=== PATIENT | female | born 1935 | race Caucasian/White ===

== ENCOUNTER → 2017-06-02 10:38 | Outpatient (CLI) | payer MEDICARE, SELFPAY ==
[2017-06-02 12:15] LABS: AST(SGOT) 19 U/L (15-37); Alanine Aminotransfer ALT/SGPT 20 U/L (13-56); Anion Gap 8 (5-15); BUN 25 mg/dL (7-18); BUN/Creat Ratio 33.7 RATIO (10-20); Calcium,Total 9.4 mg/dL (8.5-10.1); Chloride 105 mmol/L (98-107); Cholesterol 135 mg/dL (200); Creatinine, Serum 0.74 mg/dL (0.55-1.02); EST Glomerular Filtration Rate 80 mL/min (>60); Est Glom Filt Rate - Afr Amer 97 mL/min (>60); Glucose 98 mg/dL (74-106); High Density Lipoprotein 57 mg/dL; Potassium 3.7 mmol/L (3.5-5.1); Sodium Level 139 mmol/L (136-145); Triglycerides 127 mg/dL; Very Low Density Lipoprotein 25 mg/dL (5-40)
== END ==
PROVIDERS: Family Provider Family Medicine; PCP Family Medicine; Visit Provider Family Medicine
DX: I10 Essential (primary) hypertension (principal); E78.5 Hyperlipidemia, unspecified
CPT/HCPCS: 36415; 80048; 80061; 84450; 84460

== ENCOUNTER → 2017-09-22 12:43 | Outpatient (CLI) | payer MEDICARE, SELFPAY ==
--- NOTE | 2017-09-22 12:52 | RAD_ITS ---
STUDY: X-RAY - PELVIS AND RIGHT HIP REASON FOR EXAM: Right hip pain. TECHNIQUE: Radiological exam, hip, unilateral, with pelvis when performed; 2 or 3 views. COMPARISON: Radiographs 07/16/2016 and 01/29/2015. FINDINGS: There is a soft tissue calcification overlying the medial right femoral head neck junction unchanged since the prior study. There are small calcifications adjacent to the ischial tuberosities bilaterally unchanged since the prior study. There is evidence of vertebroplasty at the L3 level. Normal bilateral iliac wings, sacroiliac joints and visualized sacrum. Normal bilateral superior and inferior pubic rami. Normal pubic symphysis. Normal bilateral ischial tuberosities. Normal visualized femoral head. Normal acetabulum. Normal hip joint. RAD/Hip 2-3 Views with Pelvis IMPRESSION: Soft tissue calcifications without interval change. Otherwise, unremarkable x-ray examination of the right hip. Electronically Signed: Gregg Jama MD at 9:57 EDT Tel , Service support ,
== END ==
PROVIDERS: Family Provider Family Medicine; PCP Family Medicine; Visit Provider Family Medicine
DX: M25.551 Pain in right hip (principal)
CPT/HCPCS: 73502

== ENCOUNTER → 2017-11-30 11:39 | Outpatient (CLI) | payer MEDICARE, SELFPAY ==
[2017-11-30 14:14] LABS: Absolute Neutrophil Count 4.5 X10^3/uL (2.0-7.7); Basophil# 0.04 X10^3/uL; Basophil% 0.5 % (0-1); Eosinophil# 0.11 X10^3/uL; Eosinophils% 1.5 % (0-5); Hematocrit 38.9 % (37-47); Hemoglobin 13.5 g/dl (12.0-15.0); Lymphocyte % 24.4 % (19-41); Mean Corp Hgb Conc 34.7 g/gl (32-36); Mean Corpuscular Hgb 31.4 pg (27.0-32.0); Mean Corpuscular Volume 90.5 fL (81-99); Mean Platelet Vol. 9.9 fl (6.2-12.0); Monocyte# 0.95 X10^3/uL; Monocyte% 12.9 % (0-10); Neutrophil # 4.46 X10^3/uL (2.7-7.7); Neutrophil % 60.6 % (47-70); Platelet Count 208 K/mm3 (150-450); RBC Distribution Width CV 13.2 % (11.6-14.6); RBC Distribution Width SD 43.4 fl (35.1-43.9); White Blood Count 7.4 K/mm3 (4.4-11.0)
[2017-11-30 14:17] LABS: POSITIVE COUNT NO; POSITIVE DIFFERENTIAL NO; POSITIVE MORPHOLOGY NO
[2017-11-30 14:25] LABS: ALB/GLOB Ratio 0.8 RATIO (0.9-2.4); AST(SGOT) 15 U/L (15-37); Alanine Aminotransfer ALT/SGPT 18 U/L (13-56); Albumin, Serum 3.2 g/dL (3.2-5.0); Alkaline Phosphatase 64 U/L (45-117); Anion Gap 7 (5-15); BUN 20 mg/dL (7-18); BUN/Creat Ratio 28.2 RATIO (10-20); Calcium,Total 9.2 mg/dL (8.5-10.1); Chloride 101 mmol/L (98-107); Creatinine, Serum 0.71 mg/dL (0.55-1.02); EST Glomerular Filtration Rate 84 mL/min (>60); Est Glom Filt Rate - Afr Amer 102 mL/min (>60); Globulin 3.9 g/dL (2.2-4.2); Glucose 84 mg/dL (74-106); Potassium 3.5 mmol/L (3.5-5.1); Protein, Total 7.1 g/dL (6.4-8.2); Sodium Level 136 mmol/L (136-145); Thyroid Stim Hormone (TSH) 0.88 uIU/mL (0.358-3.74)
== END ==
PROVIDERS: Family Provider Family Medicine; PCP Family Medicine; Visit Provider Family Medicine
DX: R06.09 Other forms of dyspnea (principal)
CPT/HCPCS: 36415; 80053; 84443; 85025

== ENCOUNTER 2017-12-07 10:00 | Outpatient (RCR) | payer MEDICARE, SELFPAY ==
--- NOTE | 2017-10-09 08:10 | HP.PTEVAL_ITS ---
Patient's Visit Information BA GUADARRAMA is a 82 year old F referred to Physical Therapy by Olga Hurst MD with a diagnosis of Right hip and back pain. Date of Evaluation: 10/09/17 Physical Therapist: Rani Mares - Visit Plan Frequency: 2x /Week Duration: 4 Weeks Plan: Focus on LE and core s/s - Subjective Subjective: Patient reports that her right hip was really bothering her and she went to see the MD who thinks the pain is coming from her back. Thursday she had an injection in her right hip. The injection has helped. She always hurts in the AM. Worst: 02/03 Agg: early in the AM, weather. Eases: Tylenol, pain manamgement, ice/heat and moving. Best: 06/06 Normally zach shooting pains that go to the ankle. N/T comes and goes- no difficulty with the left side. She has been walking a mile a day at [employer] and outside when its nice. Sleep: occasionally wakes her up but she sleeps better when tylenol before bed. X-ray was taken a few weeks ago. PMhx: HTN Meds: hydrocholosel, lysterel, baby asprin, statin.She lives with her sister in law who does all the driving. She lives in a 1 story home with 2 stairs to get into the back door. - Objective Posture: Static sitting with slouched posture and increase posterior pelvic tilt ; Static standing; maintains upright posture but does weight shift to the left. HR/TR: able with UE A-reports pulling in the right LE. SLS: WS but unable to SLS and reports pain in the right hip. Sit to Stand: able with good technique with 2 UE A. ROM: Lumbar: flexion decreased by 50%, extn to neutral, SB and Rot: decreased by 50% bilateral. Hip/Knee/Ankle: WFL- reports discomfort with right hip ROM. Gait: antalgic- uses rollerator but is moving better than discharge from PT in February. She has a good teri with decreased stance on the Right LE. Balance: Static and dynamic sitting: good, Static Standing: fair. Dynamic Standing: fair minus. Strength: Core: poor, Right Hip: 4-/5 throughout Knee: 4/5, Ankle: 4/5, Left:Hip: 4/5, Knee: 4+/5, Ankle: 4+/5. Flex: HS: severe, Gastroc: mod. Special Test: slump: positive - Goals Goal 1:: Patient will be I with HEP and progression Goal Time Frame: 4-6 Weeks Goal 2:: Patient will ambulate >300 feet with LRD and normalized gait pattern Goal Time Frame: 4-6 Weeks Goal 3:: Patient will maintain proper posture t/o tx session to demo increased core s/s Goal Time Frame: 4-6 Weeks Goal 4:: Patient will report 5/10 pain for 1 week at its worst Goal Time Frame: 4-6 Weeks - Rehabilitation Potential Physical Therapy Diagnosis: Patient presents with hypomobility- she has decreased core s/s leading to poor posture and increased pain Rehabilitation Potential: Fair - Anticipated Interventions Patient/Client Instruction: Educate patient on: Benefits of Fitness Program For the Purpose of:: To improve ability to perform ADL's Therapeutic Exercise to Include: Strength training, Balance training, Body mechanics, Postural training, Flexibilty training, Gait and locomotor training, Dynamic Lumbar Stabilization For the Purpose of:: To improve muscle performance and motor function TENS: Yes Cryotherapy (ice pack, ice massage): Yes Thermo therapy (hot pack): Yes Ultrasound (thermal/non thermal): Yes For the Purpose of:: To decrease pain Thank you for the opportunity to evaluate your patient. For Medicare and Medicare HMO plans, please review the plan of care and approve it. It will need to be FAXED BACK to us at [phone] for Medicare purposes. Please let me know if there are questions or concerns regarding this plan of care. Physician Signature: Date:
--- NOTE | 2017-11-23 10:59 | HP.PTREVAL_ITS ---
Olga Hurst MD, It has been my pleasure to treat BA COTTONHIFLOYD over the last 10 visits for Right hip and back pain. Please see the progress note below for an update on the physical therapy plan of care! Subjective: Patient reports that she is doing great- she is 80% better. she feels she is getting stronger just isn't quite there yet- would like to do an additional 2 weeks. She has a little more pain today secondary to being on her feet all weekend. Objective/Function: Posture: Static sitting with slouched posture and increase posterior pelvic tilt; Static standing; maintains upright posture with equal weight shifting. HR/TR: able with UE A support. SLS: WS but unable to SLS and reports pain in the right hip. Sit to Stand: able with good technique with 2 UE A. ROM: Lumbar: flexion decreased by 50%, extn to neutral, SB and Rot: decreased by 50% bilateral. Hip/Knee/Ankle: WFL Gait: antalgic- uses rollerator but is moving better than initial evaluation. She has a good teri with decreased stance on the Right LE. Balance: Static and dynamic sitting: good, Static Standing: fair. Dynamic Standing: fair minus. Strength: Core: fair , Right Hip: 4/5 throughout Knee: 4+/5, Ankle: 4+/5, Left:Hip: 4/5, Knee: 4+/5, Ankle: 4+/5. Flex: HS: severe, Gastroc: mod. Special Test: slump: positive Plan Plan: Continue 2x a week for 2 weeks Goals Goal 1:: Patient will be I with HEP and progression Goal Time Frame: 4-6 Weeks Goal 2:: Patient will ambulate >300 feet with LRD and normalized gait pattern Goal Time Frame: 4-6 Weeks Goal 3:: Patient will maintain proper posture t/o tx session to demo increased core s/s Goal Time Frame: 4-6 Weeks Goal 4:: Patient will report 5/10 pain for 1 week at its worst Goal Time Frame: 4-6 Weeks Anticipated Interventions Patient/Client Instruction: Educate patient on: Benefits of Fitness Program For the Purpose of:: To improve ability to perform ADL's Therapeutic Exercise to Include: Strength training, Balance training, Body mechanics, Postural training, Flexibilty training, Gait and locomotor training, Dynamic Lumbar Stabilization For the Purpose of:: To improve muscle performance and motor function TENS: Yes Cryotherapy (ice pack, ice massage): Yes Thermo therapy (hot pack): Yes Ultrasound (thermal/non thermal): Yes For the Purpose of:: To decrease pain Please do not hesitate to contact me at [phone] by phone or Fax: if you have questions or concerns regarding this new plan of care! Sincerely, Rani Mares
--- NOTE | 2017-12-07 13:29 | HP.PTDCSUM ---
HP - PT D/C Summary It has been my pleasure to treat BA COTTONHIFLOYD under orders from Olga Hurst MD, for the diagnosis of Right hip and back pain for a total of 14 visit(s). Discharge Date: Please see the following information for a summary of their discharge status. - Subjective Subjective: Patient reports that she feels this round of therapy was really helpful. She is back to 75% of where she wants to be. No pain per say just achy. - Pain LOW BACK Pain Intensity (Out of 10): 0 RIGHT HIP Pain Intensity (Out of 10): 0 - Overall Improvement % Improvement: 80 - Objective Objective/Function: Posture: Static sitting with slouched posture and increase posterior pelvic tilt; Static standing; maintains upright posture with equal weight shifting. HR/TR: able with UE A support. SLS: WS- and will pick the opposite foot up off the floor with UE A. Sit to Stand: able with good technique with 2 UE A. ROM: Lumbar: flexion decreased by 50%, extn to neutral, SB and Rot: decreased by 50% bilateral. Hip/Knee/Ankle: WFL Gait: antalgic- uses rollerator but is moving better than initial evaluation. She has a good teri with decreased stance on the Right LE. Balance: Static and dynamic sitting: good, Static Standing: fair. Dynamic Standing: fair minus. Strength: Core: fair, Right Hip: 4/5 throughout Knee: 4+/5, Ankle: 4+/5, Left:Hip: 4/5, Knee: 4+/5, Ankle: 4+/5. Flex: HS: severe, Gastroc: mod. Special Test: slump: positive - Goals Goal 1:: Patient will be I with HEP and progression Goal Progress: Goal Met Goal 2:: Patient will ambulate >300 feet with LRD and normalized gait pattern Goal Progress: Progressing Goal 3:: Patient will maintain proper posture t/o tx session to demo increased core s/s Goal Progress: Progressing Goal 4:: Patient will report 5/10 pain for 1 week at its worst Goal Progress: Goal Met - Plan Plan: Discharge to I HEP - D/C Information If there are questions or concerns regarding this patient's physical therapy, please feel free to call me at [phone]. Thank you for the referral of this patient. Sincerely, Rani Mares
== END 2017-12-07 19:00 | disposition home or self-care (01) ==
LOC: PT 10:00
PROVIDERS: Family Provider Family Medicine; PCP Family Medicine; Visit Provider Family Medicine
DX: M25.551 Pain in right hip (principal)
CPT/HCPCS: 97110; 97162; 97164

== ENCOUNTER → 2018-01-13 08:43 | Outpatient (CLI) | payer MEDICARE, SELFPAY ==
[2018-01-13 08:49] LABS: Mucous, Urine 0 SEEN /hpf (<or=2+)
--- NOTE | 2018-01-13 09:03 | RAD_ITS ---
STUDY: X-RAY - THORACIC SPINE REASON FOR EXAM: Female, 82 years old. Back pain. TECHNIQUE: AP and lateral view(s) of the thoracic spine were obtained. COMPARISON: None. FINDINGS: There is an increase in the normal thoracic kyphosis. There is no substantial scoliosis. There is demineralization of the thoracic spine with endplate spondylosis. There is multilevel disc space narrowing of the thoracic spine. Atherosclerotic calcification of the aortic arch. RAD/Thoracic Spine 2 Views IMPRESSION: Multilevel spondylosis and degenerative changes. Electronically Signed: Israel Denton MD at 9:52 EDT Tel [phone], Service support ,
--- NOTE | 2018-01-13 09:03 | RAD_ITS ---
STUDY: X-RAY - PELVIS AND RIGHT HIP REASON FOR EXAM: Right hip pain. TECHNIQUE: Radiological exam, hip, unilateral, with pelvis when performed; 2 or 3 views. COMPARISON: Radiographs 09/22/2017. FINDINGS: There is a soft tissue calcification overlying the medial right femoral head/neck junction unchanged since prior study. There are small calcifications adjacent to the ischial tuberosities bilaterally unchanged since the prior study. There is evidence of vertebroplasty at L3. Normal bilateral iliac wings, sacroiliac joints and visualized sacrum. Normal bilateral superior and inferior pubic rami. Normal pubic symphysis. Normal bilateral ischial tuberosities. Normal visualized femoral head. Normal acetabulum. Normal hip joint. RAD/HIP, UNI W/ Pelvis 2-3 Views IMPRESSION: Soft tissue calcifications without interval change. Otherwise, unremarkable x-ray examination of the right hip. Electronically Signed: Gregg Jama MD at 10:44 EDT Tel , Service support ,
--- NOTE | 2018-01-13 09:03 | RAD_ITS ---
STUDY: X-RAY - LUMBAR SPINE REASON FOR EXAM: Female, 82 years old. Back pain TECHNIQUE: 5 view(s) of the lumbar spine were obtained. COMPARISON: 01/30/2017 FINDINGS: Normal lumbar lordosis. There is no substantial scoliosis. There is a normal alignment of the vertebrae. There is multilevel endplate spondylosis of the lumbar vertebrae. There is multi-level degenerative disc disease with multi-level disc space narrowing. There appears to be kyphoplasty cement noted at the L3 level with retained needle components in the posterior aspect. Stable from prior exam There is atherosclerotic calcification of the abdominal aorta without a demonstrated aneurysm. RAD/L/S Spine Min 4 Views IMPRESSION: As above Electronically Signed: Fahad Chavez DO at 8:33 EDT Tel , Service support ,
[2018-01-13 10:40] LABS: Color, Urine Yellow (Yellow); Glucose, Dipstick Normal (Normal); Ketone-Dipstick Negative (Negative); Leukocyte Esterase-Dipstick 500 /ul (Negative); Nitrite-Dipstick Negative (Negative); Occult Blood-Urine 250 /ul (Negative); Protein-Dipstick 30 mg/dl (Negative); Urine Bilirubin Dipstick Negative (Negative); Urine Clarity Sl. Cloudy (Clear); Urine Urobilinogen Normal (Normal)
[2018-01-13 10:47] LABS: Red Blood Cells-Urine 25-50 SEEN /hpf (0-5); Squamous Epithelial Cells - UA 0-5 SEEN /hpf (5-10); White Blood Cells 25-50 SEEN /hpf (0-5)
[2018-01-13 10:48] LABS: Bacteria 1+ /hpf (None Seen)
== END ==
PROVIDERS: Family Provider Family Medicine; PCP Family Medicine; Visit Provider Family Medicine
DX: R35.0 Frequency of micturition (principal); M25.551 Pain in right hip; M54.5 Low back pain; M54.6 Pain in thoracic spine
CPT/HCPCS: 72070; 72110; 73502; 81001; 87077; 87086; 87088

== ENCOUNTER → 2018-03-26 06:16 | Outpatient (CLI) | payer MEDICARE, SELFPAY ==
[2018-03-15 10:10] VITALS: BMI 34.0
[2018-03-15 11:52] VITALS: BMI 34.0
--- NOTE | 2018-03-26 14:30 | STRESSREP ---
Stress Test Report Date: 03/26/2018 Procedure: Pharmacologic stress nuclear imaging study Indications: Chest pain Consent: Per the patient Procedure: The patient underwent pharmacologic (Regadenoson) evaluation with a peak heart rate of 90 beats per minute (64 predicted maximal heart rate) and a peak blood pressure of 130/62 mmHg. The baseline ECG demonstrated normal sinus rhythm. The peak pharmacologic ECG demonstrated no obvious G changes. There were no cardiac dysrhythmias pretest, during pharmacologic infusion, or recovery. There was no complaint of chest discomfort during pharmacologic infusion or recovery. The examination was discontinued secondary to completion of protocol. Impression: 1. Pharmacologic (Regadenoson) evaluation 2. Peak pharmacologic ECG with no obvious ECG changes. 3. There were no cardiac dysrhythmias pretest, during pharmacologic infusion, or recovery. 4. Nuclear images pending Myocardial perfusion imaging study: Technique: The patient was injected with 11.4 millicuries of technetium 99m Cardiolite and subsequently rest SPECT Cardiolite nuclear imaging was obtained in the horizontal long, vertical long, and short axis views. The patient underwent pharmacologic (Regadenoson) evaluation with a peak heart rate of 90 beats per minute (64 % percent predicted maximal heart rate) and a peak blood pressure of 130/62 mmHg. The patient was injected with 34.1 millicuries of technetium 99m Cardiolite and subsequently stress SPECT Cardiolite nuclear imaging was obtained in the horizontal long, vertical long, and short axis views. A gated Cardiolite study at peak stress was obtained. Interpretation: Rest and stress SPECT Cardiolite nuclear imaging status post realignment, normalization, and attenuation correction demonstrate relative uniform tracer uptake and myocardial perfusion appearing within normal limits. There is end systolic thickening and brightening. The gated Cardiolite study demonstrates myocardial thickening and inward wall motion. The reported LVEF is 91 %. Impression: 1. Rest and stress SPECT Cardiolite nuclear imaging demonstrate relative uniform tracer uptake and myocardial perfusion appearing within normal limits. 2. The gated Cardiolite study reports an LVEF of 91 %. This note was generated with [employer] software. It may contain incorrect words, spelling, and punctuation that were not noted in checking the note before signing.
--- NOTE | 2018-03-26 16:36 | RAD_ITS ---
HISTORY: CHRONIC PAIN, NKI COMPARISON: 01/13/2018 FINDINGS: XR Hip Unilateral with Pelvis when performed; 3 Views: With comparison to previous, no significant change. No fracture or acute disease. The right and left femoral acetabular joint spaces are preserved. No bony erosions. Stable soft tissue calcifications at the hamstring origins bordering the ischial tuberosities, more so on the left. Vaginal pessary device, unchanged. Previous L3 kyphoplasty. The SI joints appear preserved. RAD/HIP, UNI W/ Pelvis 2-3 Views IMPRESSION: 1. No acute disease or significant change. 2. No significant arthritis of the right hip. 3. 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 at [id number] Reported and signed by: Remy Goodson MD Electronically Signed: Remy Goodson, at 4:30 EST Tel , Service support ,
--- OUTSIDE RECORDS SUMMARY | 2018-05-21 00:58 | XMS RPT_ITS ---
:1935 Author Organization OHIP Support Name Relationship Address Phone MARILYN CHEW Unavailable [address] + [place] [address] R Unavailable Unavailable Unavailable VARNS, HELENA Unavailable [address] + [place] [address] MARILYN CHEW Unavailable [address] + [place] [address] R Unavailable Unavailable Unavailable VARNS, HELENA Unavailable [address] + [place] [address] MARILYN CHWE Unavailable [address] + [place] [address] R Unavailable Unavailable Unavailable VARNS, HELENA Unavailable [address] + [place] [address] MARILYN CHEW Unavailable [address] + [place] [address] R Unavailable Unavailable Unavailable VARNS, HELENA Unavailable [address] + [place] [address] MARILYN CHEW Unavailable [address] + [place] [address] R Unavailable Unavailable Unavailable VARNS, HELENA Unavailable [address] + [place] [address] MARILYN CHEW Unavailable [address] + [place] [address] R Unavailable Unavailable Unavailable VARNS, HELENA Unavailable [address] + [place] [address] MARILYN CHEW Unavailable [address] + [place] [address] R Unavailable Unavailable Unavailable VARNS, HELENA Unavailable [address] + [place] [address] MARILYN CHEW Unavailable [address] + [place] [address] R Unavailable Unavailable Unavailable VARNS, HELENA Unavailable [address] + [place] [address] ANNEMARIE CEHWE Unavailable [address] + [place] [address] R Unavailable Unavailable Unavailable VARNS, HELENA Unavailable [address] + [place] [address] ANNEMARIE CHEWE Unavailable [address] + [place] [address] R Unavailable Unavailable Unavailable VARNS, HELENA Unavailable [address] + [place] [address] JEEVAN MARILYN Unavailable [address] + [place] [address] R Unavailable Unavailable Unavailable VARNS, HELENA Unavailable [address] + [place] [address] ANNEMARIE CHEWE Unavailable [address] + [place] [address] R Unavailable Unavailable Unavailable VARNS, HELENA Unavailable [address] + [place] [address] Care Team Providers Name Role Phone NEYFRANKOT WILLAMS, ZULEMA Referring Unavailable NEYHART WILLAMS, ZULEMA Attending Unavailable NEYHART WILLAMS, ZULEMA Referring Unavailable NEYHART WILLAMS, ZULEMA Referring Unavailable NEYHART WILLAMS, ZULEMA Attending Unavailable NEYHART WILLAMS, ZULEMA Referring Unavailable NEYHART WILLAMS, ZULEMA Attending Unavailable NEYHART WILLAMS, ZULEMA Attending Unavailable NEYHART WILLAMS, ZULEMA Referring Unavailable NEYHART WILLAMS, ZULEMA Attending Unavailable NEYHART WILLAMS, ZULEMA Attending Unavailable NEYHART WILLAMS, ZULEMA Referring Unavailable Jolliff, Olga Attending Unavailable Jolliff, Olga S Referring Unavailable Jolliff, Olga Primary Care Unavailable Jolliff, Olga Attending Unavailable Jolliff, Olga Primary Care Unavailable Rubin Arriaga Attending Unavailable Jolliff, Olga Referring Unavailable Jolliff, Olga Attending Unavailable Jolliff, Olga Referring Unavailable Jolliff, Olga Primary Care Unavailable Jolliff, Olga Attending Unavailable Basali, Ayman Referring Unavailable Jolliff, Olga Primary Care Unavailable Jolliff, Olga Attending Unavailable Jolliff, Olga Primary Care Unavailable Giacomo Dyer Attending Unavailable Jolliff, Olga Primary Care Unavailable Kline Daphnie Attending Unavailable Jolliff, Olga Referring Unavailable Sal Judd Attending Unavailable Jolliff, Olga Referring Unavailable Kline, Daphnie Attending Unavailable Kline, Daphnie Referring Unavailable Jolliff, Olga Primary Care Unavailable Jolliff, Olga Consulting Unavailable Jolliff, Olga Attending Unavailable Jolliff, Olga Referring Unavailable Jolliff, Olga Primary Care Unavailable Jolliff, Olga Attending Unavailable Jolliff, Olga Referring Unavailable Jolliff, Olga Primary Care Unavailable PROBLEMS PROBLEMS DATE TYPE CONDITION / CODE ATTENDING STATUS SOURCE Unknown E78.5 - Hyperlipidemia, [place]line, Active [place] 8 unspecified / [facility] E78.5(ICD-10) Hospital Repository Unknown I10 - Essential (primary) Kline, Active [place] hypertension / [facility] I10(ICD-10) Hospital Repository Unknown R07.89 - Other chest pain [place], Active [place] / R07.89(ICD-10) [facility] Hospital Repository Unknown E78.00 - Pure [place], Active [place] 8 hypercholesterolemia, [facility] unspecified / Hospital E78.00(ICD-10) Repository Unknown E78.0 - Pure [place], Active [place] 8 hypercholesterolemia / [facility] E78.0(ICD-10) Hospital Repository Unknown R55 - Syncope and [place]line, Active [place] 8 collapse / R55(ICD-10) [facility] Hospital Repository Unknown M25.551 - Pain in right [place], Active [place] 8 hip / M25.551(ICD-10) [facility] Hospital Repository Unknown R35.0 - Frequency of [place], Active [place] 8 micturition / [facility] R35.0(ICD-10) Hospital Repository Unknown M54.9 - Dorsalgia, [place], Active [place] unspecified / [facility] M54.9(ICD-10) Hospital Repository Active Unknown / UNK(Unknown) NEYHART Active [place] [facility] WILLAMS, Clinic Main ZULEMA [place] Repository Active Encounter for screening NA Active [place] 8 for malignant neoplasm of Clinic Main colon / Z12.11(ICD-10) [place] Repository Active Encounter for screening NA Active [place] 8 mammogram for malignant Clinic Main neoplasm of breast / [place] Z12.31(ICD-10) Repository Unknown 272.4 - Other and Olga Hurst Active [place] 8 unspecified [facility] hyper[facility] / Hospital 272.4(ICD-9) Repository Unknown 401.9 - Unspecified Olga Hurst Active [place] 8 essential hypertension / [facility] 401.9(ICD-9) Hospital Repository PROCEDURES PROCEDURES No Procedure Records FoundRESULTS RESULTS VENOUS DUPLEX LOWER Observed: 04/13/2018 Status: F Source: [place] EXTREMITY 7:24 PM [facility] REPOSITORY [facility] Cardiovascular Services [address] [place] [id number] Venous Duplex US, Unilateral 04/13/18 1523 MR#: [id number] Acct: [id number] Name: BA SENIOR Rep #: [id number] : 1935 83 From: Wolf Severino MD Attending Dr: Olga Hurst MD Status: REG CLI Ordering Dr: Olga Hurst MD Date: 04/13/18 Location: CVS Sex: F C Admitted: Reason For Study: swelling RIGHT LEFT GSV is normal. CFV is compressible, spontaneous, phasic, CFV is compressible, spontaneous, phasic, competent, and demonstrates normal competent and demonstrates normal augmentation. augmentation. FV is compressible, spontaneous, phasic, competent and demonstrates normal augmentation. POP V is compressible, spontaneous, phasic, competent and demonstrates normal augmentation. T/P Trunk is compressible. PTV is compressible. RT PerV is compressible. Procedure Exam performed in department. The exam was diagnostic. A preliminary report was called and/or faxed to Dr. Hurst. Interpretation Summary Deep veins of the right lower extremity are patent and compressible segmentally. There is no evidence of right lower extremity deep vein thrombosis. Valvular competence appears intact within the proximal deep venous system on the right . The right greater saphenous vein appears patent and compressible segmentally. Ordering Physician: Olga Hurst Performed By: Missael Oakley, RVT 04/13/181923 Date Wolf Severino MD CC: Olga Hurst MD; Olga Hurst MD Date Dictated: 04/13/18 1523 Date Transcribed: 04/13/181923 Manager Therapy: Signed INITAL EVALUATION (1) Observed: 04/08/2018 Status: F Source: [place] - PT 5:27 PM [facility] REPOSITORY [facility] Physical Therapy [address] [place] [address] Fax REHABILITATION SERVICES INITIAL EVALUATION MR#: [id number] Acct: [id number] Name: BA SENIOR Rep #: [id number] : 1935 83 From: Jeevan Culver PT, Cert. MDT, OCS Referring Dr.: Olga Hurst MD Status: REG R Insurance: [facility] SELF PAY INSURANCE Patient's Visit Information BA SENIOR is a 83 year old F referred to Physical Therapy by Olga Hurst MD with a diagnosis of RIGHT HIP PAIN. Date of Evaluation: 04/07/18 Physical Therapist: Jeevan Culver PT, - Visit Plan Frequency: 2x /Week Duration: 6WEEKS Plan: [facility] for POSTURAL EX'S GRADED DLS,ROM HIP KNEE - Subjective Findings: This 83 y/o female presents to physical therapy with right hip pain. Patient has had hip and knee pain for over a year. Patient had h/o kyphoplasty in September 2016. Patient also has had prior PT for back and hip with [facility]. Patient has used rollator many about one year for for balance. Patient pain located in right gluteus region and right knee. Patient symptoms walking and standing 2 mins,unable to lift . Patient has difficulty with steps.Symptoms better with rest and sitting. Symptoms affects ADL'S and function/QOL. BOWEL/BLADDER -. Denies pararhesia/tingling. Pateinmt has difficulty walking in community. When patient seen DR x-rays done. Patient symptoms affect sleeping. Patient plans to seen pain management DR Jones. SOCAIL: ,sister in law lives with patient. VOCATION: - Pain Right Buttocks Pain Intensity (Out of 10): 10 Pain Intensity Range: 10 Right Knee Pain Intensity (Out of 10): 10 Pain Intensity Range: 10 - Objective POSTURE: mild thoracic kyphosis ,hips knees flexed foward,foward posture. PALPATION: right knee tender grossly ,right gluteus. NEURO: denies parathesia/tingling,reflexes L3-4,L4-5,L5-S1 1/3. GAIT: mild foward posture reciprocal pattern slow cadnce decrease stance time right leg. AROM: hip 100 degrees,abd 40 degrees ,knee 120 degrees supine flexion. MMT: quads/hams 3+/5 right ,left 4-/5,hip flexion 3+/5 bilateral ankle 4/5. LUMBAR ROM: flexion mod pain ,severe extesnion pain right buttuck,right side glides mod pain to right glut. BALANCE: fair+ with rollator - Special Tests L/S Slump test left side: Negative L/S Slump test right side: Negative L/S Left Straight Leg Raise: Negative L/S Right Straight Leg Raise: Negative R Hip Scour: Negative R Hip Trendelenberg - Glut Medius: Negative R Hip Adriana - IT Band: Negative - Goals Goal 1:: Independant with [facility] program Goal Time Frame: 4-6 Weeks Goal 2:: Patient right hip posterior gluteus and knee pain by 40-% to improve gait Goal Time Frame: 4-6 Weeks Goal 3:: Patient to improve gait with rollator with community distances with less pain Goal Time Frame: 4-6 Weeks Goal 4:: Patient increase strength of BLE by 1/2 grade to improve function with gait . Goal Time Frame: 4-6 Weeks Goal 5:: Patient to improve LFES score by 10 points or greater to improve gait. Goal Time Frame: 4-6 Weeks - Rehabilitation Potential Physical Therapy Diagnosis: Patient was refeered to PT for right hip but pain located right gluteus with pain with lumbar ROM,eakness right leg ,scouring test - for hip ,symptoms worse with walking and standing thus needs rollator thus benifit from skilled PT with [facility] Rehabilitation Potential: Good - Anticipated Interventions Patient/Client Instruction: Educate patient on: Condition, Plan of Care For the Purpose of:: To decrease pain, To increase ROM, To improve muscle performance and motor function, To improve ability to perform ADL's, To increase tolerance to activity/condition/position, To improve ability of physical actions for home/community/work/leisure, To improve gait and locomotor functions, To improve health of tissue, To decrease soft tissue restriction, To increase flexibility/ROM, To assume or resume ADL's, To reduce risk of recurrence, To improve ability to perform tasks related to life management Therapeutic Exercise to Include: Strength training, Postural training, Flexibilty training, In an aquatic setting, Active ROM, Dynamic Lumbar Stabilization For the Purpose of:: To decrease pain, To increase ROM, To improve ability to perform ADL's, To increase tolerance to activity/condition/position, To improve ability of physical actions for home/community/work/leisure, To improve gait and locomotor functions, To improve health of tissue, To decrease soft tissue restriction, To improve safety with gait, To improve ability to perform tasks related to life management Thank you for the opportunity to evaluate your patient. For Medicare and Medicare HMO plans, please review the plan of care and approve it. It will need to be FAXED BACK to us at [phone] for Medicare purposes. For Medicare only, by signing this I certify the plan of care. Please let me know if there are questions or concerns regarding this plan of care. Physician Signature: Date: <Electronically signed by Jeevan Culver PT, Cert. MDT, OCS> 04/08/18 6217 CC: Olga Hurst MD LIZ Signed CNOV Observed: 04/07/2018 Status: COMPLETED Source: [place] 11:20 AM [facility] REPOSITORY Office Visit (WOOB) NATEBA BARRIENTOS ([id number]) 1935 F Date Time Provider Department 04/07/18 11:20 AM ZULEMA DUEÑAS During your visit today, we recorded the following information about you: Blood pressure 114/70 Zulema Lemus MD 04/07/2018 11:56 AM Signed Ba Puente Parrish is a 83 year old female who presents for pessary maintenance. Pt Reports over weekend noticed bloody discharge and foul odor. Pt denies pain, dysuria or fever. Pt reports improvement in UTIs after using Vaginal estrogen. Pt reports has never had bleeding before and is concerned- reports bleeding is heavier then spotting. 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 - Unspecified urinary incontinence Incontinence, stress/CYSTOCELE, RECTOCELE - Urge incontinence mild PAST SURGICAL HISTORY Procedure Laterality Date - APPENDECTOMY - BACK SURGERY HX 09/2016 - BX OF BREAST; INCISIONAL 2003 Bx of breast, incisional - KNEE SCOPE,DIAGNOSTIC 01-12-04 Arthroscopy, knee - LIGATE FALLOPIAN TUBE Tubal ligation - PAST SURGICAL HISTORY OF 03-03-2011 left-sided frontal craniotomy for excision of meningioma - TOTAL KNEE 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-19-04 Knee replacement, total left FAMILY HISTORY Problem Relation Age of Onset - Hypertension Mother - Heart Mother - Cancer Mother lung - Cancer Father LUNG - Heart Father - Heart Brother STROKE - Heart Sister - Diabetes Sister - Diabetes Paternal Aunt - Cancer Sister CERVIX Social History Marital status: Spouse name: Ajit [place] Years of education: Number of children: 3 Occupational History Occupation Employer Comment [employer] Ret[employer] Social History Main Topics Smoking status: Never Smoker Smokeless tobacco: Never Used Alcohol use: No Drug use: No Sexual activity: Not Currently Partners with: Male Current Outpatient Prescriptions: Aspirin 81 mg Tab Take 81 mg by mouth. atorvastatin (LIPITOR) 40 mg tablet Take 1 tablet by mouth daily at bedtime. For cholesterol. Calcium Citrate-Vitamin D3 (CITRACAL + D) 315-250 mg-unit Tab Take as directed estradiol (ESTRACE) 0.01 % (0.1 mg/gram) vaginal cream Apply fingertip amount nightly x 4 weeks then use 2-3 times per week hydrochlorothiazide (HYDRODIURIL, ESIDRIX) 25 mg tablet Take 1 tablet by mouth once daily. lisinopril (ZESTRIL, PRINIVIL) 10 mg tablet Take 1 tablet by mouth once daily. mag hydrox/aluminum hyd/simeth (MAGLOX ORAL) Take by mouth. nystatin (NYSTOP) powder Apply 1 application to affected area four times daily. oxyCODONE IR (ROXICODONE) 5 mg immediate release tablet phenazopyridine (PYRIDIUM, GERIDIUM) 200 mg tablet tiZANidine (ZANAFLEX) 4 mg tablet Take 1 tablet by mouth every 8 hours as needed (muscle spasms). (Patient not taking: Reported on 08/26/2017 ) No current facility-administered medications for this visit. Allergies As of Date: 04/07/2018 Allergen Noted Reaction AMOXICILLIN 04/16/2005 Swelling ATARAX [HYDROXYZINE HCL] 04/16/2005 Swelling CEPHALEXIN 07/15/2012 Rash CODEINE 06/25/2007 GI Upset DICICLOMINE [OTHER] 04/16/2005 Swelling FLEXERIL [CYCLOBENZAPRINE HCL] 04/16/2005 Swelling ORUVAIL [KETOPROFEN] 04/16/2005 Swelling PREDNISONE 09/11/2014 Rash SUDAFED [PSEUDOEPHEDRINE] 08/24/2009 Intolerance SULFABENZAMIDE 04/16/2005 Anaphylaxis TRAMADOL 12/31/2014 Intolerance VOLTAREN [DICLOFENAC] 04/16/2005 Swelling Fully Assessed 01/13/2018 REVIEW OF SYSTEMS Abdomen: No abdominal pain Bladder: no dysuria .. Expanded ROS: GENERAL: Negative for fever Allergies and current medication updated:Yes EXAM: BP 114/70 GENERAL: pleasant, female in no apparent distress HEENT: Normocephalic and atraumatic NECK: full range of motion DERMATOLOGY: Normal, without lesions, non-icteric and non-hirsute PELVIC: pessary removed - external genitalia normal, normal Bartholin's glands, urethra, [place]'s glands, no vulvar lesions, no cervical lesions, normal appearing perineal body and perianal region, Moderate amt of yellow discharge with odor- c/w BV- Some blood noted in vault and at OS. No ulcerations noted. BIMANUAL: uterus normal size, shape and consistency, no adnexal masses and non-tender NEURO: alert and oriented x3,exam grossly non-focal ASSESSMENT AND PLAN: Encounter Diagnosis ICD-10-CM 1. PMB (postmenopausal bleeding) N95.0 PELVIC US WHI ENDOMETRIAL BIOPSY 2. Other female genital prolapse N81.89 3. Pessary maintenance Z46.89 4. Bacterial vaginitis N76.0 metroNIDAZOLE (FLAGYL) 500 mg tablet B96.89 5. RTO one week- will consider EMB depending on ultrasound results and replace pessary. Zulema Lemus MD Referring Provider: SELF [200] Allergies As of Date: 04/07/2018 Noted Allergy Reaction AMOXICILLIN 04/16/2005 7 - Swelling ATARAX (HYDROXYZINE HCL) 04/16/2005 7 - Swelling CEPHALEXIN 07/15/2012 2 - Rash CODEINE 06/25/2007 8 - GI Upset Comments: nausea DICICLOMINE [Other] 04/16/2005 7 - Swelling FLEXERIL (CYCLOBENZAPRINE HCL) 04/16/2005 7 - Swelling ORUVAIL (KETOPROFEN) 04/16/2005 7 - Swelling PREDNISONE 09/11/2014 2 - Rash Comments: rash SUDAFED (PSEUDOEPHEDRINE) 08/24/2009 5 - Intolerance Comments: Palpitations, heart racing SULFABENZAMIDE 04/16/2005 10 - Anaphylaxis TRAMADOL 12/31/2014 5 - Intolerance 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 VOLTAREN (DICLOFENAC) 04/16/2005 7 - Swelling Date Reviewed: 04/07/2018 Reviewed by: Kendy Dozier Ma - Fully Assessed Reason for Visit: Pessary [[id number]] Primary Visit Diagnosis:PMB (postmenopausal bleeding) [N95.0] Other Visit Diagnoses:Other female genital prolapse [N81.89] Pessary maintenance [Z46.89] Bacterial vaginitis [N76.0, B96.89] Order(s):PELVIC US WHI [[id number]] Order #: [id number]: 1 metroNIDAZOLE (FLAGYL) 500 mg tabletTake 1 tablet by mouth twice daily for 7 days.Disp: 14 tabletRfl: 0 ENDOMETRIAL BIOPSY [[id number]] Order #: [id number] Prescriptions as of 04/07/2018 Sig: ASPIRIN 81 MG TABLET Take 81 mg by mouth. ATORVASTATIN 40 MG TABLET Take 1 tablet by mouth daily * CALCIUM CITRATE-VITAMIN D3 31* Take as directed ESTRADIOL 0.01% (0.1 MG/GRAM)* Apply fingertip amount nightl* HYDROCHLOROTHIAZIDE 25 MG TAB* Take 1 tablet by mouth once d* LISINOPRIL 10 MG TABLET Take 1 tablet by mouth once d* MAGLOX ORAL Take by mouth. METRONIDAZOLE 500 MG TABLET Take 1 tablet by mouth twice * NYSTATIN 100,000 UNIT/GRAM TO* Apply 1 application to affect* OXYCODONE 5 MG TABLET PHENAZOPYRIDINE 200 MG TABLET TIZANIDINE 4 MG TABLET Take 1 tablet by mouth every * Patient not taking: Reported on 08/26/2017 Problem List As Of Date 04/07/2018 Noted Resolved PAIN IN JOINT, LOWER LEG [M25.569] INVALID FOR*11/19/2007 Other and Unspecified Hyperlipidemia [E78.5] INVALID FOR* Essential Hypertension, Benign [I10] INVALID FOR* More... OSTEOPENIA [M89.9, M94.9] INVALID FOR* More... Lumbago [M54.5] INVALID FOR* Osteoarth NOS-L/Leg [M17.10] INVALID FOR* Routine general medical examination at a health*INVALID FOR*09/23/2011 Class: Chronic More... Routine gynecological examination [Z01.419] INVALID FOR*09/23/2011 Class: Chronic More... Symptomatic menopausal or female climacteric st*INVALID FOR*09/23/2011 Female Stress Incontinence [N39.3] INVALID FOR* Urgency of urination [R39.15] INVALID FOR*09/23/2011 Nocturia [R35.1] INVALID FOR*09/23/2011 Postmenopausal Atrophic Vaginitis [N95.2] INVALID FOR* Screening for malignant neoplasm of the cervix *INVALID FOR*09/23/2011 Breast screening, unspecified [Z12.31] INVALID FOR*09/23/2011 Cystocele, Midline [N81.11] INVALID FOR* Solitary cyst of breast [N60.09] INVALID FOR*09/23/2011 Impaired fasting glucose [R73.01] INVALID FOR* Hypertension [I10] 09/23/2011 Benign meningioma [D32.9] Preop exam for internal medicine [Z01.818] 09/23/2011 Seizures [R56.9] Uterovaginal prolapse, incomplete [N81.2] INVALID FOR* Dysuria [R30.0] INVALID FOR* Recurrent UTI [N39.0] INVALID FOR* Frequency of urination [R35.0] INVALID FOR* Left flank pain [R10.9] INVALID FOR* Degenerative disc disease [WRB9125] INVALID FOR* Cervical strain [S16.1XXA] INVALID FOR* Prescriptions ordered this encounter Disp Refills Start End METRONIDAZOLE 500 MG TABLET 14 t* 0 04/07/2018 04/14/2018 Route: ORAL Sig: Take 1 tablet by mouth twice daily for 7 days. Disposition: Return in about 9 days (around 04/16/2018). Follow-up and Disposition History Recorded Encounter Status:Closed by ZULEMA WILLAMS MD on 04/07/18 PROGRESS Observed: 04/07/2018 Status: COMPLETED Source: [place] 11:17 AM [facility] [place] REPOSITORY HNO ID: [id number] Author: Zulema Willams Service: (none) Author Type: Physician Type: Progress Notes Filed: 04/07/2018 11:56 AM Note Text: Ba Senior is a 83 year old female who presents for pessary maintenance. Pt Reports over weekend noticed bloody discharge and foul odor. Pt denies pain, dysuria or fever. Pt reports improvement in UTIs after using Vaginal estrogen. Pt reports has never had bleeding before and is concerned- reports bleeding is heavier then spotting. 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 - Unspecified urinary incontinence Incontinence, stress/CYSTOCELE, RECTOCELE - Urge incontinence mild PAST SURGICAL HISTORY Procedure Laterality Date - APPENDECTOMY - BACK SURGERY HX 09/2016 - BX OF BREAST; INCISIONAL 2003 Bx of breast, incisional - KNEE SCOPE,DIAGNOSTIC 01-12-04 Arthroscopy, knee - LIGATE FALLOPIAN TUBE Tubal ligation - PAST SURGICAL HISTORY OF 03-03-2011 left-sided frontal craniotomy for excision of meningioma - TOTAL KNEE 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-19-04 Knee replacement, total left FAMILY HISTORY Problem Relation Age of Onset - Hypertension Mother - Heart Mother - Cancer Mother lung - Cancer Father LUNG - Heart Father - Heart Brother STROKE - Heart Sister - Diabetes Sister - Diabetes Paternal Aunt - Cancer Sister CERVIX Social History Marital status: Spouse name: Ajit Henley Years of education: Number of children: 3 Occupational History Occupation Employer Comment [employer] Ret[employer] Social History Main Topics Smoking status: Never Smoker Smokeless tobacco: Never Used Alcohol use: No Drug use: No Sexual activity: Not Currently Partners with: Male Current Outpatient Prescriptions: Aspirin 81 mg Tab Take 81 mg by mouth. atorvastatin (LIPITOR) 40 mg tablet Take 1 tablet by mouth daily at bedtime. For cholesterol. Calcium Citrate-Vitamin D3 (CITRACAL + D) 315-250 mg-unit Tab Take as directed estradiol (ESTRACE) 0.01 % (0.1 mg/gram) vaginal cream Apply fingertip amount nightly x 4 weeks then use 2-3 times per week hydrochlorothiazide (HYDRODIURIL, ESIDRIX) 25 mg tablet Take 1 tablet by mouth once daily. lisinopril (ZESTRIL, PRINIVIL) 10 mg tablet Take 1 tablet by mouth once daily. mag hydrox/aluminum hyd/simeth (MAGLOX ORAL) Take by mouth. nystatin (NYSTOP) powder Apply 1 application to affected area four times daily. oxyCODONE IR (ROXICODONE) 5 mg immediate release tablet phenazopyridine (PYRIDIUM, GERIDIUM) 200 mg tablet tiZANidine (ZANAFLEX) 4 mg tablet Take 1 tablet by mouth every 8 hours as needed (muscle spasms). (Patient not taking: Reported on 08/26/2017 ) No current facility-administered medications for this visit. Allergies As of Date: 04/07/2018 Allergen Noted Reaction AMOXICILLIN 04/16/2005 Swelling ATARAX [HYDROXYZINE HCL] 04/16/2005 Swelling CEPHALEXIN 07/15/2012 Rash CODEINE 06/25/2007 GI Upset DICICLOMINE [OTHER] 04/16/2005 Swelling FLEXERIL [CYCLOBENZAPRINE HCL] 04/16/2005 Swelling ORUVAIL [KETOPROFEN] 04/16/2005 Swelling PREDNISONE 09/11/2014 Rash SUDAFED [PSEUDOEPHEDRINE] 08/24/2009 Intolerance SULFABENZAMIDE 04/16/2005 Anaphylaxis TRAMADOL 12/31/2014 Intolerance VOLTAREN [DICLOFENAC] 04/16/2005 Swelling Fully Assessed 01/13/2018 REVIEW OF SYSTEMS Abdomen: No abdominal pain Bladder: no dysuria .. Expanded ROS: GENERAL: Negative for fever Allergies and current medication updated:Yes EXAM: BP 114/70 GENERAL: pleasant, female in no apparent distress HEENT: Normocephalic and atraumatic NECK: full range of motion DERMATOLOGY: Normal, without lesions, non-icteric and non-hirsute PELVIC: pessary removed - external genitalia normal, normal Bartholin's glands, urethra, Clear [place]'s glands, no vulvar lesions, no cervical lesions, normal appearing perineal body and perianal region, Moderate amt of yellow discharge with odor- c/w BV- Some blood noted in vault and at OS. No ulcerations noted. BIMANUAL: uterus normal size, shape and consistency, no adnexal masses and non-tender NEURO: alert and oriented x3,exam grossly non-focal ASSESSMENT AND PLAN: Encounter Diagnosis ICD-10-CM 1. PMB (postmenopausal bleeding) N95.0 PELVIC US WHI ENDOMETRIAL BIOPSY 2. Other female genital prolapse N81.89 3. Pessary maintenance Z46.89 4. Bacterial vaginitis N76.0 metroNIDAZOLE (FLAGYL) 500 mg tablet B96.89 5. RTO one week- will consider EMB depending on ultrasound results and replace pessary. Zulema Lemus MD KNEE 3 VIEWS Observed: 03/30/2018 Status: F Source: [place] 12:05 PM [facility] REPOSITORY [facility] Imaging Services [address] [place] [address] Knee 3 Views MR#: [id number] Acct: [id number] Name: BA SENIOR Martir Rep #: [id number] : 1935 F 83 From: Israel Denton MD PCP: Olga Hurst MD Status: REG CLI Study: Knee 3 Views Date of Exam: 03/30/18 Exam# [id number] Ordering Dr: Olga Hurst MD STUDY: X-RAY - RIGHT KNEE REASON FOR EXAM: Female, 83 years old. Right knee pain. TECHNIQUE: 3 view(s) of the knee. COMPARISON: None. FINDINGS: Normal visualized distal femur. Normal visualized proximal tibia and fibula. Normal proximal tibiofibular articulation. There is mild degenerative arthrosis of the medial femorotibial compartment. Normal lateral femorotibial compartment. Normal patellofemoral articulation. The soft tissue structures are unremarkable. RAD/Knee 3 Views IMPRESSION: Degenerative arthrosis. Electronically Signed: Israel Denton MD at 10:22 EST Tel [phone], Service support , CC: Olga Hurst MD Manager Therapy: Signed HIP, UNI W/ PELVIS Observed: 03/26/2018 Status: F Source: [place] 2-3 VIEWS 4:37 PM [facility] REPOSITORY [facility] Imaging Services [address] [place] [address] HIP, UNI W/ Pelvis 2-3 Views MR#: [id number] Acct: [id number] Name: BA SENIOR Rep #: [id number] : 1935 F 83 From: Remy Goodson MD PCP: Olga Hurst MD Status: REG CLI Study: HIP, UNI W/ Pelvis 2-3 Views Date of Exam: 03/26/18 Exam# [id number] Ordering Dr: Olga Hurst MD HISTORY: CHRONIC PAIN, NKI COMPARISON: 01/13/2018 FINDINGS: XR Hip Unilateral with Pelvis when performed; 3 Views: With comparison to previous, no significant change. No fracture or acute disease. The right and left femoral acetabular joint spaces are preserved. No bony erosions. Stable soft tissue calcifications at the hamstring origins bordering the ischial tuberosities, more so on the left. Vaginal pessary device, unchanged. Previous L3 kyphoplasty. The SI joints appear preserved. RAD/HIP, UNI W/ Pelvis 2-3 Views IMPRESSION: 1. No acute disease or significant change. 2. No significant arthritis of the right hip. 3. 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 at 0433 Reported and signed by: Remy Goodson MD Electronically Signed: Remy Goodson, at 4:30 EST Tel , Service support , CC: Olga Hurst MD Manager Therapy: Signed STRESS REPORT Observed: 03/26/2018 Status: F Source: [place] 2:33 PM [facility] REPOSITORY [facility] Cardiovascular Services [address] [place] [address] MR#: [id number] Acct: [id number] Name: BA SENIOR Rep #: [id number] : 1935 83 From: Rubin Arriaga MD Primary Care: Olga Hurst MD Status: REG CLI Ordering Dr: Sex: F C Stress Test Report Date: 03/26/2018 Procedure: Pharmacologic stress nuclear imaging study Indications: Chest pain Consent: Per the patient Procedure: The patient underwent pharmacologic (Regadenoson) evaluation with a peak heart rate of 90 beats per minute (64 predicted maximal heart rate) and a peak blood pressure of 130/62 mmHg. The baseline ECG demonstrated normal sinus rhythm. The peak pharmacologic ECG demonstrated no obvious G changes. There were no cardiac dysrhythmias pretest, during pharmacologic infusion, or recovery. There was no complaint of chest discomfort during pharmacologic infusion or recovery. The examination was discontinued secondary to completion of protocol. Impression: 1. Pharmacologic (Regadenoson) evaluation 2. Peak pharmacologic ECG with no obvious ECG changes. 3. There were no cardiac dysrhythmias pretest, during pharmacologic infusion, or recovery. 4. Nuclear images pending Myocardial perfusion imaging study: Technique: The patient was injected with 11.4 millicuries of technetium 99m Cardiolite and subsequently rest SPECT Cardiolite nuclear imaging was obtained in the horizontal long, vertical long, and short axis views. The patient underwent pharmacologic (Regadenoson) evaluation with a peak heart rate of 90 beats per minute (64 % percent predicted maximal heart rate) and a peak blood pressure of 130/62 mmHg. The patient was injected with 34.1 millicuries of technetium 99m Cardiolite and subsequently stress SPECT Cardiolite nuclear imaging was obtained in the horizontal long, vertical long, and short axis views. A gated Cardiolite study at peak stress was obtained. Interpretation: Rest and stress SPECT Cardiolite nuclear imaging status post realignment, normalization, and attenuation correction demonstrate relative uniform tracer uptake and myocardial perfusion appearing within normal limits. There is end systolic thickening and brightening. The gated Cardiolite study demonstrates myocardial thickening and inward wall motion. The reported LVEF is 91 %. Impression: 1. Rest and stress SPECT Cardiolite nuclear imaging demonstrate relative uniform tracer uptake and myocardial perfusion appearing within normal limits. 2. The gated Cardiolite study reports an LVEF of 91 %. This note was generated with Revivioation software. It may contain incorrect words, spelling, and punctuation that were not noted in checking the note before signing. 03/26/18 3053 <Electronically signed by Rubin Arriaga MD> Date Rubin Arriaga MD CC: Olga Hurst MD; Daphnie Kline Date Dictated: 11/30/18 1430 Date Transcribed: 03/26/181429 Manager Therapy: PM Signed URGENT CARE VISIT Observed: 03/15/2018 Status: F Source: [place] REPORT 11:52 AM [facility] REPOSITORY [facility] [address] [place] [address] OFFICE VISIT Date of Service: 03/15/18 MR#: [id number] Acct: [id number] Name: BA SENIOR Rep #: [id number] : 1935 Provider: Sal SOTELO Age/Sex: 83/F [place] [facility] Status: Signed Intake Vital Signs03/15/18 Height 5 ft 1 in Intake Visit Reasons: LEFT BIG TOE/ INGROWN Chief Complaint: LGT erythema, tender Allergies amoxicillin [Amoxicillin] Allergy (Verified 03/15/18 11:40) Swelling cephalexin Allergy (Verified 03/15/18 11:40) Rash clindamycin Allergy (Verified 03/15/18 11:40) Hives codeine Allergy (Verified 03/15/18 11:40) Upset Stomach cyclobenzaprine HCl [From Flexeril] Allergy (Verified 03/15/18 11:40) Swelling diclofenac sodium [From Voltaren] Allergy (Verified 03/15/18 11:40) Swelling dicyclomine Allergy (Verified 03/15/18 11:40) Swelling hydroxyzine HCl [From Atarax] Allergy (Verified 03/15/18 11:40) Swelling ketoprofen [From Oruvail] Allergy (Verified 03/15/18 11:40) Swelling prednisone Allergy (Verified 03/15/18 11:40) Hives pseudoephedrine HCl [From Sudafed] Allergy (Verified 03/15/18 11:40) Other sulfabenzamide Allergy (Verified 03/15/18 11:40) Anaphylaxis tramadol Allergy (Verified 03/15/18 11:40) Unknown Medications Aspirin [Aspirin, Baby] 81 mg PO DAILY@0800 11/10/13 [History Confirmed 03/15/18] Calcium Citrate/Vitamin D3 [Calcium Citrate-Vit D3 Caplet] 1 ea PO PRN PRN 11/10/13 [History Confirmed 03/15/18] Hydrochlorothiazide 25 mg PO DAILY 11/10/13 [History Confirmed 03/15/18] Lisinopril [Zestril] 10 mg PO DAILY 11/10/13 [History Confirmed 03/15/18] atorvastatin 20 mg tablet PO 30 Days #30 tab 03/15/18 [History Confirmed 03/15/18] doxycycline monohydrate 100 mg capsule 100 mg PO BID #20 cap 03/15/18 [Rx Confirmed 03/15/18] estradiol 0.01% (0.1 mg/gram) vaginal cream VAGINAL 30 Days #42 g 03/15/18 [History Confirmed 03/15/18] polyethylene glycol 3350 17 gram/dose oral powder PO g 03/15/18 [History Confirmed 03/15/18] PFSH Medical History Arthritis (Acute) Back pain (Acute) Diarrhea (Acute) Fatigue (Acute) Hemorrhoids (Acute) Incontinence (Acute) Limb weakness (Acute) SOB (shortness of breath) (Acute) Severe headache (Acute) Shoulder pain (Acute) HTN (hypertension) (Chronic) Surgical History History of brain surgery (Acute) Family History Other Cancer Heart disease Social History Smoking Status: Never smoker alcohol intake: never HPI HPI Chief Complaint: LGT erythema, tender Details: BA SENIOR, is a 83 F who presents to the office today for initial evaluation approximately 1 week history of progressively worsening medial left great toe erythema, swelling, tender. Patient notes unsure what caused the symptoms to begin, though she has stated she has been applying Neosporin ointment along the medial nail plate paronychial border and performing Epson salt soaks daily to the same. She has no complaints of fever, chills, sweats. She notes no loss of sensation strength or function to the site. He notes no other associated items no other alleviating or aggravating factors. ROS Const Constitutional: No other (ROS negative x10 other than as noted above) Exam Const General: cooperative, healthy appearing, no acute distress, comfortable Nutritional Appearance: average body habitus Orientation: alert, awake, oriented x3 HENMT Head: normal to inspection Ears: hearing grossly normal bilaterally, external ears normal Nose: external nose normal Eyes General: appearance normal, both eyes and all related structures Neck Neck: normal visual inspection, full ROM, no lymphadenopathy, no meningeal signs, supple Neck mass: No Thyroid: thyroid normal Lymphatic: no lymphadenopathy noted Chest Chest palpation AND inspection: normal inspection of the chest Resp Effort AND Inspection: normal respiratory effort, able to speak in complete sentences, symmetric chest movement, no cough Auscultation: Bilateral: Clear to Auscultation Cardio Palpation: normal PMI Rate: regular rate Rhythm: regular rhythm Heart Sounds: S1 normal, S2 normal, no gallops, no murmurs, no rubs Pulses: radial pulses present GI Inspection: normal to inspection Skin General: no rashes or lesions noted, erythema (LGT medial paronychial border with trace swelling) Neuro General: alert, awake, oriented x3, gait normal Cognition: normal cognition Speech: speech normal Gait: normal gait Motor: muscle tone normal throughout Sensory Exam: no sensory deficits noted Extrem General: normal to inspection Psych Appearance: grossly normal Mental Status: mental status grossly normal Mood: congruent mood Affect: normal affect Speech and Movement: speech and movement normal Attitude: cooperative Thought Process: normal Thought Content: normal Judgment: judgment good Assessment AND Plan Problems 1. Cellulitis of great toe, left L03.032 Plan Doxycycline as prescribed today. Continue Epsom salt soaks and Neosporin ointment applications as previously. Clear fluids, rest, Tylenol as needed for symptomatic relief. Follow-up with PCP in 3-5 days if symptoms not improved, sooner should symptoms worsen or any other concerns develop. Patient states acknowledging understanding all the above. This note was generated with deCarta dictation software. It may contain incorrect words, spelling, and punctuation that were not noted in checking the note before signing. Medications New: Coding Level of Care Code Off vis,est,level 3 Diagnoses Cellulitis of great toe, left L03.032 03/15/18 1152 <Electronically signed by Sal SOTELO> Date Sal SOTELO Cosigner Signature: Date (if applicable) CC: CARDIOLOGY VISIT Observed: 03/15/2018 Status: F Source: [place] REPORT 10:43 AM [facility] REPOSITORY [facility] [address] [place] [address] OFFICE VISIT Date of Service: 03/15/18 MR#: [id number] Acct: [id number] Name: BA SENIOR Rep #: [id number] : 1935 Provider: Daphnie Kline Age/Sex: 83/F [place] [facility] Status: Signed HPI HPI Details: BA SENIOR, is a 83 F who presents to the office today for a cardiovascular follow-up. She has a history of hypertension, hyperlipidemia and syncope. Pt sts that over the last few months she has noted chest pain, left sided, it does not last long. It is not brought on by anything in particular. It does radiate down her left arm. It is usually sharp and last 3-4 minutes. It is a few times a week. She does feel that sometimes she is SOB with exertion. She does feel that this is worse than previous. She does not have any palpitations. She does occasionally have positional dizziness. She does not have any near syncope/syncope. She does not have any edema. She does ambulate with a wheeled walker. Intake Vital Signs03/15/18 Height 5 ft 1 in 03/15/18 Weight: 180 lb 03/15/18 Body Mass Index (BMI) 34.0 03/15/18 Blood Pressure 118/74 03/15/18 Blood Pressure Location Lt brachial Intake Visit Reasons: 1 Y FU Manager Valuation Required: No Accompanied by: none Is patient in pain?: Yes (occasional chest pain) Allergies amoxicillin [Amoxicillin] Allergy (Verified 03/15/18 10:12) Swelling cephalexin Allergy (Verified 03/15/18 10:12) Rash codeine Allergy (Verified 03/15/18 10:12) Upset Stomach cyclobenzaprine HCl [From Flexeril] Allergy (Verified 03/15/18 10:12) Swelling diclofenac sodium [From Voltaren] Allergy (Verified 03/15/18 10:12) Swelling dicyclomine Allergy (Verified 03/15/18 10:12) Swelling hydroxyzine HCl [From Atarax] Allergy (Verified 03/15/18 10:12) Swelling ketoprofen [From Oruvail] Allergy (Verified 03/15/18 10:12) Swelling pseudoephedrine HCl [From Sudafed] Allergy (Verified 03/15/18 10:12) Other sulfabenzamide Allergy (Verified 03/15/18 10:12) Anaphylaxis Medications Aspirin [Aspirin, Baby] 81 mg PO DAILY@0800 11/10/13 [History Confirmed 03/15/18] Calcium Citrate/Vitamin D3 [Calcium Citrate-Vit D3 Caplet] 1 ea PO PRN PRN 11/10/13 [History Confirmed 03/15/18] Hydrochlorothiazide 25 mg PO DAILY 11/10/13 [History Confirmed 03/15/18] Lisinopril [Zestril] 10 mg PO DAILY 11/10/13 [History Confirmed 03/15/18] Docusate Sodium [Colace] 100 mg PO DAILY #20 cap 09/23/16 [Rx Confirmed 03/15/18] atorvastatin 20 mg tablet PO 30 Days #30 tab 03/15/18 [History Confirmed 03/15/18] estradiol 0.01% (0.1 mg/gram) vaginal cream VAGINAL 30 Days #42 g 03/15/18 [History Confirmed 03/15/18] PFSH Social History Smoking Status: Never smoker ROS Const Const: Negative for weakness, fatigue, fever(s) or headache(s) Eyes Eyes: Negative for blind spots, loss of peripheral vision or transient loss of vision ENT ENT: Positive for dizziness and balance problems; negative for headache(s), tinnitus or Nosebleed/epistaxis Cardio Palpitations: No Edema: None Muscle aches with walking: None Resp Respiratory: Positive for SOB with activity; negative for SOB at rest, SOB orthopnea\SOB lying down or Cough GI GI: Negative nausea, vomiting, heartburn or vomiting blood/hematemesis : Negative for hematuria Musc Musc: Positive for muscle aches/ myalgia, muscle weakness and balance problems Neuro Neuro: Positive for dizziness; negative for weakness, headache(s), near syncope, syncope, lightheadedness or orthostatic symptoms [place] Hematologic/Lymphatic: Negative for easy bleeding Endo Endo: Negative for fatigue Supplemental Info Stress test in 2016 was negative for ischemia. Echocardiogram in 2017 demonstrated an ejection fraction of 65%. Left atrium mildly enlarged, mild tricuspid insufficiency, mild pulmonic insufficiency, RVSP 26 mmHg. Holter monitor in 2017 demonstrated sinus rhythm with rare PACs, longest pause being 2.8 seconds. Patient was sleeping at that time. 30-day event monitor demonstrated sinus rhythm with no ectopy/dysrhythmia or symptoms noted. Carotid ultrasound in 2017 demonstrated mild stenosis bilaterally. Assessment AND Plan 1. Chest pressure R07.89 Plan Patient does have some atypical chest discomfort. Will obtain a pharmacologic nuclear stress test to further evaluate. If this is negative feel that it is likely related to musculoskeletal issues. Advised that she discuss this with her primary care doctor. Orders Orders: 2. Essential hypertension I10 Plan Adequately controlled on current medications. Will not make any adjustments. Orders Orders: 3. Pure hypercholesterolemia E78.00; E78.0 Plan These have been managed by her primary care doctor. She will continue with her current low-dose statin. Recent lipid profile demonstrates total cholesterol of 135, HDL 57, LDL 53. 4. Syncope, unspecified syncope type R55 Plan Patient has not had any further recurrence. We will continue to monitor. Plan Detail Other Orders Orders: Additional Comments Thank you for allowing us to participate in patient's plan of care, if you have any questions please do not hesitate to call. This note was generated using a voice recognition system and there may be incorrect words, spelling or punctuation errors that were not noted when reviewing the office note prior to saving. Coding Level of Care Code Off vis,est,level 4 Diagnoses Chest pressure R07.89 Essential hypertension I10 Hypertension type: essential hypertension Pure hypercholesterolemia E78.00; E78.0 Hyperlipidemia type: pure hypercholesterolemia Syncope, unspecified syncope type R55 Syncope type: unspecified Coding Level of Care Code Off vis,est,level 4 Diagnoses Chest pressure R07.89 Essential hypertension I10 Hypertension type: essential hypertension Pure hypercholesterolemia E78.00; E78.0 Hyperlipidemia type: pure hypercholesterolemia Syncope, unspecified syncope type R55 Syncope type: unspecified 03/15/18 1043 <Electronically signed by Daphnie SOTELO> Date Daphnie SOTELO Cosigner Signature: Date (if applicable) CC: Olga Hurst MD PROGRESS Observed: 01/13/2018 Status: COMPLETED Source: [place] 11:08 AM [facility] [place] REPOSITORY HNO ID: [id number] Author: Zulema Willams Service: (none) Author Type: Physician Type: Progress Notes Filed: 01/13/2018 11:33 AM Note Text: Ba Senior is a 82 year old female who presents for pessary maintenance. Pt reports this is the third UTI this month for her treated by PCP. Pt reports no problems emptying bladder pt denies vaginal discharge, bleeding, odor. 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 - Unspecified urinary incontinence Incontinence, stress/CYSTOCELE, RECTOCELE - Urge incontinence mild PAST SURGICAL HISTORY Procedure Laterality Date - APPENDECTOMY - BACK SURGERY HX 09/2016 - BX OF BREAST; INCISIONAL 2003 Bx of breast, incisional - KNEE SCOPE,DIAGNOSTIC 01-12-04 Arthroscopy, knee - LIGATE FALLOPIAN TUBE Tubal ligation - PAST SURGICAL HISTORY OF 03-03-2011 left-sided frontal craniotomy for excision of meningioma - TOTAL KNEE 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-19-04 Knee replacement, total left FAMILY HISTORY Problem Relation Age of Onset - Hypertension Mother - Heart Mother - Cancer Mother lung - Cancer Father LUNG - Heart Father - Heart Brother STROKE - Heart Sister - Diabetes Sister - Diabetes Paternal Aunt - Cancer Sister CERVIX Social History Marital status: Spouse name: Ajit Pulliamn Years of education: Number of children: 3 Occupational History Occupation Employer [employer] Retired Social History Main Topics Smoking status: Never Smoker Smokeless tobacco: Never Used Alcohol use: No Drug use: No Sexual activity: Not Currently Partners with: Male Current Outpatient Prescriptions: phenazopyridine (PYRIDIUM, GERIDIUM) 200 mg tablet mag hydrox/aluminum hyd/simeth (MAGLOX ORAL) Take by mouth. atorvastatin (LIPITOR) 40 mg tablet Take 1 tablet by mouth daily at bedtime. For cholesterol. hydrochlorothiazide (HYDRODIURIL, ESIDRIX) 25 mg tablet Take 1 tablet by mouth once daily. lisinopril (ZESTRIL, PRINIVIL) 10 mg tablet Take 1 tablet by mouth once daily. Aspirin 81 mg Tab Take 81 mg by mouth. nystatin (NYSTOP) powder Apply 1 application to affected area four times daily. oxyCODONE IR (ROXICODONE) 5 mg immediate release tablet tiZANidine (ZANAFLEX) 4 mg tablet Take 1 tablet by mouth every 8 hours as needed (muscle spasms). (Patient not taking: Reported on 08/26/2017 ) Calcium Citrate-Vitamin D3 (CITRACAL + D) 315-250 mg-unit Tab Take as directed No current facility-administered medications for this visit. Allergies As of Date: 01/13/2018 Allergen Noted Reaction AMOXICILLIN 04/16/2005 Swelling ATARAX [HYDROXYZINE HCL] 04/16/2005 Swelling CEPHALEXIN 07/15/2012 Rash CODEINE 06/25/2007 GI Upset DICICLOMINE [OTHER] 04/16/2005 Swelling FLEXERIL [CYCLOBENZAPRINE HCL] 04/16/2005 Swelling ORUVAIL [KETOPROFEN] 04/16/2005 Swelling PREDNISONE 09/11/2014 Rash SUDAFED [PSEUDOEPHEDRINE] 08/24/2009 Intolerance SULFABENZAMIDE 04/16/2005 Anaphylaxis TRAMADOL 12/31/2014 Intolerance VOLTAREN [DICLOFENAC] 04/16/2005 Swelling Fully Assessed 01/13/2018 REVIEW OF SYSTEMS Abdomen: no pain Bladder: + frequency and dysuria .. Expanded ROS: GENERAL: Negative for fever Allergies and current medication updated:Yes EXAM: BP 116/58 Wt 174 lb (78.9kg) GENERAL: pleasant, female in no apparent distress HEENT: Normocephalic, atraumatic and no lesions NECK: full range of motion DERMATOLOGY: Normal, without lesions, non-icteric and non-hirsute PELVIC: external genitalia normal, normal Bartholin's glands, urethra, Clear [place]'s glands, no vulvar lesions, no cervical lesions, physiologic discharge present, normal appearing perineal body and perianal region, atrophic changes - ring with support PESSARY removed without difficulty, cleaned and replaced - pt tolerated well NEURO: alert and oriented x3,exam grossly non-focal EXTREMITIES: normal ASSESSMENT AND PLAN: Encounter Diagnosis ICD-10-CM 1. Pessary maintenance Z46.89 2. Female genital prolapse, unspecified type N81.9 3. Recurrent UTI N39.0 4. Vag E cream for urethra use- may decrease UTIs- proper application reviewed 5. RTO 3 mo Zulema Lemus MD CNOV Observed: 01/13/2018 Status: COMPLETED Source: [place] 11:00 AM [facility] REPOSITORY Office Visit (WOOB) NATEBA BARRIENTOS ([id number]) 1935 F Date Time Provider Department 01/13/18 11:00 AM [facility] During your visit today, we recorded the following information about you: Blood pressure Weight 116/58 78.9 kg Zulema Lemus MD 01/13/2018 11:33 AM Signed Kendellmartir Senior is a 82 year old female who presents for pessary maintenance. Pt reports this is the third UTI this month for her treated by PCP. Pt reports no problems emptying bladder pt denies vaginal discharge, bleeding, odor. 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 - Unspecified urinary incontinence Incontinence, stress/CYSTOCELE, RECTOCELE - Urge incontinence mild PAST SURGICAL HISTORY Procedure Laterality Date - APPENDECTOMY - BACK SURGERY HX 09/2016 - BX OF BREAST; INCISIONAL 2003 Bx of breast, incisional - KNEE SCOPE,DIAGNOSTIC 01-12-04 Arthroscopy, knee - LIGATE FALLOPIAN TUBE Tubal ligation - PAST SURGICAL HISTORY OF 03-03-2011 left-sided frontal craniotomy for excision of meningioma - TOTAL KNEE 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-19-04 Knee replacement, total left FAMILY HISTORY Problem Relation Age of Onset - Hypertension Mother - Heart Mother - Cancer Mother lung - Cancer Father LUNG - Heart Father - Heart Brother STROKE - Heart Sister - Diabetes Sister - Diabetes Paternal Aunt - Cancer Sister CERVIX Social History Marital status: Spouse name: Ajit Henley Years of education: Number of children: 3 Occupational History Occupation Employer Comment [employer] Retired Social History Main Topics Smoking status: Never Smoker Smokeless tobacco: Never Used Alcohol use: No Drug use: No Sexual activity: Not Currently Partners with: Male Current Outpatient Prescriptions: phenazopyridine (PYRIDIUM, GERIDIUM) 200 mg tablet mag hydrox/aluminum hyd/simeth (MAGLOX ORAL) Take by mouth. atorvastatin (LIPITOR) 40 mg tablet Take 1 tablet by mouth daily at bedtime. For cholesterol. hydrochlorothiazide (HYDRODIURIL, ESIDRIX) 25 mg tablet Take 1 tablet by mouth once daily. lisinopril (ZESTRIL, PRINIVIL) 10 mg tablet Take 1 tablet by mouth once daily. Aspirin 81 mg Tab Take 81 mg by mouth. nystatin (NYSTOP) powder Apply 1 application to affected area four times daily. oxyCODONE IR (ROXICODONE) 5 mg immediate release tablet tiZANidine (ZANAFLEX) 4 mg tablet Take 1 tablet by mouth every 8 hours as needed (muscle spasms). (Patient not taking: Reported on 08/26/2017 ) Calcium Citrate-Vitamin D3 (CITRACAL + D) 315-250 mg-unit Tab Take as directed No current facility-administered medications for this visit. Allergies As of Date: 01/13/2018 Allergen Noted Reaction AMOXICILLIN 04/16/2005 Swelling ATARAX [HYDROXYZINE HCL] 04/16/2005 Swelling CEPHALEXIN 07/15/2012 Rash CODEINE 06/25/2007 GI Upset DICICLOMINE [OTHER] 04/16/2005 Swelling FLEXERIL [CYCLOBENZAPRINE HCL] 04/16/2005 Swelling ORUVAIL [KETOPROFEN] 04/16/2005 Swelling PREDNISONE 09/11/2014 Rash SUDAFED [PSEUDOEPHEDRINE] 08/24/2009 Intolerance SULFABENZAMIDE 04/16/2005 Anaphylaxis TRAMADOL 12/31/2014 Intolerance VOLTAREN [DICLOFENAC] 04/16/2005 Swelling Fully Assessed 01/13/2018 REVIEW OF SYSTEMS Abdomen: no pain Bladder: + frequency and dysuria .. Expanded ROS: GENERAL: Negative for fever Allergies and current medication updated:Yes EXAM: BP 116/58 Wt 174 lb (78.9kg) GENERAL: pleasant, female in no apparent distress HEENT: Normocephalic, atraumatic and no lesions NECK: full range of motion DERMATOLOGY: Normal, without lesions, non-icteric and non-hirsute PELVIC: external genitalia normal, normal Bartholin's glands, urethra, [place]'s glands, no vulvar lesions, no cervical lesions, physiologic discharge present, normal appearing perineal body and perianal region, atrophic changes - ring with support PESSARY removed without difficulty, cleaned and replaced - pt tolerated well NEURO: alert and oriented x3,exam grossly non-focal EXTREMITIES: normal ASSESSMENT AND PLAN: Encounter Diagnosis ICD-10-CM 1. Pessary maintenance Z46.89 2. Female genital prolapse, unspecified type N81.9 3. Recurrent UTI N39.0 4. Vag E cream for urethra use- may decrease UTIs- proper application reviewed 5. RTO 3 mo Zulema Lemus MD Referring Provider: ZULEMA DUEÑAS [[id number]] Allergies As of Date: 01/13/2018 Noted Allergy Reaction AMOXICILLIN 04/16/2005 7 - Swelling ATARAX (HYDROXYZINE HCL) 04/16/2005 7 - Swelling CEPHALEXIN 07/15/2012 2 - Rash CODEINE 06/25/2007 8 - GI Upset Comments: nausea DICICLOMINE [Other] 04/16/2005 7 - Swelling FLEXERIL (CYCLOBENZAPRINE HCL) 04/16/2005 7 - Swelling ORUVAIL (KETOPROFEN) 04/16/2005 7 - Swelling PREDNISONE 09/11/2014 2 - Rash Comments: rash SUDAFED (PSEUDOEPHEDRINE) 08/24/2009 5 - Intolerance Comments: Palpitations, heart racing SULFABENZAMIDE 04/16/2005 10 - Anaphylaxis TRAMADOL 12/31/2014 5 - Intolerance 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 VOLTAREN (DICLOFENAC) 04/16/2005 7 - Swelling Date Reviewed: 01/13/2018 Reviewed by: Kendy Dozier Ma - Fully Assessed Reason for Visit: Pessary [[id number]] Primary Visit Diagnosis:Pessary maintenance [Z46.89] Other Visit Diagnoses:Female genital prolapse, unspecified type [N81.9] Recurrent UTI [N39.0] Order(s):estradiol (ESTRACE) 0.01 % (0.1 mg/gram) vaginal creamApply fingertip amount nightly x 4 weeks then use 2-3 times per weekDisp: 1 TubeRfl: 0 Prescriptions as of 01/13/2018 Sig: PHENAZOPYRIDINE 200 MG TABLET MAGLOX ORAL Take by mouth. ATORVASTATIN 40 MG TABLET Take 1 tablet by mouth daily * HYDROCHLOROTHIAZIDE 25 MG TAB* Take 1 tablet by mouth once d* LISINOPRIL 10 MG TABLET Take 1 tablet by mouth once d* ASPIRIN 81 MG TABLET Take 81 mg by mouth. ESTRADIOL 0.01% (0.1 MG/GRAM)* Apply fingertip amount nightl* NYSTATIN 100,000 UNIT/GRAM TO* Apply 1 application to affect* OXYCODONE 5 MG TABLET TIZANIDINE 4 MG TABLET Take 1 tablet by mouth every * Patient not taking: Reported on 08/26/2017 CALCIUM CITRATE-VITAMIN D3 31* Take as directed Problem List As Of Date 01/13/2018 Noted Resolved PAIN IN JOINT, LOWER LEG [M25.569] INVALID FOR*11/19/2007 Other and Unspecified Hyperlipidemia [E78.5] INVALID FOR* Priority: A Essential Hypertension, Benign [I10] INVALID FOR* Priority: A More... OSTEOPENIA [M89.9, M94.9] INVALID FOR* Priority: B More... 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 Routine gynecological examination [Z01.419] INVALID FOR*09/23/2011 Class: Chronic More... Symptomatic menopausal or female climacteric st*INVALID FOR*09/23/2011 Female Stress Incontinence [N39.3] INVALID FOR* Urgency of urination [R39.15] INVALID FOR*09/23/2011 Nocturia [R35.1] INVALID FOR*09/23/2011 Postmenopausal Atrophic Vaginitis [N95.2] INVALID FOR* Screening for malignant neoplasm of the cervix *INVALID FOR*09/23/2011 Breast screening, unspecified [Z12.31] INVALID FOR*09/23/2011 Cystocele, Midline [N81.11] INVALID FOR* Solitary cyst of breast [N60.09] INVALID FOR*09/23/2011 Impaired fasting glucose [R73.01] INVALID FOR* Priority: A Hypertension [I10] 09/23/2011 Benign meningioma [D32.9] Preop exam for internal medicine [Z01.818] 09/23/2011 Seizures [R56.9] Uterovaginal prolapse, incomplete [N81.2] INVALID FOR* Dysuria [R30.0] INVALID FOR* Recurrent UTI [N39.0] INVALID FOR* Frequency of urination [R35.0] INVALID FOR* Left flank pain [R10.9] INVALID FOR* Degenerative disc disease [VDA3514] INVALID FOR* Cervical strain [S16.1XXA] INVALID FOR* Prescriptions ordered this encounter Disp Refills Start End ESTRADIOL 0.01% (0.1 MG/GRAM) VAGINA* 1 Tu* 0 01/13/2018 Sig: Apply fingertip amount nightly x 4 weeks then use 2- 3 times per week Encounter Status:Closed by ZULEMA WILLAMS MD on 01/13/18 L/S SPINE MIN 4 Observed: 01/13/2018 Status: F Source: [place] VIEWS 9:04 AM [facility] REPOSITORY [facility] Imaging Services [address] [place] [address] L/S Spine Min 4 Views MR#: [id number] Acct: [id number] Name: BA SENIOR Rep #: [id number] : 1935 F 82 From: Fahad Chavez DO PCP: Olga Hurst MD Status: REG CLI Study: L/S Spine Min 4 Views Date of Exam: 01/13/18 Exam# [id number] Ordering Dr: Ron Dyer MD STUDY: X-RAY - LUMBAR SPINE REASON FOR EXAM: Female, 82 years old. Back pain TECHNIQUE: 5 view(s) of the lumbar spine were obtained. COMPARISON: 01/30/2017 FINDINGS: Normal lumbar lordosis. There is no substantial scoliosis. There is a normal alignment of the vertebrae. There is multilevel endplate spondylosis of the lumbar vertebrae. There is multi-level degenerative disc disease with multi-level disc space narrowing. There appears to be kyphoplasty cement noted at the L3 level with retained needle components in the posterior aspect. Stable from prior exam There is atherosclerotic calcification of the abdominal aorta without a demonstrated aneurysm. RAD/L/S Spine Min 4 Views IMPRESSION: As above Electronically Signed: Fahad Chavez DO at 8:33 EDT Tel , Service support , CC: Olga Hurst MD; Giacomo Dyer MD Manager Therapy: Signed THORACIC SPINE 2 Observed: 01/13/2018 Status: F Source: [place] VIEWS 9:04 AM [facility] REPOSITORY [facility] Imaging Services [address] [place] [address] Thoracic Spine 2 Views MR#: [id number] Acct: [id number] Name: BA SENIOR Rep #: [id number] : 1935 F 82 From: Israel Denton MD PCP: Olga Hurst MD Status: REG CLI Study: Thoracic Spine 2 Views Date of Exam: 01/13/18 Exam# [id number] Ordering Dr: Ron Dyer MD STUDY: X-RAY - THORACIC SPINE REASON FOR EXAM: Female, 82 years old. Back pain. TECHNIQUE: AP and lateral view(s) of the thoracic spine were obtained. COMPARISON: None. FINDINGS: There is an increase in the normal thoracic kyphosis. There is no substantial scoliosis. There is demineralization of the thoracic spine with endplate spondylosis. There is multilevel disc space narrowing of the thoracic spine. Atherosclerotic calcification of the aortic arch. RAD/Thoracic Spine 2 Views IMPRESSION: Multilevel spondylosis and degenerative changes. Electronically Signed: Israel Denton MD at 9:52 EDT Tel [phone], Service support , CC: Olga Hurst MD; Giacomo Dyer MD Manager Therapy: Signed HIP, UNI W/ PELVIS Observed: 01/13/2018 Status: F Source: [place] 2-3 VIEWS 9:04 AM [facility] REPOSITORY [facility] Imaging Services [address] [place] [address] HIP, UNI W/ Pelvis 2-3 Views MR#: [id number] Acct: [id number] Name: BA SENIOR Rep #: [id number] : 1935 F 82 From: Gregg Jama MD PCP: Natali DONAHUE,Olga Status: REG CLI Study: HIP, UNI W/ Pelvis 2-3 Views Date of Exam: 01/13/18 Exam# [id number] Ordering Dr: Ron Dyer MD STUDY: X-RAY - PELVIS AND RIGHT HIP REASON FOR EXAM: Right hip pain. TECHNIQUE: Radiological exam, hip, unilateral, with pelvis when performed; 2 or 3 views. COMPARISON: Radiographs 09/22/2017. FINDINGS: There is a soft tissue calcification overlying the medial right femoral head/neck junction unchanged since prior study. There are small calcifications adjacent to the ischial tuberosities bilaterally unchanged since the prior study. There is evidence of vertebroplasty at L3. Normal bilateral iliac wings, sacroiliac joints and visualized sacrum. Normal bilateral superior and inferior pubic rami. Normal pubic symphysis. Normal bilateral ischial tuberosities. Normal visualized femoral head. Normal acetabulum. Normal hip joint. RAD/HIP, UNI W/ Pelvis 2-3 Views IMPRESSION: Soft tissue calcifications without interval change. Otherwise, unremarkable x-ray examination of the right hip. Electronically Signed: Gregg Jama MD at 10:44 EDT Tel , Service support , CC: Olga Hurst MD; Giacomo Dyer MD Manager Therapy: Signed URINALYSIS, COMPLETE Collected: 01/13/2018 Status: F Source: [place] 12:00 AM [facility] REPOSITORY Order Comment: How was Urine Obtained? CLEAN CATCH TYPE CODE TESTS RESULT OUT OF RANGE REFERENCE UNITS LAB L400.3000 Yellow COLOR Normal Yellow LAB L400.3050 Clear Normal CLARITY Sl. Cloudy LAB L400.3200 Normal mg/dl Normal GLUCOSE, UR Normal LAB L400.3300 Negative mg/dL Normal BILIRUBIN URINE Negative LAB L400.3400 Negative mg/dl Normal KETONE UR Negative LAB L400.3465 1.002-1.030 Normal SP.GR. DIPSTX 1.010 LAB L400.3550 5.0 - 8.0 pH UR Normal 8.0 LAB L400.3600 Negative mg/dl High PROT 30 DIPSTX LAB L400.3700 Normal mg/dl Normal UROBILI Normal LAB L400.3750 Negative Normal NITRITE UR Negative LAB L400.3780 Negative /ul High OCCULT BLOOD-UR 250 LAB L400.3800 Negative /ul High LEUK ESTERASE 500 LAB L400.4050 0-5 /hpf WBC Normal 25-50 SEEN LAB L400.4100 0-5 /hpf Normal RBC-UA 25-50 SEEN LAB L400.4150 5-10 /hpf SQUAM Normal EPI 0-5 SEEN LAB L400.4300 None Seen /hpf 1+ Normal BACTERIA LAB L400.4350 <or=2+ /hpf 0 Normal MUCUS, URINE SEEN Performed By: #### L400.0001 #### [facility] [address] [place], [place], [id number] Observed: 01/13/2018 Status: F Source: [place] CULTURE, URINE 12:00 AM [facility] REPOSITORY Urine Culture There are no CLSI standards for interpretation of this Drug/Organism combination. ORGANISM 1: Corynebacterium striatum Aurora Count 80,000-100,000 Performed By: #### M100.0650 #### [facility] [address] [place], [address] PT D/C SUMMARY (1) Observed: 12/07/2017 Status: F Source: [place] 1:30 PM [facility] REPOSITORY [facility] [address] [place] [address] Fax [facility] DISCHARGE SUMMARY MR#: [id number] Acct: [id number] Name: BA SENIOR Rep #: [id number] : 1935 82 From: Rani STANFORDT Referring Dr.: Olga Hurst MD Status: REG RCR Insurance: [employer] [facility] SELF PAY INSURANCE HP - PT D/C Summary It has been my pleasure to treat BA SENIOR under orders from Olga Hurst MD, for the diagnosis of Right hip and back pain for a total of 14 visit(s). Discharge Date: Please see the following information for a summary of their discharge status. - Subjective Subjective: Patient reports that she feels this round of therapy was really helpful. She is back to 75% of where she wants to be. No pain per say just achy. - Pain LOW BACK Pain Intensity (Out of 10): 0 RIGHT HIP Pain Intensity (Out of 10): 0 - Overall Improvement % Improvement: 80 - Objective Objective/Function: Posture: Static sitting with slouched posture and increase posterior pelvic tilt; Static standing; maintains upright posture with equal weight shifting. HR/TR: able with UE A support. SLS: WS- and will pick the opposite foot up off the floor with UE A. Sit to Stand: able with good technique with 2 UE A. ROM: Lumbar: flexion decreased by 50%, extn to neutral, SB and Rot: decreased by 50% bilateral. Hip/Knee/Ankle: WFL Gait: antalgic- uses rollerator but is moving better than initial evaluation. She has a good teri with decreased stance on the Right LE. Balance: Static and dynamic sitting: good, Static Standing: fair. Dynamic Standing: fair minus. Strength: Core: fair, Right Hip: 4/5 throughout Knee: 4+/5, Ankle: 4+/5, Left:Hip: 4/5, Knee: 4+/5, Ankle: 4+/5. Flex: HS: severe, Gastroc: mod. Special Test: slump: positive - Goals Goal 1:: Patient will be I with HEP and progression Goal Progress: Goal Met Goal 2:: Patient will ambulate >300 feet with LRD and normalized gait pattern Goal Progress: Progressing Goal 3:: Patient will maintain proper posture t/o tx session to demo increased core s/s Goal Progress: Progressing Goal 4:: Patient will report 5/10 pain for 1 week at its worst Goal Progress: Goal Met - Plan Plan: Discharge to I HEP - D/C Information If there are questions or concerns regarding this patient's physical therapy, please feel free to call me at [phone]. Thank you for the referral of this patient. Sincerely, Rani Mares <Electronically signed by Rani Mares DPT> 12/07/17 1330 CC: Olga Hurst MD; Leonid Jones MD ELR Signed CBC W/DIFF, AUTOMATED Collected: 11/30/2017 Status: F Source: [place] 11:40 AM [facility] REPOSITORY TYPE CODE TESTS RESULT OUT OF RANGE REFERENCE UNITS LAB L100.1000 4.4-11.0 K/mm3 Normal WBC 7.4 LAB L100.1200 4.2-5.4 M/mm3 Normal RBC 4.30 LAB L100.1300 12.0-15.0 g/dl Normal HGB 13.5 LAB L100.1400 37-47 % Normal HCT 38.9 LAB L100.1500 81-99 fL Normal MCV 90.5 LAB L100.1600 27.0-32.0 pg Normal MCH 31.4 LAB L100.1700 32-36 g/gl Normal MCHC 34.7 LAB L100.1810 11.6-14.6 % Normal RDW CV 13.2 LAB L100.1820 35.1-43.9 fl Normal RDW SD 43.4 LAB L100.1900 150-450 K/mm3 Normal PLT 208 LAB L100.2000 6.2-12.0 fl Normal MPV 9.9 LAB L100.2100 47-70 % Normal NEUT% 60.6 LAB L100.2200 19-41 % Normal LY% 24.4 LAB L100.2300 0-10 % High MONO% 12.9 LAB L100.2400 0-5 % Normal EO% 1.5 LAB L100.2500 0-1 % Normal BASO% 0.5 LAB L100.2550 0.0-0.9 % Normal IM GRAN % 0.100 Result Comment: IG% - Immature Granulocytes (promyelocytes, myelocytes and metamyelocytes) > 1% indicates that a LEFT SHIFT is Present. LAB L100.2620 2.0-7.7 X10 3/uL Normal Absolute Neut 4.5 LAB L100.2720 0.83-4.51 X10 3/ul Normal Absolute Lymph 1.80 Performed By: #### L100.0100 #### [facility] [address] [place], [address] COMPREHENSIVE METABOLIC Collected: 11/30/2017 Status: F Source: [place] 11:40 AM [facility] REPOSITORY TYPE CODE TESTS RESULT OUT OF RANGE REFERENCE UNITS LAB L501.0100 74-106 mg/dL Normal GLU 84 Result Comment: Please note revised GLUCOSE reference range effective 2017. LAB L501.1000 7-18 mg/dL High BUN 20 LAB L501.1100 0.55-1.02 mg/dL Normal CREAT,SERUM 0.71 Result Comment: The validity of the calculated GFR AND GFRAA in patients over 70 years has not been determined. Clinical correlation is essential. LAB L501.1110 >60 mL/min Normal EST GFR 84 Result Comment: Non- GFR Calc LAB L501.1115 >60 mL/min Normal EST GFR - AA 102 Result Comment: GFR Calc LAB L501.1300 10-20 RATIO High BUN/CRE 28.2 LAB L501.1500 6.4-8.2 g/dL T Normal PROT 7.1 LAB L501.1800 3.2-5.0 g/dL Normal ALB 3.2 LAB L501.1950 2.2-4.2 g/dL Normal GLOB 3.9 LAB L501.2000 0.9-2.4 RATIO Low A/G 0.8 LAB L501.2200 8.5-10.1 mg/dL CA Normal 9.2 LAB L501.4100 15-37 U/L Normal AST 15 LAB L501.4305 45-117 U/L Normal ALK P 64 LAB L501.4405 13-56 U/L Normal ALT 18 LAB L501.4600 0.20-1.00 mg/dL T Normal BILI 0.60 LAB L501.5300 136-145 mmol/L NA Normal 136 LAB L501.5600 3.5-5.1 mmol/L K Normal 3.5 LAB L501.5900 98-107 mmol/L CL Normal 101 LAB L501.6100 21.0-32.0 mmol/L Normal CO2 28.0 LAB L501.6200 5-15 Normal GAP 7 Performed By: #### L500.4050, L501.9520 #### [facility] [address] [place], [address] THYROID STIM HORMONE Collected: 11/30/2017 Status: F Source: [place] (TSH) 11:40 AM [facility] REPOSITORY TYPE CODE TESTS RESULT OUT OF RANGE REFERENCE UNITS LAB 01.9520 0.358-3.74 uIU/mL Normal TSH 0.88 Performed By: #### L500.4050, L501.9520 #### [facility] [address] [place], [address] RE-EVALUATION - PT (1) Observed: 11/23/2017 Status: F Source: [place] 10:59 AM [facility] REPOSITORY [facility] [address] [place] [address]. [address] [place] [address] Fax REEVALUATION / MEDICARE RECERTIFICATION PHYSICAL THERAPY MR#: [id number] Acct: [id number] Name: BA SENIOR Rep #: [id number] : 1935 82 From: Rani Mares DPT Referring Dr.: Olga Hurst MD Status: REG RCR Insurance: [facility] SELF PAY INSURANCE Olga Hurst MD, It has been my pleasure to treat BA SENIOR over the last 10 visits for Right hip and back pain. Please see the progress note below for an update on the physical therapy plan of care! Subjective: Patient reports that she is doing great- she is 80% better. she feels she is getting stronger just isn't quite there yet- would like to do an additional 2 weeks. She has a little more pain today secondary to being on her feet all weekend. Objective/Function: Posture: Static sitting with slouched posture and increase posterior pelvic tilt; Static standing; maintains upright posture with equal weight shifting. HR/TR: able with UE A support. SLS: WS but unable to SLS and reports pain in the right hip. Sit to Stand: able with good technique with 2 UE A. ROM: Lumbar: flexion decreased by 50%, extn to neutral, SB and Rot: decreased by 50% bilateral. Hip/Knee/Ankle: WFL Gait: antalgic- uses rollerator but is moving better than initial evaluation. She has a good teri with decreased stance on the Right LE. Balance: Static and dynamic sitting: good, Static Standing: fair. Dynamic Standing: fair minus. Strength: Core: fair, Right Hip: 4/5 throughout Knee: 4+/5, Ankle: 4+/5, Left:Hip: 4/5, Knee: 4+/5, Ankle: 4+/5. Flex: HS: severe, Gastroc: mod. Special Test: slump: positive Plan Plan: Continue 2x a week for 2 weeks Goals Goal 1:: Patient will be I with HEP and progression Goal Time Frame: 4-6 Weeks Goal 2:: Patient will ambulate >300 feet with LRD and normalized gait pattern Goal Time Frame: 4-6 Weeks Goal 3:: Patient will maintain proper posture t/o tx session to demo increased core s/s Goal Time Frame: 4-6 Weeks Goal 4:: Patient will report 5/10 pain for 1 week at its worst Goal Time Frame: 4-6 Weeks Anticipated Interventions Patient/Client Instruction: Educate patient on: Benefits of Fitness Program For the Purpose of:: To improve ability to perform ADL's Therapeutic Exercise to Include: Strength training, Balance training, Body mechanics, Postural training, Flexibilty training, Gait and locomotor training, Dynamic Lumbar Stabilization For the Purpose of:: To improve muscle performance and motor function TENS: Yes Cryotherapy (ice pack, ice massage): Yes Thermo therapy (hot pack): Yes Ultrasound (thermal/non thermal): Yes For the Purpose of:: To decrease pain Please do not hesitate to contact me at [phone] by phone or if you have questions or concerns regarding this new plan of care! Sincerely, Rani Mares <Electronically signed by Rani Mares DPT> 11/23/17 1059 CC: Olga Hurst MD; Leonid Jones MD ELR Signed For Medicare only, by signing this I certify the plan of care. Physicians Signature Date PROGRESS Observed: 10/14/2017 Status: COMPLETED Source: [place] 1:59 PM [facility] REPOSITORY HNO ID: [id number] Author: Zulema Willams Service: (none) Author Type: Physician Type: Progress Notes Filed: 10/14/2017 3:09 PM Note Text: Ba Senior is a 82 year old who presents today for pessary insertion/cleaning. She wears a size 4 ring with support pessary. She returns today with no complaints. She has not had problems with the pessary. She has not had vaginal discharge and bleeding. . EXAM: pleasant, well developed, well nourished, in no apparent distress Pelvic: Bartholin's, urethra and Clear [place]'s glands were normal. The ring with support pessary was removed. Vaginal exam indicated no erythema, no ulcerations and vaginal discharge- large amt foul discharge . The pessary was cleaned a size 4 ring with support was inserted. The pessary was inserted, patient tolerated the procedure well and the device is comfortable. FLAGYL GIVEN FOR Vaginal discharge Diflucan for groin yeast NYSTOP powder for use under breasts/folds etc. RTO 3 mo for pessary check Zulema Lemus MD CNOV Observed: 10/14/2017 Status: COMPLETED Source: [place] 1:30 PM [facility] REPOSITORY Office Visit (WOOB) BA SENIOR ([id number]) 1935 F Date Time Provider Department 10/14/17 1:30 PM ZULEMA DUEÑAS During your visit today, we recorded the following information about you: Blood pressure Weight 108/54 78.5 kg Zulema Lemus MD 10/14/2017 3:09 PM Signed Ba Senior is a 82 year old who presents today for pessary insertion/cleaning. She wears a size 4 ring with support pessary. She returns today with no complaints. She has not had problems with the pessary. She has not had vaginal discharge and bleeding. . EXAM: pleasant, well developed, well nourished, in no apparent distress Pelvic: Bartholin's, urethra and Clear [place]'s glands were normal. The ring with support pessary was removed. Vaginal exam indicated no erythema, no ulcerations and vaginal discharge- large amt foul discharge . The pessary was cleaned a size 4 ring with support was inserted. The pessary was inserted, patient tolerated the procedure well and the device is comfortable. FLAGYL GIVEN FOR Vaginal discharge Diflucan for groin yeast NYSTOP powder for use under breasts/folds etc. RTO 3 mo for pessary check Zulema Lemus MD Referring Provider: SELF [[id number]] Allergies As of Date: 10/14/2017 Noted Allergy Reaction AMOXICILLIN 04/16/2005 7 - Swelling ATARAX (HYDROXYZINE HCL) 04/16/2005 7 - Swelling CEPHALEXIN 07/15/2012 2 - Rash CODEINE 06/25/2007 8 - GI Upset Comments: nausea DICICLOMINE [Other] 04/16/2005 7 - Swelling FLEXERIL (CYCLOBENZAPRINE HCL) 04/16/2005 7 - Swelling ORUVAIL (KETOPROFEN) 04/16/2005 7 - Swelling PREDNISONE 09/11/2014 2 - Rash Comments: rash SUDAFED (PSEUDOEPHEDRINE) 08/24/2009 5 - Intolerance Comments: Palpitations, heart racing SULFABENZAMIDE 04/16/2005 10 - Anaphylaxis TRAMADOL 12/31/2014 5 - Intolerance 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 VOLTAREN (DICLOFENAC) 04/16/2005 7 - Swelling Date Reviewed: 10/14/2017 Reviewed by: Maira Ellis Ma - Fully Assessed Reason for Visit: Pessary [345] Primary Visit Diagnosis:Pessary maintenance [Z46.89] Order(s):metroNIDAZOLE (FLAGYL) 500 mg tabletTake 1 tablet by mouth twice daily for 7 days.Disp: 14 tabletRfl: 0 fluconazole (DIFLUCAN) 150 mg tabletTake 1 tablet by mouth one time only for 1 dose.Disp: 1 tabletRfl: 0 nystatin (NYSTOP) powderApply 1 application to affected area four times daily.Disp: 1 BottleRfl: 2 Prescriptions as of 10/14/2017 Sig: MAGLOX ORAL Take by mouth. ATORVASTATIN 40 MG TABLET Take 1 tablet by mouth daily * HYDROCHLOROTHIAZIDE 25 MG TAB* Take 1 tablet by mouth once d* LISINOPRIL 10 MG TABLET Take 1 tablet by mouth once d* ASPIRIN 81 MG TABLET Take 81 mg by mouth. CALCIUM CITRATE-VITAMIN D3 31* Take as directed METRONIDAZOLE 500 MG TABLET Take 1 tablet by mouth twice * FLUCONAZOLE 150 MG TABLET Take 1 tablet by mouth one ti* NYSTATIN 100,000 UNIT/GRAM TO* Apply 1 application to affect* OXYCODONE 5 MG TABLET TIZANIDINE 4 MG TABLET Take 1 tablet by mouth every * Patient not taking: Reported on 08/26/2017 Problem List As Of Date 10/14/2017 Noted Resolved PAIN IN JOINT, LOWER LEG [M25.569] INVALID FOR*11/19/2007 Other and Unspecified Hyperlipidemia [E78.5] INVALID FOR* Priority: A Essential Hypertension, Benign [I10] INVALID FOR* Priority: A More... OSTEOPENIA [M89.9, M94.9] INVALID FOR* Priority: B More... 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 Routine gynecological examination [Z01.419] INVALID FOR*09/23/2011 Class: Chronic More... Symptomatic menopausal or female climacteric st*INVALID FOR*09/23/2011 Female Stress Incontinence [N39.3] INVALID FOR* Urgency of urination [R39.15] INVALID FOR*09/23/2011 Nocturia [R35.1] INVALID FOR*09/23/2011 Postmenopausal Atrophic Vaginitis [N95.2] INVALID FOR* Screening for malignant neoplasm of the cervix *INVALID FOR*09/23/2011 Breast screening, unspecified [Z12.31] INVALID FOR*09/23/2011 Cystocele, Midline [N81.11] INVALID FOR* Solitary cyst of breast [N60.09] INVALID FOR*09/23/2011 Impaired fasting glucose [R73.01] INVALID FOR* Priority: A Hypertension [I10] 09/23/2011 Benign meningioma [D32.0] Preop exam for internal medicine [Z01.818] 09/23/2011 Seizures [R56.9] Uterovaginal prolapse, incomplete [N81.2] INVALID FOR* Dysuria [R30.0] INVALID FOR* Recurrent UTI [N39.0] INVALID FOR* Frequency of urination [R35.0] INVALID FOR* Left flank pain [R10.9] INVALID FOR* Degenerative disc disease [JBO4456] INVALID FOR* Cervical strain [S16.1XXA] INVALID FOR* Prescriptions ordered this encounter Disp Refills Start End METRONIDAZOLE 500 MG TABLET 14 t* 0 10/14/2017 10/21/2017 Route: ORAL Sig: Take 1 tablet by mouth twice daily for 7 days. FLUCONAZOLE 150 MG TABLET 1 ta* 0 10/14/2017 10/14/2017 Route: ORAL Sig: Take 1 tablet by mouth one time only for 1 dose. NYSTATIN 100,000 UNIT/GRAM TOPICAL P* 1 Ehsan* 2 10/14/2017 Route: TOPICAL Sig: Apply 1 application to affected area four times daily. Disposition: Return in about 3 months (around 01/14/2018) for pessary check . Follow-up and Disposition History Recorded Encounter Status:Closed by ZULEMA WILLAMS MD on 10/14/17 INITAL EVALUATION (1) Observed: 10/09/2017 Status: F Source: [facility] - PT 8:10 AM [facility] REPOSITORY [facility] [address] [place], [place] [address] Fax REHABILITATION SERVICES INITIAL EVALUATION MR#: [id number] Acct: [id number] Name: BA SENIOR Rep #: [id number] : 1935 82 From: Rani Mares DPT Referring Dr.: Olga Hurst MD Status: REG RCR [facility] Patient's Visit Information BA SENIOR is a 82 year old F referred to Physical Therapy by Olga Hurst MD with a diagnosis of Right hip and back pain. Date of Evaluation: 10/09/17 Physical Therapist: Rani Mares - Visit Plan Frequency: 2x /Week Duration: 4 Weeks Plan: Focus on LE and core s/s - Subjective Subjective: Patient reports that her right hip was really bothering her and she went to see the MD who thinks the pain is coming from her back. Thursday she had an injection in her right hip. The injection has helped. She always hurts in the AM. Worst: 10/10 Agg: early in the AM, weather. Eases: Tylenol, pain manamgement, ice/heat and moving. Best: 2/10 Normally zach shooting pains that go to the ankle. N/T comes and goes- no difficulty with the left side. She has been walking a mile a day at [employer] and outside when its nice. Sleep: occasionally wakes her up but she sleeps better when tylenol before bed. X-ray was taken a few weeks ago. PMhx: HTN Meds: hydrocholosel, lysterel, baby asprin, statin.She lives with her sister in law who does all the driving. She lives in a 1 story home with 2 stairs to get into the back door. - Objective Posture: Static sitting with slouched posture and increase posterior pelvic tilt; Static standing; maintains upright posture but does weight shift to the left. HR/TR: able with UE A-reports pulling in the right LE. SLS: WS but unable to SLS and reports pain in the right hip. Sit to Stand: able with good technique with 2 UE A. ROM: Lumbar: flexion decreased by 50%, extn to neutral, SB and Rot: decreased by 50% bilateral. Hip/Knee/Ankle: WFL- reports discomfort with right hip ROM. Gait: antalgic- uses rollerator but is moving better than discharge from PT in February. She has a good teri with decreased stance on the Right LE. Balance: Static and dynamic sitting: good, Static Standing: fair. Dynamic Standing: fair minus. Strength: Core: poor, Right Hip: 4-/5 throughout Knee: 4/5, Ankle: 4/5, Left:Hip: 4/5, Knee: 4+/5, Ankle: 4+/5. Flex: HS: severe, Gastroc: mod. Special Test: slump: positive - Goals Goal 1:: Patient will be I with HEP and progression Goal Time Frame: 4-6 Weeks Goal 2:: Patient will ambulate >300 feet with LRD and normalized gait pattern Goal Time Frame: 4-6 Weeks Goal 3:: Patient will maintain proper posture t/o tx session to demo increased core s/s Goal Time Frame: 4-6 Weeks Goal 4:: Patient will report 5/10 pain for 1 week at its worst Goal Time Frame: 4-6 Weeks - Rehabilitation Potential Physical Therapy Diagnosis: Patient presents with hypomobility- she has decreased core s/s leading to poor posture and increased pain Rehabilitation Potential: Fair - Anticipated Interventions Patient/Client Instruction: Educate patient on: Benefits of Fitness Program For the Purpose of:: To improve ability to perform ADL's Therapeutic Exercise to Include: Strength training, Balance training, Body mechanics, Postural training, Flexibilty training, Gait and locomotor training, Dynamic Lumbar Stabilization For the Purpose of:: To improve muscle performance and motor function TENS: Yes Cryotherapy (ice pack, ice massage): Yes Thermo therapy (hot pack): Yes Ultrasound (thermal/non thermal): Yes For the Purpose of:: To decrease pain Thank you for the opportunity to evaluate your patient. For Medicare and Medicare HMO plans, please review the plan of care and approve it. It will need to be FAXED BACK to us at [phone] for Medicare purposes. Please let me know if there are questions or concerns regarding this plan of care. Physician Signature: Date: <Electronically signed by Rani Mares DPT> 10/09/17 0810 CC: Olga Hurst MD; Leonid Jones MD ELR Signed For Medicare only, by signing this I certify the plan of care. Physicians Signature Date HIP 2-3 VIEWS WITH Observed: 09/22/2017 Status: F Source: [place] 12:52 PM [facility] REPOSITORY [facility] Imaging Services [address] [place] [address] Hip 2-3 Views with Pelvis MR#: [id number] Acct: [id number] Name: BA SENIOR Rep #: [id number] : 1935 F 82 From: Gregg Jama MD PCP: Olga Hurst MD Status: REG CLI Study: Hip 2-3 Views with Pelvis Date of Exam: 09/22/17 Exam# [id number] Ordering Dr: Olga Hurst MD STUDY: X-RAY - PELVIS AND RIGHT HIP REASON FOR EXAM: Right hip pain. TECHNIQUE: Radiological exam, hip, unilateral, with pelvis when performed; 2 or 3 views. COMPARISON: Radiographs 07/16/2016 and 01/29/2015. FINDINGS: There is a soft tissue calcification overlying the medial right femoral head neck junction unchanged since the prior study. There are small calcifications adjacent to the ischial tuberosities bilaterally unchanged since the prior study. There is evidence of vertebroplasty at the L3 level. Normal bilateral iliac wings, sacroiliac joints and visualized sacrum. Normal bilateral superior and inferior pubic rami. Normal pubic symphysis. Normal bilateral ischial tuberosities. Normal visualized femoral head. Normal acetabulum. Normal hip joint. RAD/Hip 2-3 Views with Pelvis IMPRESSION: Soft tissue calcifications without interval change. Otherwise, unremarkable x-ray examination of the right hip. Electronically Signed: Gregg Jama MD at 9:57 EDT Tel , Service support , CC: Olga Hurst MD Manager Therapy: Signed CNOV Observed: 09/14/2017 Status: COMPLETED Source: [place] 1:50 PM [facility] REPOSITORY Office Visit (WOOB) PARRISHBA ([id number]) 1935 F Date Time Provider Department 09/14/17 1:50 PM ZULEMA DUEÑAS During your visit today, we recorded the following information about you: Blood pressure Weight 104/62 78.9 kg Zulema Lemus MD 09/14/2017 2:09 PM Signed Block Handler offered: Patient declines. Ba Senior is an 82 year old female who presents for pessary fitting for uterovaginal prolapse- pt reports some pressure but has more urinary incontinence issues as well. Pt would like trial of pessary. Pt offers no other concerns today. 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 - Unspecified urinary incontinence Incontinence, stress/CYSTOCELE, RECTOCELE - Urge incontinence mild PAST SURGICAL HISTORY Procedure Laterality Date - APPENDECTOMY - BACK SURGERY HX 09/2016 - BX OF BREAST; INCISIONAL 2003 Bx of breast, incisional - KNEE SCOPE,DIAGNOSTIC 01-12-04 Arthroscopy, knee - LIGATE FALLOPIAN TUBE Tubal ligation - PAST SURGICAL HISTORY OF 03-03-2011 left-sided frontal craniotomy for excision of meningioma - TOTAL KNEE 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-19-04 Knee replacement, total left FAMILY HISTORY Problem Relation Age of Onset - Hypertension Mother - Heart Mother - Cancer Mother lung - Cancer Father LUNG - Heart Father - Heart Brother STROKE - Heart Sister - Hypertension Sister - Diabetes Paternal Aunt - Cancer Sister CERVIX - Diabetes Sister - Cancer Sister Social History Marital status: Spouse name: jAit Henley Years of education: Number of children: 3 Occupational History Occupation Employer Comment [employer] Retired Social History Main Topics Smoking status: Never Smoker Smokeless tobacco: Never Used Alcohol use: No Drug use: No Sexual activity: Not Currently Partners with: Male Current Outpatient Prescriptions: oxyCODONE IR (ROXICODONE) 5 mg immediate release tablet atorvastatin (LIPITOR) 40 mg tablet Take 1 tablet by mouth daily at bedtime. For cholesterol. tiZANidine (ZANAFLEX) 4 mg tablet Take 1 tablet by mouth every 8 hours as needed (muscle spasms). (Patient not taking: Reported on 08/26/2017 ) hydrochlorothiazide (HYDRODIURIL, ESIDRIX) 25 mg tablet Take 1 tablet by mouth once daily. lisinopril (ZESTRIL, PRINIVIL) 10 mg tablet Take 1 tablet by mouth once daily. Aspirin 81 mg Tab Take 81 mg by mouth. Calcium Citrate-Vitamin D3 (CITRACAL + D) 315-250 mg-unit Tab Take as directed No current facility-administered medications for this visit. Allergies As of Date: 09/14/2017 Allergen Noted Reaction AMOXICILLIN 04/16/2005 Swelling ATARAX [HYDROXYZINE HCL] 04/16/2005 Swelling CEPHALEXIN 07/15/2012 Rash CODEINE 06/25/2007 GI Upset DICICLOMINE [OTHER] 04/16/2005 Swelling FLEXERIL [CYCLOBENZAPRINE HCL] 04/16/2005 Swelling ORUVAIL [KETOPROFEN] 04/16/2005 Swelling PREDNISONE 09/11/2014 Rash SUDAFED [PSEUDOEPHEDRINE] 08/24/2009 Intolerance SULFABENZAMIDE 04/16/2005 Anaphylaxis TRAMADOL 12/31/2014 Intolerance VOLTAREN [DICLOFENAC] 04/16/2005 Swelling Fully Assessed 09/14/2017 REVIEW OF SYSTEMS Abdomen: No abdominal pain, nausea, vomiting, diarrhea, or constipation. Bladder: mixed incontinence .. Expanded ROS: GENERAL: No weight loss, malaise or fevers Allergies and current medication updated:Yes EXAM: There were no vitals taken for this visit. GENERAL: pleasant, female in no apparent distress HEENT: Normocephalic and atraumatic NECK: full range of motion DERMATOLOGY: Normal, without lesions, non-icteric and non-hirsute PELVIC: external genitalia normal, normal Bartholin's glands, urethra, [place]'s glands, no vulvar lesions, normal appearing perineal body and perianal region BIMANUAL: uterus normal size, shape and consistency, no adnexal masses and non-tender NEURO: alert and oriented x3,exam grossly non-focal EXTREMITIES: normal PESSARY RING WITH SUPPORT #4 placed without difficulty and patient tolerated well. Pt was able to squat, sit and stand without difficulty. Voiding trial prior to dc today. Pt will follow up in 4 wks to ensure comfort and no complications. ASSESSMENT AND PLAN: 82yo with uterovaginal prolapse- here for pessary fitting 1) ring with support #4 placed without difficulty 2) RTO 4 wks or PRN 3) complication of pessary reviewed- including ulcerations, pain, bladder/bowel complications. Zulema Lemus MD Referring Provider: ZULEMA DUEÑAS [[id number]] Allergies As of Date: 09/14/2017 Noted Allergy Reaction AMOXICILLIN 04/16/2005 7 - Swelling ATARAX (HYDROXYZINE HCL) 04/16/2005 7 - Swelling CEPHALEXIN 07/15/2012 2 - Rash CODEINE 06/25/2007 8 - GI Upset Comments: nausea DICICLOMINE [Other] 04/16/2005 7 - Swelling FLEXERIL (CYCLOBENZAPRINE HCL) 04/16/2005 7 - Swelling ORUVAIL (KETOPROFEN) 04/16/2005 7 - Swelling PREDNISONE 09/11/2014 2 - Rash Comments: rash SUDAFED (PSEUDOEPHEDRINE) 08/24/2009 5 - Intolerance Comments: Palpitations, heart racing SULFABENZAMIDE 04/16/2005 10 - Anaphylaxis TRAMADOL 12/31/2014 5 - Intolerance 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 VOLTAREN (DICLOFENAC) 04/16/2005 7 - Swelling Date Reviewed: 09/14/2017 Reviewed by: Kendy Dozier Ma - Fully Assessed Reason for Visit: Pessary [345] Primary Visit Diagnosis:Female genital prolapse, unspecified type [N81.9] Other Visit Diagnosis:Encounter for fitting and adjustment of pessary [Z46.89] Prescriptions as of 09/14/2017 Sig: MAGLOX ORAL Take by mouth. OXYCODONE 5 MG TABLET ATORVASTATIN 40 MG TABLET Take 1 tablet by mouth daily * TIZANIDINE 4 MG TABLET Take 1 tablet by mouth every * Patient not taking: Reported on 08/26/2017 HYDROCHLOROTHIAZIDE 25 MG TAB* Take 1 tablet by mouth once d* LISINOPRIL 10 MG TABLET Take 1 tablet by mouth once d* ASPIRIN 81 MG TABLET Take 81 mg by mouth. CALCIUM CITRATE-VITAMIN D3 31* Take as directed Problem List As Of Date 09/14/2017 Noted Resolved PAIN IN JOINT, LOWER LEG [M25.569] INVALID FOR*11/19/2007 Other and Unspecified Hyperlipidemia [E78.5] INVALID FOR* Priority: A Essential Hypertension, Benign [I10] INVALID FOR* Priority: A More... OSTEOPENIA [M89.9, M94.9] INVALID FOR* Priority: B More... 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 Routine gynecological examination [Z01.419] INVALID FOR*09/23/2011 Class: Chronic More... Symptomatic menopausal or female climacteric st*INVALID FOR*09/23/2011 Female Stress Incontinence [N39.3] INVALID FOR* Urgency of urination [R39.15] INVALID FOR*09/23/2011 Nocturia [R35.1] INVALID FOR*09/23/2011 Postmenopausal Atrophic Vaginitis [N95.2] INVALID FOR* Screening for malignant neoplasm of the cervix *INVALID FOR*09/23/2011 Breast screening, unspecified [Z12.31] INVALID FOR*09/23/2011 Cystocele, Midline [N81.11] INVALID FOR* Solitary cyst of breast [N60.09] INVALID FOR*09/23/2011 Impaired fasting glucose [R73.01] INVALID FOR* Priority: A Hypertension [I10] 09/23/2011 Benign meningioma [D32.0] Preop exam for internal medicine [Z01.818] 09/23/2011 Seizures [R56.9] Uterovaginal prolapse, incomplete [N81.2] INVALID FOR* Dysuria [R30.0] INVALID FOR* Recurrent UTI [N39.0] INVALID FOR* Frequency of urination [R35.0] INVALID FOR* Left flank pain [R10.9] INVALID FOR* Degenerative disc disease [VVA2933] INVALID FOR* Cervical strain [S16.1XXA] INVALID FOR* Disposition: Return in about 4 weeks (around 10/12/2017) for pessary check . Follow-up and Disposition History Recorded Encounter Status:Closed by ZULEMA WILLAMS MD on 09/14/17 PROGRESS Observed: 09/14/2017 Status: COMPLETED Source: [facility] 1:44 PM [facility] [place] REPOSITORY HNO ID: [id number] Author: Zulema Willams Service: (none) Author Type: Physician Type: Progress Notes Filed: 09/14/2017 2:09 PM Note Text: Block Handler offered: Patient declines. Ba Senior is an 82 year old female who presents for pessary fitting for uterovaginal prolapse- pt reports some pressure but has more urinary incontinence issues as well. Pt would like trial of pessary. Pt offers no other concerns today. 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 - Unspecified urinary incontinence Incontinence, stress/CYSTOCELE, RECTOCELE - Urge incontinence mild PAST SURGICAL HISTORY Procedure Laterality Date - APPENDECTOMY - BACK SURGERY HX 09/2016 - BX OF BREAST; INCISIONAL 2004 Bx of breast, incisional - KNEE SCOPE,DIAGNOSTIC 01-12-04 Arthroscopy, knee - LIGATE FALLOPIAN TUBE Tubal ligation - PAST SURGICAL HISTORY OF 03-03-2011 left-sided frontal craniotomy for excision of meningioma - TOTAL KNEE 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-19-04 Knee replacement, total left FAMILY HISTORY Problem Relation Age of Onset - Hypertension Mother - Heart Mother - Cancer Mother lung - Cancer Father LUNG - Heart Father - Heart Brother STROKE - Heart Sister - Hypertension Sister - Diabetes Paternal Aunt - Cancer Sister CERVIX - Diabetes Sister - Cancer Sister Social History Marital status: Spouse name: Ajit Henley Years of education: Number of children: 3 Occupational History Occupation Employer Comment [employer] Ret[employer] Social History Main Topics Smoking status: Never Smoker Smokeless tobacco: Never Used Alcohol use: No Drug use: No Sexual activity: Not Currently Partners with: Male Current Outpatient Prescriptions: oxyCODONE IR (ROXICODONE) 5 mg immediate release tablet atorvastatin (LIPITOR) 40 mg tablet Take 1 tablet by mouth daily at bedtime. For cholesterol. tiZANidine (ZANAFLEX) 4 mg tablet Take 1 tablet by mouth every 8 hours as needed (muscle spasms). (Patient not taking: Reported on 08/26/2017 ) hydrochlorothiazide (HYDRODIURIL, ESIDRIX) 25 mg tablet Take 1 tablet by mouth once daily. lisinopril (ZESTRIL, PRINIVIL) 10 mg tablet Take 1 tablet by mouth once daily. Aspirin 81 mg Tab Take 81 mg by mouth. Calcium Citrate-Vitamin D3 (CITRACAL + D) 315-250 mg-unit Tab Take as directed No current facility-administered medications for this visit. Allergies As of Date: 09/14/2017 Allergen Noted Reaction AMOXICILLIN 04/16/2005 Swelling ATARAX [HYDROXYZINE HCL] 04/16/2005 Swelling CEPHALEXIN 07/15/2012 Rash CODEINE 06/25/2007 GI Upset DICICLOMINE [OTHER] 04/16/2005 Swelling FLEXERIL [CYCLOBENZAPRINE HCL] 04/16/2005 Swelling ORUVAIL [KETOPROFEN] 04/16/2005 Swelling PREDNISONE 09/11/2014 Rash SUDAFED [PSEUDOEPHEDRINE] 08/24/2009 Intolerance SULFABENZAMIDE 04/16/2005 Anaphylaxis TRAMADOL 12/31/2014 Intolerance VOLTAREN [DICLOFENAC] 04/16/2005 Swelling Fully Assessed 09/14/2017 REVIEW OF SYSTEMS Abdomen: No abdominal pain, nausea, vomiting, diarrhea, or constipation. Bladder: mixed incontinence .. Expanded ROS: GENERAL: No weight loss, malaise or fevers Allergies and current medication updated:Yes EXAM: There were no vitals taken for this visit. GENERAL: pleasant, female in no apparent distress HEENT: Normocephalic and atraumatic NECK: full range of motion DERMATOLOGY: Normal, without lesions, non-icteric and non-hirsute PELVIC: external genitalia normal, normal Bartholin's glands, urethra, Clear [place]'s glands, no vulvar lesions, normal appearing perineal body and perianal region BIMANUAL: uterus normal size, shape and consistency, no adnexal masses and non-tender NEURO: alert and oriented x3,exam grossly non-focal EXTREMITIES: normal PESSARY RING WITH SUPPORT #4 placed without difficulty and patient tolerated well. Pt was able to squat, sit and stand without difficulty. Voiding trial prior to dc today. Pt will follow up in 4 wks to ensure comfort and no complications. ASSESSMENT AND PLAN: 82yo with uterovaginal prolapse- here for pessary fitting 1) ring with support #4 placed without difficulty 2) RTO 4 wks or PRN 3) complication of pessary reviewed- including ulcerations, pain, bladder/bowel complications. Zulema Lemus MD FECAL OCCULT BLD Collected: 08/27/2017 Status: F Source: [facility] 7:30 AM [facility] REPOSITORY TYPE CODE TESTS RESULT OUT OF REFERENCE UNITS RANGE LAB IFO Negative Immuno Negative FOB Result Comment: This test was developed and its performance characteristics determined by [facility]'s Jeanmarie Roldan [facility] [place] [facility]). It has not been cleared or approved by the FDA. [facility] is regulated under CLIA as qualified to perform high-complexity testing. This test is used for clinical purposes. It should not be regarded as investigational or for research. Performed By: #### IFOBT #### [facility] [address] [place], [place] [address] CNCO Observed: 08/26/2017 Status: COMPLETED Source: [facility] 10:31 AM [facility] [place] REPOSITORY HNO ID: [id number] Author: Coordinator, Mammography Service: (none) Author Type: Physician Type: Letter Filed: 08/27/2017 11:31 PM Note Text: August 26, 2017 PID: [id number] Ba Senior [address] [place] [address] Dear Ms. Senior, We are pleased to inform you that the results of your recent breast imaging exam on 08/26/2017 are normal. Early detection of cancer is very important. We also understand recommendations regarding breast cancer screening are controversial. Please discuss with your primary care provider which strategy is best for you and whether a mammogram is right for you. Your imaging studies and report will be kept on file at [facility] as part of your permanent medical record and are available for your continuing care. Thank you for allowing us to help in meeting your health care needs. Sincerely, Dr. Valencia Interpreting Radiologist [facility] (Normal over 40) PROGRESS Observed: 08/26/2017 Status: COMPLETED Source: SECONDCREEK 9:17 AM [facility] REPOSITORY HNO ID: [id number] Author: Zulema Willams Service: (none) Author Type: Physician Type: Progress Notes Filed: 08/26/2017 10:02 AM Note Text: Block Handler offered: Patient declines. Ba Senior is a 82 year old who presents for her annual gynecologic exam without complaints. She does complain of mixed stress and urge incontinence. Lost in September - good support Postmenopausal: Yes since age 42's HRT use: No. Last Pap: 2010 normal HPV: 2010 N/A History of abnormal pap: No Last mammogram: 2018 normal History of abnormal mammogram: No Sexually active: No History of STDS: None Patient concerns for STD exposure: No. 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 - Unspecified urinary incontinence Incontinence, stress/CYSTOCELE, RECTOCELE - Urge incontinence mild PAST SURGICAL HISTORY Procedure Laterality Date - APPENDECTOMY - BACK SURGERY HX 09/2016 - BX OF BREAST; INCISIONAL 2004 Bx of breast, incisional - KNEE SCOPE,DIAGNOSTIC 01-12-04 Arthroscopy, knee - LIGATE FALLOPIAN TUBE Tubal ligation - PAST SURGICAL HISTORY OF 03-03-2011 left-sided frontal craniotomy for excision of meningioma - TOTAL KNEE 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-19-04 Knee replacement, total left FAMILY HISTORY Problem Relation Age of Onset - Hypertension Mother - Heart Mother - Cancer Mother lung - Cancer Father LUNG - Heart Father - Heart Brother STROKE - Heart Sister - Hypertension Sister - Diabetes Paternal Aunt - Cancer Sister CERVIX - Diabetes Sister - Cancer Sister SOCIAL HISTORY Social History Substance Use Topics - Smoking status: Never Smoker - Smokeless tobacco: Never Used - Alcohol use No REVIEW OF SYSTEMS Abdomen: No abdominal pain, nausea, vomiting, diarrhea, or constipation. No bloating, early satiety, indigestion, or increased flatulence. Bladder: No dysuria, gross hematuria, complains of urinary frequency, urinary urgency, nocturia, mixed incontince Breast: No breast lumps, nipple d/c, overlying skin changes, redness or skin retraction Allergies and current medication updated:Yes EXAM: Wt 178 lb (80.7kg) GENERAL: pleasant, female in no apparent distress HEENT: Normocephalic, atraumatic, mucus membranes moist and no lesions NECK: Supple, full range of motion, no adenopathy and thyroid normal DERMATOLOGY: Normal, without lesions, non-icteric and non-hirsute BREAST: soft, non-tender, symmetric, no dominant mass, normal nipple-areolar complex, no lymphadenopathy and no nipple discharge ABDOMEN: soft, non-tender and no masses PELVIC: external genitalia normal, normal Bartholin's glands, urethra, Clear [place]'s glands, no vulvar lesions, no cervical lesions, physiologic discharge present, normal appearing perineal body and perianal region, cystocele 2nd degree, rectocele 1st degree, cervical prolapse 1st degree BIMANUAL: uterus normal size, shape and consistency, no adnexal masses and non-tender RECTOVAGINAL: deferred. NEURO: alert and oriented x3,exam grossly non-focal EXTREMITIES: normal ASSESSMENT/PLAN: 1) Health maintenance: Pap/HPV screening no longer needed Mammogram ordered Mammogram up to date Nutrition, exercise and routine health maintenance exams reviewed. Calcium/Vitamin D supplementation information provided. Colon cancer screening: desires FOBT BMD: up to date 2) Follow up one year or sooner as needed Zulema Dueñas CNOV Observed: 08/26/2017 Status: COMPLETED Source: SECONDCREEK 9:00 AM [facility] [place] REPOSITORY Office Visit (WOOB) BA SENIOR ([id number]) 1935 F Date Time Provider Department 08/26/17 9:00 AM ZULEMA DUEÑAS WOMADELINE During your visit today, we recorded the following information about you: Blood pressure Weight 136/72 80.7 kg Zulema Lemus MD 08/26/2017 10:02 AM Signed Block Handler offered: Patient declines. Ba Kevinjoshdudley is a 82 year old who presents for her annual gynecologic exam without complaints. She does complain of mixed stress and urge incontinence. Lost in September - good support Postmenopausal: Yes since age 42's HRT use: No. Last Pap: 2010 normal HPV: 2010 N/A History of abnormal pap: No Last mammogram: 2017 normal History of abnormal mammogram: No Sexually active: No History of STDS: None Patient concerns for STD exposure: No. 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 - Unspecified urinary incontinence Incontinence, stress/CYSTOCELE, RECTOCELE - Urge incontinence mild PAST SURGICAL HISTORY Procedure Laterality Date - APPENDECTOMY - BACK SURGERY HX 09/2016 - BX OF BREAST; INCISIONAL 2004 Bx of breast, incisional - KNEE SCOPE,DIAGNOSTIC 01-12-04 Arthroscopy, knee - LIGATE FALLOPIAN TUBE Tubal ligation - PAST SURGICAL HISTORY OF 03-03-2011 left-sided frontal craniotomy for excision of meningioma - TOTAL KNEE 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-19-04 Knee replacement, total left FAMILY HISTORY Problem Relation Age of Onset - Hypertension Mother - Heart Mother - Cancer Mother lung - Cancer Father LUNG - Heart Father - Heart Brother STROKE - Heart Sister - Hypertension Sister - Diabetes Paternal Aunt - Cancer Sister CERVIX - Diabetes Sister - Cancer Sister SOCIAL HISTORY Social History Substance Use Topics - Smoking status: Never Smoker - Smokeless tobacco: Never Used - Alcohol use No REVIEW OF SYSTEMS Abdomen: No abdominal pain, nausea, vomiting, diarrhea, or constipation. No bloating, early satiety, indigestion, or increased flatulence. Bladder: No dysuria, gross hematuria, complains of urinary frequency, urinary urgency, nocturia, mixed incontince Breast: No breast lumps, nipple d/c, overlying skin changes, redness or skin retraction Allergies and current medication updated:Yes EXAM: Wt 178 lb (80.7kg) GENERAL: pleasant, female in no apparent distress HEENT: Normocephalic, atraumatic, mucus membranes moist and no lesions NECK: Supple, full range of motion, no adenopathy and thyroid normal DERMATOLOGY: Normal, without lesions, non-icteric and non-hirsute BREAST: soft, non-tender, symmetric, no dominant mass, normal nipple-areolar complex, no lymphadenopathy and no nipple discharge ABDOMEN: soft, non-tender and no masses PELVIC: external genitalia normal, normal Bartholin's glands, urethra, [place]'s glands, no vulvar lesions, no cervical lesions, physiologic discharge present, normal appearing perineal body and perianal region, cystocele 2nd degree, rectocele 1st degree, cervical prolapse 1st degree BIMANUAL: uterus normal size, shape and consistency, no adnexal masses and non-tender RECTOVAGINAL: deferred. NEURO: alert and oriented x3,exam grossly non-focal EXTREMITIES: normal ASSESSMENT/PLAN: 1) Health maintenance: Pap/HPV screening no longer needed Mammogram ordered Mammogram up to date Nutrition, exercise and routine health maintenance exams reviewed. Calcium/Vitamin D supplementation information provided. Colon cancer screening: desires FOBT BMD: up to date 2) Follow up one year or sooner as needed Zulema Dueñas Referring Provider: ZULEMA DUEÑAS [[id number]] Allergies As of Date: 08/26/2017 Noted Allergy Reaction AMOXICILLIN 04/16/2005 7 - Swelling ATARAX (HYDROXYZINE HCL) 04/16/2005 7 - Swelling CEPHALEXIN 07/15/2012 2 - Rash CODEINE 06/25/2007 8 - GI Upset Comments: nausea DICICLOMINE [Other] 04/16/2005 7 - Swelling FLEXERIL (CYCLOBENZAPRINE HCL) 04/16/2005 7 - Swelling ORUVAIL (KETOPROFEN) 04/16/2005 7 - Swelling PREDNISONE 09/11/2014 2 - Rash Comments: rash SUDAFED (PSEUDOEPHEDRINE) 08/24/2009 5 - Intolerance Comments: Palpitations, heart racing SULFABENZAMIDE 04/16/2005 10 - Anaphylaxis TRAMADOL 12/31/2014 5 - Intolerance 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 VOLTAREN (DICLOFENAC) 04/16/2005 7 - Swelling Date Reviewed: 08/26/2017 Reviewed by: Kendy Dozier Ma - Fully Assessed Reason for Visit: Yearly Exam [187] Primary Visit Diagnosis:Encounter for gynecological examination (general) (routine) without abnormal findings [Z01.419] Other Visit Diagnoses:Encounter for screening mammogram for breast cancer [Z12.31] Colon cancer screening [Z12.11] Order(s):ALEKSANDRA SCREENING [[id number]] Order #: [id number] FUTURE OCCULT BLD EXAM-DIAG [SQOB] Order #: [id number] Prescriptions as of 08/26/2017 Sig: ATORVASTATIN 40 MG TABLET Take 1 tablet by mouth daily * HYDROCHLOROTHIAZIDE 25 MG TAB* Take 1 tablet by mouth once d* LISINOPRIL 10 MG TABLET Take 1 tablet by mouth once d* ASPIRIN 81 MG TABLET Take 81 mg by mouth. CALCIUM CITRATE-VITAMIN D3 31* Take as directed OXYCODONE 5 MG TABLET TIZANIDINE 4 MG TABLET Take 1 tablet by mouth every * Patient not taking: Reported on 08/26/2017 Problem List As Of Date 08/26/2017 Noted Resolved PAIN IN JOINT, LOWER LEG [M25.569] INVALID FOR*11/19/2007 Other and Unspecified Hyperlipidemia [E78.5] INVALID FOR* Priority: A Essential Hypertension, Benign [I10] INVALID FOR* Priority: A More... OSTEOPENIA [M89.9, M94.9] INVALID FOR* Priority: B More... Lumbago [M54.5] INVALID FOR* Priority: B Osteoarth NOS-L/Leg [M17.10] INVALID FOR* Priority: B Routine general medical examination at a [facility]*INVALID FOR*09/23/2011 Class: Chronic More... Routine gynecological examination [Z01.419] INVALID FOR*09/23/2011 Class: Chronic More... Symptomatic menopausal or female climacteric st*INVALID FOR*09/23/2011 Female Stress Incontinence [N39.3] INVALID FOR* Urgency of urination [R39.15] INVALID FOR*09/23/2011 Nocturia [R35.1] INVALID FOR*09/23/2011 Postmenopausal Atrophic Vaginitis [N95.2] INVALID FOR* Screening for malignant neoplasm of the cervix *INVALID FOR*09/23/2011 Breast screening, unspecified [Z12.31] INVALID FOR*09/23/2011 Cystocele, Midline [N81.11] INVALID FOR* Solitary cyst of breast [N60.09] INVALID FOR*09/23/2011 Impaired fasting glucose [R73.01] INVALID FOR* Priority: A Hypertension [I10] 09/23/2011 Benign meningioma [D32.0] Preop exam for internal medicine [Z01.818] 09/23/2011 Seizures [R56.9] Uterovaginal prolapse, incomplete [N81.2] INVALID FOR* Dysuria [R30.0] INVALID FOR* Recurrent UTI [N39.0] INVALID FOR* Frequency of urination [R35.0] INVALID FOR* Left flank pain [R10.9] INVALID FOR* Degenerative disc disease [LII5040] INVALID FOR* Cervical strain [S16.1XXA] INVALID FOR* Disposition: Return in 3 weeks (on 09/16/2017) for pessary fitting. Follow-up and Disposition History Recorded Encounter Status:Closed by ZULEMA WILLAMS MD on 08/26/17 ALEKSANDRA SCREENING Observed: 08/26/2017 Status: F Source: SECONDCREEK 8:57 AM [facility] REPOSITORY * * *Final Report* * * DATE OF EXAM: Aug 26 2017 8:57AM KENZIE 0581 - [facility] SCREENING / PROCEDURE REASON: Encounter for screening mammogram for malignant neoplasm of breast * * * * Physician Interpretation * * * * RESULT: #[id number] - [facility] SCREENING BILATERAL DIGITAL SCREENING MAMMOGRAM WITH CAD: 08/26/2017 HISTORY: Encounter For Screening Mammogram For Malignant Neoplasm Of Breast\ Screening Mammogram - patient reports NO breast symptoms /priors available for comparison /SEE TECH NOTE. RESULT: TECHNIQUE: The study was acquired using full field digital technology and interpreted from soft copy. Current study was also evaluated with a Computer Aided Detection (CAD). Comparison is made to exams dated: 07/09/2016 mammogram, 05/07/2015 mammogram, and 05/04/2014 mammogram - [facility]. There are scattered fibroglandular elements in both breasts. There is a biopsy clip in the left breast. No significant masses, calcifications, or other findings are seen in either breast. There has been no significant interval change. IMPRESSION: NEGATIVE There is no mammographic evidence of malignancy.A 1 year screening mammogram is recommended. Karolina Valencia M.D., jr/claudine:08/26/2017 10:31:48 Telephone Triage Nurse: Marisela ACEVES(Marilee)(Alphonse), [facility] letter sent: Normal over 40 Mammogram BI-RADS: 1 Negative Manager Therapy: Claudine Transcribe Date/Time: Aug 26 2017 9:02A Dictated by: KAROLINA VALENCIA MD This examination was interpreted and the report reviewed and electronically signed by: KAROLINA VALENCIA MD on Aug 26 2017 10:31AM EST [id number] BASIC METABOLIC Collected: 06/02/2017 Status: F Source: [place] PROFILE (BMP) 10:41 AM [facility] REPOSITORY Order Comment: Order Date: 06/02/17 Order Info: 0667-1 - BMP Order Info: 27560-1 - LIPID Order Info: 1920-8 - AST Order Info: 1742-6 - ALT TYPE CODE TESTS RESULT OUT OF RANGE REFERENCE UNITS LAB L501.0100 74-106 mg/dL Normal GLU 98 LAB L501.1000 7-18 mg/dL High BUN 25 LAB L501.1100 0.55-1.02 mg/dL Normal 0.74 CREAT,SERUM Result Comment: The validity of the calculated GFR AND GFRAA in patients over 70 years has not been determined. Clinical correlation is essential. LAB L501.1110 >60 mL/min Normal EST GFR 80 Result Comment: Non- GFR Calc LAB L501.1115 >60 mL/min Normal EST GFR - AA 97 Result Comment: GFR Calc LAB L501.1300 10-20 RATIO High BUN/CRE 33.7 LAB L501.2200 8.5-10.1 mg/dL CA Normal 9.4 LAB L501.5300 136-145 mmol/L NA Normal 139 LAB L501.5600 3.5-5.1 mmol/L K Normal 3.7 LAB L501.5900 98-107 mmol/L CL Normal 105 LAB L501.6100 21.0-32.0 mmol/L Normal CO2 26.0 LAB L501.6200 5-15 Normal GAP 8 Performed By: #### L500.2500, L500.4100, L501.4100, L501.4405 #### [facility] [address] [place], [address] LIPID PROFILE Collected: 06/02/2017 Status: F Source: [place] 10:41 AM [facility] REPOSITORY Order Comment: Order Date: 06/02/17 Order Info: 0667-1 - BMP Order Info: 48656-1 - LIPID Order Info: 1920-8 - AST Order Info: 1742-6 - ALT TYPE CODE TESTS RESULT OUT OF RANGE REFERENCE UNITS LAB L501.4900 200 mg/dL Normal CHOL 135 Result Comment: <200 mg/dL Desirable 200-240 mg/dL Borderline >240 mg/dL High Risk LAB L501.5000 mg/dL Normal TRIG 127 Result Comment: The drugs N-Acetylcysteine and Metamizole may falsely depress this assay. Serum Triglycerides Reference Interval Normal <150 mg/dL Borderline high 150 - 199 mg/dL High 200 - 499 mg/dL Very High > or = 500 mg/dL LAB L501.6400 mg/dL Normal HDL 57 Result Comment: The drugs N-Acetylcysteine and Metamizole may falsely depress this assay. Reference Range HDL <40 mg/dL Low HDL Cholesterol HDL >or= 60 mg/dL High HDL Cholesterol LAB L501.6500 0-130 mg/dL Normal LDL 53 LAB L501.6600 5-40 mg/dL Normal VLDL 25 Performed By: #### L500.2500, L500.4100, L501.4100, L501.4405 #### [facility] [address] [place], [address] AST(SGOT) Collected: 06/02/2017 Status: F Source: SARAHY 10:41 AM [facility] REPOSITORY Order Comment: Order Date: 06/02/17 Order Info: 0667-1 - BMP Order Info: 27819-7 - LIPID Order Info: 1919-11 - AST Order Info: 1741-09 - ALT TYPE CODE TESTS RESULT OUT OF RANGE REFERENCE UNITS LAB L501.4100 15-37 U/L Normal AST 19 Performed By: #### L500.2500, L500.4100, L501.4100, L501.4405 #### [facility] [address] [place], [address] ALANINE AMINOTRANSFERAS Collected: 06/02/2017 Status: F Source: SARAHY (SGPT) 10:41 AM [facility] REPOSITORY Order Comment: Order Date: 06/02/17 Order Info: 0667-1 - BMP Order Info: 61623-9 - LIPID Order Info: 1919-11 - AST Order Info: 1741-09 - ALT TYPE CODE TESTS RESULT OUT OF RANGE REFERENCE UNITS LAB L501.4405 13-56 U/L Normal ALT 20 Result Comment: Please note revised ALT reference range effective 2017. Performed By: #### L500.2500, L500.4100, L501.4100, L501.4405 #### [facility] [address] [place], [address] ALLERGIES ALLERGIES DATE TYPE / CODE NAME / CODE REACTION SEVERITY SOURCE 03/15/20 Drug hydroxyzine Swelling Unknown [place] 18 Allergy/309562696 HCl/[id number]([facility] (SNOMED CT) ) Hospital Repository 03/15/20 Drug cyclobenzaprine Swelling Unknown [place] 18 Allergy/627820592 HCl/Q280614439([facility] (SNOMED [facility]) ) Hospital Repository 03/15/20 Drug pseudoephedrine Other Unknown [place] 18 Allergy/751188903 HCl/T923989201([facility] (SNOMED [facility]) ) Hospital Repository 03/15/20 Drug diclofenac Swelling Unknown [place] 18 Allergy/802786235 sodium/V387193016(R [facility] (SNOMED CT) XNORM) Hospital Repository 03/15/20 Drug codeine/N807209851( Upset Stomach Unknown [place] 18 Allergy/510260537 RX[facility]) [facility] Rep[facility] 03/15/20 Drug prednisone/F7537261 Hives Unknown [place] 18 Allergy/356725324 64(RXNORM) [facility] (SNOM[facility] Hospital Repository 03/15/20 Drug ketoprofen/Q9371890 Swelling Unknown [place] 18 Allergy/961898795 94(RXNORM) [facility] ([facility] Repository 03/15/20 Drug cephalexin/W3451440 Rash Unknown [place] 18 Allergy/235307486 16(RXNORM) [facility] ([facility] Repository 03/15/20 Drug clindamycin/G322044 Hives Unknown [place] 18 Allergy/097584050 794(RXNORM) [facility] (SN[facility] Hospital Repository 03/15/20 Drug sulfabenzamide/F006 Anaphylaxis Unknown [place] 18 Allergy/631641212 780919(RXNORM) [facility] (SNOM[facility] Hospital Repository 03/15/20 Drug amoxicillin/S928460 Swelling Unknown [place] 18 Allergy/825547895 675(RXNORM) [facility] (SNOM[facility] Hospital Repository 03/15/20 Drug tramadol/W293962961 Unknown Unknown [place] 18 Allergy/287185640 (RXNORM) [facility] (SN[facility] Hospital Repository 03/15/20 Drug dicyclomine/F607913 Swelling Unknown [place] 18 Allergy/054416231 711(RXNORM) [facility] (SN[facility] Hospital Repository 01/01/20 DRUG TRAMADOL INTOLERANCE [place] [facility] INGREDI/316639248 [facility] Main (SNOMED CT) [place] Repository 09/12/19 DRUG PREDNISONE RASH [place] 15 INGREDI/276133462 Clinic Main (SNOMED CT) [place] Repository 07/16/19 DRUG CEPHALEXIN RASH [place] 13 INGREDI/236175965 Clinic Main (SNOMED CT) [place] Repository 08/25/19 DRUG PSEUDOEPHEDRINE INTOLERANCE [place] [facility] INGREDI/873945419 Clinic Main (SNOMED CT) [place] Repository 06/25/19 DRUG CODEINE GI UPSET [place] 08 INGREDI/597727801 Clinic Main (SNOMED CT) [place] Repository 04/16/20 DRUG AMOXICILLIN SWELLING [place] 05 INGREDI/398918270 Clinic Main (SNOMED CT) [place] Repository 04/16/20 DRUG HYDROXYZINE HCL SWELLING [place] 05 INGREDI/805362825 Clinic Main (SNOMED CT) [place] Repository 04/16/20 Miscellaneous OTHER SWELLING [place] 05 Allergy/542673417 Clinic Main (SNOMED CT) [place] Repository 04/16/20 DRUG CYCLOBENZAPRINE HCL SWELLING [place] 05 INGREDI/636208989 Clinic Main (SNOMED CT) [place] Repository 04/16/20 DRUG KETOPROFEN SWELLING [place] 05 INGREDI/025774050 Clinic Main (SNOMED CT) [place] Repository 04/16/20 DRUG SULFABENZAMIDE ANAPHYLAXIS [place] 05 INGREDI/170685028 Clinic Main (SNOMED CT) [place] Repository 04/16/20 DRUG DICLOFENAC SWELLING [place] 05 INGREDI/233509419 Clinic Main (SNOMED CT) [place] Repository ENCOUNTERS ENCOUNTERS ADMIT/DISCHARGE ACCOUNT ADMITTING ENCOUNTER LOCATION SOURCE NUMBER [facility] 04/13/2018 [id number] [facility] ing:[facility] Repository 04/09/2018 [id number] [facility] ing:PT Repository 04/09/2018/04/13/[id number] Main [place] Repository 04/07/2018/04/08/20 [id number] Ambulatory [address] Main [place] Repository 03/30/2018 [id number] [facility] ing:MTRAD Repository 03/26/2018 [id number] [facility] ing:[facility] Repository 03/15/2018/03/15/20 [id number] Ambulatory BMSBuilding:B [place] 18 [facility] Repository 03/15/2018 [id number] Ambulatory BMSBuilding:B [place] [facility] Repository 03/15/2018/03/15/20 [id number] Ambulatory BMSBuilding:B [place] 18 [facility] Repository 01/13/2018/01/15/20 [id number] Ambulatory [address] Repository 01/13/2018 [id number] Ambulatory [facility] ing:[facility]SPEC Repository 12/07/2017/12/08/19 [id number] Ambulatory [address] ing:PT Repository 11/30/2017 [id number] [facility] ing:MFPLAB Repository 10/14/2017/10/17/19 [id number] Ambulatory [address] Repository 09/22/2017 [id number] Ambulatory [facility] ing:MTRAD Repository 09/14/2017/09/17/19 [id number] Ambulatory [address] Repository 08/27/2017 [id number] Ambulatory [facility] Repository 08/26/2017/09/01/19 [id number] Ambulatory [address] Repository 08/26/2017/08/27/19 [id number] Ambulatory [address] Repository 06/02/2017 [id number] [facility] ing:MFPLAB Repository PAYERS PAYERS ENCOUNTER GUARANTOR PAYER SUBSCRIBER SOURCE 04/13/2018 ORA A Primary Insurance:AETNA ORA A [place] [id number] [facility] COUNTYPolicy Number: HALFHILLDOB: [facility] MEBGPWNCEffectfillmore [facility] [id number], [place] Date:3668-33-43ZR BOX Repository [address]Ace: [phone] [place] [facility] [phone] (AQ) [phone]: 04/13/2018 Secondary NOT GIVENUNK [place] Insurance:SELF PAY Community INSURANCEPolicy Number: Hospital Effective Repository Date:2018-04-13 04/09/2018 ORA A Primary Insurance:AETNA ORA A [place] [id number] MCRPolicy Number: HALFHILLDOB: Community TAL MEBGPWNCEffective [id number], [place] Date:4917-38-78BF BOX Repository [address]Mxg: [phone] [facility] [place] [phone] () [phone]: 04/09/2018 Secondary NOT GIVENUNK [place] Insurance:SELF PAY Community INSURANCEPolicy Number: Hospital Effective Repository Date:2018-03-30 03/30/2018 ORA A Primary Insurance:AETNA ORA A [place] [id number] MCRPolicy Number: HALFHILLDOB: Community TAL BGPWNCEffective [id number] [place] Date:0723-35-71EY BOX Repository [address]Qpi: [phone], [place] [phone] () [phone]: 03/30/2018 Secondary NOT GIVENUNK [place] Insurance:SELF PAY Community INSURANCEPolicy Number: Hospital Effective Repository Date:2018-03-30 03/26/2018 ORA A Primary Insurance:AETNA ORA A [place] [id number] MCRPolicy Number: HALFHILLDOB: Community TAL MEBGPWNCEffective [id number] [place] [facility] [place] Date:4569-95-73QD BOX Repository [address]Iyd: [phone], [place] [phone] () [phone]: 03/26/2018 Secondary NOT GIVENUNK [place] Insurance:SELF PAY Community INSURANCEPolicy Number: Hospital Effective Repository Date:2018-03-15 03/15/2018 ORA A Primary Insurance:AETNA ORA A [place] [id number] MCRPolicy Number: HALFHILLDOB: Community TAL MEBGPWNCEffective [id number] [place] [facility] [place] Date:2678-81-56AJ BOX Repository [address]Rfs: [phone] [place] [phone] (HP) [phone]: 03/15/2018 Secondary NOT GIVENUNK Sarahy Insurance:SELF PAY Community INSURANCEPolicy Number: Hospital Effective Repository Date:2018-03-15 03/15/2018 Ora A Primary Insurance:AETNA Ora A [place] [id number] MCRPolicy Number: [place]DOB: Community Tal MEBGPWNCEffective [id number] [place] Date:0251-84-46VR BOX Repository [address]Zhz: [phone] [place] [phone] (HP) [phone]: 03/15/2018 Secondary NOT GIVENUNK Sarayh Insurance:SELF PAY Community INSURANCEPolicy Number: Hospital Effective Repository Date:2017-04-10 03/15/2018 ORA A Primary Insurance:AETNA ORA A Sarahy [id number] MCRPolicy Number: [place]DOB: Community TAL MEBGPWNCEffective [id number] [facility] [place] Date:8652-72-37WB BOX Repository [address]Exc: [phone] [place] [phone] (HP) [phone]: 03/15/2018 Secondary NOT GIVENUNK Sarahy Insurance:SELF PAY Community INSURANCEPolicy Number: Hospital Effective Repository Date:2018-03-15 01/13/2018 Ora A Primary Insurance:AETNA Ora A Sarahy [id number] MCRPolicy Number: [place]DOB: Community Tal MEBGPWNCEffective [id number] [place] Date:7467-07-35ZE BOX Repository [address]Ufz: [phone] [place] [phone] (HP) [phone]: 01/13/2018 Secondary NOT GIVENUNK Sarahy Insurance:SELF PAY Community INSURANCEPolicy Number: Hospital Effective Repository Date:2018-01-13 12/07/2017 Ora A Primary Insurance:AETNA Ora A Sarahy [id number] MCRPolicy Number: [place]DOB: Community [facility] HospitalPWNCEffective [id number] [facility], [place] Date:9555-39-53LQ BOX Repository [address]Rdg: [phone] [place] [phone] (HP) [phone]: 12/07/2017 Secondary NOT GIVENUNK Sarahy Insurance:SELF PAY Community INSURANCEPolicy Number: Hospital Effective Repository Date:2017-10-06 11/30/2017 Ora A Primary Insurance:AETNA Ora A Sarahy [id number] MCRPolicy Number: [place]DOB: Community [facility] [id number] River Health, [place] Date:1762-43-56QR BOX Repository [address]Lek: [phone] [place] [phone] (HP) [phone]: 11/30/2017 Secondary NOT GIVENUNK Sarahy Insurance:SELF PAY Community INSURANCEPolicy Number: Hospital Effective Repository Date:2017-11-30 09/22/2017 Ora A Primary Insurance:AETNA Ora A [place] [id number] MCRPolicy Number: [place]DOB: Community [facility]WGAEffective [id number] River Health, [place] Date:5712-50-75QN BOX Repository [address]Xjp: [phone] [place] [phone] () [phone]: 09/22/2017 Secondary NOT GIVENUNK Sarahy Insurance:SELF PAY Community INSURANCEPolicy Number: Hospital Effective Repository Date:2017-09-22 06/02/2017 Ora A Primary Insurance:AETNA Ora A Sarahy [id number] MCRPolicy Number: [place]DOB: Community Tal MEBGPWNCEffective [id number] [place] Date:1199-55-89NK BOX Repository [address]Qmz: [phone] [facility] [phone] (FV) [phone]: 06/02/2017 Secondary NOT GIVENUNK [place] Insurance:SELF PAY Community INSURANCEPolicy Number: Hospital Effective Repository Date:2017-06-02
== END ==
PROVIDERS: Family Provider Family Medicine; PCP Family Medicine; Referring Provider Physician Assistant Medical; Visit Provider Physician Assistant Medical
DX: R07.89 Other chest pain (principal); I10 Essential (primary) hypertension; E78.5 Hyperlipidemia, unspecified; M25.551 Pain in right hip
CPT/HCPCS: 73502; 78452; 93017; A9500; A4216; J2785

== ENCOUNTER → 2018-03-30 12:02 | Outpatient (CLI) | payer MEDICARE, SELFPAY ==
[2018-03-15 11:52] VITALS: BMI 34.0
--- NOTE | 2018-03-30 12:05 | RAD_ITS ---
STUDY: X-RAY - RIGHT KNEE REASON FOR EXAM: Female, 83 years old. Right knee pain. TECHNIQUE: 3 view(s) of the knee. COMPARISON: None. FINDINGS: Normal visualized distal femur. Normal visualized proximal tibia and fibula. Normal proximal tibiofibular articulation. There is mild degenerative arthrosis of the medial femorotibial compartment. Normal lateral femorotibial compartment. Normal patellofemoral articulation. The soft tissue structures are unremarkable. RAD/Knee 3 Views IMPRESSION: Degenerative arthrosis. Electronically Signed: Israel Denton MD at 10:22 EST Tel [phone], Service support ,
== END ==
PROVIDERS: Family Provider Family Medicine; PCP Family Medicine; Referring Provider Family Medicine; Visit Provider Family Medicine
DX: M25.561 Pain in right knee (principal)
CPT/HCPCS: 73562

== ENCOUNTER 2018-04-09 16:00 | Outpatient (RCR) | payer MEDICARE, SELFPAY ==
[2018-03-15 11:52] VITALS: BMI 34.0
--- NOTE | 2018-04-07 09:56 | HP.PTEVAL_ITS ---
Patient's Visit Information BA GUADARRAMA is a 83 year old F referred to Physical Therapy by lOga Hurst MD with a diagnosis of RIGHT HIP PAIN. Date of Evaluation: 04/07/18 Physical Therapist: Juan Manuel Culver PT, - Visit Plan Frequency: 2x /Week Duration: 6WEEKS Plan: [facility] for POSTURAL EX'S GRADED DLS,ROM HIP KNEE - Subjective Findings: This 83 y/o female presents to physical therapy with right hip pain. P yuri has had hip and knee pain for over a year. Patient had h/o kyphoplasty in September 2016. Patient also has had prior PT for back and hip with [facility]. Patient has used rollator many about one year for for balance. Patient pain located in right gluteus region and right knee. Patient symptoms walking and standing 2 mins,unable to lift . Patient has difficulty with steps.Symptoms better with rest and sitting. Symptoms affects ADL'S and function/QOL. BOWEL/BLADDER -. Denies pararhesia/tingling. Pateinmt has difficulty walking in community. When patient seen DR x-rays done. Patient symptoms affect sleeping. Patient plans to seen pain management DR Jones. SOCAIL: ,sister in law lives with patient. VOCATION: - Pain Right Buttocks Pain Intensity (Out of 10): 10 Pain Intensity Range: 10 Right Knee Pain Intensity (Out of 10): 10 Pain Intensity Range: 10 - Objective POSTURE: mild thoracic kyphosis ,hips knees flexed foward,foward posture. PALPATION: right knee tender grossly ,right gluteus. NEURO: denies pa rathesia/tingling,reflexes L3-4,L4-5,L5-S1 1/3. GAIT: mild foward posture reciprocal pattern slow cadnce decrease stance time right leg. AROM: hip 100 degrees,abd 40 degrees ,knee 120 degrees supine flexion. MMT: quads/hams 3+/5 right ,left 4-/5,hip flexion 3+/5 bilateral ankle 4/5. LUMBAR ROM: flexion mod pain ,severe extesnion pain right buttuck,right side glides mod pain to right glut. BALANCE: fair+ with rollator - Special Tests L/S Slump test left side: Negative L/S Slump test right side: Negative L/S Left Straight Leg Raise: Negative L/S Right Straight Leg Raise: Negative R Hip Scour: Negative R Hip Trendelenberg - Glut Medius: Negative R Hip Adriana - IT Band: Negative - Goals Goal 1:: Independant with [facility] program Goal Time Frame: 4-6 Weeks Goal 2:: Patient right hip posterior gluteus and knee pain by 40-% to improve gait Goal Time Frame: 4-6 Weeks Goal 3:: Patient to improve gait with rollator with community distances with less pain Goal Time Frame: 4-6 Weeks Goal 4:: Patient increase strength of BLE by 1/2 grade to improve function with gait . Goal Time Frame: 4-6 Weeks Goal 5:: Patient to improve LFES score by 10 points or greater to improve gait. Goal Time Frame: 4-6 Weeks - Rehabilitation Potential Physical Therapy Diagnosis: Patient was refeered to PT for right hip but pain located right gluteus with pain with lumbar ROM,eakness right leg ,scouring test - for hip ,symptoms worse with walking and standing thus needs rollator thus benifit from skilled PT with [facility] Rehabilitation Potential: Good - Anticipated Interventions Patient/Client Instruction: Educate patient on: Condition, Plan of Care For the Purpose of:: To decrease pain, To increase ROM, To improve muscle performance and motor function, To improve ability to perform ADL's, To increase tolerance to activity/condition/position, To improve ability of physical actions for home/community/work/leisure, To improve gait and locomotor functions, To improve health of tissue, To decrease soft tissue restriction, To increase flexibility/ROM, To assume or resume ADL's, To reduce risk of recurrence, To improve ability to perform tasks related to life management Therapeutic Exercise to Include: Strength training, Postural training, Flexibilty training, In an aquatic setting, Active ROM, Dynamic Lumbar Stabilization For the Purpose of:: To decrease pain, To increase ROM, To improve ability to perform ADL's, To increase tolerance to activity/condition/position, To improve ability of physical actions for home/community/work/leisure, To improve gait and locomotor functions, To improve health of tissue, To decrease soft tissue restriction, To improve safety with gait, To improve ability to perform tasks related to life management Thank you for the opportunity to evaluate your patient. For Medicare and Medicare HMO plans, please review the plan of care and approve it. It will need to be FAXED BACK to us at [phone] for Medicare purposes. For Medicare only, by signing this I certify the plan of care. Please let me know if there are questions or concerns regarding this plan of care. Physician Monty milton: Date:
--- NOTE | 2018-07-29 09:52 | HP.PT.NRP ---
HP - Discharge Summary (1) - Patient Information BA GUADARRAMA was seen in my office for initial evaluation on 04/07/18. The following Plan of Care was established for this patient: Initial Frequency: 2x /Week Initial Duration: 6WEEKS - Anticipated Interventions Patient/Client Instruction: Educate patient on: Condition, Plan of Care For the Purpose of:: To decrease pain, To increase ROM, To improve muscle performance and motor function, To improve ability to perform ADL's, To increase tolerance to activity/condition/position, To improve ability of physical actions for home/community/work/leisure, To improve gait and locomotor functions, To improve health of tissue, To decrease soft tissue restriction, To increase flexibility/ROM, To assume or resume ADL's, To reduce risk of recurrence, To improve ability to perform tasks related to life management Therapeutic Exercise to Include: Strength training, Postural training, Flexibilty training, In an aquatic setting, Active ROM, Dynamic Lumbar Stabilization For the Purpose of:: To decrease pain, To increase ROM, To improve ability to perform ADL's, To increase tolerance to activity/condition/position, To improve ability of physical actions for home/community/work/leisure, To improve gait and locomotor functions, To improve health of tissue, To decrease soft tissue restriction, To improve safety with gait, To improve ability to perform tasks related to life management This patient was last seen in our office . Pertinent comments regarding their Physical therapy will appear below: Patient seen for Aquatic PT for right knee pain for ROM/strengthening . At this point I will be discontinuing this patient from physical therapy. I would be happy to see this patient again in the future if found appropriate by the physician. Thank you! Juan Manuel Culver, PT, Cert MDT, OCS
== END 2018-04-09 19:00 | disposition home or self-care (01) ==
LOC: PT 16:00
PROVIDERS: Family Provider Family Medicine; PCP Family Medicine; Referring Provider Family Medicine; Visit Provider Family Medicine
DX: M25.551 Pain in right hip (principal)
CPT/HCPCS: 97113; 97162

== ENCOUNTER → 2018-04-13 15:10 | Outpatient (CLI) | payer MEDICARE, SELFPAY ==
[2018-03-15 11:52] VITALS: BMI 34.0
--- NOTE | 2018-04-13 15:14 | VDLE_ITS ---
Reason For Study: swelling RIGHT LEFT GSV is normal. CFV is compressible, spontaneous, phasic, CFV is compressible, spontaneous, phasic, competent, and demonstrates normal competent and demonstrates normal augmentation. augmentation. FV is compressible, spontaneous, phasic, competent and demonstrates normal augmentation. POP V is compressible, spontaneous, phasic, competent and demonstrates normal augmentation. T/P Trunk is compressible. PTV is compressible. RT PerV is compressible. Procedure Exam performed in department. The exam was diagnostic. A preliminary report was called and/or faxed to Dr. Hurst. Interpretation Summary Deep veins of the right lower extremity are patent and compressible segmentally. There is no evidence of right lower extremity deep vein thrombosis. Valvular competence appears intact within the proximal deep venous system on the right . The right greater saphenous vein appears patent and compressible segmentally. Ordering Physician: Olga Hurst Performed By: Missael Oakley RVT
--- OUTSIDE RECORDS SUMMARY | 2018-07-16 03:34 | XMS RPT_ITS ---
:1935 Author Organization OHIP Support Name Relationship Address Phone MARILYN CHEW Unavailable [address] + [place] [address] R Unavailable Unavailable Unavailable VARNS, HELENA Unavailable [address] + [place] [address] MARILYN CHEW Unavailable [address] + [place] [address] R Unavailable Unavailable Unavailable VARNS, HELENA Unavailable [address] + [place] [address] MARILYN CHEW Unavailable [address] + [place] [address] R Unavailable Unavailable Unavailable VARNS, HELENA Unavailable [address] + [place] [address] MARILYN CHEW Unavailable [address] + [place] [address] R Unavailable Unavailable Unavailable VARNS, HELENA Unavailable [address] + [place] [address] MARILYN CHEW Unavailable [address] + [place] [address] R Unavailable Unavailable Unavailable VARNS, HELENA Unavailable [address] + [place] [address] MARILYN CHEW Unavailable [address] + [place] [address] R Unavailable Unavailable Unavailable VARNS, HELENA Unavailable [address] + [place] [address] MARILYN CHEW Unavailable [address] + [place] [address] R Unavailable Unavailable Unavailable VARNS, HELENA Unavailable [address] + [place] [address] JEEVAN, MARILYN Unavailable [address] + [place] [address] R Unavailable Unavailable Unavailable VARNS, HELENA Unavailable [address] + [place] [address] JEEVANPAVELMARILYN Unavailable [address] + [place] [address] R Unavailable Unavailable Unavailable VARNS, HELENA Unavailable [address] + [place] [address] JEEVAN MARILYN Unavailable [address] + [place] [address] R Unavailable Unavailable Unavailable VARNS, HELENA Unavailable [address] + [place] [address] JEEVAN MARILYN Unavailable [address] + [place] [address] R Unavailable Unavailable Unavailable VARNS, HELENA Unavailable [address] + [place] [address] JEEVANPAVELMARILYN Unavailable [address] + [place] [address] R Unavailable Unavailable Unavailable VARNS, HELENA Unavailable [address] + [place] [address] JEEVAN MARILYN Unavailable [address] + [place] [address] R Unavailable Unavailable Unavailable VARNS, HELENA Unavailable [address] + [place] [address] Care Team Providers Name Role Phone ZULEMA DUEÑAS Attending Unavailable ZULEMA DUEÑAS Referring Unavailable NEZULEMA [place] Attending Unavailable NEESTEBANIDRE Referring Unavailable NEJENARO [place]RE Attending Unavailable NEJENARO [place] Attending Unavailable NEJENARO [place] Attending Unavailable NEANTHONY WILLAMS, ZULEMA Referring Unavailable NEJENARO [place] Attending Unavailable NEJENARO [place] Attending Unavailable NEANTHONY WILLAMS, ZULEMA Referring Unavailable NEANTHONY WILLAMS ZULEMA Referring Unavailable NEZULEMA [place] Referring Unavailable Jolliff, Olga Attending Unavailable Jolliff, Olga S Referring Unavailable Jolliff, Olga Primary Care Unavailable Moodispaw, Rubin Attending Unavailable Kline, Daphnie M Referring Unavailable Jolliff, Olga Attending Unavailable Jolliff, Olga Primary Care Unavailable Moodyuripaw, Rubin Attending Unavailable Jolliff, Olga Referring Unavailable Jolliff, Olga Attending Unavailable Jolliff, Olga Referring Unavailable Jolliff, Olga Primary Care Unavailable Jolliff, Olga Attending Unavailable Leonid Jones Referring Unavailable Jolliff, Olga Primary Care Unavailable Jolliff, Olga Attending Unavailable Jolliff, Olga Primary Care Unavailable Giacomo Dyer Attending Unavailable Jolliff, Olga Primary Care Unavailable Kline, Daphnie M Attending Unavailable Jolliff, Olga Referring Unavailable Sal Judd Attending Unavailable Jolliff, Olga Referring Unavailable Kline, Daphnie M Attending Unavailable Kline, Daphnie M Referring Unavailable Jolliff, Olga Primary Care Unavailable Jolliff, Olga Consulting Unavailable Jolliff, Olga Attending Unavailable Jolliff, Olga Referring Unavailable Jolliff, Olga Primary Care Unavailable Jolliff, Olga Attending Unavailable Jolliff, Olga Referring Unavailable Jolliff, Olga Primary Care Unavailable PROBLEMS PROBLEMS DATE TYPE CONDITION / CODE ATTENDING STATUS SOURCE Unknown R07.89 - Other chest pain Rubin Arriaga Active [place] 8 / R07.89(ICD-10) [facility] Hospital Repository Unknown E78.5 - Hyperlipidemia, Raisa Active [place] 8 unspecified / [facility] E78.5(ICD-10) Hospital Repository Unknown I10 - Essential (primary) Kline, Active [place] 8 hypertension / [facility] I10(ICD-10) Hospital Repository Unknown E78.00 - Pure Kline, Active [place] 8 hypercholesterolemia, [facility] unspecified / Hospital E78.00(ICD-10) Repository Unknown E78.0 - Pure Kline, Active [place] 8 hypercholesterolemia / [facility] E78.0(ICD-10) Hospital Repository Unknown R55 - Syncope and Raisa, Active [place] 8 collapse / R55(ICD-10) [facility] Hospital Repository Unknown M25.551 - Pain in right Ranney, Active [place] 8 hip / M25.551(ICD-10) [facility] Hospital Repository Unknown R35.0 - Frequency of Gomez, Active [place] 8 micturition / [facility] R35.0(ICD-10) Hospital Repository Unknown M54.9 - Dorsalgia, Gomez, Active [place] 8 unspecified / [facility] M54.9(ICD-10) Hospital Repository Active Unknown / UNK(Unknown) MARCO ANTONIO [facility] [place] [facility] [place] [facility] Active Encounter for screening NA Active [place] 8 for malignant neoplasm of [facility] Main colon / Z12.11(ICD-10) [place] Repository Active Encounter for screening NA Active [place] 8 mammogram for malignant [facility] neoplasm of breast / [place] Z12.31(ICD-10) Repository Unknown 272.4 - Other and Olga Hurst Active [place] 8 unspecified Community hyperlipidemia / Hospital 272.4(ICD-9) Repository Unknown 401.9 - Unspecified Olga Hurst Active [place] 8 essential hypertension / Community 401.9(ICD-9) Hospital Repository PROCEDURES PROCEDURES No Procedure Records FoundRESULTS RESULTS CNOV Observed: 04/16/2018 Status: COMPLETED Source: [place] 10:50 AM [facility] REPOSITORY Office Visit (WOOB) BA SENIOR ([id number]) 1935 F Date Time Provider Department 04/16/18 10:50 AM ZULEMA DUEÑAS During your visit today, we recorded the following information about you: Blood pressure 136/74 Zulema Lemus MD 04/16/2018 11:04 AM Signed aB Puente Lulajoshdudley is a 83 year old female who presents for pessary placement. Had it out for BV infection- reports improvement in discharge, no pain, irritation, odor or bleeding. Ultrasound done recently shows Endometrial thickness 3.4mm. PAST MEDICAL HISTORY Diagnosis Date - Benign [...] children: 3 Occupational History Occupation Employer Comment [employer] Retired Social History Main Topics Smoking status: [...] for this visit. Allergies As of Date: 04/16/2018 Allergen Noted Reaction AMOXICILLIN 04/16/2005 Swelling ATARAX [HYDROXYZINE HCL] 04/16/2005 Swelling CEPHALEXIN 07/15/2012 Rash CODEINE 06/25/2007 GI Upset DICICLOMINE [OTHER] 04/16/2005 Swelling FLEXERIL [CYCLOBENZAPRINE HCL] 04/16/2005 Swelling ORUVAIL [KETOPROFEN] 04/16/2005 Swelling PREDNISONE 09/11/2014 Rash SUDAFED [PSEUDOEPHEDRINE] 08/24/2009 Intolerance SULFABENZAMIDE 04/16/2005 Anaphylaxis TRAMADOL 12/31/2014 Intolerance VOLTAREN [DICLOFENAC] 04/16/2005 Swelling Fully Assessed 04/16/2018 REVIEW OF SYSTEMS EXAM: BP 136/74 GENERAL: pleasant, female in no apparent distress PELVIC: pessary coated with trimsan and replaced without difficulty. Pt tolerated well. NEURO: alert and oriented x3,exam grossly non-focal EXTREMITIES: normal ASSESSMENT AND PLAN: Encounter Diagnosis ICD-10-CM 1. Pessary maintenance Z46.89 2. Female genital prolapse, unspecified type N81.9 3. RTO 3 mo Zulema Lemus MD Referring Provider: SELF [200] Allergies As of Date: 04/16/2018 Noted Allergy Reaction AMOXICILLIN 04/16/2005 7 - [...] Anaphylaxis TRAMADOL 12/31/2014 5 - Intolerance Comments: CRUCIBLE FURNACE TENDER side effects. VOLTAREN (DICLOFENAC) 04/16/2005 7 - Swelling Date Reviewed: 04/16/2018 Reviewed by: Kendy Dozier Ma - Fully Assessed Reason for Visit: Pessary [345] Primary Visit Diagnosis:Pessary maintenance [Z46.89] Other Visit Diagnosis:Female genital prolapse, unspecified type [N81.9] Prescriptions as of 04/16/2018 Sig: ASPIRIN 81 MG TABLET Take 81 mg by mouth. ATORVASTATIN 40 MG TABLET Take 1 tablet by mouth daily * CALCIUM CITRATE-VITAMIN D3 31* Take as directed ESTRADIOL 0.01% (0.1 MG/GRAM)* Apply fingertip amount nightl* HYDROCHLOROTHIAZIDE 25 MG TAB* Take 1 tablet by mouth once d* LISINOPRIL 10 MG TABLET Take 1 tablet by mouth once d* MAGLOX ORAL Take by mouth. NYSTATIN 100,000 UNIT/GRAM TO* Apply 1 application to affect* OXYCODONE 5 MG TABLET PHENAZOPYRIDINE 200 MG TABLET TIZANIDINE 4 MG TABLET Take 1 tablet by mouth every * Patient not taking: Reported on 08/26/2017 Problem List As Of Date 04/16/2018 Noted Resolved PAIN IN JOINT, LOWER LEG [...] pain [R10.9] INVALID FOR* Degenerative disc disease [URR9466] INVALID FOR* Cervical strain [S16.1XXA] INVALID FOR* Disposition: Return in about 3 months (around 07/15/2018) for pessary check . Follow-up and Disposition History Recorded Encounter Status:Closed by ZULEMA WILLAMS MD on 04/16/18 PROGRESS Observed: 04/16/2018 Status: COMPLETED Source: [place] 10:44 AM [facility] [place] REPOSITORY HNO ID: [id number] Author: Zulema Willams Service: (none) Author Type: Physician Type: Progress Notes Filed: 04/16/2018 11:04 AM Note Text: Ba Senior is a 83 year old female who presents for pessary placement. Had it out for BV infection- reports improvement in discharge, no pain, irritation, odor or bleeding. Ultrasound done recently shows Endometrial thickness 3.4mm. PAST MEDICAL HISTORY Diagnosis Date - Benign [...] children: 3 Occupational History Occupation Employer Comment [employer] Retired Social History Main Topics Smoking status: [...] for this visit. Allergies As of Date: 04/16/2018 Allergen Noted Reaction AMOXICILLIN 04/16/2005 Swelling ATARAX [HYDROXYZINE HCL] 04/16/2005 Swelling CEPHALEXIN 07/15/2012 Rash CODEINE 06/25/2007 GI Upset DICICLOMINE [OTHER] 04/16/2005 Swelling FLEXERIL [CYCLOBENZAPRINE HCL] 04/16/2005 Swelling ORUVAIL [KETOPROFEN] 04/16/2005 Swelling PREDNISONE 09/11/2014 Rash SUDAFED [PSEUDOEPHEDRINE] 08/24/2009 Intolerance SULFABENZAMIDE 04/16/2005 Anaphylaxis TRAMADOL 12/31/2014 Intolerance VOLTAREN [DICLOFENAC] 04/16/2005 Swelling Fully Assessed 04/16/2018 REVIEW OF SYSTEMS EXAM: BP 136/74 GENERAL: pleasant, female in no apparent distress PELVIC: pessary coated with trimsan and replaced without difficulty. Pt tolerated well. NEURO: alert and oriented x3,exam grossly non-focal EXTREMITIES: normal ASSESSMENT AND PLAN: Encounter Diagnosis ICD-10-CM 1. Pessary maintenance Z46.89 2. Female genital prolapse, unspecified type N81.9 3. RTO 3 mo Zulema Lemus MD VENOUS DUPLEX LOWER Observed: 04/13/2018 Status: F Source: [place] EXTREMITY 7:24 PM [facility] Cardiovascular Services [address] [place] [address] Venous Duplex US, Unilateral 04/13/18 1523 MR#: [id number] Acct: [id number] Name: BA SENIOR Rep #: [id number] : 1935 83 From: Wolf Severino MD [...] Date Dictated: 04/13/18 1523 Date Transcribed: 04/13/181923 [employer] Supervisor: Signed INITAL EVALUATION (1) Observed: 04/08/2018 Status: F Source: [place] - PT 5:27 PM [facility] [address] [place] [address]. [address] [place], [place] [address] Fax REHABILITATION SERVICES INITIAL EVALUATION MR#: [id number] Acct: [id number] Name: BA SENIOR Rep #: [id number] : 1935 83 From: Jeevan Culver PT, Cert. MDT, OCS Referring Dr.: Olga Hurst MD Status: REG R Insurance: [facility] SELF PAY INSURANCE Patient's Visit [...] to be FAXED BACK to us at [phone] for Medicare purposes. For Medicare only, by signing this I certify the plan of care. Please let me know if there are questions or concerns regarding this plan of care. Physician Signature: Date: <Electronically signed by Jeevan Culver PT, Cert. MDT, OCS> 04/08/18 1727 CC: Olga Hurst MD LIZ Signed HIMANSHU Observed: 04/07/2018 Status: COMPLETED Source: [place] 11:20 AM [facility] REPOSITORY Office Visit (WOOB) BA SENIOR ([id number]) 1935 F Date Time Provider Department 04/07/18 11:20 AM ZULEMA DUEÑAS [place] During your visit [...] children: 3 Occupational History Occupation Employer Comment [employer] Ret[employer] Social History Main Topics Smoking status: [...] external genitalia normal, normal Bartholin's glands, urethra, Rawlins's glands, no vulvar lesions, no cervical lesions, [...] Anaphylaxis TRAMADOL 12/31/2014 5 - Intolerance Comments: CRUCIBLE FURNACE TENDER side effects. VOLTAREN (DICLOFENAC) 04/16/2005 7 - Swelling Date Reviewed: 04/07/2018 Reviewed by: Kendy Dozier Ma - Fully Assessed Reason for Visit: Pessary [345] Primary Visit Diagnosis:PMB (postmenopausal bleeding) [N95.0] Other Visit Diagnoses:Other female genital prolapse [N81.89] Pessary maintenance [Z46.89] Bacterial vaginitis [N76.0, B96.89] Order(s):PELVIC US WHI [[id number]] Order #: [id number]: 1 metroNIDAZOLE (FLAGYL) 500 mg tabletTake 1 tablet by mouth twice daily for 7 days.Disp: 14 tabletRfl: 0 ENDOMETRIAL BIOPSY [[id number]] Order #: [id number] Prescriptions as of 04/07/2018 Sig: ASPIRIN 83 [...] FOR* Routine general medical examination at a [facility]*INVALID FOR*09/23/2011 Class: Chronic More... Routine gynecological [...] pain [R10.9] INVALID FOR* Degenerative disc disease [VHO5125] INVALID FOR* Cervical strain [S16.1XXA] INVALID FOR* [...] 04/07/18 PROGRESS Observed: 04/07/2018 Status: COMPLETED Source: [place] 11:17 AM [facility] REPOSITORY HNO ID: [id number] Author: Zulema [place] Service: (none) Author Type: [...] children: 3 Occupational History Occupation Employer Comment [employer] Retired Social History Main Topics Smoking status: [...] external genitalia normal, normal Bartholin's glands, urethra, Rawlins's glands, no vulvar lesions, no cervical lesions, [...] on ultrasound results and replace pessary. Zulema Carlos Enriquehart-[place], MD KNEE 3 VIEWS Observed: 03/30/2018 Status: F Source: [place] 12:05 PM [facility] REPOSITORY [facility] Imaging Services [address] [place] [address] Knee 3 Views MR#: [id number] Acct: [id number] Name: BA SENIOR Rep #: [id number] : 1935 F 83 From: Israel Denton MD PCP: Olga Hurst MD Status: REG CLI Study: Knee 3 Views Date of Exam: 03/30/18 Exam# [id number] Ordering Dr: Olga Hurst MD STUDY: X-RAY [...] Israel Denton MD at 10:22 EST Tel [phone], Service support , CC: Olga Hurst MD [employer] Supervisor: Signed HIP, UNI W/ PELVIS Observed: 03/26/2018 Status: F Source: [place] 2-3 VIEWS 4:37 PM [facility] REPOSITORY [facility] Imaging Services [address] [place] [address] HIP, UNI W/ Pelvis 2-3 Views MR#: [id number] Acct: [id number] Name: BA SENIOR Rep #: [id number] : 1935 F 83 From: Remy Goodson MD PCP: Olga Hurst MD Status: REG CLI Study: HIP, UNI W/ Pelvis 2-3 Views Date of Exam: 03/26/18 Exam# [id number] Ordering Dr: Olga Hurst MD HISTORY: CHRONIC [...] Service support , CC: Olga Hurst MD [employer] Supervisor: Signed STRESS REPORT Observed: 03/26/2018 Status: F Source: [place] 2:33 PM [facility] Cardiovascular Services [address] [place] [address] MR#: [id number] Acct: [id number] Name: BA SENIOR Rep #: [id number] : 1935 83 From: Rubin Arriaga MD [...] 91 %. This note was generated with VasoGenixation software. It may contain incorrect words, spelling, and punctuation that were not noted in checking the note before signing. 03/26/18 1433 <Electronically signed by Rubin Arriaga MD> Date Rubin Arriaga MD CC: Olga Hurst MD; Daphnie Kline Date Dictated: 03/26/18 143 Date Transcribed: 11/30/18 1430 [employer] Supervisor: PM Signed URGENT CARE VISIT Observed: 03/15/2018 Status: F Source: [place] REPORT 11:52 AM [facility] [address] [place] [address] [address] [place] [address] OFFICE VISIT Date of Service: 03/15/18 MR#: [id number] Acct: [id number] Name: BA SENIOR Rep #: [id number] : 1935 Provider: Sal SOTELO Age/Sex: 83/F Location: [facility] Status: Signed Intake Vital Signs03/15/18 Height 5 [...] the above. This note was generated with Mobilewalla dictation software. It may contain incorrect words, spelling, and punctuation that were not noted in checking the note before signing. Medications New: Coding Level of Care Code Off vis,est,level 3 Diagnoses Cellulitis of great toe, left L03.032 03/15/18 1152 <Electronically signed by Sal SOTELO> Date Sal SOTELO Cosigner Signature: Date (if applicable) CC: CARDIOLOGY VISIT Observed: 03/15/2018 Status: F Source: [place] REPORT 10:43 AM [facility] [address] [place] [address] [address] [place] [address] OFFICE VISIT Date of Service: 03/15/18 MR#: [id number] Acct: [id number] Name: BA SENIOR Rep #: [id number] : 1935 Provider: Daphnie Kline Age/Sex: 83/F Location: [facility] Status: Signed HPI HPI Details: BA SENIOR, [...] brachial Intake Visit Reasons: 1 Y FU Workday Consultant Required: No Accompanied by: none Is patient [...] MD PROGRESS Observed: 01/13/2018 Status: COMPLETED Source: [place] 11:08 AM [facility] REPOSITORY HNO ID: [id number] Author: Zulema [place] Service: (none) Author Type: [...] children: 3 Occupational History Occupation Employer Comment [employer] Retired Social History Main Topics Smoking status: [...] external genitalia normal, normal Bartholin's glands, urethra, Rawlins's glands, no vulvar lesions, no cervical lesions, [...] MD CNOV Observed: 01/13/2018 Status: COMPLETED Source: [place] 11:00 AM [facility] REPOSITORY Office Visit (WOOB) LULABA ANTUNEZ ([id number]) 1935 F Date Time Provider Department 01/13/18 11:00 AM ZULEMA DUEÑAS [place] During your visit today, we recorded the following information about you: Blood pressure Weight 116/58 78.9 kg Zulema Lemus MD 01/13/2018 11:33 AM Signed Ba Senior is a 82 year [...] children: 3 Occupational History Occupation Employer Comment [employer] Ret[employer] Social History Main Topics Smoking status: [...] external genitalia normal, normal Bartholin's glands, urethra, Rawlins's glands, no vulvar lesions, no cervical lesions, [...] Zulema Lemus MD Referring Provider: ZULEMA DUEÑAS [[id number]] Allergies As of Date: 01/13/2018 Noted Allergy [...] Anaphylaxis TRAMADOL 12/31/2014 5 - Intolerance Comments: CRUCIBLE FURNACE TENDER side effects. VOLTAREN (DICLOFENAC) 04/16/2005 7 - [...] pain [R10.9] INVALID FOR* Degenerative disc disease [LIE3272] INVALID FOR* Cervical strain [S16.1XXA] INVALID FOR* Prescriptions ordered this encounter Disp Refills Start End ESTRADIOL 0.01% (0.1 MG/GRAM) VAGINA* 1 Tu* 0 01/13/2018 Sig: Apply fingertip amount nightly x 4 weeks then use 2- 3 times per week Encounter Status:Closed by ZULEMA WILLAMS MD on 01/13/18 L/S SPINE MIN 4 Observed: 01/13/2018 Status: F Source: [place] VIEWS 9:04 AM [facility] Imaging Services [address] [place] [address] L/S Spine Min 4 Views MR#: [id number] Acct: [id number] Name: BA SENIOR Rep #: [id number] : 1935 F 82 From: Fahad Chavez DO PCP: Olga Hurst MD Status: REG CLI Study: L/S Spine Min 4 Views Date of Exam: 01/13/18 Exam# [id number] Ordering Dr: Ron Dyer MD STUDY: X-RAY [...] CC: Olga Hurst MD; Giacomo Dyer MD [employer] Supervisor: Signed THORACIC SPINE 2 Observed: 01/13/2018 Status: F Source: [place] VIEWS 9:04 AM [facility] Imaging Services [address] [place] [address] Thoracic Spine 2 Views MR#: [id number] Acct: [id number] Name: BA SENIOR Rep #: [id number] : 1935 F 82 From: Israel Denton MD PCP: Olga Hurst MD Status: REG CLI Study: Thoracic Spine 2 Views Date of Exam: 01/13/18 Exam# [id number] Ordering Dr: Ron Dyer MD STUDY: X-RAY [...] Israel Denton MD at 9:52 EDT Tel [phone], Service support , CC: Olga Hurst MD; Giacomo Dyer MD [employer] Supervisor: Signed HIP, UNI W/ PELVIS Observed: 01/13/2018 Status: F Source: [place] 2-3 VIEWS 9:04 AM [facility] Imaging Services [address] [address] HIP, UNI W/ Pelvis 2-3 Views MR#: [id number] Acct: [id number] Name: BA SENIOR Rep #: [id number] : 1935 F 82 From: Gregg Jama MD PCP: Olga Hurst MD Status: REG CLI Study: HIP, UNI W/ Pelvis 2-3 Views Date of Exam: 01/13/18 Exam# [id number] Ordering Dr: Ron Dyer MD STUDY: X-RAY [...] CC: Olga Hurst MD; Giacomo Dyer MD [employer] Supervisor: Signed URINALYSIS, COMPLETE Collected: 01/13/2018 Status: F Source: [place] 12:00 AM [facility] Order Comment: How was Urine Obtained? [...] URINE SEEN Performed By: #### L400.0001 #### [facility] [address] [place], [place], [address] Observed: 01/13/2018 Status: F Source: [place] CULTURE, URINE 12:00 AM [facility] Urine Culture There are no CLSI standards for interpretation of this Drug/Organism combination. ORGANISM 1: Corynebacterium striatum [place] Count 80,000-100,000 Performed By: #### M100.0650 #### [facility] [address] [place], [address] PT D/C SUMMARY (1) Observed: 12/07/2017 Status: F Source: [place] 1:30 PM [facility] [address] [place] [address] Fax REHABILITATION SERVICES DISCHARGE SUMMARY MR#: [id number] Acct: [id number] Name: BA SENIOR Rep #: [id number] : 1935 82 From: Rani Mares DPT Referring Dr.: Olga Hurst MD Status: REG RCR Insurance: [employer] [facility] SELF PAY INSURANCE HP - PT D/C [...] please feel free to call me at [phone]. Thank you for the referral of this patient. Sincerely, Rani Mares <Electronically signed by Rani Mares DPT> 12/07/17 1330 CC: Olga Hurst MD; Leonid Jones MD ELR Signed CBC W/DIFF, AUTOMATED Collected: 11/30/2017 Status: F Source: [place] 11:40 AM [facility] TYPE CODE TESTS RESULT OUT OF [...] Lymph 1.80 Performed By: #### L100.0100 #### [facility] [address] [place], [address] COMPREHENSIVE METABOLIC Collected: 11/30/2017 Status: F Source: [facility] 11:40 AM [facility] TYPE CODE TESTS RESULT OUT OF [...] 7 Performed By: #### L500.4050, L501.9520 #### [facility] [address] [place], [address] THYROID STIM HORMONE Collected: 11/30/2017 Status: F Source: [place] (TSH) 11:40 AM [facility] TYPE CODE TESTS RESULT OUT OF [facility] 01.9520 0.358-3.74 uIU/mL Normal TSH 0.88 Performed By: #### L500.4050, L501.9520 #### [facility] [address] [place], [address] RE-EVALUATION - PT (1) Observed: 11/23/2017 Status: F Source: [place] 10:59 AM [facility] [address] [place] [address]. [address] [place], [place] [address] Fax REEVALUATION / MEDICARE RECERTIFICATION PHYSICAL THERAPY MR#: [id number] Acct: [id number] Name: BA SENIOR Rep #: [id number] : 1935 82 From: aRni STANFORDT Referring Dr.: Olga Hurst MD Status: REG RCR Insurance: [employer]ETNA [facility] SELF PAY INSURANCE Olga Hurst MD, It has been my pleasure to treat BA OCTTONJOSHDUDLEY over the last 10 visits for Right [...] do not hesitate to contact me at [phone] by phone or if you have questions or concerns regarding this new plan of care! Sincerely, Rani Mares <Electronically signed by Rani Mares DPT> 11/23/17 1059 CC: Olga Hurst MD; Leonid Jones MD ELR Signed For Medicare only, by signing this I certify the plan of care. Physicians Signature Date PROGRESS Observed: 10/14/2017 Status: COMPLETED Source: [place] 1:59 PM [facility] REPOSITORY HNO ID: [id number] Author: Zulema Willams Service: (none) Author Type: [...] no apparent distress Pelvic: Bartholin's, urethra and Rawlins's glands were normal. The ring with support [...] MD CNOV Observed: 10/14/2017 Status: COMPLETED Source: [place] 1:30 PM [facility] REPOSITORY Office Visit (WOOB) BA SENIOR ([id number]) 1935 F Date Time Provider Department 10/14/17 [...] no apparent distress Pelvic: Bartholin's, urethra and Rawlins's glands were normal. The ring with support [...] Anaphylaxis TRAMADOL 12/31/2014 5 - Intolerance Comments: CRUCIBLE FURNACE TENDER side effects. VOLTAREN (DICLOFENAC) 04/16/2005 7 - [...] pain [R10.9] INVALID FOR* Degenerative disc disease [DDD0818] INVALID FOR* Cervical strain [S16.1XXA] INVALID FOR* [...] EVALUATION (1) Observed: 10/09/2017 Status: F Source: [place] - PT 8:10 AM [facility] [address] [place] [address] Fax REHABILITATION SERVICES INITIAL EVALUATION MR#: [id number] Acct: [id number] Name: BA SENIOR Rep #: [id number] : 1935 82 From: Rani Mares DPT Referring Dr.: Olga Hurst MD Status: REG RCR [facility] Patient's Visit Information BA [...] been walking a mile a day at [place] and outside when its nice. Sleep: occasionally [...] to be FAXED BACK to us at [phone] for Medicare purposes. Please let me know if there are questions or concerns regarding this plan of care. Physician Signature: Date: <Electronically signed by Rani Mares DPT> 10/09/17 0810 CC: Olga Hrust MD; Leonid Jones MD ELR Signed For Medicare only, by signing this I certify the plan of care. Physicians Signature Date HIP 2-3 VIEWS WITH Observed: 09/22/2017 Status: F Source: [place] PELVIS 12:52 PM [facility] Imaging Services [address] [place] [address] Hip 2-3 Views with Pelvis MR#: [id number] Acct: [id number] Name: BA SENIOR Rep #: [id number] : 1935 F 82 From: Gregg Jama MD PCP: Olga Hurst MD Status: REG CLI Study: Hip 2-3 Views with Pelvis Date of Exam: 09/22/17 Exam# [id number] Ordering Dr: Olga Hurst MD STUDY: X-RAY [...] Service support , CC: Olga Hurst MD [employer] Supervisor: Signed CNOV Observed: 09/14/2017 Status: COMPLETED Source: [place] 1:50 PM [facility] REPOSITORY Office Visit (WOOB) PARRISHBA ([id number]) 1935 F Date Time Provider Department 09/14/17 1:50 PM ZULEMA DUEÑAS During your visit today, we recorded the following information about you: Blood pressure Weight 104/62 78.9 kg Zulema Lemus MD 09/14/2017 2:09 PM Signed Mysql Dba offered: Patient declines. Ba Senior is an [...] children: 3 Occupational History Occupation Employer Comment [employer] [place] Retired Social History Main Topics Smoking status: [...] external genitalia normal, normal Bartholin's glands, urethra, Rawlins's glands, no vulvar lesions, normal appearing perineal [...] Zulema Lemus MD Referring Provider: ZULEMA DUEÑAS [[id number]] Allergies As of Date: 09/14/2017 Noted Allergy [...] Anaphylaxis TRAMADOL 12/31/2014 5 - Intolerance Comments: CRUCIBLE FURNACE TENDER side effects. VOLTAREN (DICLOFENAC) 04/16/2005 7 - [...] pain [R10.9] INVALID FOR* Degenerative disc disease [DSG4674] INVALID FOR* Cervical strain [S16.1XXA] INVALID FOR* Disposition: Return in about 4 weeks (around 10/12/2017) for pessary check . Follow-up and Disposition History Recorded Encounter Status:Closed by ZULEMA WILLAMS MD on 09/14/17 PROGRESS Observed: 09/14/2017 Status: COMPLETED Source: [place] 1:44 PM [facility] REPOSITORY HNO ID: [id number] Author: Zulema Willams Service: (none) Author Type: Physician Type: Progress Notes Filed: 09/14/2017 2:09 PM Note Text: Mysql Dba offered: Patient declines. Ba Senior is an [...] children: 3 Occupational History Occupation Employer Comment [employer] [place] Retired Social History Main Topics Smoking status: [...] external genitalia normal, normal Bartholin's glands, urethra, Rawlins's glands, no vulvar lesions, normal appearing perineal [...] OCCULT BLD Collected: 08/27/2017 Status: F Source: [facility] 7:30 AM [facility] REPOSITORY TYPE CODE TESTS RESULT OUT OF REFERENCE UNITS RANGE LAB IFO Negative Immuno Negative FOB Result Comment: This test was developed and its performance characteristics determined by [facility] Pathology and Laboratory Medicine [place] ([facility]). It has not been cleared or approved by the FDA. [facility] is regulated under CLIA as qualified to perform high-complexity testing. This test is used for clinical purposes. It should not be regarded as investigational or for research. Performed By: #### IFOBT #### [facility] [address] [place], [place] [address] CNCO Observed: 08/26/2017 Status: COMPLETED Source: [place] 10:31 AM [facility] [place] REPOSITORY HNO ID: [id number] Author: Coordinator, Mammography Service: (none) Author Type: Physician Type: Letter Filed: 08/27/2017 11:31 PM Note Text: August 26, 2017 PID: [id number] Ba Senior [address] [place] [address] Dear Ms. Senior, We are pleased to [...] report will be kept on file at [facility] as part of your permanent medical record and are available for your continuing care. Thank you for allowing us to help in meeting your health care needs. Sincerely, Dr. Valencia Interpreting Radiologist [facility] (Normal over 40) PROGRESS Observed: 08/26/2017 Status: COMPLETED Source: [place] 9:17 AM [facility] REPOSITORY HNO ID: [id number] Author: Zulema Willams Service: (none) Author Type: Physician Type: Progress Notes Filed: 08/26/2017 10:02 AM Note Text: Mysql Dba offered: Patient declines. Ba Senior is a [...] external genitalia normal, normal Bartholin's glands, urethra, Rawlins's glands, no vulvar lesions, no cervical lesions, [...] Dueñas CNOV Observed: 08/26/2017 Status: COMPLETED Source: [place] 9:00 AM [facility] REPOSITORY Office Visit (WOOB) BA SENIOR ([id number]) 1935 F Date Time Provider Department 08/26/17 9:00 AM ZULEMA DUEÑAS WOMADELINE During your visit today, we recorded the following information about you: Blood pressure Weight 136/72 80.7 kg Zulema Lemus MD 08/26/2017 10:02 AM Signed Mysql Dba offered: Patient declines. Ba Cottonjoshdudley is a 82 year old who presents [...] external genitalia normal, normal Bartholin's glands, urethra, Rawlins's glands, no vulvar lesions, no cervical lesions, [...] needed Zulema Dueñas Referring Provider: ZULEMA DUEÑAS [[id number]] Allergies As of Date: 08/26/2017 Noted Allergy [...] Anaphylaxis TRAMADOL 12/31/2014 5 - Intolerance Comments: CRUCIBLE FURNACE TENDER side effects. VOLTAREN (DICLOFENAC) 04/16/2005 7 - Swelling Date Reviewed: 08/26/2017 Reviewed by: Kendy Dozier Ma - Fully Assessed Reason for Visit: Yearly Exam [187] Primary Visit Diagnosis:Encounter for gynecological examination (general) (routine) without abnormal findings [Z01.419] Other Visit Diagnoses:Encounter for screening mammogram for breast cancer [Z12.31] Colon cancer screening [Z12.11] Order(s):ALEKSANDRA SCREENING [2260628] Order #: [id number] FUTURE OCCULT BLD EXAM-DIAG [SQOB] Order #: [id number] Prescriptions as of 08/26/2017 Sig: ATORVASTATIN 40 [...] B Routine general medical examination at a [facility]*INVALID FOR*09/23/2011 Class: Chronic More... Routine gynecological [...] pain [R10.9] INVALID FOR* Degenerative disc disease [IKK2859] INVALID FOR* Cervical strain [S16.1XXA] INVALID FOR* Disposition: Return in 3 weeks (on 09/16/2017) for pessary fitting. Follow-up and Disposition History Recorded Encounter Status:Closed by ZULEMA WILLAMS MD on 08/26/17 [facility] SCREENING Observed: 08/26/2017 Status: F Source: [place] 8:57 AM [facility] REPOSITORY * * *Final Report* * * DATE OF EXAM: Aug 26 2017 8:57AM KENZIE 0581 - [facility] SCREENING / PROCEDURE REASON: Encounter for screening mammogram for malignant neoplasm of breast * * * * Physician Interpretation * * * * RESULT: #[id number] - [facility] SCREENING BILATERAL DIGITAL SCREENING MAMMOGRAM [...] mammogram, 05/07/2015 mammogram, and 05/04/2014 mammogram - [facility]. There are scattered fibroglandular elements in both breasts. There is a biopsy clip in the left breast. No significant masses, calcifications, or other findings are seen in either breast. There has been no significant interval change. IMPRESSION: NEGATIVE There is no mammographic evidence of malignancy.A 1 year screening mammogram is recommended. Karolina Valencia M.D., jr/claudine:08/26/2017 10:31:48 Rn Transfer: Marisela ACEVES(Marilee)(Alphonse), [facility] letter sent: Normal over 40 Mammogram BI-RADS: 1 Negative [employer] Paper [employer] Supervisor: Claudine Transcribe Date/Time: Aug 26 2017 9:02A Dictated by: KAROLINA VALENCIA MD This examination was interpreted and the report reviewed and electronically signed by: KAROLINA VALENCIA MD on Aug 26 2017 10:31AM EST [id number] BASIC METABOLIC Collected: 06/02/2017 Status: F Source: [place] PROFILE (BMP) 10:41 AM [facility] Order Comment: Order Date: 06/02/17 Order Info: 0667-1 - BMP Order Info: 31322-2 - LIPID Order Info: 1920-8 - AST [...] By: #### L500.2500, L500.4100, L501.4100, L501.4405 #### [facility] [address] [place], [place], [address] LIPID PROFILE Collected: 06/02/2017 Status: F Source: [place] 10:41 AM [facility] Order Comment: Order Date: 06/02/17 Order Info: 0667-1 - BMP Order Info: 43901-3 - LIPID Order Info: 1920-8 - AST [...] By: #### L500.2500, L500.4100, L501.4100, L501.4405 #### [facility] [address] [place], [address] AST(SGOT) Collected: 06/02/2017 Status: F Source: [place] 10:41 AM [facility] Order Comment: Order Date: 06/02/17 Order Info: 0667-1 - BMP Order Info: 70956-2 - LIPID Order Info: 1919-11 - AST Order Info: 1741-6 - ALT TYPE CODE TESTS RESULT OUT OF RANGE REFERENCE UNITS LAB L501.4100 15-37 U/L Normal AST 19 Performed By: #### L500.2500, L500.4100, L501.4100, L501.4405 #### [facility] [address] [place], [place], [address] ALANINE AMINOTRANSFERAS Collected: 06/02/2017 Status: F Source: [place] (SGPT) 10:41 AM [facility] Order Comment: Order Date: 06/02/17 Order Info: 0667-1 - BMP Order Info: 95912-4 - LIPID Order Info: 1919-11 - AST Order Info: 1746 - ALT TYPE CODE TESTS RESULT OUT OF RANGE REFERENCE UNITS LAB L501.4405 13-56 U/L Normal ALT 20 Result Comment: Please note revised ALT reference range effective 2017. Performed By: #### L500.2500, L500.4100, L501.4100, L501.4405 #### [facility] [address] [place], [address] ALLERGIES ALLERGIES DATE TYPE / CODE NAME / CODE REACTION SEVERITY SOURCE 03/15/20 Drug hydroxyzine Swelling Unknown Allergy/384228660 HCl/U845648264(RXNO Community (SNOMED CT) ) Hospital Repository 03/15/20 Drug cyclobenzaprine Swelling Unknown [place] 18 Allergy/063804548 HCl/X609591073(RXNO Community (SNOMED CT) ) Hospital Repository 03/15/20 Drug pseudoephedrine Other Unknown [place] 18 Allergy/485733915 HCl/S467567210(RXNO Community (SNOMED CT) ) Hospital Repository 03/15/20 Drug diclofenac Swelling Unknown [place] 18 Allergy/475286360 sodium/S425964344(R Community (SNOMED CT) XNORM) Hospital Repository 03/15/20 Drug codeine/V746264424( Upset Stomach Unknown [place] 18 Allergy/810789150 RXNORM) Community (SNOMED CT) Hospital Repository 03/15/20 Drug prednisone/G8841287 Hives Unknown [place] 18 Allergy/282389376 64(RXNORM) [facility] (SNOMED CT) Hospital Repository 03/15/20 Drug ketoprofen/O0633890 Swelling Unknown [place] 18 Allergy/853974773 94(RXNORM) [facility] (SNOMED CT) Hospital Repository 03/15/20 Drug cephalexin/I0505238 Rash Unknown [place] 18 Allergy/944927388 16(RXNORM) [facility] (SNOMED CT) Hospital Repository 03/15/20 Drug clindamycin/V049341 Hives Unknown [place] 18 Allergy/127081565 794(RXNORM) [facility] (SNOMED CT) Hospital Repository 03/15/20 Drug sulfabenzamide/F006 Anaphylaxis Unknown [place] 18 Allergy/409032684 491831(RXNORM) [facility] (SNOMED CT) Hospital Repository 03/15/20 Drug amoxicillin/K983403 Swelling Unknown [place] 18 Allergy/531263912 675(RXNORM) [facility] (SNOMED CT) Hospital Repository 03/15/20 Drug tramadol/F072149446 Unknown Unknown [place] 18 Allergy/858233427 (RXNORM) [facility] (SNOMED CT) Hospital Repository 03/15/20 Drug dicyclomine/T015602 Swelling Unknown [place] 18 Allergy/587444418 711(RXNORM) [facility] (SNOMED CT) Hospital Repository 01/01/20 DRUG TRAMADOL INTOLERANCE [place] 15 INGREDI/566286176 Clinic Main (SNOMED CT) [place] Repository 09/12/19 DRUG PREDNISONE RASH [place] 15 INGREDI/993199293 Clinic Main (SNOMED CT) [place] Repository 07/16/19 DRUG CEPHALEXIN RASH [place] 13 INGREDI/593698565 Clinic Main (SNOMED CT) [place] Repository 08/25/19 DRUG PSEUDOEPHEDRINE INTOLERANCE [place] 10 INGREDI/598889062 Clinic Main (SNOMED CT) [place] Repository 06/25/19 DRUG CODEINE GI UPSET [place] 08 INGREDI/343206732 Clinic Main (SNOMED CT) [place] Repository 04/16/20 DRUG AMOXICILLIN SWELLING [place] 05 INGREDI/311315545 Clinic Main (SNOMED CT) [place] Repository 04/16/20 DRUG HYDROXYZINE HCL SWELLING [place] 05 INGREDI/808092543 Clinic Main (SNOMED CT) [place] Repository 04/16/20 Miscellaneous OTHER SWELLING [place] 05 Allergy/837529572 Clinic Main (SNOMED CT) [place] Repository 04/16/20 DRUG CYCLOBENZAPRINE HCL SWELLING [place] 05 INGREDI/887987155 Clinic Main (SNOMED CT) [place] Repository 04/16/20 DRUG KETOPROFEN SWELLING [place] 05 INGREDI/341394317 Clinic Main (SNOMED CT) [place] Repository 04/16/20 DRUG SULFABENZAMIDE ANAPHYLAXIS [place] 05 INGREDI/176117668 Clinic Main (SNOMED CT) [place] Repository 04/16/20 DRUG DICLOFENAC SWE[place]ING [place] 05 INGREDI/818833515 Clinic Main (SNOMED CT) [place] Repository ENCOUNTERS ENCOUNTERS ADMIT/DISCHARGE ACCOUNT ADMITTING ENCOUNTER LOCATION SOURCE NUMBER CLASS 04/16/2018/04/16/20 [id number] Ambulatory [address] Main [place] Repository 04/13/2018 [id number] Ambulatory [facility] ing:[facility]S Repository 04/09/2018 [id number] Ambulatory [facility] ing:PT Repository 04/09/2018/04/13/20 [id number] Ambulatory [address] Main [place] Repository 04/07/2018/04/08/20 [id number] Ambulatory [address] Main [place] Repository 03/30/2018 [id number] [facility] ing:MTRAD Repository 03/26/2018 [id number] Ambulatory BMSBuilding:W [place] [facility] Repository 03/26/2018 [id number] Ambulatory [facility] ing:[facility]S Repository 03/15/2018/03/15/20 [id number] Ambulatory BMSBuilding:B [place] 18 [facility] Repository 03/15/2018 [id number] Ambulatory BMSBuilding:B [place] [facility] Repository 03/15/2018/03/15/20 [id number] Ambulatory BMSBuilding:B [place] 18 [facility] Repository 01/13/2018/01/15/20 [id number] Ambulatory [address] Repository 01/13/2018 [id number] Ambulatory [facility] ing:LABSPEC Repository 12/07/2017/12/08/19 [id number] Ambulatory [address] Hospital ing:PT Repository 11/30/2017 [id number] Ambulatory [facility] ing:MFPLAB Repository 10/14/2017/10/17/19 [id number] Ambulatory [address] Repository 09/22/2017 [id number] Ambulatory [facility] ing:MTRAD Repository 09/14/2017/09/17/19 [id number] Ambulatory [address] Repository 08/27/2017 [id number] Ambulatory [facility] Repository 08/26/2017/09/01/19 [id number] Ambulatory [address] Repository 08/26/2017/08/27/19 [id number] Ambulatory [address] Repository 06/02/2017 [id number] Ambulatory [facility] ing:MFPLAB Repository PAYERS PAYERS ENCOUNTER GUARANTOR PAYER SUBSCRIBER SOURCE 04/13/2018 BA Puente Primary Insurance:[facility]TONY [id number] [facility] HALFHILLDOB: [facility] TAL MEBGPWNCEffective [id number] Date:8262-28-30OY BOX Repository [address]Jbu: [phone] [place] [facility] [phone] (HP) [phone]: 04/13/2018 Secondary NOT GIVENUNK [place] Insurance:SELF PAY Community INSURANCEPolicy Number: Hospital Effective Repository Date:2018-04-13 04/09/2018 ORA A Primary Insurance:AETNA ORA A [place] [id number] MCRPolicy Number: HALFHILLDOB: Community TAL MEBGPWNCEffective [id number] Date:1410-38-05XP BOX Repository [address]Oiz: [phone] [place] [phone] (HP) [phone]: 04/09/2018 Secondary NOT GIVENUNK [place] Insurance:SELF PAY Community INSURANCEPolicy Number: Hospital Effective Repository Date:2018-03-30 03/30/2018 ORA A Primary Insurance:AETNA ORA A [place] [id number] MCRPolicy Number: HALFHILLDOB: Community TAL MEBGPWNCEffective [id number] Hospital, [place] Date:2898-79-48ZC BOX Repository [address]Qlh: [phone] [place] [phone] (HP) [phone]: 03/30/2018 Secondary NOT GIVENUNK [place] Insurance:SELF PAY Community INSURANCEPolicy Number: Hospital Effective Repository Date:2018-03-30 03/26/2018 ORA A Primary Insurance:AETNA ORA A [place] [id number] MCRPolicy Number: HALFHILLDOB: Community TAL MEBGPWNCEffective [id number] [place] Date:7181-14-43EV BOX Repository [address]Wmw: [phone] [place] [phone] (HP) [phone]: 03/26/2018 Secondary NOT GIVENUNK [place] Insurance:SELF PAY Community INSURANCEPolicy Number: Hospital Effective Repository Date:2018-03-26 03/26/2018 ORA A Primary Insurance:AETNA ORA A [place] [id number] MCRPolicy Number: HALFHILLDOB: Community TAL MEBGPWNCEffective [id number] [facility] [place] Date:7243-55-93IJ BOX Repository [address]Knb: [phone] [place] [phone] () [address]LL: 03/26/2018 Secondary NOT GIVENUNK [place] Insurance:SELF PAY Community INSURANCEPolicy Number: Hospital Effective Repository Date:2018-03-15 03/15/2018 ORA A Primary Insurance:AETNA ORA A [place] [id number] MCRPolicy Number: HALFHILLDOB: Community TAL MEBGPWNCEffective [id number] Hospital, [place] Date:7520-89-67AN BOX Repository [address]Jto: [phone], [place] [phone] () [phone]: 03/15/2018 Secondary NOT GIVENUNK [place] Insurance:SELF PAY Community INSURANCEPolicy Number: Hospital Effective Repository Date:2018-03-15 03/15/2018 Ora A Primary Insurance:AETNA Ora A [place] [id number] MCRPolicy Number: [place]OB: Community Tal MEBGPWNCEffective [id number] [place] Date:7192-24-18FM BOX Repository [address]Dmf: [phone], [place] [phone] () [phone]: 03/15/2018 Secondary NOT GIVENUNK [place] Insurance:SELF PAY Community INSURANCEPolicy Number: Hospital Effective Repository Date:2017-04-10 03/15/2018 ORA A Primary Insurance:AETNA ORA A [place] [id number] MCRPolicy Number: HALFHILLDOB: Community TAL MEBGPWNCEffective [id number] Hospital, [place] Date:6251-85-62DD BOX Repository [address]Tfz: [phone] [place], [place] [phone] (HP) [phone]: 03/15/2018 Secondary NOT GIVENUNK [place] Insurance:SELF PAY Community INSURANCEPolicy Number: Hospital Effective Repository Date:2018-03-15 01/13/2018 Ora A Primary Insurance:AETNA Ora A [place] [id number] MCRPolicy Number: [place]DOB: Community Tal MEBGPWNCEffective [id number] Date:3739-79-21OI BOX Repository [address]Cue: [phone] [place] [phone] (HP) [phone]: 01/13/2018 Secondary NOT GIVENUNK [place] Insurance:SELF PAY Community INSURANCEPolicy Number: Hospital Effective Repository Date:2018-01-13 12/07/2017 Ora A Primary Insurance:AETNA Ora A [place] [id number] MCRPolicy Number: [place]DOB: Community Tal MEBGPWNCEffective [id number] Date:5940-53-30OP BOX Repository [address]Ncl: [phone] [place], [place] [phone] (HP) [phone]: 12/07/2017 Secondary NOT GIVENUNK [place] Insurance:SELF PAY Community INSURANCEPolicy Number: Hospital Effective Repository Date:2017-10-06 11/30/2017 Ora A Primary Insurance:AETNA Ora A [place] [id number] MCRPolicy Number: [place]DOB: Community Tal MEBGPWNCEffective [id number] Date:1498-58-83US BOX Repository [address]Qtu: [phone] [place] [phone] (HP) [phone]: 11/30/2017 Secondary NOT GIVENUNK [place] Insurance:SELF PAY Community INSURANCEPolicy Number: Hospital Effective Repository Date:2017-11-30 09/22/2017 Ora A Primary Insurance:AETNA Ora A [place] [id number] MCRPolicy Number: [place]DOB: Community Tal SEALSPWNCEffective [id number] [place], [place] Date:5790-89-80KC BOX Repository [address]Icz: [phone] [facility] [phone] () [address]BY: 09/22/2017 Secondary NOT GIVENUNK [place] Insurance:SELF PAY Community INSURANCEPolicy Number: Hospital Effective Repository Date:2017-09-22 06/02/2017 Ora A Primary Insurance:AETNA Ora A [place] [id number] MCRPolicy Number: [place]DOB: Community Tal HOLTBGPWNCEffective [id number] View, [place] Date:2784-72-19JI BOX Repository [address]Rfw: [phone] [facility] [phone] () [phone]: 06/02/2017 Secondary NOT GIVENUNK [place] Insurance:SELF PAY Community INSURANCEPolicy Number: Hospital Effective Repository Date:2017-06-02
== END ==
PROVIDERS: Family Provider Family Medicine; PCP Family Medicine; Referring Provider Family Medicine; Visit Provider Family Medicine
DX: M79.89 Other specified soft tissue disorders (principal)
CPT/HCPCS: 93971

== ENCOUNTER 2018-11-03 22:47 | Observation (INO) | payer MEDICARE, SELFPAY ==
[2018-03-15 11:52] VITALS: BMI 34.0
[2018-11-03 22:48] VITALS: BP 124/79; PULSE 68; RESP 24; TEMP 36.7; O2SAT 97; BMI 31.1
--- NOTE | 2018-11-03 22:53 | EKG12_ITS ---
Test Reason : SOB Blood Pressure : / mmHG Vent. Rate : 069 BPM Atrial Rate : 069 BPM P-R Int : 184 ms QRS Dur : 080 ms QT Int : 416 ms P-R-T Axes : 076 022 048 degrees QTc Int : 445 ms Normal sinus rhythm Normal ECG Confirmed by SAMIA DONAHUE, JORDYN ([id number]), purchase request editor LINDA STEINBERG ([id number]) on 11/05/2018 12:25:36 PM Referred By: MIS Confirmed By:JANELL GRACIA MD
--- NOTE | 2018-11-03 22:55 | RAD_ITS ---
STUDY: X-RAY CHEST REASON FOR EXAM: Female, 83 years old. Shortness of breath. TECHNIQUE: Single AP portable view of the chest. COMPARISON: July 03, 2015. FINDINGS: Telemetry wires overlie the chest. The lungs are clear and expanded. There is no demonstrated pleural abnormality. Normal size heart. Normal mediastinum and megan. Normal visualized pulmonary arteries. Normal visualized aortic arch and descending thoracic aorta. The thoracic spine is obscured by the mediastinum. Normal visualized ribs, clavicles, and shoulders. There is no demonstrated abnormality of the visualized soft tissue structures of the upper abdomen. RAD/Chest 1 View (Portable) IMPRESSION: No acute cardiopulmonary disease or interval change. Electronically Signed: Anurag Barba DO at 23:19 EDT Tel [phone], Service support ,
--- NOTE | 2018-11-03 22:55 | ED.VISSUMM ---
- ER Visit Summary Date of Service: 11/03/18 Chief Complaint: Shortness of breath History of Present Illness: The patient is a 83 F who presents with shortness of breath. Started earlier today. Daughter was on the phone with her and noted that she was very winded when she talked. She does have dyspnea with exertion. Is better with rest. She admits to a cough but nonproductive of sputum. She has not had a fever. Denies any chest pain. She has not had any leg swelling. She does not have any stents in her heart. She has hypertension high cholesterol. Physical Examination: Vital signs reviewed. HEENT exam unremarkable. Heart is regular rate and rhythm without murmurs. Lungs are clear to auscultation. Abdomen is soft and nontender. Extremities reveal no edema. Peripheral pulses are equal. Skin exam normal. Neurologic exam normal. Test Results: EKG is sinus rhythm with a rate of 69. No ST changes. Labs are unremarkable except for a d-dimer 1.06. Chest x-ray and CTA of the chest were both unremarkable. Emergency Department Course and Treatment: Patient was given albuterol but it did not help her symptoms. She experienced another episode of chest pain in the emergency department sooner repeat EKG was performed and it was unchanged from the first EKG done. She did have an episode where she desaturated to 88% on room air in the bed. I am unclear as to why this happened as there is no consolidation or PE. The patient was placed on supplemental oxygen with improvement. Patient will be admitted to the hospital for cycling of her heart enzymes. Treatment Plan: [] Disposition: Admit Impression: Chest pain, dyspnea This note was generated with nothingGrinder dictation software. It may contain incorrect words, spelling, and punctuation that were not noted in review of the chart prior to signing ED Disposition - Plan for ED Patient: Referrals: Olga Hurst MD [Primary Care Provider] -
[2018-11-03] MEDS: Albuterol 2.5 MG/3 ML VIAL.NEB. INHALATION (22:59)
[2018-11-03 23:01] VITALS: PULSE 68; RESP 18
[2018-11-03 23:09] LABS: Absolute Lymphocyte Count 1.95 X10^3/ul (0.83-4.51); Absolute Neutrophil Count 3.6 X10^3/uL (2.0-7.7); Basophil# 0.04 X10^3/uL; Basophil% 0.6 % (0-1); Eosinophil# 0.23 X10^3/uL; Eosinophils% 3.4 % (0-5); Hematocrit 37.3 % (37-47); Hemoglobin 12.4 g/dl (12.0-15.0); Lymphocyte # 1.95 X10^3/ul (4.0); Lymphocyte % 28.8 % (19-41); Mean Corp Hgb Conc 33.2 g/gl (32-36); Mean Corpuscular Hgb 29.2 pg (27.0-32.0); Mean Corpuscular Volume 87.8 fL (81-99); Mean Platelet Vol. 9.6 fl (6.2-12.0); Monocyte# 0.98 X10^3/uL; Monocyte% 14.5 % (0-10); Neutrophil # 3.56 X10^3/uL (2.7-7.7); Neutrophil % 52.7 % (47-70); Platelet Count 158 K/mm3 (150-450); RBC Distribution Width CV 13.1 % (11.6-14.6); RBC Distribution Width SD 41.8 fl (35.1-43.9); Red Blood Count 4.25 M/mm3 (4.2-5.4); White Blood Count 6.8 K/mm3 (4.4-11.0)
[2018-11-03 23:19] VITALS: O2SAT 98
[2018-11-03 23:21] VITALS: BP 109/59; PULSE 75; RESP 28; O2SAT 98
[2018-11-03 23:23] VITALS: O2SAT 88
[2018-11-03 23:24] VITALS: TEMP 36.9; O2SAT 98
[2018-11-03 23:26] LABS: POSITIVE COUNT NO; POSITIVE DIFFERENTIAL NO; POSITIVE MORPHOLOGY NO
[2018-11-03 23:29] LABS: D-Dimer Quantitative (DVT/PE) 1.06 FEU/ug/m (0.27-0.49)
--- NOTE | 2018-11-03 23:29 | ED.RN ---
DR SANTANA NOTIFIED OF DDIMER RESULTS
--- NOTE | 2018-11-03 23:37 | CT_ITS ---
HISTORY: SOB. Hx of HTN and HLD. TECHNIQUE: CT angiogram images of the chest were obtained with 100 mL Isovue 300 IV contrast as per pulmonary angiogram protocol. 3D MIP images used to aid in evaluation for pulmonary embolism. Number of images including paperwork: 1138 A radiation dose optimization technique was used for this scan. COMPARISON: None FINDINGS: PULMONARY ARTERIES: No pulmonary arterial filling defects. AORTA AND GREAT VESSELS: No dissection. Vascular tortuosity. Mild atherosclerotic calcification. Dependent atelectasis. HEART/PERICARDIUM: Upper normal heart size. Coronary calcification. MEDIASTINUM: Moderate sized hiatal hernia. ADENOPATHY: No pathologic appearing adenopathy. THYROID: Unremarkable visualized portions. LUNG PARENCHYMA: No consolidation or mass. PLEURAL SPACES: Unremarkable. UPPER ABDOMEN: Unremarkable. OSSEOUS AND SOFT TISSUE STRUCTURES: No acute skeletal findings. Degenerative changes. CT/CTA Chest W/WO Contrast IMPRESSION: No pulmonary embolus detected. Individualized dose optimization techniques were used for this CT. at 0020 Reported and signed by: Luz Ramos MD Electronically Signed: Luz Ramos MD at 0:20 EDT Tel , Service support ,
[2018-11-03 23:41] LABS: Anion Gap 5 (5-15); BUN 31 mg/dL (7-18); BUN/Creat Ratio 36.3 RATIO (10-20); Calcium,Total 8.9 mg/dL (8.5-10.1); Chloride 107 mmol/L (98-107); Creatinine, Serum 0.86 mg/dL (0.55-1.02); EST Glomerular Filtration Rate 68 mL/min (>60); Est Glom Filt Rate - Afr Amer 82 mL/min (>60); Estimated Creatinine Clearance 40.58 ml/min; Glucose 145 mg/dL (74-106); Potassium 3.8 mmol/L (3.5-5.1); Sodium Level 138 mmol/L (136-145)
[2018-11-03 23:45] LABS: BNP,B-Type NATRIURETIC PEPTIDE 36.1 pg/mL (0-100)
[2018-11-04] VITALS (11 sets, daily range): BP systolic 128–140; BP diastolic 47–70; PULSE 64–90; RESP 18–21; TEMP 36.6–36.7; O2SAT 95–100; BMI 32.6
--- NOTE | 2018-11-04 00:31 | ED.RN ---
PATIENT NOW COMPLAINING OF LEFT SIDED CHEST PAIN THAT RADIATES TO LEFT ARM. DR. SANTANA NOTIFIED. NEW ORDERS OBTAINED. WILL CONTINUE TO MONITOR.
--- NOTE | 2018-11-04 00:52 | PCM.HP.STD ---
Problem List (1) Chest pain Status: Acute Qualifiers: Chest pain type: unspecified Qualified Code(s): R07.9 - Chest pain, unspecified (2) HLD (hyperlipidemia) Status: Chronic Qualifiers: Hyperlipidemia type: unspecified Qualified Code(s): E78.5 - Hyperlipidemia, unspecified (3) HTN (hypertension) Status: Chronic Qualifiers: Hypertension type: essential hypertension Qualified Code(s): I10 - Essential (primary) hypertension History of Present Illness Date of Admission: 11/04/18 Chief Complaint: Shortness of breath, chest pain - 1 day The patient is a 83 year old F with hypertension, hyperlipidemia, h/o syncope, her last stress test was in February 2018 and was negative. Patient comes in with complaints of shortness of breath and dull substernal chest pain that radiates to her left arm. Denies any nausea or diaphoresis with this. Denies any palpitations. She denied any orthopnea or PND or leg swelling. Her vitals in the ED showed temperature 98.0 F, heart rate 68, blood pressure 124/79, respiratory rate 24, SPO2 97% on room air. Admitting CBC D was unremarkable as well as a BMP. Her d-dimer was elevated at 1.06. T of the chest was negative for acute PE. No acute ST-T changes on EKG. Normal sinus rhythm. Over the course of her stay in the ED, patient appropriate oxygen saturation 8%, improved on 2 L of oxygen. Past Medical History Past Medical History (Chronic Problems): Chronic Problems (Last Updated 03/15/18 @ 11:43 by Kayleigh Ernandez) HLD (hyperlipidemia) (Chronic) HTN (hypertension) (Chronic) Brain tumor (Chronic) Medical History: Medical History (Last Updated 03/15/18 @ 11:43 by Kayleigh Ernandez) Arthritis M19.90 Back pain M54.9 Diarrhea R19.7 Fatigue R53.83 Hemorrhoids K64.9 Incontinence R32 Limb weakness R29.898 SOB (shortness of breath) R06.02 Severe headache R51 Shoulder pain M25.519 HTN (hypertension) I10 Allergies amoxicillin [Amoxicillin] Allergy (Verified 11/03/18 22:51) Swelling cephalexin Allergy (Verified 11/03/18 22:51) Rash clindamycin Allergy (Verified 11/03/18 22:51) Hives codeine Allergy (Verified 11/03/18 22:51) Upset Stomach cyclobenzaprine HCl [From Flexeril] Allergy (Verified 11/03/18 22:51) Swelling diclofenac sodium [From Voltaren] Allergy (Verified 11/03/18 22:51) Swelling dicyclomine Allergy (Verified 11/03/18 22:51) Swelling hydroxyzine HCl [From Atarax] Allergy (Verified 11/03/18 22:51) Swelling ketoprofen [From Oruvail] Allergy (Verified 11/03/18 22:51) Swelling prednisone Allergy (Verified 11/03/18 22:51) Hives pseudoephedrine HCl [From Sudafed] Allergy (Verified 11/03/18 22:51) Other sulfabenzamide Allergy (Verified 11/03/18 22:51) Anaphylaxis tramadol Allergy (Verified 11/03/18 22:51) Unknown Home Medications: Ambulatory Orders Medication Instructions Recorded Aspirin [Aspirin, Baby] 81 mg PO DAILY@0800 11/10/13 Calcium Citrate/Vitamin D3 2 ea PO PRN PRN 11/10/13 [Calcium Citrate-Vit D3 Caplet] Hydrochlorothiazide 25 mg PO DAILY 11/10/13 Lisinopril [Zestril] 10 mg PO DAILY 11/10/13 atorvastatin 20 mg tablet 20 mg PO QHS 30 Days #30 tab 03/15/18 polyethylene glycol 3350 17 17 mg PO DAILY PRN g 03/15/18 gram/dose oral powder Surgical History: Surgical History (Last Updated 03/15/18 @ 11:43 by Kayleigh Ernandez) History of brain surgery Z98.890 Surgical History: appendectomy, - - let knee replacement 2004, left sided brain surgery for a tumor,breast bx Smoking Status: Never smoker - *Family History Maternal Family History: Family History (Last Updated 03/15/18 @ 11:44 by Kayleigh Ernandez) Other Cancer Heart disease History Items: Cancer, Heart Disease Paternal Family History: Family History (Last Updated 03/15/18 @ 11:44 by Kayleigh Ernandez) Other Cancer Heart disease History Items: Cancer, Heart Disease Review of Systems Constitutional: Denies: Chills, Fever, Weight Change HEENT: Denies: Head Aches, Sinus Congestion, Sinus Drainage Cardiovascular: Denies: Chest Pain, Palpitations Respiratory: Denies: Cough, Shortness of breath at rest, Sputum production Gastrointestinal: Denies: Abdominal Pain, Nausea, Vomiting Genitourinary: Denies: Dysuria Musculoskeletal: Denies: Joint Pain, Joint Tenderness Skin: Denies: Rash, Wounds Neurological: Denies: Numbness, Tingling, Focal weakness Psychiatric: Denies: Anxiety, Depression, Homicidal Ideations, Suicidal Ideations Hematologic/ Lymphatic: Denies: Easy Bruising, Easy Bleeding VTE Information - Inpt Only VTE Present on Admission: No VTE Pharm Prophylaxis ordered?: Yes Patient Problems: Active and Suspected Problems (Last Updated 03/15/18 @ 11:43 by Kayleigh Ernandez) Chest pain (Acute) - Physical Exam General: Alert, Oriented x3, Cooperative HEENT: Atraumatic, PERRLA, EOMI, Normocephalic Neck: Supple, No JVD, Negative Carotid Bruits Lungs: Clear to auscultation, Normal air movement Cardiovascular: Regular rate, No murmurs Abdomen: Bowel Sounds Present, Soft, Non Tender Extremities: No edema, Capillary Refill Less than 3 Seconds Skin: No rashes, No breakdown Musculoskeletal: No Tenderness to Palpation of Joints or Extremities Neurological: Cranial nerves II-XII grossly intact Psych/Mental Status: Normal Affect, Appropriate Vital Signs Temp Pulse Resp BP Pulse Ox 98.5 F 86 20 H 131/57 H 98 11/03/18 23:24 11/04/18 00:27 11/04/18 00:27 11/04/18 00:27 11/04/18 00:27 Oxygen Flow Rate (L/min) 2 Oxygen Delivery Method Room Air Weight: 77.111 kg Body Mass Index (BMI) 31.1 Laboratory Tests Past 24 Hrs 11/03/18 11/03/18 11/03/18 23:00 23:00 23:00 WBC 6.8 RBC 4.25 Hgb 12.4 Hct 37.3 MCV 87.8 MCH 29.2 MCHC 33.2 RDW 13.1 RDW Differential 41.8 Plt Count 158 MPV 9.6 Immature Gran % (Auto) 0.000 Neut % (Auto) 52.7 Lymph % (Auto) 28.8 [place] % (Auto) 14.5 H Eos % (Auto) 3.4 Baso % (Auto) 0.6 Absolute Neuts (auto) 3.6 Absolute Lymphs (auto) 1.95 Total Counted Not Reportable D-Dimer Quant (PE/DVT) 1.06 H* Sodium 138 Potassium 3.8 Chloride 107 Carbon Dioxide 26.0 Anion Gap 5 BUN 31 H Creatinine 0.86 Estim Creat Clear Calc 40.58 Est GFR (MDRD) Af Amer 82 Est GFR (MDRD) Non-Af 68 BUN/Creatinine Ratio 36.3 H Glucose 145 H Calcium 8.9 Troponin I < 0.015 B-Natriuretic Peptide 11/03/18 23:00 WBC RBC Hgb Hct MCV MCH MCHC RDW RDW Differential Plt Count MPV Immature Gran % (Auto) Neut % (Auto) Lymph % (Auto) [place] % (Auto) Eos % (Auto) Baso % (Auto) Absolute Neuts (auto) Absolute Lymphs (auto) Total Counted D-Dimer Quant (PE/DVT) Sodium Potassium Chloride Carbon Dioxide Anion Gap BUN Creatinine Estim Creat Clear Calc Est GFR (MDRD) Af Amer Est GFR (MDRD) Non-Af BUN/Creatinine Ratio Glucose Calcium Troponin I B-Natriuretic Peptide 36.1 Assessment/Plan All Active Problems (Last Updated 03/15/18 @ 11:43 by Kayleigh Ernandez) Chest pain (Acute) Cellulitis of great toe, left (Acute) Chest pressure (Acute) Seizures (Resolved) 83 year old F with hypertension, hyperlipidemia, h/o syncope, her last stress test was in February 2018 and was negative. Patient comes in with complaints of shortness of breath and dull substernal chest pain that radiates to her left arm. 1. Chest pain, concerning for possible angina, recent stress test less than a year ago was negative No acute ST-T changes on EKG. Troponins negative. Plan: Admit to PCU, monitor on telemetry, cardiology consult to decide whether patient needs stress test or otherwise, trend troponins 2. Transient acute respiratory failure, SPO2 was 88%, unclear etiology, improved with oxygenation 3. Hypertension, controlled, continue on home hydrochlorothiazide and lisinopril 4. Hyperlipidemia, continue statins 5. DVT PPx- Heparin SC Code Visit Inpatient E&M: 16079 Init Hosp L3
--- NOTE | 2018-11-04 03:33 | EKG12_ITS ---
Test Reason : REPEAT Blood Pressure : / mmHG Vent. Rate : 083 BPM Atrial Rate : 083 BPM P-R Int : 190 ms QRS Dur : 096 ms QT Int : 420 ms P-R-T Axes : 013 005 037 degrees QTc Int : 493 ms Normal sinus rhythm Prolonged QT Abnormal ECG When compared with ECG of 03-NOV-2018 22:50, MANUAL COMPARISON REQUIRED, DATA IS UNCONFIRMED Confirmed by SAMIA DONAHUE, JORDYN ([id number]), editorial assistant MARISSA BOWENS ([id number]) on 11/05/2018 3:53:36 PM Referred By: Dexter Wilder Confirmed By:JANELL GRACIA MD
--- NOTE | 2018-11-04 03:59 | EKG12_ITS ---
Test Reason : CP ADMISSION Blood Pressure : / mmHG Vent. Rate : 068 BPM Atrial Rate : 068 BPM P-R Int : 196 ms QRS Dur : 094 ms QT Int : 440 ms P-R-T Axes : 035 008 043 degrees QTc Int : 467 ms Normal sinus rhythm Inferior infarct ,age undetermined, undertermined Abnormal ECG Confirmed by NAYLA DONAHUE, TIANA ([id number]), city editor LINDA STEINBERG ([id number]) on 11/11/2018 10:33:43 AM Referred By: Dxeter Wilder Confirmed By:TIANA WINSLOW MD
[2018-11-04 05:43] LABS: Absolute Neutrophil Count 2.8 X10^3/uL (2.0-7.7); Basophil# 0.03 X10^3/uL; Basophil% 0.6 % (0-1); Eosinophil# 0.16 X10^3/uL; Eosinophils% 3.2 % (0-5); Hematocrit 37.8 % (37-47); Hemoglobin 12.6 g/dl (12.0-15.0); Lymphocyte % 27.8 % (19-41); Mean Corp Hgb Conc 33.3 g/gl (32-36); Mean Corpuscular Volume 86.9 fL (81-99); Mean Platelet Vol. 9.8 fl (6.2-12.0); Monocyte# 0.67 X10^3/uL; Monocyte% 13.3 % (0-10); Neutrophil # 2.77 X10^3/uL (2.7-7.7); Neutrophil % 54.9 % (47-70); Platelet Count 162 K/mm3 (150-450); RBC Distribution Width CV 12.9 % (11.6-14.6); Red Blood Count 4.35 M/mm3 (4.2-5.4)
[2018-11-04 05:49] LABS: POSITIVE COUNT NO; POSITIVE DIFFERENTIAL NO; POSITIVE MORPHOLOGY NO
[2018-11-04 06:08] LABS: ALB/GLOB Ratio 0.9 RATIO (0.9-2.4); AST(SGOT) 13 U/L (15-37); Alanine Aminotransfer ALT/SGPT 16 U/L (13-56); Albumin, Serum 2.9 g/dL (3.2-5.0); Alkaline Phosphatase 67 U/L (45-117); Anion Gap 9 (5-15); BUN 26 mg/dL (7-18); BUN/Creat Ratio 33.8 RATIO (10-20); Calcium,Total 8.7 mg/dL (8.5-10.1); Chloride 107 mmol/L (98-107); Creatinine, Serum 0.77 mg/dL (0.55-1.02); EST Glomerular Filtration Rate 76 mL/min (>60); Est Glom Filt Rate - Afr Amer 93 mL/min (>60); Globulin 3.3 g/dL (2.2-4.2); Glucose 119 mg/dL (74-106); Potassium 3.6 mmol/L (3.5-5.1); Protein, Total 6.2 g/dL (6.4-8.2); Sodium Level 141 mmol/L (136-145)
[2018-11-04] MEDS: Ipratropium/Albuterol Sulfate 3 ML AMPUL.NEB INHALATION ×3 (07:11→15:55)
[2018-11-04] MEDS: hydroCHLOROthiazide 25 MG Tablet PO (08:27)
[2018-11-04] MEDS: Lisinopril 10 MG Tablet PO (08:27)
[2018-11-04] MEDS: Aspirin 81 MG TAB.CHEW PO (08:27)
--- NOTE | 2018-11-04 12:04 | ECHOD_ITS ---
Reason For Study: DYSPNEA/SOB Procedure This was a 2D Doppler, Color Flow transthoracic echocardiogram. Exam performed portable in patient room. Left Ventricle Normal size and thickness. The estimated ejection fraction is 60 %. Diastolic function is indeterminate. No regional wall motion abnormalities noted. Right Ventricle Normal RV size. Normal systolic function. Atria Normal left atrium. Normal right atrium. No doppler evidence for ASD. Mitral Valve There is no mitral valve stenosis. No mitral valve insufficiency. Tricuspid Valve There is no tricuspid stenosis. Unable to estimate RV systolic pressure due to insufficient tricuspid regurgitant envelope. Trivial tricuspid valve insufficiency. Aortic Valve Trisinus/trileaflet aortic valve. There is no aortic stenosis. No aortic valve insufficiency. Pulmonic Valve There is no pulmonic valvular stenosis. No pulmonic valve insufficiency. Great Vessels Normal aortic root. Pericardium/Pleural No pericardial effusion. MMode/2D Measurements & Calculations LVIDd: 4.7 cm IVSd: 0.89 cm Ao root diam: 3.1 cm LVIDs: 2.7 cm LVPWd: 0.81 cm FS: 42.1 % LAV(MOD-bp): 52.9 ml LA A4 area: 19.7 cm2 LA dimension(2D): 4.3 cm LAV(MOD-bp) Indexed: 28.9 ml/m2 LAV(MOD-sp2): 51.0 ml LAV(MOD-sp4): 55.1 ml RA A4 area: 15.2 cm2 Time Measurements MV dec time: 0.19 sec Doppler Measurements & Calculations MV E max darek: 86.1 cm/sec Lat Peak E' Darek: 9.2 cm/sec Med Peak E' Darek: 8.0 cm/sec MV A max darek: 101.2 cm/sec E/E' lat: 9.4 E/E' med: 10.8 MV E/A: 0.85 Ao V2 max: 137.7 cm/sec LV V1 max: 119.8 cm/sec PA V2 max: 112.1 cm/sec Ao max P.6 mmHg LV V1 max P.7 mmHg TR max darek: 213.9 cm/sec TR max P.3 mmHg Interpretation Summary The estimated ejection fraction is 60 %. Diastolic function is indeterminate. Ordering Physician: Viviane Kirk Referring Physician: Olga Hurst Performed By: Denise Howard RDCS, RVT
--- NOTE | 2018-11-04 12:29 | CON.PCM_ITS ---
Problem List (1) Chest pain Status: Acute Qualifiers: Chest pain type: unspecified Qualified Code(s): R07.9 - Chest pain, unspecified Reason for Consult Date of Consultation: 11/04/18 Reason for Consultation: Chest pain, shortness of breath History of Present Illness: The patient is a 83 year old F [presenting to [facility] with shortness of breath. Patient states that she was having some shortness of breath yesterday afternoon which progressively got worse in the evening and she came to the emergency room. In the emergency room she was given albuterol treatments which helped with the shortness of breath but patient had some sharp left-sided chest discomfort right after the breathing treatment. Patient had a stress test a number of 2018 which was negative for ischemia. She had an echo in 2017 which showed preserved EF and mild left atrial enlargement. Going by the note from normal of 2018 it appears that patient had similar chest discomfort at that time as well. Troponin x3 has been negative. EKG is unremarkable.] Review of systems: All else is negative except that in the HPI. Past Medical History Allergies/Adverse Reactions: Allergies amoxicillin [Amoxicillin] Allergy (Verified 11/03/18 22:51) Swelling cephalexin Allergy (Verified 11/03/18 22:51) Rash clindamycin Allergy (Verified 11/03/18 22:51) Hives codeine Allergy (Verified 11/03/18 22:51) Upset Stomach cyclobenzaprine HCl [From Flexeril] Allergy (Verified 11/03/18 22:51) Swelling diclofenac sodium [From Voltaren] Allergy (Verified 11/03/18 22:51) Swelling dicyclomine Allergy (Verified 11/03/18 22:51) Swelling hydroxyzine HCl [From Atarax] Allergy (Verified 11/03/18 22:51) Swelling ketoprofen [From Oruvail] Allergy (Verified 11/03/18 22:51) Swelling prednisone Allergy (Verified 11/03/18 22:51) Hives pseudoephedrine HCl [From Sudafed] Allergy (Verified 11/03/18 22:51) Other sulfabenzamide Allergy (Verified 11/03/18 22:51) Anaphylaxis tramadol Allergy (Verified 11/03/18 22:51) Unknown Home Medications: Ambulatory Orders Medication Instructions Recorded Aspirin [Aspirin, Baby] 81 mg PO DAILY@0800 11/10/13 Calcium Citrate/Vitamin D3 2 ea PO PRN PRN 11/10/13 [Calcium Citrate-Vit D3 Caplet] Hydrochlorothiazide 25 mg PO DAILY 11/10/13 Lisinopril [Zestril] 10 mg PO DAILY 11/10/13 atorvastatin 20 mg tablet 20 mg PO QHS 30 Days #30 tab 03/15/18 polyethylene glycol 3350 17 17 mg PO DAILY PRN g 03/15/18 gram/dose oral powder Past Medical History (Chronic Problems): Chronic Problems (Last Updated 03/15/18 @ 11:43 by Kayleigh Ernandez) HLD (hyperlipidemia) (Chronic) HTN (hypertension) (Chronic) Brain tumor (Chronic) Surgical History: appendectomy, - - let knee replacement 2004, left sided brain surgery for a tumor,breast bx - *Family History Maternal Family History: Family History (Last Updated 03/15/18 @ 11:44 by Kayleigh Ernandez) Other Cancer Heart disease History Items: Cancer, Heart Disease Paternal Family History: Family History (Last Updated 03/15/18 @ 11:44 by Kayleigh Ernandez) Other Cancer Heart disease History Items: Cancer, Heart Disease Smoking Status: Never smoker Objective: Vital Signs Temp Pulse Resp BP Pulse Ox 97.9 F 76 18 132/54 H 95 11/04/18 08:09 11/04/18 10:45 11/04/18 10:45 11/04/18 08:09 11/04/18 08:09 Oxygen Flow Rate (L/min) 2 Oxygen Delivery Method Room Air Weight: 180 lb 5.41 oz Body Mass Index (BMI) 32.6 Intake and Output for Last 24 Hours 11/02/18 11/03/18 11/04/18 23:59 23:59 23:59 Intake Total 50 / 50 Balance 50 / 50 General: Awake, Alert, Oriented x 3 HEENT: Atraumatic Oral: Moist Mucosa Neck: Supple Lungs: Clear to auscultation Cardiovascular: Normal S1, Normal S2 Vascular: No Carotid Bruits Abdomen: Soft Extremities: No edema Skin: No Rashes Psych/Mental Status: Appropriate 11/03/18 23:00: WBC 6.8, RBC 4.25, Hgb 12.4, Hct 37.3, MCV 87.8, MCH 29.2, MCHC 33.2, RDW 13.1, RDW Differential 41.8, Plt Count 158, MPV 9.6, Immature Gran % (Auto) 0.000, Neut % (Auto) 52.7, Lymph % (Auto) 28.8, Archer % (Auto) 14.5 H, Eos % (Auto) 3.4, Baso % (Auto) 0.6, Absolute Neuts (auto) 3.6, Total Counted Not Reportable 11/03/18 23:00: D-Dimer Quant (PE/DVT) 1.06 H* 11/03/18 23:00: Sodium 138, Potassium 3.8, Chloride 107, Carbon Dioxide 26.0, Anion Gap 5, BUN 31 H, Creatinine 0.86, Est GFR (MDRD) Af Amer 82, Est GFR (MDRD) Non-Af 68, BUN/Creatinine Ratio 36.3 H, Glucose 145 H, Calcium 8.9, Troponin I < 0.015 11/03/18 23:00: B-Natriuretic Peptide 36.1 11/04/18 01:57: Troponin I < 0.015 11/04/18 05:20: Sodium 141, Potassium 3.6, Chloride 107, Carbon Dioxide 25.0, Anion Gap 9, BUN 26 H, Creatinine 0.77, Est GFR (MDRD) Af Amer 93, Est GFR (MDRD) Non-Af 76, BUN/Creatinine Ratio 33.8 H, Glucose 119 H, Calcium 8.7, Total Bilirubin 0.50, Troponin I < 0.015 11/04/18 05:20: WBC 5.0, RBC 4.35, Hgb 12.6, Hct 37.8, MCV 86.9, MCH 29.0, MCHC 33.3, RDW 12.9, RDW Differential 40.0, Plt Count 162, MPV 9.8, Immature Gran % (Auto) 0.200, Neut % (Auto) 54.9, Lymph % (Auto) 27.8, Archer % (Auto) 13.3 H, Eos % (Auto) 3.2, Baso % (Auto) 0.6, Absolute Neuts (auto) 2.8, Total Counted Not Reportable Rhythm: EKG: ECHO: Stress Test: Cardiac Cath: PCI: CT Surgery: Holter monitor: EPS: PPM: CXR: Chest CT Scan: Assessment/Plan 1. Chest pain: This appears atypical. She does not need any further work-up for this. 2. Shortness of breath: This appears pulmonary in etiology. There is no evidence of heart failure. I think it would be reasonable to check a 2D echo. If the echo is unremarkable from a cardiac standpoint she can be discharged home.
[2018-11-04] MEDS: Heparin Injection (Vial) 5,000 UNIT/ML VIAL 5000 UNIT SC (14:08)
--- NOTE | 2018-11-04 15:34 | PCM.DC ---
- Discharge Diagnoses Current Active Problems: Current Active and Chronic Problems (Last Updated 03/15/18 @ 11:43 by Kayleigh Ernandez) Chest pain (Acute) You will use the following diet at home:: Cardiac Your food should be the consistency of: Regular Your liquids should be the consistency of: Regular/Thin Discharge Activity: Return to Normal Activity Allergies/Adverse Reactions: Allergies amoxicillin [Amoxicillin] Allergy (Verified 11/03/18 22:51) Swelling cephalexin Allergy (Verified 11/03/18 22:51) Rash clindamycin Allergy (Verified 11/03/18 22:51) Hives codeine Allergy (Verified 11/03/18 22:51) Upset Stomach cyclobenzaprine HCl [From Flexeril] Allergy (Verified 11/03/18 22:51) Swelling diclofenac sodium [From Voltaren] Allergy (Verified 11/03/18 22:51) Swelling dicyclomine Allergy (Verified 11/03/18 22:51) Swelling hydroxyzine HCl [From Atarax] Allergy (Verified 11/03/18 22:51) Swelling ketoprofen [From Oruvail] Allergy (Verified 11/03/18 22:51) Swelling prednisone Allergy (Verified 11/03/18 22:51) Hives pseudoephedrine HCl [From Sudafed] Allergy (Verified 11/03/18 22:51) Other sulfabenzamide Allergy (Verified 11/03/18 22:51) Anaphylaxis tramadol Allergy (Verified 11/03/18 22:51) Unknown Medications to take at Discharge Aspirin [Aspirin, Baby] 81 mg PO DAILY@0800 11/10/13 Calcium Citrate/Vitamin D3 [Calcium Citrate-Vit D3 Caplet] 2 ea PO PRN PRN 11/10/13 Hydrochlorothiazide 25 mg PO DAILY 11/10/13 Lisinopril [Zestril] 10 mg PO DAILY 11/10/13 atorvastatin 20 mg tablet 20 mg PO QHS 30 Days #30 tab 03/15/18 polyethylene glycol 3350 17 gram/dose oral powder 17 mg PO DAILY PRN g 03/15/18 Primary Care Physician: Olga Hurst MD [Primary Care Provider] - Please follow up with your Primary Care Physician in: 1-2 weeks Test Results: Test results from this visit will be discussed in further detail at your follow-up appointment, if applicable. Please Follow Up With: Cardiology When: As directed Proposed Discharge Date: 11/04/18
--- NOTE | 2018-11-04 15:51 | DS.PCM_ITS ---
<Bryce Mckeon - Last Filed: 11/04/18 15:51> Discharge Date and Diagnosis - Problem List Patient Problems: Active and Suspected Problems (Last Updated 03/15/18 @ 11:43 by Kayleigh Ernandez) Chest pain (Acute) Date of Admission: 11/04/18 Date of Discharge: 11/04/18 - Primary Discharge Diagnosis Active and Suspected Problems (Last Updated 03/15/18 @ 11:43 by Kayleigh Ernandez) Chest pain (Acute) secondary to musculoskeletal pain Hyperlipidemia Hypertension - Secondary Discharge Diagnosis Chronic Problems (Last Updated 03/15/18 @ 11:43 by Kayleigh Ernandez) HLD (hyperlipidemia) (Chronic) HTN (hypertension) (Chronic) Brain tumor (Chronic) Hospital Course and Treatment Imaging Results: 11/04/18 12:04 Echo Complete [ECHO] Routine Interpretation Summary The estimated ejection fraction is 60 %. Diastolic function is indeterminate. CT/CTA Chest W/WO Contrast IMPRESSION: No pulmonary embolus detected. Individualized dose optimization techniques were used for this CT. RAD/Chest 1 View (Portable) IMPRESSION: No acute cardiopulmonary disease or interval change. Consultations: Cardiology- [place] Operations: None Procedures: 2-D Echocardiogram Summary of Care Provided: Hospital course: The patient is a 83 year old F with past medical history of syncope, hypertension, hyperlipidemia, who underwent a stress test February 2018 that was negative for inducible ischemia, who presented to the emergency room with chest pain. Patient developed chest pain bilaterally along the articulation of the ribs and sternum. She had associated mild shortness of breath. No associated nausea, vomiting, diaphoresis, radiation into her arms neck or back. She had no lightheadedness or dizziness. In the emergency room her chest x-ray, troponin, and EKG were negative for ischemia. She was admitted to the PCU on telemetry with concerns for underlying cardiac disease. As she had recently had a stress test that was negative it was felt that she would benefit from a cardiology referral to determine whether she should undergo a another stress test or alternative testing. Repeat EKGs were negative, telemetry was negative, troponin was negative x3. D-dimer was elevated and a CTA of the chest was obtained which was negative for PE. Beta natruretic peptide was also negative. Cardiology evaluated the patient and felt that the patient should be evaluated with an echocardiogram. Echo was unremarkable, and cardiology recommended discharge home with outpatient follow-up. It was felt that her chest pain was secondary to musculoskeletal pain. It was reproducible on palpation along the articulation of the ribs and sternum, and this pain began after doing stretch cord exercises of her upper extremities with exercises that specifically targeted the region of her pain. She was discharged home in stable condition. She was advised to follow-up with her primary care physician in 1 to 2 weeks, and with cardiology as directed. She should resume outpatient physical therapy with care in regards to overexertion and muscular skeletal strains. This patient was seen by rByce Mckeon PA-C under the supervision of Doctor Salas. [] Patient Problems: Active and Suspected Problems (Last Updated 03/15/18 @ 11:43 by Kayleigh Ernandez) Chest pain (Acute) - Physical Exam General: Alert, Oriented x3, Cooperative HEENT: Atraumatic, PERRLA, EOMI, Normocephalic Neck: Supple, No JVD, Negative Carotid Bruits Lungs: Clear to auscultation, Normal air movement Cardiovascular: Regular rate, No murmurs Abdomen: Bowel Sounds Present, Soft, Non Tender Extremities: No edema, Capillary Refill Less than 3 Seconds Skin: No rashes, No breakdown Musculoskeletal: No Tenderness to Palpation of Joints or Extremities, - - L/R sternal tenderness to palpation Neurological: Cranial nerves II-XII grossly intact Psych/Mental Status: Normal Affect, Appropriate, Alert and oriented to time, place, person, mood and affect Vital Signs Temp Pulse Resp BP Pulse Ox 98.0 F 71 18 140/47 H 97 11/04/18 14:03 11/04/18 14:03 11/04/18 14:03 11/04/18 14:03 11/04/18 14:03 Oxygen Flow Rate (L/min) 2 Oxygen Delivery Method Room Air Weight: 180 lb 5.41 oz Body Mass Index (BMI) 32.6 Intake and Output for Last 24 Hours 11/02/18 11/03/18 11/04/18 23:59 23:59 23:59 Intake Total 290 / 290 Balance 290 / 290 Laboratory Tests Past 24 Hrs 11/03/18 11/03/18 11/03/18 23:00 23:00 23:00 WBC 6.8 RBC 4.25 Hgb 12.4 Hct 37.3 MCV 87.8 MCH 29.2 MCHC 33.2 RDW 13.1 RDW Differential 41.8 Plt Count 158 MPV 9.6 Immature Gran % (Auto) 0.000 Neut % (Auto) 52.7 Lymph % (Auto) 28.8 Sawyer % (Auto) 14.5 H Eos % (Auto) 3.4 Baso % (Auto) 0.6 Absolute Neuts (auto) 3.6 Absolute Lymphs (auto) 1.95 Total Counted Not Reportable D-Dimer Quant (PE/DVT) 1.06 H* Sodium 138 Potassium 3.8 Chloride 107 Carbon Dioxide 26.0 Anion Gap 5 BUN 31 H Creatinine 0.86 Estim Creat Clear Calc 40.58 Est GFR (MDRD) Af Amer 82 Est GFR (MDRD) Non-Af 68 BUN/Creatinine Ratio 36.3 H Glucose 145 H Calcium 8.9 Total Bilirubin AST ALT Alkaline Phosphatase Troponin I < 0.015 B-Natriuretic Peptide Total Protein Albumin Globulin Albumin/Globulin Ratio 11/03/18 11/04/18 11/04/18 23:00 01:57 05:20 WBC RBC Hgb Hct MCV MCH MCHC RDW RDW Differential Plt Count MPV Immature Gran % (Auto) Neut % (Auto) Lymph % (Auto) Sawyer % (Auto) Eos % (Auto) Baso % (Auto) Absolute Neuts (auto) Absolute Lymphs (auto) Total Counted D-Dimer Quant (PE/DVT) Sodium 141 Potassium 3.6 Chloride 107 Carbon Dioxide 25.0 Anion Gap 9 BUN 26 H Creatinine 0.77 Estim Creat Clear Calc 34.90 Est GFR (MDRD) Af Amer 93 Est GFR (MDRD) Non-Af 76 BUN/Creatinine Ratio 33.8 H Glucose 119 H Calcium 8.7 Total Bilirubin 0.50 AST 13 L ALT 16 Alkaline Phosphatase 67 Troponin I < 0.015 < 0.015 B-Natriuretic Peptide 36.1 Total Protein 6.2 L Albumin 2.9 L Globulin 3.3 Albumin/Globulin Ratio 0.9 11/04/18 05:20 WBC 5.0 RBC 4.35 Hgb 12.6 Hct 37.8 MCV 86.9 MCH 29.0 MCHC 33.3 RDW 12.9 RDW Differential 40.0 Plt Count 162 MPV 9.8 Immature Gran % (Auto) 0.200 Neut % (Auto) 54.9 Lymph % (Auto) 27.8 Sawyer % (Auto) 13.3 H Eos % (Auto) 3.2 Baso % (Auto) 0.6 Absolute Neuts (auto) 2.8 Absolute Lymphs (auto) 1.40 Total Counted Not Reportable D-Dimer Quant (PE/DVT) Sodium Potassium Chloride Carbon Dioxide Anion Gap BUN Creatinine Estim Creat Clear Calc Est GFR (MDRD) Af Amer Est GFR (MDRD) Non-Af BUN/Creatinine Ratio Glucose Calcium Total Bilirubin AST ALT Alkaline Phosphatase Troponin I B-Natriuretic Peptide Total Protein Albumin Globulin Albumin/Globulin Ratio Discharge Diet: Soft diet, 2000 mg Sodium Diet Discharge Activity: Return to Normal Activity Home Medications: Medications to take at Discharge Aspirin [Aspirin, Baby] 81 mg PO DAILY@0800 11/10/13 Calcium Citrate/Vitamin D3 [Calcium Citrate-Vit D3 Caplet] 2 ea PO PRN PRN 11/10/13 Hydrochlorothiazide 25 mg PO DAILY 11/10/13 Lisinopril [Zestril] 10 mg PO DAILY 11/10/13 atorvastatin 20 mg tablet 20 mg PO QHS 30 Days #30 tab 03/15/18 polyethylene glycol 3350 17 gram/dose oral powder 17 mg PO DAILY PRN g 03/15/18 Primary Care Physician: Olga Hurst MD [Primary Care Provider] - Please follow up with your Primary Care Physician in: 1-2 weeks Please Follow Up With: Cardiology When: As directed Disposition: Home Minutes spent on discharge:: 35 Patient Condition:: Stable Medical Necessity - Tobacco Use Smoking Status: Never smoker Meaningful Use Info Meaningful Use Diagnoses (Choose all that apply): None applicable <Kade Marina - Last Filed: 11/04/18 16:10> Discharge Date and Diagnosis - Primary Discharge Diagnosis Active and Suspected Problems (Last Updated 03/15/18 @ 11:43 by Kayleigh Ernandez) Chest pain (Acute) - Secondary Discharge Diagnosis Chronic Problems (Last Updated 03/15/18 @ 11:43 by Kayleigh Ernandez) HLD (hyperlipidemia) (Chronic) HTN (hypertension) (Chronic) Brain tumor (Chronic) Hospital Course and Treatment Imaging Results: 11/04/18 12:04 Echo Complete [ECHO] Routine Operations: None Procedures: 2-D Echocardiogram Summary of Care Provided: Patient seen and examined independently. Data reviewed. I agree with the above note by the physician nursing assistant. The patient is a 83 year old F chest pain. On exam, pain was reproducible. [place] to be muscular skeletal and not cardiac. Patient underwent limited cardiac work-up including echocardiogram as well as cardiology consultation that was unremarkable. Is felt that given the patient's symptoms and atypical features that this is not cardiac and no additional cardiac with work-up would be necessary. Patient was discharged home. [] - Physical Exam General: Alert, Cooperative HEENT: Atraumatic, Normocephalic Lungs: Clear to auscultation, Normal air movement, No rhonchi, No wheeze Cardiovascular: Regular rate, Regular Rhythm, Normal S1, Normal S2, No murmurs Abdomen: Bowel Sounds Present, Soft, Non Tender, Non-Distended Skin: No rashes, No breakdown Musculoskeletal: - Psych/Mental Status: Normal Affect, Appropriate - reproducible left upper chest pain. Vital Signs Temp Pulse Resp BP Pulse Ox 36.7 C 71 18 140/47 H 97 11/04/18 14:03 11/04/18 14:03 11/04/18 14:03 11/04/18 14:03 11/04/18 14:03 Oxygen Flow Rate (L/min) 2 Oxygen Delivery Method Room Air Weight: 81.8 kg Body Mass Index (BMI) 32.6 Intake and Output for Last 24 Hours 11/02/18 11/03/18 11/04/18 23:59 23:59 23:59 Intake Total 290 / 290 Balance 290 / 290 Laboratory Tests Past 24 Hrs 11/03/18 11/03/18 11/03/18 23:00 23:00 23:00 WBC 6.8 RBC 4.25 Hgb 12.4 Hct 37.3 MCV 87.8 MCH 29.2 MCHC 33.2 RDW 13.1 RDW Differential 41.8 Plt Count 158 MPV 9.6 Immature Gran % (Auto) 0.000 Neut % (Auto) 52.7 Lymph % (Auto) 28.8 Sawyer % (Auto) 14.5 H Eos % (Auto) 3.4 Baso % (Auto) 0.6 Absolute Neuts (auto) 3.6 Absolute Lymphs (auto) 1.95 Total Counted Not Reportable D-Dimer Quant (PE/DVT) 1.06 H* Sodium 138 Potassium 3.8 Chloride 107 Carbon Dioxide 26.0 Anion Gap 5 BUN 31 H Creatinine 0.86 Estim Creat Clear Calc 40.58 Est GFR (MDRD) Af Amer 82 Est GFR (MDRD) Non-Af 68 BUN/Creatinine Ratio 36.3 H Glucose 145 H Calcium 8.9 Total Bilirubin AST ALT Alkaline Phosphatase Troponin I < 0.015 B-Natriuretic Peptide Total Protein Albumin Globulin Albumin/Globulin Ratio 11/03/18 11/04/18 11/04/18 23:00 01:57 05:20 WBC RBC Hgb Hct MCV MCH MCHC RDW RDW Differential Plt Count MPV Immature Gran % (Auto) Neut % (Auto) Lymph % (Auto) Sawyer % (Auto) Eos % (Auto) Baso % (Auto) Absolute Neuts (auto) Absolute Lymphs (auto) Total Counted D-Dimer Quant (PE/DVT) Sodium 141 Potassium 3.6 Chloride 107 Carbon Dioxide 25.0 Anion Gap 9 BUN 26 H Creatinine 0.77 Estim Creat Clear Calc 34.90 Est GFR (MDRD) Af Amer 93 Est GFR (MDRD) Non-Af 76 BUN/Creatinine Ratio 33.8 H Glucose 119 H Calcium 8.7 Total Bilirubin 0.50 AST 13 L ALT 16 Alkaline Phosphatase 67 Troponin I < 0.015 < 0.015 B-Natriuretic Peptide 36.1 Total Protein 6.2 L Albumin 2.9 L Globulin 3.3 Albumin/Globulin Ratio 0.9 11/04/18 05:20 WBC 5.0 RBC 4.35 Hgb 12.6 Hct 37.8 MCV 86.9 MCH 29.0 MCHC 33.3 RDW 12.9 RDW Differential 40.0 Plt Count 162 MPV 9.8 Immature Gran % (Auto) 0.200 Neut % (Auto) 54.9 Lymph % (Auto) 27.8 Sawyer % (Auto) 13.3 H Eos % (Auto) 3.2 Baso % (Auto) 0.6 Absolute Neuts (auto) 2.8 Absolute Lymphs (auto) 1.40 Total Counted Not Reportable D-Dimer Quant (PE/DVT) Sodium Potassium Chloride Carbon Dioxide Anion Gap BUN Creatinine Estim Creat Clear Calc Est GFR (MDRD) Af Amer Est GFR (MDRD) Non-Af BUN/Creatinine Ratio Glucose Calcium Total Bilirubin AST ALT Alkaline Phosphatase Troponin I B-Natriuretic Peptide Total Protein Albumin Globulin Albumin/Globulin Ratio Discharge Diet: Soft diet, 2000 mg Sodium Diet Discharge Activity: Return to Normal Activity Disposition: Home Minutes spent on discharge:: 35 Patient Condition:: Stable Medical Necessity - Tobacco Use Smoking Status: Never smoker Meaningful Use Info Meaningful Use Diagnoses (Choose all that apply): None applicable Code Visit OBSV E&M: 69873 Observation care discharge
== END 2018-11-04 15:14 | disposition home or self-care (01) ==
LOC: ED 23:13 → PCU 11-04 01:00
PROVIDERS: Admitting Provider Internal Medicine; Emergency Provider Emergency Medicine; Family Provider Family Medicine; PCP Family Medicine
DX: R07.89 Other chest pain (principal); E78.5 Hyperlipidemia, unspecified; I10 Essential (primary) hypertension; M19.90 Unspecified osteoarthritis, unspecified site; Z79.899 Other long term (current) drug therapy; Z79.82 Long term (current) use of aspirin; R06.02 Shortness of breath
CPT/HCPCS: 36415; 71045; 71275; 80048; 80053; 83880; 84484; 85025; 85379; 93005; 93306; 94640; 96372; 99218; 99285; J7050; Q9967; A4216; G0378

== ENCOUNTER 2018-11-08 10:00 | Outpatient (RCR) | payer MEDICARE, SELFPAY ==
[2018-03-15 11:52] VITALS: BMI 34.0
--- NOTE | 2018-10-08 13:24 | HP.PTEVAL_ITS ---
Patient's Visit Information ANNEMARIE GUADARRAMA is a 83 year old F referred to Physical Therapy by VIOLET Hernandez with a diagnosis of NUMBNESS IN BOTH ARMS. Date of Evaluation: 10/08/18 Physical Therapist: Juan Manuel Culver PT, Cert MDT, [facility] - Visit Plan Frequency: 2x /Week Duration: 4 Weeks - Subjective Findings: This 83 y/o female presents to physical therapy with numbness in both arms. Patient has had intermittant symptoms witth parathesia in arms along with weakness in arms trting to pick ups things. Currently,no parathesia in arms,but global ache in arms. Seen DR Recommeded PT and pain MEDS.Aggravating factors no specific sitting,reading ,lifting objects . Alleviating factors none specific. Patient does have parathesia at night. 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 Patient condtion affects QOL and function.COMORBITIES: brain surgery remove begnin tumor,osteoprosis,lumbar kypoholplasty,left TKR. SOCAIL: . VOCATION: RETIRED - Pain Bilateral Shoulder Pain Intensity (Out of 10): 1 Pain Intensity Range: 0, 10 - Objective POSTURE: mild thoracic kyphosis. GAIT: reciprocal pattern with rollatator. NEURO: c/o parathesi/tingling in arms,reflexes L3-4,L4-5,L5-S1 3/3. CERVICAL ROM: flexion mod loss,extension mod/severe loss,lateral flexion ,rotation mod loss. MMT:grossly 4/5 shoulder 4-/5. [employer] STRENGTH: 10# dynamoter. AROM: BUE WFL - Special Tests C/S Radiculapathy - Left Upper limb tension test: Negative C/S Radiculapathy - Right Upper limb tension test: Negative C/S Radiculapathy - Left Spurlings: Positive C/S Radiculapathy - Right Spurlings: Positive C/S Radiculapathy - Left Cervical distraction: Positive C/S Radiculapathy - Right Cervical distraction: Positive C/S Radiculapathy - Left Relief test: Positive C/S Radiculapathy - Right Relief test: Positive Sharp Micheal: Negative Vertebral Artery Test: Negative Alar Ligament Test: Negative - Goals Goal 1:: Independant with HEP Goal Time Frame: 4-6 Weeks Goal 2:: Inpendant with posture for ADL'S Goal Time Frame: 4-6 Weeks Goal 3:: Patienmt to decrease parathesai and symptoms in arms by 40% or greater. 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 Goal Time Frame: 4-6 Weeks Goal 5:: Patient to improve neck owestry score by 5 points. Goal Time Frame: 4-6 Weeks - Rehabilitation Potential Physical Therapy Diagnosis: * PRECAUTION :H/O OSTEOPOROSIS*. 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,pain with cervical ROM and intermttant parathesia in arms impairs function ADL'S Rehabilitation Potential: Good - Anticipated Interventions Patient/Client Instruction: Educate patient on: Condition, Plan of Care For the Purpose of:: To decrease pain, To increase ROM, To improve muscle performance and motor function, To improve ability to perform ADL's, To improve performance and independence with ADL's, To improve ability of physical actions for home/community/work/leisure, To improve health of tissue, To decrease soft tissue restriction, To increase flexibility/ROM, To improve ability to perform tasks related to life management Therapeutic Exercise to Include: Strength training, Body mechanics, Postural training, Flexibilty training, Active ROM For the Purpose of:: To decrease pain, To increase ROM, To improve muscle performance and motor function, To increase tolerance to activity/condition/p osition, To improve ability of physical actions for home/community/work/leisure, To improve health of tissue, To decrease soft tissue restriction, To increase flexibility/ROM, To improve ability to perform tasks related to life management TENS: Yes IF ES: Yes Cryotherapy (ice pack, ice massage): Yes Thermo therapy (hot pack): Yes For the Purpose of:: To decrease pain, To increase ROM, To improve health of tissue, To decrease soft tissue restriction Thank you for the opportunity to evaluate your patient. For Medicare and Medicare HMO plans, please review the plan of care and approve it. It will need to be FAXED BACK to us at [phone] for Medicare purposes. For Medicare only, by signing this I certify the plan of care. Please let me know if there are questions or concerns regarding this plan of care. Physician Signature: Date:
--- NOTE | 2018-11-08 10:25 | HP.PTDCSUM ---
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 Discharge Date: 11/08/18 Please see the following information for a summary of their discharge status. - Subjective Subjective: Patient was hospitalized due to difficulty . Parathesia better. - Pain Bilateral Shoulder Pain Intensity (Out of 10): 2 CERV SPINE Pain Intensity (Out of 10): 0 - Overall Improvement % Improvement: 50 - Objective Objective/Function: POSTURE: mild foward posture. NEURO: mild parathesia ,reflexes C5-6-7 04/29. AROM: cervical min loss ,lateral flexion /rotation mod loss,extension mod loss. - ANR ,-. PALPATION: tender UT/levator - Goals Goal 1:: Independant with HEP Goal Progress: Goal Met Goal 2:: Inpendant with posture for ADL'S Goal Progress: Goal Met Goal 3:: Patienmt to decrease parathesai and symptoms in arms by 40% or greater. Goal Progress: Goal Met Goal 4:: Patient increase head of talent management strength by 5 # to improve function. Goal Progress: Goal Met Goal 5:: Patient to improve neck owestry score by 5 points. Goal Progress: Goal Met - Plan Plan: D/C TO [facility] - D/C Information Discharge Comments: HEP If there are questions or concerns regarding this patient's physical therapy, please feel free to call me at [phone]. Thank you for the referral of this patient. Sincerely, Juan Manuel Culver, PT, Cert MDT, OCS
== END 2018-11-08 19:00 | disposition home or self-care (01) ==
LOC: PT 10:00
PROVIDERS: Family Provider Family Medicine; PCP Family Medicine; Referring Provider Nurse Practitioner Family; Visit Provider Nurse Practitioner Family
DX: R20.0 Anesthesia of skin (principal)
CPT/HCPCS: 97110; 97162; 97530

== ENCOUNTER → 2018-12-03 10:20 | Outpatient (CLI) | payer MEDICARE, SELFPAY ==
[2018-11-04 01:44] VITALS: BMI 32.6
[2018-12-03 12:36] LABS: AST(SGOT) 17 U/L (15-37); Alanine Aminotransfer ALT/SGPT 19 U/L (13-56); Cholesterol 123 mg/dL (200); High Density Lipoprotein 52 mg/dL; Triglycerides 111 mg/dL; Very Low Density Lipoprotein 22 mg/dL (5-40)
== END ==
PROVIDERS: Family Provider Family Medicine; PCP Family Medicine; Referring Provider Family Medicine; Visit Provider Family Medicine
DX: I25.10 Atherosclerotic heart disease of native coronary artery without angina pectoris (principal)
CPT/HCPCS: 36415; 80061; 84450; 84460

== ENCOUNTER → 2019-06-17 | Outpatient (CLI) | payer MEDICARE, SELFPAY ==
[2019-04-06 13:20] VITALS: BMI 33.6
[2019-06-17 13:11] LABS: Anion Gap 5 (5-15); BUN 21 mg/dL (7-18); BUN/Creat Ratio 27.3 RATIO (10-20); Calcium,Total 9.6 mg/dL (8.5-10.1); Chloride 109 mmol/L (98-107); Creatinine, Serum 0.77 mg/dL (0.55-1.02); EST Glomerular Filtration Rate 76 mL/min (>60); Est Glom Filt Rate - Afr Amer 92 mL/min (>60); Glucose 103 mg/dL (74-106); Potassium 3.5 mmol/L (3.5-5.1); Sodium Level 140 mmol/L (136-145)
== END | disposition home or self-care (01) ==
LOC: MFPLAB 10:33
PROVIDERS: PCP Family Medicine; Referring Provider Family Medicine; Visit Provider Family Medicine
DX: I10 Essential (primary) hypertension (principal)
CPT/HCPCS: 36415; 80048

== ENCOUNTER → 2019-07-05 11:51 | Outpatient (CLI) | payer MEDICARE, SELFPAY ==
[2019-04-06 13:20] VITALS: BMI 33.6
[2019-07-05 15:40] LABS: Absolute Neutrophil Count 4.7 X10^3/uL (2.0-7.7); Basophil# 0.06 X10^3/uL; Basophil% 0.8 % (0-1); Eosinophil# 0.27 X10^3/uL; Eosinophils% 3.4 % (0-5); Hematocrit 41.3 % (37-47); Hemoglobin 13.3 g/dL (12.0-15.0); Mean Corp Hgb Conc 32.2 g/dL (32-36); Mean Corpuscular Hgb 28.8 pg (27.0-32.0); Mean Corpuscular Volume 89.4 fL (81-99); Mean Platelet Vol. 10.8 fl (6.2-12.0); Monocyte# 0.94 X10^3/uL; NRBC Flagged by Analyzer 0 % (0-5); Neutrophil # 4.74 X10^3/uL (2.7-7.7); Neutrophil % 60.5 % (47-70); Platelet Count 219 K/mm3 (150-450); RBC Distribution Width CV 13.2 % (11.6-14.6); RBC Distribution Width SD 43.5 fl (35.1-43.9); Red Blood Count 4.62 M/mm3 (4.2-5.4); White Blood Count 7.8 K/mm3 (4.4-11.0)
[2019-07-05 16:03] LABS: ALB/GLOB Ratio 0.9 RATIO (0.9-2.4); AST(SGOT) 23 U/L (15-37); Alanine Aminotransfer ALT/SGPT 22 U/L (13-56); Albumin, Serum 3.4 g/dL (3.2-5.0); Alkaline Phosphatase 66 U/L (45-117); Anion Gap 6 (5-15); BUN 22 mg/dL (7-18); BUN/Creat Ratio 31.2 RATIO (10-20); Calcium,Total 9.2 mg/dL (8.5-10.1); Chloride 107 mmol/L (98-107); EST Glomerular Filtration Rate 85 mL/min (>60); Est Glom Filt Rate - Afr Amer 102 mL/min (>60); Globulin 3.9 g/dL (2.2-4.2); Glucose 87 mg/dL (74-106); Potassium 3.4 mmol/L (3.5-5.1); Protein, Total 7.3 g/dL (6.4-8.2); Sodium Level 139 mmol/L (136-145); Thyroid Stim Hormone (TSH) 1.33 uIU/mL (0.358-3.74)
== END ==
PROVIDERS: PCP Family Medicine; Referring Provider Family Medicine; Visit Provider Family Medicine
DX: R53.81 Other malaise (principal)
CPT/HCPCS: 36415; 80053; 84443; 85025

== ENCOUNTER → 2019-11-04 | Outpatient (CLI) | payer MEDICARE, SELFPAY ==
[2019-10-06 08:44] VITALS: BMI 33.2
--- NOTE | 2019-11-04 13:26 | RAD_ITS ---
STUDY: X-RAY - ABDOMEN/PELVIS REASON FOR EXAM: Female, 84 years old. Patient complains of lower abdomen pain that radiates into left side of abdomen and up into left side of chest TECHNIQUE: Two AP supine views of the abdomen and pelvis. COMPARISON: None. FINDINGS: Lung bases are clear. There is a subtle calcific appearance of the midepigastric region which may represent a hiatal hernia. There is no demonstrated free abdominal air. The visualized liver, spleen and kidneys are grossly normal in size and morphology. Normal soft tissue structures. There are diffuse degenerative changes of the visualized lumbar spine. Postoperative changes in the mid abdomen. There is kyphoplasty material at the level of L3. RAD/Abd Inc Decub and/or Erect IMPRESSION: Nonspecific bowel gas pattern. Small hiatal hernia. Electronically Signed: Elizabeth Pierce MD at 9:19 EDT Tel , Service support ,
--- NOTE | 2019-11-04 13:26 | RAD_ITS ---
STUDY: X-RAY CHEST REASON FOR EXAM: Female, 84 years old. Patient complains of lower abdomen pain that radiates into left side of abdomen and up into left side of chest TECHNIQUE: PA and lateral views of the chest. COMPARISON: November 04, 2019 chest x-ray FINDINGS: The lungs are clear and expanded. There is no demonstrated pleural abnormality. There is borderline cardiomegaly. Normal mediastinum and megan. Normal visualized pulmonary arteries. There is atherosclerotic calcification of the aortic arch with tortuosity. There are diffuse degenerative changes of the visualized thoracic spine. Normal visualized ribs, clavicles, and shoulders. There is no demonstrated abnormality of the visualized soft tissue structures of the upper abdomen. RAD/Chest PA and Lateral IMPRESSION: Degenerative changes, as described above. No demonstrated acute cardiopulmonary process. Electronically Signed: Elizabeth Pierce MD at 9:20 EDT Tel , Service support ,
[2019-11-04 17:42] LABS: ALB/GLOB Ratio 0.8 RATIO (0.9-2.4); AST(SGOT) 18 U/L (15-37); Alanine Aminotransfer ALT/SGPT 20 U/L (13-56); Albumin, Serum 3.2 g/dL (3.2-5.0); Alkaline Phosphatase 74 U/L (45-117); Anion Gap 8 (5-15); BUN 24 mg/dL (7-18); BUN/Creat Ratio 26.9 RATIO (10-20); Calcium,Total 9.1 mg/dL (8.5-10.1); Chloride 102 mmol/L (98-107); Creatinine, Serum 0.89 mg/dL (0.55-1.02); EST Glomerular Filtration Rate 64 mL/min (>60); Est Glom Filt Rate - Afr Amer 78 mL/min (>60); Globulin 3.9 g/dL (2.2-4.2); Glucose 84 mg/dL (74-106); Lipase 183 U/L (73-393); Potassium 3.6 mmol/L (3.5-5.1); Protein, Total 7.1 g/dL (6.4-8.2); Sodium Level 137 mmol/L (136-145)
[2019-11-04 17:56] LABS: Absolute Lymphocyte Count 1.84 X10^3/uL (0.83-4.51); Absolute Neutrophil Count 3.3 X10^3/uL (2.0-7.7); Basophil# 0.03 X10^3/uL; Basophil% 0.5 % (0-1); Eosinophil# 0.25 X10^3/uL; Hemoglobin 13.2 g/dL (12.0-15.0); Lymphocyte # 1.84 X10^3/ul (4.0); Lymphocyte % 29.6 % (19-41); Mean Corp Hgb Conc 32.2 g/dL (32-36); Mean Corpuscular Hgb 29.7 pg (27.0-32.0); Mean Corpuscular Volume 92.3 fL (81-99); Mean Platelet Vol. 10.7 fl (6.2-12.0); Monocyte# 0.75 X10^3/uL; Monocyte% 12.1 % (0-10); NRBC Flagged by Analyzer 0 % (0-5); Neutrophil # 3.33 X10^3/uL (2.7-7.7); Neutrophil % 53.5 % (47-70); Platelet Count 172 K/mm3 (150-450); RBC Distribution Width CV 13.1 % (11.6-14.6); RBC Distribution Width SD 43.9 fl (35.1-43.9); Red Blood Count 4.44 M/mm3 (4.2-5.4); White Blood Count 6.2 K/mm3 (4.4-11.0)
== END | disposition home or self-care (01) ==
LOC: MTLAB 13:23
PROVIDERS: PCP Family Medicine; Referring Provider Family Medicine; Visit Provider Family Medicine
DX: R10.84 Generalized abdominal pain (principal); R52 Pain, unspecified
CPT/HCPCS: 71046; 74019; 80053; 83690; 85025; 86140

== ENCOUNTER → 2019-11-07 | Outpatient (CLI) | payer MEDICARE, SELFPAY ==
[2019-10-06 08:44] VITALS: BMI 33.2
[2019-11-07 10:33] LABS: Erythrocyte Sedimentation Rate 18 mm/hr (0-30)
[2019-11-07 10:54] LABS: CRP 6.18 mg/L (0.0-3.0); Rheumatoid Factor < 10.0 IU/mL (<15)
[2019-11-09 02:33] LABS: PROEL- Albumin 3.1; PROEL- Alpha-1 Globulin 0.3; PROEL- Alpha-2 Globulin 1.1; PROEL- Beta Globulin 0.9; PROEL- Gamma Globulin 0.9; PROEL- TOTAL PROTEIN 6.4
[2019-11-09 02:34] LABS: PROEL- A/G Ratio 0.9; PROEL- Globulin, Total 3.3
[2019-11-09 02:40] LABS: Anti-Nuclear Antibody Test POSITIVE
[2019-11-10 14:08] LABS: PROELU- Albumin, Urine 36.6 % (.); PROELU- Alpha-1-Globulin,Ur 3.4 % (.); PROELU- Alpha-2-Globulin,Ur 8.7 % (.); PROELU- Beta Globulin, Ur 26.2 % (.); PROELU- Gamma Globulin, Ur 25.1 % (.); Total Protein, Ur 23.1 mg/dL (Not Estab.)
[2019-11-11 01:06] LABS: PROELU- M-Spike, Ur 0 % (Not Observed)
== END | disposition home or self-care (01) ==
LOC: MFPLAB 09:25
PROVIDERS: PCP Family Medicine; Referring Provider Family Medicine; Visit Provider Family Medicine
DX: M35.3 Polymyalgia rheumatica (principal)
CPT/HCPCS: 36415; 84165; 84166; 85652; 86038; 86140; 86431

== ENCOUNTER → 2019-11-21 | Outpatient (CLI) | payer MEDICARE, SELFPAY ==
[2019-10-06 08:44] VITALS: BMI 33.2
--- NOTE | 2019-11-21 09:00 | NM_ITS ---
CLINICAL: 84-year-old female with reported history of diffuse cervical-lumbar spine pain. WHOLE BODY 99m Tc MDP RADIONUCLIDE BONE SCINTIGRAPHY COMPARISON: Plain film radiograph reports thoracic and lumbar spine 01/13/2018 FINDINGS: Following the intravenous administration of 25.4 mCi of 99m Tc MDP, whole body bone images reveal: 1. Increased radiopharmaceutical concentration is identified in the mid cervical spine posteriorly on the right, lower cervical spine posteriorly on the left, the eighth-10th thoracic vertebra posteriorly on the right, second and third lumbar vertebra posteriorly on the left, fourth lumbar vertebra posteriorly on the right, acromioclavicular and sternoclavicular compartments of both shoulders, glenohumeral compartment of the right shoulder, the left wrist, right knee. 2. The remaining skeletal structures are scintigraphically unremarkable with normal-appearing renal images and urinary bladder activity identified. The presumably asymptomatic left knee arthroplasty demonstrates mild increased uptake noted in the medial and lateral tibial components most consistent with normal postsurgical change. NM/Bone Scan Whole Body IMPRESSION: 1. Enhanced tracer distribution described in the cervical, thoracic and lumbar spine, shoulders bilaterally, left wrist and right knee is most consistent with degenerative arthritis. 2. There is no definitive scintigraphic evidence of trauma-fracture on the current examination. Electronically Signed: Jaleel Patrick DO at 22:07 EDT Tel , Service support ,
== END | disposition home or self-care (01) ==
LOC: NM 08:57
PROVIDERS: PCP Family Medicine; Referring Provider Family Medicine; Visit Provider Family Medicine
DX: M54.2 Cervicalgia (principal); M54.5 Low back pain; M54.6 Pain in thoracic spine; G89.29 Other chronic pain
CPT/HCPCS: 78306

== ENCOUNTER → 2019-12-12 | Outpatient (CLI) | payer MEDICARE, SELFPAY ==
[2019-10-06 08:44] VITALS: BMI 33.2
[2019-12-12 12:42] LABS: AST(SGOT) 17 U/L (15-37); Alanine Aminotransfer ALT/SGPT 17 U/L (13-56); Anion Gap 5 (5-15); BUN 34 mg/dL (7-18); BUN/Creat Ratio 37.8 RATIO (10-20); Calcium,Total 9.4 mg/dL (8.5-10.1); Chloride 105 mmol/L (98-107); Cholesterol 141 mg/dL (200); EST Glomerular Filtration Rate 64 mL/min (>60); Est Glom Filt Rate - Afr Amer 77 mL/min (>60); Glucose 90 mg/dL (74-106); High Density Lipoprotein 65 mg/dL; Potassium 4.1 mmol/L (3.5-5.1); Sodium Level 137 mmol/L (136-145); Triglycerides 106 mg/dL; Very Low Density Lipoprotein 21 mg/dL (5-40)
== END | disposition home or self-care (01) ==
LOC: MFPLAB 10:06
PROVIDERS: PCP Family Medicine; Referring Provider Family Medicine; Visit Provider Family Medicine
DX: I10 Essential (primary) hypertension (principal); E78.5 Hyperlipidemia, unspecified
CPT/HCPCS: 36415; 80048; 80061; 84450; 84460

== ENCOUNTER → 2019-12-27 | Outpatient (CLI) | payer MEDICARE, SELFPAY ==
[2019-10-06 08:44] VITALS: BMI 33.2
[2019-12-27 11:14] LABS: EXAGEN MAILED SPECIMEN
[2019-12-27 11:59] LABS: Absolute Neutrophil Count 3.6 X10^3/uL (2.0-7.7); Basophil# 0.03 X10^3/uL; Basophil% 0.5 % (0-1); Eosinophil# 0.38 X10^3/uL; Eosinophils% 5.9 % (0-5); Hematocrit 38.2 % (37-47); Hemoglobin 12.7 g/dL (12.0-15.0); Lymphocyte % 26.3 % (19-41); Mean Corp Hgb Conc 33.2 g/dL (32-36); Mean Corpuscular Hgb 31.1 pg (27.0-32.0); Mean Corpuscular Volume 93.6 fL (81-99); Mean Platelet Vol. 10.1 fl (6.2-12.0); Monocyte# 0.79 X10^3/uL; Monocyte% 12.2 % (0-10); NRBC Flagged by Analyzer 0 % (0-5); Neutrophil # 3.55 X10^3/uL (2.7-7.7); Neutrophil % 54.9 % (47-70); Platelet Count 185 K/mm3 (150-450); RBC Distribution Width CV 13.2 % (11.6-14.6); RBC Distribution Width SD 44.6 fl (35.1-43.9); Red Blood Count 4.08 M/mm3 (4.2-5.4); White Blood Count 6.5 K/mm3 (4.4-11.0)
[2019-12-27 12:08] LABS: Color, Urine Yellow (Yellow); Glucose, Dipstick Normal (Normal); Ketone-Dipstick Negative (Negative); Leukocyte Esterase-Dipstick 500 /ul (Negative); Nitrite-Dipstick Negative (Negative); Occult Blood-Urine 150 /ul (Negative); Protein-Dipstick Negative (Negative); Urine Bilirubin Dipstick Negative (Negative); Urine Clarity Sl. Cloudy (Clear); Urine Urobilinogen Normal (Normal)
[2019-12-27 12:14] LABS: ALB/GLOB Ratio 0.9 RATIO (0.9-2.4); AST(SGOT) 18 U/L (15-37); Alanine Aminotransfer ALT/SGPT 17 U/L (13-56); Albumin, Serum 3.1 g/dL (3.2-5.0); Alkaline Phosphatase 73 U/L (45-117); Anion Gap 5 (5-15); BUN 23 mg/dL (7-18); BUN/Creat Ratio 29.9 RATIO (10-20); Calcium,Total 9.5 mg/dL (8.5-10.1); Chloride 105 mmol/L (98-107); Creatinine, Serum 0.77 mg/dL (0.55-1.02); EST Glomerular Filtration Rate 76 mL/min (>60); Est Glom Filt Rate - Afr Amer 92 mL/min (>60); Globulin 3.6 g/dL (2.2-4.2); Glucose 102 mg/dL (74-106); Protein, Total 6.7 g/dL (6.4-8.2); Sodium Level 137 mmol/L (136-145)
[2019-12-27 12:25] LABS: Protein, Urine (Random) 16.6 mg/dL (<11.9); Protein:Creat Ratio 284 mg/g CRE (0-200)
[2019-12-27 12:47] LABS: Hepatitis B Surface Antibody Non-Reactive; Hepatitis B Surface Antigen Non-Reactive (Nonreactive); Hepatitis C Antibody Non-Reactive (Nonreactive)
[2019-12-29 06:35] LABS: CCP IgG Antibodies 5 units (0-19)
== END | disposition home or self-care (01) ==
LOC: MFPLAB 10:12
PROVIDERS: PCP Family Medicine; Referring Provider Family Medicine; Visit Provider Internal Medicine Rheumatology
DX: M06.4 Inflammatory polyarthropathy (principal); M79.7 Fibromyalgia; M19.041 Primary osteoarthritis, right hand; M47.897 Other spondylosis, lumbosacral region; I10 Essential (primary) hypertension; E78.5 Hyperlipidemia, unspecified
CPT/HCPCS: 36415; 80053; 81002; 82570; 84156; 85025; 86200; 86706; 86803; 87340

== ENCOUNTER → 2020-02-10 | Outpatient (CLI) | payer MEDICARE, SELFPAY ==
[2019-10-06 08:44] VITALS: BMI 33.2
[2020-02-10 10:01] LABS: Absolute Lymphocyte Count 1.35 X10^3/uL (0.83-4.51); Absolute Neutrophil Count 2.5 X10^3/uL (2.0-7.7); Basophil# 0.03 X10^3/uL; Basophil% 0.6 % (0-1); Eosinophil# 0.16 X10^3/uL; Eosinophils% 3.4 % (0-5); Hematocrit 38.3 % (37-47); Hemoglobin 12.4 g/dL (12.0-15.0); Lymphocyte # 1.35 X10^3/ul (4.0); Lymphocyte % 28.9 % (19-41); Mean Corp Hgb Conc 32.4 g/dL (32-36); Mean Corpuscular Hgb 30.1 pg (27.0-32.0); Mean Platelet Vol. 10.1 fl (6.2-12.0); Monocyte# 0.64 X10^3/uL; Monocyte% 13.7 % (0-10); NRBC Flagged by Analyzer 0 % (0-5); Neutrophil # 2.48 X10^3/uL (2.7-7.7); Neutrophil % 53.2 % (47-70); Platelet Count 198 K/mm3 (150-450); RBC Distribution Width CV 12.7 % (11.6-14.6); RBC Distribution Width SD 42.5 fl (35.1-43.9); Red Blood Count 4.12 M/mm3 (4.2-5.4); White Blood Count 4.7 K/mm3 (4.4-11.0)
[2020-02-10 11:01] LABS: ALB/GLOB Ratio 0.9 RATIO (0.9-2.4); AST(SGOT) 21 U/L (15-37); Alanine Aminotransfer ALT/SGPT 21 U/L (13-56); Albumin, Serum 3.2 g/dL (3.2-5.0); Alkaline Phosphatase 66 U/L (45-117); Anion Gap 6 (5-15); BUN 26 mg/dL (7-18); BUN/Creat Ratio 31.6 RATIO (10-20); Calcium,Total 9.1 mg/dL (8.5-10.1); Chloride 109 mmol/L (98-107); Creatinine, Serum 0.82 mg/dL (0.55-1.02); EST Glomerular Filtration Rate 71 mL/min (>60); Est Glom Filt Rate - Afr Amer 85 mL/min (>60); Globulin 3.6 g/dL (2.2-4.2); Glucose 115 mg/dL (74-106); Potassium 3.6 mmol/L (3.5-5.1); Protein, Total 6.8 g/dL (6.4-8.2); Sodium Level 140 mmol/L (136-145)
== END | disposition home or self-care (01) ==
LOC: MFPLAB 08:53
PROVIDERS: PCP Family Medicine; Referring Provider Family Medicine; Visit Provider Internal Medicine Rheumatology
DX: M05.79 Rheumatoid arthritis with rheumatoid factor of multiple sites without organ or systems involvement (principal); M79.7 Fibromyalgia; M19.041 Primary osteoarthritis, right hand; M47.897 Other spondylosis, lumbosacral region; I10 Essential (primary) hypertension; E78.5 Hyperlipidemia, unspecified; Z79.899 Other long term (current) drug therapy
CPT/HCPCS: 36415; 80053; 85025

== ENCOUNTER 2020-03-12 11:00 | Outpatient (RCR) | payer MEDICARE, SELFPAY ==
[2019-10-06 08:44] VITALS: BMI 33.2
--- NOTE | 2020-02-14 09:00 | HP.PTEVAL ---
Patient's Visit Information BA GUADARRAMA is a 85 year old F referred to Physical Therapy by Dr. Leonid Jones MD with a diagnosis of BACK AND LEG PAIN. Date of Evaluation: 02/14/20 Physical Therapist: Julia Abdi PT, Cert MDT - Visit Plan Frequency: 2-3x /Week Duration: 4-6 Weeks Plan: AQUATIC THERAPY FOR PAIN RELIEF, POSTURE CORRECTION/STRENGTHENING, INSTRUCTION IN APPROPRIATE BODY MECHANICS AND ACTIVITY MODIFICATIONS. DLS STARTING WITH A NEUTRAL SPINE PROGRESSING ROM TOLERATED. LEONOR LE ROM, STRETCHING AND STRENGTHENING. HEP INSTRUCTION. - Subjective GOES BY SKIP. Work/Leisure: RETIRED. Present symptoms: LOW BACK PAIN AND LEONOR LEG PAIN. PATIENT DENIES LEONOR LE NUMBNESS AND TINGLING. STATES HER LEGS ARE ACHY. Present since: YEARS. Pain Scale: WORST 9/10, LEAST 4/10. Currently: 11/03. Commenced as a result of: NO APPARENT REASON OTHER THAN ARTHRITIS. Symptoms at onset: LOW BACK. Worse: STANDING TOO LONG, RIDING IN THE CAR TOO LONG, TOO WALKING TOO MUCH, BENDING, LIFTING AND TWISTING. Better: TYLONOL, HEAT, SITTING. Disturbed sleep: NOT FROM BACK OR LEG PAIN. Previous history/Previous treatment: CARL'S EVERY 3 MONTHS. VERTEBRAL PLASTY. NO CHIROPRACTOR. HAS HAD PT ON LAND AND IN THE WATER. Coughing/sneezing/straining: NO. Gait: LAST FALL WAS THIS SUMMER. STATES SHE USUALLY DOESN'T GO OUT OF HER HOME WITHOUT HER WALKER BECAUSE SHE TENDS TO LOSE HER BALANCE. STATES SHE FURNITURE WALKS IN THE HOUSE AND HAS A CANE IN THE HOUSE IF NEEDED. Difficulty initiating urinatin: NO. Accidents: NO. Unexplained weight loss: NO. Imaging: WHOLE BODY SCAN 11/21/19: MPRESSION: 1. Enhanced tracer distribution described in the cervical, thoracic and. lumbar spine, shoulders bilaterally, left wrist and right knee is most. consistent with degenerative arthritis. . 2. There is no definitive scintigraphic evidence of trauma-fracture on the. current examination. PMH: RA. LEFT TKR 2003. AND SEE BELOW. - Objective Sitting/Standing Posture: POOR. SLOUCHED IN SITTING. INCREASED TRUNK FLEXION AND L LAT SHIFT IN STANDING. Lordosis: REDUCED. Active Correction of posture: WORSE. Other Observations: THIS PATIENT AMBULATES INDEP'LY INTO PT TODAY WITH ROLLATOR. SHE IS ABLE TO TRANSFER SIT TO STAND INDEP'LY BUT IS UE DEPENDENT TO DO SO. PATIENT DOES NOT WALK WELL AT ALL WITHOUT HER WALKER. SHE MOVED AROUND THE TREATMENT ROOM WITHOUT AN ASSISTIVE DEVICE BUT SHE WAS REACHING FOR EXTERNAL SUPPORTS THE ENTIRE TIME AND WAS VERY BENT OVER. WITHOUT THE WALKER SHE TAKES VERY SHORT STEPS. GAIT IS MUCH IMPROVED WITH THE WALKER ALLOWING A MORE FLUID GAIT AND BETTER STRIDE LENGTH. Motor deficit: LEONOR LE WEAKNESS AND MMT'ING IS PAIN LIMITED BUT LEONOR LE STRENGTH IS GROSSLY 4-/5. Sensory deficit: LEONOR LE LIGHT TOUCH SENSATION APPEARS TO BE INTACT BUT PATIENT C/O LEONOR THIGH CALF SORENESS WITH TESTING. ROM deficit: VERY TIGHT LEONOR GASTROC SOLEUS COMPLEX'S. ALSO WITH TIGHT HIP FLEXORS AND HS'S. Reflexes: NT. Dural Signs: POSITIVE LEONOR LE'S. Lumbar mvmt loss: flex - DESIRE. ext - DESIRE. R SG - DESIRE. L SG - DESIRE. Core strength: POOR. Palpation: PATIENT IS VERY TENDER WITH LIGHT PALPATION OF HER LUMBOSACRAL REGIONS AND INTO LEONOR POSTERIOR HIP REGIONS. TREATMENT: NEUROMUSCULAR REEDUCATION - RETRAINING OF MVMT AND POSTURE FOR SITTING, LYING AND STANDING ACTIVITIES. - Goals Goal 1:: DECREASE C/O BACK AND LEG PAIN Goal Time Frame: 4-6 Weeks Goal 2:: IMPROVE LIFTING, SITTING, STANDING, TRAVEL AND HOMEMAKING FUNCTION Goal Time Frame: 4-6 Weeks Goal 3:: INSTRUCT IN PROPHYLAXIS Goal Time Frame: 4-6 Weeks - Anticipated Interventions Patient/Client Instruction: Educate patient on: Condition, Plan of Care, Risk Factors, Benefits of Fitness Program For the Purpose of:: To improve self management Therapeutic Exercise to Include: Strength training, Body mechanics, Postural training, Flexibilty training, Gait and locomotor training, Neuromotor development, In an aquatic setting, Dynamic Lumbar Stabilization For the Purpose of:: To decrease pain, To improve muscle performance and motor function, To increase tolerance to activity/condition/position, To improve ability of physical actions for home/community/work/leisure, To improve gait and locomotor functions Thank you for the opportunity to evaluate your patient. For Medicare and Medicare HMO plans, please review the plan of care and approve it. It will need to be FAXED BACK to us at [phone] for Medicare purposes. For Medicare only, by signing this I certify the plan of care. Please let me know if there are questions or concerns regarding this plan of care. Physician Signature: Date:
--- NOTE | 2020-03-12 11:29 | HP.PTDCSUM_ITS ---
It has been my pleasure to treat BA GUADARRAMA referred by Dr. Leonid oJnes MD, with the diagnosis of BACK AND LEG PAIN for a total of 8 visit(s). Discharge Date: 03/12/20 Please see the following information for a summary of their discharge status. Subjective: I DON'T FEEL BAD TODAY AT ALL. PATIENT REPORTS THERAPY HAS HELPED HER A LOT BUT SHE WANTS TO STOP PT NOW BECAUSE OF THE HOLIDAYS. STATES SHE HAS TO DEPEND ON OTHERS TO BRING HER AND IT IS TOO MUCH. REPORTS SHE IS DOING HER HOME EX'S AND THEY ARE HELPING. back Pain Intensity (Out of 10): 0 B LE Pain Intensity (Out of 10): 0 % Improvement: 50 Objective/Function: PATIENT WAS SEEN TODAY FOR RE-ASSESSMENT OF PROGRESS TOWARD THE SET PT GOALS AND THE NEED FOR FURTHER PHYSICAL THERAPY VS READINESS FOR DISCHARGE. PATIENT IS MAKING GOOD PROGRESS WITH PT WITH INCREASED LE STRENGTH, INCREASED LUMBAR FLEX ROM, DECREASED C/O PAIN AND DECREASED LOW BACK AND HIP TENDERNESS. SHE IS ALSO WALKING BETTER. SHE JUST DOESN'T FEEL SHE CAN KEEP COMING RIGHT NOW DUE TO THE HOLIDAYS. UPON EXAM TODAY: THIS PATIENT AMBULATES INDEP'LY INTO PT TODAY WITH ROLLATOR. SHE IS ABLE TO TRANSFER SIT TO STAND INDEP'LY NOW WITHOUT UE ASSIST. PATIENT IS NOW ABLE TO WALK A LITTLE BETTER WITHOUT HER WALKER. SHE MOVES AROUND THE TREATMENT ROOM WITHOUT HER ROLLATOR WITH SMALL STEPS BUT SHE IS MORE UP RIGHT AND ISN'T REACHING FOR EXTERNAL SUPPORTS LIKE SHE DID AT INITIAL EVAL. THIS PT STILL RECOMMENDS WALKER FOR SAFETY AND BETTER GAIT PATTERN. PATIENT IS AGREEABLE. Motor deficit: LEONOR LE WEAKNESS WITH MMT'ING IS GROSSLY 4/5. Sensory deficit: LEONOR LE LIGHT TOUCH SENSATION APPEARS TO BE INTACT AND DOES NOT COMPLAIN OF CALF TENDERNESS WITH TESTING THIS DATE. ROM deficit: TIGHT LEONOR GASTROC SOLEUS COMPLEX'S. ALSO WITH TIGHT HIP FLEXORS AND HS'S. Reflexes: NT. Dural Signs: NEGATIVE LEONOR LE'S. Lumbar mvmt loss: flex - MOD. ext - DESIRE. R SG - DESIRE. L SG - DESIRE. Core strength: POOR. 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 Goal 1:: DECREASE C/O BACK AND LEG PAIN Goal Progress: Goal Met Goal 2:: IMPROVE LIFTING, SITTING, STANDING, TRAVEL AND HOMEMAKING FUNCTION Goal Progress: Goal Met Goal 3:: INSTRUCT IN PROPHYLAXIS Goal Progress: Goal Met Plan: D/C AT PATIENTS REQUEST BUT PATIENT WOULD BE A GOOD CANDIDATE TO CONTINUE PT BASED ON PROGRESS MADE AND ROOM FOR FUTHER IMPROVEMENT. If there are questions or concerns regarding this patient's physical therapy, please feel free to call me at [phone]. Thank you for the referral of this patient. Sincerely, Julia Abdi, PT, Cert MDT
== END 2020-03-12 19:00 | disposition home or self-care (01) ==
LOC: PT 11:00
PROVIDERS: PCP Family Medicine; Referring Provider Anesthesiology Pain Medicine; Visit Provider Anesthesiology Pain Medicine
DX: M54.9 Dorsalgia, unspecified (principal); M79.606 Pain in leg, unspecified
CPT/HCPCS: 97112; 97113; 97162; 97164

== ENCOUNTER → 2020-04-09 08:48 | Outpatient (CLI) | payer MEDICARE, SELFPAY ==
[2019-10-06 08:44] VITALS: BMI 33.2
[2020-04-09 09:41] LABS: Absolute Lymphocyte Count 1.47 X10^3/uL (0.83-4.51); Absolute Neutrophil Count 3.6 X10^3/uL (2.0-7.7); Basophil# 0.04 X10^3/uL; Basophil% 0.7 % (0-1); Eosinophils% 1.7 % (0-5); Hematocrit 38.5 % (37-47); Hemoglobin 12.9 g/dL (12.0-15.0); Lymphocyte # 1.47 X10^3/ul (4.0); Lymphocyte % 24.3 % (19-41); Mean Corp Hgb Conc 33.5 g/dL (32-36); Mean Corpuscular Hgb 30.1 pg (27.0-32.0); Mean Platelet Vol. 10.1 fl (6.2-12.0); Monocyte# 0.79 X10^3/uL; Monocyte% 13.1 % (0-10); NRBC Flagged by Analyzer 0 % (0-5); Neutrophil # 3.62 X10^3/uL (2.7-7.7); Neutrophil % 59.7 % (47-70); Platelet Count 215 K/mm3 (150-450); RBC Distribution Width CV 13.2 % (11.6-14.6); RBC Distribution Width SD 42.9 fl (35.1-43.9); Red Blood Count 4.28 M/mm3 (4.2-5.4); White Blood Count 6.1 K/mm3 (4.4-11.0)
[2020-04-09 09:58] LABS: ALB/GLOB Ratio 0.9 RATIO (0.9-2.4); AST(SGOT) 20 U/L (15-37); Alanine Aminotransfer ALT/SGPT 19 U/L (13-56); Albumin, Serum 3.2 g/dL (3.2-5.0); Alkaline Phosphatase 72 U/L (45-117); Anion Gap 6 (5-15); BUN 28 mg/dL (7-18); BUN/Creat Ratio 34.1 RATIO (10-20); Calcium,Total 8.6 mg/dL (8.5-10.1); Chloride 106 mmol/L (98-107); Creatinine, Serum 0.82 mg/dL (0.55-1.02); EST Glomerular Filtration Rate 71 mL/min (>60); Est Glom Filt Rate - Afr Amer 85 mL/min (>60); Globulin 3.5 g/dL (2.2-4.2); Glucose 112 mg/dL (74-106); Potassium 3.4 mmol/L (3.5-5.1); Protein, Total 6.7 g/dL (6.4-8.2); Sodium Level 139 mmol/L (136-145)
== END ==
PROVIDERS: PCP Family Medicine; Visit Provider Internal Medicine Rheumatology
DX: M05.79 Rheumatoid arthritis with rheumatoid factor of multiple sites without organ or systems involvement (principal); M79.7 Fibromyalgia; M19.041 Primary osteoarthritis, right hand; M47.897 Other spondylosis, lumbosacral region; I10 Essential (primary) hypertension; E78.5 Hyperlipidemia, unspecified; Z79.899 Other long term (current) drug therapy
CPT/HCPCS: 36415; 80053; 85025

== ENCOUNTER → 2020-06-04 08:31 | Outpatient (CLI) | payer MEDICARE, SELFPAY ==
[2020-04-13 13:44] VITALS: BMI 33.0
[2020-06-04 12:28] LABS: Absolute Lymphocyte Count 1.24 X10^3/uL (0.83-4.51); Absolute Neutrophil Count 2.9 X10^3/uL (2.0-7.7); Basophil# 0.03 X10^3/uL; Basophil% 0.6 % (0-1); Hematocrit 37.1 % (37-47); Lymphocyte # 1.24 X10^3/ul (4.0); Lymphocyte % 24.9 % (19-41); Mean Corp Hgb Conc 32.3 g/dL (32-36); Mean Corpuscular Hgb 30.2 pg (27.0-32.0); Mean Corpuscular Volume 93.5 fL (81-99); Mean Platelet Vol. 10.1 fl (6.2-12.0); Monocyte# 0.66 X10^3/uL; Monocyte% 13.3 % (0-10); NRBC Flagged by Analyzer 0 % (0-5); Neutrophil # 2.93 X10^3/uL (2.7-7.7); Neutrophil % 58.8 % (47-70); Platelet Count 185 K/mm3 (150-450); RBC Distribution Width CV 13.9 % (11.6-14.6); RBC Distribution Width SD 47.1 fl (35.1-43.9); Red Blood Count 3.97 M/mm3 (4.2-5.4)
[2020-06-04 12:40] LABS: ALB/GLOB Ratio 0.9 RATIO (0.9-2.4); AST(SGOT) 19 U/L (15-37); Alanine Aminotransfer ALT/SGPT 19 U/L (13-56); Albumin, Serum 3.1 g/dL (3.2-5.0); Alkaline Phosphatase 69 U/L (45-117); Anion Gap 5 (5-15); BUN 28 mg/dL (7-18); BUN/Creat Ratio 33.2 RATIO (10-20); Calcium,Total 8.8 mg/dL (8.5-10.1); Chloride 108 mmol/L (98-107); Creatinine, Serum 0.84 mg/dL (0.55-1.02); EST Glomerular Filtration Rate 69 mL/min (>60); Est Glom Filt Rate - Afr Amer 83 mL/min (>60); Globulin 3.5 g/dL (2.2-4.2); Glucose 99 mg/dL (74-106); Potassium 3.4 mmol/L (3.5-5.1); Protein, Total 6.6 g/dL (6.4-8.2); Sodium Level 141 mmol/L (136-145)
== END ==
PROVIDERS: PCP Family Medicine; Visit Provider Internal Medicine Rheumatology
DX: M05.79 Rheumatoid arthritis with rheumatoid factor of multiple sites without organ or systems involvement (principal); M79.7 Fibromyalgia; M19.041 Primary osteoarthritis, right hand; M47.897 Other spondylosis, lumbosacral region; I10 Essential (primary) hypertension; E78.5 Hyperlipidemia, unspecified; Z79.899 Other long term (current) drug therapy
CPT/HCPCS: 36415; 80053; 85025

== ENCOUNTER → 2020-08-01 08:56 | Outpatient (CLI) | payer MEDICARE, SELFPAY ==
[2020-04-13 13:44] VITALS: BMI 33.0
[2020-08-01 10:20] LABS: Absolute Lymphocyte Count 1.19 X10^3/uL (0.83-4.51); Absolute Neutrophil Count 3.1 X10^3/uL (2.0-7.7); Basophil# 0.05 X10^3/uL; Eosinophil# 0.13 X10^3/uL; Eosinophils% 2.5 % (0-5); Hematocrit 37.2 % (37-47); Hemoglobin 12.2 g/dL (12.0-15.0); Lymphocyte # 1.19 X10^3/ul (4.0); Lymphocyte % 23.3 % (19-41); Mean Corp Hgb Conc 32.8 g/dL (32-36); Mean Corpuscular Volume 94.4 fL (81-99); Mean Platelet Vol. 10.2 fl (6.2-12.0); Monocyte# 0.65 X10^3/uL; Monocyte% 12.7 % (0-10); NRBC Flagged by Analyzer 0 % (0-5); Neutrophil # 3.07 X10^3/uL (2.7-7.7); Neutrophil % 60.1 % (47-70); Platelet Count 188 K/mm3 (150-450); RBC Distribution Width CV 13.2 % (11.6-14.6); RBC Distribution Width SD 45.4 fl (35.1-43.9); Red Blood Count 3.94 M/mm3 (4.2-5.4); White Blood Count 5.1 K/mm3 (4.4-11.0)
[2020-08-01 10:49] LABS: AST(SGOT) 18 U/L (15-37); Alanine Aminotransfer ALT/SGPT 21 U/L (13-56); Albumin, Serum 3.3 g/dL (3.2-5.0); Alkaline Phosphatase 66 U/L (45-117); Anion Gap 5 (5-15); BUN 22 mg/dL (7-18); BUN/Creat Ratio 32.1 RATIO (10-20); Calcium,Total 9.1 mg/dL (8.5-10.1); Chloride 107 mmol/L (98-107); Creatinine, Serum 0.69 mg/dL (0.55-1.02); EST Glomerular Filtration Rate 87 mL/min (>60); Est Glom Filt Rate - Afr Amer 105 mL/min (>60); Globulin 3.4 g/dL (2.2-4.2); Glucose 105 mg/dL (74-106); Potassium 3.6 mmol/L (3.5-5.1); Protein, Total 6.7 g/dL (6.4-8.2); Sodium Level 137 mmol/L (136-145)
== END ==
PROVIDERS: PCP Family Medicine; Referring Provider Family Medicine; Visit Provider Internal Medicine Rheumatology
DX: M05.79 Rheumatoid arthritis with rheumatoid factor of multiple sites without organ or systems involvement (principal); M79.7 Fibromyalgia; M19.041 Primary osteoarthritis, right hand; M47.897 Other spondylosis, lumbosacral region; I10 Essential (primary) hypertension; E78.5 Hyperlipidemia, unspecified; Z79.899 Other long term (current) drug therapy
CPT/HCPCS: 36415; 80053; 85025

== ENCOUNTER → 2020-10-15 08:43 | Outpatient (CLI) | payer MEDICARE, SELFPAY ==
[2020-10-04 08:58] VITALS: BMI 32.5
[2020-10-15 10:04] LABS: Absolute Lymphocyte Count 1.21 X10^3/uL (0.83-4.51); Absolute Neutrophil Count 2.3 X10^3/uL (2.0-7.7); Basophil# 0.04 X10^3/uL; Basophil% 0.9 % (0-1); Eosinophil# 0.09 X10^3/uL; Eosinophils% 2.1 % (0-5); Hematocrit 36.6 % (37-47); Hemoglobin 12.1 g/dL (12.0-15.0); Lymphocyte # 1.21 X10^3/ul (0.83-4.51); Mean Corp Hgb Conc 33.1 g/dL (32-36); Mean Corpuscular Volume 90.6 fL (81-99); Monocyte# 0.68 X10^3/uL; Monocyte% 15.7 % (0-10); NRBC Flagged by Analyzer 0 % (0-5); Neutrophil # 2.29 X10^3/uL (2.7-7.7); Neutrophil % 53.1 % (47-70); Platelet Count 208 K/mm3 (150-450); RBC Distribution Width CV 13.9 % (11.6-14.6); RBC Distribution Width SD 46.3 fl (35.1-43.9); Red Blood Count 4.04 M/mm3 (4.2-5.4); White Blood Count 4.3 K/mm3 (4.4-11.0)
[2020-10-15 11:05] LABS: AST(SGOT) 34 U/L (15-37); Alanine Aminotransfer ALT/SGPT 30 U/L (13-56); Albumin, Serum 3.3 g/dL (3.2-5.0); Alkaline Phosphatase 71 U/L (45-117); Anion Gap 8 (5-15); BUN 27 mg/dL (7-18); BUN/Creat Ratio 32.1 RATIO (10-20); Calcium,Total 8.7 mg/dL (8.5-10.1); Chloride 102 mmol/L (98-107); Creatinine, Serum 0.84 mg/dL (0.55-1.02); EST Glomerular Filtration Rate 69 mL/min (>60); Est Glom Filt Rate - Afr Amer 83 mL/min (>60); Globulin 3.3 g/dL (2.2-4.2); Glucose 112 mg/dL (74-106); Potassium 3.8 mmol/L (3.5-5.1); Protein, Total 6.6 g/dL (6.4-8.2); Sodium Level 137 mmol/L (136-145)
== END ==
PROVIDERS: PCP Family Medicine; Visit Provider Internal Medicine Rheumatology
DX: M05.70 Rheumatoid arthritis with rheumatoid factor of unspecified site without organ or systems involvement (principal); Z79.899 Other long term (current) drug therapy; M79.7 Fibromyalgia; M19.041 Primary osteoarthritis, right hand; M47.897 Other spondylosis, lumbosacral region; E78.5 Hyperlipidemia, unspecified; I10 Essential (primary) hypertension
CPT/HCPCS: 36415; 80053; 85025

== ENCOUNTER → 2021-01-14 08:38 | Outpatient (CLI) | payer MEDICARE, SELFPAY ==
[2021-01-14 09:59] LABS: Absolute Lymphocyte Count 1.19 X10^3/uL (0.83-4.51); Absolute Neutrophil Count 3.5 X10^3/uL (2.0-7.7); Basophil# 0.03 X10^3/uL; Basophil% 0.5 % (0-1); Eosinophil# 0.12 X10^3/uL; Eosinophils% 2.2 % (0-5); Hematocrit 35.9 % (37-47); Lymphocyte # 1.19 X10^3/ul (0.83-4.51); Lymphocyte % 21.6 % (19-41); Mean Corp Hgb Conc 33.4 g/dL (32-36); Mean Corpuscular Hgb 30.6 pg (27.0-32.0); Mean Corpuscular Volume 91.6 fL (81-99); Mean Platelet Vol. 10.2 fl (6.2-12.0); Monocyte# 0.68 X10^3/uL; Monocyte% 12.3 % (0-10); NRBC Flagged by Analyzer 0 % (0-5); Neutrophil # 3.47 X10^3/uL (2.7-7.7); Platelet Count 180 K/mm3 (150-450); RBC Distribution Width CV 13.7 % (11.6-14.6); RBC Distribution Width SD 45.6 fl (35.1-43.9); Red Blood Count 3.92 M/mm3 (4.2-5.4); White Blood Count 5.5 K/mm3 (4.4-11.0)
[2021-01-14 10:45] LABS: ALB/GLOB Ratio 0.8 RATIO (0.9-2.4); AST(SGOT) 23 U/L (15-37); Alanine Aminotransfer ALT/SGPT 24 U/L (13-56); Alkaline Phosphatase 75 U/L (45-117); Anion Gap 6 (5-15); BUN 24 mg/dL (7-18); Calcium,Total 9.1 mg/dL (8.5-10.1); Chloride 104 mmol/L (98-107); Creatinine, Serum 0.73 mg/dL (0.55-1.02); EST Glomerular Filtration Rate 81 mL/min (>60); Est Glom Filt Rate - Afr Amer 98 mL/min (>60); Globulin 3.7 g/dL (2.2-4.2); Glucose 111 mg/dL (74-106); Potassium 3.7 mmol/L (3.5-5.1); Protein, Total 6.7 g/dL (6.4-8.2); Sodium Level 138 mmol/L (136-145)
== END ==
PROVIDERS: PCP Family Medicine; Visit Provider Internal Medicine Rheumatology
DX: M05.70 Rheumatoid arthritis with rheumatoid factor of unspecified site without organ or systems involvement (principal); Z79.899 Other long term (current) drug therapy; M79.7 Fibromyalgia; M19.041 Primary osteoarthritis, right hand; M47.897 Other spondylosis, lumbosacral region; I10 Essential (primary) hypertension; E78.5 Hyperlipidemia, unspecified
CPT/HCPCS: 36415; 80053; 85025

== ENCOUNTER → 2021-04-09 08:26 | Outpatient (CLI) | payer MEDICARE, SELFPAY ==
[2021-04-09 10:10] LABS: Absolute Lymphocyte Count 0.86 X10^3/uL (0.83-4.51); Absolute Neutrophil Count 4.4 X10^3/uL (2.0-7.7); Basophil# 0.07 X10^3/uL; Eosinophil# 0.48 X10^3/uL; Eosinophils% 7.1 % (0-5); Hematocrit 34.8 % (37-47); Hemoglobin 11.7 g/dL (12.0-15.0); Lymphocyte # 0.86 X10^3/ul (0.83-4.51); Lymphocyte % 12.8 % (19-41); Mean Corp Hgb Conc 33.6 g/dL (32-36); Mean Corpuscular Hgb 30.2 pg (27.0-32.0); Mean Corpuscular Volume 89.9 fL (81-99); Mean Platelet Vol. 9.6 fl (6.2-12.0); Monocyte# 0.92 X10^3/uL; Monocyte% 13.6 % (0-10); NRBC Flagged by Analyzer 0 % (0-5); Neutrophil # 4.39 X10^3/uL (2.7-7.7); Neutrophil % 65.2 % (47-70); Platelet Count 256 K/mm3 (150-450); RBC Distribution Width CV 13.5 % (11.6-14.6); RBC Distribution Width SD 44.1 fl (35.1-43.9); Red Blood Count 3.87 M/mm3 (4.2-5.4); White Blood Count 6.7 K/mm3 (4.4-11.0)
[2021-04-09 10:23] LABS: ALB/GLOB Ratio 0.7 RATIO (0.9-2.4); AST(SGOT) 24 U/L (15-37); Alanine Aminotransfer ALT/SGPT 25 U/L (13-56); Albumin, Serum 2.8 g/dL (3.2-5.0); Alkaline Phosphatase 73 U/L (45-117); Anion Gap 9 (5-15); BUN 31 mg/dL (7-18); Calcium,Total 9.1 mg/dL (8.5-10.1); Chloride 107 mmol/L (98-107); Creatinine, Serum 0.86 mg/dL (0.55-1.02); EST Glomerular Filtration Rate 67 mL/min (>60); Est Glom Filt Rate - Afr Amer 81 mL/min (>60); Glucose 122 mg/dL (74-106); Potassium 3.5 mmol/L (3.5-5.1); Protein, Total 6.8 g/dL (6.4-8.2); Sodium Level 139 mmol/L (136-145)
== END ==
PROVIDERS: PCP Family Medicine; Visit Provider Internal Medicine Rheumatology
DX: M05.70 Rheumatoid arthritis with rheumatoid factor of unspecified site without organ or systems involvement (principal); M79.7 Fibromyalgia; M19.041 Primary osteoarthritis, right hand; M47.897 Other spondylosis, lumbosacral region; I10 Essential (primary) hypertension; E78.5 Hyperlipidemia, unspecified; Z79.899 Other long term (current) drug therapy
CPT/HCPCS: 36415; 80053; 85025

== ENCOUNTER 2021-07-01 08:45 | Outpatient (CLI) | payer MEDICARE, SELFPAY ==
[2021-07-01 10:31] LABS: Absolute Lymphocyte Count 1.19 X10^3/uL (0.83-4.51); Absolute Neutrophil Count 2.4 X10^3/uL (2.0-7.7); Basophil# 0.01 X10^3/uL; Basophil% 0.2 % (0-1); Eosinophils% 2.3 % (0-5); Hematocrit 36.5 % (37-47); Hemoglobin 12.1 g/dL (12.0-15.0); Lymphocyte # 1.19 X10^3/ul (0.83-4.51); Mean Corp Hgb Conc 33.2 g/dL (32-36); Mean Corpuscular Hgb 30.1 pg (27.0-32.0); Mean Corpuscular Volume 90.8 fL (81-99); Mean Platelet Vol. 9.7 fl (6.2-12.0); Monocyte% 15.9 % (0-10); NRBC Flagged by Analyzer 0 % (0-5); Neutrophil # 2.39 X10^3/uL (2.7-7.7); Neutrophil % 54.1 % (47-70); Platelet Count 232 K/mm3 (150-450); RBC Distribution Width CV 14.9 % (11.6-14.6); RBC Distribution Width SD 48.5 fl (35.1-43.9); Red Blood Count 4.02 M/mm3 (4.2-5.4); White Blood Count 4.4 K/mm3 (4.4-11.0)
[2021-07-01 10:45] LABS: ALB/GLOB Ratio 0.7 RATIO (0.9-2.4); AST(SGOT) 23 U/L (15-37); Alanine Aminotransfer ALT/SGPT 26 U/L (13-56); Albumin, Serum 2.8 g/dL (3.2-5.0); Alkaline Phosphatase 74 U/L (45-117); Anion Gap 5 (5-15); BUN 27 mg/dL (7-18); BUN/Creat Ratio 32.6 RATIO (10-20); Calcium,Total 8.7 mg/dL (8.5-10.1); Chloride 104 mmol/L (98-107); Creatinine, Serum 0.83 mg/dL (0.55-1.02); EST Glomerular Filtration Rate 70 mL/min (>60); Est Glom Filt Rate - Afr Amer 84 mL/min (>60); Globulin 3.9 g/dL (2.2-4.2); Glucose 123 mg/dL (74-106); Potassium 3.5 mmol/L (3.5-5.1); Protein, Total 6.7 g/dL (6.4-8.2); Sodium Level 138 mmol/L (136-145)
== END 2021-07-01 23:59 | disposition home or self-care (01) ==
LOC: MFPLAB 08:47
PROVIDERS: PCP Family Medicine; Visit Provider Internal Medicine Rheumatology
DX: M05.70 Rheumatoid arthritis with rheumatoid factor of unspecified site without organ or systems involvement (principal); M79.7 Fibromyalgia; M19.041 Primary osteoarthritis, right hand; M47.897 Other spondylosis, lumbosacral region; I10 Essential (primary) hypertension; E78.5 Hyperlipidemia, unspecified; Z79.899 Other long term (current) drug therapy
CPT/HCPCS: 36415; 80053; 85025

== ENCOUNTER → 2021-09-25 | Outpatient (CLI) | payer MEDICARE, SELFPAY ==
[2021-09-25 10:04] LABS: Absolute Lymphocyte Count 1.19 X10^3/uL (0.83-4.51); Absolute Neutrophil Count 3.5 X10^3/uL (2.0-7.7); Basophil# 0.04 X10^3/uL; Basophil% 0.7 % (0-1); Eosinophil# 0.12 X10^3/uL; Hematocrit 35.6 % (37-47); Hemoglobin 11.6 g/dL (12.0-15.0); Lymphocyte # 1.19 X10^3/ul (0.83-4.51); Lymphocyte % 20.3 % (19-41); Mean Corp Hgb Conc 32.6 g/dL (32-36); Mean Corpuscular Hgb 29.7 pg (27.0-32.0); Mean Platelet Vol. 10.3 fl (6.2-12.0); Monocyte# 0.98 X10^3/uL; Monocyte% 16.7 % (0-10); NRBC Flagged by Analyzer 0 % (0-5); Neutrophil # 3.53 X10^3/uL (2.7-7.7); Neutrophil % 60.1 % (47-70); Platelet Count 198 K/mm3 (150-450); RBC Distribution Width CV 15.3 % (11.6-14.6); RBC Distribution Width SD 51.1 fl (35.1-43.9); Red Blood Count 3.91 M/mm3 (4.2-5.4); White Blood Count 5.9 K/mm3 (4.4-11.0)
[2021-09-25 10:18] LABS: AST(SGOT) 20 U/L (15-37); Alanine Aminotransfer ALT/SGPT 20 U/L (13-56); Albumin, Serum 3.2 g/dL (3.2-5.0); Alkaline Phosphatase 70 U/L (45-117); Anion Gap 8 (5-15); BUN 30 mg/dL (7-18); BUN/Creat Ratio 39.8 RATIO (10-20); Calcium,Total 9.2 mg/dL (8.5-10.1); Chloride 105 mmol/L (98-107); Creatinine, Serum 0.75 mg/dL (0.55-1.02); EST Glomerular Filtration Rate 78 mL/min (>60); Est Glom Filt Rate - Afr Amer 94 mL/min (>60); Globulin 3.1 g/dL (2.2-4.2); Glucose 111 mg/dL (74-106); Potassium 3.7 mmol/L (3.5-5.1); Protein, Total 6.3 g/dL (6.4-8.2); Sodium Level 140 mmol/L (136-145)
== END | disposition home or self-care (01) ==
PROVIDERS: PCP Family Medicine; Visit Provider Internal Medicine Rheumatology
DX: M05.70 Rheumatoid arthritis with rheumatoid factor of unspecified site without organ or systems involvement (principal); M79.7 Fibromyalgia; M19.041 Primary osteoarthritis, right hand; M47.897 Other spondylosis, lumbosacral region; I10 Essential (primary) hypertension
CPT/HCPCS: 36415; 80053; 85025

== ENCOUNTER 2021-09-30 09:21 | Emergency (ER) | payer MEDICARE, SELFPAY ==
[2021-09-30 09:23] VITALS: BP 154/66; PULSE 74; RESP 17; TEMP 36.7; O2SAT 97; BMI 32.3
--- NOTE | 2021-09-30 09:48 | CT_ITS ---
STUDY: CT BRAIN WITHOUT CONTRAST REASON FOR EXAM: Female, 86 years old. Paresthesias right side of head and arm RADIATION DOSAGE (If Supplied By Facility): CTDIvol = ( 44.99 ) mGy, DLP = ( 745.49 ) mGycm TECHNIQUE: Transaxial CT imaging of the brain was performed without administration of intravenous contrast material. Individualized dose optimization techniques were used for this CT. COMPARISON: Comparison is made with prior study dated 07/03/2016. FINDINGS: Normal soft tissue structures. Once again, the patient is status post prior left frontal craniotomy. There is mild cerebral atrophy with widening of the extra-axial spaces and ventricular dilatation. Normal white matter tracts of the cerebral hemispheres. Normal basal ganglia and thalami. Normal brainstem. Normal cerebellum. There is no intracranial hemorrhage. There are no findings of an acute ischemic infarction. Atherosclerotic calcification of the cavernous portions of the internal carotid arteries and vertebral arteries. Normal visualized paranasal sinuses. CT/Brain/Head without Contrast IMPRESSION: Chronic involutional changes of the brain. Electronically Signed: Israel Denton MD at 10:43 EDT ,
--- NOTE | 2021-09-30 09:50 | EDS_ITS ---
HPI History of Present Illness Chief Complaint: Neuro S/Sx Informant: patient Narrative Narrative: Patient presents with a sense of water moving over her skin that occurs on the mid right side of the head down to her chin on the top of her right shoulder and down her right arm. It is constant and has been there for about 10 days. It does not go down her torso or legs. It crosses the midline just slightly at the chin. There is no pain. There is no actual numbness. There is no weakness. No head injury. She states occasionally she gets a headache and will take Tylenol and that will resolve it. But this is not new or different or changed. No new medicines. She saw her physician this past week. Blood work was done which I have reviewed. Her blood work was relatively unremarkable. Her potassium and calcium were also normal. Patient has an MRI s cheduled but was told that if it continues or feel any worse to come into the emergency department. She has not noted any balance issues. She uses a walker and this is not changed her use of the walker in any way. She is still doing quilting and will do that as normal. She states if she quits for a long time she gets some numbness in her hands that makes her stop but then she can restart later. This is also not new. [facility] Medical History Arthritis Back pain Brain tumor Chest pressure Essential hypertension Hemorrhoids Incontinence Limb weakness Pure hypercholesterolemia Rheumatoid arthritis Shoulder pain Syncope Home Medications aspirin 81 mg PO DAILY@0800 11/10/13 [History Last Taken Unknown] calcium citrate-vitamin D3 2 ea PO PRN PRN 11/10/13 [History Last Taken Unknown] hydrochlorothiazide 25 mg PO DAILY 11/10/13 [History Last Taken Unknown] lisinopril 10 mg PO DAILY 11/10/13 [History Last Taken Unknown] atorvastatin 20 mg tablet 20 mg PO QHS 30 Days #30 tab 03/15/18 [History Last Taken Unknown] folic acid 1 mg tablet 1 mg PO DAILY 10/04/20 [History Last Taken Unknown] methotrexate sodium 2.5 mg tablet 25 mg PO QWEEK tab 07/12/21 [History Last Taken Unknown] Allergy/AdvReac Type Severity Reaction Status Date / Time amoxicillin [Amoxicillin] Allergy Swelling Verified 09/30/21 09:22 cephalexin Allergy Rash Verified 09/30/21 09:22 clindamycin Allergy Hives Verified 09/30/21 09:22 codeine Allergy Upset Verified 09/30/21 09:22 Stomach cyclobenzaprine HCl Allergy Swelling Verified 09/30/21 09:22 [From Flexeril] diclofenac sodium Allergy Swelling Verified 09/30/21 09:22 [From Voltaren] dicyclomine Allergy Swelling Verified 09/30/21 09:22 hydroxyzine HCl [From Atarax] Allergy Swelling Verified 09/30/21 09:22 ketoprofen [From Oruvail] Allergy Swelling Verified 09/30/21 09:22 prednisone Allergy Hives Verified 09/30/21 09:22 pseudoephedrine HCl Allergy Other Verified 09/30/21 09:22 [From Sudafed] sulfabenzamide Allergy Anaphylaxis Verified 09/30/21 09:22 tramadol Allergy Unknown Verified 09/30/21 09:22 Family History Mother Heart disease Father Heart disease Other Cancer Surgical History History of appendectomy History of back surgery History of brain surgery History of breast biopsy History of knee replacement procedure of left knee Social History Smoking Status: Never smoker alcohol intake: never substance use type: does not use ROS ROS ED Constitutional Constitutional ED: Denies chills or fever(s) Eyes Eyes: Denies blurry vision, change in vision or diplopia ENT ENT ED: Reports other Details: See history of present illness. ; Denies rhinorrhea or sore throat Cardiovascular Cardiovascular: Denies chest pain Respiratory/Chest Respiratory/Chest: Denies cough or dyspnea Gastrointestinal Gastrointestinal: Denies abdominal pain, nausea or vomiting Genitourinary Genitourinary ED: Denies dysuria Musculoskeletal Musculoskeletal: Reports other Details: Patient has some soreness of her neck and back at times but none of this is different or changed to her at all new. These are not acute issues. ; Denies back pain or neck pain Integumentary Denies rash Neurologic Neurologic: Reports other Details: See history of present illness. ; Denies headache(s) or weakness Psychiatric Psychiatric: Denies anxiety or depression Endocrine Endocrinology: Denies polydipsia or polyuria Allergic/Immunologic Allergic/Immunologic ED: Denies urticaria EXAM Physical Exam Const Vital Signs: 09/30/21 09:23 Temperature 98.0 F Temperature Source Temporal Pulse Rate 74 Respiratory Rate 17 Blood Pressure 154/66 H Blood Pressure Mean 95 Pulse Ox 97 Oxygen Delivery Method Room Air Positive well nourished and well developed General Appearance ED: well developed and NAD; Negative for cyanotic or diaphoretic HEENT Reports moist mucous membranes HEENT Narrative: No tenderness asymmetry or rash. Range of motion is normal. Eyes PERRL and EOMs intact bilaterally Neck no lymphadenopathy and supple Neck Narrative: When I axially load her spine and lean her head to the right, she does get some increase in her symptoms. Resp normal respiratory effort and clear to auscultation bilaterally Cardio regular rate and regular rhythm GI normal to inspection, nondistended, normoactive bowel sounds and non-tender Palpation: soft Back/Spine Back/Spine Narrative: See above. Extremity normal to inspection Neuro oriented x3 Neuro Narrative: No gross sensory or motor change. Her symptoms are more of an additional sensation of water moving over the skin rather than a decrease in sensation or weakness. Sensorium / Orientation: alert Psych mental status grossly normal Skin no rashes or lesions noted MDM MDM MDM Narrative Medical decision making narrative: I reviewed the blood work that was already done as an outpatient by her physician. We did proceed with CT. CT shows some chronic changes but no acute. With 10 days of symptoms I think it is okay for discharge. She will follow-up with her physician and has the MRI already scheduled. Lab Data Attestation: I reviewed the patient's lab results. Radiography Diagnostic Testing: Clinical Impression(s) from Imaging Studies Brain CT 09/30/21 09:48 IMPRESSION: Chronic involutional changes of the brain. Electronically Signed: Israel Denton MD at 10:43 EDT , EKG Initial EKG: Comments: EKG done per protocol and read by me shows normal sinus rhythm with a rate of 68. No ectopy. No acute ST elevation or depression. WI interval, QRS duration and QTc normal Discharge Plan Triage Chief Complaint: Neuro S/Sx ED Provider: Laurent Hunt Dx/Rx/DC Orders Clinical Impression: Paresthesia of right arm, Facial paresthesia Instructions: ED Paraesthesias Prescriptions: No Action atorvastatin 20 mg tablet 20 mg PO QHS 30 Days Qty: 30 RF: 0 folic acid 1 mg tablet 1 mg PO DAILY RF: 0 methotrexate sodium 2.5 mg tablet 25 mg PO QWEEK RF: 0 lisinopril 10 MG tablet 10 mg PO DAILY RF: 0 aspirin 81 MG tablet,chewable 81 mg PO DAILY@0800 RF: 0 hydrochlorothiazide 25 MG tablet 25 mg PO DAILY RF: 0 calcium citrate-vitamin D3 1 EACH tablet 2 ea PO PRN PRN (Reason: Supplement Machine Maintenance) RF: 0 Primary Care Provider: Olga Hurst Referrals: Olga Hurst MD [Primary Care Provider] - As soon as possible Disposition Disposition: Home, Self Care
--- NOTE | 2021-09-30 09:55 | EKG12_ITS ---
Test Reason : NEURO Blood Pressure : / mmHG Vent. Rate : 068 BPM Atrial Rate : 068 BPM P-R Int : 174 ms QRS Dur : 080 ms QT Int : 404 ms P-R-T Axes : 041 008 052 degrees QTc Int : 429 ms Normal sinus rhythm Normal ECG Confirmed by NAYLA DONAHUE, TIANA ([id number]), make up editor DANDY HOSKINS ([id number]) on 10/01/2021 1:34:36 PM Referred By: PL Confirmed By:TIANA WINSLOW MD
[2021-09-30 10:00] VITALS: BMI 32.3
[2021-09-30 11:54] VITALS: BP 133/51; PULSE 65; RESP 16; O2SAT 100
== END 2021-09-30 11:59 | disposition home or self-care (01) ==
PROVIDERS: Emergency Provider Emergency Medicine; PCP Family Medicine; Visit Provider Emergency Medicine
DX: R20.2 Paresthesia of skin (principal); M06.9 Rheumatoid arthritis, unspecified; E78.00 Pure hypercholesterolemia, unspecified; I10 Essential (primary) hypertension; M19.90 Unspecified osteoarthritis, unspecified site; Z79.82 Long term (current) use of aspirin; Z79.899 Other long term (current) drug therapy
CPT/HCPCS: 70450; 93005; 99282

== ENCOUNTER → 2021-10-14 | Outpatient (CLI) | payer MEDICARE, SELFPAY ==
--- NOTE | 2021-10-14 07:25 | MRI_ITS ---
STUDY: MRI BRAIN WITH AND WITHOUT CONTRAST REASON FOR EXAM: Female, 86 years old. BENIGN NEOPLASM OF BRAIN, hx prior surgery; pt c/o strange sensation right side of face TECHNIQUE: Standardized multiplanar fat and water weighted pulse sequences were obtained. IV 15mL DOTAREM was administered for the contrast portion of the examination. COMPARISON: CT 10/02/2021 FINDINGS: There is mild cerebral atrophy with widening of the extra-axial spaces and ventricular dilatation. There are a limited number of small white matter hyperintensities, distributed throughout the deep white matter tracts of the cerebral hemispheres, consistent with mild chronic white matter ischemic changes. There is no evidence for recent intracranial ischemia or other cause of cytotoxic edema on diffusion weighted imaging (DWI). Normal T2* images of the brain without demonstrated susceptibility artifact. There is no demonstrated hemosiderin stain. Normal bilateral basal ganglia. Normal thalami. There is no extra-axial fluid accumulation. Normal flow voids within the major intracranial circulation suggesting patency by spin echo criteria. Normal venous enhancement. There is no enhancing intra-axial or extra-axial abnormality. Normal sella turcica, pituitary gland, infundibular stalk, optic chiasm and hypothalamus. Normal tectal plate and pineal gland. Normal midbrain, mike and medulla. Normal cerebellum. Normal basal cisterns. Normal bilateral temporal bones. Normal bilateral internal auditory canals. No demonstrated orbital abnormality, within the constraints of a routine brain study. Normal visualized paranasal sinuses. Healed left frontal craniotomy with metallic susceptibility and aspect distortion ratio artifact. Normal visualized soft tissue structures. Normal visualized upper cervical spine. MRI/Brain W/WO Contrast IMPRESSION: Involutional changes of the brain, as described above. Electronically Signed: Jaleel Napier MD at 12:38 EDT ,
== END | disposition home or self-care (01) ==
PROVIDERS: PCP Family Medicine; Referring Provider Family Medicine; Visit Provider Family Medicine
DX: D33.2 Benign neoplasm of brain, unspecified (principal)
CPT/HCPCS: 70553; A9575

== ENCOUNTER → 2021-12-09 | Outpatient (CLI) | payer MEDICARE, SELFPAY ==
[2021-12-09 15:12] LABS: Absolute Lymphocyte Count 1.13 X10^3/uL (0.83-4.51); Absolute Neutrophil Count 3.5 X10^3/uL (2.0-7.7); Basophil# 0.04 X10^3/uL; Basophil% 0.7 % (0-1); Eosinophil# 0.07 X10^3/uL; Eosinophils% 1.3 % (0-5); Hematocrit 36.5 % (37-47); Hemoglobin 11.9 g/dL (12.0-15.0); Lymphocyte # 1.13 X10^3/ul (0.83-4.51); Lymphocyte % 20.6 % (19-41); Mean Corp Hgb Conc 32.6 g/dL (32-36); Mean Corpuscular Hgb 30.3 pg (27.0-32.0); Mean Corpuscular Volume 92.9 fL (81-99); Mean Platelet Vol. 10.2 fl (6.2-12.0); Monocyte# 0.69 X10^3/uL; Monocyte% 12.6 % (0-10); NRBC Flagged by Analyzer 0 % (0-5); Neutrophil # 3.53 X10^3/uL (2.7-7.7); Neutrophil % 64.4 % (47-70); Platelet Count 219 K/mm3 (150-450); RBC Distribution Width CV 14.6 % (11.6-14.6); RBC Distribution Width SD 48.6 fl (35.1-43.9); Red Blood Count 3.93 M/mm3 (4.2-5.4); White Blood Count 5.5 K/mm3 (4.4-11.0)
[2021-12-09 15:31] LABS: AST(SGOT) 18 U/L (15-37); Alanine Aminotransfer ALT/SGPT 21 U/L (13-56); Albumin, Serum 3.1 g/dL (3.2-5.0); Alkaline Phosphatase 71 U/L (45-117); Anion Gap 7 (5-15); BUN 34 mg/dL (7-18); BUN/Creat Ratio 40.3 RATIO (10-20); Calcium,Total 9.1 mg/dL (8.5-10.1); Chloride 107 mmol/L (98-107); Creatinine, Serum 0.84 mg/dL (0.55-1.02); EST Glomerular Filtration Rate 68 mL/min (>60); Est Glom Filt Rate - Afr Amer 83 mL/min (>60); Glucose 116 mg/dL (74-106); Potassium 3.9 mmol/L (3.5-5.1); Protein, Total 6.1 g/dL (6.4-8.2); Sodium Level 140 mmol/L (136-145)
== END | disposition home or self-care (01) ==
LOC: MFPLAB 08:32
PROVIDERS: PCP Family Medicine; Referring Provider Family Medicine; Visit Provider Internal Medicine Rheumatology
DX: M05.70 Rheumatoid arthritis with rheumatoid factor of unspecified site without organ or systems involvement (principal); M79.7 Fibromyalgia; M19.041 Primary osteoarthritis, right hand; M47.897 Other spondylosis, lumbosacral region; I10 Essential (primary) hypertension; E78.5 Hyperlipidemia, unspecified; Z79.899 Other long term (current) drug therapy
CPT/HCPCS: 36415; 80053; 85025

== ENCOUNTER → 2022-02-17 | Outpatient (CLI) | payer MEDICARE, SELFPAY ==
[2022-02-17 12:28] LABS: Absolute Lymphocyte Count 1.82 X10^3/uL (0.83-4.51); Absolute Neutrophil Count 5.5 X10^3/uL (2.0-7.7); Basophil# 0.06 X10^3/uL; Basophil% 0.7 % (0-1); Eosinophil# 0.11 X10^3/uL; Eosinophils% 1.3 % (0-5); Hematocrit 38.1 % (37-47); Hemoglobin 12.6 g/dL (12.0-15.0); Lymphocyte # 1.82 X10^3/ul (0.83-4.51); Lymphocyte % 21.6 % (19-41); Mean Corp Hgb Conc 33.1 g/dL (32-36); Mean Corpuscular Hgb 29.6 pg (27.0-32.0); Mean Corpuscular Volume 89.6 fL (81-99); Monocyte# 0.95 X10^3/uL; Monocyte% 11.3 % (0-10); NRBC Flagged by Analyzer 0 % (0-5); Neutrophil # 5.45 X10^3/uL (2.7-7.7); Neutrophil % 64.9 % (47-70); Platelet Count 238 K/mm3 (150-450); RBC Distribution Width CV 15.1 % (11.6-14.6); RBC Distribution Width SD 48.1 fl (35.1-43.9); Red Blood Count 4.25 M/mm3 (4.2-5.4); White Blood Count 8.4 K/mm3 (4.4-11.0)
[2022-02-17 12:40] LABS: Vitamin B12 611 pg/mL (211-911)
[2022-02-17 14:03] LABS: Hemoglobin A1c 6.3 % (3.8-5.6)
[2022-02-17 14:11] LABS: ALB/GLOB Ratio 1.1 RATIO (0.9-2.4); AST(SGOT) 18 U/L (15-37); Alanine Aminotransfer ALT/SGPT 23 U/L (13-56); Albumin, Serum 3.6 g/dL (3.2-5.0); Alkaline Phosphatase 79 U/L (45-117); Anion Gap 9 (5-15); BUN 34 mg/dL (7-18); BUN/Creat Ratio 40.8 RATIO (10-20); Calcium,Total 9.6 mg/dL (8.5-10.1); Chloride 104 mmol/L (98-107); Creatinine, Serum 0.83 mg/dL (0.55-1.02); EST Glomerular Filtration Rate 69 mL/min (>60); Est Glom Filt Rate - Afr Amer 84 mL/min (>60); Globulin 3.3 g/dL (2.2-4.2); Glucose 111 mg/dL (74-106); Potassium 3.8 mmol/L (3.5-5.1); Protein, Total 6.9 g/dL (6.4-8.2); Sodium Level 137 mmol/L (136-145)
[2022-02-17 14:47] LABS: Folates, (Folic Acid) > 100.00 ng/mL (3.1-55.4); Thyroid Stim Hormone (TSH) 1.31 uIU/mL (0.358-3.74)
[2022-02-20 04:07] LABS: Free Kappa Light Chains 30.1 mg/L (3.3-19.4); Free Lambda Light Chains 18.1 mg/L (5.7-26.3)
[2022-02-20 17:37] LABS: Vitamin B1, Thiamine 199.6 nmol/L (66.5-200.0)
== END | disposition home or self-care (01) ==
LOC: MFPLAB 10:32
PROVIDERS: Psychiatry & Neurology Neurology; PCP Family Medicine; Visit Provider Internal Medicine Rheumatology
DX: M05.70 Rheumatoid arthritis with rheumatoid factor of unspecified site without organ or systems involvement (principal); M79.7 Fibromyalgia; M19.041 Primary osteoarthritis, right hand; M47.897 Other spondylosis, lumbosacral region; I10 Essential (primary) hypertension; E78.5 Hyperlipidemia, unspecified; Z79.899 Other long term (current) drug therapy
CPT/HCPCS: 36415; 80053; 82607; 82746; 83036; 83883; 84425; 84443; 85025

== ENCOUNTER → 2022-05-30 | Outpatient (CLI) | payer MEDICARE, SELFPAY ==
[2022-05-30 09:58] LABS: Absolute Lymphocyte Count 1.65 X10^3/uL (0.83-4.51); Absolute Neutrophil Count 2.5 X10^3/uL (2.0-7.7); Basophil# 0.05 X10^3/uL; Eosinophils% 3.9 % (0-5); Hematocrit 36.6 % (37-47); Hemoglobin 11.5 g/dL (12.0-15.0); Lymphocyte # 1.65 X10^3/ul (0.83-4.51); Lymphocyte % 32.2 % (19-41); Mean Corp Hgb Conc 31.4 g/dL (32-36); Mean Corpuscular Hgb 28.4 pg (27.0-32.0); Mean Corpuscular Volume 90.4 fL (81-99); Mean Platelet Vol. 10.2 fl (6.2-12.0); Monocyte# 0.76 X10^3/uL; Monocyte% 14.8 % (0-10); NRBC Flagged by Analyzer 0 % (0-5); Neutrophil # 2.45 X10^3/uL (2.7-7.7); Neutrophil % 47.7 % (47-70); Platelet Count 192 K/mm3 (150-450); RBC Distribution Width CV 14.9 % (11.6-14.6); Red Blood Count 4.05 M/mm3 (4.2-5.4); White Blood Count 5.1 K/mm3 (4.4-11.0)
[2022-05-30 10:57] LABS: ALB/GLOB Ratio 1.1 RATIO (0.9-2.4); AST(SGOT) 23 U/L (15-37); Alanine Aminotransfer ALT/SGPT 17 U/L (13-56); Albumin, Serum 3.2 g/dL (3.2-5.0); Alkaline Phosphatase 67 U/L (45-117); Anion Gap 11 (5-15); BUN 30 mg/dL (7-18); BUN/Creat Ratio 36.1 RATIO (10-20); Calcium,Total 9.4 mg/dL (8.5-10.1); Chloride 106 mmol/L (98-107); Creatinine, Serum 0.83 mg/dL (0.55-1.02); EST Glomerular Filtration Rate 69 mL/min (>60); Est Glom Filt Rate - Afr Amer 84 mL/min (>60); Glucose 114 mg/dL (74-106); Potassium 4.1 mmol/L (3.5-5.1); Protein, Total 6.2 g/dL (6.4-8.2); Sodium Level 142 mmol/L (136-145)
== END | disposition home or self-care (01) ==
LOC: MFPLAB 08:30
PROVIDERS: PCP Family Medicine; Referring Provider Family Medicine; Visit Provider Internal Medicine Rheumatology
DX: M05.70 Rheumatoid arthritis with rheumatoid factor of unspecified site without organ or systems involvement (principal); M79.7 Fibromyalgia; M19.041 Primary osteoarthritis, right hand; M47.897 Other spondylosis, lumbosacral region; I10 Essential (primary) hypertension; E78.5 Hyperlipidemia, unspecified; Z79.899 Other long term (current) drug therapy
CPT/HCPCS: 36415; 80053; 85025

== ENCOUNTER → 2022-06-10 | Outpatient (CLI) | payer MEDICARE, SELFPAY ==
[2022-06-13 15:08] LABS: Albumin 3.4 g/dL (2.9-4.4); Alpha-1-Globulins 0.2 g/dL (0.0-0.4); Alpha-2-Globulins 0.9 g/dL (0.4-1.0); Gamma Globulin 0.9 g/dL (0.4-1.8); Immunoglobulin A 127 mg/dL (64-422); Immunoglobulin G 899 mg/dL (586-1602); Immunoglobulin M 167 mg/dL (26-217); PROEL- TOTAL PROTEIN 6.3 g/dL (6.0-8.5)
== END | disposition home or self-care (01) ==
LOC: MFPLAB 11:41
PROVIDERS: PCP Family Medicine; Referring Provider Family Medicine; Visit Provider Psychiatry & Neurology Neurology
DX: G62.9 Polyneuropathy, unspecified (principal)
CPT/HCPCS: 36415; 82784; 84165; 86334; 86335

== ENCOUNTER 2022-08-01 19:26 | Emergency (ER) | payer MEDICARE, SELFPAY ==
[2022-08-01 19:37] VITALS: BP 124/52; PULSE 78; RESP 26; TEMP 35.7; O2SAT 98; BMI 31.8
[2022-08-01 19:41] VITALS: BP 124/52; PULSE 78; RESP 26; TEMP 35.7; O2SAT 98
[2022-08-01 19:47] VITALS: O2SAT 98
--- NOTE | 2022-08-01 20:30 | RAD_ITS ---
INDICATION: covid, transient dyspnea EXAMINATION/TECHNIQUE: X-RAY - XR Chest 2 Views COMPARISON: 11/04/2019 FINDINGS: LINES/DEVICES: None. LUNGS: No consolidation, edema or effusion. No pneumothorax. MEDIASTINUM AND CARDIOVASCULAR STRUCTURES: Cardiac silhouette stable within normal limits. Retrocardiac hiatal hernia containing fluid level. BONES AND SOFT TISSUES: No acute changes. RAD/Chest PA and Lateral IMPRESSION: No radiographic evidence of acute cardiopulmonary disease. Electronically Signed: Lorenzo Santizo MD at 20:59 EDT ,
--- NOTE | 2022-08-01 20:30 | RAD_ITS ---
INDICATION: throat swelling/transient dyspnea EXAMINATION/TECHNIQUE: X-RAY - XR Neck Soft Tissue COMPARISON: None. FINDINGS: SOFT TISSUES: Unremarkable. No radiopaque foreign body. EPIGLOTTIS: No pathologic thickening or enlargement. PROXIMAL AIRWAY: Grossly patent. RAD/Neck for Soft Tissue IMPRESSION: Negative. Electronically Signed: Lorenzo Santizo MD at 21:00 EDT ,
--- NOTE | 2022-08-01 21:29 | ED.VIS.DYS ---
HPI History of Present Illness Chief Complaint: Shortness of Breath Informant: patient Associated Symptoms cough Chest Pain: Positive for None Narrative Narrative: Patient started having headaches 4 days ago. Subsequently she started having coughing, congestion, myalgias, fevers, she went to urgent care and had a COVID test that was positive and was started on molnupiravir. She took 2 doses yesterday, and 1 dose this morning so far. Other than feeling malaised, she has otherwise been doing okay until tonight, after dinner she sat down in her recliner and had some tea, and after this she was resting and she started having a coughing fit, she had trouble breathing because she was having trouble stopping coughing, and she felt like her throat was swelling and that she was choking. She did not vomit but she did gag and come close. After stopping coughing, she had persistent trouble breathing so she called her life alert and had EMS come to bring her to the hospital. They put some oxygen on her even though she was not hypoxic, upon arrival here she is off oxygen, not hypoxic, and she feels back to normal. She did not have any chest symptoms during any of this. [facility] Medical History Arthritis Back pain Brain tumor Chest pressure COVID-19 Essential hypertension Hemorrhoids Incontinence Limb weakness Pure hypercholesterolemia Rheumatoid arthritis Shoulder pain Syncope Home Medications aspirin 81 mg chewable tablet 81 mg PO DAILY@0800 heart health 11/10/13 [History Last Taken Unknown] calcium citrate 315 mg calcium-vitamin D3 6.25 mcg (250 unit) tablet 2 ea PO PRN PRN Supplement Legislative Assistant 11/10/13 [History Last Taken Unknown] hydrochlorothiazide 25 mg tablet 25 mg PO DAILY diuretic 11/10/13 [History Last Taken Unknown] lisinopril 10 mg tablet 10 mg PO DAILY blood pressure 11/10/13 [History Last Taken Unknown] atorvastatin 20 mg tablet 20 mg PO QHS cholesterol 30 days #30 tabs 03/15/18 [History Last Taken Unknown] folic acid 1 mg tablet 1 mg PO DAILY 10/04/20 [History Last Taken Unknown] methotrexate sodium 2.5 mg tablet 25 mg PO QWEEK 07/12/21 [History Last Taken Unknown] gabapentin 100 mg capsule 100 mg PO .Every evening #30 caps 06/10/22 [Rx Last Taken Unknown] molnupiravir 200 mg capsule (EUA) 800 mg PO Q12H 5 days #40 caps 07/31/22 [Rx Last Taken Unknown] Allergy/AdvReac Type Severity Reaction Status Date / Time amoxicillin [Amoxicillin] Allergy Swelling Verified 07/31/22 09:20 cephalexin Allergy Rash Verified 07/31/22 09:20 clindamycin Allergy Hives Verified 07/31/22 09:20 codeine Allergy Upset Verified 07/31/22 09:20 Stomach cyclobenzaprine HCl Allergy Swelling Verified 07/31/22 09:20 [From Flexeril] diclofenac sodium Allergy Swelling Verified 07/31/22 09:20 [From Voltaren] dicyclomine Allergy Swelling Verified 07/31/22 09:20 hydroxyzine HCl [From Atarax] Allergy Swelling Verified 07/31/22 09:20 ketoprofen [From Oruvail] Allergy Swelling Verified 07/31/22 09:20 prednisone Allergy Hives Verified 07/31/22 09:20 pseudoephedrine HCl Allergy Other Verified 07/31/22 09:20 [From Sudafed] sulfabenzamide Allergy Anaphylaxis Verified 07/31/22 09:20 tramadol Allergy Unknown Verified 07/31/22 09:20 Family History Mother Heart disease Father Heart disease Other Cancer Surgical History History of appendectomy History of back surgery History of brain surgery History of breast biopsy History of knee replacement procedure of left knee Social History Smoking Status: Never smoker second hand exposure: No alcohol intake: never substance use type: does not use what type of physical activity do you participate in: none wolf/muslim: Mandaen seatbelt use: always ROS ROS ED Constitutional Constitutional ED: Reports body ache(s), fatigue, fever(s), headache(s) and malaise Eyes Eyes: Denies change in vision or diplopia ENT ENT ED: Reports as per HPI and throat swelling; Denies rhinorrhea or sore throat Cardiovascular Cardiovascular: Denies chest pain or palpitations Respiratory/Chest Respiratory/Chest: Reports cough, dyspnea and dyspnea on exertion Gastrointestinal Gastrointestinal: Reports diarrhea; Denies abdominal pain, nausea or vomiting Genitourinary Genitourinary ED: Denies dysuria or hematuria Musculoskeletal Musculoskeletal: Denies back pain or neck pain Integumentary Denies abscess or rash Neurologic Neurologic: Reports headache(s); Denies paresthesias or weakness Psychiatric Psychiatric: Denies anxiety or suicidal thoughts EXAM Physical Exam Const Vital Signs: 08/01/22 19:37 08/01/22 19:41 08/01/22 19:47 Temperature 96.3 F L 96.3 F L Temperature Source Temporal Temporal Pulse Rate 78 78 Respiratory Rate 26 H 26 H Respiratory Effort Normal Respiratory Depth Normal Respiratory Pattern Normal Blood Pressure 124/52 H 124/52 H Blood Pressure Mean 76 76 Pulse Ox 98 98 Oxygen Delivery Method Room Air Room Air Room Air 08/01/22 21:59 08/01/22 22:02 08/01/22 22:03 Temperature Temperature Source Pulse Rate 66 66 67 Respiratory Rate 22 H 23 H 23 H Respiratory Effort Respiratory Depth Respiratory Pattern Blood Pressure 99/59 L 126/61 H 126/61 H Blood Pressure Mean 72 82 Pulse Ox 97 98 99 Oxygen Delivery Method Room Air Room Air Positive well nourished and well developed Constitutional Narrative: Well-appearing, no distress General Appearance ED: well developed and NAD HEENT Reports moist mucous membranes HEENT Narrative: Posterior oropharynx normal. No stridor. Voice unremarkable. normocephalic and atraumatic Eyes PERRL and EOMs intact bilaterally Neck full ROM, no lymphadenopathy and supple Resp normal respiratory effort Resp Narrative: Few Rales left base. Otherwise clear. Clears after patient coughs hard. Effort and Inspection: able to speak in complete sentences Cardio regular rate, regular rhythm and no murmurs Rate: Negative for tachycardic GI non-tender and non-distended Auscultation: normoactive bowel sounds Palpation: soft Back/Spine no CVA tenderness General Back: other FROM Extremity normal to inspection and no calf tenderness General Extremety ED: Negative for edema, pulses abnormal or tenderness General Extremity: Negative for edema or pulses abnormal Neuro oriented x3, CN's II-XII intact bilaterally and no sensory deficits noted Sensorium / Orientation: awake and alert Motor Exam: strength 5/5 throughout Psych mental status grossly normal Skin no rashes or lesions noted and no wounds MDM MDM MDM Narrative Medical decision making narrative: ClinicPatient's vital signs are normal and she is not hypoxic. She looks very well. Because of the transient Rales I did a two-view chest x-ray which on my interpretation shows no interstitial or airspace disease. Radiology is in agreement. Also, I obtained 2 view soft tissue neck x-ray to screen for retropharyngeal swelling/abscess, epiglottitis, or signs of a foreign body. These were also normal showing none of these on my interpretation, radiology in agreement. On reevaluation she is doing well, her vital signs are still normal and clinically she has developed no other symptoms. I reassured her, I do not think this is pulmonary embolus or a dangerous COVID complication. I think this was either laryngospasm or bronchospasm that was transient and uncomfortable but not dangerous, she is reassured, prophylactically given a dose of Decadron 6 mg just 1 time, and we discussed reasons to return. She is comfortable with that plan, reassured this was not a molnupiravir medication reaction, and she is safe to continue that. Radiography Diagnostic Testing: Clinical Impression(s) from Imaging Studies Chest X-Ray 08/01/22 20:30 IMPRESSION: No radiographic evidence of acute cardiopulmonary disease. Electronically Signed: Lorenoz Santizo MD at 20:59 EDT , Soft Tissue Neck X-Ray 08/01/22 20:30 IMPRESSION: Negative. Electronically Signed: Lorenzo Santizo MD at 21:00 EDT , Discharge Plan Triage Chief Complaint: Shortness of Breath ED Provider: Fred Blum Dx/Rx/DC Orders Clinical Impression: COVID-19, Laryngospasm Instructions: Coronavirus Disease 2019 (COVID-19): Caring for Yourself or Others, ED Bronchospasm (Adult) Prescriptions: No Action atorvastatin 20 mg tablet 20 mg PO QHS 30 Days Qty: 30 folic acid 1 mg tablet 1 mg PO DAILY methotrexate sodium 2.5 mg tablet 25 mg PO QWEEK gabapentin 100 mg capsule 100 mg PO .Every evening Qty: 30 9RF molnupiravir 200 mg capsule 800 mg PO Q12H 5 Days Qty: 40 0RF lisinopril 10 MG tablet 10 mg PO DAILY Label Comments: bp aspirin 81 MG tablet,chewable 81 mg PO DAILY@0800 Label Comments: heart health hydrochlorothiazide 25 MG tablet 25 mg PO DAILY Label Comments: bp calcium citrate-vitamin D3 1 EACH tablet 2 ea PO PRN PRN (Reason: Supplement Legislative Assistant) Label Comments: vitamin Primary Care Provider: Olga Hurst Referrals: Olga Hurst MD [Primary Care Provider] - As Needed (or ER if any other acute concerns) Disposition Disposition: Home, Self Care Discharge Date/Time: 08/01/22 22:10
[2022-08-01 21:59] VITALS: BP 99/59; PULSE 66; RESP 22; O2SAT 97
[2022-08-01 22:02] VITALS: BP 126/61; PULSE 66; RESP 23; O2SAT 98
[2022-08-01 22:03] VITALS: BP 126/61; PULSE 67; RESP 23; O2SAT 99
[2022-08-01] MEDS: dexAMETHasone 4 MG Tablet 6 MG PO (22:05)
== END 2022-08-01 22:10 | disposition home or self-care (01) ==
PROVIDERS: Emergency Provider Emergency Medicine; PCP Family Medicine; Visit Provider Emergency Medicine
DX: U07.1 COVID-19 (principal); J38.5 Laryngeal spasm; I10 Essential (primary) hypertension; E78.00 Pure hypercholesterolemia, unspecified; Z79.899 Other long term (current) drug therapy
CPT/HCPCS: 70360; 71046; 93005; 99284

== ENCOUNTER → 2022-08-28 | Outpatient (CLI) | payer MEDICARE, SELFPAY ==
[2022-08-28 10:27] LABS: Absolute Lymphocyte Count 1.03 X10^3/uL (0.83-4.51); Absolute Neutrophil Count 7.7 X10^3/uL (2.0-7.7); Basophil# 0.01 X10^3/uL; Basophil% 0.1 % (0-1); Hematocrit 34.3 % (37-47); Hemoglobin 11.1 g/dL (12.0-15.0); Lymphocyte # 1.03 X10^3/ul (0.83-4.51); Lymphocyte % 10.6 % (19-41); Mean Corp Hgb Conc 32.4 g/dL (32-36); Mean Corpuscular Hgb 27.7 pg (27.0-32.0); Mean Corpuscular Volume 85.5 fL (81-99); Mean Platelet Vol. 10.3 fl (6.2-12.0); Monocyte# 0.94 X10^3/uL; Monocyte% 9.7 % (0-10); NRBC Flagged by Analyzer 0 % (0-5); Neutrophil # 7.69 X10^3/uL (2.7-7.7); Neutrophil % 79.2 % (47-70); Platelet Count 217 K/mm3 (150-450); RBC Distribution Width CV 17.1 % (11.6-14.6); RBC Distribution Width SD 52.6 fl (35.1-43.9); Red Blood Count 4.01 M/mm3 (4.2-5.4); White Blood Count 9.7 K/mm3 (4.4-11.0)
[2022-08-28 11:15] LABS: ALB/GLOB Ratio 1.1 RATIO (0.9-2.4); AST(SGOT) 21 U/L (15-37); Alanine Aminotransfer ALT/SGPT 24 U/L (13-56); Albumin, Serum 3.1 g/dL (3.2-5.0); Alkaline Phosphatase 68 U/L (45-117); Anion Gap 10 (5-15); BUN 38 mg/dL (7-18); BUN/Creat Ratio 55.5 RATIO (10-20); Chloride 107 mmol/L (98-107); Creatinine, Serum 0.68 mg/dL (0.55-1.02); EST Glomerular Filtration Rate 87 mL/min (>60); Est Glom Filt Rate - Afr Amer 105 mL/min (>60); Globulin 2.9 g/dL (2.2-4.2); Glucose 103 mg/dL (74-106); Potassium 4.2 mmol/L (3.5-5.1); Sodium Level 141 mmol/L (136-145)
== END | disposition home or self-care (01) ==
LOC: MFPLAB 08:59
PROVIDERS: PCP Family Medicine; Visit Provider Internal Medicine Rheumatology
DX: M05.70 Rheumatoid arthritis with rheumatoid factor of unspecified site without organ or systems involvement (principal); M79.7 Fibromyalgia; M19.041 Primary osteoarthritis, right hand; M47.897 Other spondylosis, lumbosacral region; I10 Essential (primary) hypertension; E78.5 Hyperlipidemia, unspecified; Z79.899 Other long term (current) drug therapy
CPT/HCPCS: 36415; 80053; 85025

== ENCOUNTER → 2022-10-22 | Outpatient (CLI) | payer MEDICARE, SELFPAY ==
--- NOTE | 2022-10-22 16:09 | VDLE_ITS ---
Reason For Study: Rt Leg Swelling RIGHT LEFT GSV is normal. CFV is compressible, spontaneous, phasic, CFV is compressible, spontaneous, phasic, competent, and demonstrates normal competent and demonstrates normal augmentation. augmentation. FV is compressible, spontaneous, phasic, competent and demonstrates normal augmentation. POP V is compressible, spontaneous, phasic, competent and demonstrates normal augmentation. T/P Trunk is compressible. PTV is compressible. RT PerV is compressible. Procedure This is a venous duplex using B-mode, color flow and spectral Doppler. Exam performed in department. The exam was diagnostic. A preliminary report was called and/or faxed to Dr. Gomes / Denisha bunch. VL/Venous Duplex US, Unilateral Interpretation Summary Deep veins of the right lower extremity are patent and compressible segmentally . There is no evidence of right lower extremity deep vein thrombosis. Valvular competence yady ears intact within the proximal deep venous system on the right . The right great saphenous vein a ppears patent and compressible segmentally. The left common femoral vein is patent and compressib le . Ordering Physician: Diamond Gomes Referring Physician: Olga Hurst M.D. Performed By: Christiano Eng RVT
== END | disposition home or self-care (01) ==
LOC: CVS 16:08
PROVIDERS: PCP Family Medicine; Referring Provider Family Medicine; Visit Provider Family Medicine
DX: M79.661 Pain in right lower leg (principal)
CPT/HCPCS: 93971

== ENCOUNTER → 2022-11-12 | Outpatient (CLI) | payer MEDICARE, SELFPAY ==
[2022-11-12 10:13] LABS: Absolute Lymphocyte Count 0.86 X10^3/uL (0.83-4.51); Absolute Neutrophil Count 2.5 X10^3/uL (2.0-7.7); Basophil# 0.03 X10^3/uL; Basophil% 0.7 % (0-1); Eosinophil# 0.13 X10^3/uL; Hematocrit 33.9 % (37-47); Hemoglobin 10.3 g/dL (12.0-15.0); Lymphocyte # 0.86 X10^3/ul (0.83-4.51); Mean Corp Hgb Conc 30.4 g/dL (32-36); Mean Corpuscular Hgb 26.8 pg (27.0-32.0); Mean Corpuscular Volume 88.1 fL (81-99); Mean Platelet Vol. 10.5 fl (6.2-12.0); Monocyte# 0.75 X10^3/uL; Monocyte% 17.4 % (0-10); NRBC Flagged by Analyzer 0 % (0-5); Neutrophil # 2.53 X10^3/uL (2.7-7.7); Neutrophil % 58.7 % (47-70); Platelet Count 183 K/mm3 (150-450); RBC Distribution Width CV 16.5 % (11.6-14.6); RBC Distribution Width SD 53.1 fl (35.1-43.9); Red Blood Count 3.85 M/mm3 (4.2-5.4); White Blood Count 4.3 K/mm3 (4.4-11.0)
[2022-11-12 10:45] LABS: ALB/GLOB Ratio 0.8 RATIO (0.9-2.4); AST(SGOT) 18 U/L (15-37); Alanine Aminotransfer ALT/SGPT 17 U/L (13-56); Albumin, Serum 2.7 g/dL (3.2-5.0); Alkaline Phosphatase 67 U/L (45-117); Anion Gap 5 (5-15); BUN 24 mg/dL (7-18); BUN/Creat Ratio 34.9 RATIO (10-20); Calcium,Total 8.7 mg/dL (8.5-10.1); Chloride 110 mmol/L (98-107); Creatinine, Serum 0.69 mg/dL (0.55-1.02); EST Glomerular Filtration Rate 86 mL/min (>60); Est Glom Filt Rate - Afr Amer 104 mL/min (>60); Globulin 3.4 g/dL (2.2-4.2); Glucose 102 mg/dL (74-106); Potassium 4.2 mmol/L (3.5-5.1); Protein, Total 6.1 g/dL (6.4-8.2); Sodium Level 139 mmol/L (136-145)
== END | disposition home or self-care (01) ==
LOC: MFPLAB 08:52
PROVIDERS: PCP Family Medicine; Visit Provider Internal Medicine Rheumatology
DX: M05.70 Rheumatoid arthritis with rheumatoid factor of unspecified site without organ or systems involvement (principal); Z79.899 Other long term (current) drug therapy
CPT/HCPCS: 36415; 80053; 85025

== ENCOUNTER → 2022-11-18 | Outpatient (CLI) | payer MEDICARE, SELFPAY ==
[2022-11-18 10:37] LABS: Cholesterol 116 mg/dL (200); High Density Lipoprotein 55 mg/dL; Triglycerides 73 mg/dL; Very Low Density Lipoprotein 15 mg/dL (5-40)
== END | disposition home or self-care (01) ==
LOC: MFPLAB 08:56
PROVIDERS: PCP Family Medicine; Visit Provider Family Medicine
DX: I10 Essential (primary) hypertension (principal)
CPT/HCPCS: 36415; 80061

== ENCOUNTER → 2023-01-23 | Outpatient (CLI) | payer MEDICARE, SELFPAY | END | disposition home or self-care (01) | PROVIDERS: PCP Family Medicine; Visit Provider Family Medicine | DX: R30.9 Painful micturition, unspecified (principal) | CPT/HCPCS: 87086; 87088 ==

== ENCOUNTER → 2023-01-26 | Outpatient (CLI) | payer MEDICARE, SELFPAY ==
[2023-01-26 10:06] LABS: Absolute Lymphocyte Count 0.98 X10^3/uL (0.83-4.51); Absolute Neutrophil Count 1.9 X10^3/uL (2.0-7.7); Basophil# 0.05 X10^3/uL; Basophil% 1.4 % (0-1); Eosinophil# 0.15 X10^3/uL; Eosinophils% 4.1 % (0-5); Hematocrit 34.5 % (37-47); Hemoglobin 10.7 g/dL (12.0-15.0); Lymphocyte # 0.98 X10^3/ul (0.83-4.51); Lymphocyte % 26.8 % (19-41); Mean Corpuscular Hgb 27.4 pg (27.0-32.0); Mean Corpuscular Volume 88.2 fL (81-99); Mean Platelet Vol. 10.5 fl (6.2-12.0); Monocyte# 0.59 X10^3/uL; Monocyte% 16.1 % (0-10); NRBC Flagged by Analyzer 0 % (0-5); Neutrophil # 1.88 X10^3/uL (2.7-7.7); Neutrophil % 51.3 % (47-70); Platelet Count 209 K/mm3 (150-450); RBC Distribution Width CV 16.4 % (11.6-14.6); RBC Distribution Width SD 52.3 fl (35.1-43.9); Red Blood Count 3.91 M/mm3 (4.2-5.4); White Blood Count 3.7 K/mm3 (4.4-11.0)
[2023-01-26 10:17] LABS: ALB/GLOB Ratio 0.9 RATIO (0.9-2.4); AST(SGOT) 21 U/L (15-37); Alanine Aminotransfer ALT/SGPT 19 U/L (13-56); Albumin, Serum 3.1 g/dL (3.2-5.0); Alkaline Phosphatase 71 U/L (45-117); Anion Gap 8 (5-15); BUN 28 mg/dL (7-18); BUN/Creat Ratio 39.8 RATIO (10-20); Calcium,Total 8.9 mg/dL (8.5-10.1); Chloride 109 mmol/L (98-107); EST Glomerular Filtration Rate 84 mL/min (>60); Est Glom Filt Rate - Afr Amer 102 mL/min (>60); Globulin 3.4 g/dL (2.2-4.2); Glucose 107 mg/dL (74-106); Potassium 4.1 mmol/L (3.5-5.1); Protein, Total 6.5 g/dL (6.4-8.2); Sodium Level 141 mmol/L (136-145)
== END | disposition home or self-care (01) ==
LOC: MFPLAB 08:42
PROVIDERS: PCP Family Medicine; Visit Provider Internal Medicine Rheumatology
DX: M05.70 Rheumatoid arthritis with rheumatoid factor of unspecified site without organ or systems involvement (principal); M79.7 Fibromyalgia; Z79.899 Other long term (current) drug therapy
CPT/HCPCS: 36415; 80053; 85025

== ENCOUNTER → 2023-05-13 | Outpatient (CLI) | payer MEDICARE, SELFPAY ==
[2023-05-13 10:27] LABS: Absolute Lymphocyte Count 1.02 X10^3/uL (0.83-4.51); Absolute Neutrophil Count 2.3 X10^3/uL (2.0-7.7); Basophil# 0.07 X10^3/uL; Basophil% 1.5 % (0-1); Eosinophil# 0.25 X10^3/uL; Eosinophils% 5.5 % (0-5); Hematocrit 34.6 % (37-47); Hemoglobin 10.4 g/dL (12.0-15.0); Lymphocyte # 1.02 X10^3/ul (0.83-4.51); Lymphocyte % 22.5 % (19-41); Mean Corp Hgb Conc 30.1 g/dL (32-36); Mean Corpuscular Hgb 25.2 pg (27.0-32.0); Monocyte# 0.91 X10^3/uL; Monocyte% 20.1 % (0-10); NRBC Flagged by Analyzer 0 % (0-5); Neutrophil # 2.27 X10^3/uL (2.7-7.7); Neutrophil % 50.2 % (47-70); Platelet Count 190 K/mm3 (150-450); RBC Distribution Width CV 17.2 % (11.6-14.6); RBC Distribution Width SD 52.1 fl (35.1-43.9); Red Blood Count 4.12 M/mm3 (4.2-5.4); White Blood Count 4.5 K/mm3 (4.4-11.0)
[2023-05-13 11:04] LABS: ALB/GLOB Ratio 0.9 RATIO (0.9-2.4); AST(SGOT) 19 U/L (15-37); Alanine Aminotransfer ALT/SGPT 15 U/L (13-56); Albumin, Serum 2.9 g/dL (3.2-5.0); Alkaline Phosphatase 70 U/L (45-117); Anion Gap 5 (5-15); BUN 20 mg/dL (7-18); BUN/Creat Ratio 24.2 RATIO (10-20); Calcium,Total 9.1 mg/dL (8.5-10.1); Chloride 109 mmol/L (98-107); Creatinine, Serum 0.83 mg/dL (0.55-1.02); EST Glomerular Filtration Rate 70 mL/min (>60); Est Glom Filt Rate - Afr Amer 84 mL/min (>60); Globulin 3.1 g/dL (2.2-4.2); Glucose 104 mg/dL (74-106); Potassium 4.1 mmol/L (3.5-5.1); Sodium Level 139 mmol/L (136-145)
== END | disposition home or self-care (01) ==
LOC: MFPLAB 09:18
PROVIDERS: PCP Family Medicine; Visit Provider Internal Medicine Rheumatology
DX: M05.70 Rheumatoid arthritis with rheumatoid factor of unspecified site without organ or systems involvement (principal); M79.7 Fibromyalgia; Z79.899 Other long term (current) drug therapy
CPT/HCPCS: 36415; 80053; 85025

== ENCOUNTER 2023-08-02 14:13 | Emergency (ER) | payer MEDICARE, SELFPAY ==
[2023-08-02 14:14] VITALS: BP 118/53; PULSE 77; RESP 16; TEMP 36.3; O2SAT 97
--- NOTE | 2023-08-02 14:30 | EKG12_ITS ---
Test Reason : Blood Pressure : / mmHG Vent. Rate : 072 BPM Atrial Rate : 072 BPM P-R Int : 152 ms QRS Dur : 082 ms QT Int : 424 ms P-R-T Axes : 026 004 037 degrees QTc Int : 464 ms Normal sinus rhythm Normal ECG Confirmed by Bertin Sykes ([id number]), social media editor DANDY HOSKINS ([id number]) on 08/03/2023 11:09:16 AM Referred By: Confirmed By:Bertin Sykes
[2023-08-02] MEDS: Ipratropium/Albuterol Sulfate 3 ML AMPUL.NEB INHALATION (14:42)
[2023-08-02 14:48] VITALS: BMI 32.3
--- NOTE | 2023-08-02 14:50 | RAD_ITS ---
STUDY: XR Chest 2 Views 08/02/2023 2:56 PM REASON FOR EXAM: Female, 88 years old. cough COMPARISON: 08/01/2022 TECHNIQUE: XR Chest 2 Views FINDINGS: There is no demonstrated pleural abnormality. Enlarged heart size. Normal mediastinum. Normal megan. Prominent appearing increased interstitial lung markings. Normal visualized pulmonary arteries. There is atherosclerotic calcification of the aortic arch with tortuosity. There are diffuse degenerative changes of the visualized thoracic spine. There is degenerative osteoarthritis of the bilateral shoulders. There is a large hiatal hernia composed mostly of the fundus of the stomach. RAD/Chest PA and Lateral IMPRESSION: There are no acute findings. Electronically Signed: Denis Ceballos MD at 15:14 EDT ,
[2023-08-02 14:57] VITALS: PULSE 75; RESP 18
[2023-08-02 14:57] LABS: Absolute Lymphocyte Count 0.98 X10^3/uL (0.83-4.51); Absolute Neutrophil Count 3.1 X10^3/uL (2.0-7.7); Basophil# 0.03 X10^3/uL; Basophil% 0.6 % (0-1); Eosinophil# 0.21 X10^3/uL; Hematocrit 33.1 % (37-47); Lymphocyte # 0.98 X10^3/ul (0.83-4.51); Lymphocyte % 18.7 % (19-41); Mean Corp Hgb Conc 30.2 g/dL (32-36); Mean Corpuscular Hgb 24.8 pg (27.0-32.0); Mean Corpuscular Volume 82.1 fL (81-99); Mean Platelet Vol. 9.9 fl (6.2-12.0); Monocyte# 0.88 X10^3/uL; Monocyte% 16.8 % (0-10); NRBC Flagged by Analyzer 0 % (0-5); Neutrophil # 3.12 X10^3/uL (2.7-7.7); Neutrophil % 59.5 % (47-70); Platelet Count 191 K/mm3 (150-450); RBC Distribution Width CV 17.3 % (11.6-14.6); RBC Distribution Width SD 51.1 fl (35.1-43.9); Red Blood Count 4.03 M/mm3 (4.2-5.4); White Blood Count 5.2 K/mm3 (4.4-11.0)
--- NOTE | 2023-08-02 15:04 | EX.ED.DYSGE1 ---
HPI <ASHLEIGH Holden - Last Filed: 08/02/23 15:58> History of Present Illness Chief Complaint: General Illness Narrative Narrative: 88-year-old female with past medical history of hypertension, hyperlipidemia has had a productive cough for 3 days. This morning her chest felt tight so she went to the [facility] clinic. She states the provider listened to her heart or lungs and prescribed a Z-Mathew for pneumonia. She did not have any imaging done. She took the first dose around noon and an hour later felt lightheaded and had 2 episodes of diarrhea. She is concerned this is a medication allergic reaction since she has a lot of allergies. She denies fever or chills. She states her chest tightness has significantly lessened since this morning. She does not smoke or have a history of asthma or COPD. PFS <ASHLEIGH Holden - Last Filed: 08/02/23 15:58> [facility] Medical History Arthritis Back pain Brain tumor Chest pressure COVID-19 Essential hypertension Hemorrhoids Incontinence Limb weakness Pure hypercholesterolemia Rheumatoid arthritis Shoulder pain Syncope Home Medications aspirin 81 mg chewable tablet 81 mg PO DAILY@0800 [facility] 11/10/13 [History Last Taken Unknown] atorvastatin 20 mg tablet 20 mg PO QHS cholesterol 30 days #30 tabs 03/15/18 [History Last Taken Unknown] methotrexate sodium 2.5 mg tablet 25 mg PO QWEEK 07/12/21 [History Last Taken Unknown] calcium citrate 315 mg calcium-vitamin D3 6.25 mcg (250 unit) tablet 2 tab PO BID Supplement Lna 09/16/22 [History Last Taken Unknown] folic acid 1 mg tablet 2 mg PO DAILY 09/16/22 [History Last Taken Unknown] leucovorin calcium 15 mg tablet 15 mg PO QWEEK 09/16/22 [History Last Taken Unknown] lisinopril 10 mg tablet 10 mg PO BID blood pressure #180 tabs 10/01/22 [Rx Last Taken Unknown] loratadine 10 mg tablet 10 mg PO DAILY PRN nasal/sinus congestion/drainage #10 tabs 02/04/23 [Rx Last Taken Unknown] gabapentin 100 mg capsule 100 mg PO BID #60 caps 07/29/23 [Rx Last Taken Unknown] albuterol sulfate 90 mcg/actuation aerosol inhaler (Ventolin HFA) 2 puff inhalation Q4H PRN PRN Wheezing 30 days #6.7 grams 08/02/23 [Rx Last Taken Unknown] azithromycin 250 mg tablet (Zithromax Z-Mathew) See Rx Instructions PO .COMPLEX #6 tabs 08/02/23 [Rx Last Taken Unknown] doxycycline hyclate 100 mg tablet 100 mg PO BID #14 tabs 08/02/23 [Rx Last Taken Unknown] Allergy/AdvReac Type Severity Reaction Status Date / Time amoxicillin [Amoxicillin] Allergy Severe Swelling Verified 08/02/23 14:20 cyclobenzaprine HCl Allergy Severe Swelling Verified 08/02/23 14:20 [From Flexeril] diclofenac sodium Allergy Severe Swelling Verified 08/02/23 14:20 [From Voltaren] dicyclomine Allergy Severe Swelling Verified 08/02/23 14:20 ketoprofen [From Oruvail] Allergy Severe Swelling Verified 08/02/23 14:20 sulfabenzamide Allergy Severe Anaphylaxis Verified 08/02/23 14:20 tramadol Allergy Unknown Unknown Verified 08/02/23 14:20 hydroxyzine HCl [From Atarax] Allergy Swelling Verified 08/02/23 14:20 prednisone Allergy Hives Verified 08/02/23 14:20 pseudoephedrine HCl Allergy Other Verified 08/02/23 14:20 [From Sudafed] cephalexin AdvReac Severe Rash Verified 08/02/23 14:17 clindamycin AdvReac Severe Hives Verified 08/02/23 14:20 codeine AdvReac Severe Upset Verified 08/02/23 14:20 Stomach Family History Mother Heart disease Father Heart disease Other Cancer Surgical History History of appendectomy History of back surgery History of brain surgery History of breast biopsy History of knee replacement procedure of left knee Social History Smoking Status: Never smoker second hand exposure: No alcohol intake: never substance use type: does not use what type of physical activity do you participate in: none wolf/zoroastrianism: Restorationist seatbelt use: always ROS <ASHLEIGH Holden - Last Filed: 08/02/23 15:58> ROS ED ROS Narrative Constitutional: Negative for fever, chills, malaise. CVS: Positive for chest tightness. No palpitations. Respiratory: Positive for cough. Negative for shortness of breath. GI: Positive for diarrhea. Negative for abdominal pain, nausea, vomiting, constipation, melena, hematochezia. EXAM <ASHLEIGH Holden - Last Filed: 08/02/23 15:58> Physical Exam Narrative Exam Narrative: CONST: Patient sitting in no acute distress. EYES: Normal inspection. NECK: Normal inspection. RESP: No respiratory distress, expiratory wheezing in all lung bullard. CVS: Regular rate and rhythm, no murmur, no gallop. ABD: Soft and nontender, no guarding or rebound, nondistended. SKIN: Color normal, no rash, warm, dry, intact. EXTREMITIES: Normal appearance, no pedal edema. NEURO: Alert and answering questions appropriately. PSYCH: Normal affect. Const Vital Signs: 08/02/23 14:14 08/02/23 14:14 08/02/23 14:57 Temperature 97.4 F L Temperature Source Temporal Pulse Rate 77 75 Respiratory Rate 16 18 Respiratory Pattern Normal Normal Blood Pressure 118/53 L Blood Pressure Mean 74 Pulse Ox 97 Oxygen Delivery Method Room Air <Dr. Chadwick Marin DO - Last Filed: 08/02/23 16:04> Physical Exam Const Vital Signs: 08/02/23 14:14 08/02/23 14:14 08/02/23 14:57 Temperature 97.4 F L Temperature Source Temporal Pulse Rate 77 75 Respiratory Rate 16 18 Respiratory Pattern Normal Normal Blood Pressure 118/53 L Blood Pressure Mean 74 Pulse Ox 97 Oxygen Delivery Method Room Air MDM <ASHLEIGH Holden - Last Filed: 08/02/23 15:58> [facility] Narrative Medical decision making narrative: Patient has recent URI symptoms with chest tightness. She was prescribed Z-Mathew this morning from urgent care and states after taking it she felt lightheaded and had 2 episodes of diarrhea. She appears well and nontoxic. Vital signs are stable. Exam is notable for expiratory wheezing in all lung bullard so I ordered a DuoNeb. She does not smoke or have history of COPD. CBC shows normal white count of 5.2 and chronic anemia at 10.0. BMP is unremarkable. EKG is nonischemic and troponin is 7. CXR shows no acute process and viral swab is negative. I prescribed an albuterol inhaler and doxycycline. I will avoid prednisone as this is listed on her allergies. Patient saturations remained stable and she is appropriate for outpatient management. I discussed return precautions and she was discharged in stable condition. Lab Data Attestation: I reviewed the patient's lab results. Labs: Laboratory Results - last 24 hr 08/02/23 14:46 WBC 5.2 RBC 4.03 L Hgb 10.0 L Hct 33.1 L MCV 82.1 MCH 24.8 L MCHC 30.2 L RDW Std Deviation 51.1 H RDW Coeff of Lizbet 17.3 H Plt Count 191 MPV 9.9 Immature Gran % (Auto) 0.400 Neut % (Auto) 59.5 Lymph % (Auto) 18.7 L Haakon % (Auto) 16.8 H Eos % (Auto) 4.0 Baso % (Auto) 0.6 Absolute Neuts (auto) 3.1 Absolute Lymphs (auto) 0.98 Nucleated RBC % 0 Sodium 139 Potassium 3.9 Chloride 107 Carbon Dioxide 26.0 Anion Gap 6 BUN 23 H Creatinine 0.87 Estim Creat Clear Calc 45.50 Est GFR (MDRD) Af Amer 79 Est GFR (MDRD) Non-Af 66 BUN/Creatinine Ratio 26.4 H Glucose 103 Calcium 8.8 Troponin I High Sens 7 Radiography Diagnostic Testing: Clinical Impression(s) from Imaging Studies Chest X-Ray 08/02/23 14:50 IMPRESSION: There are no acute findings. Electronically Signed: Denis Ceballos MD at 15:14 EDT Reading Location ID and State: [facility] / [place] , Service support , ED attending interpretation of 2-view chest x-ray shows normal heart size, no acute infiltrate, edema, or effusion. <Dr. Chadwick Marin, DO - Last Filed: 08/02/23 16:04> [facility] Narrative Medical decision making narrative: Patient has recent URI symptoms with chest tightness. She was prescribed Z-Mathew this morning from urgent care and states after taking it she felt lightheaded and had 2 episodes of diarrhea. She appears well and nontoxic. Vital signs are stable. Exam is notable for expiratory wheezing in all lung bullard so I ordered a DuoNeb. She does not smoke or have history of COPD. CBC shows normal white count of 5.2 and chronic anemia at 10.0. BMP is unremarkable. EKG is nonischemic and troponin is 7. CXR shows no acute process and viral swab is negative. I prescribed an albuterol inhaler and doxycycline. I will avoid prednisone as this is listed on her allergies. Patient saturations remained stable and she is appropriate for outpatient management. I discussed return precautions and she was discharged in stable condition. This patient was seen with a PA/THERAPIST RRT Individually assessed they patient including history and physical. I have reviewed everything on the chart that is available and agree with the documentation provided by the PA/THERAPIST RRT including discussion about the assessment, treatment plan, discussion, and return precautions. Patient presenting with URI symptoms. States started Thursday. She was seen in urgent care and did not have a chest x-ray but did have viral testing she states that COVID-negative. She is placed on a Z-Mathew but had a reaction to this she believes. Vital signs are stable and she is afebrile. No trouble swallowing or breathing. She was given breathing treatments but we held off on steroids due to her allergy to prednisone and she has multiple allergies and she is concerned with taking medications. Blood work obtained to rule out cardiac etiology and her CBC shows normal blood cell count of 5.2. Hemoglobin 10.0. Platelets are normal at 191. Renal function electrolytes within normal limits. High-sensitivity troponin is 7. EKG on my interpretation showed a sinus rhythm at 72 bpm without sign of ischemic change or ectopy. At this point I feel the patient is stable for discharge home. COVID, influenza, RSV are negative. Patient was placed on albuterol and doxycycline as she has tolerated this in the past. Return precautions discussed. Lab Data Labs: Laboratory Results - last 24 hr 08/02/23 14:46 WBC 5.2 RBC 4.03 L Hgb 10.0 L Hct 33.1 L MCV 82.1 MCH 24.8 L MCHC 30.2 L RDW Std Deviation 51.1 H RDW Coeff of Lizbet 17.3 H Plt Count 191 MPV 9.9 Immature Gran % (Auto) 0.400 Neut % (Auto) 59.5 Lymph % (Auto) 18.7 L Haakon % (Auto) 16.8 H Eos % (Auto) 4.0 Baso % (Auto) 0.6 Absolute Neuts (auto) 3.1 Absolute Lymphs (auto) 0.98 Nucleated RBC % 0 Sodium 139 Potassium 3.9 Chloride 107 Carbon Dioxide 26.0 Anion Gap 6 BUN 23 H Creatinine 0.87 Estim Creat Clear Calc 45.50 Est GFR (MDRD) Af Amer 79 Est GFR (MDRD) Non-Af 66 BUN/Creatinine Ratio 26.4 H Glucose 103 Calcium 8.8 Troponin I High Sens 7 Radiography Diagnostic Testing: Clinical Impression(s) from Imaging Studies Chest X-Ray 08/02/23 14:50 IMPRESSION: There are no acute findings. Electronically Signed: Denis Ceballos MD at 15:14 EDT Reading Location ID and State: [facility] / [place] , Service support , Discharge Plan Triage Chief Complaint: General Illness ED Midlevel Provider: Jyoti Pearson ED Provider: Chadwick Marin Dx/Rx/DC Orders Clinical Impression: Acute bronchitis with bronchospasm Instructions: ED Bronchitis with Wheezing (Adult) Prescriptions: New albuterol sulfate [Ventolin HFA] 90 mcg/actuation HFA aerosol inhaler 2 puff inhalation Q4H PRN PRN (Reason: Wheezing) 30 Days Qty: 6.7 0RF doxycycline hyclate 100 mg tablet 100 mg PO BID Qty: 14 0RF No Action atorvastatin 20 mg tablet 20 mg PO QHS 30 Days Qty: 30 Hold Instructions: myalgias folic acid 1 mg tablet 2 mg PO DAILY methotrexate sodium 2.5 mg tablet 25 mg PO QWEEK loratadine 10 mg tablet 10 mg PO DAILY PRN (Reason: nasal/sinus congestion/drainage) Qty: 10 0RF leucovorin calcium 15 mg tablet 15 mg PO QWEEK Patient Comments: Take 1 Tablet(s) Oral once a week lisinopril 10 mg tablet 10 mg PO BID Qty: 180 3RF gabapentin 100 mg capsule 100 mg PO BID Qty: 60 5RF azithromycin [Zithromax Z-Mathew] 250 mg tablet See Rx Instructions PO .COMPLEX Qty: 6 0RF Rx Instructions: For 250 mg dose pack: take 500 mg today (day 1), then 250 mg for 4 days (days 2-5) PO aspirin 81 MG tablet,chewable 81 mg PO DAILY@0800 Patient Comments: heart health calcium citrate-vitamin D3 315 mg-6.25 mcg (250 unit) tablet 2 tab PO BID Patient Comments: vitamin Primary Care Provider: Olga Hurst Referrals: Olga Hurst MD [Primary Care Provider] - Activity Restrictions/Additional Instructions: I think you have a virus causing the cough. I prescribed an albuterol inhaler and doxycycline. You can stop taking the Z-Mathew. Please follow-up with your primary care doctor. Disposition Disposition: Home, Self Care
[2023-08-02 15:14] VITALS: BP 147/76; PULSE 91; RESP 14; TEMP 36.6; O2SAT 99
[2023-08-02 15:16] LABS: Anion Gap 6 (5-15); BUN 23 mg/dL (7-18); BUN/Creat Ratio 26.4 RATIO (10-20); Calcium,Total 8.8 mg/dL (8.5-10.1); Chloride 107 mmol/L (98-107); Creatinine, Serum 0.87 mg/dL (0.55-1.02); EST Glomerular Filtration Rate 66 mL/min (>60); Est Glom Filt Rate - Afr Amer 79 mL/min (>60); Glucose 103 mg/dL (74-106); Potassium 3.9 mmol/L (3.5-5.1); Sodium Level 139 mmol/L (136-145); Troponin-I HS 7 pg/mL (3.0-54.0)
== END 2023-08-02 16:10 | disposition home or self-care (01) ==
PROVIDERS: Physician Assistant; Emergency Provider Student in an Organized Health Care Education/Training Program; PCP Family Medicine; Visit Provider Student in an Organized Health Care Education/Training Program
DX: J20.9 Acute bronchitis, unspecified (principal); E78.00 Pure hypercholesterolemia, unspecified; D64.9 Anemia, unspecified; I10 Essential (primary) hypertension; R42 Dizziness and giddiness; T38.0X5A Adverse effect of glucocorticoids and synthetic analogues, initial encounter
CPT/HCPCS: 71046; 80048; 84484; 85025; 87631; 93005; 94640; 99283

== ENCOUNTER → 2023-08-12 | Outpatient (CLI) | payer MEDICARE, SELFPAY ==
[2023-08-12 10:38] LABS: Absolute Neutrophil Count 2.6 X10^3/uL (2.0-7.7); Basophil# 0.07 X10^3/uL; Basophil% 1.4 % (0-1); Eosinophil# 0.13 X10^3/uL; Eosinophils% 2.7 % (0-5); Hematocrit 30.9 % (37-47); Hemoglobin 9.3 g/dL (12.0-15.0); Lymphocyte % 24.8 % (19-41); Mean Corp Hgb Conc 30.1 g/dL (32-36); Mean Corpuscular Hgb 24.3 pg (27.0-32.0); Mean Corpuscular Volume 80.7 fL (81-99); Mean Platelet Vol. 10.6 fl (6.2-12.0); Monocyte# 0.86 X10^3/uL; Monocyte% 17.8 % (0-10); NRBC Flagged by Analyzer 0 % (0-5); Neutrophil # 2.56 X10^3/uL (2.7-7.7); Neutrophil % 53.1 % (47-70); Platelet Count 236 K/mm3 (150-450); RBC Distribution Width CV 17.7 % (11.6-14.6); RBC Distribution Width SD 50.8 fl (35.1-43.9); Red Blood Count 3.83 M/mm3 (4.2-5.4); White Blood Count 4.8 K/mm3 (4.4-11.0)
[2023-08-12 10:51] LABS: ALB/GLOB Ratio 0.9 RATIO (0.9-2.4); AST(SGOT) 22 U/L (15-37); Alanine Aminotransfer ALT/SGPT 14 U/L (13-56); Albumin, Serum 2.9 g/dL (3.2-5.0); Alkaline Phosphatase 72 U/L (45-117); Anion Gap 6 (5-15); BUN 20 mg/dL (7-18); BUN/Creat Ratio 24.4 RATIO (10-20); Calcium,Total 9.2 mg/dL (8.5-10.1); Chloride 109 mmol/L (98-107); Creatinine, Serum 0.82 mg/dL (0.55-1.02); EST Glomerular Filtration Rate 70 mL/min (>60); Est Glom Filt Rate - Afr Amer 85 mL/min (>60); Globulin 3.1 g/dL (2.2-4.2); Glucose 100 mg/dL (74-106); Potassium 4.1 mmol/L (3.5-5.1); Sodium Level 141 mmol/L (136-145)
== END | disposition home or self-care (01) ==
LOC: MFPLAB 08:13
PROVIDERS: PCP Family Medicine; Visit Provider Internal Medicine Rheumatology
DX: M05.70 Rheumatoid arthritis with rheumatoid factor of unspecified site without organ or systems involvement (principal); M79.7 Fibromyalgia; M19.041 Primary osteoarthritis, right hand; M47.897 Other spondylosis, lumbosacral region; I10 Essential (primary) hypertension; E78.5 Hyperlipidemia, unspecified; Z79.899 Other long term (current) drug therapy
CPT/HCPCS: 36415; 80053; 85025

== ENCOUNTER → 2023-08-26 | Outpatient (CLI) | payer MEDICARE, SELFPAY ==
--- NOTE | 2023-08-26 13:08 | NEURO ---
NCS and/or EMG Patient Report Ordering Doctor: Jb Joiner DATE OF SERVICE: 08/26/23 Susan presents for electrodiagnostic testing of the right upper limb. She reports numbness and tingling in the right hand. Electrodiagnostic findings: Right median motor nerve demonstrates prolonged distal latency with normal amplitude and reduced conduction velocity. Right ulnar motor nerve demonstrates normal distal latency and amplitude with a nearly 20% drop in conduction across the elbow. Prolonged right median F?wave is noted. Absent right median sensory latency at the wrist. Normal ulnar and radial sensory responses. Needle EMG testing was performed the right upper limb. All muscles tested showed no evidence of denervation with normal motor unit action potentials. Electrodiagnostic impression: This an abnormal study in the right upper limb 1. Electrodiagnostic findings suggestive of right-sided median mononeuropathy. This is consistent with a severe right carpal tunnel syndrome 2. No electrodiagnostic evidence suggestive for right ulnar neuropathy. This is consistent with a mild right cubital tunnel syndrome. 3. There is no electrodiagnostic evidence for cervical radiculopathy. Multi Select Codes Neurology Neurology Interp Codes: 71217-32 Musc test done w/n test comp (interp) and 02154-41 Nrv cndj tst 5-6 studies (interp)
== END | disposition home or self-care (01) ==
LOC: PSN 09:31
PROVIDERS: PCP Family Medicine; Referring Provider Psychiatry & Neurology Neurology; Visit Provider Psychiatry & Neurology Neurology
DX: R20.2 Paresthesia of skin (principal); G56.01 Carpal tunnel syndrome, right upper limb
CPT/HCPCS: 95886; 95909

== ENCOUNTER → 2023-09-14 | Outpatient (CLI) | payer MEDICARE, SELFPAY ==
[2023-09-14 12:46] LABS: Absolute Lymphocyte Count 1.75 X10^3/uL (0.83-4.51); Absolute Neutrophil Count 2.9 X10^3/uL (2.0-7.7); Basophil# 0.04 X10^3/uL; Basophil% 0.8 % (0-1); Eosinophil# 0.08 X10^3/uL; Eosinophils% 1.5 % (0-5); Hemoglobin 11.3 g/dL (12.0-15.0); Lymphocyte # 1.75 X10^3/ul (0.83-4.51); Lymphocyte % 33.2 % (19-41); Mean Corp Hgb Conc 29.7 g/dL (32-36); Mean Corpuscular Hgb 24.9 pg (27.0-32.0); Mean Corpuscular Volume 83.7 fL (81-99); Mean Platelet Vol. 10.3 fl (6.2-12.0); Monocyte# 0.48 X10^3/uL; Monocyte% 9.1 % (0-10); NRBC Flagged by Analyzer 0 % (0-5); Neutrophil # 2.91 X10^3/uL (2.7-7.7); Neutrophil % 55.2 % (47-70); POSITIVE MORPHOLOGY YES; Platelet Count 164 K/mm3 (150-450); RBC Distribution Width CV 21.5 % (11.6-14.6); Red Blood Count 4.54 M/mm3 (4.2-5.4); White Blood Count 5.3 K/mm3 (4.4-11.0)
[2023-09-14 12:48] LABS: Differential Indicated SCAN CRITERIA MET
[2023-09-14 13:19] LABS: Iron 66 ug/dL (50-170)
[2023-09-14 14:02] LABS: Anisocytosis 1+
== END | disposition home or self-care (01) ==
LOC: MFPLAB 09:52
PROVIDERS: PCP Family Medicine; Visit Provider Family Medicine
DX: D50.9 Iron deficiency anemia, unspecified (principal)
CPT/HCPCS: 36415; 83540; 85025

== ENCOUNTER → 2023-09-25 | Outpatient (CLI) | payer MEDICARE, SELFPAY | END | disposition home or self-care (01) | PROVIDERS: PCP Family Medicine; Referring Provider Family Medicine; Visit Provider Family Medicine | DX: N39.0 Urinary tract infection, site not specified (principal) | CPT/HCPCS: 87086; 87088 ==

== ENCOUNTER 2023-10-06 21:41 | Emergency (ER) | payer MEDICARE, SELFPAY ==
[2023-10-06 21:41] VITALS: BP 158/58; PULSE 70; RESP 18; TEMP 36.4; O2SAT 99
--- NOTE | 2023-10-06 22:08 | CT_ITS ---
INDICATION: pain EXAMINATION: CT LUMBAR SPINE - CT Spine Lumbar W/O Contrast Injection TECHNIQUE: Helically acquired images were obtained of the lumbar spine. 2D reformats were reviewed. A radiation dose optimization technique was used for this scan. The protocol utilizes one or more of the following dose reduction techniques: automated exposure control, adjustment of mA and/or kV according to patient size,and/or use of iterative reconstruction technique. IV Contrast dosage and agent: None. RADIATION DOSAGE (If Supplied By Facility): CTDIvol = ( 20.68 ) mGy, DLP = ( 688.74 ) mGycm COMPARISON: Prior study dated: 01/13/2018 FINDINGS: VERTEBRAE: L3 kyphoplasty. Radiopaque bar at the left pedicle at L3 extending to the vertebral body. No fracture or traumatic subluxation. No discrete lytic or blastic abnormality observed. Grade 1 anterolisthesis of L4 on L5. DISCS and SPINAL CANAL: Disc space narrowing throughout the lower lumbar spine with vacuum disc phenomenon. No critical stenosis. VISUALIZED ABDOMEN: Visualized abdominal aorta is not dilated. There is no retroperitoneal adenopathy. Hiatal hernia noted. CT/Spine Lumbar without Contrast IMPRESSION: No evidence of acute lumbar spinal fracture or spondylolisthesis. Degenerative changes at the lower lumbar spine. Electronically Signed: Wolf Argueta MD at 22:57 EDT ,
[2023-10-06] MEDS: diazePAM 5 MG Tablet 2.5 MG PO (22:25)
--- NOTE | 2023-10-06 23:24 | EDS_ITS ---
HPI History of Present Illness Chief Complaint: Back Informant: patient, family and friend Narrative Narrative: Patient is 88-year-old female with past medical history of hypertension and lumbar degeneration status post kyphoplasty. She reports that roughly 1 week ago she tripped in her bedroom and fell. She denies striking her head or any loss of consciousness. She states she was able to get back up 5 to 10 minutes later with the help of her neighbors. She states that since that time she has had pain to her midline and left-sided low back. She reports she has been able to ambulate but it has been painful to do so. She reports she is having pain radiating down her left leg. She denies any loss of bowel bladder control or IV drug use. She states she has been taking Tylenol arthritis which has helped symptoms but they have persisted and with concern for potential underlying injury from the fall she comes in for evaluation. She states has been no repeat trauma since the fall roughly 1 week ago. 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 09/16/22 Unknown History calcium-vitamin D3 6.25 mcg (250 unit) tablet folic acid 1 mg tablet 2 mg PO DAILY 09/16/22 Unknown History leucovorin calcium 15 mg tablet 15 mg PO QWEEK 09/16/22 Unknown History loratadine 10 mg tablet 10 mg PO DAILY PRN nasal/sinus 02/04/23 Unknown Rx congestion/drainage #10 tabs gabapentin 100 mg capsule 100 mg PO BID #60 caps 07/29/23 Unknown Rx albuterol sulfate 90 mcg/actuation 2 puff inhalation Q4H PRN PRN 08/02/23 Unknown Rx aerosol inhaler (Ventolin HFA) Wheezing 30 days #6.7 grams azithromycin 250 mg tablet See Rx Instructions PO .COMPLEX #6 08/02/23 Unknown Rx (Zithromax Z-Mathew) tabs doxycycline hyclate 100 mg tablet 100 mg PO BID #14 tabs 08/02/23 Unknown Rx lisinopril 10 mg tablet 10 mg PO BID blood pressure #180 10/05/23 Unknown Rx tabs diazepam 2 mg tablet (Valium) 2 mg PO TID PRN Muscle pain/spasm 10/06/23 Unknown Rx 5 days #15 tabs Allergy/AdvReac Type Severity Reaction Status Date / Time amoxicillin (Amoxicillin) Allergy Severe Swelling Verified 10/06/23 21:43 cyclobenzaprine HCl (From Allergy Severe Swelling Verified 10/06/23 21:43 Flexeril) diclofenac sodium (From Allergy Severe Swelling Verified 10/06/23 21:43 Voltaren) dicyclomine Allergy Severe Swelling Verified 10/06/23 21:43 ketoprofen (From Oruvail) Allergy Severe Swelling Verified 10/06/23 21:43 sulfabenzamide Allergy Severe Anaphylaxis Verified 10/06/23 21:43 tramadol Allergy Unknown Unknown Verified 10/06/23 21:43 hydroxyzine HCl (From Atarax) Allergy Swelling Verified 10/06/23 21:43 prednisone Allergy Hives Verified 10/06/23 21:43 pseudoephedrine HCl (From Allergy Other Verified 10/06/23 21:43 Sudafed) cephalexin AdvReac Severe Rash Verified 10/06/23 21:43 clindamycin AdvReac Severe Hives Verified 10/06/23 21:43 codeine AdvReac Severe Upset Verified 10/06/23 21:43 Stomach Family History Mother Heart disease Father Heart disease Other Cancer Surgical History History of appendectomy History of back surgery History of brain surgery History of breast biopsy History of knee replacement procedure of left knee Social History Smoking Status: Never smoker second hand exposure: No alcohol intake: never substance use type: does not use what type of physical activity do you participate in: none wolf/sikhism: Denominational seatbelt use: always ROS ROS ED Constitutional Constitutional ED: Denies chills or fever(s) Eyes Eyes: Denies change in vision or diplopia ENT ENT ED: Denies sore throat Cardiovascular Cardiovascular: Reports other Details: Negative syncope ; Denies chest pain Respiratory/Chest Respiratory/Chest: Denies cough or dyspnea Gastrointestinal Gastrointestinal: Denies abdominal pain, diarrhea, nausea or vomiting Genitourinary Genitourinary ED: Denies dysuria or hematuria Musculoskeletal Musculoskeletal: Reports back pain Integumentary Denies Abrasions or rash Neurologic Neurologic: Denies headache(s) or paresthesias Hematologic/Lymphatic Hematologic/Lymphatic: Denies easy bleeding or easy bruising EXAM Physical Exam Const Vital Signs: 10/06/23 21:41 10/06/23 23:41 Temperature 97.6 F L 98.6 F Temperature Source Temporal Pulse Rate 70 69 Respiratory Rate 18 17 Blood Pressure 158/58 H 138/50 H Blood Pressure Mean 91 79 Pulse Ox 99 97 Oxygen Delivery Method Room Air Positive well nourished and well developed General Appearance ED: well developed; Negative for pallor HEENT HEENT Narrative: Normocephalic atraumatic No signs of depressed or basilar skull fracture Eyes PERRL and EOMs intact bilaterally Neck supple Neck Narrative: No bony deformity or step-off of the cervical spine no midline tenderness to palpation Chest Wall palpation of chest normal Chest Narrative: No bony deformity or crepitus noted Resp normal respiratory effort and clear to auscultation bilaterally Cardio regular rate and regular rhythm GI normal to inspection, nondistended, normoactive bowel sounds, non-tender, non- distended and no masses Auscultation: normoactive bowel sounds Palpation: soft Back/Spine Back/Spine Narrative: No bony deformity or step-off of the thoracic or lumbar spine. However there is midline pain from approximately T12-L5 with palpation. There is also left paralumbar tension and spasm noted. Pain does worsen with extension flexion and rotation of the low back. No saddle anesthesia. Negative straight leg raise. No clonus or Babinski. Patellar reflexes are plus 1 out of 4 bilaterally. Extremity normal to inspection Extremity Narrative: Pelvis is stable and there is no shortening or external rotation of either lower extremity Neuro oriented x3, CN's II-XII intact bilaterally and no sensory deficits noted Sensorium / Orientation: alert Psych mental status grossly normal Skin no rashes or lesions noted and no wounds Skin Narrative: No abrasions or ecchymosis noted General Skin Exam: Negative for jaundice or pallor MDM MDM MDM Narrative Medical decision making narrative: Patient arrived to the ER with stable vitals and reported a mechanical fall roughly 1 week ago. She did not strike her head or have loss of consciousness nor does she deny history of bleeding disorder or blood thinner use so I felt no need for head or cervical spine CT. pelvis is also stable without shortening or rotation and patient is been able to ambulate so concern for femoral neck/hip or pubic rami fracture is low and I feel no need for a x-ray. However with pain along the T12-L5 region there is concern for compression fracture versus spondylolisthesis versus ruptured disc. A CT scan of the lumbar spine was obtained which revealed chronic findings without a new or significant compression fracture or signs of ruptured disc. Patient did not want pain medication but was given Valium secondary to exam also indicating muscular spasm. On reevaluation she reports improvement of symptoms. At this time as vitals are stable and CT scan does not reveal any sign of a new fracture and exam does not suggest acute nerve impingement or neuro claudication there is no need for admission and she is otherwise safe for discharge. History & Record Review Discussion w/independent historian: Patient, Family and Friend Radiography Diagnostic Testing: Clinical Impression(s) from Imaging Studies Lumbar Spine CT 10/06/23 22:08 IMPRESSION: No evidence of acute lumbar spinal fracture or spondylolisthesis. Degenerative changes at the lower lumbar spine. Electronically Signed: Wolf Argueta MD at 22:57 EDT Reading Location ID and State: [address] [place] [address] Tel , Service support , Discharge Plan Triage Chief Complaint: Back ED Provider: Jack Wells Dx/Rx/DC Orders Clinical Impression: Contusion of lumbar spinal region, Acute myofascial strain of lumbosacral region, Essential hypertension, Disc degeneration, lumbosacral, Rheumatoid arthritis Instructions: Understanding Lumbosacral Strain, ED Back Contusion Prescriptions: New diazepam [Valium] 2 mg tablet 2 mg PO TID PRN (Reason: Muscle pain/spasm) 5 Days Qty: 15 0RF No Action atorvastatin 20 mg tablet 20 mg PO QHS 30 Days Qty: 30 folic acid 1 mg tablet 2 mg PO DAILY methotrexate sodium 2.5 mg tablet 25 mg PO QWEEK loratadine 10 mg tablet 10 mg PO DAILY PRN (Reason: nasal/sinus congestion/drainage) Qty: 10 0RF leucovorin calcium 15 mg tablet 15 mg PO QWEEK Patient Comments: Take 1 Tablet(s) Oral once a week gabapentin 100 mg capsule 100 mg PO BID Qty: 60 5RF azithromycin [Zithromax Z-Mathew] 250 mg tablet See Rx Instructions PO .COMPLEX Qty: 6 0RF Rx Instructions: For 250 mg dose pack: take 500 mg today (day 1), then 250 mg for 4 days (days 2-5) PO aspirin 81 MG tablet,chewable 81 mg PO DAILY@0800 Patient Comments: heart [employer] calcium citrate-vitamin D3 315 mg-6.25 mcg (250 unit) tablet 2 tab PO BID Patient Comments: vitamin albuterol sulfate [Ventolin HFA] 90 mcg/actuation HFA aerosol inhaler 2 puff inhalation Q4H PRN PRN (Reason: Wheezing) 30 Days Qty: 6.7 0RF doxycycline hyclate 100 mg tablet 100 mg PO BID Qty: 14 0RF lisinopril 10 mg tablet 10 mg PO BID Qty: 180 3RF Primary Care Provider: Olga Hurst Referrals: Olga Hurst MD [Primary Care Provider] - Activity Restrictions/Additional Instructions: Please continue to stretch and heat your back to reduce pain and speed healing. Follow-up with your family doctor and/or pain management doctor to discuss need for injections for symptom control and/or further imaging studies such as MRI or PET scan if symptoms persist. Return to the ER should you have any further concerns Print Language: Nigerien Disposition Disposition: Home, Self Care Discharge Date/Time: 10/06/23 23:42
[2023-10-06 23:41] VITALS: BP 138/50; PULSE 69; RESP 17; TEMP 37; O2SAT 97
== END 2023-10-06 23:42 | disposition home or self-care (01) ==
PROVIDERS: Emergency Provider Emergency Medicine; PCP Family Medicine; Visit Provider Emergency Medicine
DX: S39.012A Strain of muscle, fascia and tendon of lower back, initial encounter (principal); M06.9 Rheumatoid arthritis, unspecified; I10 Essential (primary) hypertension; M51.37 Other intervertebral disc degeneration, lumbosacral region; S30.0XXA Contusion of lower back and pelvis, initial encounter; Z98.890 Other specified postprocedural states; E78.00 Pure hypercholesterolemia, unspecified; W19.XXXA Unspecified fall, initial encounter
CPT/HCPCS: 72131; 99282

== ENCOUNTER → 2023-11-04 | Outpatient (CLI) | payer MEDICARE, SELFPAY ==
[2023-11-04 10:06] LABS: Absolute Neutrophil Count 3.4 X10^3/uL (2.0-7.7); Basophil# 0.05 X10^3/uL; Basophil% 0.8 % (0-1); Eosinophil# 0.08 X10^3/uL; Eosinophils% 1.3 % (0-5); Hematocrit 39.2 % (37-47); Hemoglobin 12.3 g/dL (12.0-15.0); Lymphocyte % 29.6 % (19-41); Mean Corp Hgb Conc 31.4 g/dL (32-36); Mean Corpuscular Hgb 28.1 pg (27.0-32.0); Mean Corpuscular Volume 89.5 fL (81-99); Mean Platelet Vol. 9.8 fl (6.2-12.0); Monocyte# 0.74 X10^3/uL; Monocyte% 12.2 % (0-10); NRBC Flagged by Analyzer 0 % (0-5); Neutrophil % 55.8 % (47-70); POSITIVE MORPHOLOGY YES; Platelet Count 172 K/mm3 (150-450); RBC Distribution Width CV 20.5 % (11.6-14.6); Red Blood Count 4.38 M/mm3 (4.2-5.4); White Blood Count 6.1 K/mm3 (4.4-11.0)
[2023-11-04 10:08] LABS: Differential Indicated SCAN CRITERIA MET
[2023-11-04 10:32] LABS: ALB/GLOB Ratio 0.9 RATIO (0.9-2.4); AST(SGOT) 15 U/L (15-37); Alanine Aminotransfer ALT/SGPT 16 U/L (13-56); Albumin, Serum 3.1 g/dL (3.2-5.0); Alkaline Phosphatase 65 U/L (45-117); Anion Gap 3 (5-15); BUN 30 mg/dL (7-18); Chloride 112 mmol/L (98-107); Creatinine, Serum 0.75 mg/dL (0.55-1.02); EST Glomerular Filtration Rate 78 mL/min (>60); Est Glom Filt Rate - Afr Amer 94 mL/min (>60); Globulin 3.3 g/dL (2.2-4.2); Glucose 86 mg/dL (74-106); Potassium 4.3 mmol/L (3.5-5.1); Protein, Total 6.4 g/dL (6.4-8.2); Sodium Level 140 mmol/L (136-145)
[2023-11-04 10:58] LABS: Anisocytosis RARE
== END | disposition home or self-care (01) ==
LOC: MFPLAB 08:34
PROVIDERS: PCP Family Medicine; Visit Provider Internal Medicine Rheumatology
DX: M05.70 Rheumatoid arthritis with rheumatoid factor of unspecified site without organ or systems involvement (principal); M79.7 Fibromyalgia; M19.041 Primary osteoarthritis, right hand; Z79.899 Other long term (current) drug therapy
CPT/HCPCS: 36415; 80053; 85025

== ENCOUNTER → 2023-12-04 | Outpatient (CLI) | payer MEDICARE, SELFPAY ==
--- NOTE | 2023-12-04 13:00 | RAD_ITS ---
HISTORY: pain after fall. TECHNIQUE: X-RAY - XR Sacrum/Coccyx Min 2 Views. COMPARISON: Pelvis 03/26/2018. Abdomen 11/04/2019 FINDINGS: SACRUM/COCCYX: Chronic L3 compression fracture with vertebroplasty and adjacent chronic susan fracture. No acute displaced fracture identified in the sacrococcygeal spine. SACRO-ILIAC JOINTS: Unremarkable. RAD/Sacrum-Coccyx min 2 Views IMPRESSION: Unremarkable sacro-coccygeal spine. Electronically Signed: Diane Cooper MD at 13:03 EDT ,
== END | disposition home or self-care (01) ==
LOC: MTRAD 12:58
PROVIDERS: PCP Family Medicine; Referring Provider Family Medicine; Visit Provider Family Medicine
DX: M53.3 Sacrococcygeal disorders, not elsewhere classified (principal)
CPT/HCPCS: 72220

== ENCOUNTER → 2023-12-22 | Outpatient (CLI) | payer MEDICARE, SELFPAY ==
[2023-12-22 13:04] LABS: Absolute Lymphocyte Count 1.71 X10^3/uL (0.83-4.51); Basophil# 0.07 X10^3/uL; Basophil% 1.2 % (0-1); Eosinophil# 0.14 X10^3/uL; Eosinophils% 2.5 % (0-5); Hematocrit 40.2 % (37-47); Lymphocyte # 1.71 X10^3/ul (0.83-4.51); Lymphocyte % 30.3 % (19-41); Mean Corp Hgb Conc 32.3 g/dL (32-36); Mean Corpuscular Hgb 30.2 pg (27.0-32.0); Mean Corpuscular Volume 93.3 fL (81-99); Mean Platelet Vol. 11.7 fl (6.2-12.0); Monocyte# 0.72 X10^3/uL; Monocyte% 12.8 % (0-10); NRBC Flagged by Analyzer 0 % (0-5); Neutrophil # 2.98 X10^3/uL (2.7-7.7); Neutrophil % 52.8 % (47-70); Platelet Count 142 K/mm3 (150-450); RBC Distribution Width CV 13.7 % (11.6-14.6); RBC Distribution Width SD 45.4 fl (35.1-43.9); Red Blood Count 4.31 M/mm3 (4.2-5.4); White Blood Count 5.6 K/mm3 (4.4-11.0)
[2023-12-22 13:56] LABS: ALB/GLOB Ratio 0.9 RATIO (0.9-2.4); AST(SGOT) 22 U/L (15-37); Alanine Aminotransfer ALT/SGPT 21 U/L (13-56); Albumin, Serum 3.4 g/dL (3.2-5.0); Alkaline Phosphatase 72 U/L (45-117); Anion Gap 9 (5-15); BUN 27 mg/dL (7-18); BUN/Creat Ratio 35.5 RATIO (10-20); Calcium,Total 9.8 mg/dL (8.5-10.1); Chloride 108 mmol/L (98-107); Creatinine, Serum 0.76 mg/dL (0.55-1.02); EST Glomerular Filtration Rate 76 mL/min (>60); Est Glom Filt Rate - Afr Amer 93 mL/min (>60); Globulin 3.6 g/dL (2.2-4.2); Glucose 94 mg/dL (74-106); Potassium 4.1 mmol/L (3.5-5.1); Sodium Level 140 mmol/L (136-145)
== END | disposition home or self-care (01) ==
PROVIDERS: PCP Family Medicine; Referring Provider Internal Medicine Rheumatology; Visit Provider Internal Medicine Rheumatology
DX: M05.70 Rheumatoid arthritis with rheumatoid factor of unspecified site without organ or systems involvement (principal); M79.7 Fibromyalgia; M19.041 Primary osteoarthritis, right hand; Z79.899 Other long term (current) drug therapy
CPT/HCPCS: 36415; 80053; 85025

== ENCOUNTER → 2024-02-10 | Outpatient (CLI) | payer MEDICARE, SELFPAY ==
--- NOTE | 2024-02-10 11:56 | RAD_ITS ---
INDICATION: Sacrococcygeal disorders, not elsewhere classified EXAMINATION/TECHNIQUE: X-RAY - XR Sacrum/Coccyx Min 2 Views COMPARISON: 12/04/2023. FINDINGS: SACRUM/COCCYX: No displaced fracture, destructive or sclerotic lesions. Note that overlapping bowel shadows may however obscure fine detail in the frontal view. SACRO-ILIAC JOINTS: The articular structures are unremarkable. SOFT TISSUES: No soft tissue swelling or gas. RAD/Sacrum-Coccyx min 2 Views IMPRESSION: Unremarkable sacro-coccygeal spine. Electronically Signed: Laya Alegria MD at 19:25 EDT Reading Location ID and State: [id number] / Tel , Service support ,
== END | disposition home or self-care (01) ==
LOC: RAD 11:52
PROVIDERS: PCP Family Medicine; Referring Provider Anesthesiology Pain Medicine; Visit Provider Anesthesiology Pain Medicine
DX: M53.3 Sacrococcygeal disorders, not elsewhere classified (principal)
CPT/HCPCS: 72220

== ENCOUNTER 2024-02-17 06:58 | Day surgery (SDC) | payer MEDICARE, SELFPAY ==
[2024-02-17] VITALS (9 sets, daily range): BP systolic 103–147; BP diastolic 48–57; PULSE 60–75; RESP 16–18; TEMP 36.1–36.7; O2SAT 93–98; BMI 30.6
--- OUTSIDE RECORDS SUMMARY | 2024-02-17 07:01 | XMS RPT_ITS | CCD ---
Author Organization [facility] Inform ion Partnership [facility] Care Team Providers Care Accounting Manager Name Role Phone Muir, Ramila Unavailable Unavailable Muir, Ramila Unavailable Unavailable DeFinis, Harumi Y Unavailable Unavailable DeFinis, Harumi Y Unavailable Unavailable Muir, Ramila Unavailable Unavailable Jolliff, Olga Jennifer Primary Care Provider [phone] Jollcarline, Olga Jennifer Primary Care Provider Jolliff, Olga Jennifer Primary Care Provider Jolliff, Olga Jennifer Primary Care Provider [phone] Jolliff, Olga Jennifer Primary Care Provider NEYFRANKOT IMER ZULEMA Attending Unavail able JOLLIFF, OLGA JENNIFER Primary Care Unavailable NEYHART IMER ZULEMA Attending Unavail able JOLLIFF, OLGA JENNIFER Primary Care Unavailable NEYHART WILLAMS, ZULEMA Attending Unavail able JOLLIFF, OLGA JENNIFER Primary Care Unavailable JOLLIFF, OLGA JENNIFER Primary Care Unavailable NEYHART IMER ZULEMA Attending Unavail able JOLLIFF, OLGA JENNIFER Primary Care Unavailable NEYHART WLILAMS, ZULEMA Attending Unavail able JOLLIFF, OLGA JENNIFER Primary Care Unavailable Allergies Allergy Classification Reported Allergen(s) Allergy Type Date of Onset Reaction(s) Facility (17 sources) amoxicillin; Translations: [AMOXICILLIN] Drug Allergy 5 Swelling [facility] Work Phone: (17 sources) cephalexin; Translations: [CEPHALEXIN] Drug Allergy 3 Rash [facility] Work Phone: (17 sources) codeine; Translations: [CODEINE] Drug Allergy 8 GI Upset [facility] Work Phone: (5 sources) cyclobenzaprine Drug Allergy 7 swelling [facility] Work Phone: (5 sources) diclofenac Drug Allergy 7 swelling [facility] Work Phone: (17 sources) diclofenac; Translations: [DICLOFENAC] Drug Allergy 5 Swelling [facility] Work Phone: [phone] (5 sources) dicyclomine Drug Allergy 7 swelling [facility] Work Phone: (5 sources) hydrOXYzine Drug Allergy 7 swelling [facility] Work Phone: (5 sources) hydrOXYzine Drug Allergy 7 swelling [facility] Work Phone: (17 sources) ketoprofen; Translations: [KETOPROFEN] Drug Allergy 5 Swelling [facility] Work Phone: (17 sources) predniSONE; Translations: [PREDNISONE] Drug Allergy 5 Rash [facility] Work Phone: (5 sources) PSEUDOPHEDRINE drug allergy 7 [facility] Work Phone: (17 sources) SULFABENZAMIDE; Translations: [SULFABENZAMIDE] drug allergy 5 Anaphylaxis [facility] Work Phone: (5 sources) FLEXARIL drug allergy 7 swelling [facility] Work Phone: (12 sources) cyclobenzaprine; Translations: [CYCLOBENZAPRINE HCL] Drug Allergy 5 Swelling [facility] Work Phone: (12 sources) hydrOXYzine; Translations: [HYDROXYZINE HCL] Drug Allergy 5 Swelling [facility] Work Phone: (12 sources) Pseudoephedrine; Translations: [PSEUDOEPHEDRINE] Drug Allergy 0 Intolerance [facility] Work Phone: (12 sources) traMADol; Translations: [TRAMADOL] Drug Allergy 5 Intolerance [facility] Work Phone: (11 sources) DICICLOMINE [Other] Propensity to adverse reactions 5 Swelling [facility] Work Phone: (1 source) OTHER; Translations: [OTHER] Propensity to adverse reactions (disorder) 5 [facility] Repository Medications Current Medications Medication Drug Class(es) Dates Sig (Normalized) Sig (Original) fluconazole 150 mg oral tablet (12 sources) Azole Antifungal Start: 12-25-2021 End: 12-25-2021 fluconazole (DIFLUCAN) 150 mg tablet Take 1 tablet by mouth one time only for 1 dose. Take one tablet today and one tablet in 72hrs. 2 tablet 0 12/25/2021 12/25/2021 Active Start: 11-01-2018 fluconazole (D IFLUCAN) 150 mg tablet Take one tablet today and one tablet in 3 days 2 tablet 0 11/01/2018 Active Comment on above: Take one tablet toda y and one tablet in 3 days Take 1 tablet by stuart th one time only for 1 dose. Take one tablet today and one tablet in 72hrs. Completed/Discontinued Medications Medication Drug Class(es) Dates Sig (Normalized) Sig (Original) acetaminophen 325 mg / oxyCODONE hydrochloride 5 mg oral tablet (10 sources) Opioid Agonist Start: 06-19-2016 End: 06-26-2016 PERCOCET 5-325 MG TABS as directed OXYCODONE-ACETAMI ERI [id number] Daphnie Conte RN aspirin 81 mg delayed release oral tablet (16 sources) Platelet Aggregation Inhibitor, Nonsteroidal Anti-inflammatory Drug Start: 06-19-2016 take 1 tablet by mouth once daily ASPIRIN EC 81 MG TBEC One tablet by mouth daily ASPIRIN [id number] Daphnie Conte RN Aspirin 81 mg Ta b Take 81 mg by mouth. 0 Active Comment on above: Take 81 mg by mouth. atorvastatin 20 mg oral tablet (16 sources) HMG-CoA Reductase Inhibitor Start: 7 take 1 tablet by mouth once daily ATORVASTATIN CALCIUM 20 MG TABS One tablet by mouth daily ATORVASTATIN CALCIUM [id number] Rubin Arriaga MD Start: 07-20-2015 take 1 tablet by stuart th once daily at bedtime for hyperlipidemia atorvastatin (LIPITOR) 40 mg tablet Take 1 tablet by mouth daily at bedtime. For cholesterol. 30 tablet 11 07/20/2015 Active Comment on above: Take 1 tablet by stuart th daily at bedtime. For cholesterol. betamethasone 0.5 mg/ml / clotrimazole 10 mg/ml topical cream (19 sources) Azole Antifungal, Corticosteroid Start : 01-24 clotrimazole-betamethaso ne (LOTRISONE) cream Apply 1 application to affected area twice daily. 30 g 0 12/25/2021 Active Comment on above: Apply 1 application to affected area twice daily. calcium citrate (2 sources) Start : 06-19 take 1 tablet by mouth once daily CALCIUM CITRATE + D TABS One tablet by mouth daily CALCIUM CITRATE-VITAMIN D TABS [id number] Daphnie Conte RN calcium citrate 1500 mg / cholecalciferol 250 unt oral tablet (11 sources) Vitamin D Start : 05-25 Calcium Citrate-Vitamin D3 (CITRACAL + D) 315-250 mg-unit Tab Take as directed 0 05/25/2012 Active Comment on above: Take as directed CALCIUM CITRATE-VITAMIN D TABS (3 sources) Start : 06-19 take 1 tablet by mouth once daily CALCIUM CITRATE + D TABS One tablet by mouth daily CALCIUM CITRATE-VITAMIN D TABS [id number] Daphnie Conte RN estradiol 0.1 mg/ml vaginal cream (11 sources) Estrogen Start : 01-13 estradiol (ESTRACE) 0.01 % (0.1 mg/gram) vaginal cream Apply fingertip amount nightly x 4 weeks then use 2-3 times per week 1 Tube 0 01/13/2018 Active Comment on above: Apply fingertip amou nt nightly x 4 weeks then use 2-3 times per week folic acid 1 mg oral tablet (11 sources) Start : 01-17 take 2 tablets by mouth once daily folic acid 1 mg tablet Take 2 mg by mouth once daily. 0 01/18/2020 Active Comment on above: Take 2 mg by mouth o nce daily. gabapentin 100 mg oral capsule (5 sources) Anti-epileptic Agent Start : 02-17 take 1 capsule by mouth once daily in the evening gabapentin (NEURONTIN) 100 mg capsule TAKE 1 CAPSULE BY MOUTH EVERY DAY in the evening 0 02/17/2022 Active Comment on above: TAKE 1 CAPSULE BY MO UTH EVERY DAY in the evening hydroCHLOROthiazide 25 mg oral tablet (16 sources) Thiazide Diuretic Start : 10-04 take 1 tablet by mouth once daily hydrochlorothiazide (HYDRODIURIL, ESIDRIX) 25 mg tablet Indications: Essential hypertension, benign Take 1 tablet by mouth once daily. 30 tablet 11 10/04/2014 Active Comment on above: Take 1 tablet by stuart th once daily. leucovorin 15 mg oral tablet (11 sources) Folate Analog Start : 04-16 take 1 tablet by mouth every week leucovorin (LEUCOVORIN) 15 mg tablet Take 15 mg by mouth one time a week. 0 04/16/2020 Active Comment on above: Take 15 mg by mouth one time a week. lisinopril 10 mg oral tablet (16 sources) Angiotensin Converting Enzyme Inhibitor Start : 10-04 take 1 tablet by mouth once daily lisinopril (ZESTRIL, PRINIVIL) 10 mg tablet Indications: Essential hypertension, benign Take 1 tablet by mouth once daily. 30 tablet 11 10/04/2014 Active Comment on above: Take 1 tablet by stuart th once daily. mag hydrox/aluminum hyd/simeth (MAGLOX ORAL) (11 sources) mag hydrox/alumi num hyd/simeth (MAGLOX ORAL) Take by mouth. 0 Active Comment on above: Take by mouth. methotrexate 2.5 mg oral tablet (11 sources) Folate Analog Metabolic Inhibitor Start : 01-19 methotrexate 2.5 mg tablet START BY TAKING 4 TABLETS ONCE A WEEK FOR 1-2 WEEKS THEN INCREASE TAKING 5 TABLETS ONCE A WEEK 0 01/20/2020 Active Comment on above: START BY TAKING 4 TA BLETS ONCE A WEEK FOR 1-2 WEEKS THEN INCREASE TAKING 5 TABLETS ONCE A WEEK metroNIDAZOLE 0.0075 mg/mg vaginal gel (11 sources) Nitroimidazole Antimicrobial Start : 07-26 metroNIDAZOLE (METROGEL VAGINAL) 0.75 % Vaginal Gel Twice weekly vaginally x 6 months after initial course of flagyl 1 Tube 5 07/26/2018 Active Comment on above: Twice weekly vaginal ly x 6 months after initial course of flagyl miSOPROStol 0.2 mg oral tablet (11 sources) Prostaglandin E1 Analog Start : 07-12 miSOPROStol (CYTOTEC) 200 mcg tablet Take two tablets PO night before procedure and two tablets morning of procedure 4 tablet 0 07/12/2018 Active Comment on above: Take two tablets PO night before procedure and two tablets morning of procedure nystatin 100 unt/mg topical powder (11 sources) Polyene Antifungal Start : 10-14 nystatin (NYSTOP) powder Apply 1 application to affected area four times daily. 1 Bottle 2 10/14/2017 Active Comment on above: Apply 1 application to affected area four times daily. oxyCODONE hydrochloride 5 mg oral tablet (11 sources) Opioid Agonist Start : 09-28 oxyCODONE IR (ROXICODONE) 5 mg immediate release tablet phenazopyridine hydrochloride 200 mg oral tablet (11 sources) Start : 01-12 phenazopyridine (PYRIDIUM, GERIDIUM) 200 mg tablet rosuvastatin calcium 5 mg oral tablet (10 sources) HMG-CoA Reductase Inhibitor Start : 06-19 End: 06-26 take 1 tablet by mouth once daily ROSUVASTATIN CALCIUM 5 MG TABS One tablet by mouth daily ROSUVASTATIN CALCIUM [id number] Daphnie Conte RN tiZANidine 4 mg oral tablet (11 sources) Central alpha-2 Adrenergic Agonist Start : 01-04 take 1 tablet by mouth every eight hours as needed for muscle spasms tiZANidine (ZANAFLEX) 4 mg tablet Indications: Lumbar strain, sequela Take 1 tablet by mouth every 8 hours as needed (muscle spasms). 15 tablet 0 01/04/2015 Active Comment on above: Take 1 tablet by stuart th every 8 hours as needed (muscle spasms). Problems Active Problems Problem Classification Problem Date Documented Date Episodic/Chronic Complication of device; implant or graft (2 sources) Vaginal irritation; Translations: [Other specified complication of genitourinary prosthetic devices, implants and grafts, initial encounter] Episodic Disorders of lipid metabolism (16 sources) Hyperlipidemia; Translations: [Hyperlipidemia, unspecified] Onset: 10-17-2005 06-19-2016 Chronic Epilepsy; convulsions (11 sources) Seizure; Translations: [Unspecified convulsions] 02-27-2011 Episodic Essential hypertension (16 sources) Hypertensive disorder; Translations: [Essential (primary) hypertension] Onset: 01-19-2006 06-19-2016 Chronic Genitourinary symptoms and ill-defined conditions (11 sources) Female stress incontinence; Translations: [Stress incontinence (female) (male)] Onset: 12-19-2008 12-19-2008 Chronic Menopausal disorders (11 sources) Atrophic vaginitis; Translations: [Postmenopausal atrophic vaginitis] Onset: 12-19-2008 12-19-2008 Chronic Mycoses (1 source) Candidiasis of skin; Translations: [Candidiasis of skin and nail] Episodic Osteoarthritis (11 sources) Osteoarthritis; Translations: [Osteoarthrosis, unspecified whether generalized or localized, lower leg] Onset: 11-19-2007 05-31-2009 Chronic Other and unspecified benign neoplasm (11 sources) Benign meningioma; Translations: [Benign neoplasm of meninges, unspecified] 02-27-2011 Chronic Other nutritional; endocrine; and metabolic disorders (7 sources) Body mass index (BMI) 32.0-32.9, adult; Translations: [Body mass index (BMI) 33.0-33.9, adult] Onset: 06-26-2016 08-25-2016 Chronic Other nutritional; endocrine; and metabolic disorders (3 sources) Body mass index (BMI) 33.0-33.9, adult; Translations: [Body Mass Index 33.0-33.9, adult] Onset: 06-26-2016 06-26-2016 Chronic Prolapse of female genital organs (20 sources) Prolapse of female genital organs; Translations: [Female genital prolapse, unspecified] Onset: 12-19-2008 Chronic Rehabilitation care; fitting of prostheses; and adjustment of devices (7 sources) Patient encounter status; Translations: [Encounter for fitting and adjustment of other specified devices] Chronic Spondylosis; intervertebral disc disorders; other back problems (11 sources) Degeneration of intervertebral disc; Translations: [Degenerative disc disease] Onset: 05-31-2013 05-31-2013 Chronic Past or Other Problems Problem Classification Problem Date Documented Da te Episodic/Chronic Abdominal pain (11 sources) Left flank pain; Translations: [Unspecified abdominal pain] Onset: 05-31-2013 05-31-2013 Episodic Cancer of brain and nervous system (5 sources) History of malignant neoplasm of nervous system; Translations: [Personal history of malignant neoplasm of brain] Onset: 06-26-2016 06-26-2016 Episodic Conditions associated with dizziness or vertigo (5 sources) Dizziness; Translations: [Dizziness and giddiness] Onset: 08-25-2016 08-25-2016 Episodic Diabetes mellitus without complication (11 sources) Impaired fasting glycemia; Translations: [Impaired fasting glucose] Onset: 01-02-2010 07-17-2010 Episodic Genitourinary symptoms and ill-defined conditions (20 sources) Dysuria; Translations: [Dysuria] Onset: 05-31-2013 05-31-2013 Episodic Other bone disease and musculoskeletal deformities (11 sources) Disorder of skeletal system; Translations: [Disorder of bone, unspecified] Onset: 11-10-2006 05-31-2009 Episodic Spondylosis; intervertebral disc disorders; other back problems (11 sources) Low back pain; Translations: [Lumbago] Onset: 12-24-2006 05-31-2009 Episodic Sprains and strains (11 sources) Strain of neck muscle; Translations: [Strain of muscle, fascia and tendon at neck level, initial encounter] Onset: 01-23-2014 01-23-2014 Episodic Syncope (5 sources) Syncope; Translations: [Syncope and collapse] Onset: 06-19-2016 06-19-2016 Episodic Urinary tract infections (11 sources) Recurrent urinary tract infection; Translations: [Urinary tract infection, site not specified] Onset: 05-31-2013 05-31-2013 Episodic Results Test Name Value Interpretation Reference Range Facility [facility] 01-29-[address] [facility] ID: [id number] Author: Coordinator, Mammography Service: ? Author Type: Physician Type: Letter Filed: 02/02/2023 11:33 PM Note Text: January 30, 2023 PID: [id number] Ba Senior [id number] [place] [id number] Dear Ms. Senior, We are pleased to inform you that the results of your recent breast imaging exam on 2023 are normal. Early detection of cancer is very important. We also understand recommendations regarding breast cancer screening are controversial. Please discuss with your primary care provider which strategy is best for you and whether a mammogram is right for you. Your imaging studies and report will be kept on file at [facility] as part of your permanent medical record and are available for your continuing care. Thank you for allowing us to help in meeting your health care needs. Sincerely, Dr. Bella Interpreting Radiologist [facility] (Normal over 40) Normal [facility] SCREENING W TOMOon 01-28 ALEKSANDRA SCREENING W ANTONIETA * * *Final Report* * * DATE OF EXAM: 2023 2:29PM [id number] - ALEKSANDRA SCREENING W ANTONIETA / PROCEDURE REASON: Z12.31 * * * * Physician Interpretation * * * * RESULT: #[id number] - ALEKSANDRA SCREENING W ANTONIETA BILATERAL DIGITAL SCREENING MAMMOGRAM TOMOSYNTHESIS WITH CAD: 2023 HISTORY: /SEE TECH NOTE /Screening Mammogram with ANTONIETA - patient reports NO breast symptoms /priors available for comparison Z12.31. RESULT: TECHNIQUE: The study was acquired using full field digital technology and interpreted from soft copy. Digital Breast Tomosynthesis (DBT) images were obtained and used to assist in the interpretation of this examination. Current study was also evaluated with a Computer Aided Detection (CAD). Comparison is made to exams dated: 01/10/2022 mammogram, 12/21/2020 mammogram, 12/02/2019 mammogram - [facility], 09/14/2018 mammogram, 08/26/2017 mammogram, and 07/09/2016 mammogram - [facility]. There are scattered areas of fibroglandular density. The study is suboptimal in positioning due to the patient's limited mobility. There is a biopsy clip in the left breast. No significant masses, calcifications, or other findings are seen in either breast. There has been no significant interval change. IMPRESSION: BENIGN FINDING There is no mammographic evidence of malignancy. A 1 year screening mammogram is recommended. Nelson Bella M.D. pt/penrad:01/29/2023 12:19:48 Materials And Processes Manager(s): RT Lorenzo(R)(M), [facility] letter sent: Normal over 40 Mammogram BI-RADS: 2 Benign finding Multiple national specialty organizations have released breast cancer screening guidelines for women at average risk for developing breast cancer - guidelines that are based on both evidence and opinion, yet differ on when to start and how often to screen for breast cancer. With representation from Breast Imaging, Internal Medicine, Women's Health, Family Medicine, and Medical/Surgical Oncology, the [facility] has carefully reviewed the data and reached the following consensus: 1) All women should engage in shared decision-making with their providers to decide when to start and how often to screen; 2) All women should have the opportunity to start screening mammography at age 40; 3) For women ages 45-55, we recommend annual screening mammograms; 4) For women ages 55 and over, we support both the transition from an annual to a biennial interval if this aligns more with patient's values and preferences, or continuation with annual screening; 5) All women should discuss with their providers when to stop screening mammograms. Cooky Machine Operator: Maria De Jesus Transcribe Date/Time: 2023 2:04P Dictated by: NELSON BELLA MD This examination was interpreted and the report reviewed and electronically signed by: NELSON BELLA MD on Jan 29 2023 12:19PM EST [id number] Normal [facility] CNOVon 07-21-2022 CNOV Office Visit (OBGYWM ) BA SENIOR ([id number]) 1935 F Date Time Provider Department 07/21/22 2:00 PM ZULEMA CHAPARRO OBDOMINICWAlphonse During your visit today, we recorded the following information about you: Blood pressure Weight 110/60 78.4 kg Zulema Lemus MD 07/21/2022 2:24 PM Signed Information Technology Specialist offered: godwin Senior is a 87 year old female who presents for 3 maintenance. Patient reports had no problems over the past 2 weeks since the pessary has been out. She does not notice any difference in her urinary habits. She denies having any vaginal pressure or bulge hanging down from the vagina. She has no bleeding. She has no abnormal discharge or odors. 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, unspecified OSTEOPENIA Hypertension Osteoarthrosis, unspecified whether generalized or localized, other specified sites Other and unspecified coagulation defects Post Knee replacement Other and unspecified hyperlipidemia 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 Unspecified urinary incontinence Incontinence, stress/CYSTOCELE, RECTOCELE Urge incontinence mild PAST SURGICAL HISTORY Procedure Laterality Date APPENDECTOMY ARTHROSCOPY KNEE DIAGNOSTIC W/WO SYNOVIAL BX SPX 01-12-04 Arthroscopy, knee ARTHRP KNE CONDYLEANDPLATU MEDIALANDLAT COMPARTMENTS 11-19-04 Knee replacement, total left BACK SURGERY HX 09/2016 BIOPSY BREAST OPEN INCISIONAL 2004 Bx of breast, incisional LIG/TRNSXJ FLP TUBE ABDL/VAG APPR UNI/BI Tubal ligation PAST SURGICAL HISTORY OF 03-03-2011 left-sided frontal craniotomy for excision of meningioma FAMILY HISTORY Problem Relation Age of Onset Hypertension Mother Heart Mother Cancer Mother lung Cancer Father LUNG Heart Father Heart Brother STROKE Heart Sister Diabetes Sister Diabetes Paternal Aunt Cancer Sister CERVIX Social History Tobacco Use Smoking status: Never Smokeless tobacco: Never Substance Use Topics Alcohol use: No Drug use: No Current Outpatient Medications Medication Sig gabapentin (NEURONTIN) 100 mg capsule TAKE 1 CAPSULE BY MOUTH EVERY DAY in the evening clotrimazole-betamethas one (LOTRISONE) cream Apply 1 application to affected area twice daily. leucovorin (LEUCOVORIN) 15 mg tablet Take 15 mg by mouth one time a week. methotrexate 2.5 mg tablet START BY TAKING 4 TABLETS ONCE A WEEK FOR 1-2 WEEKS THEN INCREASE TAKING 5 TABLETS ONCE A WEEK folic acid 1 mg tablet Take 2 mg by mouth once daily. clotrimazole-betamethas one (LOTRISONE) cream Apply 1 application to affected area twice daily. fluconazole (DIFLUCAN) 150 mg tablet Take one tablet today and one tablet in 3 days metroNIDAZOLE (METROGEL VAGINAL) 0.75 % Vaginal Gel Twice weekly vaginally x 6 months after initial course of flagyl miSOPROStol (CYTOTEC) 200 mcg tablet Take two tablets PO night before procedure and two tablets morning of procedure phenazopyridine (PYRIDIUM, GERIDIUM) 200 mg tablet estradiol (ESTRACE) 0.01 % (0.1 mg/gram) vaginal cream Apply fingertip amount nightly x 4 weeks then use 2-3 times per week nystatin (NYSTOP) powder Apply 1 application to affected area four times daily. mag hydrox/aluminum hyd/simeth (MAGLOX ORAL) Take by mouth. oxyCODONE IR (ROXICODONE) 5 mg immediate release tablet atorvastatin (LIPITOR) 40 mg tablet Take 1 tablet by mouth daily at bedtime. For cholesterol. (Patient taking differently: Take 20 mg by mouth daily at bedtime. For cholesterol.) tiZANidine (ZANAFLEX) 4 mg tablet Take 1 tablet by mouth every 8 hours as needed (muscle spasms). hydrochlorothiazide (HYDRODIURIL, ESIDRIX) 25 mg tablet Take 1 tablet by mouth once daily. lisinopril (ZESTRIL, PRINIVIL) 10 mg tablet Take 1 tablet by mouth once daily. Aspirin 81 mg Tab Take 81 mg by mouth. Calcium Citrate-Vitamin D3 (CITRACAL + D) 315-250 mg-unit Tab Take as directed No current facility-administered medications for this visit. Allergies As of Date: 07/21/2022 Allergen Noted Reaction AMOXICILLIN 04/16/2005 Swelling ATARAX [HYDROXYZINE HCL] 04/16/2005 Swelling CEPHALEXIN 07/15/2012 Rash CODEINE 06/25/2007 GI Upset DICICLOMINE [OTHER] 04/16/2005 Swelling FLEXERIL [CYCLOBENZAPRINE HCL] 04/16/2005 Swelling ORUVAIL [KETOPROFEN] 04/16/2005 Swelling PREDNISONE 09/11/2014 Rash SUDAFED [PSEUDOEPHEDRINE] 08/24/2009 Intolerance SULFABENZAMIDE 04/16/2005 Anaphylaxis TRAMADOL 12/31/2014 Intolerance VOLTAREN [DICLOFENAC] 04/16/2005 Swelling Fully Assessed 07/21/2022 (more content not included)... Normal [facility] CNOVon 07-09-2022 CNOV Office Visit (OBGYWM ) BA SENIOR ([id number]) 1935 F Date Time Provider Department 07/09/22 8:20 AM ZULEMA CHAPARRO During your visit today, we recorded the following information about you: Blood pressure Weight 128/60 78.5 kg Zulema Lemus MD 07/09/2022 8:36 AM Signed Ba Senior is a 87 year old who presents today for pessary insertion/cleaning. She wears a ring with support pessary. She returns today some spotting occasionally. She has not had problems with the pessary. She has not had vaginal discharge. Denies Odors, discharge. EXAM: pleasant, well developed, well nourished, in no apparent distress Pelvic: Bartholin's, urethra and [place]'s glands were normal. The ring with support pessary was removed. Vaginal exam indicated erythema and no active bleeding- no ulcerations. Silver nitrate applied and will leave pessary out at this time. . 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 2) RTO 2 wks I spent a total of 20 minutes on the date of the service which included preparing to see the patient, [id number] patient care, completing clinical documentation, obtaining and/or reviewing separately obtained history, performing a medically appropriate examination, and counseling and educating the patient/family/caregive r. 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 VOLTAREN (DICLOFENAC) 04/16/2005 7 - Swelling Date Reviewed: 07/09/2022 Reviewed by: Maira Ellis Ma - Fully Assessed Reason for Visit: Pessary [345] Primary Visit Diagnosis:Vaginal inflammation from pessary, initial encounter ([facility]) [T83.69XA, N76.0] Other Visit Diagnoses:Female genital prolapse, unspecified type [N81.9] Pessary maintenance [Z46.89] Prescriptions as of 07/09/2022 - gabapentin (NEURONTIN) 100 mg capsule TAKE 1 CAPSULE BY MOUTH EVERY DAY in the evening - clotrimazole-betamethas one (LOTRISONE) cream Apply 1 application to affected area twice daily. - leucovorin (LEUCOVORIN) 15 mg tablet Take 15 mg by mouth one time a week. - methotrexate 2.5 mg tablet START BY TAKING 4 TABLETS ONCE A WEEK FOR 1-2 WEEKS THEN INCREASE TAKING 5 TABLETS ONCE A WEEK - folic acid 1 mg tablet Take 2 mg by mouth once daily. - clotrimazole-betamethas one (LOTRISONE) cream Apply 1 application to affected area twice daily. - fluconazole (DIFLUCAN) 150 mg tablet Take one tablet today and one tablet in 3 days - metroNIDAZOLE (METROGEL VAGINAL) 0.75 % Vaginal Gel Twice weekly vaginally x 6 months after initial course of flagyl - miSOPROStol (CYTOTEC) 200 mcg tablet Take two tablets PO night before procedure and two tablets morning of procedure - phenazopyridine (PYRIDIUM, GERIDIUM) 200 mg tablet - estradiol (ESTRACE) 0.01 % (0.1 mg/gram) vaginal cream Apply fingertip amount nightly x 4 weeks then use 2-3 times per week - nystatin (NYSTOP) powder Apply 1 application to affected area four times daily. - mag hydrox/aluminum hyd/simeth (MAGLOX ORAL) Take by mouth. - oxyCODONE IR (ROXICODONE) 5 mg immediate release tablet - atorvastatin (LIPITOR) 40 mg tablet Take 1 tablet by mouth daily at bedtime. For cholesterol. - tiZANidine (ZANAFLEX) 4 mg tablet Take 1 tablet by mouth every 8 hours as needed (muscle spasms). - hydrochlorothiazide (HYDRODIURIL, ESIDRIX) 25 mg tablet Take 1 tablet by mouth once daily. - lisinopril (ZESTRIL, PRINIVIL) 10 mg tablet Take 1 tablet by mouth once daily. - Aspirin 81 mg Tab Take 81 mg by mouth. - Calcium Citrate-Vitamin D3 (CITRACAL + D) 315-250 mg-unit Tab Take as directed Problem List As Of Date 07/09/2022 Noted Resolved PAIN IN JOINT, LOWER LEG [M25.569] 05/02/2005 11/19/2007 Other and Unspecified Hyperlipidemia [E78.5] 10/17/2005 Essential Hypertension, Benign [I10] 01/19/2006 OSTEOPENIA [M89.9, M94.9] 11/10/2006 Lumbago [M54.50] 12/24/2006 Osteoarth NOS-L/Leg [CYV0705] 11/19/2007 Routine general medical examination at [facility]11/28/2008 09/23/2011 Class: Chronic Routine gynecological examination [Z01.419] 11/28/2008 09/23/2011 Class: Chronic Symptomatic m (more content not included)... Normal [facility] CNOVon 05-28-2022 CNOV Office Visit (OBGYWM ) BA SENIOR ([id number]) 1935 F Date Time Provider Department 05/28/22 10:50 AM ZULEMA CHAPARRO OBIVELISSE During your visit today, we recorded the following information about you: Blood pressure Weight 120/64 78.5 kg Zulema Lemus MD 05/28/2022 12:08 PM Signed Information Technology Specialist offered: Patient declines. Ba Senior is a 87 year old female who presents for pessary maintenance. Patient reports is doing well. Denies any vaginal bleeding, foul odor. Patient reports minimal itching on the outside of the vagina at times but nothing that is bothersome. Patient offers no other concerns today. 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, unspecified OSTEOPENIA Hypertension Osteoarthrosis, unspecified whether generalized or localized, other specified sites Other and unspecified coagulation defects Post Knee replacement Other and unspecified hyperlipidemia 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 Unspecified urinary incontinence Incontinence, stress/CYSTOCELE, RECTOCELE Urge incontinence mild PAST SURGICAL HISTORY Procedure Laterality Date APPENDECTOMY ARTHROSCOPY KNEE DIAGNOSTIC W/WO SYNOVIAL BX SPX 01-12-04 Arthroscopy, knee ARTHRP KNE CONDYLEANDPLATU MEDIALANDLAT COMPARTMENTS 11-19-04 Knee replacement, total left BACK SURGERY HX 09/2016 BIOPSY BREAST OPEN INCISIONAL 2004 Bx of breast, incisional LIG/TRNSXJ FLP TUBE ABDL/VAG APPR UNI/BI Tubal ligation PAST SURGICAL HISTORY OF 03-03-2011 left-sided frontal craniotomy for excision of meningioma FAMILY HISTORY Problem Relation Age of Onset Hypertension Mother Heart Mother Cancer Mother lung Cancer Father LUNG Heart Father Heart Brother STROKE Heart Sister Diabetes Sister Diabetes Paternal Aunt Cancer Sister CERVIX Social History Tobacco Use Smoking status: Never Smokeless tobacco: Never Substance Use Topics Alcohol use: No Drug use: No Current Outpatient Medications Medication Sig gabapentin (NEURONTIN) 100 mg capsule TAKE 1 CAPSULE BY MOUTH EVERY DAY in the evening clotrimazole-betamethas one (LOTRISONE) cream Apply 1 application to affected area twice daily. leucovorin (LEUCOVORIN) 15 mg tablet Take 15 mg by mouth one time a week. methotrexate 2.5 mg tablet START BY TAKING 4 TABLETS ONCE A WEEK FOR 1-2 WEEKS THEN INCREASE TAKING 5 TABLETS ONCE A WEEK folic acid 1 mg tablet Take 2 mg by mouth once daily. clotrimazole-betamethas one (LOTRISONE) cream Apply 1 application to affected area twice daily. fluconazole (DIFLUCAN) 150 mg tablet Take one tablet today and one tablet in 3 days metroNIDAZOLE (METROGEL VAGINAL) 0.75 % Vaginal Gel Twice weekly vaginally x 6 months after initial course of flagyl miSOPROStol (CYTOTEC) 200 mcg tablet Take two tablets PO night before procedure and two tablets morning of procedure (Patient not taking: Reported on 03/21/2019 ) phenazopyridine (PYRIDIUM, GERIDIUM) 200 mg tablet estradiol (ESTRACE) 0.01 % (0.1 mg/gram) vaginal cream Apply fingertip amount nightly x 4 weeks then use 2-3 times per week nystatin (NYSTOP) powder Apply 1 application to affected area four times daily. (Patient not taking: Reported on 03/21/2019 ) mag hydrox/aluminum hyd/simeth (MAGLOX ORAL) Take by mouth. oxyCODONE IR (ROXICODONE) 5 mg immediate release tablet atorvastatin (LIPITOR) 40 mg tablet Take 1 tablet by mouth daily at bedtime. For cholesterol. (Patient taking differently: Take 20 mg by mouth daily at bedtime. For cholesterol. ) tiZANidine (ZANAFLEX) 4 mg tablet Take 1 tablet by mouth every 8 hours as needed (muscle spasms). (Patient not taking: Reported on 03/21/2019 ) hydrochlorothiazide (HYDRODIURIL, ESIDRIX) 25 mg tablet Take 1 tablet by mouth once daily. lisinopril (ZESTRIL, PRINIVIL) 10 mg tablet Take 1 tablet by mouth once daily. Aspirin 81 mg Tab Take 81 mg by mouth. Calcium Citrate-Vitamin D3 (CITRACAL + D) 315-250 mg-unit Tab Take as directed No current facility-administered medications for this visit. Allergies As of Date: 05/28/2022 Allergen Noted Reaction AMOXICILLIN 04/16/2005 Swelling ATARAX [HYDROXYZINE HCL] 04/16/2005 Swelling CEPHALEXIN 07/15/2012 Rash CODEINE 06/25/2007 GI Upset DICICLOMINE [OTHER] 04/16/2005 Swelling FLEXERIL [CYCLOBENZAPRINE HCL] 04/16/2005 Swelling ORUVAIL [KETOPROFEN] 04/16/2005 Swelling PREDNISONE 09/11/2014 Rash SUDAFED [PSEUDOEPHEDRINE] 08/24/2009 Intolerance SULFABENZAMIDE 04/16/2005 Anaphylaxis TRAMADOL (more content not included)... Normal [facility] CNOVon 04-07-2022 CNOV Office Visit (OBGYWM ) BA SENIOR ([id number]) 1935 F Date Time Provider Department 04/07/22 8:20 AM ZULEMA CHAPARRO OBGYWM During your visit today, we recorded the following information about you: Blood pressure Weight 112/62 78.9 kg Zulema Lemus MD 04/07/2022 8:52 AM Signed Information Technology Specialist offered: Patient declines. Ba Senior is a 87 year old female who presents for pessary maintenance. Patient reports is doing well. Denies any vaginal bleeding or abnormal discharge. She states she does have some external itching but otherwise no concerns. She had a great trip to [place] to see her family. 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, unspecified OSTEOPENIA Hypertension Osteoarthrosis, unspecified whether generalized or localized, other specified sites Other and unspecified coagulation defects Post Knee replacement Other and unspecified hyperlipidemia 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 Unspecified urinary incontinence Incontinence, stress/CYSTOCELE, RECTOCELE Urge incontinence mild PAST SURGICAL HISTORY Procedure Laterality Date APPENDECTOMY ARTHROSCOPY KNEE DIAGNOSTIC W/WO SYNOVIAL BX SPX 01-12-04 Arthroscopy, knee ARTHRP KNE CONDYLEANDPLATU MEDIALANDLAT COMPARTMENTS 11-19-04 Knee replacement, total left BACK SURGERY HX 09/2016 BIOPSY BREAST OPEN INCISIONAL 2004 Bx of breast, incisional LIG/TRNSXJ FLP TUBE ABDL/VAG APPR UNI/BI Tubal ligation PAST SURGICAL HISTORY OF 11-7-2011 left-sided frontal craniotomy for excision of meningioma FAMILY HISTORY Problem Relation Age of Onset Hypertension Mother Heart Mother Cancer Mother lung Cancer Father LUNG Heart Father Heart Brother STROKE Heart Sister Diabetes Sister Diabetes Paternal Aunt Cancer Sister CERVIX Social History Tobacco Use Smoking status: Never Smokeless tobacco: Never Substance Use Topics Alcohol use: No Drug use: No Current Outpatient Medications Medication Sig gabapentin (NEURONTIN) 100 mg capsule TAKE 1 CAPSULE BY MOUTH EVERY DAY in the evening clotrimazole-betamethas one (LOTRISONE) cream Apply 1 application to affected area twice daily. leucovorin (LEUCOVORIN) 15 mg tablet Take 15 mg by mouth one time a week. methotrexate 2.5 mg tablet START BY TAKING 4 TABLETS ONCE A WEEK FOR 1-2 WEEKS THEN INCREASE TAKING 5 TABLETS ONCE A WEEK folic acid 1 mg tablet Take 2 mg by mouth once daily. clotrimazole-betamethas one (LOTRISONE) cream Apply 1 application to affected area twice daily. fluconazole (DIFLUCAN) 150 mg tablet Take one tablet today and one tablet in 3 days metroNIDAZOLE (METROGEL VAGINAL) 0.75 % Vaginal Gel Twice weekly vaginally x 6 months after initial course of flagyl miSOPROStol (CYTOTEC) 200 mcg tablet Take two tablets PO night before procedure and two tablets morning of procedure (Patient not taking: Reported on 03/21/2019 ) phenazopyridine (PYRIDIUM, GERIDIUM) 200 mg tablet estradiol (ESTRACE) 0.01 % (0.1 mg/gram) vaginal cream Apply fingertip amount nightly x 4 weeks then use 2-3 times per week nystatin (NYSTOP) powder Apply 1 application to affected area four times daily. (Patient not taking: Reported on 03/21/2019 ) mag hydrox/aluminum hyd/simeth (MAGLOX ORAL) Take by mouth. oxyCODONE IR (ROXICODONE) 5 mg immediate release tablet atorvastatin (LIPITOR) 40 mg tablet Take 1 tablet by mouth daily at bedtime. For cholesterol. (Patient taking differently: Take 20 mg by mouth daily at bedtime. For cholesterol. ) tiZANidine (ZANAFLEX) 4 mg tablet Take 1 tablet by mouth every 8 hours as needed (muscle spasms). (Patient not taking: Reported on 03/21/2019 ) hydrochlorothiazide (HYDRODIURIL, ESIDRIX) 25 mg tablet Take 1 tablet by mouth once daily. lisinopril (ZESTRIL, PRINIVIL) 10 mg tablet Take 1 tablet by mouth once daily. Aspirin 81 mg Tab Take 81 mg by mouth. Calcium Citrate-Vitamin D3 (CITRACAL + D) 315-250 mg-unit Tab Take as directed No current facility-administered medications for this visit. Allergies As of Date: 04/07/2022 Allergen Noted Reaction AMOXICILLIN 04/16/2005 Swelling ATARAX [HYDROXYZINE HCL] 04/16/2005 Swelling CEPHALEXIN 07/15/2012 Rash CODEINE 06/25/2007 GI Upset DICICLOMINE [OTHER] 04/16/2005 Swelling FLEXERIL [CYCLOBENZAPRINE HCL] 04/16/2005 Swelling ORUVAIL [KETOPROFEN] 04/16/2005 Swelling PREDNISONE 09/11/2014 Rash SUDAFED [PSEUDOEPHEDRINE] 08/24/2009 Intolerance SULFABENZAMIDE 04/16/2005 Anaphylaxis TRAMADOL 12/31/2014 (more content not included)... Normal [facility] CNOVon 02-24-2022 CNOV Office Visit (OBGYWM ) BA SENIOR ([id number]) 1935 F Date Time Provider Department 02/24/22 11:40 AM ZULEMA CHAPARRO OBDOMINICWAlphonse During your visit today, we recorded the following information about you: Blood pressure Weight 100/62 78.5 kg Zulema Lemus MD 02/24/2022 12:21 PM Signed Information Technology Specialist offered: Patient declines. Ba Senior is a 87 year old female who presents for pessary maintenance. Patient reports is doing well. No vaginal bleeding, no abnormal discharge. Patient does states she has some irritation on the outside of the vagina but the cream that was given last time is helping. Heading to [place] to see her family. 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, unspecified OSTEOPENIA Hypertension Osteoarthrosis, unspecified whether generalized or localized, other specified sites Other and unspecified coagulation defects Post Knee replacement Other and unspecified hyperlipidemia 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 Unspecified urinary incontinence Incontinence, stress/CYSTOCELE, RECTOCELE Urge incontinence mild PAST SURGICAL HISTORY Procedure Laterality Date APPENDECTOMY ARTHROSCOPY KNEE DIAGNOSTIC W/WO SYNOVIAL BX SPX 01-12-04 Arthroscopy, knee ARTHRP KNE CONDYLEANDPLATU MEDIALANDLAT COMPARTMENTS 11-19-04 Knee replacement, total left BACK SURGERY HX 09/2016 BIOPSY BREAST OPEN INCISIONAL 2004 Bx of breast, incisional LIG/TRNSXJ FLP TUBE ABDL/VAG APPR UNI/BI Tubal ligation PAST SURGICAL HISTORY OF 03-03-2011 left-sided frontal craniotomy for excision of meningioma FAMILY HISTORY Problem Relation Age of Onset Hypertension Mother Heart Mother Cancer Mother lung Cancer Father LUNG Heart Father Heart Brother STROKE Heart Sister Diabetes Sister Diabetes Paternal Aunt Cancer Sister CERVIX Social History Tobacco Use Smoking status: Never Smokeless tobacco: Never Substance Use Topics Alcohol use: No Drug use: No Current Outpatient Medications Medication Sig clotrimazole-betamethas one (LOTRISONE) cream Apply 1 application to affected area twice daily. leucovorin (LEUCOVORIN) 15 mg tablet Take 15 mg by mouth one time a week. methotrexate 2.5 mg tablet START BY TAKING 4 TABLETS ONCE A WEEK FOR 1-2 WEEKS THEN INCREASE TAKING 5 TABLETS ONCE A WEEK folic acid 1 mg tablet Take 2 mg by mouth once daily. clotrimazole-betamethas one (LOTRISONE) cream Apply 1 application to affected area twice daily. fluconazole (DIFLUCAN) 150 mg tablet Take one tablet today and one tablet in 3 days metroNIDAZOLE (METROGEL VAGINAL) 0.75 % Vaginal Gel Twice weekly vaginally x 6 months after initial course of flagyl miSOPROStol (CYTOTEC) 200 mcg tablet Take two tablets PO night before procedure and two tablets morning of procedure (Patient not taking: Reported on 03/21/2019 ) phenazopyridine (PYRIDIUM, GERIDIUM) 200 mg tablet estradiol (ESTRACE) 0.01 % (0.1 mg/gram) vaginal cream Apply fingertip amount nightly x 4 weeks then use 2-3 times per week nystatin (NYSTOP) powder Apply 1 application to affected area four times daily. (Patient not taking: Reported on 03/21/2019 ) mag hydrox/aluminum hyd/simeth (MAGLOX ORAL) Take by mouth. oxyCODONE IR (ROXICODONE) 5 mg immediate release tablet atorvastatin (LIPITOR) 40 mg tablet Take 1 tablet by mouth daily at bedtime. For cholesterol. (Patient taking differently: Take 20 mg by mouth daily at bedtime. For cholesterol. ) tiZANidine (ZANAFLEX) 4 mg tablet Take 1 tablet by mouth every 8 hours as needed (muscle spasms). (Patient not taking: Reported on 03/21/2019 ) hydrochlorothiazide (HYDRODIURIL, ESIDRIX) 25 mg tablet Take 1 tablet by mouth once daily. lisinopril (ZESTRIL, PRINIVIL) 10 mg tablet Take 1 tablet by mouth once daily. Aspirin 81 mg Tab Take 81 mg by mouth. Calcium Citrate-Vitamin D3 (CITRACAL + D) 315-250 mg-unit Tab Take as directed No current facility-administered medications for this visit. Allergies As of Date: 02/24/2022 Allergen Noted Reaction AMOXICILLIN 04/16/2005 Swelling ATARAX [HYDROXYZINE HCL] 04/16/2005 Swelling CEPHALEXIN 07/15/2012 Rash CODEINE 06/25/2007 GI Upset DICICLOMINE [OTHER] 04/16/2005 Swelling FLEXERIL [CYCLOBENZAPRINE HCL] 04/16/2005 Swelling ORUVAIL [KETOPROFEN] 04/16/2005 Swelling PREDNISONE 09/11/2014 Rash SUDAFED [PSEUDOEPHEDRINE] 08/24/2009 Intolerance SULFABENZAMIDE 04/16/2005 Anaphylaxis TRAMADOL 12/31/2014 Intolerance VOLTAREN [DICLOFENAC] 04/16/2005 Swelling Ful (more content not included)... Normal [facility] SCREENINGon 01-10-2022 [facility] Office Visit: [facility] 02-27-20 Dietary management education, guidance, and counseling (procedure) yes Invalid Interpretation Code [facility] Work Phone: Documentation of current medications (procedure) Done Invalid Interpretation Code [employer] Phone: [phone] Tobacco use [facility] Never smoker Invalid Interpretation Code [employer] Phone: [phone] Office Visit: [facility] 08-26-19 Fall risk assessment No Invalid Interpretation Code [employer] Phone: [phone] Lab Report: Serum Creatinine AND GFRon 07-03-2016 Creatinine [Mass/Vol] 0.96 mg/dL Invalid Interpretation Code 0.55-1.02 [email or web address] Work Phone: [phone] eGFR (non-black) 72 mL/min/{1.73_m2} Invalid Interpretation Code >60 [email or web address] Work Phone: [phone] GFR/1.73 sq M.predicted among non-blacks MDRD (S/P/Bld) [Vol rate/Area] 59 mL/min/{1.73_m2} Low >60 [email or web address] Work Phone: [phone] Glomerular Filtration rate 72 mL/min Invalid Interpretation Code >60 [employer] Phone: [phone] Replaced Document: Sebas Szymanski CG Observationson 06-26-2016 EKG QRS axis 6 deg Invalid Interpretation Code [employer] Phone: [phone] electrocardiogram interpretation 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 Invalid Interpretation Code [employer] Phone: [phone] P Fannin 32 deg Invalid Interpretation Code [employer] Phone: [phone] P wave axis, electrocardiogram 32 deg Invalid Interpretation Code [employer] Phone: [phone] CA Interval 174 ms Invalid Interpretation Code [email or web address] Work Phone: [phone] CA interval, electrocardiogram 174 ms Invalid Interpretation Code [email or web address] Work Phone: [phone] QRS axis, electrocardiogram 6 deg Invalid Interpretation Code [email or web address] Work Phone: [phone] QRS Duration 96 ms Invalid Interpretation Code [email or web address] Work Phone: [phone] QRS duration, electrocardiogram 96 ms Invalid Interpretation Code [email or web address] Work Phone: [phone] QT Interval new path ms Invalid Interpretation Code [email or web address] Work Phone: [phone] QT interval, electrocardiogram new path ms Invalid Interpretation Code [email or web address] Work Phone: [phone] QTc Potts 424 ms Invalid Interpretation Code [email or web address] Work Phone: [phone] T Fannin 42 deg Invalid Interpretation Code [email or web address] Work Phone: [phone] T wave axis, electrocardiogram 42 deg Invalid Interpretation Code [email or web address] Work Phone: [phone] Clinical Lists Update: Pre cosmetics demonstrator 06-19-2016 Tobacco use status [facility] Never smoker Invalid Interpretation Code [email or web address] Work Phone: [phone] Clinical Lists Update: Prelo cosmetics demonstrator 04-30-2016 Alkaline phosphatase (ALP) 66 U/L Invalid Interpretation Code [email or web address] Work Phone: [phone] ALP (Bld) [Catalytic activity/Vol] 66 U/L Invalid Interpretation Code [email or web address] Work Phone: [phone] ALT [Catalytic activity/Vol] 19 U/L Invalid Interpretation Code [email or web address] Work Phone: [phone] AST [Catalytic activity/Vol] 22 U/L Invalid Interpretation Code [email or web address] Work Phone: [phone] Bilirubin [Mass/Vol] 0.50 mg/dL Invalid Interpretation Code [email or web address] Work Phone: [phone] Calcium [Mass/Vol] 8.7 mg/dL Invalid Interpretation Code [email or web address] Work Phone: [phone] Chloride [Moles/Vol] 107 mmol/L Invalid Interpretation Code [email or web address] Work Phone: [phone] CO2 26.0 mmol/L Invalid Interpretation Code [email or web address] Work Phone: [phone] CO2 (BldV) [Partial pressure] 26.0 mmol/L Invalid Interpretation Code [email or web address] Work Phone: [phone] Glucose [Mass/Vol] 79 mg/dL Invalid Interpretation Code [email or web address] Work Phone: [phone] Hematocrit (Bld) [Volume fraction] 39.7 % Invalid Interpretation Code [email or web address] Work Phone: [phone] Hematocrit (HCT) 39.7 % Invalid Interpretation Code [email or web address] Work Phone: [phone] Hemoglobin (Bld) [Mass/Vol] 13.6 g/dL Invalid Interpretation Code [email or web address] Work Phone: [phone] Platelets 216 10*3/mm3 Invalid Interpretation Code [email or web address] Work Phone: [phone] Platelets (Bld) [#/Vol] 216 10*3/uL Invalid Interpretation Code [email or web address] Work Phone: [phone] Potassium [Moles/Vol] 3.4 mmol/L Invalid Interpretation Code [email or web address] Work Phone: [phone] Protein [Mass/Vol] 7.4 g/dL Invalid Interpretation Code [email or web address] Work Phone: [phone] Sodium [Moles/Vol] 138 mmol/L Invalid Interpretation Code [email or web address] Work Phone: [phone] Urea nitrogen [Mass/Vol] 22 mg/dL Invalid Interpretation Code [email or web address] Work Phone: [phone] Urea nitrogen/Creatinine [Mass ratio] 28.7 mg/mg Invalid Interpretation Code [email or web address] Work Phone: [phone] WBC (Bld) [#/Vol] 7.1 10*3/uL Invalid Interpretation Code [email or web address] Work Phone: [phone] WBC (Leukocytes) 7.1 10*3/uL Invalid Interpretation Code [email or web address] Work Phone: [phone] Clinical Lists Update: Prelo cosmetics demonstrator 11-12-2015 Cholesterol [Mass/Vol] 125 mg/dL Invalid Interpretation Code [email or web address] Work Phone: [phone] Cholesterol in HDL [Mass/Vol] 51 mg/dL Invalid Interpretation Code [email or web address] Work Phone: [phone] Cholesterol in LDL [Mass/Vol] 54 mg/dL Invalid Interpretation Code [email or web address] Work Phone: [phone] Triglyceride [Mass/Vol] 102 mg/dL Invalid Interpretation Code [facility] Work Phone: [phone] Vital Signs Date Time Vital Sign Value Performing Clinician Thaddeus mcintyre 07-21-2022 13:36-0400 Body weight 78.38 kg Zulema Willams MD Work Phone: [facility] 07-21-2022 13:36-0400 Diastolic blood pressure 60 mm[Hg] Zulema Willams MD Work Phone: [facility] 07-21-2022 13:36-0400 Systolic blood pressure 110 mm[Hg] Zulema Willams MD Work Phone: [facility] 07-09-2022 08:15-0400 Body weight 78.47 kg Zulema Willams MD Work Phone: [facility] 07-09-2022 08:15-0400 Diastolic blood pressure 60 mm[Hg] Zulema Willams MD Work Phone: [facility] 07-09-2022 08:15-0400 Systolic blood pressure 128 mm[Hg] Zulema Willams MD Work Phone: [facility] 05-28-2022 10:03-0500 Body weight 78.47 kg Zulema Willams MD Work Phone: [facility] [facility] 05-28-2022 10:03-0500 Diastolic blood pressure 64 mm[Hg] Zulema Willams MD Work Phone: [facility] 05-28-2022 10:03-0500 Systolic blood pressure 120 mm[Hg] Zulema Willams MD Work Phone: [facility] 02-24-2022 11:15-0400 Body weight 78.47 kg Zulema Willams MD Work Phone: [facility] 02-24-2022 11:15-0400 Diastolic blood pressure 62 mm[Hg] Zulemayumiko Willams MD Work Phone: [facility] 02-24-2022 11:15-0400 Systolic blood pressure 100 mm[Hg] Zulema Willams MD Work Phone: [facility] 12-25-2021 08:09-0400 Body weight 78.02 kg Zulema Willams MD Work Phone: [facility] 12-25-2021 08:09-0400 Diastolic blood pressure 64 mm[Hg] Zulema Willams MD Work Phone: [facility] 12-25-2021 08:09-0400 Systolic blood pressure 118 mm[Hg] Zulema Willams MD Work Phone: [facility] 11-13-2021 15:16-0400 Body weight 74.39 kg Zulema Willams MD Work Phone: [facility] 11-13-2021 15:16-0400 Diastolic blood pressure 64 mm[Hg] Zulema Willams MD Work Phone: [facility] 11-13-2021 15:16-0400 Systolic blood pressure 116 mm[Hg] Zulema Willams MD Work Phone: [facility] 10-02-2021 08:06-0400 Body weight 76.2 kg Zulema Willams MD Work Phone: [facility] 10-02-2021 08:06-0400 Diastolic blood pressure 60 mm[Hg] Zulema Willams MD Work Phone: [facility] 10-02-2021 08:06-0400 Systolic blood pressure 108 mm[Hg] Zulema Willams MD Work Phone: [facility] 08-21-2021 08:38-0400 Body weight 74.39 kg Zulema Willams MD Work Phone: [facility] 08-21-2021 08:38-0400 Diastolic blood pressure 62 mm[Hg] Zulema Willams MD Work Phone: [facility] 08-21-2021 08:38-0400 Systolic blood pressure 120 mm[Hg] Zulema Willams MD Work Phone: [facility] 02-26-2017 13:01-0400 BMI (Body Mass Index) 33.83 kg/m2 [facility] Work Phone: 02-26-2017 13:01-0400 BP Diastolic 66 mm[Hg] [facility] Work Phone: 02-26-2017 13:01-0400 BP Systolic 122 mm[Hg] [facility] Work Phone: 02-26-2017 13:01-0400 Height 157.48 cm [facility]ilakiki [facility] Work Phone: 02-26-2017 13:01-0400 Pulse (Heart Rate) 76 /min [facility] Work Phone: 02-26-2017 13:01-0400 Weight 83.92 kg [facility]ilakiki [facility] Work Phone: 08-25-2016 09:45-0400 Body height 157.48 cm Ramilakiki Muir [facility] Work Phone: 08-25-2016 09:45-0400 Body mass index (BMI) [Ratio] 32.77 kg/m2 Ramilakiki Mu[facility] Work Phone: 08-25-2016 09:45-0400 Body weight 81.29 kg Ramila [facility] Work Phone: 08-25-2016 09:45-0400 Diastolic blood pressure 64 mm[Hg] Ramila Muir [facility] Work Phone: 08-25-2016 09:45-0400 Heart rate 84 /min Ramila [place] Work Phone: 08-25-2016 09:45-0400 Respiratory rate 20 /min Ramila [place] Work Phone: 08-25-2016 09:45-0400 Systolic blood pressure 110 mm[Hg] Ramila [place] [employer] Work Phone: 02-06-2010 14:20-0400 Body temperature 97.8 [degF] Ramila [place] Work Phone: Encounters Encounter Date Encounter Type Care Provider Facility Start: 01-29-2023 Documentation procedure Mammog chucky Coordinator [facility] Start: 01-29-2023 Letter encounter Mammography Coordinator [facility] Department Start: 2023 End: 2023 ambulatory OLGA HURST Facility:[facility] Start: 07-21-2022 End: 07-22-2022 ambulatory ZULEMA WILLAMS Facility:[facility] Start: 07-21-2022 End: 07-21-2022 Patient encounter procedure Zulema Willams MD Work Phone: OB/Gynecology Comment on above: Female genital prola pse, unspecified type (Primary Dx) Start: 07-09-2022 End: 07-09-2022 ambulatory ZULEMA WILLAMS Facility:[facility] Start: 07-09-2022 End: 07-09-2022 Patient encounter procedure Zulema Willams MD Work Phone: OB/Gynecology Comment on above: Vaginal inflammation from pessary, initial encounter (HCC) (Primary Dx); Female genital prolapse, unspecified type; Pessary maintenance Start: 05-28-2022 End: 05-28-2022 ambulatory ZULEMA WILLAMS Facility:[facility] Start: 05-28-2022 End: 05-28-2022 Patient encounter procedure Zulema Willams MD Work Phone: OB/Gynecology Comment on above: Female genital prola pse, unspecified type (Primary Dx); Pessary maintenance Start: 04-07-2022 End: 04-07-2022 ambulatory ZULEMA WILLAMS Facility:[facility] Start: 02-24-2022 End: 02-24-2022 ambulatory ZULEMA WILLAMS Facility:[facility] Start: 02-24-2022 End: 02-24-2022 Patient encounter procedure Zulema Willams MD Work Phone: OB/Gynecology Comment on above: Pessary maintenance (Primary Dx); Female genital prolapse, unspecified type Start: 01-10-2022 Documentation procedure Mammog chucky Coordinator [facility] Start: 01-10-2022 Letter encounter Mammography Coordinator [facility] Department Start: 01-10-2022 End: 01-10-2022 Subsequent hospital visit by physician Screen Mammo [facility] Start: 12-25-2021 End: 12-25-2021 Patient encounter procedure Zulema Willams MD Work Phone: OB/Gynecology Comment on above: Female genital prola pse, unspecified type (Primary Dx); Pessary maintenance; Vaginal irritation from pessary (HCC); Yeast dermatitis Start: 11-13-2021 End: 11-13-2021 Patient encounter procedure Zulema Willams MD Work Phone: OB/Gynecology Comment on above: Pessary maintenance (Primary Dx); Female genital prolapse, unspecified type Start: 10-02-2021 End: 10-02-2021 Patient encounter procedure Zulema Willams MD Work Phone: OB/Gynecology Comment on above: Pessary maintenance (Primary Dx); Female genital prolapse, unspecified type Start: 08-21-2021 End: 08-21-2021 Patient encounter procedure Zulema Willams MD Work Phone: OB/Gynecology Comment on above: Pessary maintenance (Primary Dx); Female genital prolapse, unspecified type Procedures Date Procedure Procedure Detail Performing Clinician Start: 01-10-2022 Screening mammograph y bi 2-view breast inc cad Olga Hurst Work Phone: Start: 02-26-2017 End: 02-26-2017 Follow Up Appt 1 year Daphnie buckner PA-C Work Phone: Start: 02-26-2017 End: 02-26-2017 PFM Daphnie Kline PA-C Work Phone: Start: 08-25-2016 End: 02-17-2017 Duplex scan extracranial art compl bi study Chaitanya Puente Bass COMPOSITE TECHNICIAN-C Start: 08-25-2016 End: 08-25-2016 Follow Up Appt 6 months Chaitanya Puente Bass COMPOSITE TECHNICIAN -C Start: 08-25-2016 End: 08-25-2016 PFM Chaitanya Puente Bass COMPOSITE TECHNICIAN-C Start: 08-25-2016 End: 08-25-2016 Documentation of current medications Ramila Muir Start: 08-25-2016 End: 08-25-2016 Follow Up Appt 6 months Chaitanya Puente Bass COMPOSITE TECHNICIAN -C Start: 08-25-2016 End: 08-25-2016 PFM Chaitanya Puente Bass COMPOSITE TECHNICIAN-C Start: 07-01-2016 End: 07-04-2016 Ct head/brain w/o & w/contrast material Rubin Arriaga MD Start: 07-01-2016 End: 07-04-2016 Ct head/brain w/o & w/contrast material Rubin Arriaga MD Start: 06-26-2016 End: 06-26-2016 Dietary management education, guidance, and counseling Ramila Muir Start: 06-26-2016 End: 06-26-2016 Ecg routine ecg w/least 12 lds w/i&r Rubin Arriaga MD Start: 06-26-2016 End: 08-19-2016 Echocardiography Rubin Arriaga MD Start: 06-26-2016 End: 06-26-2016 Follow Up Appt 2 months Rubin Arriaga MD Start: 06-26-2016 End: 06-26-2016 MMM Rubin Arriaga MD Start: 06-26-2016 End: 02-17-2017 Xtrnl mobile cv telemetry w/i&report 30 days Rubin Arriaga MD Start: 06-26-2016 End: 06-26-2016 Ecg routine ecg w/least 12 lds w/i&r Rubin Arriaga MD Start: 06-26-2016 End: 08-19-2016 Echocardiography Rubin Arriaga MD Start: 06-26-2016 End: 06-26-2016 Follow Up Appt 2 months Rubin Arriaga MD Start: 06-26-2016 End: 06-26-2016 MMM Rubin Arriaga MD Plan of Treatment Date Care Activity Detail Author Start: 03-16-2023 Covid-19 Vaccine (6 - Pfizer risk series) Covid-19 Vaccine (6 - Pfizer risk series) [facility] Start: 04-27-2022 ADVANCE DIRECTIVE DISCUSSION ADVANCE DIRECTIVE DISCUSSION [facility] Start: 04-27-2022 DEPRESSION ASSESSMENT DEPRESSION ASSESSMENT [facility] Start: 01-01-2022 COVID-19 VACCINE (5 - Booster for Pfizer series) COVID-19 VACCINE (5 - Booster for Pfizer series) [facility] Start: 12-26-2021 Influenza vaccination INFLUENZA (#1) [facility] Start: 05-07-2021 COVID-19 VACCINE (4 - Booster for Pfizer series) COVID-19 VACCINE (4 - Booster for Pfizer series) [facility] Start: 04-27-2021 ADVANCE DIRECTIVE DISCUSSION ADVANCE DIRECTIVE DISCUSSION [facility] Start: 04-27-2021 DEPRESSION ASSESSMENT DEPRESSION ASSESSMENT [facility] Start: 08-27-2018 FECAL OCCULT BLOOD FECAL OCCULT BLOOD [facility] Start: 03-15-2018 End: 03-15-2018 Appointment Appointment [facility] Work Phone: Start: 10-05-2017 DIABETES SCREEN DIABETES SCREEN [facility] Start: 10-05-2017 Diabetes Screening Diabetes Screening [facility] Start: 08-31-2017 End: 08-31-2017 Patient encounter procedure Appointment [facility] Work Phone: Start: 02-26-2017 End: 02-26-2017 Follow Up Appt 1 year Follow Up Appt 1 year [facility] [employer] [facility] [facility] Work Phone: Start: 02-26-2017 End: 02-26-2017 PFM PFM [facility] Work Phone: Start: 02-26-2017 End: 02-26-2017 Patient encounter procedure Appointment [facility] Work Phone: Start: 08-25-2016 End: 08-25-2016 Duplex scan extracranial art compl bi study Carotid Duplex Bilateral - Routine [facility] Work Phone: Start: 08-25-2016 End: 08-25-2016 Follow Up Appt 6 months Follow Up Appt 6 months [facility] Work Phone: Start: 08-25-2016 End: 08-25-2016 PFM PFM [facility] Work Phone: Start: 08-25-2016 End: 08-25-2016 Patient encounter procedure Appointment [facility] Work Phone: Start: 08-25-2016 End: 08-25-2016 Duplex scan extracranial art compl bi study Carotid Duplex Bilateral - Routine [facility] Work Phone: Start: 08-25-2016 End: 08-25-2016 Follow Up Appt 6 months Follow Up Appt 6 months [facility] Work Phone: Start: 08-25-2016 End: 08-25-2016 PFM PFM [facility] Work Phone: Start: 06-26-2016 End: 06-26-2016 Ct head/brain w/o & w/contrast material CT Head/Brain with and without Contrast [employer] [facility] Work Phone: Start: 06-26-2016 End: 06-26-2016 Ecg routine ecg w/least 12 lds w/i&r EKG (In office) [employer] [facility] Work Phone: Start: 06-26-2016 End: 06-26-2016 Echocardiography Echocardiogram (complete) [facility] Work Phone: Start: 06-26-2016 End: 06-26-2016 Follow Up Appt 2 months Follow Up Appt 2 months [facility] Work Phone: Start: 06-26-2016 End: 06-26-2016 MMM MMM [employer] [facility] Work Phone: Start: 06-26-2016 End: 06-26-2016 XtrTaglocity mobile cv telemetry w/i&report 30 days 30 Day Holter Monitor [employer] [facility] Work Phone: Start: 06-26-2016 End: 06-26-2016 Ct head/brain w/o & w/contrast material CT Head/Brain with and without Contrast [employer] [facility] Work Phone: Start: 06-26-2016 End: 06-26-2016 Ecg routine ecg w/least 12 lds w/i&r EKG (In office) [employer] Work Phone: Start: 06-26-2016 End: 06-26-2016 Echocardiography Echocardiogram (complete) [employer] Work Phone: Start: 06-26-2016 End: 06-26-2016 Follow Up Appt 2 months Follow Up Appt 2 months [employer] [facility] Work Phone: Start: 06-26-2016 End: 06-26-2016 MMM MMM [email or web address] Work Phone: Start: 06-26-2016 End: 06-26-2016 Myrl mobile cv telemetry w/i&report 30 days 30 Day Holter Monitor [employer] [facility] Work Phone: Start: 10-18-[address] [facility] Start: 01-19-2007 Pneumococcal Vaccine: 65+ (2 - PCV) Pneumococcal Vaccine: 65+ (2 - PCV) [facility] Start: 01-19-2007 PNEUMOCOCCAL: 65+ (2 - PCV) PNEUMOCOCCAL: 65+ (2 - PCV) [facility] Start: 1987 SHINGRIX VACCINE (1 of 2) SHINGRIX VACCINE (1 of 2) [facility] Start: 01-29-1956 SHINGRIX VACCINE (1 of 2) SHINGRIX VACCINE (1 of 2) [facility] Immunizations Immunization Date Immunization Notes Care Provider Fa luz 07-19-2020 COVID-19 vaccine, ag e 12+ yr (PFIZER-BIONTECH - PURPLE TOP) Zulema Willams MD Work Phone: [facility] 06-26-2020 COVID-19 vaccine, ag e 12+ yr (PFIZER-BIONTECH - PURPLE TOP) Zulema Willams MD Work Phone: [facility] 02-01-2011 influenza virus vacc ine, unspecified formulation Zulema Willams MD Work Phone: [facility] Work Phone: 02-06-2010 influenza virus vacc ine, unspecified formulation Zulema Willams MD Work Phone: [facility] Work Phone: 02-06-2009 influenza virus vacc ine, unspecified formulation Zulema Willams MD Work Phone: [facility] Work Phone: 03-01-2008 influenza virus vacc ine, unspecified formulation Zulema Willams MD Work Phone: [facility] Work Phone: 03-02-2007 influenza virus vacc ine, unspecified formulation Zulema Willams MD Work Phone: [facility] Work Phone: 03-02-2006 influenza virus vacc ine, unspecified formulation Zulema Willams MD Work Phone: [facility] Work Phone: 01-19-2006 pneumococcal polysaccharide vaccine, 23 valent Zulema Willams MD Work Phone: [facility] Work Phone: 10-17-2005 diphtheria and tetan us toxoids, adsorbed for pediatric use Zulema Willams MD Work Phone: [facility] Work Phone: 03-06-2005 influenza virus vacc ine, unspecified formulation Zulema Willams MD Work Phone: [facility] Work Phone: Payers Date Payer Category Payer Medicare [employer] MEDICARE A ETNA MEDICARE PPO [id number] 2021-Present [phone] [address] [place] [address] PPO [id number] 2021 Medicare A[employer] MEDICARE A ETNA MEDICARE PPO [id number] 2021-Present [phone] [address] [place] [address] PPO [id number] 2021 Medicare [id number] Social History Date Type Detail Facility Start: 12-25-2021 Tobacco smoking stat [facility] Never smoked tobacco [facility] Start: 08-21-2021 End: 07-21-2022 Alcohol intake Current non-drinker of alcohol (finding) [facility] Start: 1935 Sex Assigned At Not on file [facility] Start: 09-22-2021 End: 01-03-2022 Exposure to SARS-CoV-2 (event) Not sure [facility] Start: 12-25-2021 Tobacco use and exposure Smoke less tobacco non-user [facility] Start: 05-19-2022 End: 07-21-2022 History of Social function [facility] Start: 05-19-2022 End: 07-21-2022 Tobacco use panel [facility] National Score (1-10 0), lower number is lower risk 48 [facility] Medical Equipment Procedure Code Equipment Code Equipment Origin al Text Equipment Identifier Dates Graft Dura 2x2in Ptch rb - [id number] Start: 03-03-2011 Comment on above: Description: duragen plus Lauren Hole Cover 10mm - [id number] Start: 03-03-2011 Comment on above: Description: lauren ho le cover Plate Micro 2-Ho le 10mm Bar - [id number] Start: 03-03-2011 Comment on above: Description: 2-hole plate Screw Self Drilling 1.5x4mm - [id number] Start: 03-03-2011 Comment on above: Description: screw Clinical Notes 03-27-2009 to 01-29-2023 Letter - Coordinator, Mammography - 01/29/2023 12:19 PM EDTDeyumiko Willams MD - 07/21/2022 1:23 PM EDTZulema Willams MD - 07/09/2022 8:09 AM EDT Note Date & Type Note Facility 01-29-2023 Miscellaneous Notes January 30, 2023 PID: [id number] Ba Senior [address] [place] [address] Dear Ms. Senior, We are pleased to inform you that the results of your recent breast imaging exam on 2023 are normal. Early detection of cancer is very important. We also understand recommendations regarding breast cancer screening are controversial. Please discuss with your primary care provider which strategy is best for you and whether a mammogram is right for you. Your imaging studies and report will be kept on file at [facility] as part of your permanent medical record and are available for your continuing care. Thank you for allowing us to help in meeting your health care needs. Sincerely, Dr. Bella Interpreting Radiologist [facility] (Normal over 40) documented in this encounter [facility] 2023 Note HNO ID: [id number] Author: Yvette Moreno, Mammo Tech Service: ? Author Type: It Consultant Type: Progress Notes Filed: 2023 2:32 PM Note Text: Radiology Service Progress Note PATIENT NAME: Ba Senior DATE OF SERVICE: 2023 TIME: 2:02 PM PATIENT IDENTITY VERIFICATION COMPLETED USING TWO (2) IDENTIFIERS: Name and Date of confirmed by patient verbally. FALL SCREENING: Has the patient had 2 falls in the last year or 1 fall with injury or currently using an Ambulatory Assistive Device (Walker, Cane, Wheelchair, Crutches, etc.)? No PATIENT GENDER DATA: Female. status: : No status: NO. PATIENT RELEVANT IMPLANT DATA REVIEWED: Not Applicable RADIOLOGY DEPARTMENT: Mammography PERIPHERAL IV DATA: Not applicable SIGNED BY: Yvette Moreno Aaron Andrews [employer] 2023 2:02 PM [facility] 07-21-2022 Note HNO ID: [id number] Author: Zulema Willams MD Service: ? Author Type: Physician Type: Progress Notes Filed: 07/21/2022 2:24 PM Note Text: Information Technology Specialist offered: declines Ba Senior is a 87 year old female who presents for 3 maintenance. Patient reports had no problems over the past 2 weeks since the pessary has been out. She does not notice any difference in her urinary habits. She denies having any vaginal pressure or bulge hanging down from the vagina. She has no bleeding. She has no abnormal discharge or odors. 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, unspecified OSTEOPENIA Hypertension Osteoarthrosis, unspecified whether generalized or localized, other specified sites Other and unspecified coagulation defects Post Knee replacement Other and unspecified hyperlipidemia 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 Unspecified urinary incontinence Incontinence, stress/CYSTOCELE, RECTOCELE Urge incontinence mild PAST SURGICAL HISTORY Procedure Laterality Date APPENDECTOMY ARTHROSCOPY KNEE DIAGNOSTIC W/WO SYNOVIAL BX SPX 01-12-04 Arthroscopy, knee ARTHRP KNE CONDYLEANDPLATU MEDIALANDLAT COMPARTMENTS 11-19-04 Knee replacement, total left BACK SURGERY HX 09/2016 BIOPSY BREAST OPEN INCISIONAL 2004 Bx of breast, incisional LIG/TRNSXJ FLP TUBE ABDL/VAG APPR UNI/BI Tubal ligation PAST SURGICAL HISTORY OF 03-03-2011 left-sided frontal craniotomy for excision of meningioma FAMILY HISTORY Problem Relation Age of Onset Hypertension Mother Heart Mother Cancer Mother lung Cancer Father LUNG Heart Father Heart Brother STROKE Heart Sister Diabetes Sister Diabetes Paternal Aunt Cancer Sister CERVIX Social History Tobacco Use Smoking status: Never Smokeless tobacco: Never Substance Use Topics Alcohol use: No Drug use: No Current Outpatient Medications Medication Sig gabapentin (NEURONTIN) 100 mg capsule TAKE 1 CAPSULE BY MOUTH EVERY DAY in the evening clotrimazole-betamethasone (LOTRISONE) cream Apply 1 application to affected area twice daily. leucovorin (LEUCOVORIN) 15 mg tablet Take 15 mg by mouth one time a week. methotrexate 2.5 mg tablet START BY TAKING 4 TABLETS ONCE A WEEK FOR 1-2 WEEKS THEN INCREASE TAKING 5 TABLETS ONCE A WEEK folic acid 1 mg tablet Take 2 mg by mouth once daily. clotrimazole-betamethasone (LOTRISONE) cream Apply 1 application to affected area twice daily. fluconazole (DIFLUCAN) 150 mg tablet Take one tablet today and one tablet in 3 days metroNIDAZOLE (METROGEL VAGINAL) 0.75 % Vaginal Gel Twice weekly vaginally x 6 months after initial course of flagyl miSOPROStol (CYTOTEC) 200 mcg tablet Take two tablets PO night before procedure and two tablets morning of procedure phenazopyridine (PYRIDIUM, GERIDIUM) 200 mg tablet estradiol (ESTRACE) 0.01 % (0.1 mg/gram) vaginal cream Apply fingertip amount nightly x 4 weeks then use 2-3 times per week nystatin (NYSTOP) powder Apply 1 application to affected area four times daily. mag hydrox/aluminum hyd/simeth (MAGLOX ORAL) Take by mouth. oxyCODONE IR (ROXICODONE) 5 mg immediate release tablet atorvastatin (LIPITOR) 40 mg tablet Take 1 tablet by mouth daily at bedtime. For cholesterol. (Patient taking differently: Take 20 mg by mouth daily at bedtime. For cholesterol.) tiZANidine (ZANAFLEX) 4 mg tablet Take 1 tablet by mouth every 8 hours as needed (muscle spasms). hydrochlorothiazide (HYDRODIURIL, ESIDRIX) 25 mg tablet Take 1 tablet by mouth once daily. lisinopril (ZESTRIL, PRINIVIL) 10 mg tablet Take 1 tablet by mouth once daily. Aspirin 81 mg Tab Take 81 mg by mouth. Calcium Citrate-Vitamin D3 (CITRACAL + D) 315-250 mg-unit Tab Take as directed No current facility-administered medications for this visit. Allergies As of Date: 07/21/2022 Allergen Noted Reaction AMOXICILLIN 04/16/2005 Swelling ATARAX [HYDROXYZINE HCL] 04/16/2005 Swelling CEPHALEXIN 07/15/2012 Rash CODEINE 06/25/2007 GI Upset DICICLOMINE [OTHER] 04/16/2005 Swelling FLEXERIL [CYCLOBENZAPRINE HCL] 04/16/2005 Swelling ORUVAIL [KETOPROFEN] 04/16/2005 Swelling PREDNISONE 09/11/2014 Rash SUDAFED [PSEUDOEPHEDRINE] 08/24/2009 Intolerance SULFABENZAMIDE 04/16/2005 Anaphylaxis TRAMADOL 12/31/2014 Intolerance VOLTAREN [DICLOFENAC] 04/16/2005 Swelling Fully Assessed 07/21/2022 REVIEW OF SYSTEMS Abdomen: no pain Bladder: no dysuria. Still with incontinence Expanded ROS: GENERAL: Negative for fever Allergies and current medication updated:Yes EXAM: BP 110/60 Wt 172 lb 12.8 oz (78.4kg) GENERAL: ple (more content not included)... [facility] 07-21-2022 History of Presen t illness Narrative Information Technology Specialist offered: godwin Senior is a 87 year old female who presents for 3 maintenance. Patient reports had no problems over the past 2 weeks since the pessary has been out. She does not notice any difference in her urinary habits. She denies having any vaginal pressure or bulge hanging down from the vagina. She has no bleeding. She has no abnormal discharge or odors. 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, unspecified OSTEOPENIA Hypertension Osteoarthrosis, unspecified whether generalized or localized, other specified sites Other and unspecified coagulation defects Post Knee replacement Other and unspecified hyperlipidemia 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 Unspecified urinary incontinence Incontinence, stress/CYSTOCELE, RECTOCELE Urge incontinence mild PAST SURGICAL HISTORY Procedure Laterality Date APPENDECTOMY ARTHROSCOPY KNEE DIAGNOSTIC W/WO SYNOVIAL BX SPX 01-12-04 Arthroscopy, knee ARTHRP KNE CONDYLE&PLATU MEDIAL&LAT COMPARTMENTS 11-19-04 Knee replacement, total left BACK SURGERY HX 09/2016 BIOPSY BREAST OPEN INCISIONAL 2004 Bx of breast, incisional LIG/TRNSXJ FLP TUBE ABDL/VAG APPR UNI/BI Tubal ligation PAST SURGICAL HISTORY OF 03-03-2011 left-sided frontal craniotomy for excision of meningioma FAMILY HISTORY Problem Relation Age of Onset Hypertension Mother Heart Mother Cancer Mother lung Cancer Father LUNG Heart Father Heart Brother STROKE Heart Sister Diabetes Sister Diabetes Paternal Aunt Cancer Sister CERVIX Social History Tobacco Use Smoking status: Never Smokeless tobacco: Never Substance Use Topics Alcohol use: No Drug use: No Current Outpatient Medications Medication Sig gabapentin (NEURONTIN) 100 mg capsule TAKE 1 CAPSULE BY MOUTH EVERY DAY in the evening clotrimazole-betamethasone (LOTRISONE) cream Apply 1 application to affected area twice daily. leucovorin (LEUCOVORIN) 15 mg tablet Take 15 mg by mouth one time a week. methotrexate 2.5 mg tablet START BY TAKING 4 TABLETS ONCE A WEEK FOR 1-2 WEEKS THEN INCREASE TAKING 5 TABLETS ONCE A WEEK folic acid 1 mg tablet Take 2 mg by mouth once daily. clotrimazole-betamethasone (LOTRISONE) cream Apply 1 application to affected area twice daily. fluconazole (DIFLUCAN) 150 mg tablet Take one tablet today and one tablet in 3 days metroNIDAZOLE (METROGEL VAGINAL) 0.75 % Vaginal Gel Twice weekly vaginally x 6 months after initial course of flagyl miSOPROStol (CYTOTEC) 200 mcg tablet Take two tablets PO night before procedure and two tablets morning of procedure phenazopyridine (PYRIDIUM, GERIDIUM) 200 mg tablet estradiol (ESTRACE) 0.01 % (0.1 mg/gram) vaginal cream Apply fingertip amount nightly x 4 weeks then use 2-3 times per week nystatin (NYSTOP) powder Apply 1 application to affected area four times daily. mag hydrox/aluminum hyd/simeth (MAGLOX ORAL) Take by mouth. oxyCODONE IR (ROXICODONE) 5 mg immediate release tablet atorvastatin (LIPITOR) 40 mg tablet Take 1 tablet by mouth daily at bedtime. For cholesterol. (Patient taking differently: Take 20 mg by mouth daily at bedtime. For cholesterol.) tiZANidine (ZANAFLEX) 4 mg tablet Take 1 tablet by mouth every 8 hours as needed (muscle spasms). hydrochlorothiazide (HYDRODIURIL, ESIDRIX) 25 mg tablet Take 1 tablet by mouth once daily. lisinopril (ZESTRIL, PRINIVIL) 10 mg tablet Take 1 tablet by mouth once daily. Aspirin 81 mg Tab Take 81 mg by mouth. Calcium Citrate-Vitamin D3 (CITRACAL + D) 315-250 mg-unit Tab Take as directed No current facility-administered medications for this visit. Allergies As of Date: 07/21/2022 Allergen Noted Reaction AMOXICILLIN 04/16/2005 Swelling ATARAX [HYDROXYZINE HCL] 04/16/2005 Swelling CEPHALEXIN 07/15/2012 Rash CODEINE 06/25/2007 GI Upset DICICLOMINE [OTHER] 04/16/2005 Swelling FLEXERIL [CYCLOBENZAPRINE HCL] 04/16/2005 Swelling ORUVAIL [KETOPROFEN] 04/16/2005 Swelling PREDNISONE 09/11/2014 Rash SUDAFED [PSEUDOEPHEDRINE] 08/24/2009 Intolerance SULFABENZAMIDE 04/16/2005 Anaphylaxis TRAMADOL 12/31/2014 Intolerance VOLTAREN [DICLOFENAC] 04/16/2005 Swelling Fully Assessed 07/21/2022 REVIEW OF SYSTEMS Abdomen: no pain Bladder: no dysuria. Still with incontinence Expanded ROS: GENERAL: Negative for fever Allergies and current medication updated:Yes EXAM: BP 110/60 Wt 172 lb 12.8 oz (78.4kg) GENERAL: pleasant, female in no apparent distress HEENT: Normocephalic and atraumatic PELVIC: external genitalia normal, normal Bartholin's glands, urethra, Denmark's glands, no vulvar lesions, no cervical lesions, physiologic discharge present, normal appearing perineal body and perianal region, atrophic changes. NO ULCERATIONS, no bleeding. NEURO: alert and oriented x3,exam grossly non-focal EXTREMITIES: normal ASSESSMENT AND PLAN: Encounter Diagnosis ICD-10-CM 1. Female genital prolapse, unspecified type N81.9 2. After Discussion with the patient decision to leave out the pessary at this time. She will call the office if decides to have it replaced or starts experiencing other symptoms such as vaginal pressure, prolapse that she can feel at the introitus, worsening urinary symptoms. At this time she reports she did well over the last 2 weeks and does not feel is necessary to wear it again at this time. She will keep it and notify the office if that changes. I spent a total of 20 minutes on the date of the service which included preparing to see the patient, [id number] patient care, completing clinical documentation, obtaining and/or reviewing separately obtained history, performing a medically appropriate examination, and counseling and educating the patient/family/caregiver Medical Decision Making: Medical Decision Making Level: 1 - N/A Zulema Lemus MD documented in this encounter [facility] 07-09-2022 Note HNO ID: [id number] Author: Zulema Willams MD Service: ? Author Type: Physician Type: Progress Notes Filed: 07/09/2022 8:36 AM Note Text: Ba Senior is a 87 year old who presents today for pessary insertion/cleaning. She wears a ring with support pessary. She returns today some spotting occasionally. She has not had problems with the pessary. She has not had vaginal discharge. Denies Odors, discharge. EXAM: pleasant, well developed, well nourished, in no apparent distress Pelvic: Bartholin's, urethra and Denmark's glands were normal. The ring with support pessary was removed. Vaginal exam indicated erythema and no active bleeding- no ulcerations. Silver nitrate applied and will leave pessary out at this time. . 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 2) RTO 2 wks I spent a total of 20 minutes on the date of the service which included preparing to see the patient, [id number] patient care, completing clinical documentation, obtaining and/or reviewing separately obtained history, performing a medically appropriate examination, and counseling and educating the patient/family/caregiver. Zulema Lemus MD [facility] 07-09-2022 History of Presen t illness Narrative Ba Senior is a 87 year old who presents today for pessary insertion/cleaning. She wears a ring with support pessary. She returns today some spotting occasionally. She has not had problems with the pessary. She has not had vaginal discharge. Denies Odors, discharge. EXAM: pleasant, well developed, well nourished, in no apparent distress Pelvic: Bartholin's, urethra and Denmark's glands were normal. The ring with support pessary was removed. Vaginal exam indicated erythema and no active bleeding- no ulcerations. Silver nitrate applied and will leave pessary out at this time. . 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 2) RTO 2 wks I spent a total of 20 minutes on the date of the service which included preparing to see the patient, [id number] patient care, completing clinical documentation, obtaining and/or reviewing separately obtained history, performing a medically appropriate examination, and counseling and educating the patient/family/caregiver. Zulema Lemus MD documented in this encounter [facility] 05-28-2022 Note HNO ID: [id number] Author: Zulema Willams MD Service: ? Author Type: Physician Type: Progress Notes Filed: 05/28/2022 12:08 PM Note Text: Information Technology Specialist offered: Patient declines. Ba Senior is a 87 year old female who presents for pessary maintenance. Patient reports is doing well. Denies any vaginal bleeding, foul odor. Patient reports minimal itching on the outside of the vagina at times but nothing that is bothersome. Patient offers no other concerns today. 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, unspecified OSTEOPENIA Hypertension Osteoarthrosis, unspecified whether generalized or localized, other specified sites Other and unspecified coagulation defects Post Knee replacement Other and unspecified hyperlipidemia 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 Unspecified urinary incontinence Incontinence, stress/CYSTOCELE, RECTOCELE Urge incontinence mild PAST SURGICAL HISTORY Procedure Laterality Date APPENDECTOMY ARTHROSCOPY KNEE DIAGNOSTIC W/WO SYNOVIAL BX SPX 01-12-04 Arthroscopy, knee ARTHRP KNE CONDYLEANDPLATU MEDIALANDLAT COMPARTMENTS 11-19-04 Knee replacement, total left BACK SURGERY HX 09/2016 BIOPSY BREAST OPEN INCISIONAL 2004 Bx of breast, incisional LIG/TRNSXJ FLP TUBE ABDL/VAG APPR UNI/BI Tubal ligation PAST SURGICAL HISTORY OF 03-03-2011 left-sided frontal craniotomy for excision of meningioma FAMILY HISTORY Problem Relation Age of Onset Hypertension Mother Heart Mother Cancer Mother lung Cancer Father LUNG Heart Father Heart Brother STROKE Heart Sister Diabetes Sister Diabetes Paternal Aunt Cancer Sister CERVIX Social History Tobacco Use Smoking status: Never Smokeless tobacco: Never Substance Use Topics Alcohol use: No Drug use: No Current Outpatient Medications Medication Sig gabapentin (NEURONTIN) 100 mg capsule TAKE 1 CAPSULE BY MOUTH EVERY DAY in the evening clotrimazole-betamethasone (LOTRISONE) cream Apply 1 application to affected area twice daily. leucovorin (LEUCOVORIN) 15 mg tablet Take 15 mg by mouth one time a week. methotrexate 2.5 mg tablet START BY TAKING 4 TABLETS ONCE A WEEK FOR 1-2 WEEKS THEN INCREASE TAKING 5 TABLETS ONCE A WEEK folic acid 1 mg tablet Take 2 mg by mouth once daily. clotrimazole-betamethasone (LOTRISONE) cream Apply 1 application to affected area twice daily. fluconazole (DIFLUCAN) 150 mg tablet Take one tablet today and one tablet in 3 days metroNIDAZOLE (METROGEL VAGINAL) 0.75 % Vaginal Gel Twice weekly vaginally x 6 months after initial course of flagyl miSOPROStol (CYTOTEC) 200 mcg tablet Take two tablets PO night before procedure and two tablets morning of procedure (Patient not taking: Reported on 03/21/2019 ) phenazopyridine (PYRIDIUM, GERIDIUM) 200 mg tablet estradiol (ESTRACE) 0.01 % (0.1 mg/gram) vaginal cream Apply fingertip amount nightly x 4 weeks then use 2-3 times per week nystatin (NYSTOP) powder Apply 1 application to affected area four times daily. (Patient not taking: Reported on 03/21/2019 ) mag hydrox/aluminum hyd/simeth (MAGLOX ORAL) Take by mouth. oxyCODONE IR (ROXICODONE) 5 mg immediate release tablet atorvastatin (LIPITOR) 40 mg tablet Take 1 tablet by mouth daily at bedtime. For cholesterol. (Patient taking differently: Take 20 mg by mouth daily at bedtime. For cholesterol. ) tiZANidine (ZANAFLEX) 4 mg tablet Take 1 tablet by mouth every 8 hours as needed (muscle spasms). (Patient not taking: Reported on 03/21/2019 ) hydrochlorothiazide (HYDRODIURIL, ESIDRIX) 25 mg tablet Take 1 tablet by mouth once daily. lisinopril (ZESTRIL, PRINIVIL) 10 mg tablet Take 1 tablet by mouth once daily. Aspirin 81 mg Tab Take 81 mg by mouth. Calcium Citrate-Vitamin D3 (CITRACAL + D) 315-250 mg-unit Tab Take as directed No current facility-administered medications for this visit. Allergies As of Date: 05/28/2022 Allergen Noted Reaction AMOXICILLIN 04/16/2005 Swelling ATARAX [HYDROXYZINE HCL] 04/16/2005 Swelling CEPHALEXIN 07/15/2012 Rash CODEINE 06/25/2007 GI Upset DICICLOMINE [OTHER] 04/16/2005 Swelling FLEXERIL [CYCLOBENZAPRINE HCL] 04/16/2005 Swelling ORUVAIL [KETOPROFEN] 04/16/2005 Swelling PREDNISONE 09/11/2014 Rash SUDAFED [PSEUDOEPHEDRINE] 08/24/2009 Intolerance SULFABENZAMIDE 04/16/2005 Anaphylaxis TRAMADOL 12/31/2014 Intolerance VOLTAREN [DICLOFENAC] 04/16/2005 Swelling Fully Assessed 04/07/2022 REVIEW OF SYSTEMS Abdomen: no pain Bladder: no dysuria.. Expanded ROS: no fever Allergies and current medication updated:Yes EXAM: BP (more content not included)... [facility] 05-28-2022 History of Presen t illness Narrative Information Technology Specialist offered: Patient declines. Ba Senior is a 87 year old female who presents for pessary maintenance. Patient reports is doing well. Denies any vaginal bleeding, foul odor. Patient reports minimal itching on the outside of the vagina at times but nothing that is bothersome. Patient offers no other concerns today. 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, unspecified OSTEOPENIA Hypertension Osteoarthrosis, unspecified whether generalized or localized, other specified sites Other and unspecified coagulation defects Post Knee replacement Other and unspecified hyperlipidemia 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 Unspecified urinary incontinence Incontinence, stress/CYSTOCELE, RECTOCELE Urge incontinence mild PAST SURGICAL HISTORY Procedure Laterality Date APPENDECTOMY ARTHROSCOPY KNEE DIAGNOSTIC W/WO SYNOVIAL BX SPX 01-12-04 Arthroscopy, knee ARTHRP KNE CONDYLE&PLATU MEDIAL&LAT COMPARTMENTS 11-19-04 Knee replacement, total left BACK SURGERY HX 09/2016 BIOPSY BREAST OPEN INCISIONAL 2004 Bx of breast, incisional LIG/TRNSXJ FLP TUBE ABDL/VAG APPR UNI/BI Tubal ligation PAST SURGICAL HISTORY OF 03-03-2011 left-sided frontal craniotomy for excision of meningioma FAMILY HISTORY Problem Relation Age of Onset Hypertension Mother Heart Mother Cancer Mother lung Cancer Father LUNG Heart Father Heart Brother STROKE Heart Sister Diabetes Sister Diabetes Paternal Aunt Cancer Sister CERVIX Social History Tobacco Use Smoking status: Never Smokeless tobacco: Never Substance Use Topics Alcohol use: No Drug use: No Current Outpatient Medications Medication Sig gabapentin (NEURONTIN) 100 mg capsule TAKE 1 CAPSULE BY MOUTH EVERY DAY in the evening clotrimazole-betamethasone (LOTRISONE) cream Apply 1 application to affected area twice daily. leucovorin (LEUCOVORIN) 15 mg tablet Take 15 mg by mouth one time a week. methotrexate 2.5 mg tablet START BY TAKING 4 TABLETS ONCE A WEEK FOR 1-2 WEEKS THEN INCREASE TAKING 5 TABLETS ONCE A WEEK folic acid 1 mg tablet Take 2 mg by mouth once daily. clotrimazole-betamethasone (LOTRISONE) cream Apply 1 application to affected area twice daily. fluconazole (DIFLUCAN) 150 mg tablet Take one tablet today and one tablet in 3 days metroNIDAZOLE (METROGEL VAGINAL) 0.75 % Vaginal Gel Twice weekly vaginally x 6 months after initial course of flagyl miSOPROStol (CYTOTEC) 200 mcg tablet Take two tablets PO night before procedure and two tablets morning of procedure (Patient not taking: Reported on 03/21/2019 ) phenazopyridine (PYRIDIUM, GERIDIUM) 200 mg tablet estradiol (ESTRACE) 0.01 % (0.1 mg/gram) vaginal cream Apply fingertip amount nightly x 4 weeks then use 2-3 times per week nystatin (NYSTOP) powder Apply 1 application to affected area four times daily. (Patient not taking: Reported on 03/21/2019 ) mag hydrox/aluminum hyd/simeth (MAGLOX ORAL) Take by mouth. oxyCODONE IR (ROXICODONE) 5 mg immediate release tablet atorvastatin (LIPITOR) 40 mg tablet Take 1 tablet by mouth daily at bedtime. For cholesterol. (Patient taking differently: Take 20 mg by mouth daily at bedtime. For cholesterol. ) tiZANidine (ZANAFLEX) 4 mg tablet Take 1 tablet by mouth every 8 hours as needed (muscle spasms). (Patient not taking: Reported on 03/21/2019 ) hydrochlorothiazide (HYDRODIURIL, ESIDRIX) 25 mg tablet Take 1 tablet by mouth once daily. lisinopril (ZESTRIL, PRINIVIL) 10 mg tablet Take 1 tablet by mouth once daily. Aspirin 81 mg Tab Take 81 mg by mouth. Calcium Citrate-Vitamin D3 (CITRACAL + D) 315-250 mg-unit Tab Take as directed No current facility-administered medications for this visit. Allergies As of Date: 05/28/2022 Allergen Noted Reaction AMOXICILLIN 04/16/2005 Swelling ATARAX [HYDROXYZINE HCL] 04/16/2005 Swelling CEPHALEXIN 07/15/2012 Rash CODEINE 06/25/2007 GI Upset DICICLOMINE [OTHER] 04/16/2005 Swelling FLEXERIL [CYCLOBENZAPRINE HCL] 04/16/2005 Swelling ORUVAIL [KETOPROFEN] 04/16/2005 Swelling PREDNISONE 09/11/2014 Rash SUDAFED [PSEUDOEPHEDRINE] 08/24/2009 Intolerance SULFABENZAMIDE 04/16/2005 Anaphylaxis TRAMADOL 12/31/2014 Intolerance VOLTAREN [DICLOFENAC] 04/16/2005 Swelling Fully Assessed 04/07/2022 REVIEW OF SYSTEMS Abdomen: no pain Bladder: no dysuria.. Expanded ROS: no fever Allergies and current medication updated:Yes EXAM: BP 120/64 Wt 173 lb (78.5kg) GENERAL: pleasant, female in no apparent distress HEENT: Normocephalic and atraumatic PELVIC: Pessary removed without difficulty. The pessary was cleaned and coated with lubricating jelly. Speculum exam was performed without difficulty. There were no ulcerations or masses appreciated. Normal physiologic discharge was appreciated. Cervix appeared normal. Pessary was then replaced without difficulty. Patient tolerated procedure well. NEURO: alert and oriented x3,exam grossly non-focal EXTREMITIES: normal ASSESSMENT AND PLAN: Encounter Diagnosis ICD-10-CM 1. Female genital prolapse, unspecified type N81.9 2. Pessary maintenance Z46.89 3. Rto 6 weeks or PRN I spent a total of 20 minutes on the date of the service which included preparing to see the patient, [id number] patient care, completing clinical documentation, obtaining and/or reviewing separately obtained history, and performing a medically appropriate examination counseling/educating patient. Medical Decision Making: Medical Decision Making Level: 1 - N/A Zulema Lemus MD documented in this encounter [facility] 04-07-2022 Note HNO ID: [id number] Author: Zulema Willams MD Service: ? Author Type: Physician Type: Progress Notes Filed: 04/07/2022 8:52 AM Note Text: Information Technology Specialist offered: Patient declines. Ba Senior is a 87 year old female who presents for pessary maintenance. Patient reports is doing well. Denies any vaginal bleeding or abnormal discharge. She states she does have some external itching but otherwise no concerns. She had a great trip to [place] to see her family. 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, unspecified OSTEOPENIA Hypertension Osteoarthrosis, unspecified whether generalized or localized, other specified sites Other and unspecified coagulation defects Post Knee replacement Other and unspecified hyperlipidemia 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 Unspecified urinary incontinence Incontinence, stress/CYSTOCELE, RECTOCELE Urge incontinence mild PAST SURGICAL HISTORY Procedure Laterality Date APPENDECTOMY ARTHROSCOPY KNEE DIAGNOSTIC W/WO SYNOVIAL BX SPX 01-12-04 Arthroscopy, knee ARTHRP KNE CONDYLEANDPLATU MEDIALANDLAT COMPARTMENTS 11-19-04 Knee replacement, total left BACK SURGERY HX 09/2016 BIOPSY BREAST OPEN INCISIONAL 2004 Bx of breast, incisional LIG/TRNSXJ FLP TUBE ABDL/VAG APPR UNI/BI Tubal ligation PAST SURGICAL HISTORY OF 03-03-2011 left-sided frontal craniotomy for excision of meningioma FAMILY HISTORY Problem Relation Age of Onset Hypertension Mother Heart Mother Cancer Mother lung Cancer Father LUNG Heart Father Heart Brother STROKE Heart Sister Diabetes Sister Diabetes Paternal Aunt Cancer Sister CERVIX Social History Tobacco Use Smoking status: Never Smokeless tobacco: Never Substance Use Topics Alcohol use: No Drug use: No Current Outpatient Medications Medication Sig gabapentin (NEURONTIN) 100 mg capsule TAKE 1 CAPSULE BY MOUTH EVERY DAY in the evening clotrimazole-betamethasone (LOTRISONE) cream Apply 1 application to affected area twice daily. leucovorin (LEUCOVORIN) 15 mg tablet Take 15 mg by mouth one time a week. methotrexate 2.5 mg tablet START BY TAKING 4 TABLETS ONCE A WEEK FOR 1-2 WEEKS THEN INCREASE TAKING 5 TABLETS ONCE A WEEK folic acid 1 mg tablet Take 2 mg by mouth once daily. clotrimazole-betamethasone (LOTRISONE) cream Apply 1 application to affected area twice daily. fluconazole (DIFLUCAN) 150 mg tablet Take one tablet today and one tablet in 3 days metroNIDAZOLE (METROGEL VAGINAL) 0.75 % Vaginal Gel Twice weekly vaginally x 6 months after initial course of flagyl miSOPROStol (CYTOTEC) 200 mcg tablet Take two tablets PO night before procedure and two tablets morning of procedure (Patient not taking: Reported on 03/21/2019 ) phenazopyridine (PYRIDIUM, GERIDIUM) 200 mg tablet estradiol (ESTRACE) 0.01 % (0.1 mg/gram) vaginal cream Apply fingertip amount nightly x 4 weeks then use 2-3 times per week nystatin (NYSTOP) powder Apply 1 application to affected area four times daily. (Patient not taking: Reported on 03/21/2019 ) mag hydrox/aluminum hyd/simeth (MAGLOX ORAL) Take by mouth. oxyCODONE IR (ROXICODONE) 5 mg immediate release tablet atorvastatin (LIPITOR) 40 mg tablet Take 1 tablet by mouth daily at bedtime. For cholesterol. (Patient taking differently: Take 20 mg by mouth daily at bedtime. For cholesterol. ) tiZANidine (ZANAFLEX) 4 mg tablet Take 1 tablet by mouth every 8 hours as needed (muscle spasms). (Patient not taking: Reported on 03/21/2019 ) hydrochlorothiazide (HYDRODIURIL, ESIDRIX) 25 mg tablet Take 1 tablet by mouth once daily. lisinopril (ZESTRIL, PRINIVIL) 10 mg tablet Take 1 tablet by mouth once daily. Aspirin 81 mg Tab Take 81 mg by mouth. Calcium Citrate-Vitamin D3 (CITRACAL + D) 315-250 mg-unit Tab Take as directed No current facility-administered medications for this visit. Allergies As of Date: 04/07/2022 Allergen Noted Reaction AMOXICILLIN 04/16/2005 Swelling ATARAX [HYDROXYZINE HCL] 04/16/2005 Swelling CEPHALEXIN 07/15/2012 Rash CODEINE 06/25/2007 GI Upset DICICLOMINE [OTHER] 04/16/2005 Swelling FLEXERIL [CYCLOBENZAPRINE HCL] 04/16/2005 Swelling ORUVAIL [KETOPROFEN] 04/16/2005 Swelling PREDNISONE 09/11/2014 Rash SUDAFED [PSEUDOEPHEDRINE] 08/24/2009 Intolerance SULFABENZAMIDE 04/16/2005 Anaphylaxis TRAMADOL 12/31/2014 Intolerance VOLTAREN [DICLOFENAC] 04/16/2005 Swelling Fully Assessed 02/24/2022 REVIEW OF SYSTEMS Abdomen: no pain Bladder: no dysuria. Allergies and current medication updated:Yes EXAM: BP 112/62 Wt 174 lb (78.9kg) GENE (more content not included)... [facility] 02-24-2022 Note HNO ID: [id number] Author: Zulema Willams MD Service: ? Author Type: Physician Type: Progress Notes Filed: 02/24/2022 12:21 PM Note Text: Information Technology Specialist offered: Patient declines. Ora A Halfhill is a 87 year old female who presents for pessary maintenance. Patient reports is doing well. No vaginal bleeding, no abnormal discharge. Patient does states she has some irritation on the outside of the vagina but the cream that was given last time is helping. Heading to [place] to see her family. 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, unspecified OSTEOPENIA Hypertension Osteoarthrosis, unspecified whether generalized or localized, other specified sites Other and unspecified coagulation defects Post Knee replacement Other and unspecified hyperlipidemia 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 Unspecified urinary incontinence Incontinence, stress/CYSTOCELE, RECTOCELE Urge incontinence mild PAST SURGICAL HISTORY Procedure Laterality Date APPENDECTOMY ARTHROSCOPY KNEE DIAGNOSTIC W/WO SYNOVIAL BX SPX 01-12-04 Arthroscopy, knee ARTHRP KNE CONDYLEANDPLATU MEDIALANDLAT COMPARTMENTS 11-19-04 Knee replacement, total left BACK SURGERY HX 09/2016 BIOPSY BREAST OPEN INCISIONAL 2004 Bx of breast, incisional LIG/TRNSXJ FLP TUBE ABDL/VAG APPR UNI/BI Tubal ligation PAST SURGICAL HISTORY OF 03-03-2011 left-sided frontal craniotomy for excision of meningioma FAMILY HISTORY Problem Relation Age of Onset Hypertension Mother Heart Mother Cancer Mother lung Cancer Father LUNG Heart Father Heart Brother STROKE Heart Sister Diabetes Sister Diabetes Paternal Aunt Cancer Sister CERVIX Social History Tobacco Use Smoking status: Never Smokeless tobacco: Never Substance Use Topics Alcohol use: No Drug use: No Current Outpatient Medications Medication Sig clotrimazole-betamethasone (LOTRISONE) cream Apply 1 application to affected area twice daily. leucovorin (LEUCOVORIN) 15 mg tablet Take 15 mg by mouth one time a week. methotrexate 2.5 mg tablet START BY TAKING 4 TABLETS ONCE A WEEK FOR 1-2 WEEKS THEN INCREASE TAKING 5 TABLETS ONCE A WEEK folic acid 1 mg tablet Take 2 mg by mouth once daily. clotrimazole-betamethasone (LOTRISONE) cream Apply 1 application to affected area twice daily. fluconazole (DIFLUCAN) 150 mg tablet Take one tablet today and one tablet in 3 days metroNIDAZOLE (METROGEL VAGINAL) 0.75 % Vaginal Gel Twice weekly vaginally x 6 months after initial course of flagyl miSOPROStol (CYTOTEC) 200 mcg tablet Take two tablets PO night before procedure and two tablets morning of procedure (Patient not taking: Reported on 03/21/2019 ) phenazopyridine (PYRIDIUM, GERIDIUM) 200 mg tablet estradiol (ESTRACE) 0.01 % (0.1 mg/gram) vaginal cream Apply fingertip amount nightly x 4 weeks then use 2-3 times per week nystatin (NYSTOP) powder Apply 1 application to affected area four times daily. (Patient not taking: Reported on 03/21/2019 ) mag hydrox/aluminum hyd/simeth (MAGLOX ORAL) Take by mouth. oxyCODONE IR (ROXICODONE) 5 mg immediate release tablet atorvastatin (LIPITOR) 40 mg tablet Take 1 tablet by mouth daily at bedtime. For cholesterol. (Patient taking differently: Take 20 mg by mouth daily at bedtime. For cholesterol. ) tiZANidine (ZANAFLEX) 4 mg tablet Take 1 tablet by mouth every 8 hours as needed (muscle spasms). (Patient not taking: Reported on 03/21/2019 ) hydrochlorothiazide (HYDRODIURIL, ESIDRIX) 25 mg tablet Take 1 tablet by mouth once daily. lisinopril (ZESTRIL, PRINIVIL) 10 mg tablet Take 1 tablet by mouth once daily. Aspirin 81 mg Tab Take 81 mg by mouth. Calcium Citrate-Vitamin D3 (CITRACAL + D) 315-250 mg-unit Tab Take as directed No current facility-administered medications for this visit. Allergies As of Date: 02/24/2022 Allergen Noted Reaction AMOXICILLIN 04/16/2005 Swelling ATARAX [HYDROXYZINE HCL] 04/16/2005 Swelling CEPHALEXIN 07/15/2012 Rash CODEINE 06/25/2007 GI Upset DICICLOMINE [OTHER] 04/16/2005 Swelling FLEXERIL [CYCLOBENZAPRINE HCL] 04/16/2005 Swelling ORUVAIL [KETOPROFEN] 04/16/2005 Swelling PREDNISONE 09/11/2014 Rash SUDAFED [PSEUDOEPHEDRINE] 08/24/2009 Intolerance SULFABENZAMIDE 04/16/2005 Anaphylaxis TRAMADOL 12/31/2014 Intolerance VOLTAREN [DICLOFENAC] 04/16/2005 Swelling Fully Assessed 12/25/2021 REVIEW OF SYSTEMS Abdomen: no pain Bladder: no dysuria . Expanded ROS: GENERAL: Negative for fever Allergies and current medication updated:Yes EXAM: BP 100/62 Wt 173 lb (78.5kg) GENERAL: pleasant, C (more content not included)... [facility] 02-24-2022 History of Presen t illness Narrative Information Technology Specialist offered: Patient declines. Ba Senior is a 87 year old female who presents for pessary maintenance. Patient reports is doing well. No vaginal bleeding, no abnormal discharge. Patient does states she has some irritation on the outside of the vagina but the cream that was given last time is helping. Heading to [place] to see her family. 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, unspecified OSTEOPENIA Hypertension Osteoarthrosis, unspecified whether generalized or localized, other specified sites Other and unspecified coagulation defects Post Knee replacement Other and unspecified hyperlipidemia 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 Unspecified urinary incontinence Incontinence, stress/CYSTOCELE, RECTOCELE Urge incontinence mild PAST SURGICAL HISTORY Procedure Laterality Date APPENDECTOMY ARTHROSCOPY KNEE DIAGNOSTIC W/WO SYNOVIAL BX SPX 01-12-04 Arthroscopy, knee ARTHRP KNE CONDYLE&PLATU MEDIAL&LAT COMPARTMENTS 11-19-04 Knee replacement, total left BACK SURGERY HX 09/2016 BIOPSY BREAST OPEN INCISIONAL 2004 Bx of breast, incisional LIG/TRNSXJ FLP TUBE ABDL/VAG APPR UNI/BI Tubal ligation PAST SURGICAL HISTORY OF 03-03-2011 left-sided frontal craniotomy for excision of meningioma FAMILY HISTORY Problem Relation Age of Onset Hypertension Mother Heart Mother Cancer Mother lung Cancer Father LUNG Heart Father Heart Brother STROKE Heart Sister Diabetes Sister Diabetes Paternal Aunt Cancer Sister CERVIX Social History Tobacco Use Smoking status: Never Smokeless tobacco: Never Substance Use Topics Alcohol use: No Drug use: No Current Outpatient Medications Medication Sig clotrimazole-betamethasone (LOTRISONE) cream Apply 1 application to affected area twice daily. leucovorin (LEUCOVORIN) 15 mg tablet Take 15 mg by mouth one time a week. methotrexate 2.5 mg tablet START BY TAKING 4 TABLETS ONCE A WEEK FOR 1-2 WEEKS THEN INCREASE TAKING 5 TABLETS ONCE A WEEK folic acid 1 mg tablet Take 2 mg by mouth once daily. clotrimazole-betamethasone (LOTRISONE) cream Apply 1 application to affected area twice daily. fluconazole (DIFLUCAN) 150 mg tablet Take one tablet today and one tablet in 3 days metroNIDAZOLE (METROGEL VAGINAL) 0.75 % Vaginal Gel Twice weekly vaginally x 6 months after initial course of flagyl miSOPROStol (CYTOTEC) 200 mcg tablet Take two tablets PO night before procedure and two tablets morning of procedure (Patient not taking: Reported on 03/21/2019 ) phenazopyridine (PYRIDIUM, GERIDIUM) 200 mg tablet estradiol (ESTRACE) 0.01 % (0.1 mg/gram) vaginal cream Apply fingertip amount nightly x 4 weeks then use 2-3 times per week nystatin (NYSTOP) powder Apply 1 application to affected area four times daily. (Patient not taking: Reported on 03/21/2019 ) mag hydrox/aluminum hyd/simeth (MAGLOX ORAL) Take by mouth. oxyCODONE IR (ROXICODONE) 5 mg immediate release tablet atorvastatin (LIPITOR) 40 mg tablet Take 1 tablet by mouth daily at bedtime. For cholesterol. (Patient taking differently: Take 20 mg by mouth daily at bedtime. For cholesterol. ) tiZANidine (ZANAFLEX) 4 mg tablet Take 1 tablet by mouth every 8 hours as needed (muscle spasms). (Patient not taking: Reported on 03/21/2019 ) hydrochlorothiazide (HYDRODIURIL, ESIDRIX) 25 mg tablet Take 1 tablet by mouth once daily. lisinopril (ZESTRIL, PRINIVIL) 10 mg tablet Take 1 tablet by mouth once daily. Aspirin 81 mg Tab Take 81 mg by mouth. Calcium Citrate-Vitamin D3 (CITRACAL + D) 315-250 mg-unit Tab Take as directed No current facility-administered medications for this visit. Allergies As of Date: 02/24/2022 Allergen Noted Reaction AMOXICILLIN 04/16/2005 Swelling ATARAX [HYDROXYZINE HCL] 04/16/2005 Swelling CEPHALEXIN 07/15/2012 Rash CODEINE 06/25/2007 GI Upset DICICLOMINE [OTHER] 04/16/2005 Swelling FLEXERIL [CYCLOBENZAPRINE HCL] 04/16/2005 Swelling ORUVAIL [KETOPROFEN] 04/16/2005 Swelling PREDNISONE 09/11/2014 Rash SUDAFED [PSEUDOEPHEDRINE] 08/24/2009 Intolerance SULFABENZAMIDE 04/16/2005 Anaphylaxis TRAMADOL 12/31/2014 Intolerance VOLTAREN [DICLOFENAC] 04/16/2005 Swelling Fully Assessed 12/25/2021 REVIEW OF SYSTEMS Abdomen: no pain Bladder: no dysuria . Expanded ROS: GENERAL: Negative for fever Allergies and current medication updated:Yes EXAM: BP 100/62 Wt 173 lb (78.5kg) GENERAL: pleasant, female in no apparent distress HEENT: Normocephalic and atraumatic NECK: full range of motion PELVIC: Minimal vulvar erythema but no ulcerations or lesions appreciated. Pessary was removed without difficulty. Pessary was cleaned and coated with lubricating jelly. Speculum exam performed no ulcerations, no masses or lesions. Normal discharge. Pessary was placed out difficulty. Patient tolerated well. NEURO: alert and oriented x3,exam grossly non-focal EXTREMITIES: normal ASSESSMENT AND PLAN: Encounter Diagnosis ICD-10-CM 1. Pessary maintenance Z46.89 2. Female genital prolapse, unspecified type N81.9 3.vulvar hygiene reviewed. Continue to use lotrisone PRN. 4. RTO 6 weeks or PRN. I spent a total of 20 minutes on the date of the service which included preparing to see the patient, [id number] patient care, completing clinical documentation, obtaining and/or reviewing separately obtained history, performing a medically appropriate examination, and counseling and educating the patient/family/caregiver Medical Decision Making: Medical Decision Making Level: 1 - N/A Zulema Lemus MD documented in this encounter [facility] 01-10-2022 Miscellaneous Notes January 10, 2022 PID: [id number] Ba Senior [address] [place] [address] Dear Ms. Senior, We are pleased to inform you that the results of your recent breast imaging exam on 01/10/2022 are normal. Early detection of cancer is very important. We also understand recommendations regarding breast cancer screening are controversial. Please discuss with your primary care provider which strategy is best for you and whether a mammogram is right for you. Your imaging studies and report will be kept on file at [facility] as part of your permanent medical record and are available for your continuing care. Thank you for allowing us to help in meeting your health care needs. Sincerely, Dr. Anthony Interpreting Radiologist [facility] (Normal over 40) documented in this encounter [facility] 01-10-2022 History of Presen t illness Narrative Radiology Service Progress Note PATIENT NAME: Ba Senior DATE OF SERVICE: January 10, 2022 TIME: 12:32 PM PATIENT IDENTITY VERIFICATION COMPLETED USING TWO (2) IDENTIFIERS: Name and Date of confirmed by patient verbally. FALL SCREENING: Has the patient had 2 falls in the last year or 1 fall with injury or currently using an Ambulatory Assistive Device (Walker, Cane, Wheelchair, Crutches, etc.)? No PATIENT GENDER DATA: Female. status: : No status: NO. PATIENT RELEVANT IMPLANT DATA REVIEWED: Not Applicable RADIOLOGY DEPARTMENT: Mammography PERIPHERAL IV DATA: Not applicable SIGNED BY: RT Ashly(R) January 10, 2022 12:32 PM documented in this encounter [facility] 12-25-2021 History of Presen t illness Narrative Information Technology Specialist offered: Patient declines. Ba Senior is a 86 year old female who presents for pessary maintenance. Patient reports ports no concerns. She denies any foul odors, itching burning or discharge. She states she did notice blood-tinged discharge this morning. Patient reports is using [employer] on her groin for irritation. Patient offers no other concerns today. 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, unspecified OSTEOPENIA Hypertension Osteoarthrosis, unspecified whether generalized or localized, other specified sites Other and unspecified coagulation defects Post Knee replacement Other and unspecified hyperlipidemia 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 Unspecified urinary incontinence Incontinence, stress/CYSTOCELE, RECTOCELE Urge incontinence mild PAST SURGICAL HISTORY Procedure Laterality Date APPENDECTOMY ARTHROSCOPY KNEE DIAGNOSTIC W/WO SYNOVIAL BX SPX 01-12-04 Arthroscopy, knee ARTHRP KNE CONDYLE&PLATU MEDIAL&LAT COMPARTMENTS 11-19-04 Knee replacement, total left BACK SURGERY HX 09/2016 BIOPSY BREAST OPEN INCISIONAL 2004 Bx of breast, incisional LIG/TRNSXJ FLP TUBE ABDL/VAG APPR UNI/BI Tubal ligation PAST SURGICAL HISTORY OF 03-03-2011 left-sided frontal craniotomy for excision of meningioma FAMILY HISTORY Problem Relation Age of Onset Hypertension Mother Heart Mother Cancer Mother lung Cancer Father LUNG Heart Father Heart Brother STROKE Heart Sister Diabetes Sister Diabetes Paternal Aunt Cancer Sister CERVIX Social History Tobacco Use Smoking status: Never Smokeless tobacco: Never Substance Use Topics Alcohol use: No Drug use: No Current Outpatient Medications Medication Sig leucovorin (LEUCOVORIN) 15 mg tablet Take 15 mg by mouth one time a week. methotrexate 2.5 mg tablet START BY TAKING 4 TABLETS ONCE A WEEK FOR 1-2 WEEKS THEN INCREASE TAKING 5 TABLETS ONCE A WEEK folic acid 1 mg tablet Take 2 mg by mouth once daily. clotrimazole-betamethasone (LOTRISONE) cream Apply 1 application to affected area twice daily. fluconazole (DIFLUCAN) 150 mg tablet Take one tablet today and one tablet in 3 days metroNIDAZOLE (METROGEL VAGINAL) 0.75 % Vaginal Gel Twice weekly vaginally x 6 months after initial course of flagyl miSOPROStol (CYTOTEC) 200 mcg tablet Take two tablets PO night before procedure and two tablets morning of procedure (Patient not taking: Reported on 03/21/2019 ) phenazopyridine (PYRIDIUM, GERIDIUM) 200 mg tablet estradiol (ESTRACE) 0.01 % (0.1 mg/gram) vaginal cream Apply fingertip amount nightly x 4 weeks then use 2-3 times per week nystatin (NYSTOP) powder Apply 1 application to affected area four times daily. (Patient not taking: Reported on 03/21/2019 ) mag hydrox/aluminum hyd/simeth (MAGLOX ORAL) Take by mouth. oxyCODONE IR (ROXICODONE) 5 mg immediate release tablet atorvastatin (LIPITOR) 40 mg tablet Take 1 tablet by mouth daily at bedtime. For cholesterol. (Patient taking differently: Take 20 mg by mouth daily at bedtime. For cholesterol. ) tiZANidine (ZANAFLEX) 4 mg tablet Take 1 tablet by mouth every 8 hours as needed (muscle spasms). (Patient not taking: Reported on 03/21/2019 ) hydrochlorothiazide (HYDRODIURIL, ESIDRIX) 25 mg tablet Take 1 tablet by mouth once daily. lisinopril (ZESTRIL, PRINIVIL) 10 mg tablet Take 1 tablet by mouth once daily. Aspirin 81 mg Tab Take 81 mg by mouth. Calcium Citrate-Vitamin D3 (CITRACAL + D) 315-250 mg-unit Tab Take as directed No current facility-administered medications for this visit. Allergies As of Date: 12/25/2021 Allergen Noted Reaction AMOXICILLIN 04/16/2005 Swelling ATARAX [HYDROXYZINE HCL] 04/16/2005 Swelling CEPHALEXIN 07/15/2012 Rash CODEINE 06/25/2007 GI Upset DICICLOMINE [OTHER] 04/16/2005 Swelling FLEXERIL [CYCLOBENZAPRINE HCL] 04/16/2005 Swelling ORUVAIL [KETOPROFEN] 04/16/2005 Swelling PREDNISONE 09/11/2014 Rash SUDAFED [PSEUDOEPHEDRINE] 08/24/2009 Intolerance SULFABENZAMIDE 04/16/2005 Anaphylaxis TRAMADOL 12/31/2014 Intolerance VOLTAREN [DICLOFENAC] 04/16/2005 Swelling Fully Assessed 11/13/2021 REVIEW OF SYSTEMS Abdomen: no pain Bladder: no dysuria .. Expanded ROS: GENERAL: Negative for fever Allergies and current medication updated:Yes EXAM: BP 118/64 Wt 172 lb (78.0kg) GENERAL: pleasant, female in no apparent distress HEENT: Normocephalic and atraumatic NECK: full range of motion PELVIC: Pessary removed without difficulty. There is some light bloody discharge noted. Pessary was cleaned and coated with lubrication gel. This time speculum exam revealed no ulcerations but there was some vaginal irritation on the left side but was had some pinpoint oozing. At this time decision was made to replace pessary. Patient tolerated well. Patient also has significant yeast dermatitis in bilateral groin extending to under the pannus. NEURO: alert and oriented x3,exam grossly non-focal EXTREMITIES: normal ASSESSMENT AND PLAN: Encounter Diagnosis ICD-10-CM 1. Female genital prolapse, unspecified type N81.9 2. Pessary maintenance Z46.89 3. Vaginal irritation from pessary (HCC) T83.89XA N89.8 4. Yeast dermatitis B37.2 5. Lotrisone and Diflcuan ordered. Medical Decision Making: Problems: Low: Acute, uncomplicated illness or injury Risk: Moderate: Drug management Medical Decision Making Level: 3 - Low Zulema Lemus MD documented in this encounter [facility] 11-13-2021 History of Presen t illness Narrative Ba Senior is a 86 year old female who presents for pessary maintenance. Patient is doing well. Patient denies any vaginal bleeding, odors, itching or burning. She reports no dysuria. Patient offers no other concerns today. 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, unspecified OSTEOPENIA Hypertension Osteoarthrosis, unspecified whether generalized or localized, other specified sites Other and unspecified coagulation defects Post Knee replacement Other and unspecified hyperlipidemia 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 Unspecified urinary incontinence Incontinence, stress/CYSTOCELE, RECTOCELE Urge incontinence mild PAST SURGICAL HISTORY Procedure Laterality Date APPENDECTOMY ARTHROSCOPY KNEE DIAGNOSTIC W/WO SYNOVIAL BX SPX 01-12-04 Arthroscopy, knee ARTHRP KNE CONDYLE&PLATU MEDIAL&LAT COMPARTMENTS 11-19-04 Knee replacement, total left BACK SURGERY HX 09/2016 BIOPSY BREAST OPEN INCISIONAL 2004 Bx of breast, incisional LIG/TRNSXJ FLP TUBE ABDL/VAG APPR UNI/BI Tubal ligation PAST SURGICAL HISTORY OF 03-03-2011 left-sided frontal craniotomy for excision of meningioma FAMILY HISTORY Problem Relation Age of Onset Hypertension Mother Heart Mother Cancer Mother lung Cancer Father LUNG Heart Father Heart Brother STROKE Heart Sister Diabetes Sister Diabetes Paternal Aunt Cancer Sister CERVIX Social History Tobacco Use Smoking status: Never Smoker Smokeless tobacco: Never Used Substance Use Topics Alcohol use: No Drug use: No Current Outpatient Medications Medication Sig leucovorin (LEUCOVORIN) 15 mg tablet Take 15 mg by mouth one time a week. methotrexate 2.5 mg tablet START BY TAKING 4 TABLETS ONCE A WEEK FOR 1-2 WEEKS THEN INCREASE TAKING 5 TABLETS ONCE A WEEK folic acid 1 mg tablet Take 2 mg by mouth once daily. clotrimazole-betamethasone (LOTRISONE) cream Apply 1 application to affected area twice daily. fluconazole (DIFLUCAN) 150 mg tablet Take one tablet today and one tablet in 3 days metroNIDAZOLE (METROGEL VAGINAL) 0.75 % Vaginal Gel Twice weekly vaginally x 6 months after initial course of flagyl miSOPROStol (CYTOTEC) 200 mcg tablet Take two tablets PO night before procedure and two tablets morning of procedure (Patient not taking: Reported on 03/21/2019 ) phenazopyridine (PYRIDIUM, GERIDIUM) 200 mg tablet estradiol (ESTRACE) 0.01 % (0.1 mg/gram) vaginal cream Apply fingertip amount nightly x 4 weeks then use 2-3 times per week nystatin (NYSTOP) powder Apply 1 application to affected area four times daily. (Patient not taking: Reported on 03/21/2019 ) mag hydrox/aluminum hyd/simeth (MAGLOX ORAL) Take by mouth. oxyCODONE IR (ROXICODONE) 5 mg immediate release tablet atorvastatin (LIPITOR) 40 mg tablet Take 1 tablet by mouth daily at bedtime. For cholesterol. (Patient taking differently: Take 20 mg by mouth daily at bedtime. For cholesterol. ) tiZANidine (ZANAFLEX) 4 mg tablet Take 1 tablet by mouth every 8 hours as needed (muscle spasms). (Patient not taking: Reported on 03/21/2019 ) hydrochlorothiazide (HYDRODIURIL, ESIDRIX) 25 mg tablet Take 1 tablet by mouth once daily. lisinopril (ZESTRIL, PRINIVIL) 10 mg tablet Take 1 tablet by mouth once daily. Aspirin 81 mg Tab Take 81 mg by mouth. Calcium Citrate-Vitamin D3 (CITRACAL + D) 315-250 mg-unit Tab Take as directed No current facility-administered medications for this visit. Allergies As of Date: 11/13/2021 Allergen Noted Reaction AMOXICILLIN 04/16/2005 Swelling ATARAX [HYDROXYZINE HCL] 04/16/2005 Swelling CEPHALEXIN 07/15/2012 Rash CODEINE 06/25/2007 GI Upset DICICLOMINE [OTHER] 04/16/2005 Swelling FLEXERIL [CYCLOBENZAPRINE HCL] 04/16/2005 Swelling ORUVAIL [KETOPROFEN] 04/16/2005 Swelling PREDNISONE 09/11/2014 Rash SUDAFED [PSEUDOEPHEDRINE] 08/24/2009 Intolerance SULFABENZAMIDE 04/16/2005 Anaphylaxis TRAMADOL 12/31/2014 Intolerance VOLTAREN [DICLOFENAC] 04/16/2005 Swelling Fully Assessed 10/02/2021 REVIEW OF SYSTEMS Abdomen: no pain Bladder: no dysuria .. Expanded ROS: GENERAL: Negative for fever Allergies and current medication updated:Yes EXAM: BP 116/64 Wt 164 lb (74.4kg) GENERAL: pleasant, female in no apparent distress HEENT: Normocephalic, atraumatic, mucus membranes moist and no lesions NECK: full range of motion PELVIC: Pessary removed without difficulty. Pessary was cleaned and coated with lubricating gel. Speculum exam performed revealed no cervical masses no ulcerations. Normal discharge. No active bleeding. Pessary was replaced without difficulty. Patient tolerated procedure well. NEURO: alert and oriented x3,exam grossly non-focal ASSESSMENT AND PLAN: Encounter Diagnosis ICD-10-CM 1. Pessary maintenance Z46.89 2. Female genital prolapse, unspecified type N81.9 3. RTO 6 weeks or PRN I spent a total of 20 minutes on the date of the service which included preparing to see the patient, [id number] patient care, completing clinical documentation, obtaining and/or reviewing separately obtained history, performing a medically appropriate examination and counseling and educating the patient/family/caregiver Zulema Lemus MD documented in this encounter [facility] 10-02-2021 History of Presen t illness Narrative Ba Senior is a 86 year old female who presents for pessary maintenance. Patient reports is doing well. Denies any vaginal bleeding, foul odors. She reports occasional itching on the external vagina but no other concerns. No pain with urination. She does have urgency which is normal for her. 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, unspecified OSTEOPENIA Hypertension Osteoarthrosis, unspecified whether generalized or localized, other specified sites Other and unspecified coagulation defects Post Knee replacement Other and unspecified hyperlipidemia 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 Unspecified urinary incontinence Incontinence, stress/CYSTOCELE, RECTOCELE Urge incontinence mild PAST SURGICAL HISTORY Procedure Laterality Date APPENDECTOMY ARTHROSCOPY KNEE DIAGNOSTIC W/WO SYNOVIAL BX SPX 01-12-04 Arthroscopy, knee ARTHRP KNE CONDYLE&PLATU MEDIAL&LAT COMPARTMENTS 11-19-04 Knee replacement, total left BACK SURGERY HX 09/2016 BIOPSY BREAST OPEN INCISIONAL 2004 Bx of breast, incisional LIG/TRNSXJ FLP TUBE ABDL/VAG APPR UNI/BI Tubal ligation PAST SURGICAL HISTORY OF 03-03-2011 left-sided frontal craniotomy for excision of meningioma FAMILY HISTORY Problem Relation Age of Onset Hypertension Mother Heart Mother Cancer Mother lung Cancer Father LUNG Heart Father Heart Brother STROKE Heart Sister Diabetes Sister Diabetes Paternal Aunt Cancer Sister CERVIX Social History Tobacco Use Smoking status: Never Smoker Smokeless tobacco: Never Used Substance Use Topics Alcohol use: No Drug use: No Current Outpatient Medications Medication Sig leucovorin (LEUCOVORIN) 15 mg tablet Take 15 mg by mouth one time a week. methotrexate 2.5 mg tablet START BY TAKING 4 TABLETS ONCE A WEEK FOR 1-2 WEEKS THEN INCREASE TAKING 5 TABLETS ONCE A WEEK folic acid 1 mg tablet Take 2 mg by mouth once daily. clotrimazole-betamethasone (LOTRISONE) cream Apply 1 application to affected area twice daily. fluconazole (DIFLUCAN) 150 mg tablet Take one tablet today and one tablet in 3 days metroNIDAZOLE (METROGEL VAGINAL) 0.75 % Vaginal Gel Twice weekly vaginally x 6 months after initial course of flagyl miSOPROStol (CYTOTEC) 200 mcg tablet Take two tablets PO night before procedure and two tablets morning of procedure (Patient not taking: Reported on 03/21/2019 ) phenazopyridine (PYRIDIUM, GERIDIUM) 200 mg tablet estradiol (ESTRACE) 0.01 % (0.1 mg/gram) vaginal cream Apply fingertip amount nightly x 4 weeks then use 2-3 times per week nystatin (NYSTOP) powder Apply 1 application to affected area four times daily. (Patient not taking: Reported on 03/21/2019 ) mag hydrox/aluminum hyd/simeth (MAGLOX ORAL) Take by mouth. oxyCODONE IR (ROXICODONE) 5 mg immediate release tablet atorvastatin (LIPITOR) 40 mg tablet Take 1 tablet by mouth daily at bedtime. For cholesterol. (Patient taking differently: Take 20 mg by mouth daily at bedtime. For cholesterol. ) tiZANidine (ZANAFLEX) 4 mg tablet Take 1 tablet by mouth every 8 hours as needed (muscle spasms). (Patient not taking: Reported on 03/21/2019 ) hydrochlorothiazide (HYDRODIURIL, ESIDRIX) 25 mg tablet Take 1 tablet by mouth once daily. lisinopril (ZESTRIL, PRINIVIL) 10 mg tablet Take 1 tablet by mouth once daily. Aspirin 81 mg Tab Take 81 mg by mouth. Calcium Citrate-Vitamin D3 (CITRACAL + D) 315-250 mg-unit Tab Take as directed No current facility-administered medications for this visit. Allergies As of Date: 10/02/2021 Allergen Noted Reaction AMOXICILLIN 04/16/2005 Swelling ATARAX [HYDROXYZINE HCL] 04/16/2005 Swelling CEPHALEXIN 07/15/2012 Rash CODEINE 06/25/2007 GI Upset DICICLOMINE [OTHER] 04/16/2005 Swelling FLEXERIL [CYCLOBENZAPRINE HCL] 04/16/2005 Swelling ORUVAIL [KETOPROFEN] 04/16/2005 Swelling PREDNISONE 09/11/2014 Rash SUDAFED [PSEUDOEPHEDRINE] 08/24/2009 Intolerance SULFABENZAMIDE 04/16/2005 Anaphylaxis TRAMADOL 12/31/2014 Intolerance VOLTAREN [DICLOFENAC] 04/16/2005 Swelling Fully Assessed 08/21/2021 REVIEW OF SYSTEMS Abdomen: no pain Bladder: no dysuria .. Expanded ROS: GENERAL: Negative for fever Allergies and current medication updated:Yes EXAM: BP 108/60 Wt 168 lb (76.2kg) GENERAL: pleasant, female in no apparent distress HEENT: Normocephalic and atraumatic NECK: full range of motion DERMATOLOGY: Normal, without lesions, non-icteric and non-hirsute PELVIC: Pessary removed without difficulty. Scant amount of discharge on the pessary. Pessary was cleaned and coated with Trimo-Ordonez. Speculum exam revealed no ulcerations. Mild irritation on the vaginal sidewall but no ulcerations noted. Pessary was then replaced without difficulty. Patient tolerated well. NEURO: alert and oriented x3,exam grossly non-focal EXTREMITIES: normal ASSESSMENT AND PLAN: Encounter Diagnosis ICD-10-CM 1. Pessary maintenance Z46.89 2. Female genital prolapse, unspecified type N81.9 3. RTO 6 weeks or PRN I spent a total of 20 minutes on the date of the service which included preparing to see the patient, [id number] patient care, completing clinical documentation, obtaining and/or reviewing separately obtained history, performing a medically appropriate examination and counseling and educating the patient/family/caregiver Zulema Lemus MD documented in this encounter [facility] 08-21-2021 History of Presen t illness Narrative Ba Senior is a 86 year old female who presents for pessary maintenance. Patient reports is doing well. Denies any vaginal discharge, odors, vaginal bleeding. She reports occasional external irritation and itching. No difficulty with urination. 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, unspecified OSTEOPENIA Hypertension Osteoarthrosis, unspecified whether generalized or localized, other specified sites Other and unspecified coagulation defects Post Knee replacement Other and unspecified hyperlipidemia 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 Unspecified urinary incontinence Incontinence, stress/CYSTOCELE, RECTOCELE Urge incontinence mild PAST SURGICAL HISTORY Procedure Laterality Date APPENDECTOMY ARTHROSCOPY KNEE DIAGNOSTIC W/WO SYNOVIAL BX SPX 01-12-04 Arthroscopy, knee ARTHRP KNE CONDYLE&PLATU MEDIAL&LAT COMPARTMENTS 11-19-04 Knee replacement, total left BACK SURGERY HX 09/2016 BIOPSY BREAST OPEN INCISIONAL 2004 Bx of breast, incisional LIG/TRNSXJ FLP TUBE ABDL/VAG APPR UNI/BI Tubal ligation PAST SURGICAL HISTORY OF 03-03-2011 left-sided frontal craniotomy for excision of meningioma FAMILY HISTORY Problem Relation Age of Onset Hypertension Mother Heart Mother Cancer Mother lung Cancer Father LUNG Heart Father Heart Brother STROKE Heart Sister Diabetes Sister Diabetes Paternal Aunt Cancer Sister CERVIX Social History Tobacco Use Smoking status: Never Smoker Smokeless tobacco: Never Used Substance Use Topics Alcohol use: No Drug use: No Current Outpatient Medications Medication Sig leucovorin (LEUCOVORIN) 15 mg tablet Take 15 mg by mouth one time a week. methotrexate 2.5 mg tablet START BY TAKING 4 TABLETS ONCE A WEEK FOR 1-2 WEEKS THEN INCREASE TAKING 5 TABLETS ONCE A WEEK folic acid 1 mg tablet Take 2 mg by mouth once daily. clotrimazole-betamethasone (LOTRISONE) cream Apply 1 application to affected area twice daily. fluconazole (DIFLUCAN) 150 mg tablet Take one tablet today and one tablet in 3 days metroNIDAZOLE (METROGEL VAGINAL) 0.75 % Vaginal Gel Twice weekly vaginally x 6 months after initial course of flagyl miSOPROStol (CYTOTEC) 200 mcg tablet Take two tablets PO night before procedure and two tablets morning of procedure (Patient not taking: Reported on 03/21/2019 ) phenazopyridine (PYRIDIUM, GERIDIUM) 200 mg tablet estradiol (ESTRACE) 0.01 % (0.1 mg/gram) vaginal cream Apply fingertip amount nightly x 4 weeks then use 2-3 times per week nystatin (NYSTOP) powder Apply 1 application to affected area four times daily. (Patient not taking: Reported on 03/21/2019 ) mag hydrox/aluminum hyd/simeth (MAGLOX ORAL) Take by mouth. oxyCODONE IR (ROXICODONE) 5 mg immediate release tablet atorvastatin (LIPITOR) 40 mg tablet Take 1 tablet by mouth daily at bedtime. For cholesterol. (Patient taking differently: Take 20 mg by mouth daily at bedtime. For cholesterol. ) tiZANidine (ZANAFLEX) 4 mg tablet Take 1 tablet by mouth every 8 hours as needed (muscle spasms). (Patient not taking: Reported on 03/21/2019 ) hydrochlorothiazide (HYDRODIURIL, ESIDRIX) 25 mg tablet Take 1 tablet by mouth once daily. lisinopril (ZESTRIL, PRINIVIL) 10 mg tablet Take 1 tablet by mouth once daily. Aspirin 81 mg Tab Take 81 mg by mouth. Calcium Citrate-Vitamin D3 (CITRACAL + D) 315-250 mg-unit Tab Take as directed No current facility-administered medications for this visit. Allergies As of Date: 08/21/2021 Allergen Noted Reaction AMOXICILLIN 04/16/2005 Swelling ATARAX [HYDROXYZINE HCL] 04/16/2005 Swelling CEPHALEXIN 07/15/2012 Rash CODEINE 06/25/2007 GI Upset DICICLOMINE [OTHER] 04/16/2005 Swelling FLEXERIL [CYCLOBENZAPRINE HCL] 04/16/2005 Swelling ORUVAIL [KETOPROFEN] 04/16/2005 Swelling PREDNISONE 09/11/2014 Rash SUDAFED [PSEUDOEPHEDRINE] 08/24/2009 Intolerance SULFABENZAMIDE 04/16/2005 Anaphylaxis TRAMADOL 12/31/2014 Intolerance VOLTAREN [DICLOFENAC] 04/16/2005 Swelling Fully Assessed 07/09/2021 REVIEW OF SYSTEMS Abdomen: no pain Bladder: no dysuria .. Expanded ROS: GENERAL: Fatigue Allergies and current medication updated:Yes EXAM: BP 120/62 Wt 164 lb (74.4kg) GENERAL: pleasant, female in no apparent distress HEENT: Normocephalic and atraumatic NECK: full range of motion DERMATOLOGY: Normal, without lesions, non-icteric and non-hirsute PELVIC: Pessary removed without difficulty. No vaginal or cervical ulcerations are present. Mild erythema noted. No active bleeding. The pessary was cleaned and coated with Trimo-Ordonez. It was replaced that difficulty. Patient tolerated well. NEURO: alert and oriented x3,exam grossly non-focal EXTREMITIES: normal ASSESSMENT AND PLAN: Encounter Diagnosis ICD-10-CM 1. Pessary maintenance Z46.89 2. Female genital prolapse, unspecified type N81.9 3. RTO 6 wks for pessary maintenance I spent a total of 20 minutes on the date of the service which included preparing to see the patient, [id number] patient care, completing clinical documentation, obtaining and/or reviewing separately obtained history, performing a medically appropriate examination and counseling and educating the patient/family/caregiver Zulema Lemus MD documented in this encounter [facility] 08-25-2016 Fall risk assessm ent [facility] Work Phone: [email or web address] No 03-27-2009 History of Past i llness Narrative Problem Noted Date Resolved Date Solitary cyst of breast 03/27/2009 09/23/19 12 Symptomatic menopausal or female climacteric sta brayan 12/19/2008 09/23/2011 Urgency of urination 12/19/2008 09/23/2011 Nocturia 12/19/2008 09/23/2011 Screening for malignant neoplasm of the cervix 0 12/19/2008 09/23/2011 Breast screening, unspecified 12/19/2008 Routine general medical exam ination at a health care facility 11/28/2008 09/23/2011 Overview: 11/28/2008, from Reid Gary (retired) Routine gynecological examination 11/28/2008 09/23/2011 Overview: Dr. Maxwell Qureshi, [facility] Pain in joint, lower leg 05/02/2005 008 Hypertension 09/23/2011 Preop exam for internal medicine 09/23/2011 documented as of this encounter (statuses as of 08/21/2021) [facility] History of Past illness Narrative* Problem Noted Date Resolved Date Solitary cyst of breast 03/27/2009 09/23/19 12 Symptomatic menopausal or female climacteric sta brayan 12/19/2008 09/23/2011 Urgency of urination 12/19/2008 09/23/2011 Nocturia 12/19/2008 09/23/2011 Screening for malignant neoplasm of the cervix 0 12/19/2008 09/23/2011 Breast screening, unspecified 12/19/2008 Routine general medical exam ination at a health care facility 11/28/2008 09/23/2011 Overview: 11/28/2008, from Reid Gary (retired) Routine gynecological examination 11/28/2008 09/23/2011 Overview: Dr. Maxwell Qureshi, [facility] Pain in joint, lower leg 05/02/2005 008 Hypertension 09/23/2011 Preop exam for internal medicine 09/23/2011 documented as of this encounter (statuses as of 10/02/2021) [facility] History of Past illness Narrative* Problem Noted Date Resolved Date Solitary cyst of breast 03/27/2009 09/23/19 12 Symptomatic menopausal or female climacteric sta brayan 12/19/2008 09/23/2011 Urgency of urination 12/19/2008 09/23/2011 Nocturia 12/19/2008 09/23/2011 Screening for malignant neoplasm of the cervix 0 12/19/2008 09/23/2011 Breast screening, unspecified 12/19/2008 Routine general medical exam ination at a health care facility 11/28/2008 09/23/2011 Overview: 11/28/2008, from Reid Gary (retired) Routine gynecological examination 11/28/2008 09/23/2011 Overview: Dr. Maxwell Qureshi, [facility] Pain in joint, lower leg 05/02/2005 008 Hypertension 09/23/2011 Preop exam for internal medicine 09/23/2011 documented as of this encounter (statuses as of 11/13/2021) [facility] History of Past illness Narrative* Problem Noted Date Resolved Date Solitary cyst of breast 03/27/2009 09/23/19 12 Symptomatic menopausal or female climacteric sta brayan 12/19/2008 09/23/2011 Urgency of urination 12/19/2008 09/23/2011 Nocturia 12/19/2008 09/23/2011 Screening for malignant neoplasm of the cervix 0 12/19/2008 09/23/2011 Breast screening, unspecified 12/19/2008 Routine general medical exam ination at a health care facility 11/28/2008 09/23/2011 Overview: 11/28/2008, from Reid Gary (retired) Routine gynecological examination 11/28/2008 09/23/2011 Overview: Dr. Maxwell Qureshi, [facility], [facility] Pain in joint, lower leg 05/02/2005 008 Hypertension 09/23/2011 Preop exam for internal medicine 09/23/2011 documented as of this encounter (statuses as of 12/25/2021) [facility] History of Past illness Narrative* Problem Noted Date Resolved Date Solitary cyst of breast 03/27/2009 09/23/19 12 Symptomatic menopausal or female climacteric sta brayan 12/19/2008 09/23/2011 Urgency of urination 12/19/2008 09/23/2011 Nocturia 12/19/2008 09/23/2011 Screening for malignant neoplasm of the cervix 0 12/19/2008 09/23/2011 Breast screening, unspecified 12/19/2008 Routine general medical exam ination at a health care facility 11/28/2008 09/23/2011 Overview: 11/28/2008, from Reid Gary (retired) Routine gynecological examination 11/28/2008 09/23/2011 Overview: Dr. Maxwell Qureshi, [facility] Pain in joint, lower leg 05/02/2005 008 Hypertension 09/23/2011 Preop exam for internal medicine 09/23/2011 documented as of this encounter (statuses as of 01/12/2022) [facility] History of Past illness Narrative* Problem Noted Date Resolved Date Solitary cyst of breast 03/27/2009 09/23/19 12 Symptomatic menopausal or female climacteric sta brayan 12/19/2008 09/23/2011 Urgency of urination 12/19/2008 09/23/2011 Nocturia 12/19/2008 09/23/2011 Screening for malignant neoplasm of the cervix 0 12/19/2008 09/23/2011 Breast screening, unspecified 12/19/2008 Routine general medical exam ination at a health care facility 11/28/2008 09/23/2011 Overview: 11/28/2008, from Reid Gary (retired) Routine gynecological examination 11/28/2008 09/23/2011 Overview: Dr. Maxwell Qureshi, [facility] Pain in joint, lower leg 05/02/2005 008 Hypertension 09/23/2011 Preop exam for internal medicine 09/23/2011 documented as of this encounter (statuses as of 01/14/2022) [facility] History of Past illness Narrative* Problem Noted Date Resolved Date Solitary cyst of breast 03/27/2009 09/23/19 12 Symptomatic menopausal or female climacteric sta brayan 12/19/2008 09/23/2011 Urgency of urination 12/19/2008 09/23/2011 Nocturia 12/19/2008 09/23/2011 Screening for malignant neoplasm of the cervix 0 12/19/2008 09/23/2011 Breast screening, unspecified 12/19/2008 Routine general medical exam ination at a health care facility 11/28/2008 09/23/2011 Overview: 11/28/2008, from Reid Gary (retired) Routine gynecological examination 11/28/2008 09/23/2011 Overview: Dr. Maxwell Qureshi, [facility] Pain in joint, lower leg 05/02/2005 008 Hypertension 09/23/2011 Preop exam for internal medicine 09/23/2011 documented as of this encounter (statuses as of 02/24/2022) [facility] History of Past illness Narrative* Problem Noted Date Resolved Date Solitary cyst of breast 03/27/2009 09/23/19 12 Symptomatic menopausal or female climacteric sta brayan 12/19/2008 09/23/2011 Urgency of urination 12/19/2008 09/23/2011 Nocturia 12/19/2008 09/23/2011 Screening for malignant neoplasm of the cervix 0 12/19/2008 09/23/2011 Breast screening, unspecified 12/19/2008 Routine general medical exam ination at a health care facility 11/28/2008 09/23/2011 Overview: 11/28/2008, from Reid Gary (retired) Routine gynecological examination 11/28/2008 09/23/2011 Overview: Dr. Maxwell Qureshi, [facility] Pain in joint, lower leg 05/02/2005 008 Hypertension 09/23/2011 Preop exam for internal medicine 09/23/2011 documented as of this encounter (statuses as of 05/28/2022) [facility] History of Past illness Narrative* Problem Noted Date Resolved Date Solitary cyst of breast 03/27/2009 09/23/19 12 Symptomatic menopausal or female climacteric sta brayan 12/19/2008 09/23/2011 Urgency of urination 12/19/2008 09/23/2011 Nocturia 12/19/2008 09/23/2011 Screening for malignant neoplasm of the cervix 0 12/19/2008 09/23/2011 Breast screening, unspecified 12/19/2008 Routine general medical exam ination at a health care facility 11/28/2008 09/23/2011 Overview: 11/28/2008, from Reid Gary (retired) Routine gynecological examination 11/28/2008 09/23/2011 Overview: Dr. Maxwell Qureshi, [facility] Pain in joint, lower leg 05/02/2005 008 Hypertension 09/23/2011 Preop exam for internal medicine 09/23/2011 documented as of this encounter (statuses as of 07/09/2022) [facility] History of Past illness Narrative* Problem Noted Date Resolved Date Solitary cyst of breast 03/27/2009 09/23/19 12 Symptomatic menopausal or female climacteric sta brayan 12/19/2008 09/23/2011 Urgency of urination 12/19/2008 09/23/2011 Nocturia 12/19/2008 09/23/2011 Screening for malignant neoplasm of the cervix 0 12/19/2008 09/23/2011 Breast screening, unspecified 12/19/2008 Routine general medical exam ination at a health care facility 11/28/2008 09/23/2011 Overview: 11/28/2008, from Reid Gary (retired) Routine gynecological examination 11/28/2008 09/23/2011 Overview: Dr. Maxwell Qureshi, [facility] Pain in joint, lower leg 05/02/2005 008 Hypertension 09/23/2011 Preop exam for internal medicine 09/23/2011 documented as of this encounter (statuses as of 07/21/2022) [facility] History of Past illness Narrative* Problem Noted Date Diagnosed Date Resolved Date Solitary cyst of breast 03/27/200908/26 Symptomatic menopausal or fe male climacteric states 12/19/2008 09/23/2011 Urgency of urination 12/19/2008 012 Nocturia 12/19/2008 09/23/2011 Screening for malignant neop lasm of the cervix 12/19/2008 09/23/2011 Breast screening, unspecified 12/19/2008 09/23/2011 Routine general medical exam ination at a health care facility 11/28/2008 09/23/2011 Overview: 11/28/2008, from Reid Gary (retired) Routine gynecological examination 11/28/2008 09/23/2011 Overview: Dr. Maxwell Qureshi, [facility] Pain in joint, lower leg 05/02/2005 Hypertension 09/23/2011 Preop exam for internal medicine 09/23/2011 documented as of this encounter (statuses as of 01/31/2023) [facility] [place] [facility] Diagnosis Pessary maintenance- Primary Fitting and adjustment of other device Female genital prolapse, unspecified type [facility] [place] [facility] Diagnosis Female genital prolapse, unspecified type- Primary Pessary maintenance Fitting and adjustment of other device Vaginal irritation from pessary ([facility]) Unspecified noninflammatory disorder of vagina Yeast dermatitis Candidiasis of skin and nails [facility] [place] [facility] Diagnosis Pessary maintenance- Primary Fitting and adjustment of other device Female genital prolapse, unspecified type [facility] [place] [facility] Diagnosis Female genital prolapse, unspecified type- Primary Pessary maintenance Fitting and adjustment of other device [facility] [place] [facility] Diagnosis Vaginal inflammation from pessary, initial encounter ([facility])- Primary Female genital prolapse, unspecified type Pessary maintenance Fitting and adjustment of other device documented [facility] [place] [facility] Diagnosis Female genital prolapse, unspecified type- Primary documented in this encounter [facility] Summary Purpose Family History No Family History Records Found Advance Directives No Advanced Directives Records Found Additional Source Comments Source Comments (unrecognize d section and content) In the event this informatio n is protected by the Federal Confidentiality of Alcohol and Drug Abuse Patient Records regulations: The Federal rules restrict any use of the information to criminally investigate or prosecute any alcohol or drug abuse patient.[facility] event this information is protected by the Federal Confidentiality of Alcohol and Drug Abuse Patient Records regulations: The Federal rules restrict any use of the information to criminally investigate or prosecute any alcohol or drug abuse patient.[facility] event this information is protected by the Federal Confidentiality of Alcohol and Drug Abuse Patient Records regulations: The Federal rules restrict any use of the information to criminally investigate or prosecute any alcohol or drug abuse patient.[facility] event this information is protected by the Federal Confidentiality of Alcohol and Drug Abuse Patient Records regulations: The Federal rules restrict any use of the information to criminally investigate or prosecute any alcohol or drug abuse patient.[facility] event this information is protected by the Federal Confidentiality of Alcohol and Drug Abuse Patient Records regulations: The Federal rules restrict any use of the information to criminally investigate or prosecute any alcohol or drug abuse patient.[facility] event this information is protected by the Federal Confidentiality of Alcohol and Drug Abuse Patient Records regulations: The Federal rules restrict any use of the information to criminally investigate or prosecute any alcohol or drug abuse patient.[facility] the event this information is protected by the Federal Confidentiality of Alcohol and Drug Abuse Patient Records regulations: The Federal rules restrict any use of the information to criminally investigate or prosecute any alcohol or drug abuse patient.[facility] the event this information is protected by the Federal Confidentiality of Alcohol and Drug Abuse Patient Records regulations: The Federal rules restrict any use of the information to criminally investigate or prosecute any alcohol or drug abuse patient.[facility] the event this information is protected by the Federal Confidentiality of Alcohol and Drug Abuse Patient Records regulations: The Federal rules restrict any use of the information to criminally investigate or prosecute any alcohol or drug abuse patient.[facility] the event this information is protected by the Federal Confidentiality of Alcohol and Drug Abuse Patient Records regulations: The Federal rules restrict any use of the information to criminally investigate or prosecute any alcohol or drug abuse patient.[facility] the event this information is protected by the Federal Confidentiality of Alcohol and Drug Abuse Patient Records regulations: The Federal rules restrict any use of the information to criminally investigate or prosecute any alcohol or drug abuse patient.[facility] Reason for Visit (unrecogniz ed section and content) Reason Comments Pessary Reason Comments Follow Up Pessary insertion Care Teams (unrecognized sec tion and content) Accounting Manager Relationship Specialty Start Date End Date Olga Hurst PCP - General Family Practice 07/09/16 Accounting Manager Relationship Specialty Start Date End Date Olga Hurst PCP - General Family Practice 07/09/16 Accounting Manager Relationship Specialty Start Date End Date Olga Hurst PCP - General Family Practice 07/09/16 Accounting Manager Relationship Specialty Start Date End Date Olga Hurst PCP - General Family Practice 07/09/16 Accounting Manager Relationship Specialty Start Date End Date Olga Hurst PCP - General Family Medicine 07/09/16 Accounting Manager Relationship Specialty Start Date End Date Olga Hurst PCP - General Family Medicine 07/09/16 Accounting Manager Relationship Specialty Start Date End Date Olga Hurst PCP - General Family Medicine 07/09/16 Accounting Manager Relationship Specialty Start Date End Date Olga Hurst PCP - General Family Medicine 07/09/16 INFORMATION SOURCE (unrecogn ized section and content) DATE CREATED AUTHOR 02/04/2023 [facility] FOR RECORDS PERTAINING TO PATIENTS WHO ARE OR HAVE BEEN ENROLLED IN A CHEMICAL DEPENDENCY/SUBSTANCEABUSE PROGRAM, SOME INFORMATION MAY BE OMITTED. This clinical summary was aggregated from multiple sources. Caution should be exercised in using it in the provision of clinical care. This summary normalizes information from multiple sources, and as a consequence, information in this document may materially change the coding, format and clinical context of patient data. In addition, data may be omitted in some cases. CLINICAL DECISIONS SHOULD BE BASED ON THE PRIMARY CLINICAL RECORDS. [employer] provides no warranty or guarantee of the accuracy or completeness of information in this document.
--- NOTE | 2024-02-17 07:40 | PCM.PRE.AN2 ---
ASA Classification* ASA Classification ASA Classification: 2 Assessment & Plan Anesthesia* Anesthesia Assessment Anesthesia Assessment: Discussed sedation and/or anesthesia options, risks, benefits, and alternatives with patient/parents/legal guardian/POA. Questions invited. The patient/parents/legal guardian/POA seems to understand and agrees to proceed with anesthesia plan. Reviewed the physical assessment, medical history, allergy history and patient home medications list prior to surgery/procedure/anesthetic and documented any changes. Performed airway and anesthesia risk assessments. Anesthesia Type Anesthesia Type: MAC Anesthesia Focused Assessment* Temperature: 97.3 F Pulse Rate: 63 Blood Pressure: 147/57 Respiratory Rate: 18 Pulse Ox: 98 Airway Assessment Mouth opens: >3 cm Mallampati Score: II Focused Labs Anesthesia Preop lab: CBC WBC 5.6 K/mm3 (4.4-11.0) 12/22/23 09:30 RBC 4.31 M/mm3 (4.2-5.4) 12/22/23 09:30 Hgb 13.0 g/dL (12.0-15.0) 12/22/23 09:30 Hct 40.2 % (37-47) 12/22/23 09:30 Plt Count 142 K/mm3 (150-450) L 12/22/23 09:30 CHEMISTRY Potassium 4.1 mmol/L (3.5-5.1) 12/22/23 09:30 Sodium 140 mmol/L (136-145) 12/22/23 09:30 BUN 27 mg/dL (7-18) H 12/22/23 09:30 Creatinine 0.76 mg/dL (0.55-1.02) 12/22/23 09:30 Glucose 94 mg/dL (74-106) 12/22/23 09:30 TSH 1.31 uIU/mL (0.358-3.74) 02/17/22 10:32 COAG Pre-Assessment Diagnosis/Proposed Procedure Planned Operative Procedure(s): (R) Right Endoscopic Carpal Tunnel Release Anesthesia History 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 When Was Last Pacemaker Check QUESTION #4 FULL TEXT: You/Your Family Experience fever (hyperthermia) with Anesthesia Last Oral Intake Last Oral intake: Last Oral Intake NPO since 22:00 02/17/24 07:15 Meds taken in AM with sips of Yes 02/17/24 07:15 water? 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 Female Yes 02/11/24 10:46 HX of Motion Sickness No 02/11/24 10:46 HX of N/V After Surgery Yes 02/11/24 10:46 Non-Smoker Yes 02/11/24 10:46 Duration of Surgery greater No 02/11/24 10:46 than 60 minutes Number of Risk Factors 3 02/11/24 10:46 PONV Score Moderate Risk 02/11/24 10:46 Height & Weight Height & Weight: Anesthesia: Height & Weight Height 5 ft 2 in 02/17/24 07:15 Weight: 76 kg 02/17/24 07:15 Body Mass Index (BMI) 30.6 02/17/24 07:15 Respiratory Assessment Respiratory Assessment - chemical process equipment operator: Respiratory Tract Infection Hx - chemical process equipment operator Hx Respiratory Tract Infection No 02/11/24 10:46 STOP Sleep Apnea STOP Sleep Apnea - chemical process equipment operator: STOP Sleep Apnea - chemical process equipment operator Hx Hypertension Yes: CONTROLLED WITH MED 02/11/24 10:46 Hx Sleep Apnea No 02/11/24 10:46 CPAP BIPAP Do you snore loudly (louder No 02/11/24 10:46 than talking or can be heard Do you often feel tired/ No 02/11/24 10:46 fatigued/ sleepy during daytime? Has anyone observed you stop No 02/11/24 10:46 breathing during sleep? STOP Results Negative 02/11/24 10:46 QUESTION #5 FULL TEXT : Do you snore loudly (louder than talking or can be heard through closed doors)? 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 Specify any problems Hx of Preganancy in last 3 N/A 02/11/24 10:46 Months Nurse Filling Out Transfusion NBUCHER 02/11/24 10:46 & Questions: Date: 02/11/24 02/11/24 10:46 Time: 10:47 02/11/24 10:46 Patient unable to answer at this time (ie. confused, unrespo /Reproduction History /Reproductive History - chemical process equipment operator: /Reproductive Hx- chemical process equipment operator Hx Now No 02/11/24 10:46 Gestational Age (in weeks): EDC: Hx Hx Para Hx Section SAB No 02/11/24 10:46 Active Medications Active Medications: Current Medications Generic Name Dose Route Start Last Admin Trade Name Freq PRN Reason Stop Dose Admin Cefazolin Sodium 2 gm/ N/A 20 mls @ 400 mls/hr 02/17/24 08:40 IV 02/17/24 08:42 PREOP ONE PFSH Medical History Wears glasses Wears hearing aid Wears dentures Post-menopausal Ambulates with cane Walker as ambulation aid Low iron High cholesterol Restless legs Heartburn Non-smoker Leg cramps History of echocardiogram Cardiology follow-up encounter COVID-19 Rheumatoid arthritis Pure hypercholesterolemia Essential hypertension Incontinence Back pain Limb weakness Shoulder pain Hemorrhoids Arthritis Syncope Brain tumor Chest pressure Home Medications ?Medication ?Instructions ?Recorded ?Last Taken ?Type calcium 315 mg (as 1 tab PO BID 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 09/16/22 Unknown History citrate)-vitamin D3 6.25 mcg (250 unit) tablet albuterol sulfate 90 mcg/actuation 2 puff inhalation Q4H PRN PRN 04/07/24 Unknown Rx aerosol inhaler (Ventolin HFA) Wheezing 30 days #6.7 grams lisinopril 10 mg tablet 10 mg PO BID blood pressure #180 10/05/23 02/17/24 Rx tabs acetaminophen 650 mg 650 mg PO Q8H 10/27/23 02/17/24 History tablet,extended release (Tylenol Arthritis Pain) atorvastatin 20 mg tablet 20 mg PO DAILY 10/27/23 Unknown History ferrous sulfate 325 mg (65 mg 325 mg PO QDAY 10/27/23 Unknown History iron) tablet (FeroSul) gabapentin 100 mg capsule 100 mg PO BID #60 caps 12/22/23 Unknown Rx Allergy/AdvReac Type Severity Reaction Status Date / Time amoxicillin (Amoxicillin) Allergy Severe Swelling Verified 02/17/24 07:15 cyclobenzaprine HCl (From Allergy Severe Swelling Verified 02/17/24 07:15 Flexeril) diclofenac sodium (From Allergy Severe Swelling Verified 02/17/24 07:15 Voltaren) dicyclomine Allergy Severe Swelling Verified 02/17/24 07:15 ketoprofen (From Oruvail) Allergy Severe Swelling Verified 02/17/24 07:15 sulfabenzamide Allergy Severe Anaphylaxis Verified 02/17/24 07:15 tramadol Allergy Unknown Unknown Verified 02/17/24 07:15 hydroxychloroquine (From Allergy Hives Verified 02/11/24 10:42 Plaquenil) hydroxyzine HCl (From Atarax) Allergy Swelling Verified 02/17/24 07:15 prednisone Allergy Hives Verified 02/17/24 07:15 pseudoephedrine HCl (From Allergy Other Verified 02/17/24 07:15 Sudafed) cephalexin AdvReac Severe Rash Verified 02/17/24 07:15 clindamycin AdvReac Severe Hives Verified 02/17/24 07:15 codeine AdvReac Severe Upset Verified 02/17/24 07:15 Stomach Family History Mother Heart disease Father Heart disease Other Cancer Surgical History History of back surgery History of breast biopsy History of appendectomy History of knee replacement procedure of left knee History of brain surgery Social History Smoking Status: Never smoker second hand exposure: No alcohol intake: never substance use type: does not use what type of physical activity do you participate in: none wolf/islam: Druze seatbelt use: always Review of Systems (Anesthesia) ROS Narrative System reviewed and no additional complaints, except as documented.
--- NOTE | 2024-02-17 08:09 | PCM.HP.STD ---
HPI - General HPI Narrative BA GUADARRAMA, is a 89 F who presents for right endoscopic carpal tunnel release. no changes to h and p. Ok to proceed. right wrist marked. rab and post op instructions discussed. typically no narcotics after surgery. no further questions or concerns. will proceed. MR#: [id number] Acct: [id number] Name: BA GUADARRAMA Rep #: [id number] : 1935 Provider: Dr. Pavel Cartagena MD Age/Sex: 88/F Location: [facility] Status: Signed Intake Vital Signs 12/22/2407:27 Height 5 ft 2 in Weight: 166 lb 10 oz BMI 30.4 BP 120/60 Blood Pressure Location Rt brachial Position Sitting Respiration 17 Pulse 67 Pulse Source Monitor Temp 98.2 F Temp Source Temporal Pulse Oximetry (%) 98 Oxygen Delivery Method room air Intake Visit Reasons: RIGHT HAND Chief Complaint: carpal tunnel Allergies amoxicillin (Amoxicillin) Allergy (Severe, Verified 01/18/24 13:19) Swellingcyclobenzaprine HCl (From Flexeril) Allergy (Severe, Verified 01/18/24 13:19) Swellingdiclofenac sodium (From Voltaren) Allergy (Severe, Verified 01/18/24 13:19) Swellingdicyclomine Allergy (Severe, Verified 01/18/24 13:19) Swellingketoprofen (From Oruvail) Allergy (Severe, Verified 01/18/24 13:19) Swellingsulfabenzamide Allergy (Severe, Verified 01/18/24 13:19) Anaphylaxistramadol Allergy (Unknown, Verified 01/18/24 13:19) Unknownhydroxychloroquine (From Plaquenil) Allergy (Verified 01/18/24 13:21) Hiveshydroxyzine HCl (From Atarax) Allergy (Verified 01/18/24 13:19) Swellingprednisone Allergy (Verified 01/18/24 13:19) Hivespseudoephedrine HCl (From Sudafed) Allergy (Verified 01/18/24 13:19) Othercephalexin Adverse Reaction (Severe, Verified 01/18/24 13:19) Rashclindamycin Adverse Reaction (Severe, Verified 01/18/24 13:19) Hivescodeine Adverse Reaction (Severe, Verified 01/18/24 13:19) Upset Stomach Medications ?Medication ?Instructions ?Recorded ?Confirmed ?Type methotrexate sodium 2.5 mg tablet 25 mg PO QWEEK 07/12/21 01/18/24 History calcium citrate 315 mg 2 tab PO BID 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 09/16/22 01/18/24 History calcium-vitamin D3 6.25 mcg (250 unit) tablet folic acid 1 mg tablet 2 mg PO DAILY 09/16/22 01/18/24 History leucovorin calcium 15 mg tablet 15 mg PO QWEEK 09/16/22 01/18/24 History loratadine 10 mg tablet 10 mg PO DAILY PRN nasal/sinus 02/04/23 01/18/24 Rx congestion/drainage #10 tabs albuterol sulfate 90 mcg/actuation 2 puff inhalation Q4H PRN PRN 08/02/23 01/18/24 Rx aerosol inhaler (Ventolin HFA) Wheezing 30 days #6.7 grams lisinopril 10 mg tablet 10 mg PO BID blood pressure #180 10/05/23 01/18/24 Rx tabs acetaminophen 650 mg 650 mg PO Q8H 10/27/23 01/18/24 History tablet,extended release (Tylenol Arthritis Pain) atorvastatin 20 mg tablet 20 mg PO DAILY 10/27/23 01/18/24 History famotidine 20 mg tablet 20 mg PO DAILY PRN 10/27/23 01/18/24 History (Zantac-360 (famotidine)) ferrous sulfate 325 mg (65 mg 325 mg PO QDAY 10/27/23 01/18/24 History iron) tablet (FeroSul) gabapentin 100 mg capsule 100 mg PO BID #60 caps 12/22/23 01/18/24 Rx Have you fallen in the past year?: Yes (September) [facility] Medical History COVID-19 Rheumatoid arthritis Pure hypercholesterolemia Essential hypertension Incontinence Back pain Limb weakness Shoulder pain Hemorrhoids Arthritis Syncope Brain tumor Chest pressure Surgical History History of back surgery History of breast biopsy History of appendectomy History of knee replacement procedure of left knee History of brain surgery Family History Mother Heart diseaseFather Heart diseaseOther Cancer Social History Smoking Status: Never smoker second hand exposure: No alcohol intake: never substance use type: does not use what type of physical activity do you participate in: none wolf/orthodox: Anabaptist seatbelt use: always HPI RIGHT HAND Details: This documentation accurately reflects the service provided and the decisions made by me, Dr. Pavel Cartagena MD 01/18/24 1304. Part of today?s visit was documented by [ ], acting as scribe. BA GUADARRAMA is a 88 year old F here today for right carpal tunnel syndrome. whole hand, mostly the thumb index and middle. for a year. getting worse. RHD. positive flick sign. wears a band for a year. wakes up with symptoms. no cigs, no blood thinner, no diabetes. no symptoms from elbow. Supplemental Info [facility]Neurology [address] [place] [address] MR#: [id number] Acct: [id number] Name: BA GUADARRAMA Rep #: [id number] : 1935 88 From: Kimani Flowers MD Referring Dr: Jb Joiner MD Status: [facility] Location: [facility] Date: 08/26/23 Sex: F C ADDENDUM by Dr. Kimani Flowers MD on 12/30/23 at 1336 Addendum Line 2 in Impression should state that there is no electrodiagnostic evidence for cubital tunnel syndrome. 12/30/23 1336 Date Kimani Flowers MD cc: Dr. Olga Hurst MD; Dr. Kimani Flowers MD; Dr. Jb Joiner MD ~* Signed NCS and/or EMG Patient Report Ordering Doctor: Jb Joiner DATE OF SERVICE: 08/26/23 Ba presents for electrodiagnostic testing of the right upper limb. She reports numbness and tingling in the right hand. Electrodiagnostic findings: Right median motor nerve demonstrates prolonged distal latency with normal amplitude and reduced conduction velocity. Right ulnar motor nerve demonstrates normal distal latency and amplitude with a nearly 20% drop in conduction across the elbow. Prolonged right median F?wave is noted. Absent right median sensory latency at the wrist. Normal ulnar and radial sensory responses. Needle EMG testing was performed the right upper limb. All muscles tested showed no evidence of denervation with normal motor unit action potentials. Electrodiagnostic impression: This an abnormal study in the right upper limb 1. Electrodiagnostic findings suggestive of right-sided median mononeuropathy. This is consistent with a severe right carpal tunnel syndrome 2. No electrodiagnostic evidence suggestive for right ulnar neuropathy. This is consistent with a mild right cubital tunnel syndrome. 3. There is no electrodiagnostic evidence for cervical radiculopathy. Multi Select Codes Neurology Neurology Interp Codes: 95033-84 Musc test done w/n test comp (interp) and 15502-88 Nrv cndj tst 5-6 studies (interp) Coding Level of Care Code Off vis,new,level 3 Diagnoses Carpal tunnel syndrome, right G56.01 Assessment and Plan Assessment and Plan (1) Carpal tunnel syndrome, right: Status: Acute Plan: BA GUADARRAMA is a 88 year old F here today for right carpal tunnel syndrome. I explained to the patient on the diagnosis prognosis different treatment options available. This can certainly get worse or more permanent with time. In my experience given the patient's age and severity of the compression this has a more unreliable treatment effect from surgery. Options include but not limited to doing nothing rest ice anti-inflammatories active modifications bracing nerve gliding physical therapy cortisone injections as well as open or endoscopic carpal tunnel release. Endoscopic may have higher rates of incomplete release but early return to function possibly less pain. The patient is interested in surgery. Booked and consented today for right endoscopic carpal tunnel release. The patient understands no further questions or concerns. Pros and cons risks and benefits were discussed with the patient including but not limited to infection, pain, stiffness, bleeding, damage to surrounding structures, neurovascular injury, recurrence or retear, failure or wear of hardware or fixation, instability, fracture, deep vein thrombosis and pulmonary embolism, anesthetic risks, , patient dissatisfaction, need for further surgery and other risks. Patient understood and wished to proceed with surgery, and signed the informed consent documentation. Clinical Quality Measures Falls Risk Screening/Assistive Devices Have you fallen in the past year?: Yes (September) Ortho Exam General General: Yes no acute distress Neurologic: Yes alert and Yes oriented x3 Psychologic: Yes reasonable and appropriate Right Wrist/Hand Skin/Wound: Yes CDI, No Swelling, No Ecchymosis, Yes nail intact and Yes capillary refill normal A1 faby trigger: No Right Wrist: Yes ROM-Extension 0-60, ROM-Flexion 0-80, ROM-Pronation 0-80, ROM-Supination 0-90, Durken's Test, Tinel's (pos wrist, neg elbow, neg comp at elbow), Phalen's and Thenar Atrophy; No Palpable Nodule, tender to palpate 1st dorsal compartment or Hypothenar Atrophy Motor: EPL: 5, FDP-2: 5, 1st Dorsal Interosseous: 5 and APB: 5 Sensation: Radial: I, Ulnar: I and Median: D Left Wrist/Hand Skin/Wound: No Swelling and No Ecchymosis PFSH Medical History Wears glasses Wears hearing aid Wears dentures Post-menopausal Ambulates with cane Walker as ambulation aid Low iron High cholesterol Restless legs Heartburn Non-smoker Leg cramps History of echocardiogram Cardiology follow-up encounter COVID-19 Rheumatoid arthritis Pure hypercholesterolemia Essential hypertension Incontinence Back pain Limb weakness Shoulder pain Hemorrhoids Arthritis Syncope Brain tumor Chest pressure Home Medications ?Medication ?Instructions ?Recorded ?Last Taken ?Type calcium 315 mg (as 1 tab PO BID 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 09/16/22 Unknown History citrate)-vitamin D3 6.25 mcg (250 unit) tablet albuterol sulfate 90 mcg/actuation 2 puff inhalation Q4H PRN PRN 08/02/23 Unknown Rx aerosol inhaler (Ventolin HFA) Wheezing 30 days #6.7 grams lisinopril 10 mg tablet 10 mg PO BID blood pressure #180 10/05/23 02/17/24 Rx tabs acetaminophen 650 mg 650 mg PO Q8H 10/27/23 02/17/24 History tablet,extended release (Tylenol Arthritis Pain) atorvastatin 20 mg tablet 20 mg PO DAILY 10/27/23 Unknown History ferrous sulfate 325 mg (65 mg 325 mg PO QDAY 10/27/23 Unknown History iron) tablet (FeroSul) gabapentin 100 mg capsule 100 mg PO BID #60 caps 12/22/23 Unknown Rx Allergy/AdvReac Type Severity Reaction Status Date / Time amoxicillin (Amoxicillin) Allergy Severe Swelling Verified 02/17/24 07:15 cyclobenzaprine HCl (From Allergy Severe Swelling Verified 02/17/24 07:15 Flexeril) diclofenac sodium (From Allergy Severe Swelling Verified 02/17/24 07:15 Voltaren) dicyclomine Allergy Severe Swelling Verified 02/17/24 07:15 ketoprofen (From Oruvail) Allergy Severe Swelling Verified 02/17/24 07:15 sulfabenzamide Allergy Severe Anaphylaxis Verified 02/17/24 07:15 tramadol Allergy Unknown Unknown Verified 02/17/24 07:15 hydroxychloroquine (From Allergy Hives Verified 02/11/24 10:42 Plaquenil) hydroxyzine HCl (From Atarax) Allergy Swelling Verified 02/17/24 07:15 prednisone Allergy Hives Verified 02/17/24 07:15 pseudoephedrine HCl (From Allergy Other Verified 02/17/24 07:15 Sudafed) cephalexin AdvReac Severe Rash Verified 02/17/24 07:15 clindamycin AdvReac Severe Hives Verified 02/17/24 07:15 codeine AdvReac Severe Upset Verified 02/17/24 07:15 Stomach Family History Mother Heart disease Father Heart disease Other Cancer Surgical History History of back surgery History of breast biopsy History of appendectomy History of knee replacement procedure of left knee History of brain surgery Social History Smoking Status: Never smoker second hand exposure: No alcohol intake: never substance use type: does not use what type of physical activity do you participate in: none wofl/orthodox: Anabaptist seatbelt use: always Vital Signs Vital Signs Vital Signs: 02/17/24 07:15 02/17/24 07:15 02/17/24 07:40 Temperature 97.3 F L 97.3 F L Temperature Source Temporal Pulse Rate 63 63 Respiratory Rate 18 18 Respiratory Pattern Normal Blood Pressure 147/57 H 147/57 H Blood Pressure Mean 87 Blood Pressure Source Monitor Blood Pressure Position Semi-Fowlers Blood Pressure Location Left Arm Pulse Ox 98 98 Oxygen Delivery Method Room Air Weight Weight: 167 lb 8.821 oz Body Mass Index (BMI) 30.6
[2024-02-17] MEDS: Cefazolin 2 GM in Syringe IV (08:22)
[2024-02-17] MEDS: Bupivacaine 0.25% 30 ML Vial (08:56)
--- NOTE | 2024-02-17 09:03 | PCM.OPRPT ---
Problems Associated Problem List Diagnoses (1) Carpal tunnel syndrome, right: Procedures Musculoskeletal [id number]: Other Procedure See Report Operative Report (Standard) Operative Information Surgery/Procedure Performed:: right endoscopic carpal tunnel release Surgeon: Pavel Cartagena RN Documented Start/Stop Times: Operation Date: 02/17/24 08:40 Case Time Into Pre-Op 02/17/24 07:05 Out of Pre-Op 02/17/24 08:17 Anesthesia Start 02/17/24 08:22 Into Room 02/17/24 08:22 Procedure Start 02/17/24 08:45 Procedure End 02/17/24 08:58 Date of Procedure: 02/17/24 Procedure Start Time: 08:45 Procedure Stop Time: 08:58 Pre-Operative Diagnosis: right carpal tunnel syndrome Post-Operative Diagnosis: same Select all DRAINS/GRAFTS/IMPLANTS that apply:: None Type of Anesthesia: Local MAC Estimated Blood Loss: 10 Specimen collected: No Description of surgery: Patient brought to the operating room theater. Placed upon on the table. MAC anesthesia induced by the anesthetic team. Patient placed supine on the table all bony prominences padded. SCDs on the legs. Bed turned 90 degrees. Hand table used. Tourniquet applied properly padded to the upper extremity. Upper extremity prepped and draped in the usual sterile fashion with chlorhexidine-based prep solution allowing over 3 minutes drying time prior to draping. Preoperative timeout performed to confirm the site patient and the surgery. Began by elevating the limb and inflated the tourniquet to 250 mmHg. I used the [employer] center line kirsten scope endoscopic carpal tunnel kit / technique. I made a transverse 2 cm incision in line with the? transverse wrist crease.? This was in line with the fourth digit.? I carried the dissection down through skin and subcutaneous tissue achieved meticulous hemostasis. Just ulnar to palmaris tendon.? I incised the antebrachial fascia.? I passed sequential dilators into the carpal tunnel along the radial border of the Guyon's canal aiming for the fourth digit with the hand in extension.? I used a synovial elevator to identify the transverse fibers of the transverse carpal tunnel ligament.? Passed the scope into the carpal tunnel. Once I had identified the full proximal and distal extent of the ligament I fully released the ligament under direct visualization by deploying the blade and slowly withdrawing the scope made sequential passes until I no longer felt tension as well as the entire extent of the ligament was released under direct visualization.? Sounded the tunnel with cifuentes tenotomy scissors, complete release, no bands. Arthroscope light was more visible through the skin. Pictures taken and saved. Wounds thoroughly irrigated.? 4cc 0.25% bupivicaine for local anesthesia. Tourniquet let down prior to end of the case and meticulous hemostasis achieved.? Thorough irrigation.? ? Incisions closed with 3-0 vicryl and 3-0 moncryl for the skin.?Then adaptic 4x4 gauze and laura. Patient woken up,? transferred off the operating room table and taken to postanesthetic care unit in stable condition. All sponge needle instrument counts were correct no complications.?Plan for the patient to be discharged home according to day surgery criteria when they are comfortable. Follow-up in the office in 2 days time. Gentle ROM hand and elbow no heavy lifting. cpt 38526 Surgical Findings: right carpal tunnel syndrome Esol Instructor document management consultant: No Complications Complications: No Admit VTE Documentation VTE Present on Admission: No VTE Mechan Device Prophylaxis: SCD's VTE Pharm Prophylaxis ordered?: No Reason prophylaxis not ordered:: Treatment Not Indicated
--- NOTE | 2024-02-17 09:05 | PCM.POST.ANE ---
Anesthesia: Postop Eval I Current Vital Signs Temperature: 97 F Pulse Rate: 75 Blood Pressure: 103/49 Respiratory Rate: 18 Pulse Ox: 93 Assessment Airway patent: Yes Spontaneous unlabored respirations: Yes nausea: No Vomiting: No Anesthesia Complication: No Fluid Hydration Crystalloid volume administer (ml): 10 Total IV fluid infused: 10 Progress Note Anesthesia document: Postop Eval 1 completed: Yes
--- NOTE | 2024-02-17 09:05 | EX.PCM.DISCH ---
Discharge Instructions Diet Discharge Diet: No restrictions Activity Discharge Activity: Return to Normal Activity Ice area for (Minutes): 10 Lifting Restrictions: no lifting over 1 pound, ok for gentle hand wrist elbow rom Keep extremity elevated above heart level: Operative Extremity Dressing / Incision Call your doctor if your incision/area has: Continuous Slow Oozing, Sudden Increased Bleeding, Increased Pain/ Swelling, Increased Redness, Foul Smelling Discharge and Swelling at the incision site Call your doctor if you observe: Fever of 101 or Higher, Coldness, Increased Pain and Numbness or Tingling Change Dressing in: leave in place till F/U Cleanse incision/area with: Do not get Incision Wet Follow Up Care Please Follow Up With: Pavel Cartagena MD When: 2 days Test Results: Test results from this visit will be discussed in further detail at your follow-up appointment, if applicable. Discharge Plan Admission Attending Provider: Pavel Cartagena Primary Care Provider: Olga Hurst Instructions Print Language: Yoruba Discharge Orders/Prescriptions Prescriptions: No Action atorvastatin 20 mg tablet 20 mg PO DAILY ferrous sulfate [FeroSul] 325 mg (65 mg iron) tablet 325 mg PO QDAY acetaminophen [Tylenol Arthritis Pain] 650 mg tablet extended release 650 mg PO Q8H gabapentin 100 mg capsule 100 mg PO BID Qty: 60 6RF calcium citrate-vitamin D3 315 mg-6.25 mcg (250 unit) tablet 1 tab PO BID Patient Comments: vitamin albuterol sulfate [Ventolin HFA] 90 mcg/actuation HFA aerosol inhaler 2 puff inhalation Q4H PRN PRN (Reason: Wheezing) 30 Days Qty: 6.7 0RF lisinopril 10 mg tablet 10 mg PO BID Qty: 180 3RF Referrals / Follow Up: Olga Hurst MD [Primary Care Provider] - Pavel Cartagena MD [Med Staff - Active Staff] - Disposition Disposition (needs filled in before D/C Order can be placed): Home, Self Care
[2024-02-17] MEDS: HYDROcodone Bitartrate/Apap 5/325 Tablet PO (10:35)
--- NOTE | 2024-02-17 13:45 | POSTOPAN2_ITS ---
Anesthesia Postop Eval I Sum Postop Eval Completion status Anesthesia document: Postop Eval 1 completed: Yes Anesthesia Postop Eval I Summary Anesthesia Postop Eval I Summary: Anesthesia Postop Eval I: Assessment Summary Airway patent Yes 02/17/24 09:05 AUTOMOTIVE [email or web address].CSIR Spontaneous unlabored Yes 02/17/24 09:05 AUTOMOTIVE ENGINEER.CSIR respirations Mental status nausea No 02/17/24 09:05 AUTOMOTIVE ENGINEER.CSIR Vomiting No 02/17/24 09:05 AUTOMOTIVE ENGINEER.CSIR Anesthesia Postop Eval I: Fluid Summary Crystalloid volume administer 10 02/17/24 09:05 AUTOMOTIVE ENGINEER.CSIR (ml) Colloids volume administered ( ml) Blood Product volume administered (ml) Total IV fluid infused 10 02/17/24 09:05 AUTOMOTIVE ENGINEER.CSIR Anesthesia Postop Eval I: Summary Notes Anesthesia Complication No 02/17/24 09:05 AUTOMOTIVE ENGINEER.CSIR Anesthesia Complication Comment: Post-operative progress note Anesthesia: Postop Eval II Evaluation Mental status: Awake and Calm Pain Level: 0 nausea: No Vomiting: No
--- NOTE | 2024-02-17 13:45 | PCM.POSTANE2 ---
Anesthesia Postop Eval I Sum Postop Eval Completion status Anesthesia document: Postop Eval 1 completed: Yes Anesthesia Postop Eval I Summary Anesthesia Postop Eval I Summary: Anesthesia Postop Eval I: Assessment Summary Airway patent Yes 02/17/24 09:05 CAR INSTALLATIONS SUPERVISOR.CSIR Spontaneous unlabored Yes 02/17/24 09:05 CAR INSTALLATIONS SUPERVISOR.CSIR respirations Mental status nausea No 02/17/24 09:05 CAR INSTALLATIONS SUPERVISOR.CSIR Vomiting No 02/17/24 09:05 CAR INSTALLATIONS SUPERVISOR.CSIR Anesthesia Postop Eval I: Fluid Summary Crystalloid volume administer 10 02/17/24 09:05 CAR INSTALLATIONS SUPERVISOR.CSIR (ml) Colloids volume administered ( ml) Blood Product volume administered (ml) Total IV fluid infused 10 02/17/24 09:05 CAR INSTALLATIONS SUPERVISOR.CSIR Anesthesia Postop Eval I: Summary Notes Anesthesia Complication No 02/17/24 09:05 CAR INSTALLATIONS SUPERVISOR.CSIR Anesthesia Complication Comment: Post-operative progress note Anesthesia: Postop Eval II Evaluation Mental status: Awake and Calm Pain Level: 0 nausea: No Vomiting: No
== END 2024-02-17 11:04 | disposition home or self-care (01) ==
LOC: SDC 06:59 → AC 07:00
PROVIDERS: PCP Family Medicine; Referring Provider Orthopaedic Surgery Sports Medicine; Visit Provider Orthopaedic Surgery Sports Medicine
PROC: (CPT 29848; principal; 2024-02-17 08:25)
DX: G56.01 Carpal tunnel syndrome, right upper limb (principal); M06.9 Rheumatoid arthritis, unspecified; I10 Essential (primary) hypertension; E61.1 Iron deficiency; E78.00 Pure hypercholesterolemia, unspecified; G62.9 Polyneuropathy, unspecified; G25.81 Restless legs syndrome; Z88.0 Allergy status to penicillin; Z88.1 Allergy status to other antibiotic agents; Z88.2 Allergy status to sulfonamides; Z90.49 Acquired absence of other specified parts of digestive tract; Z79.899 Other long term (current) drug therapy; Z96.652 Presence of left artificial knee joint
CPT/HCPCS: 29848; A4216; J2405

== ENCOUNTER → 2024-05-16 | Outpatient (CLI) | payer MEDICARE, SELFPAY ==
--- NOTE | 2024-05-16 10:48 | US_ITS ---
STUDY: ULTRASOUND BREAST - LEFT REASON FOR EXAM: Female, 89 years old. Left breast pain. TECHNIQUE: Axial and longitudinal images of the LEFT breast were performed with a high resolution ultrasound transducer. # OF IMAGES: 67 COMPARISON: Comparison is made with prior outside mammogram dated April 14, 2024. FINDINGS: LEFT Breast: The upper lateral aspect of the right breast was examined with ultrasound. 2 benign-appearing lymph nodes are seen in the left axilla. The larger lymph node measures 2.1 cm x 1.8 cm x 1.2 cm. There is also evidence of a 3 mm x 3 mm x 2 mm cyst at the 12:00 position of the breast at 2 cm from the nipple. There is also evidence of a 2 mm x 2 mm x 2 mm cyst at the 2:00 position breast at 5 cm from nipple. Dilated retroareolar ducts. US/Breast Limited Unilateral IMPRESSION: Small cysts are seen in the upper outer quadrant left breast as well as left axillary lymph nodes. Dilated ducts. ASSESSMENT CATEGORY: BIRADS Category 2: Benign. A letter regarding these results will be sent to the patient by the facility within 30 days. Electronically Signed: Israel Denton MD at 12:24 EST ,
== END | disposition home or self-care (01) ==
PROVIDERS: PCP Family Medicine; Referring Provider Family Medicine; Visit Provider Family Medicine
DX: R92.8 Other abnormal and inconclusive findings on diagnostic imaging of breast (principal)
CPT/HCPCS: 76642

== ENCOUNTER → 2024-06-07 | Outpatient (CLI) | payer MEDICARE, SELFPAY ==
--- NOTE | 2024-06-07 17:11 | RAD_ITS ---
PROCEDURE: THORACIC SPINE 2 VIEWS REASON FOR EXAM: Pain. Left-sided chest wall pain. TECHNIQUE: 2 view(s) of the thoracic spine. COMPARISON: 01/13/2018. FINDINGS: Thoracic vertebral bodies maintain a normal height. There is mild levoscoliosis of the mid to upper thoracic spine. Multilevel degenerative changes are present with disc space narrowing and endplate spurring greatest involving the mid to lower thoracic spine. No acute fracture or subluxation is present. Bilateral pedicles are symmetric. Large hiatal hernia is present. RAD/Thoracic Spine 2 Views IMPRESSION: 1. No acute osseous abnormality. 2. Multilevel degenerative changes. 3. Mild levoscoliosis. Reading Location: [facility]
--- NOTE | 2024-06-07 17:11 | RAD_ITS ---
PROCEDURE: RIBS UNIL 2V NO CXR REASON FOR EXAM: Left anterior chest pain. TECHNIQUE: Frontal and oblique views of the left ribs. COMPARISON: None. FINDINGS: No displaced rib fractures are identified. No suspicious lytic or blastic rib lesions. Chronic compression fracture noted of the lumbar spine status post vertebroplasty. Aortic calcifications are noted. RAD/Ribs Unil 2V No CXR IMPRESSION: NO EVIDENCE OF ACUTE RIB FRACTURE OR PNEUMOTHORAX. Reading Location: [id number]
--- NOTE | 2024-06-07 17:20 | RAD_ITS ---
PROCEDURE: CHEST PA AND LATERAL REASON FOR EXAM: Left anterior chest pain since March. TECHNIQUE: Frontal and lateral views of the chest. COMPARISON: 08/02/2023. FINDINGS: The heart size is normal. Aortic calcifications. 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 No acute consolidation, pleural effusion or pneumothorax. Large hiatal hernia. The visualized osseous structures demonstrate degenerative changes. 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 Consider further evaluation to exclude p ossible goiter or other lesion. No acute consolidation, pleural effusion or pneumothorax. Large hiatal hernia. Reading Location: [id number]
== END | disposition home or self-care (01) ==
LOC: MTRAD 17:11
PROVIDERS: PCP Family Medicine; Referring Provider Family Medicine; Visit Provider Family Medicine
DX: R07.89 Other chest pain (principal)
CPT/HCPCS: 71046; 71100; 72070

== ENCOUNTER → 2024-07-06 | Outpatient (CLI) | payer MEDICARE, SELFPAY ==
--- NOTE | 2024-07-06 06:36 | CT_ITS ---
PROCEDURE: SOFT TISSUE NECK WITH CONTRAST REASON FOR EXAM: Arthritis OF SPINE: LARGE HIATAL HERNIA, ON XRAY SHOWING SOMETHING. Deviated trachea on radiographs. TECHNIQUE: CT of the soft tissues of the neck from the orbits to the upper mediastinum with intravenous contrast. CONTRAST: 75 cc of Isovue 370. COMPARISON: None. FINDINGS: Airway: Shift of the trachea towards the right side of the midline due to volume loss in the right upper lobe. Salivary glands: Unremarkable. Lymph nodes: No cervical lymphadenopathy. Thyroid: 7 mm hypodense nodule in the anterior aspect of the upper pole of the right lobe of the thyroid suggestive of possible cyst or adenoma. Vasculature: Carotid arteries and internal jugular veins are unremarkable. Orbits: Unremarkable at visualized levels. Paranasal sinuses and mastoids: Grossly clear at visualized levels. Lung apices: Clear. Upper mediastinum: Visualized mediastinum is unremarkable. Bones: Multilevel degenerative changes of the spine. Straightening of the normal cervical lordosis. CT/Soft Tissue Neck WITH Contrast IMPRESSION: The trachea is displaced towards the right side of the midline due to volume lo ss in the right upper lobe. No mass lesion is seen. One or more dose reduction techniques were used (e.g., Automated exposure contr ol, adjustment of the mA and/or kV according to patient size, use of iterative reconstruction technique). Reading Location: [place] [id number]
== END | disposition home or self-care (01) ==
LOC: CT 06:35
PROVIDERS: PCP Family Medicine; Referring Provider Family Medicine; Visit Provider Family Medicine
DX: M47.819 Spondylosis without myelopathy or radiculopathy, site unspecified (principal)
CPT/HCPCS: 70491; Q9967

== ENCOUNTER 2024-10-09 20:06 | Observation (INO) | payer MEDICARE, SELFPAY ==
[2024-10-09 20:07] VITALS: BP 144/61; PULSE 72; RESP 20; TEMP 36.6; O2SAT 100
--- NOTE | 2024-10-09 21:00 | CT_ITS ---
PROCEDURE: PELVIS WITHOUT IV CONTRAST 10/10/2024 REASON FOR EXAM: INJURY TECHNIQUE: PELVIS WITHOUT IV CONTRAST One or more dose reduction techniques were used (e.g., Automated exposure control, adjustment of the mA and/or kV according to patient size, use of iterative reconstruction technique). RADIATION DOSE SUMMARY: CTDlvol: mGy DLP: mGycm FINDINGS: No osseous fractures or dislocation identified. Mild bilateral hip osteoarthritic changes evident by small marginal osteophytic lipping of its opposing articular surfaces with subcortical pseudocystic changes of the acetabulum and associated narrowed joint spaces. No evidence of femoral head fractures of structural collapse. No significant hip joints effusion. Degenerative changes of the sacroiliac joints. Femoral greater trochanter as well as ischial and iliac ensethopathy noted. Diffuse reduced bone density. Lumbar spondylosis. Normal non contrast CT appearance of the examined muscles. Vascular atheromatous calcifications. No pelvis collections CT/Pelvis without IV Contrast IMPRESSION: No osseous fractures or dislocation identified. Mild bilateral hip osteoarthritic changes. Degenerative changes of the sacroiliac joints. Diffuse reduced bone density. Reading Location[facility]
--- NOTE | 2024-10-09 21:00 | CT_ITS ---
PROCEDURE: SPINE LUMBAR WITHOUT CONTRAST 10/10/2024 REASON FOR EXAM: INJURY TECHNIQUE: SPINE LUMBAR WITHOUT CONTRAST Coronal and Sagittal reconstruction series were provided. One or more dose reduction techniques were used (e.g., Automated exposure control, adjustment of the mA and/or kV according to patient size, use of iterative reconstruction technique COMPARISON: 10-06-2023 RADIATION DOSE SUMMARY: CTDlvol: mGy DLP: mGycm FINDINGS: Straightened lumbar lordosis denoting myospasm. 1st degree anterolisthesis of L4 over L5 with L4-L5 degenerative facet arthropathy Stable L3 vertebral body compression fracture with cementoplasty seen involving L2-L3 and L3-L4 discs. Stable right linear hyperdense structure seen along L3 right neural elements and right side of its body. Normal rest of the vertebral bodies height and alignment. Intact vertebral bodies and neural arches. No definite acute fractures could be detected. Multilevel marginal lipping and sclerosis of the examined vertebral end plates. Multilevel reduced discs height. Multilevel degenerative facet arthropathy. Multilevel variable degrees of diffuse posterior disc bulges indenting the theca and inducing encroachment upon the neural exit foramina. Degenerative changes of the sacroiliac joints. Diffuse reduced bone density. No retro paraspinal soft tissue masses. No developmental canal stenosis. Aortoiliac atheromatous calcifications. CT/Spine Lumbar without Contrast IMPRESSION: Straightened lumbar lordosis denoting myospasm. 1st degree anterolisthesis of L4. Stable. Stable L3 vertebral body compression fracture with cementoplasty Lumbar spondylosis with multilevel facet arthropathy and diffuse posterior disc bulges inducing encroachment upon the neural exit foramina. Stable. Diffuse reduced bone density. Stable Reading Location: [facility]
--- NOTE | 2024-10-09 21:10 | RAD_ITS ---
PROCEDURE: ELBOW MIN 3 VIEWS 10/09/2024 REASON FOR EXAM: INJURY TECHNIQUE: ELBOW MIN 3 VIEWS FINDINGS: On the initial view, I believe there is a skin fold projecting over the lateral humeral epicondyle. No dislocation. No subluxation. No posterior fat pad sign RAD/Elbow min 3 Views IMPRESSION: No definite fracture Reading Location: [facility]
--- OUTSIDE RECORDS SUMMARY | 2024-10-09 21:18 | XMS RPT_ITS | CCD ---
Author Organization [facility] Care Team Providers Care Purchasing Specialist Name Role Phone Muir, Ramila Unavailable Unavailable Muir, Ramila Unavailable Unavailable DeFinis, Harumi Y Unavailable Unavailable DeFinis, Harumi Y Unavailable Unavailable Muir, Ramila Unavailable Unavailable Olga Hurst Primary Care Provider Dr. Olga Hurst Primary Care Provider Dr. Olga Hurst Referring Provider Dr. Rubin Arriaga Attending Provider [phone] Olga Hurst Primary Care Provider Olga Hurst Primary Care Provider Olga Hurst Primary Care Provider Olga Hurst Primary Care Provider Dr. Olga Hurst Primary Care Provider Dr. Olga Hurst Referring Provider Dr. Jb Joiner Attending Provider Dr. Olga Hurst Primary Care Provider Dr. Olga Hurst Referring Provider [phone] Jb Joiner Attending Provider Dr. Olga Hurst Primary Care Provider Dr. Olga Hurst Referring Provider [phone] Jb Joiner Attending Provider Dutch SOTELO, ASHLEIGH Cunha Attending Provider Dr. Olga Hurst Primary Care Provider Dr. Olga Hurst Referring Provider ASHLEIGH Brink Attending Provider Dr. Olga Hurst Primary Care Provider [phone] Olga Hurst Referring Provider [phone] Dr. Jb Joiner Attending Provider [phone] Olga Hurst Primary Care Provider [phone] Olga Hurst Referring Provider Dr. Jb Joiner Attending Provider [phone] ASHLEIGH Brink Attending Provider Dr. Jb Joiner Referring Provider Dr. Jb Joiner Other Provider Dr. Kimani Flowers Attending Provider [phone] Jodudleyiff, Olga Jennifer Primary Care Provider OLGA HURST JENNIFER Primary Care Unavailable Jolliff, Olga S Attending Unavailable Jolliff, Olga S Primary Care Unavailable Jolliff, Olga S Referring Unavailable Jolliff, Olga S Attending Unavailable Jolliff, Olga S Referring Unavailable Jolliff, Olga S Primary Care Unavailable Vellanki, Sherin Referring Unavailable Vellanki, Sherin Attending Unavailable Jolliff, Olga S Primary Care Unavailable Vellanki, Sherin Attending Unavailable Jolliff, Olga S Primary Care Unavailable Jolliff, Olga S Referring Unavailable Francine Pierce Attending Unavailable Jolliff, Olga S Primary Care Unavailable Jolliff, Olga S Referring Unavailable Jolliff, Olga S Primary Care Unavailable Jb Joiner Attending Unavailable Jolliff, Olga S Referring Unavailable Daphnie Brink Attending Unavail able Marcilliff, Olga S Primary Care Unavailable Jb Joiner Consulting Unavailable Kimani Flowers Attending Unavailable Marcilliff, Olga S Primary Care Unavailable Rhys Jb Referring Unavailable Vellanki, Sherin Attending Unavailable Jolliff, Olga S Primary Care Unavailable Jolliff, Olga S Referring Unavailable Jolliff, Olga S Attending Unavailable Jolliff, Olga S Primary Care Unavailable Mollison, Pavel Attending Unavailable Jolliff, Olga S Referring Unavailable Jolliff, Olga S Primary Care Unavailable Jb Joiner Attending Unavailable Jolliff, Olga S Referring Unavailable Jolliff, Olga S Primary Care Unavailable Mollison, Pavel Attending Unavailable Jolliff, Olga S Referring Unavailable Jolliff, Olga S Primary Care Unavailable Mollison, Pavel Attending Unavailable Jolliff, Olga S Referring Unavailable Jolliff, Olga S Primary Care Unavailable Mollison, Pavel Attending Unavailable Jolliff, Olga S Referring Unavailable Jolliff, Olga S Primary Care Unavailable Mollison, Pavel Consulting Unavailable Mollison, Pavel Referring Unavailable Mollison, Pavel Attending Unavailable Jolliff, Olga S Primary Care Unavailable Jolliff, Olga S Attending Unavailable Jolliff, Olga S Primary Care Unavailable Jolliff, Olga S Attending Unavailable Jolliff, Olga S Referring Unavailable Jolliff, Olga S Primary Care Unavailable Chadwick Marin Attending Unavailable Jolliff, Olga S Primary Care Unavailable Jolliff, Olga S Primary Care Unavailable Jack Wells Attending Unavailable Jolliff, Olga S Referring Unavailable Jolliff, Olga S Primary Care Unavailable BadJb melgoza Attending Unavailable Jolliff, Olga S Referring Unavailable Jolliff, Olga S Attending Unavailable Jolliff, Olga S Primary Care Unavailable Jb Joiner Attending Unavailable Jb Joiner Referring Unavailable Jolliff, Olga S Primary Care Unavailable Basali Ayman Referring Unavailable Basali, Leonid Attending Unavailable Jolliff, Olga S Primary Care Unavailable Mollison, Pavel Attending Unavailable Mollison, Pavel Referring Unavailable Jolliff, Olga S Primary Care Unavailable Jolliff, Olga S Referring Unavailable Vasu Gonzalez Attending Unavailable Jolliff, Olga S Primary Care Unavailable Amaraiff Dr. Olga DONAHUE Primary Care Provider Dr. Olga Hurst MD Referring Provider Pavel Cartagena MD Attending Provider Dr. Olga Hurst MD Attending Provider Dr. Jb Joiner MD Attending Provider Dr. Francine Pierce MD Attending Provider Allergies Allergy Classification Reported Allergen(s) Allergy Type Date of Onset Reaction(s) Facility (20 sources) amoxicillin; Translations: [AMOXICILLIN] Drug Allergy 04-16-20 05 Swelling [facility] Work Phone: [phone] (20 sources) cephalexin; Translations: [CEPHALEXIN] Drug Allergy 07-16-19 13 Rash [facility] Work Phone: [phone] (20 sources) codeine; Translations: [CODEINE] Drug Allergy 06-25-19 08 GI Upset [facility] Work Phone: [phone] (5 sources) cyclobenzaprine Drug Allergy 06-19-19 17 swelling [facility] Work Phone: [phone] (5 sources) diclofenac Drug Allergy 06-27-19 17 swelling [facility] Work Phone: [phone] (18 sources) diclofenac; Translations: [DICLOFENAC] Drug Allergy 04-16-20 05 Swelling [facility] Work Phone: [phone] (20 sources) dicyclomine; Translations: [dicyclomine] Drug Allergy 06-19-19 17 swelling [facility] Work Phone: [phone] (5 sources) hydrOXYzine Drug Allergy 06-27-19 17 swelling [facility] Work Phone: [phone] (5 sources) hydrOXYzine Drug Allergy 06-19-19 17 swelling [facility] Work Phone: [phone] (20 sources) ketoprofen; Translations: [KETOPROFEN] Drug Allergy 04-16-20 05 Swelling [facility] Work Phone: [phone] (20 sources) predniSONE; Translations: [PREDNISONE] Drug Allergy 09-12-19 15 Rash [facility] Work Phone: [phone] (5 sources) PSEUDOPHEDRINE drug allergy 06-19-19 17 [facility] Work Phone: [phone] (20 sources) SULFABENZAMIDE; Translations: [SULFABENZAMIDE] drug allergy 04-16-20 05 Anaphylaxis [facility] Work Phone: [phone] (5 sources) FLEXARIL drug allergy 06-27-19 17 swelling [facility] Work Phone: [phone] (20 sources) cyclobenzaprine; Translations: [CYCLOBENZAPRINE HCL] Drug Allergy 04-16-20 05 [facility] Work Phone: (20 sources) hydrOXYzine; Translations: [HYDROXYZINE HCL] Drug Allergy 04-16-20 05 Swelling [facility] Work Phone: (13 sources) Pseudoephedrine; Translations: [PSEUDOEPHEDRINE] Drug Allergy 08-25-19 10 Intolerance [facility] Work Phone: (20 sources) traMADol; Translations: [TRAMADOL] Drug Allergy 01-01-20 15 Intolerance [facility] Work Phone: (12 sources) DICICLOMINE [Other] Propensity to adverse reactions 04-16-20 05 Swelling [facility] Work Phone: (14 sources) Clindamycin Drug Allergy 10-01-19 22 [facility] (15 sources) Diclofenac; Translations: [diclofenac sodium] Drug Allergy 10-01-19 22 [facility] (15 sources) Pseudoephedrine; Translations: [pseudoephedrine HCl] Drug Allergy 10-01-19 22 Other [facility] (1 source) OTHER; Translations: [OTHER] Propensity to adverse reactions (disorder) 04-16-20 05 [facility] (1 source) Clindamycin Drug Allergy 07-14-19 [facility] (1 source) cyclobenzaprine Drug Allergy 07-14-19 [facility] (1 source) Hydroxychloroquine Drug Allergy 07-14-19 [facility] (1 source) hydrOXYzine Drug Allergy 07-14-19 [facility] (1 source) traMADol Drug Allergy 07-14-19 [facility] (1 source) Hydroxychloroquine Drug Allergy 07-14-19 25 [facility] Medications Current Medications Medication Drug Class(es) Dates Sig (Normalized) Sig (Original) 8 hr acetaminophen 650 mg extended release oral tablet (1 source) Start: 10-27-2023 take 1 tablet by mouth every eight hours Acetaminophen (Tylenol Arthritis Pain) 650 mg tablet extended release Active 650 mg PO Q8H October 27, 2023 12:00am [id number] 200 actuat albuterol 0.09 mg/actuat metered dose inhaler (4 sources) beta2-Adrenergic Agonist Start: 08-02-2023 Albuterol Sulfate (Ventolin Hfa) 90 mcg/actuation HFA aerosol inhaler Active 2 NMA INHALATION EVERY 4 HOURS NEEDED as needed for Wheezing 6.7 August 02, 2023 12:00am Start: 08-02-2023 take 1 puff(s) by in halation every four hours as needed Albuterol Sulfate (Ventolin Hfa) 90 mcg/actuation HFA aerosol inhaler Active 2 PUFF INHALATION EVERY 4 HOURS NEEDED 6.7 August 02, 2023 12:00am atorvastatin 20 mg oral tablet (20 sources) HMG-CoA Reductase Inhibitor Start: 03-15-2018 End: 10-27-2023 take 1 tablet by mouth once daily Atorvastatin 20 mg tablet Active 20 mg PO DAILY October 27, 2023 12:00am Start: 06-26-2016 take 1 tablet by mouth once da alexandre ATORVASTATIN CALCIUM 20 MG TABS One tablet by mouth daily ATORVASTATIN CALCIUM [id number] Rubin Arriaga MD Start: 07-20-2015 take 1 tablet by stuart once daily at bedtime for hyperlipidemia atorvastatin (LIPITOR) 40 mg tablet Take 1 tablet by mouth daily at bedtime. For cholesterol. 30 tablet 11 07/20/2015 Active Comment on above: Take 1 tablet by stuart th daily at bedtime. For cholesterol. betamethasone 0.5 mg/ml / clotrimazole 10 mg/ml topical cream (20 sources) Azole Antifungal, Corticosteroid Start: 01-25-2020 clotrimazole-betameth asone (LOTRISONE) cream Apply 1 application to affected area twice daily. 30 g 12/25/2021 Active Comment on above: Apply 1 application to affected area twice daily. calcium citrate 1500 mg / cholecalciferol 250 unt oral tablet (20 sources) Vitamin D Start: 09-16-2022 Calcium Citrate-Vitamin D3 315 mg-6.25 mcg (250 unit) tablet Active 1 {tbl} PO TWICE A DAY September 16, 2022 1:25pm Start: 09-16-2022 take 2 tablets by mo [facility] twice daily Calcium Citrate-Vitamin D3 Active 2 TABLET PO TWICE A DAY September 16, 2022 1:25pm Start: 11-10-2013 End: 09-16-2022 Calcium Citrate-Vitamin D3 1 EACH tablet Discontinued 2 NMA PO NEEDED as needed for Supplement [employer] [place] November 10, 2013 12:00am September 16, 2022 1:27pm Start: 11-10-2013 End: 09-16-2022 Calcium Citrate-Vitamin D3 Discontinued 2 EACH PO NEEDED November 10, 2013 12:00am September 16, 2022 1:27pm Start: 05-25-2012 Calcium Citrat e-Vitamin D3 (CITRACAL + D) 315-250 mg-unit Tab Take as directed 05/25/2012 Active Comment on above: Take as directed estradiol 0.1 mg/ml vaginal cream (12 sources) Estrogen Start: 8 estradiol (ESTRACE) 0.01 % (0.1 mg/gram) vaginal cream Apply fingertip amount nightly x 4 weeks then use 2-3 times per week 1 Tube 01/13/2018 Active Comment on above: Apply fingertip amou nt nightly x 4 weeks then use 2-3 times per week ferrous sulfate 325 mg oral tablet (2 sources) Start: 4 End: 5 take 1 tablet by mouth once daily as needed Ferrous Sulfate (Ferosul) 325 mg (65 mg iron) tablet Active 325 mg PO daily as needed July 13, 2024 9:41am fluconazole 150 mg oral tablet (13 sources) Azole Antifungal Start: 2 End: 2 fluconazole (DIFLUCAN) 150 mg tablet Take 1 tablet by mouth one time only for 1 dose. Take one tablet today and one tablet in 72hrs. 2 tablet 0 12/25/2021 12/25/2021 Active Start: 11-01-2018 fluconazole (D IFLUCAN) 150 mg tablet Take one tablet today and one tablet in 3 days 2 tablet 11/01/2018 Active Comment on above: Take one tablet toda y and one tablet in 3 days Take 1 tablet by stuart th one time only for 1 dose. Take one tablet today and one tablet in 72hrs. gabapentin 100 mg oral capsule (20 sources) Anti-epileptic Agent Start: 06-16-2024 take 1 capsule by mouth three times daily Gabapentin 100 mg capsule Active 100 mg PO THREE TIMES A DAY 90 June 16, 2024 2:12pm Start: 02-04-2023 End: 06-16-2024 take 1 capsule by mouth twice daily Gabapentin 100 mg capsule Discontinued 100 mg PO TWICE A DAY 60 December 22, 2023 9:08am June 16, 2024 2:12pm Start: 02-17-2022 End: 02-04-2023 take 1 capsule by mouth once daily in the evening Gabapentin 100 mg capsule Discontinued 100 mg PO .Every evening June 10, 2022 9:23am February 04, 2023 8:47am Comment on above: TAKE 1 CAPSULE BY MO UTH EVERY DAY in the evening lisinopril 10 mg oral tablet (20 sources) Angiotensin Converting Enzyme Inhibitor Start: 10-01-2022 End: 10-05-2023 take 1 tablet by mouth twice daily Lisinopril 10 mg tablet Active 10 mg PO TWICE A DAY 180 October 05, 2023 11:36am Start: 11-10-2013 End: 10-01-2022 take 1 tablet by mouth once daily Lisinopril 10 MG tablet Discontinued 10 mg PO DAILY November 10, 2013 12:00am October 01, 2022 3:49pm Comment on above: Take 1 tablet by stuart once daily. mag hydrox/aluminum hyd/simeth (MAGLOX ORAL) (12 sources) mag hydrox/alumi num hyd/simeth (MAGLOX ORAL) Take by mouth. Active mag hydrox/alumi num hyd/simeth (MAGLOX ORAL) Take by mouth. 0 Active Comment on above: Take by mouth. metroNIDAZOLE 0.0075 mg/mg vaginal gel (12 sources) Nitroimidazole Antimicrobial Start: 07-26-2018 metroNIDAZOLE (METROGEL VAGINAL) 0.75 % Vaginal Gel Twice weekly vaginally x 6 months after initial course of flagyl 1 Tube 5 07/26/2018 Active Comment on above: Twice weekly vaginal ly x 6 months after initial course of flagyl miSOPROStol 0.2 mg oral tablet (12 sources) Prostaglandin E1 Analog Start: 07-12-2018 miSOPROStol (CYTOTEC) 200 mcg tablet Take two tablets PO night before procedure and two tablets morning of procedure 4 tablet 07/12/2018 Active Comment on above: Take two tablets PO night before procedure and two tablets morning of procedure nystatin 100 unt/mg topical powder (13 sources) Polyene Antifungal Start: 07-13-2024 Nystatin (Nystop) 100,000 unit/gram powder Active 1 NMA TOPICAL TWICE A DAY 45 July 13, 2024 12:00am Start: 10-14-2017 nystatin (NYST OP) powder Apply 1 application to affected area four times daily. 1 Bottle 2 10/14/2017 Active Comment on above: Apply 1 application to affected area four times daily. 24 hr oxybutynin chloride 10 mg extended release oral tablet (1 source) Cholinergic Muscarinic Antagonist Start: 07-14-19 25 take 1 tablet by mouth once daily Oxybutynin Chloride 10 mg tablet extended release 24hr Active 10 mg PO daily July 13, 2024 12:00am oxyCODONE hydrochloride 5 mg oral tablet (12 sources) Opioid Agonist Start: 09-29-19 17 oxyCODONE IR (ROXICODONE) 5 mg immediate release tablet 09/28/2016 Active phenazopyridine hydrochloride 200 mg oral tablet (12 sources) Start: 01-13-20 18 phenazopyridine (PYRIDIUM, GERIDIUM) 200 mg tablet 01/12/2018 Active tiZANidine 4 mg oral tablet (12 sources) Central alpha-2 Adrenergic Agonist Start: 01-05-20 15 take 1 tablet by mouth every eight hours as needed for muscle spasms tiZANidine (ZANAFLEX) 4 mg tablet Indications: Lumbar strain, sequela Take 1 tablet by mouth every 8 hours as needed (muscle spasms). 15 tablet 0 01/04/2015 Active Comment on above: Take 1 tablet by stuart every 8 hours as needed (muscle spasms). Completed/Discontinued Medications Medication Drug Class(es) Dates Sig (Normalized) Sig (Original) acetaminophen 325 mg / oxyCODONE hydrochloride 5 mg oral tablet (10 sources) Opioid Agonist Start: 06-19-2016 End: 06-26-2016 PERCOCET 5-325 MG TABS as directed OXYCODONE-ACETAMI ERI [id number] Daphnie Conte RN aspirin 81 mg delayed release oral tablet (20 sources) Platelet Aggregation Inhibitor, Nonsteroidal Anti-inflammatory Drug Start: 06-19-2016 take 1 tablet by mouth once daily ASPIRIN EC 81 MG TBEC One tablet by mouth daily ASPIRIN [id number] Daphnie Conte RN Start: 11-10-2013 End: 10-27-2023 take 1 tablet by mouth once daily Aspirin 81 MG tablet,chewable Discontinued 81 mg PO DAILY@0800 November 10, 2013 12:00am October 27, 2023 3:16pm Aspirin 81 mg Ta b Take 81 mg by mouth. Active Comment on above: Take 81 mg by mouth. azithromycin 250 mg oral tablet (4 sources) Macrolide Antimicrobial Start: 08-02-19 End: 10-27-19 Azithromycin (Zithromax Z-Mathew) 250 mg tablet Discontinued 0 PO .COMPLEX 6 August 02, 2023 12:00am October 27, 2023 3:17pm For 250 mg dose pack: take 500 mg today (day 1), then 250 mg for 4 days (days 2-5) PO calcium citrate (2 sources) Start: 06-19-19 take 1 tablet by mouth once daily CALCIUM CITRATE + D TABS One tablet by mouth daily CALCIUM CITRATE-VITAMIN D TABS [id number] Daphnie Conte RN CALCIUM CITRATE-VITAMIN D TABS (3 sources) Start: 06-19-19 17 take 1 tablet by mouth once daily CALCIUM CITRATE + D TABS One tablet by mouth daily CALCIUM CITRATE-VITAMIN D TABS [id number] Daphnie Conte RN diazePAM 2 mg oral tablet (1 source) Benzodiazepine Start: 10-06-19 End: 10-27-19 take 1 tablet by mouth three times daily as needed for pain Diazepam (Valium) 2 mg tablet Discontinued 2 mg PO THREE TIMES A DAY as needed for Muscle pain/spasm 15 October 06, 2023 12:00am October 27, 2023 3:17pm docusate sodium 100 mg oral capsule (14 sources) Start: 09-24-19 End: 03-15-20 18 take 1 capsule by mouth once daily Docusate Sodium 100 MG capsule Discontinued 100 mg PO DAILY September 23, 2016 12:00am March 15, 2018 12:41pm doxycycline hyclate 100 mg oral tablet (4 sources) Tetracycline-class Drug Start: 08-02-19 End: 10-27-19 24 take 1 tablet by mouth twice daily Doxycycline Hyclate 100 mg tablet Discontinued 100 mg PO TWICE A DAY August 02, 2023 12:00am October 27, 2023 3:17pm famotidine 20 mg oral tablet (2 sources) Histamine-2 Receptor Antagonist Start: 10-27-19 End: 02-11-20 take 1 tablet by mouth once daily as needed Famotidine (Zantac-360 (Famotidine)) 20 mg tablet Discontinued 20 mg PO DAILY as needed October 27, 2023 3:23pm February 11, 2024 10:44am folic acid 1 mg oral tablet (20 sources) Start: 09-17-19 take 2 mg by mouth once daily Folic Acid Active 2 MG PO DAILY September 16, 2022 1:26pm Start: 10-04-2020 End: 09-16-2022 take 1 tablet by mouth once daily Folic Acid 1 mg tablet Discontinued 1 mg PO DAILY October 04, 2020 12:00am September 16, 2022 1:27pm Start: 01-18-2020 End: 02-11-2024 take 2 tablets by mouth once daily Folic Acid 1 mg tablet Discontinued 2 mg PO DAILY September 16, 2022 1:26pm February 11, 2024 10:44am Comment on above: Take 2 mg by mouth o nce daily. hydroCHLOROthiazide 25 mg oral tablet (20 sources) Thiazide Diuretic Start: 2013 End: 2022 take 1 tablet by mouth once daily Hydrochlorothiazide 25 MG tablet Discontinued 25 mg PO DAILY November 10, 2013 12:00am September 16, 2022 1:54pm Comment on above: Take 1 tablet by stuart th once daily. leucovorin 15 mg oral tablet (18 sources) Folate Analog Start: 2019 End: 2023 take 1 tablet by mouth every week Leucovorin Calcium 15 mg tablet Discontinued 15 mg PO EVERY WEEK September 16, 2022 12:00am February 11, 2024 10:44am Comment on above: Take 15 mg by mouth one time a week. loratadine 10 mg oral tablet (5 sources) Start: 2022 End: 2023 take 1 tablet by mouth once daily as needed for congestion Loratadine 10 mg tablet Discontinued 10 mg PO DAILY as needed for nasal/sinus congestion/drainage February 04, 2023 12:00am February 11, 2024 10:45am methotrexate 2.5 mg oral tablet (20 sources) Folate Analog Metabolic Inhibitor Start: 2021 End: 2023 Methotrexate Sodium 2.5 mg tablet Discontinued 25 mg PO EVERY WEEK July 12, 2021 12:00am February 11, 2024 10:45am Start: 07-12-2021 take 25 mg by mouth every week Methotrexate Sodium Active 25 MG PO EVERY WEEK July 12, 2021 12:00am Start: 10-04-2020 End: 07-12-2021 take 1 tablet by mouth every week Methotrexate Sodium 15 mg tablet Discontinued 15 mg PO EVERY WEEK October 04, 2020 12:00am July 12, 2021 3:14pm Start: 01-20-2020 methotrexate 2 .5 mg tablet START BY TAKING 4 TABLETS ONCE A WEEK FOR 1-2 WEEKS THEN INCREASE TAKING 5 TABLETS ONCE A WEEK 01/20/2020 Active Comment on above: START BY TAKING 4 TA BLETS ONCE A WEEK FOR 1-2 WEEKS THEN INCREASE TAKING 5 TABLETS ONCE A WEEK Molnupiravir (16 sources) Start: 07-31-2022 End: 07-31-2022 take 1 capsule by mouth every twelve hours Molnupiravir 200 mg capsule Discontinued 800 mg PO Q12H 40 July 31, 2022 12:00am August 04, 2022 12:00am July 31, 2022 9:57am Start: 07-31-2022 End: 08-05-2022 take 1 capsule by mouth every twelve hours Molnupiravir 200 mg capsule Discontinued 800 mg PO Q12H 40 July 31, 2022 12:00am August 04, 2022 12:00am August 05, 2022 12:04am Start: 07-31-2022 End: 07-31-2022 take 800 mg by mouth every twelve hours Molnupiravir Discontinued 800 MG PO Q12H 40 July 30, 2022 11:00pm July 31, 2022 8:57am Start: 07-31-2022 End: 08-05-2022 take 800 mg by mouth every twelve hours Molnupiravir Discontinued 800 MG PO Q12H 40 July 30, 2022 11:00pm August 04, 2022 11:04pm Start: 07-31-2022 End: 08-05-2022 take 800 mg by mouth every twelve hours Molnupiravir Discontinued 800 MG PO Q12H 40 July 31, 2022 12:00am August 05, 2022 12:04am Start: 07-31-2022 take 800 mg by mouth every twelve hours Molnupiravir Active 800 MG PO Q12H 40 July 31, 2022 12:00am Start: 07-31-2022 End: 07-31-2022 take 800 mg by mouth every twelve hours Molnupiravir Discontinued 800 MG PO Q12H 40 July 31, 2022 12:00am July 31, 2022 9:57am polyethylene glycol [id number] mg powder for oral solution (14 sources) Osmotic Laxative Start: 03-15-2018 End: 07-12-2021 Polyethylene Glycol 3350 (Miralax) 17 gram/dose powder Discontinued 17 mg PO DAILY as needed for Constipation March 15, 2018 1:00am July 12, 2021 3:15pm predniSONE 10 mg oral tablet (14 sources) Start: 10-28-2016 End: 03-15-2018 take 4 tablets by mouth once daily, then take 3 tablets by mouth once daily, then take 2 tablets by mouth once daily, then take 1 tablet by mouth once daily, then take 1 tablet by mouth every other day Prednisone 10 MG tablet Discontinued 10 mg PO DIRECTED 33 October 28, 2016 12:00am March 15, 2018 11:33am Take 4 tablets daily for 3 days, then 3 daily for 3 days, then 2 daily for 3 days, then 1 a day for 3 days then 1 QOD for 3 doses. rosuvastatin calcium 5 mg oral tablet (20 sources) HMG-CoA Reductase Inhibitor Start: 11-10-2013 End: 03-15-2018 take 1 tablet by mouth at bedtime Rosuvastatin 5 MG tablet Discontinued 5 mg PO AT BEDTIME November 10, 2013 12:00am March 15, 2018 11:32am Problems Active Problems Problem Classification Problem Date Documented Date Episodic/Chronic Acute bronchitis (4 sources) Acute bronchitis with bronchospasm; Translations: [Acute bronchitis, unspecified] 08-02-2023 Episodic Allergic reactions (14 sources) Eruption due to drug; Translations: [Generalized skin eruption due to drugs and medicaments taken internally] 10-29-2016 Episodic Complication of device; implant or graft (2 sources) Vaginal irritation; Translations: [Other specified complication of genitourinary prosthetic devices, implants and grafts, initial encounter] Episodic Disorders of lipid metabolism (20 sources) Hyperlipidemia; Translations: [Hyperlipidemia, unspecified] Onset: 10-17-2005 06-19-2016 Chronic Epilepsy; convulsions (20 sources) Seizure; Translations: [Unspecified convulsions] 02-27-2011 Episodic Essential hypertension (20 sources) Hypertensive disorder; Translations: [Essential (primary) hypertension] Onset: 01-19-2006 Resolved: 09-23-2011 06-19-2016 Chronic Genitourinary symptoms and ill-defined conditions (12 sources) Female stress incontinence; Translations: [Stress incontinence (female) (male)] Onset: 12-19-2008 12-19-2008 Chronic Menopausal disorders (13 sources) Atrophic vaginitis; Translations: [Postmenopausal atrophic vaginitis] Onset: 12-19-2008 Resolved: 09-23-2011 12-19-2008 Chronic Mycoses (3 sources) Candidiasis of skin; Translations: [Candidiasis of skin and nail] Episodic Neoplasms of unspecified nature or uncertain behavior (14 sources) Intracranial tumor; 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] 03-22-2019 Chronic Nonspecific chest pain (20 sources) Tight chest; Translations: [Other chest pain] Onset: 06-23-2024 10-04-2020 Episodic Osteoarthritis (12 sources) Osteoarthritis; Translations: [Osteoarthrosis, unspecified whether generalized or localized, lower leg] Onset: 11-19-2007 05-31-2009 Chronic Other and unspecified benign neoplasm (12 sources) Benign meningioma; Translations: [Benign neoplasm of meninges, unspecified] 02-27-2011 Chronic Other congenital anomalies (2 sources) Herniated urinary bladder 07-13-2024 Chronic Comment on above: isaac consult, dis cussed options, recommend cystocele repair, discussed pessary patient declined Other nervous system disorders (10 sources) Polyneuropathy; Translations: [Polyneuropathy, unspecified] 02-17-2022 Chronic Other nervous system disorders (9 sources) Polyneuropathy, unspecified; Translations: [Unspecified hereditary and idiopathic peripheral neuropathy] 02-17-2022 Chronic Other nervous system disorders (6 sources) Carpal tunnel syndrome of right wrist; Translations: [Carpal tunnel syndrome, right upper limb] 07-29-2023 Chronic Other nervous system disorders (5 sources) Carpal tunnel syndrome, right upper limb; Translations: [Carpal tunnel syndrome] Onset: 09-04-2023 07-29-2023 Chronic Other nervous system disorders (3 sources) Lesion of ulnar nerve, right upper limb; Translations: [Cubital tunnel syndrome on right] Onset: 12-22-2023 06-16-2024 Chronic Other nervous system disorders (14 sources) Facial paresthesia; Translations: [Paresthesia of skin] 10-08-2021 Episodic Other nervous system disorders (14 sources) Paresthesia of right upper limb; Translations: [Paresthesia of skin] 10-08-2021 Episodic Other nervous system disorders (11 sources) Trigeminal nerve disorder; 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, unspecified] 02-17-2022 Episodic Other nervous system disorders (6 sources) Disorder of trigeminal nerve, unspecified; Translations: [Trigeminal nerve disorder, unspecified] 02-17-2022 Episodic Other non-traumatic joint disorders (8 sources) Shoulder pain; Translations: [Pain in left shoulder] 11-11-2013 Episodic Other non-traumatic joint disorders (6 sources) Pain in left shoulder; Translations: [Left shoulder pain] 11-11-2013 Episodic Other nutritional; endocrine; and metabolic disorders (7 sources) Body mass index (BMI) 32.0-32.9, adult; Translations: [Body mass index (BMI) 33.0-33.9, adult] Onset: 06-26-2016 08-25-2016 Chronic Other nutritional; endocrine; and metabolic disorders (3 sources) Body mass index (BMI) 33.0-33.9, adult; Translations: [Body Mass Index 33.0-33.9, adult] Onset: 06-26-2016 06-26-2016 Chronic Other screening for suspected conditions (not mental disorders or infectious disease) (3 sources) Cancer cervix screening status; Translations: [Encounter for screening for malignant neoplasm of cervix] Onset: 12-19-2008 Resolved: 09-23-2011 09-23-2011 Episodic Other upper respiratory disease (8 sources) Laryngeal spasm; Translations: [Laryngeal spasm] 08-01-2022 Episodic Other upper respiratory infections (9 sources) Acute sinusitis; Translations: [Acute sinusitis, unspecified] 02-04-2023 Episodic Prolapse of female genital organs (20 sources) Prolapse of female genital organs; Translations: [Female genital prolapse, unspecified] Onset: 12-19-2008 Chronic Rehabilitation care; fitting of prostheses; and adjustment of devices (7 sources) Patient encounter status; Translations: [Encounter for fitting and adjustment of other specified devices] Chronic Rheumatoid arthritis and related disease (15 sources) Rheumatoid arthritis; Translations: [Rheumatoid arthritis, unspecified] Onset: 12-30-2023 04-13-2020 Chronic Spondylosis; intervertebral disc disorders; other back problems (14 sources) Degeneration of intervertebral disc; Translations: [Degenerative disc disease] Onset: 05-31-2013 05-31-2013 Chronic Spondylosis; intervertebral disc disorders; other back problems (14 sources) Low back pain; Translations: [Lumbago] Onset: 12-24-2006 05-31-2009 Episodic Sprains and strains (13 sources) Strain of neck muscle; Translations: [Strain of muscle, fascia and tendon at neck level, initial encounter] Onset: 01-23-2014 01-23-2014 Episodic Superficial injury; contusion (1 source) Contusion of lower back and pelvis, initial encounter; Translations: [Contusion of lumbar spinal region] 10-14-2023 Episodic Viral infection (11 sources) Disease caused by 2019-nCoV; Translations: [COVID-19] 08-01-2022 Episodic Past or Other Problems Problem Classification Problem Date Documented Da te Episodic/Chronic Abdominal pain (12 sources) Left flank pain; Translations: [Unspecified abdominal pain] Onset: 05-31-2013 05-31-2013 Episodic Cancer of brain and nervous system (5 sources) History of malignant neoplasm of nervous system; Translations: [Personal history of malignant neoplasm of brain] Onset: 06-26-2016 06-26-2016 Episodic Conditions associated with dizziness or vertigo (5 sources) Dizziness; Translations: [Dizziness and giddiness] Onset: 08-25-2016 08-25-2016 Episodic Deficiency and other anemia (1 source) Iron deficiency anemia, unspecified; Translations: [Iron deficiency anemia, unspecified] Onset: 09-23-2023 Episodic Diabetes mellitus without complication (12 sources) Impaired fasting glycemia; Translations: [Impaired fasting glucose] Onset: 01-02-2010 07-17-2010 Episodic Genitourinary symptoms and ill-defined conditions (20 sources) Dysuria; Translations: [Dysuria] Onset: 12-19-2008 Resolved: 09-23-2011 05-31-2013 Episodic Nonmalignant breast conditions (1 source) Solitary cyst of breast; Translations: [Solitary cyst of unspecified breast] Onset: 03-27-2009 Resolved: 09-23-2011 09-23-2011 Episodic Other bone disease and musculoskeletal deformities (12 sources) Disorder of skeletal system; Translations: [Disorder of bone, unspecified] Onset: 11-10-2006 05-31-2009 Episodic Other nervous system disorders (2 sources) Paresthesia of skin; Translations: [Paresthesia of skin] Onset: 09-04-2023 Episodic Other non-traumatic joint disorders (1 source) Pain in lower limb; Translations: [Pain in unspecified knee] Onset: 05-02-2005 Resolved: 11-19-2007 11-05-2023 Episodic Pneumonia (except that caused by tuberculosis or sexually transmitted disease) (8 sources) Pneumonia; Translations: [Pneumonia, unspecified organism] Onset: 08-02-2023 08-02-2023 Episodic Residual codes; unclassified (1 source) Illness, unspecified; Translations: [Illness, unspecified] Onset: 08-07-2023 Episodic Syncope (5 sources) Syncope; Translations: [Syncope and collapse] Onset: 06-19-2016 06-19-2016 Episodic Urinary tract infections (13 sources) Recurrent urinary tract infection; Translations: [Urinary tract infection, site not specified] Onset: 05-31-2013 05-31-2013 Episodic Results Test Name Value Interpretation Reference Range Facility 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 Francine momin MD Age/Sex: 89/F Location: [facility] Status: Signed Intake Vital Signs 06/16/24 12:59 07/13/24 09:40 07/13/24 09:46 Height 5 ft 2 in 5 ft 1 in 5 ft 2 in Weight: 165 lb 163 lb 4 oz BMI 30.2 30.8 BP 126/68 H 135/69 H Blood Pressure Location Lt brachial Position Sitting Respiration 16 Pulse 77 Pulse Source Monitor Temp 98.2 F Pulse Oximetry (%) 97 Oxygen Delivery Method room air Intake Visit Reasons: PROLAPSE OF ANTERIOR VAGINAL WALL (MILLWLeonid) Field Placement Director Required: No Allergies amoxicillin (Amoxicillin) Allergy (Severe, Verified 07/13/24 09:41) Swelling cyclobenzaprine HCl (From Flexeril) Allergy (Severe, Verified 07/13/24 09:41) Swelling diclofenac sodium (From Voltaren) Allergy (Severe, Verified 07/13/24 09:41) Swelling dicyclomine Allergy (Severe, Verified 07/13/24 09:41) Swelling ketoprofen (From Oruvail) Allergy (Severe, Verified 07/13/24 09:41) Swelling sulfabenzamide Allergy (Severe, Verified 07/13/24 09:41) Anaphylaxis tramadol Allergy (Unknown, Verified 07/13/24 09:41) Unknown hydroxychloroquine (From Plaquenil) Allergy (Verified 07/13/24 09:41) Hives hydroxyzine HCl (From Atarax) Allergy (Verified 07/13/24 09:41) Swelling prednisone Allergy (Verified 07/13/24 09:41) Hives pseudoephedrine HCl (From Sudafed) Allergy (Verified 07/13/24 09:41) Other cephalexin Adverse Reaction (Severe, Verified 07/13/24 09:41) Rash clindamycin Adverse Reaction (Severe, Verified 07/13/24 09:41) Hives codeine Adverse Reaction (Severe, Verified 07/13/24 09:41) Upset Stomach Medications ???Medication ???Instructions ???Recorded ???Confirmed ???Type calcium 315 mg (as 1 tab PO BID Supplement Kettle Operator Head 07/13/24 History citrate)-vitamin D3 6.25 mcg (250 unit) tablet albuterol sulfate 90 mcg/actuation 2 puff inhalation Q4H PRN PRN 07/13/24 Rx aerosol inhaler (Ventolin HFA) Wheezing 30 days #6.7 grams lisinopril 10 mg tablet 10 mg PO BID blood pressure #180 0 10/05/23 07/13/24 Rx tabs acetaminophen 650 mg 650 mg PO Q8H 10/27/23 07/13/24 Hi story tablet,extended release (Tylenol Arthritis Pain) atorvastatin 20 mg tablet 20 mg PO DAILY 10/27/23 07/13/24 H istory gabapentin 100 mg capsule 100 mg PO TID #90 caps 06/16/24 Rx ferrous sulfate 325 mg (65 mg 325 mg PO QDAY PRN 07/13/24 History iron) tablet (FeroSul) nystatin 100,000 unit/gram topical 1 applic topical BID #45 ea 06/2507/13/24 Rx powder (Nystop) oxybutynin chloride 10 mg 10 mg PO QDAY 07/13/24 07/13/24 Hi story tablet,extended release 24 hr Is last menstrual period known: No Post menopausal: Yes Patient : No : No PFSH Medical History Wears glasses Wears hearing aid Wears dentures Post-menopausal Ambulates with cane Walker as ambulation aid Low iron High cholesterol Restless legs Heartburn Non-smoker Leg cramps History of echocardiogram Cardiology follow-up encounter COVID-19 Rheumatoid arthritis Pure hypercholesterolemia Essential hypertension Incontinence Back pain Limb weakness Shoulder pain Hemorrhoids Arthritis Syncope Brain tumor Chest pressure Surgical History History of back surgery History of breast biopsy History of appendectomy History of knee replacement procedure of left knee History of brain surgery Family History Mother Heart disease Father Heart disease Other Cancer Social History (Updated 07/13/24 @ 09:43 by Samantha Holman) number of children: 3 Smoking Status: Never smoker second hand exposure: No alcohol intake: never substance use type: does not use what type of physical activity do you participate in: none wolf/adventism: Faith seatbelt use: always HPI PROLAPSE OF ANTERIOR VAGINAL WALL ([place]) Details: SUSAN SENIOR is a 89 year old who presents for vaginal bulge and pressure, been going on recently, physician at [facility] sent her to us for evaluation. she denies any bleeding or abnormal discharge. she has urinary urgency and frequnecy. She had normal vaginal deliveries, tried a pessary for several years and stopped due to recurrent UTIs, interested in surgical management this is very distressful for her and uncomfortable. Female Reproductive History Questions: metorrhagia: No, dyspareunia: No and PCB: No Menopausal Symptoms: No night sweats [place] (more content not included)... Normal [facility] Soft Tissue Neck WITH Contra ston 07-06-2024 Soft Tissue Neck WITH Contrast [facility] Imaging Services [address] [place], [place] [address] Soft Tissue Neck WITH Contrast MR#: [id number] Acct: [id number] Name: SUSAN SENIOR Rep #: [id number] : 1935 F 89 From: Israel rosenthal MD PCP: Dr. Olga Hurst MD Status: REG CLI Study: Soft Tissue Neck WITH Contrast Date of Exam: 0 07/06/24 Exam# [id number] Ordering Dr: Olga Hurst MD PROCEDURE: SOFT TISSUE NECK WITH CONTRAST REASON FOR EXAM: Arthritis OF SPINE: LARGE HIATAL HERNIA, ON XRAY SHOWING SOMETHING. Deviated trachea on radiographs. TECHNIQUE: CT of the soft tissues of the neck from the orbits to the upper mediastinum with intravenous contrast. CONTRAST: 75 cc of Isovue 370. COMPARISON: None. FINDINGS: Airway: Shift of the trachea towards the right side of the midline due to volume loss in the right upper lobe. Salivary glands: Unremarkable. Lymph nodes: No cervical lymphadenopathy. Thyroid: 7 mm hypodense nodule in the anterior aspect of the upper pole of the right lobe of the thyroid suggestive of possible cyst or adenoma. Vasculature: Carotid arteries and internal jugular veins are unremarkable. Orbits: Unremarkable at visualized levels. Paranasal sinuses and mastoids: Grossly clear at visualized levels. Lung apices: Clear. Upper mediastinum: Visualized mediastinum is unremarkable. Bones: Multilevel degenerative changes of the spine. Straightening of the normal cervical lordosis. CT/Soft Tissue Neck WITH Contrast IMPRESSION: The trachea is displaced towards the right side of the midline due to volume loss in the right upper lobe. No mass lesion is seen. One or more dose reduction techniques were used (e.g., Automated exposure control, adjustment of the mA and/or kV according to patient size, use of iterative reconstruction technique). [facility] CC: Dr. Olga Hurst MD Production Planning Manager: Signed Normal [facility] Neurology Visit Reporton Neurology Visit Report [facility] [address], [address] [place] [address] OFFICE VISIT Date of Service: 06/16/24 MR#: [id number] Acct: [id number] Name: SUSAN SENIOR Rep #: [id number] : 1935 Provider: Dr. Jb carey MD Age/Sex: 89/F Location[place] [facility] Status: Signed HPI HPI Chief Complaint: Details: Interim History: Susan returns for follow-up visit. She has a history of hypertension, hyperlipidemia and borderline diabetes mellitus. 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 In August 2021, she had viral cold symptoms manifesting with fever and nasal discharge. Following the onset of her cold symptoms, she developed right-sided head/facial paresthesias that extended fr om the scalp to the jaw and her paresthesias have persisted since that time. She described the paresthesias as a sensation of water running down her face. She did not have any facial weakness. She denied having speech difficulty or vision change. She has chronic bilateral hearing loss. She has been experiencing mild right frontal headaches that have been occurring for decades; these had occurred 1 or 2 days/month in years past. Following the onset of her right-sided facial paresthesias, she experienced almost daily right frontal mild headaches however these subsequently diminished in frequency to about 1 day/week. Her headaches are alleviated with acetaminophen. She takes gabapentin for her facial paresthesias and this has been of benefit though she does noticed a wearing off effect between doses during which time her right-sided facial paresthesias recur. She takes gabapentin 100 mg twice daily and is tolerating this well. She sees a shipyard painter apprentice for chronic low back pain. She had a lumbar L3 compression fracture that was treated with cement kyphoplasty in 2016. She has received lumbar injections about once every 3 months. On her neurological evaluation in 2021, sensory loss was noted in the feet raising concern for the possibility of a polyneuropathy. An evaluation for polyneuropathy revealed an abnormal serum free light chains. A subsequent serum protein electrophoresis, serum immunoelectrophoresis and urine immunoelectrophoresis revealed no monoclonality. 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 Since 2022, she has been experiencing numbness and tingling in the right hand. She denied having neck pain. Right upper extremity EMG/nerve conduction studies in August 2023 revealed a right carpal tunnel syndrome. A right cubital tunnel syndrome was also noted. She had right carpal tunnel surgery in January 2024 and has had reduction of her right hand numbness and tingling. Loratadine was not of benefit for sinus congestion. Physical Exam: Neuro: The patient is awake and alert and responds appropriately; speech is fluent; motor strength is right 5/5 in the first dorsal interosseous bilaterally and right abductor pollicis brevis; there are no deficits to soft touch in the right hand Neck: No bruits Heart: Regular rate and rhythm Supplemental Info CBC, CMP (09/25/2021): Hemoglobin 11.6 (low), hematocrit 35.6 (low), BUN 30 (high), BUN/creatinine ratio 39.8 (high), glucose 111 (high) Head CT (09/30/2021): FINDINGS: Normal soft tissue structures. Once again, the patient is status post prior left frontal craniotomy. There is mild cerebral atrophy with widening of the extra-axial spaces and ventricular dilatation. Normal white matter tracts of the cerebral hemispheres. Normal basal ganglia and thalami. Normal brainstem. Normal cerebellum. There is no intracranial hemorrhage. There are no findings of an acute ischemic infarction. Atherosclerotic calcification of the cavernous portions of the internal carotid arteries and vertebral arteries. Normal visualized paranasal sinuses. IMPRESSION: Chronic involutional changes of the brain. These images were reviewed on 02/17/2022. Evidence of an old left frontal craniotomy is noted. Mild diffuse age-related cerebral atrophy is noted. Mild bilateral periventricular chronic small vessel ischemic disease is noted. EKG (09/30/2021): Normal sinus rhythm. Normal EKG. Head MRI (10/14/2021): FINDINGS: There is mild cerebral atrophy with widening of the extra-axial spaces and ventricular dilatation. There are a limited number of small white matter hyperintensities, distributed throughout the deep white matter tracts of the cerebral hemispheres, consistent with mild chronic white matter ischemic changes. There is no evidence for recent intracranial ischemia or other cause of cytotoxic edema on diffusion weighted imaging (DWI). (more content not included)... Normal [facility] Chest PA and Lateralon 06-07 Chest PA and Lateral [facility] Imaging Services [address] [place], [place] [address] [phone] PA and Lateral MR#: [id number] Acct: [id number] Name: SUSAN SENIOR Rep #: [id number] : 1935 F 89 From: Giovany brown MD PCP: Dr. Olga Hurst MD Status: [facility] Study: Chest PA and Lateral Date of Exam: 06/07/24 Exam# [id number] Ordering Dr: Olga Hurst MD PROCEDURE: CHEST PA AND LATERAL REASON FOR EXAM: Left anterior chest pain since March. TECHNIQUE: Frontal and lateral views of the chest. COMPARISON: 08/02/2023. FINDINGS: The heart size is normal. Aortic calcifications. 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 No acute consolidation, pleural effusion or pneumothorax. Large hiatal hernia. The visualized osseous structures demonstrate degenerative changes. 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 Consider further evaluation to exclude possible goiter or other lesion. No acute consolidation, pleural effusion or pneumothorax. Large hiatal hernia. Reading Location: [facility] CC: Dr. Olga Hurst MD Production Planning Manager: Signed Normal [facility] Ribs Unil 2V No CXRon 2024 Ribs Unil 2V No CXR [facility] Imaging Services [address] [place] [address] Ribs Unil 2V No CXR MR#: [id number] Acct: [id number] Name: SUSAN SENIOR Rep #: [id number] : 1935 F 89 From: Giovany brown MD PCP: Dr. Olga Hurst MD Status: REG CLI Study: Ribs Unil 2V No CXR Date of Exam: 06/07/24 Exam# [id number] Ordering Dr: Olga Hurst MD PROCEDURE: RIBS UNIL 2V NO CXR REASON FOR EXAM: Left anterior chest pain. TECHNIQUE: Frontal and oblique views of the left ribs. COMPARISON: None. FINDINGS: No displaced rib fractures are identified. No suspicious lytic or blastic rib lesions. Chronic compression fracture noted of the lumbar spine status post vertebroplasty. Aortic calcifications are noted. RAD/Ribs Unil 2V No CXR IMPRESSION: NO EVIDENCE OF ACUTE RIB FRACTURE OR PNEUMOTHORAX. Reading Location: [facility] CC: Dr. Olga Hurst MD Production Planning Manager: Signed [facility] Thoracic Spine 2 Viewson Thoracic Spine 2 Views [facility] Imaging Services [address] [place] [id number] Thoracic Spine 2 Views MR#: [id number] Acct: [id number] Name: SUSAN SENIOR Rep #: [id number] : 1935 F 89 From: Afshin Ayala DO PCP: Dr. Olga Hurst MD Status: REG CLI Study: Thoracic Spine 2 Views Date of Exam: 06/07/24 Exam# [id number] Ordering Dr: Olga Hurst MD PROCEDURE: THORACIC SPINE 2 VIEWS REASON FOR EXAM: Pain. Left-sided chest wall pain. TECHNIQUE: 2 view(s) of the thoracic spine. COMPARISON: 01/13/2018. FINDINGS: Thoracic vertebral bodies maintain a normal height. There is mild levoscoliosis of the mid to upper thoracic spine. Multilevel degenerative changes are present with disc space narrowing and endplate spurring greatest involving the mid to lower thoracic spine. No acute fracture or subluxation is present. Bilateral pedicles are symmetric. Large hiatal hernia is present. RAD/Thoracic Spine 2 Views IMPRESSION: 1. No acute osseous abnormality. 2. Multilevel degenerative changes. 3. Mild levoscoliosis. [facility] CC: Dr. Olga Hurst MD Production Planning Manager: Signed Normal [facility] Breast Limited Unilateralon 05-16-2024 Breast Limited Unilateral [facility] Imaging Services [address] [place], [place] [address] Breast Limited Unilateral MR#: [id number] Acct: [id number] Name: SUSAN SENIOR Rep #: [id number] : 1935 F 89 From: Israel rosenthal MD PCP: Dr. Olga Hurst MD Status: [facility] Study: Breast Limited Unilateral Date of Exam: Exam# [id number] Ordering Dr: [place] [id number] STUDY: ULTRASOUND BREAST - LEFT REASON FOR EXAM: Female, 89 years old. Left breast pain. TECHNIQUE: Axial and longitudinal images of the LEFT breast were performed with a high resolution ultrasound transducer. # OF IMAGES: [id number] COMPARISON: Comparison is made with prior outside mammogram dated April 14, 2024. FINDINGS: LEFT Breast: The upper lateral aspect of the right breast was examined with ultrasound. 2 benign-appearing lymph nodes are seen in the left axilla. The larger lymph node measures 2.1 cm x 1.8 cm x 1.2 cm. There is also evidence of a 3 mm x 3 mm x 2 mm cyst at the 12:00 position of the breast at 2 cm from the nipple. There is also evidence of a 2 mm x 2 mm x 2 mm cyst at the 2:00 position breast at 5 cm from nipple. Dilated retroareolar ducts. US/Breast Limited Unilateral IMPRESSION: Small cysts are seen in the upper outer quadrant left breast as well as left axillary lymph nodes. Dilated ducts. ASSESSMENT CATEGORY: BIRADS Category 2: Benign. A letter regarding these results will be sent to the patient by the facility within 30 days. Electronically Signed: Israel Denton MD at 12:24 EST , CC: Dr. Olga Hurst MD Production Planning Manager: Signed [facility] ALEKSANDRA SCREENING W TOMOon 04-14 ALEKSANDRA SCREENING W ANTONIETA * * *Final Report* * * DATE OF EXAM: Apr 14 2024 9:37AM [id number] - ALEKSANDRA SCREENING W ANTONIETA / PROCEDURE REASON: Z12.39 * * * * Physician Interpretation * * * * RESULT: [place] [address] #[id number] - ALEKSANDRA SCREENING W ANTONIETA HISTORY: Patient is 89 years old and is seen for screening and area of clinical concern in the left breast. Patient states no personal history of breast cancer. Patient states no personal history of other cancers. Focal pain L breast, no palpable abnormality. COMPARISON STUDIES: The present examination has been compared to prior imaging studies dated 01/10/2022 (mammogram) and 2023 (mammogram). MAMMOGRAM TECHNIQUE: The study was acquired using full field digital technology and interpreted from soft copy. Digital Breast Tomosynthesis (DBT) images were obtained and used to assist in the interpretation of this examination. Computer-aided detection was utilized by the radiologist in the interpretation of this examination. MAMMOGRAM FINDINGS: There are scattered areas of fibroglandular density. There are no suspicious mammographic findings to correspond with the focal pain in the upper outer quadrant of the left breast, middle depth. No suspicious masses, calcifications or other abnormalities are seen in the right breast. IMPRESSION: Area in the left breast requires additional evaluation. Diagnostic ultrasound is recommended. BI-RADS Category 0: Incomplete: Needs Additional Imaging Evaluation Interpreting Radiologist: Tori Dyer M.D. Electronically signed on: 04/15/2024 Production Planning Manager: CHARMAINE Transcribe Date/Time: Apr 14 2024 9:24A Dictated by: TORI DYER MD This examination was interpreted and the report reviewed and electronically signed by: TORI DYER MD on Apr 15 2024 9:04AM EST [id number] Normal [facility] Orthopedic Visit Reporton Orthopedic Visit Report [facility] [address] [place] [address] [address] [place] [address] OFFICE VISIT Date of Service: 04/14/24 MR#: [id number] Acct: [id number] Name: SUSAN SENIOR Rep #: [id number] : 1935 Provider: Dr. Pavel keith MD Age/Sex: 89/F [place] [facility] [place] Status: Signed Intake Vital Signs 02/17/24 07:15 Height 5 ft 2 in Intake Visit Reasons: RIGHT WRIST Chief Complaint: right wrist Is patient in pain?: No Allergies amoxicillin (Amoxicillin) Allergy (Severe, Verified 04/14/24 08:27) Swelling cyclobenzaprine HCl (From Flexeril) Allergy (Severe, Verified 04/14/24 08:27) Swelling diclofenac sodium (From Voltaren) Allergy (Severe, Verified 04/14/24 08:27) Swelling dicyclomine Allergy (Severe, Verified 04/14/24 08:27) Swelling ketoprofen (From Oruvail) Allergy (Severe, Verified 04/14/24 08:27) Swelling sulfabenzamide Allergy (Severe, Verified 04/14/24 08:27) Anaphylaxis tramadol Allergy (Unknown, Verified 04/14/24 08:27) Unknown hydroxychloroquine (From Plaquenil) Allergy (Verified 04/14/24 08:27) Hives hydroxyzine HCl (From Atarax) Allergy (Verified 04/14/24 08:27) Swelling prednisone Allergy (Verified 04/14/24 08:27) Hives pseudoephedrine HCl (From Sudafed) Allergy (Verified 04/14/24 08:27) Other cephalexin Adverse Reaction (Severe, Verified 04/14/24 08:27) Rash clindamycin Adverse Reaction (Severe, Verified 04/14/24 08:27) Hives codeine Adverse Reaction (Severe, Verified 04/14/24 08:27) Upset Stomach Medications ???Medication ???Instructions ???Recorded ???Confirmed ???Type calcium 315 mg (as 1 tab PO BID Supplement Kettle Operator Head 09/16/22 04/14/24 History citrate)-vitamin D3 6.25 mcg (250 unit) tablet albuterol sulfate 90 mcg/actuation 2 puff inhalation Q4H PRN PRN 08/02/23 04/14/24 Rx aerosol inhaler (Ventolin HFA) Wheezing 30 days #6.7 grams lisinopril 10 mg tablet 10 mg PO BID blood pressure #180 10/05/23 04/14/24 Rx tabs acetaminophen 650 mg 650 mg PO Q8H 10/27/23 04/14/24 History tablet,extended release (Tylenol Arthritis Pain) atorvastatin 20 mg tablet 20 mg PO DAILY 10/27/23 04/14/24 History ferrous sulfate 325 mg (65 mg 325 mg PO QDAY 10/27/23 04/14/24 History iron) tablet (FeroSul) gabapentin 100 mg capsule 100 mg PO BID #60 caps 12/22/23 04/14/24 Rx Have you fallen in the past year?: No PFSH Medical History Wears glasses Wears hearing aid Wears dentures Post-menopausal Ambulates with cane Walker as ambulation aid Low iron High cholesterol Restless legs Heartburn Non-smoker Leg cramps History of echocardiogram Cardiology follow-up encounter COVID-19 Rheumatoid arthritis Pure hypercholesterolemia Essential hypertension Incontinence Back pain Limb weakness Shoulder pain Hemorrhoids Arthritis Syncope Brain tumor Chest pressure Surgical History History of back surgery History of breast biopsy History of appendectomy History of knee replacement procedure of left knee History of brain surgery Family History Mother Heart disease Father Heart disease Other Cancer Social History Smoking Status: Never smoker second hand exposure: No alcohol intake: never substance use type: does not use what type of physical activity do you participate in: none wolf/adventism: Faith seatbelt use: always HPI RIGHT WRIST Details: This documentation accurately reflects the service provided and the decisions made by me, Dr. Pavel Cartagena MD 04/14/24 0817. Part of today???s visit was documented by [ ], acting as scribe. SUSAN SENIOR is a 89 year old F here today for 6 weeks following up right endoscopic carpal tunnel release. Patient doing well the numbness is improving the pain is settling down patient was able to wrap some gifts for their grandchildren. Coding Level of Care Code Global Post Op Diagnoses Carpal tunnel syndrome, right G56.01 Assessment and Plan Assessment and Plan (1) Carpal tunnel syndrome, right: Status: Acute Plan: 89 year old F here today for 6 weeks following up right endoscopic carpal tunnel release. Patient doing well numbness is improving they do have wasting of the thenar eminence this may not get fully better otherwise the patient can return to all activities and follow-up as needed they understood no further questions or concerns. Clinical Quality Measures Falls Risk Screening/Assistive Devices Have you fallen in the past year?: No Ortho Exam General General: Yes no acute distress Neurologic: Yes alert and Yes oriented x3 Psychologic: Yes reasonable and appro (more content not included)... Normal [facility] Orthopedic Visit Reporton Orthopedic Visit Report [facility] [address] [place] [address] OFFICE VISIT Date of Service: 03/03/24 MR#: [id number] Acct: [id number] Name: SUSAN SENIOR Rep #: [id number] : 1935 Provider: Dr. Pavel keith MD Age/Sex: 89/F [place] [facility] [place] Status: Signed Intake Vital Signs 12/22/23 08:27 02/17/24 07:15 Height 5 ft 2 in 5 ft 2 in Intake Visit Reasons: right wrist Chief Complaint: right wrist Is patient in pain?: Yes Pain scale (1-10): 4 Allergies amoxicillin (Amoxicillin) Allergy (Severe, Verified 03/03/24 08:42) Swelling cyclobenzaprine HCl (From Flexeril) Allergy (Severe, Verified 03/03/24 08:42) Swelling diclofenac sodium (From Voltaren) Allergy (Severe, Verified 03/03/24 08:42) Swelling dicyclomine Allergy (Severe, Verified 03/03/24 08:42) Swelling ketoprofen (From Oruvail) Allergy (Severe, Verified 03/03/24 08:42) Swelling sulfabenzamide Allergy (Severe, Verified 03/03/24 08:42) Anaphylaxis tramadol Allergy (Unknown, Verified 03/03/24 08:42) Unknown hydroxychloroquine (From Plaquenil) Allergy (Verified 03/03/24 08:42) Hives hydroxyzine HCl (From Atarax) Allergy (Verified 03/03/24 08:42) Swelling prednisone Allergy (Verified 03/03/24 08:42) Hives pseudoephedrine HCl (From Sudafed) Allergy (Verified 03/03/24 08:42) Other cephalexin Adverse Reaction (Severe, Verified 03/03/24 08:42) Rash clindamycin Adverse Reaction (Severe, Verified 03/03/24 08:42) Hives codeine Adverse Reaction (Severe, Verified 03/03/24 08:42) Upset Stomach Medications ???Medication ???Instructions ???Recorded ???Confirmed ???Type calcium 315 mg (as 1 tab PO BID Supplement Kettle Operator Head 09/16/22 03/03/24 History citrate)-vitamin D3 6.25 mcg (250 unit) tablet albuterol sulfate 90 mcg/actuation 2 puff inhalation Q4H PRN PRN 08/02/23 03/03/24 Rx aerosol inhaler (Ventolin HFA) Wheezing 30 days #6.7 grams lisinopril 10 mg tablet 10 mg PO BID blood pressure #180 10/05/23 03/03/24 Rx tabs acetaminophen 650 mg 650 mg PO Q8H 10/27/23 03/03/24 History tablet,extended release (Tylenol Arthritis Pain) atorvastatin 20 mg tablet 20 mg PO DAILY 10/27/23 03/03/24 History ferrous sulfate 325 mg (65 mg 325 mg PO QDAY 10/27/23 03/03/24 History iron) tablet (FeroSul) gabapentin 100 mg capsule 100 mg PO BID #60 caps 12/22/23 03/03/24 Rx Have you fallen in the past year?: Yes PFSH Medical History Wears glasses Wears hearing aid Wears dentures Post-menopausal Ambulates with cane Walker as ambulation aid Low iron High cholesterol Restless legs Heartburn Non-smoker Leg cramps History of echocardiogram Cardiology follow-up encounter COVID-19 Rheumatoid arthritis Pure hypercholesterolemia Essential hypertension Incontinence Back pain Limb weakness Shoulder pain Hemorrhoids Arthritis Syncope Brain tumor Chest pressure Surgical History History of back surgery History of breast biopsy History of appendectomy History of knee replacement procedure of left knee History of brain surgery Family History Mother Heart disease Father Heart disease Other Cancer Social History Smoking Status: Never smoker second hand exposure: No alcohol intake: never substance use type: does not use what type of physical activity do you participate in: none owlf/adventism: Faith seatbelt use: always HPI right wrist Details: This documentation accurately reflects the service provided and the decisions made by me, Dr. Pavel Cartagena MD 03/03/24 0839. Part of today???s visit was documented by [ ], acting as scribe. SUSAN SENIOR is a 89 year old F here today for 2 weeks following up right endoscopic carpal tunnel release. The patient is doing well. Bumped it this morning little bit sore in the palm. Incision is healing well. The patient keeps it covered up overnight. Still little bit of numbness in the middle and ring finger but otherwise the hand feels fine little bit of stiffness with gripping and lifting. Ortho Exam General General: Yes no acute distress Neurologic: Yes alert and Yes oriented x3 Psychologic: Yes reasonable and appropriate Right Wrist/Hand Skin/Wound: Yes CDI, Yes healing, No Swelling, No Ecchymosis, Yes nail intact and Yes capillary refill normal Right Wrist: Yes ROM-Extension 0-60, ROM-Flexion 0-80, ROM-Pronation 0-80 and ROM-Supination 0-90 Motor: EPL: 4, FDP-2: 4, 1st Dorsal Interosseous: 4 and APB: 4 Sensation: Radial: I, Ulnar: I and Median: I WRIST: incision clean and dry Left Wrist/Hand Skin/Wound: No Swelling and No (more content not included)... Normal [facility] Orthopedic Visit Reporton Orthopedic Visit Report [facility] [address] [place] [address] OFFICE VISIT Date of Service: 02/19/24 MR#: [id number] Acct: [id number] Name: SUSAN SENIOR Rep #: [id number] : 1935 Provider: Dr. Pavel keith MD Age/Sex: 89/F [place] [facility] [place] Status: Signed Intake Vital Signs 12/22/23 08:27 02/17/24 07:15 Height 5 ft 2 in 5 ft 2 in Intake Visit Reasons: right wrist Chief Complaint: right wrist Is patient in pain?: Yes (right wrist) Pain scale (1-10): 6 Allergies amoxicillin (Amoxicillin) Allergy (Severe, Verified 02/19/24 08:46) Swelling cyclobenzaprine HCl (From Flexeril) Allergy (Severe, Verified 02/19/24 08:46) Swelling diclofenac sodium (From Voltaren) Allergy (Severe, Verified 02/19/24 08:46) Swelling dicyclomine Allergy (Severe, Verified 02/19/24 08:46) Swelling ketoprofen (From Oruvail) Allergy (Severe, Verified 02/19/24 08:46) Swelling sulfabenzamide Allergy (Severe, Verified 02/19/24 08:46) Anaphylaxis tramadol Allergy (Unknown, Verified 02/19/24 08:46) Unknown hydroxychloroquine (From Plaquenil) Allergy (Verified 02/19/24 08:46) Hives hydroxyzine HCl (From Atarax) Allergy (Verified 02/19/24 08:46) Swelling prednisone Allergy (Verified 02/19/24 08:46) Hives pseudoephedrine HCl (From Sudafed) Allergy (Verified 02/19/24 08:46) Other cephalexin Adverse Reaction (Severe, Verified 02/19/24 08:46) Rash clindamycin Adverse Reaction (Severe, Verified 02/19/24 08:46) Hives codeine Adverse Reaction (Severe, Verified 02/19/24 08:46) Upset Stomach Medications ???Medication ???Instructions ???Recorded ???Confirmed ???Type calcium 315 mg (as 1 tab PO BID Supplement Kettle Operator Head 09/16/22 02/19/24 History citrate)-vitamin D3 6.25 mcg (250 unit) tablet albuterol sulfate 90 mcg/actuation 2 puff inhalation Q4H PRN PRN 08/02/23 02/19/24 Rx aerosol inhaler (Ventolin HFA) Wheezing 30 days #6.7 grams lisinopril 10 mg tablet 10 mg PO BID blood pressure #180 10/05/23 02/19/24 Rx tabs acetaminophen 650 mg 650 mg PO Q8H 10/27/23 02/19/24 History tablet,extended release (Tylenol Arthritis Pain) atorvastatin 20 mg tablet 20 mg PO DAILY 10/27/23 02/19/24 History ferrous sulfate 325 mg (65 mg 325 mg PO QDAY 10/27/23 02/19/24 History iron) tablet (FeroSul) gabapentin 100 mg capsule 100 mg PO BID #60 caps 12/22/23 02/19/24 Rx Have you fallen in the past year?: Yes PFSH Medical History Wears glasses Wears hearing aid Wears dentures Post-menopausal Ambulates with cane Walker as ambulation aid Low iron High cholesterol Restless legs Heartburn Non-smoker Leg cramps History of echocardiogram Cardiology follow-up encounter COVID-19 Rheumatoid arthritis Pure hypercholesterolemia Essential hypertension Incontinence Back pain Limb weakness Shoulder pain Hemorrhoids Arthritis Syncope Brain tumor Chest pressure Surgical History History of back surgery History of breast biopsy History of appendectomy History of knee replacement procedure of left knee History of brain surgery Family History Mother Heart disease Father Heart disease Other Cancer Social History Smoking Status: Never smoker second hand exposure: No alcohol intake: never substance use type: does not use what type of physical activity do you participate in: none wolf/adventism: Faith seatbelt use: always HPI right wrist Details: This documentation accurately reflects the service provided and the decisions made by me, Dr. Pavel Cartagena MD 02/19/24 0844. Part of today???s visit was documented by [ ], acting as scribe. SUSAN SENIOR is a 89 year old F here today for POD 2 right endoscopic carpal tunnel release. doing well. mild pain. no concerns. feeling is better. Ortho Exam General General: Yes no acute distress Neurologic: Yes alert and Yes oriented x3 Psychologic: Yes reasonable and appropriate Right Wrist/Hand Skin/Wound: Yes CDI, Yes healing, Yes wound(s) cleaned with betadine/alcohol and sterile water, Yes wound(s) manually debrided then Saline/Betadine/, Yes Swelling, Yes Ecchymosis, Yes nail intact and Yes capillary refill normal Right Wrist: Yes ROM-Extension 0-60, ROM-Flexion 0-80, ROM-Pronation 0-80 and ROM-Supination 0-90 Motor: EPL: 4, FDP-2: 4, 1st Dorsal Interosseous: 4 and APB: 4 Sensation: Radial: I, Ulnar: I and Median: I Left Wrist/Hand Skin/Wound: Yes Swelling and Yes Ecchymosis Coding Level of Care Code Global Post Op Diagnoses Carpal tunnel syndrome, right G56.01 Assessment and Plan Assessment and Plan (1) Carpal renny (more content not included)... Normal [facility] Discharge Instructionon 01-26 Discharge Instruction [facility] Medical Records Department [address] [place] [address] Instructions for Home/Discharge Instructions 02/17/24 0905 MR#: [id number] Acct: [id number] Name: SUSAN SENIOR Rep #: [id number] : 1935 89 From: Pavel Cartagena MD PCP: Dr. Olga Hurst MD Status:REG [facility] Discharge Instructions Diet Discharge Diet: No restrictions Activity Discharge Activity: Return to Normal Activity Ice area for (Minutes): 10 Lifting Restrictions: no lifting over 1 pound, ok for gentle hand wrist elbow rom Keep extremity elevated above heart level: Operative Extremity Dressing / Incision Call your doctor if your incision/area has: Continuous Slow Oozing, Sudden Increased Bleeding, Increased Pain/ Swelling, Increased Redness, Foul Smelling Discharge and Swelling at the incision site Call your doctor if you observe: Fever of 101 or Higher, Coldness, Increased Pain and Numbness or Tingling Change Dressing in: leave in place till F/U Cleanse incision/area with: Do not get Incision Wet Follow Up Care Please Follow Up With: Pavel Cartagena MD When: 2 days Test Results: Test results from this visit will be discussed in further detail at your follow-up appointment, if applicable. Discharge Plan Admission Attending Provider: Pavel Cartagena Primary Care Provider: Olga Hurst Instructions Print Language: Czech Discharge Orders/Prescriptions Prescriptions: No Action atorvastatin 20 mg tablet 20 mg PO DAILY ferrous sulfate [FeroSul] 325 mg (65 mg iron) tablet 325 mg PO QDAY acetaminophen [Tylenol Arthritis Pain] 650 mg tablet extended release 650 mg PO Q8H gabapentin 100 mg capsule 100 mg PO BID Qty: 60 6RF calcium citrate-vitamin D3 315 mg-6.25 mcg (250 unit) tablet 1 tab PO BID Patient Comments: vitamin albuterol sulfate [Ventolin HFA] 90 mcg/actuation HFA aerosol inhaler 2 puff inhalation Q4H PRN PRN (Reason: Wheezing) 30 Days Qty: 6.7 0RF lisinopril 10 mg tablet 10 mg PO BID Qty: 180 3RF Referrals / Follow Up: Olga Hurst MD [Primary Care Provider] - Pavel Cartagena MD [Med Staff - Active Staff] - Disposition Disposition (needs filled in before D/C Order can be placed): Home, Self Care 02/17/24907 Pavel Cartagena MD CC: Dr. Olga Hurst MD Signed [facility] MR/POSTOP.Erick 02-17-2024 MR/POSTOP.[facility] Medical Records Department [address] [place] [address] Anesthesia Postop Eval I 02/17/24 09 MR#: [id number] Acct: [id number] Name: SUSAN SENIOR Rep #: [id number] : 1935 89 From: Ledy Felix PCP: Dr. Olga Hurst MD Status:REG SDC Y Race: C Location: [place] [address] Anesthesia: Postop Eval I Current Vital Signs Temperature: 97 F Pulse Rate: 75 Blood Pressure: 103/49 Respiratory Rate: 18 Pulse Ox: 93 Assessment Airway patent: Yes Spontaneous unlabored respirations: Yes nausea: No Vomiting: No Anesthesia Complication: No Fluid Hydration Crystalloid volume administer (ml): 10 Total IV fluid infused: 10 Progress Note Anesthesia document: Postop Eval 1 completed: Yes 02/17/24905 Date Ledy Vidalignyamini Signature: Date CC: Signed [facility] MR/[id number] 02-17-2024 /[facility] Medical Records Department [address] [place] [address] Anesthesia Postop Eval II 02/17/24 1345 MR#: [id number] Acct: [id number] Name: SUSAN SENIOR Rep #: [id number] : 1935 89 From: Layton Metzger MD PCP: Dr. Olga Hurst MD Status:[facility] Y Race: C Location: [facility] Anesthesia Postop Eval I Sum Postop Eval Completion status Anesthesia document: Postop Eval 1 completed: Yes Anesthesia Postop Eval I Summary Anesthesia Postop Eval I Summary: Anesthesia Postop Eval I: Assessment Summary Airway patent Yes 02/17/24 09:05 SWING RIDE OPERATOR.CSIR Spontaneous unlabored Yes 02/17/24 09:05 SWING RIDE OPERATOR.CSIR respirations Mental status nausea No 02/17/24 09:05 SWING RIDE OPERATOR.CSIR Vomiting No 02/17/24 09:05 SWING RIDE OPERATOR.CSIR Anesthesia Postop Eval I: Fluid Summary Crystalloid volume administer 10 02/17/24 09:05 SWING RIDE OPERATOR.CSIR (ml) Colloids volume administered ( ml) Blood Product volume administered (ml) Total IV fluid infused 10 02/17/24 09:05 SWING RIDE OPERATOR.CSIR Anesthesia Postop Eval I: Summary Notes Anesthesia Complication No 02/17/24 09:05 SWING RIDE OPERATOR.CSIR Anesthesia Complication Comment: Post-operative progress note Anesthesia: Postop Eval II Evaluation Mental status: Awake and Calm Pain Level: 0 nausea: No Vomiting: No 02/17/24 1346 Date Layton Metzger MD Cosigner Signature: Date CC: Signed Normal [facility] Operative Reporton 4 Operative Report [facility] Medical Records Department [address] [place] [address] Operative Report 02/17/24902 MR#: [id number] Acct: [id number] Name: SUSAN SENIOR Rep #: [id number] : 1935 89 From: Pavel Cartagena MD PCP: Dr. Olga Hurst MD Status:[facility] Location: [place] [address] Problems Associated Problem List Diagnoses (1) Carpal tunnel syndrome, right: Procedures Musculoskeletal 20xxx-29xxx: Other Procedure See Report Operative Report (Standard) Operative Information Surgery/Procedure Performed:: right endoscopic carpal tunnel release Surgeon: Pavel Cartagena RN Documented Start/Stop Times: Operation Date: 02/17/24 08:40 Case Time Into Pre-Op 02/17/24 07:05 Out of Pre-Op 02/17/24 08:17 Anesthesia Start 02/17/24 08:22 Into Room 02/17/24 08:22 Procedure Start 02/17/24 08:45 Procedure End 02/17/24 08:58 Date of Procedure: 02/17/24 Procedure Start Time: 08:45 Procedure Stop Time: 08:58 Pre-Operative Diagnosis: right carpal tunnel syndrome Post-Operative Diagnosis: same Select all DRAINS/GRAFTS/IMPLANTS that apply:: None Type of Anesthesia: Local MAC Estimated Blood Loss: 10 Specimen collected: No Description of surgery: Patient brought to the operating room theater. Placed upon on the table. MAC anesthesia induced by the anesthetic team. Patient placed supine on the table all bony prominences padded. SCDs on the legs. Bed turned 90 degrees. Hand table used. Tourniquet applied properly padded to the upper extremity. Upper extremity prepped and draped in the usual sterile fashion with chlorhexidine-based prep solution allowing over 3 minutes drying time prior to draping. Preoperative timeout performed to confirm the site patient and the surgery. Began by elevating the limb and inflated the tourniquet to 250 mmHg. I used the Arthex center line kirsten scope endoscopic carpal tunnel kit / technique. I made a transverse 2 cm incision in line with the??? transverse wrist crease.??? This was in line with the fourth digit.??? I carried the dissection down through skin and subcutaneous tissue achieved meticulous hemostasis. Just ulnar to palmaris tendon.??? I incised the antebrachial fascia.??? I passed sequential dilators into the carpal tunnel along the radial border of the Guyon's canal aiming for the fourth digit with the hand in extension.??? I used a synovial elevator to identify the transverse fibers of the transverse carpal tunnel ligament.??? Passed the scope into the carpal tunnel. Once I had identified the full proximal and distal extent of the ligament I fully released the ligament under direct visualization by deploying the blade and slowly withdrawing the scope made sequential passes until I no longer felt tension as well as the entire extent of the ligament was released under direct visualization.??? Sounded the tunnel with cifuentes tenotomy scissors, complete release, no bands. Arthroscope light was more visible through the skin. Pictures taken and saved. Wounds thoroughly irrigated.??? 4cc 0.25% bupivicaine for local anesthesia. Tourniquet let down prior to end of the case and meticulous hemostasis achieved.??? Thorough irrigation.? Incisions closed with 3-0 vicryl and 3-0 moncryl for the skin.???Then adaptic 4x4 gauze and laura. Patient woken up,??? transferred off the operating room table and taken to postanesthetic care unit in stable condition. All sponge needle instrument counts were correct no complications.???Plan for the patient to be discharged home according to day surgery criteria when they are comfortable. Follow-up in the office in 2 days time. Gentle ROM hand and elbow no heavy lifting. cpt 78840 Surgical Findings: right carpal tunnel syndrome Nurse Ob hard metals hand engraver: No Complications Complications: No Admit VTE Documentation VTE Present on Admission: No VTE Mechan Device Prophylaxis: SCD's VTE Pharm Prophylaxis ordered?: No Reason prophylaxis not ordered:: Treatment Not Indicated 02/17/24 0905 Cosigner Signature (if applicable): CC: Dr. Olga Hurst MD; Dr. Pavel Cartagena MD Signed [facility] Sacrum-Coccyx min 2 Viewson 02-10-2024 Sacrum-Coccyx min 2 Views [facility] Imaging Services [address] [place] [id number] Sacrum-Coccyx min 2 Views MR#: [id number] Acct: [id number] Name: SUSAN SENIOR Rep #: [id number] : 1935 F 89 From: Laya whitney MD PCP: Dr. Olga Hurst MD Status: REG CLI Study: Sacrum-Coccyx min 2 Views Date of Exam: Exam# [id number] Ordering [place]: [place] [id number] INDICATION: Sacrococcygeal disorders, not elsewhere classified EXAMINATION/TECHNIQUE: X-RAY - XR Sacrum/Coccyx Min 2 Views COMPARISON: 12/04/2023. FINDINGS: SACRUM/COCCYX: No displaced fracture, destructive or sclerotic lesions. Note that overlapping bowel shadows may however obscure fine detail in the frontal view. SACRO-ILIAC JOINTS: The articular structures are unremarkable. SOFT TISSUES: No soft tissue swelling or gas. RAD/Sacrum-Coccyx min 2 Views IMPRESSION: Unremarkable sacro-coccygeal spine. Electronically Signed: Laya Alegria MD at 19:25 EDT , CC: Dr. Olga Hurst MD; Dr. Leonid Jones MD Production Planning Manager: Signed Normal [facility] Orthopedic Visit Reporton Orthopedic Visit Report [facility] [address] [place] [address] [address] [place] [address] OFFICE VISIT Date of Service: 01/18/24 MR#: [id number] Acct: [id number] Name: SUSAN SENIOR Rep #: [id number] : 1935 Provider: Dr. Pavel keith MD Age/Sex: 88/F [place] [facility] [place] Status: Signed Intake Vital Signs 12/22/23 08:27 Height 5 ft 2 in Weight: 166 lb 10 oz BMI 30.4 BP 120/60 Blood Pressure Location Rt brachial Position Sitting Respiration 17 Pulse 67 Pulse Source Monitor Temp 98.2 F Temp Source Temporal Pulse Oximetry (%) 98 Oxygen Delivery Method room air Intake Visit Reasons: RIGHT HAND Chief Complaint: carpal tunnel Allergies amoxicillin (Amoxicillin) Allergy (Severe, Verified 01/18/24 13:19) Swelling cyclobenzaprine HCl (From Flexeril) Allergy (Severe, Verified 01/18/24 13:19) Swelling diclofenac sodium (From Voltaren) Allergy (Severe, Verified 01/18/24 13:19) Swelling dicyclomine Allergy (Severe, Verified 01/18/24 13:19) Swelling ketoprofen (From Oruvail) Allergy (Severe, Verified 01/18/24 13:19) Swelling sulfabenzamide Allergy (Severe, Verified 01/18/24 13:19) Anaphylaxis tramadol Allergy (Unknown, Verified 01/18/24 13:19) Unknown hydroxychloroquine (From Plaquenil) Allergy (Verified 01/18/24 13:21) Hives hydroxyzine HCl (From Atarax) Allergy (Verified 01/18/24 13:19) Swelling prednisone Allergy (Verified 01/18/24 13:19) Hives pseudoephedrine HCl (From Sudafed) Allergy (Verified 01/18/24 13:19) Other cephalexin Adverse Reaction (Severe, Verified 01/18/24 13:19) Rash clindamycin Adverse Reaction (Severe, Verified 01/18/24 13:19) Hives codeine Adverse Reaction (Severe, Verified 01/18/24 13:19) Upset Stomach Medications ???Medication ???Instructions ???Recorded ???Confirmed ???Type methotrexate sodium 2.5 mg tablet 25 mg PO QWEEK 07/12/21 01/18/24 History calcium citrate 315 mg 2 tab PO BID Supplement Kettle Operator Head 09/16/22 01/18/24 History calcium-vitamin D3 6.25 mcg (250 unit) tablet folic acid 1 mg tablet 2 mg PO DAILY 09/16/22 01/18/24 History leucovorin calcium 15 mg tablet 15 mg PO QWEEK 09/16/22 01/18/24 History loratadine 10 mg tablet 10 mg PO DAILY PRN nasal/sinus 02/04/23 01/18/24 Rx congestion/drainage #10 tabs albuterol sulfate 90 mcg/actuation 2 puff inhalation Q4H PRN PRN 08/02/23 01/18/24 Rx aerosol inhaler (Ventolin HFA) Wheezing 30 days #6.7 grams lisinopril 10 mg tablet 10 mg PO BID blood pressure #180 10/05/23 01/18/24 Rx tabs acetaminophen 650 mg 650 mg PO Q8H 10/27/23 01/18/24 History tablet,extended release (Tylenol Arthritis Pain) atorvastatin 20 mg tablet 20 mg PO DAILY 10/27/23 01/18/24 History famotidine 20 mg tablet 20 mg PO DAILY PRN 10/27/23 01/18/24 History (Zantac-360 (famotidine)) ferrous sulfate 325 mg (65 mg 325 mg PO QDAY 10/27/23 01/18/24 History iron) tablet (FeroSul) gabapentin 100 mg capsule 100 mg PO BID #60 caps 12/22/23 01/18/24 Rx Have you fallen in the past year?: Yes (September) [facility] Medical History COVID-19 Rheumatoid arthritis Pure hypercholesterolemia Essential hypertension Incontinence Back pain Limb weakness Shoulder pain Hemorrhoids Arthritis Syncope Brain tumor Chest pressure Surgical History History of back surgery History of breast biopsy History of appendectomy History of knee replacement procedure of left knee History of brain surgery Family History Mother Heart disease Father Heart disease Other Cancer Social History Smoking Status: Never smoker second hand exposure: No alcohol intake: never substance use type: does not use what type of physical activity do you participate in: none wolf/adventism: Faith seatbelt use: always HPI RIGHT HAND Details: This documentation accurately reflects the service provided and the decisions made by me, Dr. Pavel Cartagena MD 01/18/24 3244. Part of today???s visit was documented by [ ], acting as scribe. SUSAN SENIOR is a 88 year old F here today for right carpal tunnel syndrome. whole hand, mostly the thumb index and middle. for a year. getting worse. RHD. positive flick sign. wears a band for a year. wakes up with symptoms. no cigs, no blood thinner, no diabetes. no symptoms from elbow. Supplemental Info [facility] Pulmonary Services/Neurology [address] [facility] [address] [place] [address] MR#: [id number] Acct: [id number] Name: SUSAN SENIOR Rep #: [id number] : 1935 88 From: Danilo (more content not included)... Normal [facility] CBC W/Diff, Automatedon 08-2 Absolute Lymph 1.71 X10 3/uL Normal 0.83-4.51 [facility] Comment on above: Performed By: #### L 500.4050, L100.0100 ####[facility] [address] [facility] [place], [address] Absolute Neut 3.0 X10 3/uL Normal 2.0-7.7 [facility] Comment on above: Performed By: #### L 500.4050, L100.0100 ####[facility] [address], [address] Basophils/100 WBC (Bld) 1.2 % High 0-1 [facility] Comment on above: Performed By: #### L 500.4050, L100.0100 ####[facility] [address] [place], [address] Eosinophils/100 WBC (Bld) 2.5 % Normal 0-5 [facility] Comment on above: Performed By: #### L 500.4050, L100.0100 ####[facility] [address] [place], [address] Erythrocyte distribution width (RBC) [Ratio] 13.7 % Normal 11.6-14.6 [facility] Comment on above: Performed By: #### L 500.4050, L100.0100 ####[facility] [address] [place], [address] Hematocrit (Bld) [Volume fraction] 40.2 % Normal 37-47 [facility] Comment on above: Performed By: #### L 500.4050, L100.0100 ####[facility] [address] [place], [address] Hemoglobin (Bld) [Mass/Vol] 13.0 g/dL Normal 12.0-15.0 [facility] Comment on above: Performed By: #### L 500.4050, L100.0100 ####[facility] [address] [place], [address] IG% 0.400 Normal 0.0-0.9 [facility] Comment on above: Result Comment: IG% - Immature Granulocytes (promyelocytes, myelocytes and metamyelocytes) > 1% indicates that a LEFT SHIFT is Present. Performed By: #### L 500.4050, L100.0100 ####[facility] [address] [place], [address] Lymphocytes/100 WBC (Bld) 30.3 % Normal 19-41 [facility] Comment on above: Performed By: #### L 500.4050, L100.0100 ####[facility] [address] [place], [address] MCH (RBC) [Entitic mass] 30.2 pg Normal 27.0-32.0 [facility] Comment on above: Performed By: #### L 500.4050, L100.0100 ####[facility] [address] [place], [address] MCHC (RBC) [Mass/Vol] 32.3 g/dL Normal 32-36 [facility] Comment on above: Performed By: #### L 500.4050, L100.0100 ####[facility] [address] [place], [address] MCV (RBC) [Entitic vol] 93.3 fL Normal 81-99 [facility] Comment on above: Performed By: #### L 500.4050, L100.0100 ####[facility] [address] [place], [address] Monocytes/100 WBC (Bld) 12.8 % High 0-10 [facility] Comment on above: Performed By: #### L 500.4050, L100.0100 ####[facility] [address] [place], [address] Neutrophils/100 WBC (Bld) 52.8 % Normal 47-70 [facility] Comment on above: Performed By: #### L 500.4050, L100.0100 ####[facility] [address] [place], [address] Nucleated RBC (Bld) [#/Vol] 0 10*3/uL Normal 0-5 [facility] Comment on above: Performed By: #### L 500.4050, L100.0100 ####[facility] [address] [place], [address] Platelet mean volume (Bld) [Entitic vol] 11.7 fL Normal 6.2-12.0 [facility] Comment on above: Performed By: #### L 500.4050, L100.0100 ####[facility] [address] [place], [address] Platelets (Bld) [#/Vol] 142 10*3/uL Low 150-450 [facility] Comment on above: Performed By: #### L 500.4050, L100.0100 ####[facility] [address] [place], [address] RBC (Bld) [#/Vol] 4.31 10*6/uL Normal 4.2-5.4 [facility] Comment on above: Performed By: #### L 500.4050, L100.0100 ####[facility] [address] [place], [address] RDW SD 45.4 fl High 35.1-43.9 [facility] Comment on above: Performed By: #### L 500.4050, L100.0100 ####[facility] [address] [place], [address] WBC (Bld) [#/Vol] 5.6 10*3/uL Normal 4.4-11.0 [facility] Comment on above: Performed By: #### L 500.4050, L100.0100 ####[facility] [address] [place], [address] Comprehensive Metabolic Prof ilon 12-22-2023 Albumin [Mass/Vol] 3.4 g/dL Normal 3.2-5.0 [facility] Comment on above: Performed By: #### L 500.4050, L100.0100 ####[facility] [address] [place], [address] Albumin/Globulin [Mass ratio] 0.9 {ratio} Normal 0.9-2.4 [facility] Comment on above: Performed By: #### L 500.4050, L100.0100 ####[facility] [address] [place], [address] ALK P 72 U/L Normal 45-117 [facility] Comment on above: Performed By: #### L 500.4050, L100.0100 ####[facility] [address] [place], [address] ALT [Catalytic activity/Vol] 21 U/L Normal 13-56 [facility] Comment on above: Performed By: #### L 500.4050, L100.0100 ####[facility] [address] [place], [address] AST [Catalytic activity/Vol] 22 U/L Normal 15-37 [facility] Comment on above: Performed By: #### L 500.4050, L100.0100 ####[facility] [address] [place], [address] Bilirubin [Mass/Vol] 0.70 mg/dL Normal 0.20-1.00 [facility] Comment on above: Result Comment: For patients on eltrombopag therapy, use of Dimension [place] TBIL is not recommended. Performed By: #### L 500.4050, L100.0100 ####[facility] [address] [place], [address] BUN/CRE 35.5 RATIO High 10-20 [facility] Comment on above: Performed By: #### L 500.4050, L100.0100 ####[facility] [address] [place], [address] CA,Total 9.8 mg/dL Normal 8.5-10.1 [facility] Comment on above: Performed By: #### L 500.4050, L100.0100 ####[facility] [address] [place], [address] Chloride [Moles/Vol] 108 mmol/L High 98-107 [facility] Comment on above: Performed By: #### L 500.4050, L100.0100 ####[facility] [address] [place], [address] CO2 [Moles/Vol] 23.0 mmol/L Normal 21.0-32.0 [facility] Comment on above: Performed By: #### L 500.4050, L100.0100 ####[facility] [address] [place], [address] Creatinine [Mass/Vol] 0.76 mg/dL Normal 0.55-1.02 [facility] Comment on above: Result Comment: The validity of the calculated GFR GFRAA in patients over 70 years has not been determined. Clinical correlation is essential. Performed By: #### L 500.4050, L100.0100 ####[facility] [address] [place], [address] EST GFR - AA 93 mL/min Normal >60 [facility] Comment on above: Result Comment: Afri can [place]cu[place] GFR Calc Performed By: #### L 500.4050, L100.0100 ####[facility] [address] [place], [address] GAP 9 Normal 5-15 [facility] Comment on above: Performed By: #### L 500.4050, L100.0100 ####[facility] [address] [place], [address] GFR/1.73 sq M.predicted among non-blacks MDRD (S/P/Bld) [Vol rate/Area] 76 mL/min/{1.73_m2} Normal >60 [facility] Comment on above: Result Comment: Non- GFR Calc Performed By: #### L 500.4050, L100.0100 ####[facility] [address] [place], [address] Globulin (S) [Mass/Vol] 3.6 g/dL Normal 2.2-4.2 [facility] Comment on above: Performed By: #### L 500.4050, L100.0100 ####[facility] [address] [place], [address] Glucose [Mass/Vol] 94 mg/dL Normal 74-106 [facility] Comment on above: Performed By: #### L 500.4050, L100.0100 ####[facility] [address] [place], [address] Potassium [Moles/Vol] 4.1 mmol/L Normal 3.5-5.1 [facility] Comment on above: Performed By: #### L 500.4050, L100.0100 ####[facility] [address] [place], [address] Sodium [Moles/Vol] 140 mmol/L Normal 136-145 [facility] Comment on above: Performed By: #### L 500.4050, L100.0100 ####[facility] [address] [place], [address] T PROT 7.0 g/dL Normal 6.4-8.2 [facility] Comment on above: Performed By: #### L 500.4050, L100.0100 ####[facility] [address] [place], [address] Urea nitrogen [Mass/Vol] 27 mg/dL High 7-18 [facility] Comment on above: Performed By: #### L 500.4050, L100.0100 ####[facility] [address] [place], [address] Neurology Visit Reporton Neurology Visit Report [facility] [address], [address] [place] [address] OFFICE VISIT Date of Service: 12/22/23 MR#: [id number] Acct: [id number] Name: SUSAN SENIOR Rep #: [id number] : 1935 Provider: Dr. Jb carey MD Age/Sex: 88/F [place] [facility] [place] Status: Signed HPI HPI Chief Complaint: Details: Interim History: Susan returns for follow-up visit. She has a history of hypertension and hyperlipidemia and borderline diabetes mellitus. 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 In August 2021, she had viral cold symptoms manifesting with fever and nasal discharge. Following the onset of her cold symptoms, she developed right-sided head/facial paresthesias that extended from the scalp to the jaw and her paresthesias have persisted since that time. She describes the paresthesias as a sensation of water running down her face. She did not have any facial weakness. She denied having speech difficulty or vision change. She has chronic bilateral hearing loss. She has been experiencing mild right frontal headaches that have been occurring for decades; these had occurred 1 or 2 days/month in years past. Following the onset of her right-sided facial paresthesias, she experienced almost daily right frontal mild headaches however these subsequently diminished in frequency to about 1 day/week. Her headaches are alleviated with acetaminophen. She takes gabapentin for her facial paresthesias and this has been of benefit. She takes gabapentin 100 mg twice daily and is tolerating this well. She sees a shipyard painter apprentice for chronic low back pain. She had a lumbar L3 compression fracture that was treated with cement kyphoplasty in 2016. She has received lumbar injections about once every 3 months. On her neurological evaluation in 2021, sensory loss was noted in the feet raising concern for the possibility of a polyneuropathy. An evaluation for polyneuropathy revealed an abnormal serum free light chains. A subsequent serum protein electrophoresis, serum immunoelectrophoresis and urine immunoelectrophoresis revealed no monoclonality. 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 Since 2022, she has been experiencing numbness and tingling in the right hand. She denied having neck pain. Right upper extremity EMG/nerve conduction studies in August 2023 revealed a right carpal tunnel syndrome. A right cubital tunnel syndrome was also noted. Loratadine was not of benefit for sinus congestion. Physical Exam: Neuro: The patient is awake and alert and responds appropriately; speech is fluent; motor strength is 5/5 in the first dorsal interosseous bilaterally and left abductor pollicis brevis and 4+/5 in the right abductor pollicis brevis; decreased soft touch is noted in the right index finger Neck: No bruits Heart: Regular rate and rhythm Supplemental Info CBC, CMP (09/25/2021): Hemoglobin 11.6 (low), hematocrit 35.6 (low), BUN 30 (high), BUN/creatinine ratio 39.8 (high), glucose 111 (high) Head CT (09/30/2021): FINDINGS: Normal soft tissue structures. Once again, the patient is status post prior left frontal craniotomy. There is mild cerebral atrophy with widening of the extra-axial spaces and ventricular dilatation. Normal white matter tracts of the cerebral hemispheres. Normal basal ganglia and thalami. Normal brainstem. Normal cerebellum. There is no intracranial hemorrhage. There are no findings of an acute ischemic infarction. Atherosclerotic calcification of the cavernous portions of the internal carotid arteries and vertebral arteries. Normal visualized paranasal sinuses. IMPRESSION: Chronic involutional changes of the brain. These images were reviewed on 02/17/2022. Evidence of an old left frontal craniotomy is noted. Mild diffuse age-related cerebral atrophy is noted. Mild bilateral periventricular chronic small vessel ischemic disease is noted. EKG (09/30/2021): Normal sinus rhythm. Normal EKG. Head MRI (10/14/2021): FINDINGS: There is mild cerebral atrophy with widening of the extra-axial spaces and ventricular dilatation. There are a limited number of small white matter hyperintensities, distributed throughout the deep white matter tracts of the cerebral hemispheres, consistent with mild chronic white matter ischemic changes. There is no evidence for recent intracranial ischemia or other cause of cytotoxic edema on diffusion weighted imaging (DWI). Normal T2* images of the brain without demonstrated susceptibility artifact. There is no demonstrated hemosiderin stain. Normal bilateral basal ganglia. Normal thalami. There is no extra-a (more content not included)... Normal [facility] Sacrum-Coccyx min 2 Viewson 12-04-2023 Sacrum-Coccyx min 2 Views [facility] Imaging Services [address] [place] [address] Sacrum-Coccyx min 2 Views MR#: [id number] Acct: [id number] Name: SUSAN SENIOR Rep #: [id number] : 1935 F 88 From: Diane yañez MD PCP: Dr. Olga Hurst MD Status: REG CLI Study: Sacrum-Coccyx min 2 Views Date of Exam: Exam# [id number] Ordering [place]: [place] [id number] HISTORY: pain after fall. TECHNIQUE: X-RAY - XR Sacrum/Coccyx Min 2 Views. COMPARISON: Pelvis 03/26/2018. Abdomen 11/04/2019 FINDINGS: SACRUM/COCCYX: Chronic L3 compression fracture with vertebroplasty and adjacent chronic susan fracture. No acute displaced fracture identified in the sacrococcygeal spine. SACRO-ILIAC JOINTS: Unremarkable. RAD/Sacrum-Coccyx min 2 Views IMPRESSION: Unremarkable sacro-coccygeal spine. Electronically Signed: Diane Cooper MD at 13:03 EDT , CC: Dr. Olga Hurst MD Production Planning Manager: Signed Normal [facility] CBC W/Diff, Automatedon 10-25 Anisocytosis Ql (Bld) RARE Normal [facility] Comment on above: Performed By: #### L 500.4050, L100.0100 ####[facility] [address] [place], [address] Comprehensive Metabolic Prof ilon 11-04-2023 Albumin [Mass/Vol] 3.1 g/dL Low 3.2-5.0 [facility] Comment on above: Performed By: #### L 500.4050, L100.0100 ####[facility] [address] [place], [address] Albumin/Globulin [Mass ratio] 0.9 {ratio} Normal 0.9-2.4 [facility] Comment on above: Performed By: #### L 500.4050, L100.0100 ####[facility] [address] [place], [address] ALK P 65 U/L Normal 45-117 [facility] Comment on above: Performed By: #### L 500.4050, L100.0100 ####[facility] [address], [address] ALT [Catalytic activity/Vol] 16 U/L Normal 13-56 [facility] Comment on above: Performed By: #### L 500.4050, L100.0100 ####[facility] [address] [place], [address] AST [Catalytic activity/Vol] 15 U/L Normal 15-37 [facility] Comment on above: Performed By: #### L 500.4050, L100.0100 ####[facility] [address] [place], [address] Bilirubin [Mass/Vol] 0.60 mg/dL Normal 0.20-1.00 [facility] Comment on above: Result Comment: For patients on eltrombopag therapy, use of Dimension [place] TBIL is not recommended. Performed By: #### L 500.4050, L100.0100 ####[facility] [address] [place], [address] BUN/CRE 40.0 RATIO High 10-20 [facility] Comment on above: Performed By: #### L 500.4050, L100.0100 ####[facility] [address] [place], [address] CA,Total 9.0 mg/dL Normal 8.5-10.1 [facility] Comment on above: Performed By: #### L 500.4050, L100.0100 ####[facility] [address] [place], [address] Chloride [Moles/Vol] 112 mmol/L High 98-107 [facility] Comment on above: Performed By: #### L 500.4050, L100.0100 ####[facility] [address] [place], [address] CO2 [Moles/Vol] 25.0 mmol/L Normal 21.0-32.0 [facility] Comment on above: Performed By: #### L 500.4050, L100.0100 ####[facility] [address] [place], [address] Creatinine [Mass/Vol] 0.75 mg/dL Normal 0.55-1.02 [facility] Comment on above: Result Comment: The validity of the calculated GFR GFRAA in patients over 70 years has not been determined. Clinical correlation is essential. Performed By: #### L 500.4050, L100.0100 ####[facility] [address] [place], [address] EST GFR - AA 94 mL/min Normal >60 [facility] Comment on above: Result Comment: Afri can Ecuadorean GFR Calc Performed By: #### L 500.4050, L100.0100 ####[facility] [address] [place], [address] GAP 3 Low 5-15 [facility] Comment on above: Performed By: #### L 500.4050, L100.0100 ####[facility] [address] [place], [address] GFR/1.73 sq M.predicted among non-blacks MDRD (S/P/Bld) [Vol rate/Area] 78 mL/min/{1.73_m2} Normal >60 [facility] Comment on above: Result Comment: Non- GFR Calc Performed By: #### L 500.4050, L100.0100 ####[facility] [address] [place], [address] Globulin (S) [Mass/Vol] 3.3 g/dL Normal 2.2-4.2 [facility] Comment on above: Performed By: #### L 500.4050, L100.0100 ####[facility] [address] [place], [address] Glucose [Mass/Vol] 86 mg/dL Normal 74-106 [facility] Comment on above: Performed By: #### L 500.4050, L100.0100 ####[facility] [address] [place], [address] Potassium [Moles/Vol] 4.3 mmol/L Normal 3.5-5.1 [facility] Comment on above: Performed By: #### L 500.4050, L100.0100 ####[facility] [address] [place], [address] Sodium [Moles/Vol] 140 mmol/L Normal 136-145 [facility] Comment on above: Performed By: #### L 500.4050, L100.0100 ####[facility] [address] [place], [address] T PROT 6.4 g/dL Normal 6.4-8.2 [facility] Comment on above: Performed By: #### L 500.4050, L100.0100 ####[facility] [address] [place], [address] Urea nitrogen [Mass/Vol] 30 mg/dL High 7-18 [facility] Comment on above: Performed By: #### L 500.4050, L100.0100 ####[facility] [address] [place], [address] Cardiology Visit Reporton Cardiology Visit Report [facility] [address] [place] [address] OFFICE VISIT Date of Service: 10/27/23 MR#: [id number] Acct: [id number] Name: SUSAN SENIOR Rep #: [id number] : 1935 Provider: Dr. Vasu Gonzalez MD Age/Sex: 88/F Location: [facility] Status: Signed HPI HPI History of Present Illness Details: SUSAN SENIOR, is a 88 year old white female outpatient cardiovascular follow-up of a history of chest discomfort, shortness of breath, superimposed upon a history of syncope, hyperlipidemia, hypertension. From a cardiac standpoint, patient is doing well. She did have COVID over Easter this past year and is still recovering with fatigue from this. Her BP is noted to be low today. She does not have any chest discomfort/heaviness/ti ghtness. She does ambulated with a wheeled walker. She does not have any worsening symptoms of shortness of breath. She does not have any orthopnea. She denies PND. She does not have any symptoms of congestive heart failure. She does not have any palpitations that she is aware of. She does not have any lightheadedness or dizziness. She does not have any near-syncope or syncope. She does not have any lower extremity edema. She does not have any symptoms of claudication. 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 Required: No Accompanied by: Self Is patient in pain?: No Allergies amoxicillin (Amoxicillin) Allergy (Severe, Verified 10/27/23 15:16) Swelling cyclobenzaprine HCl (From Flexeril) Allergy (Severe, Verified 10/27/23 15:16) Swelling diclofenac sodium (From Voltaren) Allergy (Severe, Verified 10/27/23 15:16) Swelling dicyclomine Allergy (Severe, Verified 10/27/23 15:16) Swelling ketoprofen (From Oruvail) Allergy (Severe, Verified 10/27/23 15:16) Swelling sulfabenzamide Allergy (Severe, Verified 10/27/23 15:16) Anaphylaxis tramadol Allergy (Unknown, Verified 10/27/23 15:16) Unknown hydroxyzine HCl (From Atarax) Allergy (Verified 10/27/23 15:16) Swelling prednisone Allergy (Verified 10/27/23 15:16) Hives pseudoephedrine HCl (From Sudafed) Allergy (Verified 10/27/23 15:16) Other cephalexin Adverse Reaction (Severe, Verified 10/27/23 15:16) Rash clindamycin Adverse Reaction (Severe, Verified 10/27/23 15:16) Hives codeine Adverse Reaction (Severe, Verified 10/27/23 15:16) Upset Stomach Medications ???Medication ???Instructions ???Recorded ???Confirmed ???Type methotrexate sodium 2.5 mg tablet 25 mg PO QWEEK 07/12/21 10/27/23 History calcium citrate 315 mg 2 tab PO BID Supplement Kettle Operator Head 09/16/22 10/27/23 History calcium-vitamin D3 6.25 mcg (250 unit) tablet folic acid 1 mg tablet 2 mg PO DAILY 09/16/22 10/27/23 History leucovorin calcium 15 mg tablet 15 mg PO QWEEK 09/16/22 10/27/23 History loratadine 10 mg tablet 10 mg PO DAILY PRN nasal/sinus 02/04/23 10/27/23 Rx congestion/drainage #10 tabs gabapentin 100 mg capsule 100 mg PO BID #60 caps 07/29/23 10/27/23 Rx albuterol sulfate 90 mcg/actuation 2 puff inhalation Q4H PRN PRN 08/02/23 10/27/23 Rx aerosol inhaler (Ventolin HFA) Wheezing 30 days #6.7 grams lisinopril 10 mg tablet 10 mg PO BID blood pressure #180 10/05/23 10/27/23 Rx tabs acetaminophen 650 mg 650 mg PO Q8H 10/27/23 10/27/23 History tablet,extended release (Tylenol Arthritis Pain) atorvastatin 20 mg tablet 20 mg PO DAILY 10/27/23 10/27/23 History famotidine 20 mg tablet 20 mg PO DAILY PRN 10/27/23 10/27/23 History (Zantac-360 (famotidine)) ferrous sulfate 325 mg (65 mg 325 mg PO QDAY 10/27/23 10/27/23 History iron) tablet (FeroSul) Have you fallen in the past year?: Yes PFSH Medical History COVID-19 Rheumatoid arthritis Pure hypercholesterolemia Essential hypertension Incontinence Back pain Limb weakness Shoulder pain Hemorrhoids Arthritis Syncope Brain tumor Chest pressure Surgical History History of back surgery History of breast biopsy History of appendectomy History of knee replacement procedure of left knee History of brain surgery Family History Mother Heart disease Father Heart disease Other Cancer Social History Smoking Status: Never smoker second hand exposure: No alcohol intake: never substance use type: does not use what type of physical activity do you participate in: none wolf/adventism: Chr (more content not included)... Normal [facility] Emergency Department Summary on 10-06-2023 Emergency Department Summary [facility] Medical Records Department [address] [place] [address] Emergency Department Summary 10/06/23 MR#: [id number] Acct: [id number] Name: SUSAN SENIOR Rep #: [id number] : 1935 88 From: Jack Wells DO PCP: Dr. Olga Hurst MD Status:DEP ER Location: ED HPI History of Present Illness Chief Complaint: Back Informant: patient, family and friend Narrative Narrative: Patient is 88-year-old female with past medical history of hypertension and lumbar degeneration status post kyphoplasty. She reports that roughly 1 week ago she tripped in her bedroom and fell. She denies striking her head or any loss of consciousness. She states she was able to get back up 5 to 10 minutes later with the help of her neighbors. She states that since that time she has had pain to her midline and left-sided low back. She reports she has been able to ambulate but it has been painful to do so. She reports she is having pain radiating down her left leg. She denies any loss of bowel bladder control or IV drug use. She states she has been taking Tylenol arthritis which has helped symptoms but they have persisted and with concern for potential underlying injury from the fall she comes in for evaluation. She states has been no repeat trauma since the fall roughly 1 week ago. [facility] Medical History COVID-19 Rheumatoid arthritis Pure hypercholesterolemia Essential hypertension Incontinence Back pain Limb weakness Shoulder pain Hemorrhoids Arthritis Syncope Brain tumor Chest pressure Home Medications ???Medication ???Instructions ???Recorded ???Last Taken ???Type aspirin 81 mg chewable tablet 81 mg PO DAILY@0800 heart health 11/10/13 Unknown History atorvastatin 20 mg tablet 20 mg PO QHS cholesterol 30 days 03/15/18 Unknown History #30 tabs methotrexate sodium 2.5 mg tablet 25 mg PO QWEEK 07/12/21 Unknown History calcium citrate 315 mg 2 tab PO BID Supplement Kettle Operator Head 09/16/22 Unknown History calcium-vitamin D3 6.25 mcg (250 unit) tablet folic acid 1 mg tablet 2 mg PO DAILY 09/16/22 Unknown History leucovorin calcium 15 mg tablet 15 mg PO QWEEK 09/16/22 Unknown History loratadine 10 mg tablet 10 mg PO DAILY PRN nasal/sinus 02/04/23 Unknown Rx congestion/drainage #10 tabs gabapentin 100 mg capsule 100 mg PO BID #60 caps 07/29/23 Unknown Rx albuterol sulfate 90 mcg/actuation 2 puff inhalation Q4H PRN PRN 08/02/23 Unknown Rx aerosol inhaler (Ventolin HFA) Wheezing 30 days #6.7 grams azithromycin 250 mg tablet See Rx Instructions PO .COMPLEX #6 08/02/23 Unknown Rx (Zithromax Z-Mathew) tabs doxycycline hyclate 100 mg tablet 100 mg PO BID #14 tabs 08/02/23 Unknown Rx lisinopril 10 mg tablet 10 mg PO BID blood pressure #180 10/05/23 Unknown Rx tabs diazepam 2 mg tablet (Valium) 2 mg PO TID PRN Muscle pain/spasm 10/06/23 Unknown Rx 5 days #15 tabs Allergy/AdvReac Type Severity Reaction Status Date / Time amoxicillin (Amoxicillin) Allergy Severe Swelling Verified 10/06/23 21:43 cyclobenzaprine HCl (From Allergy Severe Swelling Verified 10/06/23 21:43 Flexeril) diclofenac sodium (From Allergy Severe Swelling Verified 10/06/23 21:43 Voltaren) dicyclomine Allergy Severe Swelling Verified 10/06/23 21:43 ketoprofen (From Oruvail) Allergy Severe Swelling Verified 10/06/23 21:43 sulfabenzamide Allergy Severe Anaphylaxis Verified 10/06/23 21:43 tramadol Allergy Unknown Unknown Verified 10/06/23 21:43 hydroxyzine HCl (From Atarax) Allergy Swelling Verified 10/06/23 21:43 prednisone Allergy Hives Verified 10/06/23 21:43 pseudoephedrine HCl (From Allergy Other Verified 10/06/23 21:43 Sudafed) cephalexin AdvReac Severe Rash Verified 10/06/23 21:43 clindamycin AdvReac Severe Hives Verified 10/06/23 21:43 codeine AdvReac Severe Upset Verified 10/06/23 21:43 Stomach Family History Mother Heart disease Father Heart disease Other Cancer Surgical History History of appendectomy History of back surgery History of brain surgery History of breast biopsy History of knee replacement procedure of left knee Social History Smoking Status: Never smoker second hand exposure: No alcohol intake: never substance use type: does not use what type of physical activity do you participate in: none wolf/adventism: Faith seatbelt use: always ROS ROS ED Constitutional Constitutional ED: Denies chills or fever(s) Eyes Eyes: Denies change in vision or diplopia ENT ENT ED: Denies sore throat Cardiovascular Cardiovascular: Reports other Details: Negative syncope ; Denies chest pain Respiratory/Chest (more content not included)... Normal [facility] Spine Lumbar without Contras ton 10-06-2023 Spine Lumbar without Contrast [facility] Imaging Services [address] [place] [address] Spine Lumbar without Contrast MR#: [id number] Acct: [id number] Name: SUSAN SENIOR Rep #: [id number] : 1935 F 88 From: Wolf dias MD PCP: Dr. Olga Hurst MD Status: REG ER Study: Spine Lumbar without Contrast Date of Exam: Exam# [id number] Ordering [place]: [place] [id number] INDICATION: pain EXAMINATION: CT LUMBAR SPINE - CT Spine Lumbar W/O Contrast Injection TECHNIQUE: Helically acquired images were obtained of the lumbar spine. 2D reformats were reviewed. A radiation dose optimization technique was used for this scan. The protocol utilizes one or more of the following dose reduction techniques: automated exposure control, adjustment of mA and/or kV according to patient size,and/or use of iterative reconstruction technique. IV Contrast dosage and agent: None. RADIATION DOSAGE (If Supplied By Facility): CTDIvol = ( 20.68 ) mGy, DLP = ( 688.74 ) mGycm COMPARISON: Prior study dated: 01/13/2018 FINDINGS: VERTEBRAE: L3 kyphoplasty. Radiopaque bar at the left pedicle at L3 extending to the vertebral body. No fracture or traumatic subluxation. No discrete lytic or blastic abnormality observed. Grade 1 anterolisthesis of L4 on L5. DISCS and SPINAL CANAL: Disc space narrowing throughout the lower lumbar spine with vacuum disc phenomenon. No critical stenosis. VISUALIZED ABDOMEN: Visualized abdominal aorta is not dilated. There is no retroperitoneal adenopathy. Hiatal hernia noted. CT/Spine Lumbar without Contrast IMPRESSION: No evidence of acute lumbar spinal fracture or spondylolisthesis. Degenerative changes at the lower lumbar spine. Electronically Signed: Wolf Argueta MD at 22:57 EDT , CC: Dr. Olga Hurst MD; Jack Wells DO Production Planning Manager: Signed Normal [facility] Urine Cultureon 09-27-2023 [facility] Order Date: 09/25/23 Order Info: 630-4 - CUUR Below infection level. Mixed Gram Pos Gram Neg Org [place] Count 1000-10,000 MIXC Mixed contaminants. Submit a new specimen if indicated. Normal [facility] Comment on above: Performed By: #### M 100.2200 ####[facility] [address] [place], [address] CBC W/Diff, Automatedon 08-26 Anisocytosis Ql (Bld) 1+ Normal [facility] Comment on above: Performed By: #### L 503.6150, L100.0100 ####[facility] [address] [place], [address] Ironon 09-14-2023 Iron [Mass/Vol] 66 ug/dL Normal 50-170 [facility] Comment on above: Performed By: #### L 503.6150, L100.0100 ####[facility] [address] [place], [address] NCS and/or EMG Patienton NCS and/or EMG Patient [facility] Pulmonary Services/Neurology [address] [place] [address] MR#: [id number] Acct: [id number] Name: SUSAN SENIOR Rep #: [id number] : 1935 88 From: Kimani Flowers MD Referring Dr: Jb Joiner MD Status: DEP CL I Location: N Date: 08/26/23 Sex: F C ADDENDUM by Dr. Kimani Flowers MD on 12/30/23 at 1336 Addendum Line 2 in Impression should state that there is no electrodiagnostic evidence for cubital tunnel syndrome. 12/30/23 1336 Date Kimani Flowers MD cc: Dr. Olga Hurst MD; Dr. Kimani Flowers MD; Dr. Jb Joiner MD * Signed NCS and/or EMG Patient Report Ordering Doctor: Jb Joiner DATE OF SERVICE: 08/26/23 Ora presents for electrodiagnostic testing of the right upper limb. She reports numbness and tingling in the right hand. Electrodiagnostic findings: Right median motor nerve demonstrates prolonged distal latency with normal amplitude and reduced conduction velocity. Right ulnar motor nerve demonstrates normal distal latency and amplitude with a nearly 20% drop in conduction across the elbow. Prolonged right median F???wave is noted. Absent right median sensory latency at the wrist. Normal ulnar and radial sensory responses. Needle EMG testing was performed the right upper limb. All muscles tested showed no evidence of denervation with normal motor unit action potentials. Electrodiagnostic impression: This an abnormal study in the right upper limb 1. Electrodiagnostic findings suggestive of right-sided median mononeuropathy. This is consistent with a severe right carpal tunnel syndrome 2. No electrodiagnostic evidence suggestive for right ulnar neuropathy. This is consistent with a mild right cubital tunnel syndrome. 3. There is no electrodiagnostic evidence for cervical radiculopathy. Multi Select Codes Neurology Neurology Interp Codes: 11031-84 Musc test done w/n test comp (interp) and 66494-91 Nrv cndj tst 5-6 studies (interp) 08/26/23 1314 Date Kimani Flowers MD CC: Dr. Olga Hurst MD; Dr. Kimani Flowers MD; Dr. Jb Joiner MD Date Dictated: 08/26/231307 Date Transcribed: 08/26/231307 Production Planning Manager: AA Signed Normal [facility] Absolute lymphocyte countOrd ered By: Sherinanalisa Patel on 08-12-2023 Lymphocytes Auto (Unsp spec) [#/Vol] 1.20 10*3/uL 0.83-4.51 [facility] Automated lymphocyte count a s percentage of total leukocytesOrdered By: Sherin Patel on 08-12-2023 Lymphocytes/100 WBC Auto (Unsp spec) 24.8 % 19-41 [facility] Basophil percentageOrdered B y: Sherinanalisa Patel on 08-12-2023 Basophils/100 WBC (Bld) 1.4 % 0-1 [facility] Bilirubin [Mass/Vol] 0.70 mg/dL 0.20-1.00 [facility] Comment on above: For patients on eltr ombopag therapy, use of Dimension Latrobe TBIL is not recommended. Chloride [Moles/Vol] 109 mmol/L 98-107 [facility] Eosinophils/100 WBC (Bld) 2.7 % 0-5 [facility] Glucose [Mass/Vol] 100 mg/dL 74-106 [facility] Comment on above: Fasting Glucose resu lt from 100 to 125 mg/dL suggests IMPAIRED HOMEOSTASIS per A.D.A. criteria. Hemoglobin (Bld) [Mass/Vol] 9.3 g/dL 12.0-15.0 [facility] Monocytes/100 WBC (Bld) 17.8 % 0-10 [facility] Neutrophils (Bld) [#/Vol] 2.6 10*3/uL 2.0-7.7 [facility] Neutrophils/100 WBC (Bld) 53.1 % 47-70 [facility] Potassium [Moles/Vol] 4.1 mmol/L 3.5-5.1 [facility] Protein [Mass/Vol] 6.0 g/dL 6.4-8.2 [facility] Sodium [Moles/Vol] 141 mmol/L 136-145 [facility] WBC (Bld) [#/Vol] 4.8 10*3/uL 4.4-11.0 [facility] CBC W/Diff, Automatedon 04- Absolute Lymph 1.20 X10 3/uL Normal 0.83-4.51 [facility] Comment on above: Performed By: #### L 500.4050, L100.0100 #### [facility] [address] [place], [address] Absolute Neut 2.6 X10 3/uL Normal 2.0-7.7 [facility] Comment on above: Performed By: #### L 500.4050, L100.0100 #### [facility] [address] [place], [address] Basophils/100 WBC (Bld) 1.4 % High 0-1 [facility] Comment on above: Performed By: #### L 500.4050, L100.0100 #### [facility] [address] [place], [address] Eosinophils/100 WBC (Bld) 2.7 % Normal 0-5 [facility] Comment on above: Performed By: #### L 500.4050, L100.0100 #### [facility] [address] [place], [address] Erythrocyte distribution width (RBC) [Ratio] 17.7 % High 11.6-14.6 [facility] Comment on above: Performed By: #### L 500.4050, L100.0100 #### [facility] [address] [place], [address] Hematocrit (Bld) [Volume fraction] 30.9 % Low 37-47 [facility] Comment on above: Performed By: #### L 500.4050, L100.0100 #### [facility] [address] [place], [address] Hemoglobin (Bld) [Mass/Vol] 9.3 g/dL Low 12.0-15.0 [facility] Comment on above: Performed By: #### L 500.4050, L100.0100 #### [facility] [address] [place], [address] IG% 0.200 Normal 0.0-0.9 [facility] Comment on above: Result Comment: IG% - Immature Granulocytes (promyelocytes, myelocytes and metamyelocytes) > 1% indicates that a LEFT SHIFT is Present. Performed By: #### L 500.4050, L100.0100 #### [facility] [address] [place], [address] Lymphocytes/100 WBC (Bld) 24.8 % Normal 19-41 [facility] Comment on above: Performed By: #### L 500.4050, L100.0100 #### [facility] [address] [place], [address] MCH (RBC) [Entitic mass] 24.3 pg Low 27.0-32.0 [facility] Comment on above: Performed By: #### L 500.4050, L100.0100 #### [facility] [address] [place], [address] MCHC (RBC) [Mass/Vol] 30.1 g/dL Low 32-36 [facility] Comment on above: Performed By: #### L 500.4050, L100.0100 #### [facility] [address] [place], [address] MCV (RBC) [Entitic vol] 80.7 fL Low 81-99 [facility] Comment on above: Performed By: #### L 500.4050, L100.0100 #### [facility] [address] [place], [address] Monocytes/100 WBC (Bld) 17.8 % High 0-10 [facility] Comment on above: Performed By: #### L 500.4050, L100.0100 #### [facility] [address] [place], [address] Neutrophils/100 WBC (Bld) 53.1 % Normal 47-70 [facility] Comment on above: Performed By: #### L 500.4050, L100.0100 #### [facility] [address] [place], [address] Nucleated RBC (Bld) [#/Vol] 0 10*3/uL Normal 0-5 [facility] Comment on above: Performed By: #### L 500.4050, L100.0100 #### [facility] [address] [place], [address] Platelet mean volume (Bld) [Entitic vol] 10.6 fL Normal 6.2-12.0 [facility] Comment on above: Performed By: #### L 500.4050, L100.0100 #### [facility] [address] [place], [address] Platelets (Bld) [#/Vol] 236 10*3/uL Normal 150-450 [facility] Comment on above: Performed By: #### L 500.4050, L100.0100 #### [facility] [address] [place], [address] RBC (Bld) [#/Vol] 3.83 10*6/uL Low 4.2-5.4 [facility] Comment on above: Performed By: #### L 500.4050, L100.0100 #### [facility] [address] [place], [address] RDW SD 50.8 fl High 35.1-43.9 [facility] Comment on above: Performed By: #### L 500.4050, L100.0100 #### [facility] [address] [place], [address] WBC (Bld) [#/Vol] 4.8 10*3/uL Normal 4.4-11.0 [facility] Comment on above: Performed By: #### L 500.4050, L100.0100 #### [facility] [address] [place], [address] Comprehensive Metabolic Prof ilon 08-12-2023 Albumin [Mass/Vol] 2.9 g/dL Low 3.2-5.0 [facility] Comment on above: Performed By: #### L 500.4050, L100.0100 #### [facility] [address] [place], [address] Albumin/Globulin [Mass ratio] 0.9 {ratio} Normal 0.9-2.4 [facility] Comment on above: Performed By: #### L 500.4050, L100.0100 #### [facility] [address] [place], [address] ALK P 72 U/L Normal 45-117 [facility] Comment on above: Performed By: #### L 500.4050, L100.0100 #### [facility] [address] [place], [address] ALT [Catalytic activity/Vol] 14 U/L Normal 13-56 [facility] Comment on above: Performed By: #### L 500.4050, L100.0100 #### [facility] [address] [place], [address] AST [Catalytic activity/Vol] 22 U/L Normal 15-37 [facility] Comment on above: Performed By: #### L 500.4050, L100.0100 #### [facility] [address] [place], [address] Bilirubin [Mass/Vol] 0.70 mg/dL Normal 0.20-1.00 [facility] Comment on above: Result Comment: For patients on eltrombopag therapy, use of Dimension [place] TBIL is not recommended. Performed By: #### L 500.4050, L100.0100 #### [facility] [address] [place], [address] BUN/CRE 24.4 RATIO High 10-20 [facility] Comment on above: Performed By: #### L 500.4050, L100.0100 #### [facility] Laboratory [address] [place], [address] CA,Total 9.2 mg/dL Normal 8.5-10.1 [facility] Comment on above: Performed By: #### L 500.4050, L100.0100 #### [facility] Laboratory [address] [place], [address] Chloride [Moles/Vol] 109 mmol/L High 98-107 [facility] Comment on above: Performed By: #### L 500.4050, L100.0100 #### [facility] Laboratory [address] [place], [address] CO2 [Moles/Vol] 26.0 mmol/L Normal 21.0-32.0 [facility] Comment on above: Performed By: #### L 500.4050, L100.0100 #### [facility] Laboratory [address] [place], [address] Creatinine [Mass/Vol] 0.82 mg/dL Normal 0.55-1.02 [facility] Comment on above: Result Comment: The validity of the calculated GFR GFRAA in patients over 70 years has not been determined. Clinical correlation is essential. Performed By: #### L 500.4050, L100.0100 #### [facility] Laboratory [address], [address] EST GFR - AA 85 mL/min Normal >60 [facility] Comment on above: Result Comment: Afri can Ecuadorean GFR Calc Performed By: #### L 500.4050, L100.0100 #### [facility] Laboratory [address] [place], [address] GAP 6 Normal 5-15 [facility] Comment on above: Performed By: #### L 500.4050, L100.0100 #### [facility] Laboratory [address] [place], [address] GFR/1.73 sq M.predicted among non-blacks MDRD (S/P/Bld) [Vol rate/Area] 70 mL/min/{1.73_m2} Normal >60 [facility] Comment on above: Result Comment: Non- GFR Calc Performed By: #### L 500.4050, L100.0100 #### [facility] Laboratory [address] [place], [address] Globulin (S) [Mass/Vol] 3.1 g/dL Normal 2.2-4.2 [facility] Comment on above: Performed By: #### L 500.4050, L100.0100 #### [facility] Laboratory [address] [place], [address] Glucose [Mass/Vol] 100 mg/dL Normal 74-106 [facility] Comment on above: Result Comment: Fast ing Glucose result from 100 to 125 mg/dL suggests IMPAIRED HOMEOSTASIS per A.D.A. criteria. Performed By: #### L 500.4050, L100.0100 #### [facility] Laboratory [address] [place], [address] Potassium [Moles/Vol] 4.1 mmol/L Normal 3.5-5.1 [facility] Comment on above: Performed By: #### L 500.4050, L100.0100 #### [facility] Laboratory [address] [place], [address] Sodium [Moles/Vol] 141 mmol/L Normal 136-145 [facility] Comment on above: Performed By: #### L 500.4050, L100.0100 #### [facility] Laboratory [address] [place], [address] T PROT 6.0 g/dL Low 6.4-8.2 [facility] Comment on above: Performed By: #### L 500.4050, L100.0100 #### [facility] Laboratory [address] [place], [address] Urea nitrogen [Mass/Vol] 20 mg/dL High 7-18 [facility] Comment on above: Performed By: #### L 500.4050, L100.0100 #### [facility] Laboratory [address] [place], [address] Determination of erythrocyte mean corpuscular volume (MCV)Ordered By: Sherin Patel on 08-12-2023 MCV (RBC) [Entitic vol] 80.7 fL 81-99 [facility] Erythrocyte distribution wid th ratioOrdered By: Sherin Jorge on 08-12-2023 Erythrocyte distribution width (RBC) [Ratio] 17.7 % 11.6-14.6 [facility] Erythrocyte distribution wid th standard deviationOrdered By: [facility] on 08-12-2023 Erythrocyte distribution width (RBC) [Entitic vol] 50.8 fL 35.1-43.9 [facility] Hematocrit Auto (Bld) [Volum e fraction]Ordered By: [facility] Jorge on 08-12-2023 Hematocrit (Bld) [Volume fraction] 30.9 % 37-47 [facility] Immature granulocytes/100 WB C Auto (Bld)Ordered By: [facility] Jorge on 08-12-2023 Immature granulocytes/100 WBC (Bld) 0.200 % 0.0-0.9 [facility] Comment on above: IG% - Immature Granu locytes (promyelocytes, myelocytes and metamyelocytes) > 1% indicates that a LEFT SHIFT is Present. Laboratory - Chemistry and C hemistry - challengeOrdered By: Sherin Patel on 08-12-2023 Albumin/Globulin [Mass ratio] 0.9 {ratio} 0.9-2.4 [facility] ALP [Catalytic activity/Vol] 72 U/L 45-117 [facility] ALT [Catalytic activity/Vol] 14 U/L 13-56 [facility] CO2 [Moles/Vol] 26.0 mmol/L 21.0-32.0 [facility] Globulin (S) [Mass/Vol] 3.1 g/dL 2.2-4.2 [facility] Urea nitrogen/Creatinine [Mass ratio] 24.4 mg/mg 10-20 [facility] Laboratory - Hematology and Cell countsOrdered By: Sherin Patel on 08-12-2023 MCH (RBC) [Entitic mass] 24.3 pg 27.0-32.0 [facility] MCHC (RBC) [Mass/Vol] 30.1 g/dL 32-36 [facility] Nucleated RBC/100 WBC (Bld) [Ratio] 0 % 0-5 [facility] Platelet mean volume (Bld) [Entitic vol] 10.6 fL 6.2-12.0 [facility] Platelets (Bld) [#/Vol] 236 10*3/uL 150-450 [facility] No Panel InformationOrdered By: Sherin Patel on 08-12-2023 Estimated GFR (MDRD) Amer 85 mL/min >60 [facility] Comment on above: GFR Calc Estimated GFR (MDRD) Non-Af Amer 70 mL/min >60 [facility] Comment on above: Non- GFR Calc RBC Auto (Bld) [#/Vol]Ordere d By: Sherin Patel on 08-12-2023 RBC (Bld) [#/Vol] 3.83 10*6/uL 4.2-5.4 [facility] Serum or plasma calcium jigar urement (mass/volume)Ordered By: Sherin Patel on 08-12-2023 Calcium [Mass/Vol] 9.2 mg/dL 8.5-10.1 [facility] Serum or plasma creatinine m easurement (mass/volume)Ordered By: Sherin Patel on 08-12-2023 Creatinine [Mass/Vol] 0.82 mg/dL 0.55-1.02 [facility] Comment on above: The validity of the calculated GFR & GFRAA in patients over 70 years has not been determined. Clinical correlation is essential. Serum or plasma urea nitroge n measurement (mass/volume)Ordered By: Sherin Patel on 08-12-2023 Urea nitrogen [Mass/Vol] 20 mg/dL 7- [facility] Thin prep Papanicolaou smear with manual screeningOrdered By: Sherin Patel on 08-12-2023 Thin prep Papanicolaou smear with manual screening 2.9 g/dL 3.2-5.0 [facility] Thin prep Papanicolaou smear with manual screening 22 U/L 15- [facility] Thin prep Papanicolaou smear with manual screening 6 5-15 [facility] 12 Lead EKGon 08-02-2023 12 Lead EKG [facility] Cardiovascular Services [address] [place] [address] 12 Lead EKG 08/02/23 1443 MR#: [id number] Acct: [id number] Name: SUSAN SENIOR Rep #: [id number] : 1935 88 From: Bertin Sykes MD Attending Dr: Status: DEP ER Ordering Dr: Jyoti Pearson Date: 08/02/23 Location: ED Sex: F C Admitted: Test Reason : Blood Pressure : / mmHG Vent. Rate : 072 BPM Atrial Rate : 072 BPM P-R Int : 152 ms QRS Dur : 082 ms QT Int : 424 ms P-R-T Axes : 026 004 037 degrees QTc Int : 464 ms Normal sinus rhythm Normal ECG Confirmed by Bertin Sykes ([id number]), editor map DANDY HOSKINS ([id number]) on 08/03/2023 11:09:16 AM Referred By: Confirmed By:Bertin Sykes 08/03/23 1109 Date Bertin Sykes MD CC: Dr. Olga Hurst MD; Dr. Chadwick Marin DO; ASHLEIGH Holden Signed Normal [facility] Absolute lymphocyte countOrd ered By: Jyoti Pearson on 08-02-2023 Lymphocytes Auto (Unsp spec) [#/Vol] 0.98 10*3/uL 0.83-4.51 [facility] Automated lymphocyte count a s percentage of total leukocytesOrdered By: Jyoti Pearson on 08-02-2023 Lymphocytes/100 WBC Auto (Unsp spec) 18.7 % 19-41 [facility] Basic Metabolic Profile (BMP )on 08-02-2023 BUN/CRE 26.4 RATIO High 10-20 [facility] Comment on above: Order Comment: 'TROP ' Serial specimen #1, #2 or #3: 1 Performed By: #### L 100.0100, L500.2500, L501.4020 ####[facility] [address] [place], [address] CA,Total 8.8 mg/dL Normal 8.5-10.1 [facility] Comment on above: Order Comment: 'TROP ' Serial specimen #1, #2 or #3: 1 Performed By: #### L 100.0100, L500.2500, L501.4020 ####[facility] [address] [place], [address] Chloride [Moles/Vol] 107 mmol/L Normal 98-107 [facility] Comment on above: Order Comment: 'TROP ' Serial specimen #1, #2 or #3: 1 Performed By: #### L 100.0100, L500.2500, L501.4020 ####[facility] [address] [place], [address] CO2 [Moles/Vol] 26.0 mmol/L Normal 21.0-32.0 [facility] Comment on above: Order Comment: 'TROP ' Serial specimen #1, #2 or #3: 1 Performed By: #### L 100.0100, L500.2500, L501.4020 ####[facility] [address] [place], [address] Creatinine [Mass/Vol] 0.87 mg/dL Normal 0.55-1.02 [facility] Comment on above: Order Comment: 'TROP ' Serial specimen #1, #2 or #3: 1 Result Comment: The validity of the calculated GFR GFRAA in patients over 70 years has not been determined. Clinical correlation is essential. Performed By: #### L 100.0100, L500.2500, L501.4020 ####[facility] [address] [place], [address] ECRCL 45.50 ml/min Normal [facility] Comment on above: Order Comment: 'TROP ' Serial specimen #1, #2 or #3: 1 Performed By: #### L 100.0100, L500.2500, L501.4020 ####[facility] [address] [place], [address] EST GFR - AA 79 mL/min Normal >60 [facility] Comment on above: Order Comment: 'TROP ' Serial specimen #1, #2 or #3: 1 Result Comment: Afri can Ecuadorean GFR Calc Performed By: #### L 100.0100, L500.2500, L501.4020 ####[facility] [address] [place], [address] GAP 6 Normal 5-15 [facility] Comment on above: Order Comment: 'TROP ' Serial specimen #1, #2 or #3: 1 Performed By: #### L 100.0100, L500.2500, L501.4020 ####[facility] [address] [place], [address] GFR/1.73 sq M.predicted among non-blacks MDRD (S/P/Bld) [Vol rate/Area] 66 mL/min/{1.73_m2} Normal >60 [facility] Comment on above: Order Comment: 'TROP ' Serial specimen #1, #2 or #3: 1 Result Comment: Non- GFR Calc Performed By: #### L 100.0100, L500.2500, L501.4020 ####[facility] [address] [place], [address] Glucose [Mass/Vol] 103 mg/dL Normal 74-106 [facility] Comment on above: Order Comment: 'TROP ' Serial specimen #1, #2 or #3: 1 Result Comment: Fast ing Glucose result from 100 to 125 mg/dL suggests IMPAIRED HOMEOSTASIS per A.D.A. criteria. Performed By: #### L 100.0100, L500.2500, L501.4020 ####[facility] [address] [place], [address] Potassium [Moles/Vol] 3.9 mmol/L Normal 3.5-5.1 [facility] Comment on above: Order Comment: 'TROP ' Serial specimen #1, #2 or #3: 1 Performed By: #### L 100.0100, L500.2500, L501.4020 ####[facility] [address] [place], [address] Sodium [Moles/Vol] 139 mmol/L Normal 136-145 [facility] Comment on above: Order Comment: 'TROP ' Serial specimen #1, #2 or #3: 1 Performed By: #### L 100.0100, L500.2500, L501.4020 ####[facility] [address] [place], [address] Urea nitrogen [Mass/Vol] 23 mg/dL High 7-18 [facility] Comment on above: Order Comment: 'TROP ' Serial specimen #1, #2 or #3: 1 Performed By: #### L 100.0100, L500.2500, L501.4020 ####[facility] [address] [place], [address] Basophil percentageOrdered B y: Jyoti Pearson on 08-02-2023 Basophils/100 WBC (Bld) 0.6 % 0-1 [facility] Chloride [Moles/Vol] 107 mmol/L 98-107 [facility] Eosinophils/100 WBC (Bld) 4.0 % 0-5 [facility] Glucose [Mass/Vol] 103 mg/dL 74-106 [facility] Comment on above: Fasting Glucose resu lt from 100 to 125 mg/dL suggests IMPAIRED HOMEOSTASIS per A.D.A. criteria. Hemoglobin (Bld) [Mass/Vol] 10.0 g/dL 12.0-15.0 [facility] Monocytes/100 WBC (Bld) 16.8 % 0-10 [facility] Neutrophils (Bld) [#/Vol] 3.1 10*3/uL 2.0-7.7 [facility] Neutrophils/100 WBC (Bld) 59.5 % 47-70 [facility] Potassium [Moles/Vol] 3.9 mmol/L 3.5-5.1 [facility] Sodium [Moles/Vol] 139 mmol/L 136-145 [facility] WBC (Bld) [#/Vol] 5.2 10*3/uL 4.4-11.0 [facility] CBC W/Diff, Automatedon 04-0 -2023 Absolute Lymph 0.98 X10 3/uL Normal 0.83-4.51 [facility] Comment on above: Performed By: #### L 100.0100, L500.2500, L501.4020 #### [facility] Laboratory [address] [place], [address] Absolute Neut 3.1 X10 3/uL Normal 2.0-7.7 [facility] Comment on above: Performed By: #### L 100.0100, L500.2500, L501.4020 #### [facility] Laboratory [address] [place], [address] Basophils/100 WBC (Bld) 0.6 % Normal 0-1 [facility] Comment on above: Performed By: #### L 100.0100, L500.2500, L501.4020 #### [facility] Laboratory [address] [place], [address] Eosinophils/100 WBC (Bld) 4.0 % Normal 0-5 [facility] Comment on above: Performed By: #### L 100.0100, L500.2500, L501.4020 #### [facility] Laboratory [address] [place], [address] Erythrocyte distribution width (RBC) [Ratio] 17.3 % High 11.6-14.6 [facility] Comment on above: Performed By: #### L 100.0100, L500.2500, L501.4020 #### [facility] Laboratory [address] [place], [address] Hematocrit (Bld) [Volume fraction] 33.1 % Low 37-47 [facility] Comment on above: Performed By: #### L 100.0100, L500.2500, L501.4020 #### [facility] Laboratory [address] [place], [address] Hemoglobin (Bld) [Mass/Vol] 10.0 g/dL Low 12.0-15.0 [facility] Comment on above: Performed By: #### L 100.0100, L500.2500, L501.4020 #### [facility] Laboratory [address] [place], [address] IG% 0.400 Normal 0.0-0.9 [facility] Comment on above: Result Comment: IG% - Immature Granulocytes (promyelocytes, myelocytes and metamyelocytes) > 1% indicates that a LEFT SHIFT is Present. Performed By: #### L 100.0100, L500.2500, L501.4020 #### [facility] Laboratory [address] [place], [address] Lymphocytes/100 WBC (Bld) 18.7 % Low 19-41 [facility] Comment on above: Performed By: #### L 100.0100, L500.2500, L501.4020 #### [facility] Laboratory [address] [place], [address] MCH (RBC) [Entitic mass] 24.8 pg Low 27.0-32.0 [facility] Comment on above: Performed By: #### L 100.0100, L500.2500, L501.4020 #### [facility] Laboratory [address], [address] MCHC (RBC) [Mass/Vol] 30.2 g/dL Low 32-36 [facility] Comment on above: Performed By: #### L 100.0100, L500.2500, L501.4020 #### [facility] Laboratory [address] [place], [address] MCV (RBC) [Entitic vol] 82.1 fL Normal 81-99 [facility] Comment on above: Performed By: #### L 100.0100, L500.2500, L501.4020 #### [facility] Laboratory [address] [place], [address] Monocytes/100 WBC (Bld) 16.8 % High 0-10 [facility] Comment on above: Performed By: #### L 100.0100, L500.2500, L501.4020 #### [facility] Laboratory [address] [place], [address] Neutrophils/100 WBC (Bld) 59.5 % Normal 47-70 [facility] Comment on above: Performed By: #### L 100.0100, L500.2500, L501.4020 #### [facility] Laboratory [address] [place], [address] Nucleated RBC (Bld) [#/Vol] 0 10*3/uL Normal 0-5 [facility] Comment on above: Performed By: #### L 100.0100, L500.2500, L501.4020 #### [facility] Laboratory [address] [place], [address] Platelet mean volume (Bld) [Entitic vol] 9.9 fL Normal 6.2-12.0 [facility] Comment on above: Performed By: #### L 100.0100, L500.2500, L501.4020 #### [facility] Laboratory [address] [place], [address] Platelets (Bld) [#/Vol] 191 10*3/uL Normal 150-450 [facility] Comment on above: Performed By: #### L 100.0100, L500.2500, L501.4020 #### [facility] Laboratory [address] [place], [address] RBC (Bld) [#/Vol] 4.03 10*6/uL Low 4.2-5.4 [facility] Comment on above: Performed By: #### L 100.0100, L500.2500, L501.4020 #### [facility] Laboratory [address] [place], [address] RDW SD 51.1 fl High 35.1-43.9 [facility] Comment on above: Performed By: #### L 100.0100, L500.2500, L501.4020 #### [facility] Laboratory [address] [place], [address] WBC (Bld) [#/Vol] 5.2 10*3/uL Normal 4.4-11.0 [facility] Comment on above: Performed By: #### L 100.0100, L500.2500, L501.4020 #### [facility] Laboratory [address] [place], [address] Chest PA and Lateralon 08-01 Chest PA and Lateral [facility] Imaging Services [address] [place] [address] Chest PA and Lateral MR#: [id number] Acct: [id number] Name: SUSAN SENIOR Rep #: [id number] : 1935 F 88 From: Denis Bowman PCP: Dr. Olga Hurst MD Status: [place] ER Study: Chest PA and Lateral Date of Exam: 08/02/23 Exam# [id number] Ordering Dr: Jyoti Pearson [id number] STUDY: XR Chest 2 Views 08/02/2023 2:56 PM REASON FOR EXAM: Female, 88 years old. cough COMPARISON: 08/01/2022 TECHNIQUE: XR Chest 2 Views FINDINGS: There is no demonstrated pleural abnormality. Enlarged heart size. Normal mediastinum. Normal megan. Prominent appearing increased interstitial lung markings. Normal visualized pulmonary arteries. There is atherosclerotic calcification of the aortic arch with tortuosity. There are diffuse degenerative changes of the visualized thoracic spine. There is degenerative osteoarthritis of the bilateral shoulders. There is a large hiatal hernia composed mostly of the fundus of the stomach. RAD/Chest PA and Lateral IMPRESSION: There are no acute findings. Electronically Signed: Denis Ceballos MD at 15:14 EDT , CC: Dr. Olga Hurst MD; ASHLEIGH Holden Production Planning Manager: Signed Normal [facility] Determination of erythrocyte mean corpuscular volume (MCV)Ordered By: Jyoti Pearson on 08-02-2023 MCV (RBC) [Entitic vol] 82.1 fL 81-99 [facility] Emergency Department Summary on 08-02-2023 Emergency Department Summary [facility] Medical Records Department [address] [place] [address] Emergency Department Summary 08/02/23 MR#: [id number] Acct: [id number] Name: SUSAN SENIOR Rep #: [id number] : 1935 88 From: Chadwick Marin DO PCP: Dr. Olga Hurst MD Status:REG ER Location: ED HPI History of Present Illness Chief Complaint: General Illness Narrative Narrative: 88-year-old female with past medical history of hypertension, hyperlipidemia has had a productive cough for 3 days. This morning her chest felt tight so she went to the [facility] clinic. She states the provider listened to her heart or lungs and prescribed a Z-Mathew for pneumonia. She did not have any imaging done. She took the first dose around noon and an hour later felt lightheaded and had 2 episodes of diarrhea. She is concerned this is a medication allergic reaction since she has a lot of allergies. She denies fever or chills. She states her chest tightness has significantly lessened since this morning. She does not smoke or have a history of asthma or COPD. [facility] Medical History Arthritis Back pain Brain tumor Chest pressure COVID-19 Essential hypertension Hemorrhoids Incontinence Limb weakness Pure hypercholesterolemia Rheumatoid arthritis Shoulder pain Syncope Home Medications aspirin 81 mg chewable tablet 81 mg PO DAILY@0800 heart health 11/10/13 [History Last Taken Unknown] atorvastatin 20 mg tablet 20 mg PO QHS cholesterol 30 days #30 tabs 03/15/18 [History Last Taken Unknown] methotrexate sodium 2.5 mg tablet 25 mg PO QWEEK 07/12/21 [History Last Taken Unknown] calcium citrate 315 mg calcium-vitamin D3 6.25 mcg (250 unit) tablet 2 tab PO BID Supplement Kettle Operator Head 09/16/22 [History Last Taken Unknown] folic acid 1 mg tablet 2 mg PO DAILY 09/16/22 [History Last Taken Unknown] leucovorin calcium 15 mg tablet 15 mg PO QWEEK 09/16/22 [History Last Taken Unknown] lisinopril 10 mg tablet 10 mg PO BID blood pressure #180 tabs 10/01/22 [Rx Last Taken Unknown] loratadine 10 mg tablet 10 mg PO DAILY PRN nasal/sinus congestion/drainage #10 tabs 02/04/23 [Rx Last Taken Unknown] gabapentin 100 mg capsule 100 mg PO BID #60 caps 07/29/23 [Rx Last Taken Unknown] albuterol sulfate 90 mcg/actuation aerosol inhaler (Ventolin HFA) 2 puff inhalation Q4H PRN PRN Wheezing 30 days #6.7 grams 08/02/23 [Rx Last Taken Unknown] azithromycin 250 mg tablet (Zithromax Z-Mathew) See Rx Instructions PO .COMPLEX #6 tabs 08/02/23 [Rx Last Taken Unknown] doxycycline hyclate 100 mg tablet 100 mg PO BID #14 tabs 08/02/23 [Rx Last Taken Unknown] Allergy/AdvReac Type Severity Reaction Status Date / Time amoxicillin [Amoxicillin] Allergy Severe Swelling Verified 08/02/23 14:20 cyclobenzaprine HCl Allergy Severe Swelling Verified 08/02/23 14:20 [From Flexeril] diclofenac sodium Allergy Severe Swelling Verified 08/02/23 14:20 [From Voltaren] dicyclomine Allergy Severe Swelling Verified 08/02/23 14:20 ketoprofen [From Oruvail] Allergy Severe Swelling Verified 08/02/23 14:20 sulfabenzamide Allergy Severe Anaphylaxis Verified 08/02/23 14:20 tramadol Allergy Unknown Unknown Verified 08/02/23 14:20 hydroxyzine HCl [From Atarax] Allergy Swelling Verified 08/02/23 14:20 prednisone Allergy Hives Verified 08/02/23 14:20 pseudoephedrine HCl Allergy Other Verified 08/02/23 14:20 [From Sudafed] cephalexin AdvReac Severe Rash Verified 08/02/23 14:17 clindamycin AdvReac Severe Hives Verified 08/02/23 14:20 codeine AdvReac Severe Upset Verified 08/02/23 14:20 Stomach Family History Mother Heart disease Father Heart disease Other Cancer Surgical History History of appendectomy History of back surgery History of brain surgery History of breast biopsy History of knee replacement procedure of left knee Social History Smoking Status: Never smoker second hand exposure: No alcohol intake: never substance use type: does not use what type of physical activity do you participate in: none wolf/adventism: Faith seatbelt use: always ROS ROS ED ROS Narrative Constitutional: Negative for fever, chills, malaise. CVS: Positive for chest tightness. No palpitations. Respiratory: Positive for cough. Negative for shortness of breath. GI: Positive for diarrhea. Negative for abdominal pain, nausea, vomiting, constipation, melena, hematochezia. EXAM Physical Exam Narrative Exam Narrative: CONST: Patient sitting in no acute distress. EYES: Normal inspection. NECK: Normal inspection. RESP: No respiratory distress, expiratory wheezing in all lung bullard. CVS: Regular rate and rhythm, no murmur, no gallop. A (more content not included)... Normal [facility] Erythrocyte distribution wid th ratioOrdered By: Jyoti Pearson on 08-02-2023 Erythrocyte distribution width (RBC) [Ratio] 17.3 % 11.6-14.6 [facility] Erythrocyte distribution wid th standard deviationOrdered By: Jyoti Pearson on 08-02-2023 Erythrocyte distribution width (RBC) [Entitic vol] 51.1 fL 35.1-43.9 [facility] Hematocrit Auto (Bld) [Volum e fraction]Ordered By: Jyoti Pearson on 08-02-2023 Hematocrit (Bld) [Volume fraction] 33.1 % 37-47 [facility] Immature granulocytes/100 WB C Auto (Bld)Ordered By: Jyoti Pearson on 08-02-2023 Immature granulocytes/100 WBC (Bld) 0.400 % 0.0-0.9 [facility] Comment on above: IG% - Immature Granu locytes (promyelocytes, myelocytes and metamyelocytes) > 1% indicates that a LEFT SHIFT is Present. L501.4020on 08-02-2023 TROPONIN-I HS 7 pg/mL Normal 3.0-54.0 [facility] Comment on above: Order Comment: 'TROP ' Serial specimen #1, #2 or #3: 1 Result Comment: Plea Note: New Test Units and Gender Specific Reference Ranges. For more information see Policy Stat Procedure [place] High Sensitivity Troponin (TNIH) and attachments. Performed By: #### L 100.0100, L500.2500, L501.4020 ####[facility] [id number] [place], [place], [id number] Laboratory - Chemistry and C hemistry - challengeOrdered By: Jyoti Pearson on 08-02-2023 CO2 [Moles/Vol] 26.0 mmol/L 21.0-32.0 [facility] Urea nitrogen/Creatinine [Mass ratio] 26.4 mg/mg 10-20 [facility] Laboratory - Hematology and Cell countsOrdered By: Jyoti Pearson on 08-02-2023 MCH (RBC) [Entitic mass] 24.8 pg 27.0-32.0 [facility] MCHC (RBC) [Mass/Vol] 30.2 g/dL 32-36 [facility] Nucleated RBC/100 WBC (Bld) [Ratio] 0 % 0-5 [facility] Platelet mean volume (Bld) [Entitic vol] 9.9 fL 6.2-12.0 [facility] Platelets (Bld) [#/Vol] 191 10*3/uL 150-450 [facility] Laboratory - Microbiology an d Antimicrobial susceptibilityOrdered By: Jyoti Pearson on 08-02-2023 SARS-CoV-2 (COVID-19) RNA RAVINDER+probe Ql (Unsp spec) [facility] M100.678on 08-02-2023 M100.678 SARS-CoV-2 (COVID 19 ) Negative INFLUENZA A Negative INFLUENZA B Negative RSV PCR Negative Normal [facility] Comment on above: Performed By: #### M 100.678 #### [facility] Laboratory [address], [place], [id number] No Panel InformationOrdered By: Jyoti Pearson on 08-02-2023 Estimated Creatinine Clearance Calc 45.50 ml/min [facility] Estimated GFR (MDRD) Amer 79 mL/min >60 [facility] Comment on above: GFR Calc Estimated GFR (MDRD) Non-Af Amer 66 mL/min >60 [facility] Comment on above: Non- GFR Calc Troponin I High Sensitivity 7 pg/mL 3.0-54.0 [facility] Comment on above: Please Note: New Brayan t Units and Gender Specific Reference Ranges. For more information see Policy Stat Procedure [place] High Sensitivity Troponin (TNIH) and attachments. No Panel Informationon 08-01 POC SARS CoV-2 Antigen Negative [facility] Office Visit Reporton 2023 Office Visit Report [facility] [address] [place] [address] OFFICE VISIT Date of Service: 08/02/23 MR#: [id number] Acct: [id number] Patient: SUSAN SENIOR Rep #: [id number] : 1935 Provider: ASHLEIGH Cooper Age/Sex: 88/F Location: [facility] Status: Signed Intake Vital Signs 02/04/23 08:28 08/02/23 10:54 Height 5 ft 2 in BP 150/68 H Blood Pressure Location Rt brachial Position Sitting Respiration 18 Pulse 77 Pulse Source NIBP Temp 98.1 F Temp Source Temporal Pulse Oximetry (%) 96 Oxygen Delivery Method room air Intake Visit Reasons: Cough Chief Complaint: cough, chest tightness Field Placement Director Required: No Is patient in pain?: No Allergies amoxicillin [Amoxicillin] Allergy (Severe, Verified 08/02/23 10:54) Swelling cyclobenzaprine HCl [From Flexeril] Allergy (Severe, Verified 08/02/23 10:54) Swelling diclofenac sodium [From Voltaren] Allergy (Severe, Verified 08/02/23 10:54) Swelling dicyclomine Allergy (Severe, Verified 08/02/23 10:54) Swelling ketoprofen [From Oruvail] Allergy (Severe, Verified 08/02/23 10:54) Swelling sulfabenzamide Allergy (Severe, Verified 08/02/23 10:54) Anaphylaxis tramadol Allergy (Unknown, Verified 08/02/23 10:54) Unknown hydroxyzine HCl [From Atarax] Allergy (Verified 08/02/23 10:54) Swelling prednisone Allergy (Verified 08/02/23 10:54) Hives pseudoephedrine HCl [From Sudafed] Allergy (Verified 08/02/23 10:54) Other cephalexin Adverse Reaction (Severe, Verified 08/02/23 10:54) Rash clindamycin Adverse Reaction (Severe, Verified 08/02/23 10:54) Hives codeine Adverse Reaction (Severe, Verified 08/02/23 10:54) Upset Stomach Medications aspirin 81 mg chewable tablet 81 mg PO DAILY@0800 [facility] 11/10/13 [History Confirmed 08/02/23] atorvastatin 20 mg tablet 20 mg PO QHS cholesterol 30 days #30 tabs 03/15/18 [History Confirmed 08/02/23] methotrexate sodium 2.5 mg tablet 25 mg PO QWEEK 07/12/21 [History Confirmed 08/02/23] calcium citrate 315 mg calcium-vitamin D3 6.25 mcg (250 unit) tablet 2 tab PO BID Supplement Kettle Operator Head 09/16/22 [History Confirmed 08/02/23] folic acid 1 mg tablet 2 mg PO DAILY 09/16/22 [History Confirmed 08/02/23] leucovorin calcium 15 mg tablet 15 mg PO QWEEK 09/16/22 [History Confirmed 08/02/23] lisinopril 10 mg tablet 10 mg PO BID blood pressure #180 tabs 10/01/22 [Rx Confirmed 08/02/23] loratadine 10 mg tablet 10 mg PO DAILY PRN nasal/sinus congestion/drainage #10 tabs 02/04/23 [Rx Confirmed 08/02/23] gabapentin 100 mg capsule 100 mg PO BID #60 caps 07/29/23 [Rx Confirmed 08/02/23] azithromycin 250 mg tablet (Zithromax Z-Mathew) See Rx Instructions PO .COMPLEX #6 tabs 08/02/23 [Rx Confirmed 08/02/23] Is last menstrual period known: No Post menopausal: Yes Patient : No Nurse's Note: cough, chest tightness x 3 days. 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 FARMER/BA/congestion/fever/ ST PFSH Medical History Arthritis Back pain Brain tumor Chest pressure COVID-19 Essential hypertension Hemorrhoids Incontinence Limb weakness Pure hypercholesterolemia Rheumatoid arthritis Shoulder pain Syncope Surgical History History of appendectomy History of back surgery History of brain surgery History of breast biopsy History of knee replacement procedure of left knee Family History Mother Heart disease Father Heart disease Other Cancer Social History Smoking Status: Never smoker second hand exposure: No alcohol intake: never substance use type: does not use what type of physical activity do you participate in: none wolf/adventism: Faith seatbelt use: always HPI HPI Chief Complaint: cough, chest tightness Details: SUSAN SENIOR, is a 88 F who presents to the office today for chest tightness with cough not feeling very well. Patient states that she has been sick on and off for the last few months. She did have a viral URI recently. She was not treated with this. She states that on Thursday night she started with chest heaviness and a cough. The heaviness is with her cough. She does feel fatigued. She has used [id number] medications with no relief. She does have body aches. She is unsure about fever or chills. ROS Const Constitutional: Positive for other (ROS negative x 6 except what is described above) Exam Const General: cooperative, no acute distress, well developed and ill appearing acutely Orientation: alert, awake and oriented x3 HENMT Head: normocephalic and atraumatic Ears: hearing grossly normal bilaterally and TM's normal bilaterally Nose: nasal discharge purulent Mouth: moist mucous membranes Throat: posterior oropharynx normal and postnasal drainage Eyes (more content not included)... Normal [facility] RBC Auto (Bld) [#/Vol]Ordere d By: Jyoti Pearson on 08-02-2023 RBC (Bld) [#/Vol] 4.03 10*6/uL 4.2-5.4 [facility] Serum or plasma calcium jigar urement (mass/volume)Ordered By: Jyoti Pearson on 08-02-2023 Calcium [Mass/Vol] 8.8 mg/dL 8.5-10.1 [facility] Serum or plasma creatinine m easurement (mass/volume)Ordered By: Jyoti Pearson on 08-02-2023 Creatinine [Mass/Vol] 0.87 mg/dL 0.55-1.02 [facility] Comment on above: The validity of the calculated GFR & GFRAA in patients over 70 years has not been determined. Clinical correlation is essential. Serum or plasma urea nitroge n measurement (mass/volume)Ordered By: Jyoti Pearson on 08-02-2023 Urea nitrogen [Mass/Vol] 23 mg/dL 7-18 [facility] Thin prep Papanicolaou smear with manual screeningOrdered By: Jyoti Pearson on 08-02-2023 Thin prep Papanicolaou smear with manual screening 6 5-15 [facility] Neurology Visit Reporton Neurology Visit Report [facility] [address], [address] [place] [address] OFFICE VISIT Date of Service: 07/29/23 MR#: [id number] Acct: [id number] Name: SUSAN SENIOR Rep #: [id number] : 1935 Provider: Dr. Jb carey MD Age/Sex: 88/F Location: [facility] Status: Signed with Addenda ADDENDUM by Dr. Jb Joiner MD on 07/29/23 at 0915 Assessment and Plan Assessment and Plan (1) Carpal tunnel syndrome, right: Status: Acute (2) Polyneuropathy: Status: Chronic Orders: Orders NCS and/or EMG Patient Today G56.01 - Carpal tunnel syndrome, right upper limb, R20.2 - Paresthesia of skin Medications: Refilled gabapentin 100 mg PO BID 60 caps 5RF Comments Comments: Attention component engineer: Remove sinusitis from billing and coding for 07/29/2023 office visit. 07/29/23 0915 Date Jb Joiner MD cc: * Signed Intake Vital Signs 02/04/23 08:28 07/29/23 08:19 Height 5 ft 2 in Weight: 168 lb 3 oz 168 lb 8 oz BMI 30.7 BP 120/64 140/78 H Blood Pressure Location Lt brachial Lt brachial Position Sitting Sitting Respiration 17 14 Pulse 82 76 Pulse Source Monitor Monitor Temp 98.6 F 97.8 F Temp Source Temporal Temporal Pulse Oximetry (%) 99 99 Oxygen Delivery Method room air room air Intake Visit Reasons: 6 M FU Chief Complaint: Accompanied by: [id number]-Zam Allergies amoxicillin [Amoxicillin] Allergy (Severe, Verified 07/29/23 08:20) Swelling cyclobenzaprine HCl [From Flexeril] Allergy (Severe, Verified 07/29/23 08:20) Swelling diclofenac sodium [From Voltaren] Allergy (Severe, Verified 07/29/23 08:20) Swelling dicyclomine Allergy (Severe, Verified 07/29/23 08:20) Swelling ketoprofen [From Oruvail] Allergy (Severe, Verified 07/29/23 08:20) Swelling sulfabenzamide Allergy (Severe, Verified 07/29/23 08:20) Anaphylaxis tramadol Allergy (Unknown, Verified 07/29/23 08:20) Unknown hydroxyzine HCl [From Atarax] Allergy (Verified 07/29/23 08:20) Swelling prednisone Allergy (Verified 07/29/23 08:20) Hives pseudoephedrine HCl [From Sudafed] Allergy (Verified 07/29/23 08:20) Other cephalexin Adverse Reaction (Severe, Verified 07/29/23 08:20) Rash clindamycin Adverse Reaction (Severe, Verified 07/29/23 08:20) Hives codeine Adverse Reaction (Severe, Verified 07/29/23 08:20) Upset Stomach PFSH Medical History Arthritis Back pain Brain tumor Chest pressure COVID-19 Essential hypertension Hemorrhoids Incontinence Limb weakness Pure hypercholesterolemia Rheumatoid arthritis Shoulder pain Syncope Surgical History History of appendectomy History of back surgery History of brain surgery History of breast biopsy History of knee replacement procedure of left knee Family History Mother Heart disease Father Heart disease Other Cancer Social History Smoking Status: Never smoker second hand exposure: No alcohol intake: never substance use type: does not use what type of physical activity do you participate in: none wolf/adventism: Faith seatbelt use: always HPI HPI Chief Complaint: Details: Interim History: Susan returns for follow-up visit. She has a history of hypertension and hyperlipidemia and borderline diabetes mellitus. In 2009, she had a single seizure with associated loss of c onsciousness and on evaluation was found to have an intracranial tumor which was resected in 2010 (the patient does not recall the pathology of the tumor and medical records regarding this are presently not available; the patient stated the tumor was benign). In August 2021, she had viral cold symptoms manifesting with fever and nasal discharge. Following the onset of her cold symptoms she developed right-sided head paresthesias that extended from the scalp to the jaw and her paresthesias have persisted since that time. She describes the paresthesias as a sensation of water running down her face. She did not have any facial weakness. She denied having speech difficulty or vision change. She has chronic bilateral hearing loss. She has been experiencing mild right frontal headaches that have been occurring for decades; these had occurred 1 or 2 days/month in years past. Following the onset of her right-sided facial paresthesias, she has experienced almost daily right frontal mild headaches however these subsequently diminished in frequency to about 1 day/week. Her headaches are alleviated with acetaminophen. She takes gabapentin for her facial paresthesias and this has been of some benefit. She takes gabapentin 100 mg every evening (a twice a day dose caused d (more content not included)... Normal [facility] Absolute lymphocyte countOrd ered By: Sherin Patel on 05-13-2023 Lymphocytes Auto (Unsp spec) [#/Vol] 1.02 10*3/uL 0.83-4.51 [facility] Automated lymphocyte count a s percentage of total leukocytesOrdered By: Sherni Patel on 05-13-2023 Lymphocytes/100 WBC Auto (Unsp spec) 22.5 % 19-41 [facility] Basophil percentageOrdered B y: Sherin Patel on 05-13-2023 Basophils/100 WBC (Bld) 1.5 % 0-1 [facility] Bilirubin [Mass/Vol] 0.60 mg/dL 0.20-1.00 [facility] Comment on above: For patients on eltr ombopag therapy, use of Dimension [place] TBIL is not recommended. Chloride [Moles/Vol] 109 mmol/L 98-107 [facility] Eosinophils/100 WBC (Bld) 5.5 % 0-5 [facility] Glucose [Mass/Vol] 104 mg/dL 74-106 [facility] Comment on above: Fasting Glucose resu lt from 100 to 125 mg/dL suggests IMPAIRED HOMEOSTASIS per A.D.A. criteria. Hemoglobin (Bld) [Mass/Vol] 10.4 g/dL 12.0-15.0 [facility] Monocytes/100 WBC (Bld) 20.1 % 0-10 [facility] Neutrophils (Bld) [#/Vol] 2.3 10*3/uL 2.0-7.7 [facility] Neutrophils/100 WBC (Bld) 50.2 % 47-70 [facility] Potassium [Moles/Vol] 4.1 mmol/L 3.5-5.1 [facility] Protein [Mass/Vol] 6.0 g/dL 6.4-8.2 [facility] Sodium [Moles/Vol] 139 mmol/L 136-145 [facility] WBC (Bld) [#/Vol] 4.5 10*3/uL 4.4-11.0 [facility] Determination of erythrocyte mean corpuscular volume (MCV)Ordered By: Sherin Patel on 05-13-2023 MCV (RBC) [Entitic vol] 84.0 fL 81-99 [facility] Erythrocyte distribution wid th ratioOrdered By: Sherin Patel on 05-13-2023 Erythrocyte distribution width (RBC) [Ratio] 17.2 % 11.6-14.6 [facility] Erythrocyte distribution wid th standard deviationOrdered By: [facility] Jorge on 05-13-2023 Erythrocyte distribution width (RBC) [Entitic vol] 52.1 fL 35.1-43.9 [facility] Hematocrit Auto (Bld) [Volum e fraction]Ordered By: [facility] Jorge on 05-13-2023 Hematocrit (Bld) [Volume fraction] 34.6 % 37-47 [facility] Immature granulocytes/100 WB C Auto (Bld)Ordered By: [facility] Jorge on 05-13-2023 Immature granulocytes/100 WBC (Bld) 0.200 % 0.0-0.9 [facility] Comment on above: IG% - Immature Granu locytes (promyelocytes, myelocytes and metamyelocytes) > 1% indicates that a LEFT SHIFT is Present. Laboratory - Chemistry and C hemistry - challengeOrdered By: Sherin Patel on 05-13-2023 Albumin/Globulin [Mass ratio] 0.9 {ratio} 0.9-2.4 [facility] ALP [Catalytic activity/Vol] 70 U/L 45-117 [facility] ALT [Catalytic activity/Vol] 15 U/L 13-56 [facility] CO2 [Moles/Vol] 25.0 mmol/L 21.0-32.0 [facility] Globulin (S) [Mass/Vol] 3.1 g/dL 2.2-4.2 [facility] Urea nitrogen/Creatinine [Mass ratio] 24.2 mg/mg 10-20 [facility] Laboratory - Hematology and Cell countsOrdered By: Sherin Patel on 05-13-2023 MCH (RBC) [Entitic mass] 25.2 pg 27.0-32.0 [facility] MCHC (RBC) [Mass/Vol] 30.1 g/dL 32-36 [facility] Nucleated RBC/100 WBC (Bld) [Ratio] 0 % 0-5 [facility] Platelets (Bld) [#/Vol] 190 10*3/uL 150-450 [facility] No Panel InformationOrdered By: Sherin Patel on 05-13-2023 Estimated GFR (MDRD) Amer 84 mL/min >60 [facility] Comment on above: GFR Calc Estimated GFR (MDRD) Non-Af Amer 70 mL/min >60 [facility] Comment on above: Non- GFR Calc Platelet mean volume Henri-Ec ker (Bld) [Entitic vol]Ordered By: Sherin Patel on 05-13-2023 Platelet mean volume (Bld) [Entitic vol] 10.0 fL 6.2-12.0 [facility] RBC Auto (Bld) [#/Vol]Ordere d By: Sherin Patel on 05-13-2023 RBC (Bld) [#/Vol] 4.12 10*6/uL 4.2-5.4 [facility] Serum or plasma calcium jigar urement (mass/volume)Ordered By: Sherin Patel on 05-13-2023 Calcium [Mass/Vol] 9.1 mg/dL 8.5-10.1 [facility] Serum or plasma creatinine m easurement (mass/volume)Ordered By: Sherin Patel on 05-13-2023 Creatinine [Mass/Vol] 0.83 mg/dL 0.55-1.02 [facility] Comment on above: The validity of the calculated GFR & GFRAA in patients over 70 years has not been determined. Clinical correlation is essential. Serum or plasma urea nitroge n measurement (mass/volume)Ordered By: Sherin Patel on 05-13-2023 Urea nitrogen [Mass/Vol] 20 mg/dL 7-18 [facility] Thin prep Papanicolaou smear with manual screeningOrdered By: Sherin Patel on 05-13-2023 Thin prep Papanicolaou smear with manual screening 2.9 g/dL 3.2-5.0 [facility] Thin prep Papanicolaou smear with manual screening 19 U/L 15-37 [facility] Thin prep Papanicolaou smear with manual screening 5 5-15 [facility] Absolute lymphocyte countOrd ered By: Sherin Patel on 01-26-2023 Lymphocytes Auto (Unsp spec) [#/Vol] 0.98 10*3/uL 0.83-4.51 [facility] Basophil percentageOrdered B y: Sherin Patel on 01-26-2023 Basophils/100 WBC (Bld) 1.4 % 0-1 [facility] Bilirubin [Mass/Vol] 0.60 mg/dL 0.20-1.00 [facility] Comment on above: For patients on eltr ombopag therapy, use of Dimension [place] TBIL is not recommended. Chloride [Moles/Vol] 109 mmol/L 98-107 [facility] Eosinophils/100 WBC (Bld) 4.1 % 0-5 [facility] Glucose [Mass/Vol] 107 mg/dL 74-106 [facility] Comment on above: Fasting Glucose resu lt from 100 to 125 mg/dL suggests IMPAIRED HOMEOSTASIS per A.D.A. criteria. Neutrophils (Bld) [#/Vol] 1.9 10*3/uL 2.0-7.7 [facility] Neutrophils/100 WBC (Bld) 51.3 % 47-70 [facility] Potassium [Moles/Vol] 4.1 mmol/L 3.5-5.1 [facility] Protein [Mass/Vol] 6.5 g/dL 6.4-8.2 [facility] Sodium [Moles/Vol] 141 mmol/L 136-145 [facility] WBC (Bld) [#/Vol] 3.7 10*3/uL 4.4-11.0 [facility] Blood erythrocytes count (nu mber/volume)Ordered By: Sherin Patel on 01-26-2023 RBC (Bld) [#/Vol] 3.91 10*6/uL 4.2-5.4 [facility] Blood hemoglobin measurement (mass/volume)Ordered By: Sherin Patel on 01-26-2023 Hemoglobin (Bld) [Mass/Vol] 10.7 g/dL 12.0-15.0 [facility] Blood lymphocytes/100 leukoc ytesOrdered By: Sherin Patel on 01-26-2023 Lymphocytes/100 WBC (Bld) 26.8 % 19-41 [facility] Blood monocytes/100 leukocyt esOrdered By: Sherin Patel on 01-26-2023 Monocytes/100 WBC (Bld) 16.1 % 0-10 [facility] Blood platelet mean volumeOr dered By: Sherin Patel on 01-26-2023 Platelet mean volume (Bld) [Entitic vol] 10.5 fL 6.2-12.0 [facility] Determination of erythrocyte mean corpuscular volume (MCV)Ordered By: Sherin Patel on 01-26-2023 MCV (RBC) [Entitic vol] 88.2 fL 81-99 [facility] Hematocrit Auto (Bld) [Volum e fraction]Ordered By: Sherin Patel on 01-26-2023 Hematocrit (Bld) [Volume fraction] 34.5 % 37-47 [facility] Laboratory - Chemistry and C hemistry - challengeOrdered By: Sherin Patel on 01-26-2023 ALP [Catalytic activity/Vol] 71 U/L 45-117 [facility] ALT [Catalytic activity/Vol] 19 U/L 13-56 [facility] CO2 [Moles/Vol] 24.0 mmol/L 21.0-32.0 [facility] Globulin (S) [Mass/Vol] 3.4 g/dL 2.2-4.2 [facility] Urea nitrogen/Creatinine [Mass ratio] 39.8 mg/mg 10-20 [facility] Laboratory - Hematology and Cell countsOrdered By: Sherin Patel on 01-26-2023 Erythrocyte distribution width (RBC) [Entitic vol] 52.3 fL 35.1-43.9 [facility] Erythrocyte distribution width (RBC) [Ratio] 16.4 % 11.6-14.6 [facility] Immature granulocytes/100 WBC (Bld) 0.300 % 0.0-0.9 [facility] Comment on above: IG% - Immature Granu locytes (promyelocytes, myelocytes and metamyelocytes) > 1% indicates that a LEFT SHIFT is Present. MCH (RBC) [Entitic mass] 27.4 pg 27.0-32.0 [facility] Nucleated RBC/100 WBC (Bld) [Ratio] 0 % 0-5 [facility] MCHC Auto (RBC) [Mass/Vol]Or dered By: Sherin Patel on 01-26-2023 MCHC (RBC) [Mass/Vol] 31.0 g/dL 32-36 [facility] No Panel InformationOrdered By: Sherin Patel on 01-26-2023 Estimated GFR (MDRD) Amer 102 mL/min >60 [facility] Comment on above: GFR Calc Estimated GFR (MDRD) Non-Af Amer 84 mL/min >60 [facility] Comment on above: Non- GFR Calc Platelets bldOrdered By: Adamaris Patel on 01-26-2023 Platelets (Bld) [#/Vol] 209 10*3/uL 150-450 [facility] Serum or plasma albumin jigar urement (mass/volume)Ordered By: Sherin Patel on 01-26-2023 Albumin [Mass/Vol] 3.1 g/dL 3.2-5.0 [facility] Serum or plasma albumin/glob ulin mass ratioOrdered By: Sherin Patel on 01-26-2023 Albumin/Globulin [Mass ratio] 0.9 {ratio} 0.9-2.4 [facility] Serum or plasma calcium jigar urement (mass/volume)Ordered By: Sherin Patel on 01-26-2023 Calcium [Mass/Vol] 8.9 mg/dL 8.5-10.1 [facility] Serum or plasma creatinine m easurement (mass/volume)Ordered By: Sherin Patel on 01-26-2023 Creatinine [Mass/Vol] 0.70 mg/dL 0.55-1.02 [facility] Comment on above: The validity of the calculated GFR & GFRAA in patients over 70 years has not been determined. Clinical correlation is essential. Serum or plasma urea nitroge n measurement (mass/volume)Ordered By: Sherin Patel on 01-26-2023 Urea nitrogen [Mass/Vol] 28 mg/dL 7-18 [facility] Thin prep Papanicolaou smear with manual screeningOrdered By: Sherin Patel on 01-26-2023 Thin prep Papanicolaou smear with manual screening 21 U/L 15-37 [facility] Thin prep Papanicolaou smear with manual screening 8 5-15 [facility] Culture, urineOrdered By: Alejandra uHrst on 01-23-2023 Bacteria identified Cx Nom (U) Negative [facility] Absolute lymphocyte countOrd ered By: Dr. Patel on 08-28-2022 Lymphocytes Auto (Unsp spec) [#/Vol] 1.03 10*3/uL 0.83-4.51 [facility] Basophil percentageOrdered B y: Dr. Patel on 08-28-2022 Basophils/100 WBC (Bld) 0.1 % 0-1 [facility] Bilirubin [Mass/Vol] 0.60 mg/dL 0.20-1.00 [facility] Comment on above: For patients on eltr ombopag therapy, use of Dimension [place] TBIL is not recommended. Chloride [Moles/Vol] 107 mmol/L 98-107 [facility] Eosinophils/100 WBC (Bld) 0.0 % 0-5 [facility] Glucose [Mass/Vol] 103 mg/dL 74-106 [facility] Comment on above: Fasting Glucose resu lt from 100 to 125 mg/dL suggests IMPAIRED HOMEOSTASIS per A.D.A. criteria. Neutrophils (Bld) [#/Vol] 7.7 10*3/uL 2.0-7.7 [facility] Neutrophils/100 WBC (Bld) 79.2 % 47-70 [facility] Potassium [Moles/Vol] 4.2 mmol/L 3.5-5.1 [facility] Protein [Mass/Vol] 6.0 g/dL 6.4-8.2 [facility] Sodium [Moles/Vol] 141 mmol/L 136-145 [facility] WBC (Bld) [#/Vol] 9.7 10*3/uL 4.4-11.0 [facility] Blood erythrocytes count (nu mber/volume)Ordered By: Dr. Patel on 08-28-2022 RBC (Bld) [#/Vol] 4.01 10*6/uL 4.2-5.4 [facility] Blood hemoglobin measurement (mass/volume)Ordered By: Dr. Patel on 08-28-2022 Hemoglobin (Bld) [Mass/Vol] 11.1 g/dL 12.0-15.0 [facility] Blood lymphocytes/100 leukoc ytesOrdered By: Dr. Patel on 08-28-2022 Lymphocytes/100 WBC (Bld) 10.6 % 19-41 [facility] Blood monocytes/100 leukocyt esOrdered By: Dr. Patel on 08-28-2022 Monocytes/100 WBC (Bld) 9.7 % 0-10 [facility] Blood platelet mean volumeOr dered By: Dr. Patel on 08-28-2022 Platelet mean volume (Bld) [Entitic vol] 10.3 fL 6.2-12.0 [facility] Determination of erythrocyte mean corpuscular volume (MCV)Ordered By: Dr. Patel on 08-28-2022 MCV (RBC) [Entitic vol] 85.5 fL 81-99 [facility] Hematocrit Auto (Bld) [Volum e fraction]Ordered By: Dr. Patel on 08-28-2022 Hematocrit (Bld) [Volume fraction] 34.3 % 37-47 [facility] Laboratory - Chemistry and C hemistry - challengeOrdered By: Dr. Patel on 08-28-2022 ALP [Catalytic activity/Vol] 68 U/L 45-117 [facility] ALT [Catalytic activity/Vol] 24 U/L 13-56 [facility] CO2 [Moles/Vol] 24.0 mmol/L 21.0-32.0 [facility] Globulin (S) [Mass/Vol] 2.9 g/dL 2.2-4.2 [facility] Urea nitrogen/Creatinine [Mass ratio] 55.5 mg/mg 10-20 [facility] Laboratory - Hematology and Cell countsOrdered By: Dr. Patel on 08-28-2022 Erythrocyte distribution width (RBC) [Entitic vol] 52.6 fL 35.1-43.9 [facility] Erythrocyte distribution width (RBC) [Ratio] 17.1 % 11.6-14.6 [facility] Immature granulocytes/100 WBC (Bld) 0.400 % 0.0-0.9 [facility] Comment on above: IG% - Immature Granu locytes (promyelocytes, myelocytes and metamyelocytes) > 1% indicates that a LEFT SHIFT is Present. MCH (RBC) [Entitic mass] 27.7 pg 27.0-32.0 [facility] Nucleated RBC/100 WBC (Bld) [Ratio] 0 % 0-5 [facility] MCHC Auto (RBC) [Mass/Vol]Or dered By: Dr. Patel on 08-28-2022 MCHC (RBC) [Mass/Vol] 32.4 g/dL 32-36 [facility] No Panel InformationOrdered By: Dr. Patel on 08-28-2022 Estimated GFR (MDRD) Amer 105 mL/min >60 [facility] Comment on above: GFR Calc Estimated GFR (MDRD) Non-Af Amer 87 mL/min >60 [facility] Comment on above: Non- GFR Calc Platelets bldOrdered By: Dr. Patel on 08-28-2022 Platelets (Bld) [#/Vol] 217 10*3/uL 150-450 [facility] Serum or plasma albumin jigar urement (mass/volume)Ordered By: Dr. Patel on 08-28-2022 Albumin [Mass/Vol] 3.1 g/dL 3.2-5.0 [facility] Serum or plasma albumin/glob ulin mass ratioOrdered By: Dr. Patel on 08-28-2022 Albumin/Globulin [Mass ratio] 1.1 {ratio} 0.9-2.4 [facility] Serum or plasma calcium jigar urement (mass/volume)Ordered By: Dr. Patel on 08-28-2022 Calcium [Mass/Vol] 9.0 mg/dL 8.5-10.1 [facility] Serum or plasma creatinine m easurement (mass/volume)Ordered By: Dr. Patel on 08-28-2022 Creatinine [Mass/Vol] 0.68 mg/dL 0.55-1.02 [facility] Comment on above: The validity of the calculated GFR & GFRAA in patients over 70 years has not been determined. Clinical correlation is essential. Serum or plasma urea nitroge n measurement (mass/volume)Ordered By: Dr. Patel on 08-28-2022 Urea nitrogen [Mass/Vol] 38 mg/dL 7-18 [facility] Thin prep Papanicolaou smear with manual screeningOrdered By: Dr. Patel on 08-28-2022 Thin prep Papanicolaou smear with manual screening 21 U/L 15-37 [facility] Thin prep Papanicolaou smear with manual screening 10 5-15 [facility] No Panel Informationon 07-31 POC SARS CoV-2 Antigen [address] [facility] Albumin Elph [Mass/Vol]Order ed By: Dr. Joiner on 06-10-2022 Albumin [Mass/Vol] 3.4 g/dL 2.9-4.4 [facility] Basophil percentageOrdered B y: Dr. Joiner on 06-10-2022 Basophil percentage Comment . [facility] Comment on above: No monoclonality det ected.Performed at: [facility] [id number] Director: Zeke Schultz PhD, Phone: [phone] Interpretation of serum or p lasma protein pattern by immunofixation (narrative resultOrdered By: Dr. Joiner on 06-10-2022 Protein Fractions Immunofixation Julius [Interp] See comment [facility] Comment on above: NOT OBSERVED No Panel InformationOrdered By: Dr. Joiner on 06-10-2022 Addendum Document Comment . [facility] Comment on above: Protein electrophore sis scan will follow via computer,mail, or formulation scientist delivery. Serum [id number] measu rement by electrophoresisOrdered By: Dr. Joiner on 06-10-2022 Alpha 1 globulin Elph [Mass/Vol] 0.2 g/dL 0.0-0.4 [facility] Alpha 1 globulin Elph [Mass/Vol] 0.9 g/dL 0.4-1.0 [facility] Serum globulin measurement ( mass/volume)Ordered By: Dr. Joiner on 06-10-2022 Globulin (S) [Mass/Vol] 2.9 g/dL 2.2-3.9 [facility] Serum or plasma IgA measurem ent (mass/volume)Ordered By: Dr. Joiner on 06-10-2022 IgA [Mass/Vol] 127 mg/dL 64-422 [facility] Serum or plasma IgG measurem ent (mass/volume)Ordered By: Dr. Joiner on 06-10-2022 IgG [Mass/Vol] 899 mg/dL [phone] [facility] Serum or plasma IgM measurem ent (mass/volume)Ordered By: Dr. Joiner on 06-10-2022 IgM [Mass/Vol] 167 mg/dL 26-217 [facility] Serum or plasma beta globuli n measurement by electrophoresis (mass/volume)Ordered By: Dr. Joiner on 06-10-2022 Beta globulin Elph [Mass/Vol] 0.9 g/dL 0.7-1.3 [facility] Serum or plasma gamma globul in measurement by electrophoresis (mass/volume)Ordered By: Dr. Joiner on 06-10-2022 Gamma globulin Elph [Mass/Vol] 0.9 g/dL 0.4-1.8 [facility] Serum or plasma immunoelectr ophoresis interpretation (nominal result)Ordered By: Dr. Joiner on 06-10-2022 Interpretation IEP [Interp] Comment . [facility] Comment on above: No monoclonality det ected. Thin prep Papanicolaou smear with manual screeningOrdered By: Dr. Joiner on 06-10-2022 Thin prep Papanicolaou smear with manual screening 1.2 0.7-1.7 [facility] Total protein bloodOrdered B y: Dr. Joiner on 06-10-2022 Protein [Mass/Vol] 6.3 g/dL 6.0-8.5 [facility] Absolute lymphocyte countOrd ered By: Dr. Patel on 05-30-2022 Lymphocytes Auto (Unsp spec) [#/Vol] 1.65 10*3/uL 0.83-4.51 [facility] Basophil percentageOrdered B y: Dr. Patel on 05-30-2022 Basophils/100 WBC (Bld) 1.0 % 0-1 [facility] Bilirubin [Mass/Vol] 0.70 mg/dL 0.20-1.00 [facility] Comment on above: For patients on eltr ombopag therapy, use of Dimension [place] TBIL is not recommended. Chloride [Moles/Vol] 106 mmol/L 98-107 [facility] Eosinophils/100 WBC (Bld) 3.9 % 0-5 [facility] Glucose [Mass/Vol] 114 mg/dL 74-106 [facility] Comment on above: Fasting Glucose resu lt from 100 to 125 mg/dL suggests IMPAIRED HOMEOSTASIS per A.D.A. criteria. Neutrophils (Bld) [#/Vol] 2.5 10*3/uL 2.0-7.7 [facility] Neutrophils/100 WBC (Bld) 47.7 % 47-70 [facility] Potassium [Moles/Vol] 4.1 mmol/L 3.5-5.1 [facility] Protein [Mass/Vol] 6.2 g/dL 6.4-8.2 [facility] Sodium [Moles/Vol] 142 mmol/L 136-145 [facility] WBC (Bld) [#/Vol] 5.1 10*3/uL 4.4-11.0 [facility] Blood erythrocytes count (nu mber/volume)Ordered By: Dr. Patel on 05-30-2022 RBC (Bld) [#/Vol] 4.05 10*6/uL 4.2-5.4 [facility] Blood hemoglobin measurement (mass/volume)Ordered By: Dr. Patel on 05-30-2022 Hemoglobin (Bld) [Mass/Vol] 11.5 g/dL 12.0-15.0 [facility] Blood lymphocytes/100 leukoc ytesOrdered By: Dr. Patel on 05-30-2022 Lymphocytes/100 WBC (Bld) 32.2 % 19-41 [facility] Blood monocytes/100 leukocyt esOrdered By: Dr. Patel on 05-30-2022 Monocytes/100 WBC (Bld) 14.8 % 0-10 [facility] Blood platelet mean volumeOr dered By: Dr. Patel on 05-30-2022 Platelet mean volume (Bld) [Entitic vol] 10.2 fL 6.2-12.0 [facility] Determination of erythrocyte mean corpuscular volume (MCV)Ordered By: Dr. Patel on 05-30-2022 MCV (RBC) [Entitic vol] 90.4 fL 81-99 [facility] Hematocrit Auto (Bld) [Volum e fraction]Ordered By: Dr. Patel on 05-30-2022 Hematocrit (Bld) [Volume fraction] 36.6 % 37-47 [facility] Laboratory - Chemistry and C hemistry - challengeOrdered By: Dr. Patel on 05-30-2022 ALP [Catalytic activity/Vol] 67 U/L 45-117 [facility] ALT [Catalytic activity/Vol] 17 U/L 13-56 [facility] CO2 [Moles/Vol] 25.0 mmol/L 21.0-32.0 [facility] Globulin (S) [Mass/Vol] 3.0 g/dL 2.2-4.2 [facility] Urea nitrogen/Creatinine [Mass ratio] 36.1 mg/mg 10-20 [facility] Laboratory - Hematology and Cell countsOrdered By: Dr. Patel on 05-30-2022 Erythrocyte distribution width (RBC) [Entitic vol] 49.0 fL 35.1-43.9 [facility] Erythrocyte distribution width (RBC) [Ratio] 14.9 % 11.6-14.6 [facility] Immature granulocytes/100 WBC (Bld) 0.400 % 0.0-0.9 [facility] Comment on above: IG% - Immature Granu locytes (promyelocytes, myelocytes and metamyelocytes) > 1% indicates that a LEFT SHIFT is Present. MCH (RBC) [Entitic mass] 28.4 pg 27.0-32.0 [facility] Nucleated RBC/100 WBC (Bld) [Ratio] 0 % 0-5 [facility] MCHC Auto (RBC) [Mass/Vol]Or dered By: Dr. Patel on 05-30-2022 MCHC (RBC) [Mass/Vol] 31.4 g/dL 32-36 [facility] No Panel InformationOrdered By: Dr. Patel on 05-30-2022 Estimated GFR (MDRD) Amer 84 mL/min >60 [facility] Comment on above: GFR Calc Estimated GFR (MDRD) Non-Af Amer 69 mL/min >60 [facility] Comment on above: Non- GFR Calc Platelets bldOrdered By: Dr. Patel on 05-30-2022 Platelets (Bld) [#/Vol] 192 10*3/uL 150-450 [facility] Serum or plasma albumin jigar urement (mass/volume)Ordered By: Dr. Patel on 05-30-2022 Albumin [Mass/Vol] 3.2 g/dL 3.2-5.0 [facility] Serum or plasma albumin/glob ulin mass ratioOrdered By: Dr. Patel on 05-30-2022 Albumin/Globulin [Mass ratio] 1.1 {ratio} 0.9-2.4 [facility] Serum or plasma calcium jigar urement (mass/volume)Ordered By: Dr. Patel on 05-30-2022 Calcium [Mass/Vol] 9.4 mg/dL 8.5-10.1 [facility] Serum or plasma creatinine m easurement (mass/volume)Ordered By: Dr. Patel on 05-30-2022 Creatinine [Mass/Vol] 0.83 mg/dL 0.55-1.02 [facility] Comment on above: The validity of the calculated GFR & GFRAA in patients over 70 years has not been determined. Clinical correlation is essential. Serum or plasma urea nitroge n measurement (mass/volume)Ordered By: Dr. Patel on 05-30-2022 Urea nitrogen [Mass/Vol] 30 mg/dL 7-18 [facility] Thin prep Papanicolaou smear with manual screeningOrdered By: Dr. Patel on 05-30-2022 Thin prep Papanicolaou smear with manual screening 23 U/L 15-37 [facility] Thin prep Papanicolaou smear with manual screening 11 5-15 [facility] Absolute lymphocyte countOrd ered By: Dr. Patel on 02-17-2022 Lymphocytes Auto (Unsp spec) [#/Vol] 1.82 10*3/uL 0.83-4.51 [facility] Basophil percentageOrdered B y: Dr. Patel on 02-17-2022 Basophils/100 WBC (Bld) 0.7 % 0-1 [facility] Bilirubin [Mass/Vol] 0.70 mg/dL 0.20-1.00 [facility] Comment on above: For patients on eltr ombopag therapy, use of Dimension [place] TBIL is not recommended. Chloride [Moles/Vol] 104 mmol/L 98-107 [facility] Eosinophils/100 WBC (Bld) 1.3 % 0-5 [facility] Glucose [Mass/Vol] 111 mg/dL 74-106 [facility] Comment on above: Fasting Glucose resu lt from 100 to 125 mg/dL suggests IMPAIRED HOMEOSTASIS per A.D.A. criteria. Neutrophils (Bld) [#/Vol] 5.5 10*3/uL 2.0-7.7 [facility] Neutrophils/100 WBC (Bld) 64.9 % 47-70 [facility] Potassium [Moles/Vol] 3.8 mmol/L 3.5-5.1 [facility] Protein [Mass/Vol] 6.9 g/dL 6.4-8.2 [facility] Sodium [Moles/Vol] 137 mmol/L 136-145 [facility] WBC (Bld) [#/Vol] 8.4 10*3/uL 4.4-11.0 [facility] Blood erythrocytes count (nu mber/volume)Ordered By: Dr. Patel on 02-17-2022 RBC (Bld) [#/Vol] 4.25 10*6/uL 4.2-5.4 [facility] Blood hemoglobin measurement (mass/volume)Ordered By: Dr. Patel on 02-17-2022 Hemoglobin (Bld) [Mass/Vol] 12.6 g/dL 12.0-15.0 [facility] Blood lymphocytes/100 leukoc ytesOrdered By: Dr. Patel on 10-24-2022 Lymphocytes/100 WBC (Bld) 21.6 % 19-41 [facility] Blood monocytes/100 leukocyt esOrdered By: Dr. Patel on 02-17-2022 Monocytes/100 WBC (Bld) 11.3 % 0-10 [facility] Blood platelet mean volumeOr dered By: Dr. Patel on 02-17-2022 Platelet mean volume (Bld) [Entitic vol] 10.0 fL 6.2-12.0 [facility] Determination of erythrocyte mean corpuscular volume (MCV)Ordered By: Dr. Patel on 02-17-2022 MCV (RBC) [Entitic vol] 89.6 fL 81-99 [facility] Hematocrit Auto (Bld) [Volum e fraction]Ordered By: Dr. Patel on 02-17-2022 Hematocrit (Bld) [Volume fraction] 38.1 % 37-47 [facility] Laboratory - Chemistry and C hemistry - challengeOrdered By: Dr. Patel on 02-17-2022 ALP [Catalytic activity/Vol] 79 U/L 45-117 [facility] ALT [Catalytic activity/Vol] 23 U/L 13-56 [facility] CO2 [Moles/Vol] 24.0 mmol/L 21.0-32.0 [facility] Globulin (S) [Mass/Vol] 3.3 g/dL 2.2-4.2 [facility] Urea nitrogen/Creatinine [Mass ratio] 40.8 mg/mg 10-20 [facility] Laboratory - Chemistry and C hemistry - challengeOrdered By: Dr. Joiner on 02-17-2022 Cobalamin (Vitamin B12) [Mass/Vol] 611 pg/mL 211-911 [facility] Laboratory - Hematology and Cell countsOrdered By: Dr. Patel on 02-17-2022 Erythrocyte distribution width (RBC) [Entitic vol] 48.1 fL 35.1-43.9 [facility] Erythrocyte distribution width (RBC) [Ratio] 15.1 % 11.6-14.6 [facility] Immature granulocytes/100 WBC (Bld) 0.200 % 0.0-0.9 [facility] Comment on above: IG% - Immature Granu locytes (promyelocytes, myelocytes and metamyelocytes) > 1% indicates that a LEFT SHIFT is Present. MCH (RBC) [Entitic mass] 29.6 pg 27.0-32.0 [facility] Nucleated RBC/100 WBC (Bld) [Ratio] 0 % 0-5 [facility] MCHC Auto (RBC) [Mass/Vol]Or dered By: Dr. Patel on 02-17-2022 MCHC (RBC) [Mass/Vol] 33.1 g/dL 32-36 [facility] No Panel InformationOrdered By: Dr. Patel on 02-17-2022 Estimated GFR (MDRD) Amer 84 mL/min >60 [facility] Comment on above: GFR Calc Estimated GFR (MDRD) Non-Af Amer 69 mL/min >60 [facility] Comment on above: Non- GFR Calc No Panel InformationOrdered By: Dr. Joiner on 02-17-2022 Free Lambda Light Chains, Quant 18.1 mg/L 5.7-26.3 [facility] Thyroid Stimulating Hormone (TSH) 1.31 uIU/mL 0.358-3.74 [facility] Whole Blood Vitamin B1 Level 199.6 nmol/L 66.5-200.0 [facility] Comment on above: Performed at: [address] [id number] Director: Zeke Schultz PhD, Phone: [phone] at: [facility] Lab[address] [id number] Director: Aris Freedman MD, Phone: [phone] Platelets bldOrdered By: Dr. Patel on 02-17-2022 Platelets (Bld) [#/Vol] 238 10*3/uL 150-450 [facility] Serum immunoglobulin kappa l ight chains/immunoglobulin lambda light chains mass ratioOrdered By: Dr. Joiner on 02-17-2022 Immunoglobulin light chains.kappa/Immunoglobu christiano light chains.lambda (S) [Mass ratio] 1.66 0.26-1.65 [facility] Serum or plasma albumin jigar urement (mass/volume)Ordered By: Dr. Patel on 02-17-2022 Albumin [Mass/Vol] 3.6 g/dL 3.2-5.0 [facility] Serum or plasma albumin/glob ulin mass ratioOrdered By: Dr. Patel on 02-17-2022 Albumin/Globulin [Mass ratio] 1.1 {ratio} 0.9-2.4 [facility] Serum or plasma calcium jigar urement (mass/volume)Ordered By: Dr. Patel on 02-17-2022 Calcium [Mass/Vol] 9.6 mg/dL 8.5-10.1 [facility] Serum or plasma creatinine m easurement (mass/volume)Ordered By: Dr. Patel on 02-17-2022 Creatinine [Mass/Vol] 0.83 mg/dL 0.55-1.02 [facility] Comment on above: The validity of the calculated GFR & GFRAA in patients over 70 years has not been determined. Clinical correlation is essential. Serum or plasma folate measu rement (mass/volume)Ordered By: Dr. Joiner on 02-17-2022 Folate [Mass/Vol] ng/mL 3.1-55.4 [facility] Serum or plasma immunoglobul in kappa light chains measurement (mass/volume)Ordered By: Dr. Joiner on 02-17-2022 Immunoglobulin light chains.kappa [Mass/Vol] 30.1 mg/L 3.3-19.4 [facility] Serum or plasma urea nitroge n measurement (mass/volume)Ordered By: Dr. Patel on 02-17-2022 Urea nitrogen [Mass/Vol] 34 mg/dL 7-18 [facility] Thin prep Papanicolaou smear with manual screeningOrdered By: Dr. Patel on 02-17-2022 Thin prep Papanicolaou smear with manual screening 18 U/L 15-37 [facility] Thin prep Papanicolaou smear with manual screening 9 5-15 [facility] Whole blood hemoglobin A1c/t otal hemoglobin ratio (mass fraction)Ordered By: Dr. Joiner on 02-17-2022 HbA1c (Bld) [Mass fraction] 6.3 % 3.8-5.6 [facility] Comment on above: Normal < 5.7 % Predi abetic 5.7 - 6.4 % Diabetic >or= 6.5 % Please note range changes. ALEKSANDRA SCREENINGon 01-10-2022 [facility] Absolute lymphocyte counton 12-09-2021 Lymphocytes Auto (Unsp spec) [#/Vol] 1.13 10*3/uL 0.83-4.51 [facility] Work Phone: Basophil percentageon 2021 Basophils/100 WBC (Bld) 0.7 % 0-1 [facility] Work Phone: Bilirubin [Mass/Vol] 0.50 mg/dL 0.20-1.00 [facility] Work Phone: Comment on above: For patients on eltr ombopag therapy, use of Dimension [place] TBIL is not recommended. Chloride [Moles/Vol] 107 mmol/L 98-107 [facility] Work Phone: Eosinophils/100 WBC (Bld) 1.3 % 0-5 [facility] Work Phone: Glucose [Mass/Vol] 116 mg/dL 74-106 [facility] Work Phone: Comment on above: Fasting Glucose resu lt from 100 to 125 mg/dL suggests IMPAIRED HOMEOSTASIS per A.D.A. criteria. Neutrophils (Bld) [#/Vol] 3.5 10*3/uL 2.0-7.7 [facility] Work Phone: [phone] Neutrophils/100 WBC (Bld) 64.4 % 47-70 [facility] Work Phone: Potassium [Moles/Vol] 3.9 mmol/L 3.5-5.1 [facility] Work Phone: Protein [Mass/Vol] 6.1 g/dL 6.4-8.2 [facility] Work Phone: Sodium [Moles/Vol] 140 mmol/L 136-145 [facility] Work Phone: WBC (Bld) [#/Vol] 5.5 10*3/uL 4.4-11.0 [facility] Work Phone: Blood erythrocytes count (nu mber/volume)on 12-09-2021 RBC (Bld) [#/Vol] 3.93 10*6/uL 4.2-5.4 [facility] Work Phone: Blood hemoglobin measurement (mass/volume)on 12-09-2021 Hemoglobin (Bld) [Mass/Vol] 11.9 g/dL 12.0-15.0 [facility] Work Phone: [phone] Blood lymphocytes/100 leukoc yteson 12-09-2021 Lymphocytes/100 WBC (Bld) 20.6 % 19-41 [facility] Work Phone: [phone] Blood monocytes/100 leukocyt eson 12-09-2021 Monocytes/100 WBC (Bld) 12.6 % 0-10 [facility] Work Phone: Blood platelet mean volumeon 12-09-2021 Platelet mean volume (Bld) [Entitic vol] 10.2 fL 6.2-12.0 [facility] Work Phone: Determination of erythrocyte mean corpuscular volume (MCV)on 12-09-2021 MCV (RBC) [Entitic vol] 92.9 fL 81-99 [facility] Work Phone: Hematocrit Auto (Bld) [Volum e fraction]on 12-09-2021 Hematocrit (Bld) [Volume fraction] 36.5 % 37-47 [facility] Work Phone: Laboratory - Chemistry and C hemistry - challengeon 12-09-2021 ALP [Catalytic activity/Vol] 71 U/L 45-117 [facility] Work Phone: ALT [Catalytic activity/Vol] 21 U/L 13-56 [facility] Work Phone: CO2 [Moles/Vol] 26.0 mmol/L 21.0-32.0 [facility] Work Phone: Globulin (S) [Mass/Vol] 3.0 g/dL 2.2-4.2 [facility] Work Phone: Urea nitrogen/Creatinine [Mass ratio] 40.3 mg/mg 10-20 [facility] Work Phone: Laboratory - Hematology and Cell countson 12-09-2021 Erythrocyte distribution width (RBC) [Entitic vol] 48.6 fL 35.1-43.9 [facility] Work Phone: Erythrocyte distribution width (RBC) [Ratio] 14.6 % 11.6-14.6 [facility] Work Phone: Immature granulocytes/100 WBC (Bld) 0.400 % 0.0-0.9 [facility] Work Phone: Comment on above: IG% - Immature Granu locytes (promyelocytes, myelocytes and metamyelocytes) > 1% indicates that a LEFT SHIFT is Present. MCH (RBC) [Entitic mass] 30.3 pg 27.0-32.0 [facility] Work Phone: Nucleated RBC/100 WBC (Bld) [Ratio] 0 % 0-5 [facility] Work Phone: MCHC Auto (RBC) [Mass/Vol]on 12-09-2021 MCHC (RBC) [Mass/Vol] 32.6 g/dL 32-36 [facility] Work Phone: No Panel Informationon 12-09 Estimated GFR (MDRD) Amer 83 mL/min >60 [facility] [facility] Work Phone: Comment on above: GFR Calc Estimated GFR (MDRD) Non-Af Amer 68 mL/min >60 [facility] Work Phone: Comment on above: Non- GFR Calc Platelets bldon 12-09-2021 Platelets (Bld) [#/Vol] 219 10*3/uL 150-450 [facility] Work Phone: Serum or plasma albumin jigar urement (mass/volume)on 12-09-2021 Albumin [Mass/Vol] 3.1 g/dL 3.2-5.0 [facility] Work Phone: Serum or plasma albumin/glob ulin mass ratioon 12-09-2021 Albumin/Globulin [Mass ratio] 1.0 {ratio} 0.9-2.4 [facility] Work Phone: Serum or plasma calcium jigar urement (mass/volume)on 12-09-2021 Calcium [Mass/Vol] 9.1 mg/dL 8.5-10.1 [facility] Work Phone: Serum or plasma creatinine m easurement (mass/volume)on 12-09-2021 Creatinine [Mass/Vol] 0.84 mg/dL 0.55-1.02 [facility] Work Phone: Comment on above: The validity of the calculated GFR & GFRAA in patients over 70 years has not been determined. Clinical correlation is essential. Serum or plasma urea nitroge n measurement (mass/volume)on 12-09-2021 Urea nitrogen [Mass/Vol] 34 mg/dL 7-18 [facility] Work Phone: Thin prep Papanicolaou smear with manual screeningon 12-09-2021 Thin prep Papanicolaou smear with manual screening 18 U/L 15-37 [facility] Work Phone: Thin prep Papanicolaou smear with manual screening 7 -15 [facility] Work Phone: Absolute lymphocyte counton 09-25-2021 Lymphocytes Auto (Unsp spec) [#/Vol] 1.19 10*3/uL 0.83-4.51 [facility] Work Phone: Basophil percentageon 2021 Basophils/100 WBC (Bld) 0.7 % 0-1 [facility] Work Phone: Bilirubin [Mass/Vol] 0.70 mg/dL 0.20-1.00 [facility] Work Phone: Comment on above: For patients on eltr ombopag therapy, use of Dimension [place] TBIL is not recommended. Chloride [Moles/Vol] 105 mmol/L 98-107 [facility] Work Phone: Eosinophils/100 WBC (Bld) 2.0 % 0-5 [facility] Work Phone: [phone] Glucose [Mass/Vol] 111 mg/dL 74-106 [facility] Work Phone: [phone] Comment on above: Fasting Glucose resu lt from 100 to 125 mg/dL suggests IMPAIRED HOMEOSTASIS per A.D.A. criteria. Neutrophils (Bld) [#/Vol] 3.5 10*3/uL 2.0-7.7 [facility] Work Phone: Neutrophils/100 WBC (Bld) 60.1 % 47-70 [facility] Work Phone: Potassium [Moles/Vol] 3.7 mmol/L 3.5-5.1 [facility] Work Phone: Protein [Mass/Vol] 6.3 g/dL 6.4-8.2 [facility] Work Phone: Sodium [Moles/Vol] 140 mmol/L 136-145 [facility] Work Phone: WBC (Bld) [#/Vol] 5.9 10*3/uL 4.4-11.0 [facility] Work Phone: Blood erythrocytes count (nu mber/volume)on 09-25-2021 RBC (Bld) [#/Vol] 3.91 10*6/uL 4.2-5.4 [facility] Work Phone: Blood hemoglobin measurement (mass/volume)on 09-25-2021 Hemoglobin (Bld) [Mass/Vol] 11.6 g/dL 12.0-15.0 [facility] Work Phone: [phone] Blood lymphocytes/100 leukoc yteson 09-25-2021 Lymphocytes/100 WBC (Bld) 20.3 % 19-41 [facility] Work Phone: [phone] Blood monocytes/100 leukocyt eson 09-25-2021 Monocytes/100 WBC (Bld) 16.7 % 0-10 [facility] Work Phone: Blood platelet mean volumeon 09-25-2021 Platelet mean volume (Bld) [Entitic vol] 10.3 fL 6.2-12.0 [facility] Work Phone: Determination of erythrocyte mean corpuscular volume (MCV)on 09-25-2021 MCV (RBC) [Entitic vol] 91.0 fL 81-99 [facility] Work Phone: Hematocrit Auto (Bld) [Volum e fraction]on 09-25-2021 Hematocrit (Bld) [Volume fraction] 35.6 % 37-47 [facility] Work Phone: Laboratory - Chemistry and C hemistry - challengeon 09-25-2021 ALP [Catalytic activity/Vol] 70 U/L 45-117 [facility] Work Phone: ALT [Catalytic activity/Vol] 20 U/L 13-56 [facility] Work Phone: CO2 [Moles/Vol] 27.0 mmol/L 21.0-32.0 [facility] Work Phone: Globulin (S) [Mass/Vol] 3.1 g/dL 2.2-4.2 [facility] Work Phone: Urea nitrogen/Creatinine [Mass ratio] 39.8 mg/mg 10-20 [facility] Work Phone: Laboratory - Hematology and Cell countson 09-25-2021 Erythrocyte distribution width (RBC) [Entitic vol] 51.1 fL 35.1-43.9 [facility] Work Phone: Erythrocyte distribution width (RBC) [Ratio] 15.3 % 11.6-14.6 [facility] Work Phone: Immature granulocytes/100 WBC (Bld) 0.200 % 0.0-0.9 [facility] Work Phone: Comment on above: IG% - Immature Granu locytes (promyelocytes, myelocytes and metamyelocytes) > 1% indicates that a LEFT SHIFT is Present. MCH (RBC) [Entitic mass] 29.7 pg 27.0-32.0 [facility] Work Phone: Nucleated RBC/100 WBC (Bld) [Ratio] 0 % 0-5 [facility] Work Phone: MCHC Auto (RBC) [Mass/Vol]on 09-25-2021 MCHC (RBC) [Mass/Vol] 32.6 g/dL 32-36 [facility] Work Phone: No Panel Informationon 09-25 Estimated GFR (MDRD) Amer 94 mL/min >60 [facility] Work Phone: Comment on above: GFR Calc Estimated GFR (MDRD) Non-Af Amer 78 mL/min >60 [facility] Work Phone: Comment on above: Non- GFR Calc Platelets bldon 09-25-2021 Platelets (Bld) [#/Vol] 198 10*3/uL 150-450 [facility] Work Phone: Serum or plasma albumin jigar urement (mass/volume)on 09-25-2021 Albumin [Mass/Vol] 3.2 g/dL 3.2-5.0 [facility] Work Phone: Serum or plasma albumin/glob ulin mass ratioon 09-25-2021 Albumin/Globulin [Mass ratio] 1.0 {ratio} 0.9-2.4 [facility] Work Phone: Serum or plasma calcium jigar urement (mass/volume)on 09-25-2021 Calcium [Mass/Vol] 9.2 mg/dL 8.5-10.1 [facility] Work Phone: Serum or plasma creatinine m easurement (mass/volume)on 09-25-2021 Creatinine [Mass/Vol] 0.75 mg/dL 0.55-1.02 [facility] Work Phone: Comment on above: The validity of the calculated GFR & GFRAA in patients over 70 years has not been determined. Clinical correlation is essential. Serum or plasma urea nitroge n measurement (mass/volume)on 09-25-2021 Urea nitrogen [Mass/Vol] 30 mg/dL 7-18 [facility] Work Phone: Thin prep Papanicolaou smear with manual screeningon 09-25-2021 Thin prep Papanicolaou smear with manual screening 20 U/L 15-37 [facility] Work Phone: Thin prep Papanicolaou smear with manual screening 8 5-15 [facility] Work Phone: Absolute lymphocyte counton 07-01-2021 Lymphocytes Auto (Unsp spec) [#/Vol] 1.19 10*3/uL 0.83-4.51 [facility] Work Phone: Basophil percentageon 2021 Basophils/100 WBC (Bld) 0.2 % 0-1 [facility] Work Phone: Bilirubin [Mass/Vol] 0.30 mg/dL 0.20-1.00 [facility] Work Phone: Comment on above: For patients on eltr ombopag therapy, use of Dimension [place] TBIL is not recommended. Chloride [Moles/Vol] 104 mmol/L 98-107 [facility] Work Phone: Eosinophils/100 WBC (Bld) 2.3 % 0-5 [facility] Work Phone: Glucose [Mass/Vol] 123 mg/dL 74-106 [facility] Work Phone: Comment on above: Fasting Glucose resu lt from 100 to 125 mg/dL suggests IMPAIRED HOMEOSTASIS per A.D.A. criteria. Neutrophils (Bld) [#/Vol] 2.4 10*3/uL 2.0-7.7 [facility] Work Phone: Neutrophils/100 WBC (Bld) 54.1 % 47-70 [facility] Work Phone: Potassium [Moles/Vol] 3.5 mmol/L 3.5-5.1 [facility] Work Phone: [phone] Protein [Mass/Vol] 6.7 g/dL 6.4-8.2 [facility] Work Phone: Sodium [Moles/Vol] 138 mmol/L 136-145 [facility] Work Phone: WBC (Bld) [#/Vol] 4.4 10*3/uL 4.4-11.0 [facility] Work Phone: Blood erythrocytes count (nu mber/volume)on 07-01-2021 RBC (Bld) [#/Vol] 4.02 10*6/uL 4.2-5.4 [facility] Work Phone: Blood hemoglobin measurement (mass/volume)on 07-01-2021 Hemoglobin (Bld) [Mass/Vol] 12.1 g/dL 12.0-15.0 [facility] Work Phone: Blood lymphocytes/100 leukoc yteson 07-01-2021 Lymphocytes/100 WBC (Bld) 27.0 % 19-41 [facility] Work Phone: Blood monocytes/100 leukocyt eson 07-01-2021 Monocytes/100 WBC (Bld) 15.9 % 0-10 [facility] Work Phone: Blood platelet mean volumeon 07-01-2021 Platelet mean volume (Bld) [Entitic vol] 9.7 fL 6.2-12.0 [facility] Work Phone: Determination of erythrocyte mean corpuscular volume (MCV)on 07-01-2021 MCV (RBC) [Entitic vol] 90.8 fL 81-99 [facility] Work Phone: Hematocrit Auto (Bld) [Volum e fraction]on 07-01-2021 Hematocrit (Bld) [Volume fraction] 36.5 % 37-47 [facility] Work Phone: Laboratory - Chemistry and C hemistry - challengeon 07-01-2021 ALP [Catalytic activity/Vol] 74 U/L 45-117 [facility] Work Phone: ALT [Catalytic activity/Vol] 26 U/L 13-56 [facility] Work Phone: CO2 [Moles/Vol] 29.0 mmol/L 21.0-32.0 [facility] Work Phone: Globulin (S) [Mass/Vol] 3.9 g/dL 2.2-4.2 [facility] Work Phone: Urea nitrogen/Creatinine [Mass ratio] 32.6 mg/mg 10-20 [facility] Work Phone: Laboratory - Hematology and Cell countson 07-01-2021 Erythrocyte distribution width (RBC) [Entitic vol] 48.5 fL 35.1-43.9 [facility] Work Phone: Erythrocyte distribution width (RBC) [Ratio] 14.9 % 11.6-14.6 [facility] Work Phone: Immature granulocytes/100 WBC (Bld) 0.500 % 0.0-0.9 [facility] Work Phone: Comment on above: IG% - Immature Granu locytes (promyelocytes, myelocytes and metamyelocytes) > 1% indicates that a LEFT SHIFT is Present. MCH (RBC) [Entitic mass] 30.1 pg 27.0-32.0 [facility] Work Phone: Nucleated RBC/100 WBC (Bld) [Ratio] 0 % 0-5 [facility] Work Phone: MCHC Auto (RBC) [Mass/Vol]on 07-01-2021 MCHC (RBC) [Mass/Vol] 33.2 g/dL 32-36 [facility]: No Panel Informationon 07-01 Estimated GFR (MDRD) Amer 84 mL/min >60 [facility] Work Phone: Comment on above: GFR Calc Estimated GFR (MDRD) Non-Af Amer 70 mL/min >60 [facility] Work Phone: Comment on above: Non- GFR Calc Platelets bldon 07-01-2021 Platelets (Bld) [#/Vol] 232 10*3/uL 150-450 [facility] Work Phone: Serum or plasma albumin jigar urement (mass/volume)on 07-01-2021 Albumin [Mass/Vol] 2.8 g/dL 3.2-5.0 [facility] Work Phone: Serum or plasma albumin/glob ulin mass ratioon 07-01-2021 Albumin/Globulin [Mass ratio] 0.7 {ratio} 0.9-2.4 [facility] Work Phone: Serum or plasma calcium jigar urement (mass/volume)on 07-01-2021 Calcium [Mass/Vol] 8.7 mg/dL 8.5-10.1 [facility] Work Phone: Serum or plasma creatinine m easurement (mass/volume)on 07-01-2021 Creatinine [Mass/Vol] 0.83 mg/dL 0.55-1.02 [facility] Work Phone: Comment on above: The validity of the calculated GFR & GFRAA in patients over 70 years has not been determined. Clinical correlation is essential. Serum or plasma urea nitroge n measurement (mass/volume)on 07-01-2021 Urea nitrogen [Mass/Vol] 27 mg/dL 7-18 [facility] Work Phone: Thin prep Papanicolaou smear with manual screeningon 07-01-2021 Thin prep Papanicolaou smear with manual screening 23 U/L 15-37 [facility] Work Phone: Thin prep Papanicolaou smear with manual screening 5 5-15 [facility] Work Phone: Office Visit: [facility] 02-27-20 17 Dietary management education, guidance, and counseling (procedure) yes Invalid Interpretation Code [facility] Work Phone: Documentation of current medications (procedure) Done Invalid Interpretation Code [facility] Work Phone: Tobacco use CPHS Never smoker Invalid Interpretation Code [facility] Work Phone: Office Visit: [facility] 08-26-19 17 Fall risk assessment No Invalid Interpretation Code [facility] Work Phone: [phone] Lab Report: Serum Creatinine AND GFRon 07-03-2016 Creatinine [Mass/Vol] 0.96 mg/dL Invalid Interpretation Code 0.55-1.02 [employer] Phone: [phone] eGFR (non-black) 72 mL/min/{1.73_m2} Invalid Interpretation Code >60 [email or web address] Work Phone: [phone] GFR/1.73 sq M.predicted among non-blacks MDRD (S/P/Bld) [Vol rate/Area] 59 mL/min/{1.73_m2} Low >60 [facility] Phone: [phone] Glomerular Filtration rate 72 mL/min Invalid Interpretation Code >60 [facility] Phone: [phone] Replaced Document: Sebas WATSON Observationson 06-26-2016 EKG QRS axis 6 deg Invalid Interpretation Code [facility] Phone: [phone] electrocardiogram interpretation 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 Invalid Interpretation Code [facility] Phone: [phone] P [place] 32 deg Invalid Interpretation Code [facility] Phone: [phone] P wave axis, electrocardiogram 32 deg Invalid Interpretation Code [facility] Phone: [phone] WI Interval 174 ms Invalid Interpretation Code [facility] Phone: [phone] WI interval, electrocardiogram 174 ms Invalid Interpretation Code [facility] Phone: [phone] QRS axis, electrocardiogram 6 deg Invalid Interpretation Code [facility] Phone: [phone] QRS Duration 96 ms Invalid Interpretation Code [facility] Phone: [phone] QRS duration, electrocardiogram 96 ms Invalid Interpretation Code [facility] Phone: [phone] QT Interval new path ms Invalid Interpretation Code [facility] [email or web address] Work Phone: [phone] QT interval, electrocardiogram new path ms Invalid Interpretation Code [facility] [email or web address] Work Phone: [phone] QTc [place] 424 ms Invalid Interpretation Code [place] [email or web address] Work Phone: [phone] T [place] 42 deg Invalid Interpretation Code [place] [email or web address] Work Phone: [phone] T wave axis, electrocardiogram 42 deg Invalid Interpretation Code [facility] [email or web address] Work Phone: [phone] Clinical Lists Update: 06-19-2016 Tobacco use status CPHS Never smoker Invalid Interpretation Code [email or web address] Work Phone: [phone] Clinical Lists Update: 04-30-2016 Alkaline phosphatase (ALP) 66 U/L Invalid Interpretation Code [place] [email or web address] Work Phone: [phone] ALP (Bld) [Catalytic activity/Vol] 66 U/L Invalid Interpretation Code [email or web address] Work Phone: [phone] ALT [Catalytic activity/Vol] 19 U/L Invalid Interpretation Code [email or web address] Work Phone: [phone] AST [Catalytic activity/Vol] 22 U/L Invalid Interpretation Code [email or web address] Work Phone: [phone] Bilirubin [Mass/Vol] 0.50 mg/dL Invalid Interpretation Code [email or web address] Work Phone: [phone] Calcium [Mass/Vol] 8.7 mg/dL Invalid Interpretation Code [email or web address] Work Phone: [phone] Chloride [Moles/Vol] 107 mmol/L Invalid Interpretation Code [email or web address] Work Phone: [phone] CO2 26.0 mmol/L Invalid Interpretation Code [email or web address] Work Phone: [phone] CO2 (BldV) [Partial pressure] 26.0 mmol/L Invalid Interpretation Code [email or web address] Work Phone: [phone] Glucose [Mass/Vol] 79 mg/dL Invalid Interpretation Code [email or web address] Work Phone: [phone] Hematocrit (Bld) [Volume fraction] 39.7 % Invalid Interpretation Code [email or web address] Work Phone: [phone] Hematocrit (HCT) 39.7 % Invalid Interpretation Code [email or web address] Work Phone: [phone] Hemoglobin (Bld) [Mass/Vol] 13.6 g/dL Invalid Interpretation Code [place] [email or web address] Work Phone: [phone] Platelets 216 10*3/mm3 Invalid Interpretation Code [facility] [employer] Work Phone: [phone] Platelets (Bld) [#/Vol] 216 10*3/uL Invalid Interpretation Code [place] [email or web address] Work Phone: [phone] Potassium [Moles/Vol] 3.4 mmol/L Invalid Interpretation Code [place] [email or web address] Work Phone: [phone] Protein [Mass/Vol] 7.4 g/dL Invalid Interpretation Code [place] [email or web address] Work Phone: [phone] Sodium [Moles/Vol] 138 mmol/L Invalid Interpretation Code [place] [email or web address] Work Phone: [phone] Urea nitrogen [Mass/Vol] 22 mg/dL Invalid Interpretation Code [place] [employer] [facility] Work Phone: [phone] Urea nitrogen/Creatinine [Mass ratio] 28.7 mg/mg Invalid Interpretation Code [place] [email or web address] Work Phone: [phone] WBC (Bld) [#/Vol] 7.1 10*3/uL Invalid Interpretation Code [place] [email or web address] Work Phone: [phone] WBC (Leukocytes) 7.1 10*3/uL Invalid Interpretation Code [place] [employer] [facility] Work Phone: [phone] Clinical Lists Update: Prelo tower climber 11-12-2015 Cholesterol [Mass/Vol] 125 mg/dL Invalid Interpretation Code [place] [email or web address] Work Phone: [phone] Cholesterol in HDL [Mass/Vol] 51 mg/dL Invalid Interpretation Code [place] [email or web address] Work Phone: [phone] Cholesterol in LDL [Mass/Vol] 54 mg/dL Invalid Interpretation Code [place] [email or web address] Work Phone: [phone] Triglyceride [Mass/Vol] 102 mg/dL Invalid Interpretation Code [place] [email or web address] Work Phone: [phone] Vital Signs Date Time Vital Sign Value Performing Clinician Thaddeus mcintyre 07-13-2024 09:46-0400 Body height 157.[address] Olga Hurst MD Work Phone: [facility] 07-13-2024 09:40-0400 Body mass index (BMI) [Ratio] 30.8 kg/m2 Dr. Olga Hurst MD Work Phone: [facility] 07-13-2024 09:40-0400 Body weight 74.[address] Olga Hurst MD Work Phone: [phone] [place] [address] 07-13-2024 09:40-0400 Diastolic blood pressure 69 mm[Hg] Dr. Olga Hurst MD Work Phone: [facility] 07-13-2024 09:40-0400 Systolic blood pressure 135 mm[Hg] Dr. Olga Hurst MD Work Phone: [phone] [address] 06-16-2024 12:59-0500 Body mass index (BMI) [Ratio] 30.2 kg/m2 Dr. Olga Hurst MD Work Phone: [phone] [place] [address] 06-16-2024 12:59-0500 Body temperature 98.2 [degF] Dr. Olga Hurst MD Work Phone: [facility] 06-16-2024 12:59-0500 Body weight 74.[address] Olga Hurst MD Work Phone: [facility] 06-16-2024 12:59-0500 Diastolic blood pressure 68 mm[Hg] Dr. Olga Hurst MD Work Phone: [facility] 06-16-2024 12:59-0500 Heart rate 77 /min Dr. Olga Hurst MD Work Phone: [facility] 06-16-2024 12:59-0500 Respiratory rate 16 /min Dr. Olga Hurst MD Work Phone: [facility] 06-16-2024 12:59-0500 SaO2% (BldA) [Mass fraction] 97 % Dr. Olga Hurst MD Work Phone: [phone] [place] [address] 06-16-2024 12:59-0500 Systolic blood pressure 126 mm[Hg] Dr. Olga Hurst MD Work Phone: [facility] 08-02-2023 15:14-0400 Body temperature 97.8 [degF] Dr. Olga Hurst Work Phone: [facility] 08-02-2023 15:14-0400 Diastolic blood pressure 76 mm[Hg] Dr. Olga Hurst Work Phone: [facility] 08-02-2023 15:14-0400 Heart rate 91 /min Dr. Olga Hurst Work Phone: [facility] 08-02-2023 15:14-0400 Respiratory rate 14 /min Dr. Olga Hurst Work Phone: [facility] 08-02-2023 15:14-0400 SaO2% (BldA) [Mass fraction] 99 % Dr. Olga Hurst Work Phone: [facility] 08-02-2023 15:14-0400 Systolic blood pressure 147 mm[Hg] Dr. Olga Hurst Work Phone: [facility] 08-02-2023 14:48-0400 Body mass index (BMI) [Ratio] 32.3 kg/m2 Dr. Olga Hurst Work Phone: [facility] 08-02-2023 14:48-0400 Body weight 80.[address] Olga Hurst Work Phone: [facility] 08-02-2023 14:14-0400 Body height 157.[address] Olga Hurst Work Phone: [facility] 08-02-2023 10:54-0400 Body temperature 98.1 [degF] Dr. Olga Hurst Work Phone: [facility] 08-02-2023 10:54-0400 Diastolic blood pressure 68 mm[Hg] Dr. Olga Hurst Work Phone: [facility] 08-02-2023 10:54-0400 Heart rate 77 /min Dr. Olga Hurst Work Phone: [facility] 08-02-2023 10:54-0400 Respiratory rate 18 /min Dr. Olga Hurst Work Phone: [facility] 08-02-2023 10:54-0400 SaO2% (BldA) [Mass fraction] 96 % Dr. Olga Hurst Work Phone: [facility] 08-02-2023 10:54-0400 Systolic blood pressure 150 mm[Hg] Dr. Olga Hurst Work Phone: [facility] 07-29-2023 08:19-0400 Body temperature 97.8 [degF] Dr. Olga Hurst Work Phone: [facility] 07-29-2023 08:19-0400 Body weight 76.[address] Olga Hurst Work Phone: [facility] 07-29-2023 08:19-0400 Diastolic blood pressure 78 mm[Hg] Dr. Olga Hurst Work Phone: [facility] 07-29-2023 08:19-0400 Heart rate 76 /min Dr. Olga Hurst Work Phone: [facility] 07-29-2023 08:19-0400 Respiratory rate 14 /min Dr. Olga Hurst Work Phone: [facility] 07-29-2023 08:19-0400 SaO2% (BldA) [Mass fraction] 99 % Dr. Olga Hurst Work Phone: [facility] 07-29-2023 08:19-0400 Systolic blood pressure 140 mm[Hg] Dr. Olga Hurst Work Phone: [facility] 02-04-2023 08:28-0400 Body height 157.[address] Olga Hurst Work Phone: [facility] 02-04-2023 08:28-0400 Body mass index (BMI) [Ratio] 30.7 kg/m2 Dr. Olga Hurst Work Phone: [facility] 02-04-2023 08:28-0400 Body temperature 98.6 [degF] Dr. Olga Hurst Work Phone: [facility] 02-04-2023 08:28-0400 Body weight 76.[address] Olga Hurst Work Phone: [facility] 02-04-2023 08:28-0400 Diastolic blood pressure 64 mm[Hg] Dr. Olga Hurst Work Phone: [facility] 02-04-2023 08:28-0400 Heart rate 82 /min Dr. Olga Hurst Work Phone: [facility] 02-04-2023 08:28-0400 Respiratory rate 17 /min Dr. Olga Hurst Work Phone: [facility] 02-04-2023 08:28-0400 SaO2% (BldA) [Mass fraction] 99 % Dr. Olga Hurst Work Phone: [facility] 02-04-2023 08:28-0400 Systolic blood pressure 120 mm[Hg] Dr. Olga Hurst Work Phone: [facility] 09-16-2022 13:28-0400 Body height 157.[address] Olga Hurst Work Phone: [facility] 09-16-2022 13:28-0400 Body mass index (BMI) [Ratio] 31.1 kg/m2 Dr. Olga Hurst Work Phone: [facility] 09-16-2022 13:28-0400 Body weight 77.[address] Olga Hurst Work Phone: [facility] 09-16-2022 13:28-0400 Diastolic blood pressure 61 mm[Hg] Dr. Olga Hurst Work Phone: [facility] 09-16-2022 13:28-0400 Heart rate 77 /min Dr. Olga Hurst Work Phone: [facility] 09-16-2022 13:28-0400 Respiratory rate 20 /min Dr. Olga Hurst Work Phone: [facility] 09-16-2022 13:28-0400 Systolic blood pressure 97 mm[Hg] Dr. Olga Hurst Work Phone: [facility] 08-01-2022 22:03-0400 Diastolic blood pressure 61 mm[Hg] Dr. Olga Hurst Work Phone: [facility] 08-01-2022 22:03-0400 Heart rate 67 /min Dr. Olga Hurst Work Phone: [facility] 08-01-2022 22:03-0400 Respiratory rate 23 /min Dr. Olga Hurst Work Phone: [facility] 08-01-2022 22:03-0400 SaO2% (BldA) [Mass fraction] 99 % Dr. Olga Hurst Work Phone: [facility] 08-01-2022 22:03-0400 Systolic blood pressure 126 mm[Hg] Dr. Olga Hurst Work Phone: [facility] 08-01-2022 19:41-0400 Body temperature 96.3 [degF] Dr. Olga Hurst Work Phone: [facility] 08-01-2022 19:37-0400 Body height 157.[address] Olga Hurst Work Phone: [facility] 08-01-2022 19:37-0400 Body mass index (BMI) [Ratio] 31.8 kg/m2 Dr. Olga Hurst Work Phone: [facility] 08-01-2022 19:37-0400 Body weight [address] Olga Hurst Work Phone: [facility] 07-31-2022 09:21-0400 Body temperature 98.6 [degF] Dr. Olga Hurst Work Phone: [facility] 07-31-2022 09:21-0400 Diastolic blood pressure 74 mm[Hg] Dr. Olga Hurst Work Phone: [facility] 07-31-2022 09:21-0400 Heart rate 81 /min Dr. Olga Hurst Work Phone: [facility] 07-31-2022 09:21-0400 Respiratory rate 15 /min Dr. Olga Hurst Work Phone: [facility] 07-31-2022 09:21-0400 SaO2% (BldA) [Mass fraction] 97 % Dr. Olga Hurst Work Phone: [facility] 07-31-2022 09:21-0400 Systolic blood pressure 120 mm[Hg] Dr. Olga Hurst Work Phone: [facility] 07-21-2022 13:36-0400 Body weight 78.38 kg Kamille Melendez MD Work Phone: [facility] 07-21-2022 13:36-0400 Diastolic blood pressure 60 mm[Hg] Kamille Melendez MD Work Phone: [facility] 07-21-2022 13:36-0400 Systolic blood pressure 110 mm[Hg] Kamille Melendez MD Work Phone: [facility] 07-09-2022 08:15-0400 Body weight 78.47 kg Kamille Melendez MD Work Phone: [facility] 07-09-2022 08:15-0400 Diastolic blood pressure 60 mm[Hg] Kamille Melendez MD Work Phone: [facility] 07-09-2022 08:15-0400 Systolic blood pressure 128 mm[Hg] Kamille Melendez MD Work Phone: [facility] 06-10-2022 08:01-0500 Body height 154.[address] Olga Hurst Work Phone: [facility] 06-10-2022 08:01-0500 Body mass index (BMI) [Ratio] 32.8 kg/m2 Dr. Olga Hurst Work Phone: [facility] 06-10-2022 08:01-0500 Body temperature 97.8 [degF] Dr. Olga Hurst Work Phone: [facility] 06-10-2022 08:01-0500 Body weight 78.[address] Olga Hurst Work Phone: [facility] 06-10-2022 08:01-0500 Diastolic blood pressure 60 mm[Hg] Dr. Olga Hurst Work Phone: [facility] 06-10-2022 08:01-0500 Heart rate 75 /min Dr. Olga Hurst Work Phone: [facility] 06-10-2022 08:01-0500 Respiratory rate 16 /min Dr. Olga Hurst Work Phone: [facility] 06-10-2022 08:01-0500 SaO2% (BldA) [Mass fraction] 99 % Dr. Olga Hurst Work Phone: [facility] 06-10-2022 08:01-0500 Systolic blood pressure 118 mm[Hg] Dr. Olga Hurst Work Phone: [facility] 05-28-2022 10:03-0500 Body weight 78.47 kg Kamille Melendez MD Work Phone: [facility] 05-28-2022 10:03-0500 Diastolic blood pressure 64 mm[Hg] Kamille Melendez MD Work Phone: [facility] 05-28-2022 10:03-0500 Systolic blood pressure 120 mm[Hg] Kamille Melendez MD Work Phone: [facility] 02-24-2022 11:15-0400 Body weight 78.47 kg Kamille Melendez MD Work Phone: [facility] 02-24-2022 11:15-0400 Diastolic blood pressure 62 mm[Hg] Kamille Melendez MD Work Phone: [facility] 02-24-2022 11:15-0400 Systolic blood pressure 100 mm[Hg] Kamille Melendez MD Work Phone: [facility] 12-25-2021 08:09-0400 Body weight 78.02 kg Kamille Melendez MD Work Phone: [facility] 12-25-2021 08:09-0400 Diastolic blood pressure 64 mm[Hg] Kamille Melendez MD Work Phone: [facility] 12-25-2021 08:09-0400 Systolic blood pressure 118 mm[Hg] Kamille Melendez MD Work Phone: [facility] 11-13-2021 15:16-0400 Body weight 74.39 kg Kamille Melendez MD Work Phone: [facility] 11-13-2021 15:16-0400 Diastolic blood pressure 64 mm[Hg] Kamille Melendez MD Work Phone: [facility] 11-13-2021 15:16-0400 Systolic blood pressure 116 mm[Hg] Kamille Melendez MD Work Phone: [facility] 10-02-2021 08:06-0400 Body weight 76.2 kg Kamille Melendez MD Work Phone: [facility] 10-02-2021 08:06-0400 Diastolic blood pressure 60 mm[Hg] Kamille Melendez MD Work Phone: [facility] 10-02-2021 08:06-0400 Systolic blood pressure 108 mm[Hg] Kamille Melendez MD Work Phone: [facility] 09-30-2021 11:54-0400 Diastolic blood pressure 51 mm[Hg] Dr. Olga Hurst Work Phone: [facility] Work Phone: 09-30-2021 11:54-0400 Heart rate 65 /min Dr. Olga Hurst Work Phone: [facility] Work Phone: 09-30-2021 11:54-0400 Respiratory rate 16 /min Dr. Olga Hurst Work Phone: [facility] Work Phone: 09-30-2021 11:54-0400 SaO2% (BldA) [Mass fraction] 100 % Dr. Olga Hurst Work Phone: [facility] Work Phone: 09-30-2021 11:54-0400 Systolic blood pressure 133 mm[Hg] Dr. Olga Hurst Work Phone: [facility] Work Phone: 09-30-2021 10:00-0400 Body height 154.[address] Olga Hurst Work Phone: [facility] Work Phone: 09-30-2021 10:00-0400 Body mass index (BMI) [Ratio] 32.3 kg/m2 Dr. Olga Hurst Work Phone: [facility] Work Phone: 09-30-2021 10:00-0400 Body weight 77.[address] Olga Hurst Work Phone: [facility] Work Phone: 09-30-2021 09:23-0400 Body temperature 98 [degF] Dr. Olga Hurst Work Phone: [facility] Work Phone: 08-21-2021 08:38-0400 Body weight 74.39 kg Kamille Melendez MD Work Phone: [facility] 08-21-2021 08:38-0400 Diastolic blood pressure 62 mm[Hg] Kamille Melendez MD Work Phone: [facility] 08-21-2021 08:38-0400 Systolic blood pressure 120 mm[Hg] Kamille Melendez MD Work Phone: [facility] 07-12-2021 15:03-0400 Body weight 75.[address] Olga Hurst Work Phone: [facility] Work Phone: 07-12-2021 15:03-0400 Diastolic blood pressure 62 mm[Hg] Dr. Olga Hurst Work Phone: [facility] Work Phone: 07-12-2021 15:03-0400 Heart rate 76 /min Dr. Olga Hurst Work Phone: [facility] Work Phone: 07-12-2021 15:03-0400 Respiratory rate 18 /min Dr. Olga Hurst Work Phone: [facility] Work Phone: 07-12-2021 15:03-0400 Systolic blood pressure 124 mm[Hg] Dr. Olga Hurst Work Phone: [facility] Work Phone: 07-12-2021 15:03-0400 Body weight 75.[address] Olga Hurst Work Phone: [facility] Work Phone: 07-12-2021 15:03-0400 Diastolic blood pressure 62 mm[Hg] Dr. Olga Hurst Work Phone: [facility] Work Phone: 07-12-2021 15:03-0400 Heart rate 76 /min Dr. Olga Hurst Work Phone: [facility] Work Phone: 07-12-2021 15:03-0400 Respiratory rate 18 /min Dr. Olga Hurst Work Phone: [facility] Work Phone: 07-12-2021 15:03-0400 Systolic blood pressure 124 mm[Hg] Dr. Olga Hrust Work Phone: [facility] Work Phone: 10-04-2020 08:58-0400 Body mass index (BMI) [Ratio] 32.5 kg/m2 Dr. Olga Hurst Work Phone: [facility] Work Phone: 10-04-2020 08:58-0400 Body mass index (BMI) [Ratio] 32.5 kg/m2 Dr. Olga Hurst Work Phone: [facility] Work Phone: 02-26-2017 13:01-0400 BMI (Body Mass Index) 33.83 kg/m2 [facility] Work Phone: 02-26-2017 13:01-0400 BP Diastolic 66 mm[Hg] [facility] Work Phone: 02-26-2017 13:01-0400 BP Systolic 122 mm[Hg] [facility] Work Phone: 02-26-2017 13:01-0400 Height 157.48 cm [facility] Work Phone: 02-26-2017 13:01-0400 Pulse (Heart Rate) 76 /min [facility] Work Phone: 02-26-2017 13:01-0400 Weight 83.92 kg [facility] Work Phone: 08-25-2016 09:45-0400 Body height 157.48 cm Ramila Muir [facility] Work Phone: 08-25-2016 09:45-0400 Body mass index (BMI) [Ratio] 32.77 kg/m2 Ramila Linder Work Phone: 08-25-2016 09:45-0400 Body weight 81.29 kg Ramila Linder Work Phone: 08-25-2016 09:45-0400 Diastolic blood pressure 64 mm[Hg] [facility] Work Phone: 08-25-2016 09:45-0400 Heart rate 84 /min [facility] Work Phone: 08-25-2016 09:45-0400 Respiratory rate 20 /min Ramila Linder Work Phone: 08-25-2016 09:45-0400 Systolic blood pressure 110 mm[Hg] Ramila Linder Work Phone: 02-06-2010 14:20-0400 Body temperature 97.8 [degF] Ramila Linder Work Phone: Encounters Encounter Date Encounter Type Care Provider Facility Start: 07-13-2024 End: 07-13-[address] [facility] Work [facility]: Start: 07-13-2024 End: 07-13-2024 ambulatory Olga Hurst Facility[place] Start: 07-06-2024 End: 07-06-[address] Olga Hurst MD Work Phone: [facility] Work Phone: Start: 07-06-2024 End: 07-06-[address] Olga Hurst MD -[facility] Work Phone: Start: 07-06-2024 End: 07-06-2024 ambulatory Olga Hurst Facility:[facility] Start: 06-16-2024 End: 06-16-[address] Jb Joiner MD -[facility] Work Phone: Start: 06-16-2024 End: 06-16-2024 ambulatory Olga Hurst Facility:[facility] Start: 06-07-2024 End: 06-07-[address] Olga Hurst MD -[facility], [place] Work Phone: Start: 06-07-2024 End: 06-07-2024 ambulatory Olga Hurst Facility:[facility] Start: 05-16-2024 End: 05-16-[address] Olga Hurst MD -[facility] Work Phone: Start: 05-16-2024 End: 05-16-2024 ambulatory Olga Hurst Facility:[facility] Start: 04-14-2024 End: 04-14-2024 ambulatory OLGA HURST Facility:[facility] Start: 04-14-2024 End: 04-14-2024 Subsequent hospital visit by physician [facility] Start: 04-14-2024 End: 04-14-[address] Pavel Cartagena MD -[facility] Work Phone: Start: 04-14-2024 End: 04-14-2024 ambulatory Pavel Munizison Facility:[facility] Start: 03-03-2024 End: 03-03-2024 ambulatory Pavel Munizison Facility:[facility] Start: 02-19-2024 End: 02-19-2024 ambulatory Pavel Munizison Facility:[facility] Start: 02-17-2024 ambulatory Pavel Munizison Facility :[facility] Start: 02-17-2024 End: 02-17-2024 ambulatory Pavel Flavioison Facility:[facility] Start: 02-10-2024 End: 02-10-2024 ambulatory Leonid Jones Facility:[facility] Start: 01-18-2024 End: 01-18-2024 ambulatory Pavel Cartagena Facility:[facility] Start: 12-22-2023 End: 12-22-2023 ambulatory Jb Joiner Facility:[facility] Start: 12-22-2023 End: 12-22-2023 ambulatory Sherin Patel Facility:[facility] Start: 12-04-2023 End: 12-04-2023 ambulatory Olga Hurst Facility:[facility] Start: 11-04-2023 End: 11-04-2023 ambulatory Sherin Jorge Facility:[facility] Start: 10-27-2023 End: 10-27-2023 ambulatory Olga Hurst Facility[place] Start: 10-06-2023 End: 10-06-2023 Emergency department patient visit Olga Hurst Facility:[facility] Start: 09-25-2023 End: 09-25-2023 ambulatory Olga Hurst Facility:[facility] Start: 09-14-2023 End: 09-14-2023 ambulatory Olga Hurst Facility:[facility] Start: 08-26-2023 ambulatory Jb Ramírezrhona Facilit y:[facility] Start: 08-26-2023 Non-patient / Non-visit Dr. Alejandra Hurst Work Phone: [facility] Start: 08-26-2023 End: 08-26-[address] Olga Hurst Work Phone: [facility] Work Phone: Start: 08-26-2023 End: 08-26-[address] Olga Hurst Work Phone: [facility]-Pulmonary Services/Neurology Work Phone: Start: 08-26-2023 End: 08-26-2023 ambulatory Jb Joiner Facility:[facility] Start: 08-12-2023 End: 08-12-[address] Olga Hurst Work Phone: [facility] Work Phone: Start: 08-12-2023 End: 08-12-[address] Olga Hurst Work Phone: [facility] Start: 08-12-2023 End: 08-12-2023 ambulatory Sherin Patel Facility:[facility] Start: 08-02-2023 End: 08-02-2023 Emergency department patient [facility] Hurst [facility] Start: 08-02-2023 End: 08-02-[address] Olga Hurst Work Phone: [facility] Work Phone: Start: 08-02-2023 End: 08-02-2023 ambulatory Olga Hurst Facility:[facility] Start: 07-29-2023 End: 07-29-[address] Olga Hurst Work Phone: [facility] Work Phone: Start: 07-29-2023 End: 07-29-2023 ambulatory Olga Hurst Facility:[facility] Start: 05-13-2023 End: 05-13-[address] Olga Hurst Work Phone: [facility] Work Phone: Start: 05-13-2023 End: 05-13-[address] Olga Hurst Work Phone: [facility] Start: 02-04-2023 End: 02-04-[address] Olga Hurst Work Phone: [facility] Work Phone: Start: 01-29-2023 Documentation procedure Mammog chucky Coordinator [facility] Start: 01-29-2023 Letter encounter Mammography Coordinator [facility] Department Start: 01-26-2023 End: 01-26-[address] Olga Hurst Work Phone: [facility] Start: 01-23-2023 End: 01-23-[address] Olga Hurst Work Phone: [facility] Work Phone: Start: 10-22-2022 End: 10-22-[address] Olga Hurst Work Phone: [facility] Work Phone: Start: 10-22-2022 End: 10-22-[address] Olga Hurst Work Phone: [facility]-Cardiovascul ar Services Work Phone: Start: 09-16-2022 End: 09-16-[address] Olga Hurst Work Phone: [facility] Work Phone: Start: 08-28-2022 End: 08-28-[address] Olga Hurst Work Phone: [facility] Work Phone: Start: 08-28-2022 End: 08-28-[address] Olga Hurst Work Phone: [facility] Start: 08-01-2022 End: 08-01-2022 Emergency department patient visit Dr. Olga Hurst Work Phone: [facility]-Emergency Department Start: 07-31-2022 End: 07-31-[address] Olga Hurst Work Phone: [facility] Start: 07-21-2022 End: 07-21-2022 Patient encounter procedure Kamille Melendez MD Work Phone: OB/Gynecology Comment on above: Female genital prola pse, unspecified type (Primary Dx) Start: 07-09-2022 End: 07-09-2022 Patient encounter procedure Kamille Melendez MD Work Phone: OB/Gynecology Comment on above: Vaginal inflammation from pessary, initial encounter (HCC) (Primary Dx); Female genital prolapse, unspecified type; Pessary maintenance Start: 06-10-2022 End: 06-10-[address] Olga Hurst Work Phone: [facility] Work Phone: Start: 06-10-2022 End: 06-10-[address] Olga Hurst Work Phone: [facility] Start: 06-10-2022 End: 06-10-[address] Olga Hurst Work Phone: [facility] Start: 05-30-2022 End: 05-30-[address] Olga Hurst Work Phone: [facility] Work Phone: Start: 05-30-2022 End: 05-30-[address] Olga Hurst Work Phone: [facility] Start: 05-28-2022 End: 05-28-2022 Patient encounter procedure Kamille Melendez MD Work Phone: OB/Gynecology Comment on above: Female genital prola pse, unspecified type (Primary Dx); Pessary maintenance Start: 02-24-2022 End: 02-24-2022 Patient encounter procedure Kamille Melendez MD Work Phone: OB/Gynecology Comment on above: Pessary maintenance (Primary Dx); Female genital prolapse, unspecified type Start: 02-17-2022 End: 02-17-[address] Olga Hurst Work Phone: [facility] Start: 02-17-2022 End: 02-17-[address] Olga Hurst Work Phone: [facility] Neurology Start: 01-10-2022 Documentation procedure Mammog chucky Coordinator [facility] Start: 01-10-2022 Letter encounter Mammography Coordinator [facility] Department Start: 01-10-2022 End: 01-10-2022 Subsequent hospital visit by physician Screen Mammo [facility] Start: 12-25-2021 End: 12-25-2021 Patient encounter procedure Kamille Neyhart Melendez MD Work Phone: OB/Gynecology Comment on above: Female genital prola pse, unspecified type (Primary Dx); Pessary maintenance; Vaginal irritation from pessary (HCC); Yeast dermatitis Start: 12-09-2021 End: 12-09-2021 Patient encounter procedure [facility] Start: 11-13-2021 End: 11-13-2021 Patient encounter procedure Kamille Melendez MD Work Phone: OB/Gynecology Comment on above: Pessary maintenance (Primary Dx); Female genital prolapse, unspecified type Start: 10-14-2021 End: 10-14-[address] Olga Hurst Work Phone: [facility] Start: 10-02-2021 End: 10-02-2021 Patient encounter procedure Kamille Melendez MD Work Phone: OB/Gynecology Comment on above: Pessary maintenance (Primary Dx); Female genital prolapse, unspecified type Start: 09-30-2021 End: 09-30-2021 Emergency department patient visit Dr. Olga Hurst Work Phone: [facility]-Emergency Department Start: 09-25-2021 End: 09-25-[address] Olga Hurst Work Phone: [facility] Start: 08-21-2021 End: 08-21-2021 Patient encounter procedure Kamille Melendez MD Work Phone: OB/Gynecology Comment on above: Pessary maintenance (Primary Dx); Female genital prolapse, unspecified type Start: 07-12-2021 End: 07-12-[address] Olga Hurst Work Phone: [facility] Start: 07-01-2021 End: 07-01-[address] [facility] Hurst [facility] Start: 11-28-2008 End: 09-23-2011 Patient encounter status Screen [facility] End: 09-23-2011 Patient encounter status Screen [facility] Procedures Date Procedure Procedure Detail Performing Clinician Start: 07-06-2024 CT of soft tissues o f neck with contrast Dr. Olga Hurst MD Work Phone: Start: 06-07-2024 X-ray of chest, PA a nd lateral views Dr. Olga Hurst MD Work Phone: Start: 06-07-[address] Olga Hurst MD Work Phone: Start: 06-07-2024 X-ray of unilateral ribs, two views without x-ray of chest Dr. Olga Hurst MD Work Phone: Start: 05-16-[address] Olga Hurst MD Work Phone: Start: 08-02-2023 Plain chest X-ray Dr. Kwame Hurst Work Phone: Start: 08-02-2023 SARS-CoV-2, Influenz a & RSV (PCR) Dr. Olga Hurst Work Phone: Start: 01-23-2023 Bacteria identified in Urine by Culture Dr. Olga Hurst Work Phone: Start: 01-23-[address] Olga woods Work Phone: Start: 08-01-2022 Plain chest X-ray Dr. Kwame Hurst Work Phone: Start: 08-01-2022 X-ray of soft tissue of neck Dr. Olga Hurst Work Phone: Start: 01-10-2022 Screening mammograph y bi 2-view breast inc cad Olga Hurst Work Phone: Start: 10-14-2021 MRI of brain with contrast Dr. Olga Hurst Work Phone: Start: 09-30-2021 CT of head without contrast Dr. 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-C Start: 08-25-2016 End: 08-25-2016 Documentation of current medications Ramila Muir Start: 08-25-2016 End: 08-25-2016 Follow Up Appt 6 months Chaitanya Puente Bass 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 TEACHER -C Start: 08-25-2016 End: 08-25-2016 PFM Chaitanya Puente Bass 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-C Start: 07-01-2016 End: 07-04-2016 Ct head/brain w/o [...] Treatment Date Care Activity Detail Author Start: 04-11-2024 Covid-19 Vaccine () Covid-19 Vaccine () [facility] Start: 08-02-2023 [facility] Start: 04-27-2023 Advance Directive Discussion Advance Directive Discussion [facility] Start: 03-16-2023 Covid-19 Vaccine (6 - Pfizer risk series) Covid-19 Vaccine (6 - Pfizer risk series) [facility] Start: 08-01-2022 [facility] Start: 06-10-2022 Serum immunofixation [facility] Start: 06-10-2022 Urine immunofixation [facility] Start: 04-27-2022 ADVANCE DIRECTIVE DISCUSSION ADVANCE DIRECTIVE DISCUSSION [facility] Start: 04-27-2022 DEPRESSION ASSESSMENT DEPRESSION ASSESSMENT [facility] Start: 01-01-2022 COVID-19 VACCINE (5 - Booster for Pfizer series) COVID-19 VACCINE (5 - Booster for Pfizer series) [facility] Start: 12-26-2021 Influenza vaccination INFLUENZA (#1) [facility] Start: 05-07-2021 COVID-19 VACCINE (4 - Booster for Pfizer series) COVID-19 VACCINE (4 - Booster for Pfizer series) [facility] Start: 01-01-2022 ADVANCE DIRECTIVE DISCUSSION ADVANCE DIRECTIVE DISCUSSION [facility] Start: 04-27-2021 DEPRESSION ASSESSMENT DEPRESSION ASSESSMENT [facility] Start: 08-27-2018 FECAL OCCULT BLOOD FECAL OCCULT BLOOD [facility] Start: 03-15-2018 End: 03-15-2018 Appointment Appointment [facility] Work Phone: Start: 10-05-2017 DIABETES SCREEN DIABETES SCREEN [facility] Start: 10-05-2017 Diabetes Screening Diabetes Screening [facility] Start: 08-31-2017 End: 08-31-2017 Patient encounter procedure Appointment [facility] Work Phone: Start: 03-09-2017 Shingrix Vaccine (1 of 2) Shingrix Vaccine (1 of 2) [facility] Start: 02-26-2017 End: 02-26-2017 Follow Up Appt 1 year Follow Up Appt 1 year [facility] Work Phone: Start: 02-26-2017 End: 02-26-2017 PFM PFM [facility] Work Phone: Start: 02-26-2017 End: 02-26-2017 Patient encounter procedure Appointment [facility] Work Phone: Start: 08-25-2016 End: 08-25-2016 Duplex scan extracranial art compl bi study Carotid Duplex Bilateral - Routine [facility] Work Phone: Start: 08-25-2016 End: 08-25-2016 Follow Up Appt 6 months Follow Up Appt 6 months [facility] Work Phone: Start: 08-25-2016 End: 08-25-2016 PFM PFM [facility] Work Phone: Start: 08-25-2016 End: 08-25-2016 Patient encounter procedure Appointment [facility] Work Phone: Start: 08-25-2016 End: 08-25-2016 Duplex scan extracranial art compl bi study Carotid Duplex Bilateral - Routine [facility] Work Phone: Start: 08-25-2016 End: 08-25-2016 Follow Up Appt 6 months Follow Up Appt 6 months [facility] Work Phone: Start: 08-25-2016 End: 08-25-2016 PFM PFM [facility] Work Phone: Start: 06-26-2016 End: 06-26-2016 Ct head/brain w/o & w/contrast material CT Head/Brain with and without Contrast [email or web address] Work Phone: Start: 06-26-2016 End: 06-26-2016 Ecg routine ecg w/least 12 lds w/i&r EKG (In office) [facility] Work Phone: Start: 06-26-2016 End: 06-26-2016 Echocardiography Echocardiogram (complete) [email or web address] Work Phone: Start: 06-26-2016 End: 06-26-2016 Follow Up Appt 2 months Follow Up Appt 2 months [employer] [facility] Work Phone: Start: 06-26-2016 End: 06-26-2016 MMM MMM [email or web address] Work Phone: Start: 06-26-2016 End: 06-26-2016 MobStacrnl mobile cv telemetry w/i&report 30 days 30 Day Holter Monitor [email or web address] Work Phone: Start: 06-26-2016 End: 06-26-2016 Ct head/brain w/o & w/contrast material CT Head/Brain with and without Contrast [email or web address] Work Phone: Start: 06-26-2016 End: 06-26-2016 Ecg routine ecg w/least 12 lds w/i&r EKG (In office) [facility] Work Phone: Start: 06-26-2016 End: 06-26-2016 Echocardiography Echocardiogram (complete) [email or web address] Work Phone: Start: 06-26-2016 End: 06-26-2016 Follow Up Appt 2 months Follow Up Appt 2 months [facility] Work Phone: Start: 06-26-2016 End: 06-26-2016 MMM MMM [email or web address] Work Phone: Start: 06-26-2016 End: 06-26-2016 Xtrnl mobile cv telemetry w/i&report 30 days 30 Day Holter Monitor [facility] Work Phone: Start: 10-18-2015 Urine microalbumin profile [facility] Start: 04-23-2012 Screening for malignant neoplasm of cervix Cervical Cancer Screening [facility] Start: 01-29-2012 RSV Vaccine (1 - 1-dose 75+ series) RSV Vaccine (1 - 1-dose 75+ series) [facility] Start: 01-19-2007 Pneumococcal Vaccine: 50+ (2 of 2 - PCV) Pneumococcal Vaccine: 50+ (2 of 2 - PCV) [facility] Start: 01-19-2007 Pneumococcal Vaccine: 65+ (2 - PCV) Pneumococcal Vaccine: 65+ (2 - PCV) [facility] Start: 01-19-2007 PNEUMOCOCCAL: 65+ (2 - PCV) PNEUMOCOCCAL: 65+ (2 - PCV) [facility] Start: 1987 SHINGRIX VACCINE (1 of 2) SHINGRIX VACCINE (1 of 2) [facility] Start: 01-29-1956 SHINGRIX VACCINE (1 of 2) SHINGRIX VACCINE (1 of 2) [facility] Start: 1955 Anxiety Screening Anxiety Screening [facility] Start: 1955 Depression Screening Depression Screening [facility] Albumin [Moles/volum e] in Serum or Plasma [facility] Albumin/Globulin ratio [facility] Electrophoresis: [id number] [facility] Electrophoresis: josep ma globulin [facility] Globulin measurement [facility] IgA [Mass/volume] in Serum or Plasma [facility] IgG [Mass/volume] in Serum or Plasma [facility] IgM [Mass/volume] in Serum or Plasma [facility] Patient Education [facility] Work Phone: Patient referral [facility] Work Phone: Protein electrophore sis panel - Serum or Plasma [facility] Serum protein electrophoresis [facility] Immunizations Immunization Date Immunization Notes Care Provider Vera franco 07-19-2020 COVID-19 vaccine, ag e 12+ yr (PFIZER-BIONTECH - PURPLE TOP) Kamille Melendez MD Work Phone: [facility] 06-26-2020 COVID-19 vaccine, ag e 12+ yr (PFIZER-BIONTECH - PURPLE TOP) Kamille Melendez MD Work Phone: [facility] 02-01-2011 influenza virus vacc ine, unspecified formulation Kamille Melendez MD Work Phone: [facility] Work Phone: 02-06-2010 influenza virus vacc ine, unspecified formulation Kamille Melendez MD Work Phone: [facility] Work Phone: 02-06-2009 influenza virus vacc ine, unspecified formulation Kamille Melendez MD Work Phone: [facility] Work Phone: 03-01-2008 influenza virus vacc ine, unspecified formulation Kamille Melendez MD Work Phone: [facility] Work Phone: 03-02-2007 influenza virus vacc ine, unspecified formulation Kamille Melendez MD Work Phone: [facility] Work Phone: 03-02-2006 influenza virus vacc ine, unspecified formulation Kamille Melendez MD Work Phone: [facility] Work Phone: 01-19-2006 pneumococcal polysaccharide vaccine, 23 valent Kamille Melendez MD Work Phone: [facility] Work Phone: 10-17-2005 diphtheria and tetan us toxoids, adsorbed for pediatric use Kamille Melendez MD Work Phone: [facility] Work Phone: 03-06-2005 influenza virus vacc ine, unspecified formulation Kamille Melendez MD Work Phone: [facility] Work Phone: Payers Date Payer Category Payer Self-pay [id number] 2021 Medicare AETNA MEDICARE A ETNA MEDICARE PPO [id number] 2021-Present [phone] [address] [place] [address] PPO [id number] 2021 Medicare AETNA MEDICARE A ETNA MEDICARE PPO [id number] 2021-Present [phone] [address] [place] [address] PPO [id number] 2015 Private Health Insurance [id number] Unknown [id number] 2.16.840.1.101150.3.579.2.4 62 Unknown [id number] 2.16.840.1.137747.3.579.2.4 62 Unknown [id number] 2.16.840.1.874902.3.579.2.4 62 Unknown [id number] 2.16.840.1.554022.3.579.2.4 62 Unknown [id number] 2.16.840.1.046304.3.579.2.4 62 Unknown [id number] 2.16.840.1.873429.3.579.2.4 62 Unknown [id number] 2.16.840.1.919331.3.579.2.4 62 Unknown [id number] 2.16.840.1.615243.3.579.2.4 62 Unknown [id number] 2.16.840.1.491703.3.579.2.4 62 Unknown [id number] 2.16.840.1.644087.3.579.2.4 62 Unknown [id number] 2.16.840.1.058962.3.579.2.4 62 Unknown [id number] 2.16.840.1.447694.3.579.2.4 62 Unknown [id number] 2.16.840.1.584513.3.579.2.4 62 Unknown [id number] 2.16.840.1.913320.3.579.2.4 62 Unknown [id number] 2.16.840.1.868931.3.579.2.4 62 Unknown [id number] 2.16.840.1.377951.3.579.2.4 62 Unknown [id number] 2.16.840.1.258207.3.579.2.4 62 Unknown [id number] 2.16.840.1.746727.3.579.2.4 62 Unknown [id number] 2.16.840.1.004984.3.579.2.4 62 Unknown [id number] 2.16.840.1.421192.3.579.2.4 62 Unknown [id number] 2.16.840.1.244844.3.579.2.4 62 Unknown [id number] 2.16.840.1.352682.3.579.2.4 62 Unknown [id number] 2.16.840.1.960126.3.579.2.4 62 Unknown [id number] 2.16.840.1.414282.3.579.2.4 62 Unknown [id number] 2.16.840.1.250566.3.579.2.4 62 Unknown [id number] 2.16.840.1.583093.3.579.2.4 62 Social History Date Type Detail Facility Start: 12-25-2021 End: 07-13-2024 Tobacco smoking status NHIS Never smoked tobacco [facility] Start: 08-21-2021 End: 07-21-2022 Alcohol intake Current non-drinker of alcohol (finding) [facility] Start: 1935 Sex Assigned At Not on file [facility] Start: 09-30-2021 End: 08-02-2023 Tobacco smoking status NHIS Unknown if ever smoked [facility] Start: 1935 Sex Assigned At Female W [facility] Start: 09-22-2021 End: 01-03-2022 Exposure to SARS-CoV-2 (event) Not sure [facility] Start: 12-25-2021 Tobacco use and exposure Smokeless tobacco non-user [facility] Start: 07-19-2015 None [facility] Start: 07-19-2015 Non-smoker [facility] Start: 07-21-2022 End: 04-14-2024 History of Social function [facility] Start: 07-21-2022 End: 04-14-2024 Tobacco use panel [facility] National Score (1-100), lower number is lower risk 48 [facility] Start: 07-13-2024 Sex Female (finding) [facility] Medical Equipment Procedure Code Equipment Code Equipment Origin al Text Equipment Identifier Dates Graft Dura 2x2in [facility] - [id number] Start: 03-03-2011 Comment on above: Description: duragen plus [place] Hole Cover 10mm - [id number] Start: 03-03-2011 Comment on above: Description: lauren ho le cover Plate Micro 2-Ho le 10mm Bar - [id number] Start: 03-03-2011 Comment on above: Description: 2-hole plate Screw Self Drilling 1.5x4mm - [id number] Start: 03-03-2011 Comment on above: Description: screw Mental Status Date Assessment Result Facility 08-02-2023 Cognitive function Level Of Cons ciousness Awake;Alert;Appropriate;Drowsy [facility] Work Phone: 09-30-2021 Cognitive function Voice/Name [facility] Work Phone: Clinical Notes 03-27-2009 to 07-06-2024 Note Date & Type Note Facility 07-06-2024 Radiology Diagnostic study note [facility] Imaging Services [address] [place], [place] [address] Soft Tissue Neck WITH Contrast MR#: [id number] Acct: [id number] Name: SUSAN SENIOR Rep #: [id number] : 1935 F 89 From: Marco Antonio Denton MD PCP: Dr. Olga Hurst MD Status: REG CLI Study:Soft Tissue Neck WITH Contrast Date of Exam: 07/06/24 Exam# [id number] Ordering Dr: Olga Hurst MD PROCEDURE: SOFT TISSUE NECK WITH CONTRAST REASON FOR EXAM: Arthritis OF SPINE: LARGE HIATAL HERNIA, ON XRAY SHOWING SOMETHING. Deviated trachea on radiographs. TECHNIQUE: CT of the soft tissues of the neck from the orbits to the upper mediastinum withintravenous contrast. CONTRAST: 75 cc of Isovue 370. COMPARISON: None. 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 Salivary glands: Unremarkable. Lymph nodes: No cervical lymphadenopathy. Thyroid: 7 mm hypodense nodule in the anterior aspect of the upper pole of the right lobe of the thyroid suggestive of possible cyst or adenoma. Vasculature: Carotid arteries and internal jugular veins are unremarkable. Orbits: Unremarkable at visualized levels. Paranasal sinuses and mastoids: Grossly clear at visualized levels. Lung apices: Clear. Upper mediastinum: Visualized mediastinum is unremarkable. Bones: Multilevel degenerative changes of the spine. Straightening of the normal cervical lordosis. CT/Soft Tissue Neck WITH Contrast IMPRESSION: The trachea is displaced towards the right side of the midline due to volume loss in the right upper lobe. No mass lesion is seen. One or more dose reduction techniques were used (e.g., Automated exposure control, adjustment of the mA and/or kV according to patient size, use of iterative reconstruction technique). Reading Location: [place] [address] CC: Dr. Olga Hurst MD ~ Production Planning Manager: Signed [facility] 04-14-2024 Evaluation note Diagnosis Onset Date Resolution Carpal tunnel syndrome, right resolved April 14, 2 024 8:19am Trigeminal neuropathy chronic Fe ru2024 12:52pm Carpal tunnel syndrome, right resolved June 16, 025 12:52pm Cubital tunnel syndrome on right inactive June 16, 2024 12:52pm Candidal intertrigo acute July 13, 2024 9:35am Cystocele acute July 13 9:35am [facility] Work Phone: 1(824) 360-803012-19-2024 History of Present illness Narrative* Rosmery Perez Mammo Tech - 04/14/2024 9:30 AM EST Radiology Service Progress Note PATIENT NAME: Susan Senior DATE OF SERVICE: April 14, 2024 TIME: 10:29 AM PATIENT IDENTITY VERIFICATION COMPLETED USING TWO (2) IDENTIFIERS: Name and Date of confirmedby patient verbally. FALL SCREENING: Has the patient had 2 falls in the last year or 1 fall with injury or currently using an Ambulatory Assistive Device (Walker, Cane, Wheelchair, Crutches, etc.)? No PATIENT GENDER DATA: Female. status: : No status: NO. PATIENT RELEVANT IMPLANT DATA REVIEWED: Not Applicable PATIENT PRESENTS WITH AN IMPLANTABLE OR ATTACHED BUSINESS MANAGEMENT ASSOCIATE: No RADIOLOGY DEPARTMENT: Mammography PERIPHERAL IV DATA: Not applicable SIGNED BY: Zelda Ventura April 14, 2024 10:29 AM [facility] NoteHNO ID: [id number] Author: ROSMERY PEREZ Mammo Tech Service: ? Author Type: Elementary School Director Type: Progress Notes Filed: 04/14/2024 10:29 Note Text: Radiology Service Progress Note PATIENT NAME: Susan Senior DATE OF SERVICE: April 14, 2024 TIME: 10:29 AM PATIENT IDENTITY VERIFICATION COMPLETED USING TWO (2) IDENTIFIERS: Name and Date of confirmed by patient verbally. FALL SCREENING: Has the patient had 2 falls in the last year or 1 fall with injury or currently using an Ambulatory Assistive Device (Walker, Cane, Wheelchair, Crutches, etc.)? No PATIENT GENDER DATA: Female. status: : No status: NO. PATIENT RELEVANT IMPLANT DATA REVIEWED: Not Applicable PATIENT PRESENTS WITH AN IMPLANTABLE OR ATTACHED BUSINESS MANAGEMENT ASSOCIATE: No RADIOLOGY DEPARTMENT: Mammography PERIPHERAL IV DATA: Not applicable SIGNED BY: Rosmery Perez [employer] April 14, 2024 10:29 [facility]10-23-2024 [facility] Medical Records Department [address] [place] [address] History Physical Exam 02/17/24 0809 MR#: [id number] Acct: [id number] Name: SUSAN SENIOR Rep #: [id number] : 1935 89 From: Pavel Cartagena MD PCP: Dr. Olga Hurst MD Status:[facility] Location: [place] [address] HPI - General HPI Narrative SUSAN SENIOR, is a 89 F who presents for right endoscopic carpal tunnel release. no changes to h and p. Ok to proceed. right wrist marked. rab and post op instructions discussed. typically no narcotics after surgery. no further questions or concerns. will proceed. MR#: [id number] Acct: [id number] Name: SUSAN SENIOR Rep #: [id number] : 1935 Provider: Dr. Pavel Cartagena MD Age/Sex: 88/F Location[place] [facility] Status: Signed Intake Vital Signs 12/22/2407:27 Height 5 ft 2 in Weight: 166 lb 10 oz BMI 30.4 BP 120/60 Blood Pressure Location Rt brachial Position Sitting Respiration 17 Pulse 67 Pulse Source Monitor Temp 98.2 F Temp Source Temporal Pulse Oximetry (%) 98 Oxygen Delivery Method room air Intake Visit Reasons: RIGHT HAND Chief Complaint: carpal tunnel Allergies amoxicillin (Amoxicillin) Allergy (Severe, Verified 01/18/24 13:19) Swellingcyclobenzaprine HCl (From Flexeril) Allergy (Severe, Verified 01/18/24 13:19) Swellingdiclofenac sodium (From Voltaren) Allergy (Severe, Verified 01/18/24 13:19) Swellingdicyclomine Allergy (Severe, Verified 01/18/24 13:19) Swellingketoprofen (From Oruvail) Allergy (Severe, Verified 01/18/24 13:19) Swellingsulfabenzamide Allergy (Severe, Verified 01/18/24 13:19) Anaphylaxistramadol Allergy (Unknown, Verified 01/18/24 13:19) Unknownhydroxychloroquine (From Plaquenil) Allergy (Verified 01/18/24 13:21) Hiveshydroxyzine HCl (From Atarax) Allergy (Verified 01/18/24 13:19) Swellingprednisone Allergy (Verified 01/18/24 13:19) Hivespseudoephedrine HCl (From Sudafed) Allergy (Verified 01/18/24 13:19) Othercephalexin Adverse Reaction (Severe, Verified 01/18/24 13:19) Rashclindamycin Adverse Reaction (Severe, Verified 01/18/24 13:19) Hivescodeine Adverse Reaction (Severe, Verified 01/18/24 13:19) Upset Stomach Medications ???Medication ???Instructions ???Recorded ???Confirmed ???Type methotrexate sodium 2.5 mg tablet 25 mg PO QWEEK 07/12/21 01/18/24 History calcium citrate 315 mg 2 tab PO BID Supplement Kettle Operator Head 09/16/22 01/18/24 History calcium-vitamin D3 6.25 mcg (250 unit) tablet folic acid 1 mg tablet 2 mg PO DAILY 09/16/22 01/18/24 History leucovorin calcium 15 mg tablet 15 mg PO QWEEK 09/16/22 01/18/24 History loratadine 10 mg tablet 10 mg PO DAILY PRN nasal/sinus 02/04/23 01/18/24 Rx congestion/drainage #10 tabs albuterol sulfate 90 mcg/actuation 2 puff inhalation Q4H PRN PRN 08/02/23 01/18/24 Rx aerosol inhaler (Ventolin HFA) Wheezing 30 days #6.7 grams lisinopril 10 mg tablet 10 mg PO BID blood pressure #180 10/05/23 01/18/24 Rx tabs acetaminophen 650 mg 650 mg PO Q8H 10/27/23 01/18/24 History tablet,extended release (Tylenol Arthritis Pain) atorvastatin 20 mg tablet 20 mg PO DAILY 10/27/23 01/18/24 History famotidine 20 mg tablet 20 mg PO DAILY PRN 10/27/23 01/18/24 History (Zantac-360 (famotidine)) ferrous sulfate 325 mg (65 mg 325 mg PO QDAY 10/27/23 01/18/24 History iron) tablet (FeroSul) gabapentin 100 mg capsule 100 mg PO BID #60 caps 12/22/23 01/18/24 Rx Have you fallen in the past year?: Yes (September) PFSH Medical History COVID-19 Rheumatoid arthritis Pure hypercholesterolemia Essential hypertension Incontinence Back pain Limb weakness Shoulder pain Hemorrhoids Arthritis Syncope Brain tumor Chest pressure Surgical History History of back surgery History of breast biopsy History of appendectomy History of knee replacement procedure of left knee History of brain surgery Family History Mother Heart diseaseFather Heart diseaseOther Cancer Social History Smoking Status: Never smoker second hand exposure: No alcohol intake: never substance use type: does not use what type of physical activity do you participate in: none wolf/adventism: Faith seatbelt use: always HPI RIGHT HAND Details: This documentation accurately reflects the service provided and the decisions made by me, Dr. Pavel Cartagena MD 01/18/24 1304. Part of today???s visit was documented by [ ], acting as scribe. SUSAN NATEDUDLEY is a 88 year old F he (more content not included)...[facility]05-01-2024 Procedure [facility]04-07-2024 Discharge summary Author Chadwick Marin [facility] August 02, 2023 4:04pm Note Date/Time August 02, 2023 3:05 pm [facility] Medical Records Department [address] [place] [address] Emergency Department Summary 08/02/23 MR#: [id number] Acct: [id number] Name: THIERRYSUSAN ANNEMARIE Rep #:[id number] : 1935 88 From: Chadwick Marin DO PCP: Dr. Olga Hurst MD Status:REG ER Location: ED HPI <ASHLEIGH Holden - Last Filed: 08/02/23 15:58> History of Present Illness Chief Complaint: General Illness Narrative Narrative: 88-year-old female with past medical history of hypertension, hyperlipidemia hashad a productive cough for 3 days. This morning her chest felt tight so she went to the [facility] clinic. She states the provider listened to her heart or lungs and prescribed a Z-Mathew for pneumonia. She did not have any imaging done. She took the first dose around noon and an hour later felt lightheaded and had 2episodes of diarrhea. She is concerned this is a medication allergic reaction since she has a lot of allergies. She denies fever or chills. She states herchest tightness has significantly lessened since this morning. She does not smoke or have a history of asthma or COPD. [facility] <ASHLEIGH Holden - Last Filed: 08/02/23 15:58> [facility] Medical History Arthritis Back pain Brain tumor Chest pressure COVID-19 Essential hypertension Hemorrhoids Incontinence Limb weakness Pure hypercholesterolemia Rheumatoid arthritis Shoulder pain Syncope Home Medications aspirin 81 mg chewable tablet 81 mg PO DAILY@0800 heart health 11/10/13 [History Last Taken Unknown] atorvastatin 20 mg tablet 20 mg PO QHS cholesterol 30 days #30 tabs 03/15/18 [History Last Taken Unknown] methotrexate sodium 2.5 mg tablet 25 mg PO QWEEK 07/12/21 [History Last Taken Unknown] calcium citrate 315 mg calcium-vitamin D3 6.25 mcg (250 unit) tablet 2 tab PO BID Supplement Kettle Operator Head 09/16/22 [History Last Taken Unknown] folic acid 1 mg tablet 2 mg PO DAILY 09/16/22 [History Last Taken Unknown] leucovorin calcium 15 mg tablet 15 mg PO QWEEK 09/16/22 [History Last Taken Unknown] lisinopril 10 mg tablet 10 mg PO BID blood pressure #180 tabs 10/01/22 [Rx Last Taken Unknown] loratadine 10 mg tablet 10 mg PO DAILY PRN nasal/sinus congestion/drainage #10 tabs 02/04/23 [Rx Last Taken Unknown] gabapentin 100 mg capsule 100 mg PO BID #60 caps 07/29/23 [Rx Last Taken Unknown] albuterol sulfate 90 mcg/actuation aerosol inhaler (Ventolin HFA) 2 puff inhalation Q4H PRN PRN Wheezing 30 days #6.7 grams 08/02/23 [Rx Last Taken Unknown] azithromycin 250 mg tablet (Zithromax Z-Mathew) See Rx Instructions PO .COMPLEX #6 tabs 08/02/23 [Rx Last Taken Unknown] doxycycline hyclate 100 mg tablet 100 mg PO BID #14 tabs 08/02/23 [Rx Last Taken Unknown] Allergy/AdvReac Type Severity Reaction Status Date / Time amoxicillin [Amoxicillin] Allergy Severe Swelling Verified 08/02/23 14:20 cyclobenzaprine HCl Allergy Severe Swelling Verified 08/02/23 14:20 [From Flexeril] diclofenac sodium Allergy Severe Swelling Verified 08/02/23 14:20 [From Voltaren] dicyclomine Allergy Severe Swelling Verified 08/02/23 14:20 ketoprofen [From Oruvail] Allergy Severe Swelling Verified 08/02/23 14:20 sulfabenzamide Allergy Severe Anaphylaxis Verified 08/02/23 14:20 tramadol Allergy Unknown Unknown Verified 08/02/23 14:20 hydroxyzine HCl [From Atarax] Allergy Swelling Verified 08/02/23 14:20 prednisone Allergy Hives Verified 08/02/23 14:20 pseudoephedrine HCl Allergy Other Verified 08/02/23 14:20 [From Sudafed] cephalexin AdvReac Severe Rash Verified 08/02/23 14:17 clindamycin AdvReac Severe Hives Verified 08/02/23 14:20 codeine AdvReac Severe Upset Verified 08/02/23 14:20 Stomach Family History Mother Heart disease Father Heart disease Other Cancer Surgical History History of appendectomy History of back surgery History of brain surgery History of breast biopsy History of knee replacement procedure of left knee Social History Smoking Status: Never smoker second hand exposure: No alcohol intake: never substance use type: does not use what type of physical activity do you participate in: none wolf/adventism: Faith seatbelt use: always ROS <Jyoti Glauthier, PA - Last Filed: 08/02/23 15:58> ROS ED ROS Narrative Constitutional: Negative for fever, chills, malaise. CVS: Positive for chest tightness. No palpitations. Respiratory: Positive for cough. Negative for shortness of breath. GI: Positive for diarrhea. Negative for abdominal pain, nausea, vomiting, constipation, melena, hematochezia. EXAM <ASHLEIGH Holden Last Filed: 08/02/23 15:58> Physical Exam Narrative Exam Narrative: CONST: Patient sitting in no acute distress. EYES: Normal inspection. NECK: Normal inspection. RESP: No respiratory distress, expiratory wheezing in all lung bullard. CVS: Regular rate and rhythm, no murmur, no gallop. ABD: Soft and nontender, no guarding or rebound, nondistended. SKIN: Color normal, no rash, warm, dry, intact. EXTREMITIES: Normal appearance, no pedal edema. NEURO: Alert and answering questions appropriately. PSYCH: Normal affect. Const Vital Signs: 08/02/23 14:14 08/02/23 14:14 08/02/23 14:57 Temperature 97.4 F L Temperature Source Temporal Pulse Rate 77 75 Respiratory Rate 16 18 Respiratory Pattern Normal Normal Blood Pressure 118/53 L Blood Pressure Mean 74 Pulse Ox 97 Oxygen Delivery Method Room Air <Dr. Chadwick Marin DO - Last Filed: 08/02/23 16:04> Physical Exam Const Vital Signs: 08/02/23 14:14 08/02/23 14:14 08/02/23 14:57 Temperature 97.4 F L Temperature Source Temporal Pulse Rate 77 75 Respiratory Rate 16 18 Respiratory Pattern Normal Normal Blood Pressure 118/53 L Blood Pressure Mean 74 Pulse Ox 97 Oxygen Delivery Method Room Air MDM <ASHLEIGH Holden Last Filed: 08/02/23 15:58> MDM MDM Narrative Medical decision making narrative: Patient has recent URI symptoms with chest tightness. She was prescribed Z-Mathew this morning from urgent care and states after taking it she felt lightheaded and had 2 episodes of diarrhea. She appears well and nontoxic. Vital signs arestable. Exam is notable for expiratory wheezing in all lung bullard so I ordereda DuoNeb. She does not smoke or have history of COPD. CBC shows normal white count of 5.2 and chronic anemia at 10.0. BMP is unremarkable. EKG is nonischemic and troponin is 7. CXR shows no acute process and viral swab is negative. I prescribed an albuterol inhaler and doxycycline. I will avoid prednisone as this is listed on her allergies. Patient saturations remained stable and she is appropriate for outpatient management. I discussed return precautions and she was discharged in stable condition. Lab Data Attestation: I reviewed the patient's lab results. Labs: Laboratory Results - last 24 hr 08/02/23 14:46 WBC 5.2 RBC 4.03 L Hgb 10.0 L Hct 33.1 L MCV 82.1 MCH 24.8 L MCHC 30.2 L RDW Std Deviation 51.1 H RDW Coeff of Lizbet 17.3 H Plt Count 191 MPV 9.9 Immature Gran % (Auto) 0.400 Neut % (Auto) 59.5 Lymph % (Auto) 18.7 L [place] % (Auto) 16.8 H Eos % (Auto) 4.0 Baso % (Auto) 0.6 Absolute Neuts (auto) 3.1 Absolute Lymphs (auto) 0.98 Nucleated RBC % 0 Sodium 139 Potassium 3.9 Chloride 107 Carbon Dioxide 26.0 Anion Gap 6 BUN 23 H Creatinine 0.87 Estim Creat Clear Calc 45.50 Est GFR (MDRD) Af Amer 79 Est GFR (MDRD) Non-Af 66 BUN/Creatinine Ratio 26.4 H Glucose 103 Calcium 8.8 Troponin I High Sens 7 Radiography Diagnostic Testing: Clinical Impression(s) from Imaging Studies Chest X-Ray 08/02/23 14:50 IMPRESSION: There are no acute findings. Electronically Signed: Denis Ceballos MD at 15:14 EDT , ED attending interpretation of 2-view chest x-ray shows normal heart size, no acute infiltrate, edema, or effusion. <Dr. Chadwick Marin, DO - Last Filed: 08/02/23 16:04> [facility] Narrative Medical decision making narrative: Patient has recent URI symptoms with chest tightness. She was prescribed Z-Mathew this morning from urgent care and states after taking it she felt lightheaded and had 2 episodes of diarrhea. She appears well and nontoxic. Vital signs arestable. Exam is notable for expiratory wheezing in all lung bullard so I ordereda DuoNeb. She does not smoke or have history of COPD. CBC shows normal white count of 5.2 and chronic anemia at 10.0. BMP is unremarkable. EKG is nonischemic and troponin is 7. CXR shows no acute process and viral swab is negative. I prescribed an albuterol inhaler and doxycycline. I will avoid prednisone as this is listed on her allergies. Patient saturations remained stable and she is appropriate for outpatient management. I discussed return precautions and she was discharged in stable condition. This patient was seen with a PA/TERMINAL WORKER Individually assessed they patient including history and physical. I have reviewed everything on the chart that is availableand agree with the documentation provided by the PA/TERMINAL WORKER including discussion about the assessment, treatment plan, discussion, and return precautions. Patient presenting with URI symptoms. States started Thursday. She was seen in urgent care and did not have a chest x-ray but did have viral testing she statesthat COVID-negative. She is placed on a Z-Mathew but had a reaction to this she believes. Vital signs are stable and she is afebrile. No trouble swallowing orbreathing. She was given breathing treatments but we held off on steroids due to her allergy to prednisone and she has multiple allergies and she is concernedwith taking medications. Blood work obtained to rule out cardiac etiology and her CBC shows normal blood cell count of 5.2. Hemoglobin 10.0. Platelets are normal at 191. Renal function electrolytes within normal limits. High-sensitivity troponin is 7. EKG on my interpretation showed a sinus rhythm at 72bpm without sign of ischemic change or ectopy. At this point I feel the patientis stable for discharge home. COVID, influenza, RSV are negative. Patient was placed on albuterol and doxycycline as she has tolerated this in the past. Return precautions discussed. Lab Data Labs: Laboratory Results - last 24 hr 08/02/23 14:46 WBC 5.2 RBC 4.03 L Hgb 10.0 L Hct 33.1 L MCV 82.1 MCH 24.8 L MCHC 30.2 L RDW Std Deviation 51.1 H RDW Coeff of Lizbet 17.3 H Plt Count 191 MPV 9.9 Immature Gran % (Auto) 0.400 Neut % (Auto) 59.5 Lymph % (Auto) 18.7 L [place] % (Auto) 16.8 H Eos % (Auto) 4.0 Baso % (Auto) 0.6 Absolute Neuts (auto) 3.1 Absolute Lymphs (auto) 0.98 Nucleated RBC % 0 Sodium 139 Potassium 3.9 Chloride 107 Carbon Dioxide 26.0 Anion Gap 6 BUN 23 H Creatinine 0.87 Estim Creat Clear Calc 45.50 Est GFR (MDRD) Af Amer 79 Est GFR (MDRD) Non-Af 66 BUN/Creatinine Ratio 26.4 H Glucose 103 Calcium 8.8 Troponin I High Sens 7 Radiography Diagnostic Testing: Clinical Impression(s) from Imaging Studies Chest X-Ray 08/02/23 14:50 IMPRESSION: There are no acute findings. Electronically Signed: Denis Ceballos MD at 15:14 EDT Reading Location ID and State: [facility] / [place] , Service support , Discharge Plan Triage Chief Complaint: General Illness ED Midlevel Provider: Jyoti Pearson ED Provider: Chadwick Marin Dx/Rx/DC Orders Clinical Impression: Acute bronchitis with bronchospasm Instructions: ED Bronchitis with Wheezing (Adult) Prescriptions: New albuterol sulfate [Ventolin HFA] 90 mcg/actuation HFA aerosol inhaler 2 puff inhalation Q4H PRN PRN (Reason: Wheezing) 30 Days Qty: 6.7 0RF doxycycline hyclate 100 mg tablet 100 mg PO BID Qty: 14 0RF No Action atorvastatin 20 mg tablet 20 mg PO QHS 30 Days Qty: 30 Hold Instructions: myalgias folic acid 1 mg tablet 2 mg PO DAILY methotrexate sodium 2.5 mg tablet 25 mg PO QWEEK loratadine 10 mg tablet 10 mg PO DAILY PRN (Reason: nasal/sinus congestion/drainage) Qty: 10 0RF leucovorin calcium 15 mg tablet 15 mg PO QWEEK Patient Comments: Take 1 Tablet(s) Oral once a week lisinopril 10 mg tablet 10 mg PO BID Qty: 180 3RF gabapentin 100 mg capsule 100 mg PO BID Qty: 60 5RF azithromycin [Zithromax Z-Mathew] 250 mg tablet See Rx Instructions PO .COMPLEX Qty: 6 0RF Rx Instructions: For 250 mg dose pack: take 500 mg today (day 1), then 250 mg for 4 days (days2- 5) PO aspirin 81 MG tablet,chewable 81 mg PO DAILY@0800 Patient Comments: heart health calcium citrate-vitamin D3 315 mg-6.25 mcg (250 unit) tablet 2 tab PO BID Patient Comments: vitamin Primary Care Provider: Olga Hurst Referrals: Olga Hurst MD [Primary Care Provider] - Activity Restrictions/Additional Instructions: I think you have a virus causing the cough. I prescribed an albuterol inhaler and doxycycline. You can stop taking the Z-Mathew. Please follow-up with your primary care doctor. Disposition Disposition: Home, Self Care What to do if you have Problems For any increased pain, shortness of breath, bleeding, nausea or vomiting, chestpain, or any unexpected problems, contact your Primary Care Provider. Call [facility] ([phone]) or report to the closest Emergency Room. Call 911 if necessary. 08/02/23 1604 <Electronically signed by Chadwick Marin DO> Cosigner Signature (if applicable): 08/02/23 1557 <Electronically signed by Jyoti SOTELO> CC: Dr. Olga Hurst MD ~ Signed [facility] Work Phone: [phone]) 528-919610-05-2023 Miscellaneous Notes* Letter - Coordinator, Mammography - 01/29/2023 12:19 PM EDT January 30, 2023 PID: [id number] Susan Senior [address] [place] [address] Dear Ms. Senior, We are pleased to [...] report will be kept on file at [facility] as part of your permanent medical record and are available for your continuing care. Thank you for allowing us to help in meeting your health care needs. Sincerely, Dr. Bella Interpreting Radiologist [facility] (Normal over 40) documented in this encounterSelect [facility] [place]03-27-2023 History of Present illness Narrative* Kamille Melendez MD - 07/21/2022 1:23 PM EDT Patient Office Rep offered: godwin Senior is a 87 year [...] L3 SAB0 IAB0 Ectopic0 Multiple0 Live Births0 Lamp Shade Maker History LMP: Postmenopausal Age at Menarche: Age at First : Age at Menopause: Lamp Shade Maker History Comments: Sexual Activity: Not Currently; Male [...] A WEEK FOR 1-2 WEEKS THEN INCREASE TAKING5 TABLETS ONCE A WEEK folic acid 1 mg tablet Take 2 mg by mouth once daily. clotrimazole-betamethasone (LOTRISONE) cream Apply 1 application to affected area twice daily. fluconazole (DIFLUCAN) 150 mg tablet Take one tablet today and one tablet in 3 days metroNIDAZOLE (METROGEL VAGINAL) 0.75 % Vaginal Gel Twice weekly vaginally x 6 months after initialcourse of flagyl miSOPROStol (CYTOTEC) 200 mcg tablet [...] external genitalia normal, normal Bartholin's glands, urethra, [place]'s glands, no vulvar lesions, no cervical lesions, [...] necessary to wear it again at this time.She will keep it and notify the office if that changes. I spent a total of 20 minutes on the date of the service which included preparing to see the patient, [id number] patient care, completing clinical documentation, obtaining and/or reviewing separately obtained history, performing a medically appropriate examination, and counseling and educating the patient/family/caregiver Medical Decision Making: Medical Decision Making Level: 1 - N/A Kamille Lemus MD documented in this encounterSelect [facility] [place] History of Present illness Narrative* Kamille Melendez MD - 07/09/2022 8:09 AM EDT Susan Senior is a 87 year old who presents today for pessary insertion/cleaning. She wears aring with support pessary. She returns today some spotting occasionally. She has not had problems with the pessary. She has not had vaginal discharge. Denies Odors, discharge. EXAM: pleasant, well developed, well nourished, in no apparent distress Pelvic: Bartholin's, urethra and [place]'s glands were normal. The ring with support [...] which included preparing to see the patient, [id number] patient care, completing clinical documentation, obtaining and/or reviewing separately obtained history, performing a medically appropriate examination, and counseling and educating the patient/family/caregiver. Kamille Lemus MD documented in this encounterSelect [facility] [place]2023 History of Present illness Narrative* Kamille Melendez MD - 05/28/2022 10:02 AM EST Patient Office Rep offered: Patient declines. Susan Senior is a 87 year old female who presents for pessary maintenance. Patient reports is doing well. Denies any vaginal bleeding, foul odor. Patient reports minimal itching on the outside of the vagina at times but nothing that is bothersome. Patient offers no other concerns today. OB History T0 L3 SAB0 IAB0 Ectopic0 Multiple0 Live Births0 Lamp Shade Maker History LMP: Postmenopausal Age at Menarche: Age at First : Age at Menopause: Lamp Shade Maker History Comments: Sexual Activity: Not Currently; Male [...] A WEEK FOR 1-2 WEEKS THEN INCREASE TAKING5 TABLETS ONCE A WEEK folic acid 1 mg tablet Take 2 mg by mouth once daily. clotrimazole-betamethasone (LOTRISONE) cream Apply 1 application to affected area twice daily. fluconazole (DIFLUCAN) 150 mg tablet Take one tablet today and one tablet in 3 days metroNIDAZOLE (METROGEL VAGINAL) 0.75 % Vaginal Gel Twice weekly vaginally x 6 months after initialcourse of flagyl miSOPROStol (CYTOTEC) 200 mcg tablet [...] difficulty. There were no ulcerations or masses appreciated.Normal physiologic discharge was appreciated. Cervix appeared normal. [...] which included preparing to see the patient, [id number] patient care, completing clinical documentation, obtaining and/or reviewing separately obtained history, and performing a medically appropriate examination counseling/educating patient. Medical Decision Making: Medical Decision Making Level: 1 - N/A Kamille Lemus MD documented in this encounterSelect [facility] [place] History of Present illness Narrative* Kamille Melendez MD - 02/24/2022 11:04 AM EDT Patient Office Rep offered: Patient declines. Susan Senior is a 87 year old female who presents for pessary maintenance. Patient reports is doing well. No vaginal bleeding, no abnormal discharge. Patient does states she has some irritation on the outside of the vagina but the cream that was given last time is helping. Heading to [place] to see her family. OB History T0 L3 SAB0 IAB0 Ectopic0 Multiple0 Live Births0 Lamp Shade Maker History LMP: Postmenopausal Age at Menarche: Age at First : Age at Menopause: Lamp Shade Maker History Comments: Sexual Activity: Not Currently; Male [...] A WEEK FOR 1-2 WEEKS THEN INCREASE TAKING5 TABLETS ONCE A WEEK folic acid 1 mg tablet Take 2 mg by mouth once daily. clotrimazole-betamethasone (LOTRISONE) cream Apply 1 application to affected area twice daily. fluconazole (DIFLUCAN) 150 mg tablet Take one tablet today and one tablet in 3 days metroNIDAZOLE (METROGEL VAGINAL) 0.75 % Vaginal Gel Twice weekly vaginally x 6 months after initialcourse of flagyl miSOPROStol (CYTOTEC) 200 mcg tablet [...] which included preparing to see the patient, [id number] patient care, completing clinical documentation, obtaining and/or reviewing separately obtained history, performing a medically appropriate examination, and counseling and educating the patient/family/caregiver Medical Decision Making: Medical Decision Making Level: 1 - N/A Kamille Lemus MD documented in this encounterSelect [facility] [place]-16-2022 Miscellaneous Notes* Letter - Mammography Coordinator - 01/10/2022 3:04 PM EDT January 10, 2022 PID: [id number] Susan Senior [address] [place] [address] Dear Ms. Senior, We are pleased to [...] report will be kept on file at [facility] as part of your permanent medical record and are available for your continuing care. Thank you for allowing us to help in meeting your health care needs. Sincerely, Dr. Anthony Interpreting Radiologist [facility] (Normal over 40) documented in this encounterSelect [facility] [place]09-16-2022 History of Present illness Narrative* RT Ashly(R) - 01/10/2022 12:30 PM EDT Radiology Service Progress Note PATIENT NAME: Susan Senior DATE OF SERVICE: January 10, 2022 TIME: 12:32 PM PATIENT IDENTITY VERIFICATION COMPLETED USING TWO (2) IDENTIFIERS: Name and Date of confirmedby patient verbally. FALL SCREENING: Has the patient [...] 10, 2022 12:32 PM documented in this encounterSelect [facility] [place] History of Present illness Narrative* Kamille Melendez MD - 12/25/2021 8:04 AM EDT Patient Office Rep offered: Patient declines. Susan Senior is a 86 year old female who presents for pessary maintenance. Patient reports ports no concerns. She denies any foul odors, itching burning or discharge. She states she did notice blood-tinged discharge this morning. Patient reports is using Goldbond on her groin for irritation. Patient offers no other concerns today. OB History T0 L3 SAB0 IAB0 Ectopic0 Multiple0 Live Births0 Lamp Shade Maker History LMP: Postmenopausal Age at Menarche: Age at First : Age at Menopause: Lamp Shade Maker History Comments: Sexual Activity: Not Currently; Male [...] A WEEK FOR 1-2 WEEKS THEN INCREASE TAKING5 TABLETS ONCE A WEEK folic acid 1 mg tablet Take 2 mg by mouth once daily. clotrimazole-betamethasone (LOTRISONE) cream Apply 1 application to affected area twice daily. fluconazole (DIFLUCAN) 150 mg tablet Take one tablet today and one tablet in 3 days metroNIDAZOLE (METROGEL VAGINAL) 0.75 % Vaginal Gel Twice weekly vaginally x 6 months after initialcourse of flagyl miSOPROStol (CYTOTEC) 200 mcg tablet [...] is some light bloody discharge noted. Pessary wascleaned and coated with lubrication gel. This time speculum exam revealed no ulcerations but there was some vaginal irritation on the left side but was had some pinpoint oozing. At this time decisionwas made to replace pessary. Patient tolerated well. Patient also has significant yeast dermatitis i n bilateral groin extending to under the pannus. NEURO: alert and oriented x3,exam grossly non-focal EXTREMITIES: normal ASSESSMENT AND PLAN: Encounter Diagnosis ICD-10-CM 1. Female genital prolapse, unspecified type N81.9 2. Pessary maintenance Z46.89 3. Vaginal irritation from pessary ([facility]) T83.89XA N89.8 4. Yeast dermatitis B37.2 5. Lotrisone and Diflcuan ordered. Medical Decision Making: Problems: Low: Acute, uncomplicated illness or injury Risk: Moderate: Drug management Medical Decision Making Level: 3 - Low Kamille Lemus MD documented in this encounterSelect [facility] [place]07-[facility]-2022 History of Present illness Narrative* Kamille Melendez MD - 11/13/2021 3:09 PM EDT Susan Senior is a 86 year old female who presents for pessary maintenance. Patient is doing well.Patient denies any vaginal bleeding, odors, itching or burning. She reports no dysuria. Patient offers no other concerns today. OB History T0 L3 SAB0 IAB0 Ectopic0 Multiple0 Live Births0 Lamp Shade Maker History LMP: Postmenopausal Age at Menarche: Age at First : Age at Menopause: Lamp Shade Maker History Comments: Sexual Activity: Not Currently; Male [...] A WEEK FOR 1-2 WEEKS THEN INCREASE TAKING5 TABLETS ONCE A WEEK folic acid 1 mg tablet Take 2 mg by mouth once daily. clotrimazole-betamethasone (LOTRISONE) cream Apply 1 application to affected area twice daily. fluconazole (DIFLUCAN) 150 mg tablet Take one tablet today and one tablet in 3 days metroNIDAZOLE (METROGEL VAGINAL) 0.75 % Vaginal Gel Twice weekly vaginally x 6 months after initialcourse of flagyl miSOPROStol (CYTOTEC) 200 mcg tablet [...] which included preparing to see the patient, [id number] patient care, completing clinical documentation, obtaining and/or reviewing separately obtained history, performing a medically appropriate examination and counseling and educating the patient/family/caregiver Kamille Lemus MD documented in this encounterSelect [facility] [place]06-08-2022 History of Present illness Narrative* Kamille Melendez MD - 10/02/2021 8:05 AM EDT Susan Senior is a 86 year old female who presents for pessary maintenance. Patient reports is doing well. Denies any vaginal bleeding, foul odors. She reports occasional itching on the external vagina but no other concerns. No pain with urination. She does have urgency which is normal for her. OB History T0 L3 SAB0 IAB0 Ectopic0 Multiple0 Live Births0 Lamp Shade Maker History LMP: Postmenopausal Age at Menarche: Age at First : Age at Menopause: Lamp Shade Maker History Comments: Sexual Activity: Not Currently; Male [...] A WEEK FOR 1-2 WEEKS THEN INCREASE TAKING5 TABLETS ONCE A WEEK folic acid 1 mg tablet Take 2 mg by mouth once daily. clotrimazole-betamethasone (LOTRISONE) cream Apply 1 application to affected area twice daily. fluconazole (DIFLUCAN) 150 mg tablet Take one tablet today and one tablet in 3 days metroNIDAZOLE (METROGEL VAGINAL) 0.75 % Vaginal Gel Twice weekly vaginally x 6 months after initialcourse of flagyl miSOPROStol (CYTOTEC) 200 mcg tablet [...] which included preparing to see the patient, [id number] patient care, completing clinical documentation, obtaining and/or reviewing separately obtained history, performing a medically appropriate examination and counseling and educating the patient/family/caregiver Kamille Lemus MD documented in this encounterSelect [facility] [place]04-27-2022 History of Present illness Narrative* aKmille Melendez MD - 08/21/2021 8:37 AM EDT Susan Senior is a 86 year old female who presents for pessary maintenance. Patient reports is doing well. Denies any vaginal discharge, odors, vaginal bleeding. She reports occasional external irritation and itching. No difficulty with urination. OB History T0 L3 SAB0 IAB0 Ectopic0 Multiple0 Live Births0 Lamp Shade Maker History LMP: Postmenopausal Age at Menarche: Age at First : Age at Menopause: Lamp Shade Maker History Comments: Sexual Activity: Not Currently; Male [...] SURGERY HX 09/2016 BIOPSY BREAST OPEN INCISIONAL 2003 Bx of breast, incisional LIG/TRNSXJ FLP TUBE [...] A WEEK FOR 1-2 WEEKS THEN INCREASE TAKING5 TABLETS ONCE A WEEK folic acid 1 mg tablet Take 2 mg by mouth once daily. clotrimazole-betamethasone (LOTRISONE) cream Apply 1 application to affected area twice daily. fluconazole (DIFLUCAN) 150 mg tablet Take one tablet today and one tablet in 3 days metroNIDAZOLE (METROGEL VAGINAL) 0.75 % Vaginal Gel Twice weekly vaginally x 6 months after initialcourse of flagyl miSOPROStol (CYTOTEC) 200 mcg tablet [...] cleaned and coated with Trimo-Ordonez. It was replacedthat difficulty. Patient tolerated well. NEURO: alert and oriented x3,exam grossly non-focal EXTREMITIES: normal ASSESSMENT AND PLAN: Encounter Diagnosis ICD-10-CM 1. Pessary maintenance Z46.89 2. Female genital prolapse, unspecified type N81.9 3. RTO 6 wks for pessary maintenance I spent a total of 20 minutes on the date of the service which included preparing to see the patient, [id number] patient care, completing clinical documentation, obtaining and/or reviewing separately obtained history, performing a medically appropriate examination and counseling and educating the patient/family/caregiver Kamille Lemus MD documented in this encounterSelect Medical [facility] [place]05-01-2017 Fall risk assessment [facility]Asc[facility] HospitalFall [facility] assessmentW[facility] Work Phone: 1(480) 620-294512-01-2009 History of Past illness Narrative* Problem Noted [...] examination 11/28/2008 09/23/2011 Overview: Dr. Maxwell Qureshi, [facility], [facility] Pain in joint, lower leg 05/02/2005 008 Hypertension 09/23/2011 Preop exam for internal medicine 09/23/2011 documented as of this encounter (statuses as of 08/21/2021) [facility]12-01-2009 History of Past illness Narrative* Problem Noted [...] examination 11/28/2008 09/23/2011 Overview: Dr. Maxwell Qureshi, [facility], [facility] Pain in joint, lower leg 05/02/2005 008 Hypertension 09/23/2011 Preop exam for internal medicine 09/23/2011 documented as of this encounter (statuses as of 10/02/2021) [facility] History of Past illness Narrative* Problem Noted [...] examination 11/28/2008 09/23/2011 Overview: Dr. Maxwell Qureshi, [facility], [facility] Pain in joint, lower leg 05/02/2005 008 Hypertension 09/23/2011 Preop exam for internal medicine 09/23/2011 documented as of this encounter (statuses as of 11/13/2021) [facility] History of Past illness Narrative* Problem Noted [...] examination 11/28/2008 09/23/2011 Overview: Dr. Maxwell Qureshi, [facility], [facility] Pain in joint, lower leg 05/02/2005 008 Hypertension 09/23/2011 Preop exam for internal medicine 09/23/2011 documented as of this encounter (statuses as of 12/25/2021) [facility] History of Past illness Narrative* Problem Noted [...] examination 11/28/2008 09/23/2011 Overview: Dr. Maxwell Qureshi, [facility], [facility] Pain in joint, lower leg 05/02/2005 008 Hypertension 09/23/2011 Preop exam for internal medicine 09/23/2011 documented as of this encounter (statuses as of 01/12/2022) [facility] History of Past illness Narrative* Problem Noted [...] examination 11/28/2008 09/23/2011 Overview: Dr. Maxwell Qureshi, [facility], [facility] [place] Pain in joint, lower leg 05/02/2005 008 Hypertension 09/23/2011 Preop exam for internal medicine 09/23/2011 documented as of this encounter (statuses as of 01/14/2022) [facility]12-01-2009 History of Past illness Narrative* Problem Noted [...] examination 11/28/2008 09/23/2011 Overview: Dr. Maxwell Qureshi, [facility], [facility] [place] Pain in joint, lower leg 05/02/2005 008 Hypertension 09/23/2011 Preop exam for internal medicine 09/23/2011 documented as of this encounter (statuses as of 02/24/2022) [facility]12-01-2009 History of Past illness Narrative* Problem Noted Date Resolved Date Solitary cyst of breast 03/27/2009 09/23/19 12 Symptomatic menopausal or female climacteric sta brayan 12/19/2008 09/23/2011 Urgency of urination 12/19/2008 09/23/2011 Nocturia 12/19/2008 09/23/2011 Screening for malignant neoplasm of the cervix 0 12/19/2008 09/23/2011 Breast screening, unspecified 12/19/2008 Routine general medical exam ination at a health care facility 11/28/2008 09/23/2011 Overview: 11/28/2008, from [facility] (retired) Routine gynecological examination 11/28/2008 09/23/2011 Overview: Dr. Maxwell Qureshi, [facility], [facility] [place] Pain in joint, lower leg 05/02/2005 008 Hypertension 09/23/2011 Preop exam for internal medicine 09/23/2011 documented as of this encounter (statuses as of 05/28/2022) [facility]12-01-2009 History of Past illness Narrative* Problem Noted [...] examination 11/28/2008 09/23/2011 Overview: Dr. Maxwell Qureshi, [facility], [facility] [place] Pain in joint, lower leg 05/02/2005 008 Hypertension 09/23/2011 Preop exam for internal medicine 09/23/2011 documented as of this encounter (statuses as of 07/09/2022) [facility]12-01-2009 History of Past illness Narrative* Problem Noted [...] examination 11/28/2008 09/23/2011 Overview: Dr. Maxwell Qureshi, [facility], [facility] [place] Pain in joint, lower leg 05/02/2005 008 Hypertension 09/23/2011 Preop exam for internal medicine 09/23/2011 documented as of this encounter (statuses as of 07/21/2022) [facility]12-01-2009 History of Past illness Narrative* Problem Noted [...] Overview: Dr. Maxwell Qureshi, [facility], [facility] Pain in joint, lower leg 05/02/2005 Hypertension 09/23/2011 Preop exam for internal medicine 09/23/2011 documented as of this encounter (statuses as of 01/31/2023) [facility] complaint+Reason for visit Narrative* Chief Complaint COVID 19 sob 1 y fu PREV PFM PT RULE OUT DVT Reason for Visit COVID-19 Essential hypertension Pure hypercholesterolemia [facility] Work Phone: Evaluation note* Diagnosis Pessary maintenance- Primary Fitting and adjustment of other device Female genital prolapse, unspecified type [facility] Diagnosis Onset Date Resolution Status Essential hypertension chron ic Pure hypercholesterolemia ch ronic [facility] Work Phone: Evaluation noteNo assessment information available [facility] Work Phone: Evaluation note* Diagnosis Female genital prolapse, unspecified type- Primary Pessary maintenance Fitting and adjustment of other device Vaginal irritation from pessary (HCC) Unspecified noninflammatory disorder of vagina Yeast dermatitis Candidiasis of skin and nails [facility] Diagnosis Pessary maintenance- Primary Fitting and adjustment of other device Female genital prolapse, unspecified type [facility] Diagnosis Female genital prolapse, unspecified type- Primary Pessary maintenance Fitting and adjustment of other device [facility] Diagnosis Onset Date Resolution Status Polyneuropathy acute 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 [facility] Work Phone: Evaluation note* Diagnosis Onset Date Resolution Status Polyneuropathy acute Trigeminal neuropathy chroni c [facility] Work Phone: Evaluation note* Diagnosis Vaginal inflammation from pessary, initial encounter (HCC)- Primary Female genital prolapse, unspecified type Pessary maintenance Fitting and adjustment of other device [facility] Diagnosis Female genital prolapse, unspecified type- Primary [facility] Diagnosis Onset Date Resolution Status Polyneuropathy acute Trigeminal neuropathy [facility]i [facility] Work Phone: Evaluation note* Diagnosis Onset Date Resolution Status COVID-19 acute Essential hypertension chron ic Pure hypercholesterolemia ch ronic [facility] Work Phone: Evaluation note* Diagnosis Onset Date Resolution Status Sinusitis, acute acute Polyneuropathy chronic Trigeminal neuropathy chroni c [facility] Work Phone: Evaluation note* Diagnosis Onset Date Resolution Status Carpal tunnel syndrome, right acute Sinusitis, acute acute Polyneuropathy chronic Pneumonia acute [facility] Work Phone: Hospital Discharge instructions Additional Instructions I think you have a virus causing the cough. I prescribed an albuterol inhaler and doxycycline. You can stop taking the Z-Mathew. Please follow-up with your primary care doctor. [facility] Work Phone: Reason for referral (narrative)No reason for referral information availableWJoint [facility] Work Phone: Chief Complaint and Reason for Visit Chief Complaint 9 m fu NEURO SX Reason for Visit Essential hypertensi on Pure hypercholesterolemia Chief Complaint 9 m fu NEURO SX CA OF THE BRAIN Reason for Visit Essential hypertensi on Pure hypercholesterolemia Chief Complaint NEURO SX CA OF THE BRAIN Chief Complaint FACIAL PARESTHESIA 4 M FU Reason for Visit Polyneuropathy Trigeminal neuropathy Polyneuropathy Trigeminal neuropathy Chief Complaint 4 M FU Reason for Visit Polyneuropathy Trigeminal neuropathy Chief Complaint 4 M FU COVID 19 sob Reason for Visit Polyneuropathy Trigeminal neuropathy COVID-19 Chief Complaint 8 MO FU Reason for Visit Sinusitis, acute Polyneuropathy Trigeminal neuropathy Chief Complaint 6 M FU Cough GENERAL ILLNESS Reason for Visit Carpal tunnel syndro me, right Sinusitis, acute Polyneuropathy Pneumonia Chief Complaint 6 M FU Cough GENERAL ILLNESS PARESTHESIA OF SKIN PARESTHESIA OF SKIN Reason for Visit Carpal tunnel syndro me, right Sinusitis, acute Polyneuropathy Pneumonia Chief Complaint Admit Date RIGHT WRIST April 14, 2024 8:19am ABNORMAL BI May 16, 2024 1 0:41am Pain June 07, 2024 5:10pm 6 M FU June 16, 2024 12:52pm LARGE HIATAL HERNIA July 06, 2024 6:3 5am PROLAPSE OF ANTERIOR VAGINAL WALL ([place]) July 13, 2024 9:35am Reason for Visit Admit Date Carpal tunnel syndrome, right March 272023 8:19am Trigeminal neuropathy June 16 12:52pm Carpal tunnel syndrome, right May 292024 12:52pm Cubital tunnel syndrome on right [id number] 12:52pm Candidal intertrigo July 13, 2024 9:3 5am Cystocele July 13, 2024 9:3 5am Family History Relationship Condition Age at Onset Recorded Date/T latonya Not Specified Malignant neoplasm Unknown mother Cardiac disease Unknown father Cardiac disease Unknown Advance Directives Advance Directive Response Recorded Date/ Time Advance Directives Yes July 02 11:57pm Living Will Yes September 30, 2021 9 :58am Power of Investigation Clerk Yes September 30, 2021 9:58am Advance Directive Response Recorded Date/ Time Name of Medical Power of Investigation Clerk daughter, debr a September 30, 2021 9:58am Advance Directives Yes July 02 11:57pm Living Will Yes September 30, 2021 9 :58am Power of Investigation Clerk Yes September 30, 2021 9:58am Advance Directive Response Recorded Date/ Time Advance Directives Yes July 02 10:57pm Living Will Yes September 30, 2021 8 :58am Power of Investigation Clerk Yes September 30, 2021 8:58am Advance Directive Response Recorded Date/ Time Name of Medical Power of Investigation Clerk HELENA CARRILLO August 01, 2022 7:41pm Advance Directives Yes July 02 11:57pm Living Will Yes August 01, 2022 7:41pm Power of Investigation Clerk Yes August 01 7:41pm Advance Directive Response Recorded Date/ Time Advance Directives Yes July 02 10:57pm Living Will Yes August 01, 2022 6:41pm Power of Investigation Clerk Yes August 01 6:41pm Advance Directive Response Recorded Date/ Time Advance Directives Yes July 02 11:57pm Living Will No August 02, 2023 2:14pm Power of Investigation Clerk No August 01 2:14pm Advance Directive Response Recorded Date/ Time Living Will No October 06, 2023 11:39pm Do you have a Healthcare Power of Investigation Clerk? No October 06, 2023 11:39pm Advance Directives Yes July 02 11:57pm Summary Purpose Additional Source Comments Source Comments (unrecognize d section and content) In the event this informatio n is protected by the Federal Confidentiality of Alcohol and Drug Abuse Patient Records regulations: The Federal rules restrict any use of the information to criminally investigate or prosecute any alcohol or drug abuse patient.[facility] the event this information is protected by the Federal Confidentiality of Alcohol and Drug Abuse Patient Records regulations: The Federal rules restrict any use of the information to criminally investigate or prosecute any alcohol or drug abuse patient.[facility] the event this information is protected by the Federal Confidentiality of Alcohol and Drug Abuse Patient Records regulations: The Federal rules restrict any use of the information to criminally investigate or prosecute any alcohol or drug abuse patient.[facility] the event this information is protected by the Federal Confidentiality of Alcohol and Drug Abuse Patient Records regulations: The Federal rules restrict any use of the information to criminally investigate or prosecute any alcohol or drug abuse patient.[facility] the event this information is protected by the Federal Confidentiality of Alcohol and Drug Abuse Patient Records regulations: The Federal rules restrict any use of the information to criminally investigate or prosecute any alcohol or drug abuse patient.[facility] the event this information is protected by the Federal Confidentiality of Alcohol and Drug Abuse Patient Records regulations: The Federal rules restrict any use of the information to criminally investigate or prosecute any alcohol or drug abuse patient.[facility] the event this information is protected by the Federal Confidentiality of Alcohol and Drug Abuse Patient Records regulations: The Federal rules restrict any use of the information to criminally investigate or prosecute any alcohol or drug abuse patient.[facility] the event this information is protected by the Federal Confidentiality of Alcohol and Drug Abuse Patient Records regulations: The Federal rules restrict any use of the information to criminally investigate or prosecute any alcohol or drug abuse patient.[facility] the event this information is protected by the Federal Confidentiality of Alcohol and Drug Abuse Patient Records regulations: The Federal rules restrict any use of the information to criminally investigate or prosecute any alcohol or drug abuse patient.[facility] the event this information is protected by the Federal Confidentiality of Alcohol and Drug Abuse Patient Records regulations: The Federal rules restrict any use of the information to criminally investigate or prosecute any alcohol or drug abuse patient.[facility] the event this information is protected by the Federal Confidentiality of Alcohol and Drug Abuse Patient Records regulations: The Federal rules restrict any use of the information to criminally investigate or prosecute any alcohol or drug abuse patient.[facility] the event this information is protected by the Federal Confidentiality of Alcohol and Drug Abuse Patient Records regulations: The Federal rules restrict any use of the information to criminally investigate or prosecute any alcohol or drug abuse patient.[facility] Reason for Visit (unrecogniz ed section and content) Reason Comments Pessary Reason Comments Follow Up Pessary insertion Care Teams (unrecognized sec tion and content) Purchasing Specialist Relationship Specialty Start Date End Date Olga Hurst PCP - General Family Practice 07/09/16 Purchasing Specialist Relationship Specialty Start Date End Date Olga Hurst PCP - General Family Practice 07/09/16 Purchasing Specialist Relationship Specialty Start Date End Date Olga Hurst PCP - General Family Practice 07/09/16 Purchasing Specialist Relationship Specialty Start Date End Date Olga Hurst PCP - General Family Practice 07/09/16 Purchasing Specialist Relationship Specialty Start Date End Date Olga Hurst PCP - General Family Medicine 07/09/16 Team Status: Active Member Role Status Dates Dr. Olga Hurst MD Family Provider Active Dr. Olga Hurst MD Primary Care Provider Active Team Status: Inactive Member Role Status Dates Dr. Olga Hurst MD Primary Care Provider, Referrin g Provider Active Dr. Jb Joiner MD Attending Provider Active Team Status: Inactive Member Role Status Dates Dr. Olga Hurst MD Primary Care Provider Active Dr. Sherin Patel MD Attending Provider Active Dr. Jb Joiner MD Other Provider Active Team Status: Inactive Member Role Status Dates Dr. Olga Hurst MD Primary Care Provider, Referrin g Provider Active Dr. Sherin Patel MD Attending Provider Active Team Status: Active Member Role Status Dates Dr. Olga Hurst MD Primary Care Provider, Referrin g Provider Active Dr. Jb Joiner MD Attending Provider Active Purchasing Specialist Relationship Specialty Start Date End Date Olga Hurst PCP - General Family Medicine 07/09/16 Purchasing Specialist Relationship Specialty Start Date End Date Olga Hurst PCP - General Family Medicine 07/09/16 Team Status: Inactive Member Role Status Dates Dr. Olga Hurst MD Primary Care Provider, Referrin g Provider Active Sal Judd PA, PA Attending Provider Active Team Status: Inactive Member Role Status Dates Dr. Olga Hurst MD Primary Care Provider Active Dr. Fred Blum MD Emergency Provider Active Team Status: Inactive Member Role Status Dates Dr. Olga Hurst MD Primary Care Provider Active Dr. Fred Blum MD Attending Provider, Emergency Provider Active Team Status: Inactive Member Role Status Dates Dr. Olga Hurst MD Primary Care Provider Active Dr. Sherin Patel MD Attending Provider Active Team Status: Inactive Member Role Status Dates Dr. Olga Hurst MD Primary Care Provider, Referrin g Provider Active Daphnie Kline PA, PA Attending Provider Active Team Status: Inactive Member Role Status Dates Dr. Olga Hurst MD Primary Care Provider Active Diamond Gomes MD Attending Provider, Referring Provide r Active Purchasing Specialist Relationship Specialty Start Date End Date Olga Hurst PCP - General Family Medicine 07/09/16 Team Status: Inactive Member Role Status Dates Dr. Olga Hurst MD Primary Care Provider, Attendin g Provider Active Team Status: Inactive Member Role Status Dates Dr. Olga Hurst MD Primary Care Provider Active Dr. Chadwick Marin DO Emergency Provider Active Team Status: Inactive Member Role Status Dates Dr. Olga Hurst MD Primary Care Provider Active Dr. Chadwick Marin DO Attending Provider, Emergency Provider Active Team Status: Active Member Role Status Dates Dr. Olga Hurst MD Primary Care Provider Active Dr. Jb Joienr MD Referring Provider, Other Pro vider Active Dr. Kimani Flowers MD Attending Provider Active Team Status: Inactive Member Role Status Dates Dr. Olga Hurst MD Primary Care Provider Active Dr. Jb Joiner MD Attending Provider, Referring Provider Active Purchasing Specialist Relationship Specialty Start Date End Date Olga Hurst PCP - General Family Medicine 07/09/16 Team Status: Active Member Role Status Dates Dr. Olga Hurst MD Primary Care Provider Active Team Status: Inactive Member Role Status Dates Dr. Olga Hurst MD Primary Care Provider Active Start: April 14, 2024 End: April 14, 2024 Dr. Olga Hurst MD Referring Provider Active Start: April 14, 2024 End: April 14, 2024 Pavel Cartagena MD Attending Provider Active St art: April 14, 2024 End: April 14, 2024 Team Status: Inactive Member Role Status Dates Dr. Olga Hurst MD Primary Care Provider Active Start: May 16, 2024 End: May 16, 2024 Dr. Olga Hurst MD Attending Provider Active Start: May 16, 2024 End: May 16, 2024 Dr. Olga Hurst MD Referring Provider Active Start: May 16, 2024 End: May 16, 2024 Team Status: Inactive Member Role Status Dates Dr. Olga Hurst MD Primary Care Provider Active Start: June 07, 2024 End: June 07, 2024 Dr. Olga Hurst MD Attending Provider Active Start: June 07, 2024 End: June 07, 2024 Dr. Olga Hurst MD Referring Provider Active Start: June 07, 2024 End: June 07, 2024 Team Status: Inactive Member Role Status Dates Dr. Olga Hurst MD Primary Care Provider Active Start: June 16, 2024 End: June 16, 2024 Dr. Olga Hurst MD Referring Provider Active Start: June 16, 2024 End: June 16, 2024 Dr. Jb Joiner MD Attending Provider Active Start: June 16, 2024 End: June 16, 2024 Team Status: Inactive Member Role Status Dates Dr. Olga Hurst MD Primary Care Provider Active Start: July 06, 2024 End: July 06, 2024 Dr. Olga Hurst MD Attending Provider Active Start: July 06, 2024 End: July 06, 2024 Dr. Olga Hurst MD Referring Provider Active Start: July 06, 2024 End: July 06, 2024 Team Status: Inactive Member Role Status Dates Dr. Olga Hurst MD Primary Care Provider Active Start: July 13, 2024 End: July 13, 2024 Dr. Olga Hurst MD Referring Provider Active Start: July 13, 2024 End: July 13, 2024 Dr. Farncine Pierce MD Attending Provider Active Start: July 13, 2024 End: July 13, 2024 Goals (unrecognized section and content) Goals may be documented in a n alternate sectionGoals may be documented in an alternate sectionGoals may be documented in an alternate sectionGoals may be documented in an alternate sectionGoals may be documented in an alternate sectionGoals may be documented in an alternate sectionGoals may be documented in an alternate sectionGoals may be documented in an alternate sectionGoals may be documented in an alternate sectionGoals may be documented in an alternate sectionGoals may be documented in an alternate sectionGoals may be documented in an alternate sectionGoals may be documented in an alternate section INFORMATION SOURCE (unrecogn ized section and content) DATE CREATED AUTHOR 04/17/2024 [facility] DATE CREATED AUTHOR AUTHOR'S ORGANIZ ATION 07/16/2024 [facility] FOR RECORDS PERTAINING TO PATIENTS WHO ARE [...] BE BASED ON THE PRIMARY CLINICAL RECORDS. [facility] [employer] [facility]. provides no warranty or guarantee of the accuracy or completeness of information in this document.
[2024-10-09 22:06] VITALS: BP 135/58; PULSE 78; RESP 16; O2SAT 99
[2024-10-09] MEDS: Acetaminophen 500 MG Tablet 1000 MG PO (23:56)
[2024-10-09 23:57] VITALS: BMI 31.3
--- NOTE | 2024-10-09 23:58 | EX.ED.GENINJ ---
HPI History of Present Illness Chief Complaint: Fall Informant: patient and family Narrative Narrative: 89-year-old female presenting to the emergency room for evaluation of injury sustained from a fall. Patient states that she had placed the walker behind her and was taking off her shoes when she lost her balance and fell backwards landing in a sitting position and then coming down onto her left elbow. She notes pain in the low back and tailbone and left posterior hip region. She notes pain in the left elbow. She denies striking her head. She denies any upper back pain. She does have a history of rheumatoid arthritis as well as chronic low back pain and sees pain management. Patient was able to get up and ambulate with the assistance of family. 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 09/16/22 Unknown History citrate)-vitamin D3 6.25 mcg (250 unit) tablet albuterol sulfate 90 mcg/actuation 2 puff inhalation Q4H PRN PRN 08/02/23 Unknown Rx aerosol inhaler (Ventolin HFA) Wheezing 30 days #6.7 grams acetaminophen 650 mg 650 mg PO Q8H 10/27/23 02/17/24 History tablet,extended release (Tylenol Arthritis Pain) atorvastatin 20 mg tablet 20 mg PO DAILY 10/27/23 Unknown History gabapentin 100 mg capsule 100 mg PO TID #90 caps 06/16/24 Unknown Rx ferrous sulfate 325 mg (65 mg 325 mg PO QDAY PRN 07/13/24 Unknown History iron) tablet (FeroSul) nystatin 100,000 unit/gram topical 1 applic topical BID #45 ea 07/13/24 Unknown Rx powder (Nystop) oxybutynin chloride 10 mg 10 mg PO QDAY 07/13/24 Unknown History tablet,extended release 24 hr lisinopril 10 mg tablet 10 mg PO BID blood pressure #180 10/04/24 Unknown Rx tabs Allergy/AdvReac Type Severity Reaction Status Date / Time amoxicillin (Amoxicillin) Allergy Severe Swelling Verified 10/09/24 20:07 cyclobenzaprine HCl (From Allergy Severe Swelling Verified 10/09/24 20:07 Flexeril) diclofenac sodium (From Allergy Severe Swelling Verified 10/09/24 20:07 Voltaren) dicyclomine Allergy Severe Swelling Verified 10/09/24 20:07 ketoprofen (From Oruvail) Allergy Severe Swelling Verified 10/09/24 20:07 sulfabenzamide Allergy Severe Anaphylaxis Verified 10/09/24 20:07 tramadol Allergy Unknown Unknown Verified 10/09/24 20:07 hydroxychloroquine (From Allergy Hives Verified 10/09/24 20:07 Plaquenil) hydroxyzine HCl (From Atarax) Allergy Swelling Verified 10/09/24 20:07 prednisone Allergy Hives Verified 10/09/24 20:07 pseudoephedrine HCl (From Allergy Other Verified 10/09/24 20:07 Sudafed) cephalexin AdvReac Severe Rash Verified 10/09/24 20:07 clindamycin AdvReac Severe Hives Verified 10/09/24 20:07 codeine AdvReac Severe Upset Verified 10/09/24 20:07 Stomach Family History Mother Heart disease Father Heart disease Other Cancer Surgical History History of back surgery History of breast biopsy History of appendectomy History of knee replacement procedure of left knee History of brain surgery Social History number of children: 3 Smoking Status: Never smoker second hand exposure: No alcohol intake: never substance use type: does not use what type of physical activity do you participate in: none wolf/restoration: Advent seatbelt use: always ROS ROS ED Constitutional Constitutional ED: Denies chills or weight loss Eyes Eyes: Denies change in vision or diplopia ENT ENT ED: Denies ear pain, rhinorrhea or sore throat Cardiovascular Cardiovascular: Denies chest pain, orthopnea, palpitations or racing heartbeat Respiratory/Chest Respiratory/Chest: Denies cough, dyspnea or orthopnea Gastrointestinal Gastrointestinal: Denies abdominal pain, diarrhea, nausea or vomiting Genitourinary Genitourinary ED: Denies dysuria, hematuria or urinary frequency Musculoskeletal Musculoskeletal: Reports back pain and other Details: See history of present illness ; Denies arthralgias or myalgias Integumentary Denies abscess, Abrasions or rash Neurologic Neurologic: Denies headache(s) or weakness Psychiatric Psychiatric: Denies anxiety, depression, suicidal ideation or suicidal thoughts Endocrine Endocrinology: Denies polydipsia, polyphagia or polyuria Allergic/Immunologic Allergic/Immunologic ED: Denies mouth swelling, tongue swelling or urticaria EXAM Physical Exam Const Vital Signs: 10/09/24 20:07 10/09/24 21:34 10/09/24 22:06 Temperature 97.8 F Temperature Source Temporal Pulse Rate 72 78 Respiratory Rate 20 H 16 Respiratory Effort Normal Respiratory Depth Normal Respiratory Pattern Normal Blood Pressure 144/61 H 135/58 H Blood Pressure Mean 88 83 Pulse Ox 100 99 Oxygen Delivery Method Room Air Room Air Positive well nourished and well developed General Appearance ED: well developed and NAD HEENT Reports normocephalic, head/scalp atraumatic and moist mucous membranes Eyes PERRL and EOMs intact bilaterally Neck full ROM, no lymphadenopathy, supple and no JVD General: Negative for tenderness Resp normal respiratory effort and clear to auscultation bilaterally Cardio regular rate, regular rhythm and no murmurs GI normal to inspection, nondistended, normoactive bowel sounds and non-tender Palpation: soft Back/Spine no CVA tenderness Back/Spine Narrative: Patient has mild tenderness to palpation in the midline of the lumbar spine and the sacrum. Patient has some mild tenderness over the lateral elbow on the left side. There is no laceration or significant hematoma noted. Neurovascular intact distal. Extremity Extremity Narrative: She has mild tenderness to palpation over the posterior greater trochanter region. Is no shortening or rotation of the leg. Negative logroll. Neurovascular the patient appears intact General Extremety ED: Negative for deformity or edema General Extremity: Negative for deformity or edema Neuro oriented x3 and CN's II-XII intact bilaterally Sensorium / Orientation: alert Motor Exam: strength 5/5 throughout Psych mental status grossly normal Mood & Affect: Negative for depressed or tearful Skin no rashes or lesions noted and no wounds MDM MDM MDM Narrative Medical decision making narrative: Differential diagnosis includes lumbar compression fracture sacral fracture pelvic fracture hip fracture elbow fracture My independent interpretation plain films of the left elbow is no acute fracture. On the initial view there is concern over the medial aspect but she is able to range the elbow and I agree with radiology that this is most likely shadowing. CT of the lumbar spine and pelvis was obtained. This was read by radiology. History & Record Review Discussion w/independent historian: Patient and Family Radiography Diagnostic Testing: Clinical Impression(s) from Imaging Studies Elbow X-Ray 10/09/24 21:10 IMPRESSION: No definite fracture Reading Location: [facility] Discharge Plan Triage Chief Complaint: Fall ED Provider: Jarvis Ariza Dx/Rx/DC Orders Prescriptions: No Action atorvastatin 20 mg tablet 20 mg PO DAILY acetaminophen [Tylenol Arthritis Pain] 650 mg tablet extended release 650 mg PO Q8H ferrous sulfate [FeroSul] 325 mg (65 mg iron) tablet 325 mg PO QDAY PRN gabapentin 100 mg capsule 100 mg PO TID Qty: 90 8RF oxybutynin chloride 10 mg tablet extended release 24hr 10 mg PO QDAY nystatin [Nystop] 100,000 unit/gram powder 1 applic topical BID Qty: 45 7RF calcium citrate-vitamin D3 315 mg-6.25 mcg (250 unit) tablet 1 tab PO BID Patient Comments: vitamin albuterol sulfate [Ventolin HFA] 90 mcg/actuation HFA aerosol inhaler 2 puff inhalation Q4H PRN PRN (Reason: Wheezing) 30 Days Qty: 6.7 0RF lisinopril 10 mg tablet 10 mg PO BID Qty: 180 3RF Primary Care Provider: Rubin Rodriguez Referrals: Rubin Rodriguez MD [Primary Care Provider] - Print Language: Malaysian
[2024-10-10] VITALS (8 sets, daily range): BP systolic 110–149; BP diastolic 52–57; PULSE 63–99; RESP 14–18; TEMP 36.3–37.2; O2SAT 94–99; BMI 30.7
--- NOTE | 2024-10-10 02:02 | HP.PCM.HOS_ITS ---
[facility] - General General Date of Admission: 10/10/24 Date of Service: 10/10/24 Chief Complaint: Fall HPI Zabrina GUADARRAMA, is a 89 F who presented to the emergency department [facility] on 10/09/2024 with a chief complaint of mechanical fall. Patient states that she had placed her wheeled walker behind her and was taking her shoes off and lost her balance and fell backwards landing in a sitting position and then coming back down on her left elbow. On presentation, she complained about pain in her low back and tailbone as well as the left posterior hip region. She also had some mild elbow pain. She did not strike her head. She is having no upper back pain. She does have chronic pain as well as rheumatoid arthritis and follows with Dr. Jones. In fact, she has an appointment to see him tomorrow. She was able to get up from the position she was in and ambulate with assistance of family and they brought her to the emergency department. She had extensive imaging none of which showed any acute fracture however when the emergency department physician tried to get her up to mobilize her she had significant difficulty and did poorly ambulating due to pain in her back and pelvis. Vital signs on presentation showed a temperature of 97.8, heart rate 72, respiratory 20, blood pressure was 144/61 and pulse ox is 100% on room air. CBC shows chronic thrombocytopenia which is stable but is otherwise unremarkable. Chemistry panel was pending at the time of admission. CT of the lumbar spine shows straightened lumbar lordosis due to muscle spasm, first-degree anterior listhesis at L4 which is stable, stable L3 vertebral body compression fracture with previous kyphoplasty and significant degenerative disc disease as well as lumbar spondylosis with facet arthropathy at multiple levels. CT of the pelvis shows no obvious fracture or dislocation, mild bilateral hip osteoarthritic changes and degenerative changes of the sacroiliac joint. X-ray of the elbow is unremarkable. Initial plan was try to get her home however she had difficulty ambulating therefore require observation with anticipated less than 2 midnight hospitalization for pain management and therapy evaluation. [facility] Medical History (Updated 10/10/24 @ 02:[address] Priyanka Cobos, ) Thrombocytopenia Wears glasses Wears hearing aid Wears dentures Post-menopausal Ambulates with cane Walker as ambulation aid Low iron High cholesterol Restless legs Heartburn Non-smoker Leg cramps History of echocardiogram Cardiology follow-up encounter COVID-19 Rheumatoid arthritis Pure hypercholesterolemia Essential hypertension Incontinence Back pain Limb weakness Shoulder pain Hemorrhoids Arthritis Syncope Brain tumor Chest pressure Home Medications ?Medication ?Instructions ?Recorded ?Last Taken ?Type calcium 315 mg (as 1 tab PO BID Supplement Home Service Advisor 09/16/22 Unknown History citrate)-vitamin D3 6.25 mcg (250 unit) tablet albuterol sulfate 90 mcg/actuation 2 puff inhalation Q 4H PRN PRN 08/02/23 Unknown Rx aerosol inhaler (Ventolin HFA) Wheezing 30 days #6.7 g alberto acetaminophen 650 mg 650 mg PO Q8H 10/27/2302/16 History tablet,extended release (Tylenol Arthritis Pain) atorvastatin 20 mg tablet 20 mg PO DAILY 10/27/23 Unkn own History gabapentin 100 mg capsule 100 mg PO TID #90 caps 06/16 Unknown Rx ferrous sulfate 325 mg (65 mg 325 mg PO QDAY PRN suppl ement 07/13/24 Unknown History iron) tablet (FeroSul) oxybutynin chloride 10 mg 10 mg PO QDAY 07/13/24 Unkno wn History tablet,extended release 24 hr lisinopril 10 mg tablet 10 mg PO BID blood pressure #180 10/04/24 Unknown Rx tabs Allergy/AdvReac Type Severity Reaction Status Date / Time amoxicillin (Amoxicillin) Allergy Severe Swelling Verified 10/09/24 20:07 cyclobenzaprine HCl (From Allergy Severe Swelling Verified 10/09/24 20:07 Flexeril) diclofenac sodium (From Allergy Severe Swelling Verified 10/09/24 20:07 Voltaren) dicyclomine Allergy Severe Swelling Verified 10/09/24 20:07 ketoprofen (From Oruvail) Allergy Severe Swelling Verified 10/09/24 20:07 sulfabenzamide Allergy Severe Anaphylaxis Verified 10/09/24 20:07 tramadol Allergy Unknown Unknown Verified 10/09/24 20:07 hydroxychloroquine (From Allergy Hives Verified 10/09/24 20:07 Plaquenil) hydroxyzine HCl (From Atarax) Allergy Swelling Verified 10/09/24 20:07 prednisone Allergy Hives Verified 10/09/24 20:07 pseudoephedrine HCl (From Allergy Other Verified 10/09/24 20:07 Sudafed) cephalexin AdvReac Severe Rash Verified 10/09/24 20:07 clindamycin AdvReac Severe Hives Verified 10/09/24 20:07 codeine AdvReac Severe Upset Verified 10/09/24 20:07 Stomach Family History Mother Heart disease Father Heart disease Other Cancer Surgical History History of back surgery History of breast biopsy History of appendectomy History of knee replacement procedure of left knee History of brain surgery Social History number of children: 3 Smoking Status: Never smoker second hand exposure: No alcohol intake: never substance use type: does not use what type of physical activity do you participate in: none wolf/jain: Alevism seatbelt use: always ROS Constitutional Constitutional: Denies anorexia, change in weight, chills, fatigue, fever(s), malaise, night sweats, weakness or other Eyes Eyes: Denies blurry vision, change in eye color, change in vision, discharge from eye(s), double vision, erythema, eye pain, loss of vision or other ENT HEENT: Reports abnormal hearing and hearing loss; Denies dysphagia, ear pain, epistaxis, headache(s), nasal congestion, nasal discharge, post nasal drip, sinus pressure, sore throat or other Cardiovascular Cardiovascular: Denies chest pain, claudication, dyspnea on exertion, edema, lightheadedness, orthopnea, palpitations, paroxysmal nocturnal dyspnea, rapid heart rate, syncope or other Respiratory/Chest Respiratory/Chest: Denies cough, dyspnea, excessive phlegm production, h emoptysis, productive cough, shortness of breath at rest, shortness of breath with exertion, wheezing or other Gastrointestinal Gastrointestinal: Denies abdominal pain, coffee ground emesis, constipation, diarrhea, dyspepsia, hematemesis, hematochezia, loose stools, melena, nausea, vomiting or other Genitourinary Genitourinary: Reports urinary incontinence; Denies burning urination, difficulty urinating, dysuria, hematuria, nocturia, urinary frequency, urinary hesitancy, urinary urgency or other Musculoskeletal Musculoskeletal: Reports back pain, joint pain and joint stiffness; Denies arthralgias, joint swelling, myalgias, neck pain or other Neurologic Neurologic: Reports abnormal gait; Denies abnormal speech, confusion, disequilibrium, dizziness, focal weakness, headache(s), numbness, paresthesias, seizure-like activity, seizures, syncope, tingling, tremor(s) or other Psychiatric Psychiatric: Denies anxiety, depression, homicidal ideation, suicidal ideation or other Endocrine Endocrinology: Denies change in body appearance, cold intolerance, excessive sweating, heat intolerance, polydipsia, polyuria or other Hematologic/Lymphatic Hematologic/Lymphatic: Denies anemia, easy bleeding, easy bruising, lymphadenopathy or other Allergic/Immunologic Allergic/Immunologic: Denies rhinitis, hives, eczemia, asthma or other Vital Signs Vital Signs Vital Signs: 10/09/24 20:07 10/09/24 21:34 10/09/24 22:06 Temperature 97.8 F Temperature Source Temporal Pulse Rate 72 78 Respiratory Rate 20 H 16 Respiratory Effort Normal Respiratory Depth Normal Respiratory Pattern Normal Blood Pressure 144/61 H 135/58 H Blood Pressure Mean 88 83 Pulse Ox 100 99 Oxygen Delivery Method Room Air Room Air 10/10/24 01:19 10/10/24 01:40 Temperature 99 F Temperature Source Oral Pulse Rate 99 Respiratory Rate 17 Respiratory Effort Respiratory Depth Respiratory Pattern Blood Pressure 130/57 H Blood Pressure Mean 81 Pulse Ox 99 Oxygen Delivery Method Weight Weight: 77.6 kg Body Mass Index (BMI) 31.3 Physical Exam Const alert, oriented x3, no apparent distress, healthy appearing and well nourished; Negative for average body habitus Constitutional Narrative: Elderly, white female, lying in bed, appears younger than stated age, family at bedside, appears comfortable, nontoxic General Appearance: cooperative HEENT normocephalic, head/scalp atraumatic and moist oral mucous membranes; Negative for hearing grossly normal bilaterally HEENT Narrative: Mallampati 2-3, no thrush Eyes conjunctivae normal Eyes Narrative: No scleral icterus Neck supple Neck Narrative: Trachea midline Resp normal respiratory effort, no retractions, no use of accessory muscles and clear to auscultation bilaterally Auscultation: Negative for rales, rhonchi or wheezes Cardio regular rate, regular rhythm, S1 normal heart sound, S2 normal heart sound, no rub, no gallops and no clicks; Negative for no murmurs Cardio Narrative: 2 out of 6 systolic murmur loudest at right upper sternal border GI normal to inspection, nondistended, normoactive bowel sounds, soft to palpation and non-tender Extremity no clubbing, cyanosis or edema Extremity Narrative: 2+ pedal radial pulses Neuro oriented x3, moves all extremities and no focal motor deficits Neuro Narrative: Generalized weakness noted proximal greater than distal Speech: speech normal Psych affect normal Psych Narrative: Eye contact is good and patient interacts appropriately Results Imaging Radiology Impression Lumbar Spine CT 10/09/24 21:00 IMPRESSION: Straightened lumbar lordosis denoting myospasm. 1st degree anterolisthesis of L4. Stable. Stable L3 vertebral body compression fracture with cementoplasty Lumbar spondylosis with multilevel facet arthropathy and diffuse posterior disc bulges inducing encroachment upon the neural exit foramina. Stable. Diffuse reduced bone density. Stable [facility] 10/09/24 21:00 IMPRESSION: No osseous fractures or dislocation identified. Mild bilateral hip osteoarthritic changes. Degenerative changes of the sacroiliac joints. Diffuse reduced bone density. Reading [facility] El[facility] 10/09/24 21:10 IMPRESSION: No definite fracture Reading [facility] Assessment & Plan Assessment/Plan (1) Contusion of elbow, left: (2) Fall: (3) Back pain: (4) Difficulty in walking: PLAN: Plan Difficulty ambulating after mechanical fall - All imaging is negative - Patient does have a history of kyphoplasty in lumbar spine and I suspect she has acute flare related to her fall - Scheduled Tylenol 1 gram 3 times daily scheduled - As needed oxycodone - Bowel regimen as ordered - Antiemetics if needed in conjunction with narcotics - PT/OT consultation - Case management/social work consultation for assistance with discharge planning as patient may need short-term placement versus home health Acute on chronic back pain - Pain management as noted above next-continue outpatient follow-up with pain management - Continue home gabapentin Essential hypertension/hyperlipidemia - Continue home atorvastatin - Continue home lisinopril Urinary incontinence - Continue home oxybutynin RA - Patient is not on any chronic medication for this - Continue pain regimen as above Obesity - BMI 31.3 - Complicates treatment, prognosis, outcomes DVT prophylaxis -subcu Lovenox 40 daily CODE STATUS - DNR CCA okay for short-term intubation Charges/Coding Visit Charges Inpatient E&M: 72784 Init Hosp L2
[2024-10-10 02:08] LABS: Absolute Neutrophil Count 5.8 X10^3/uL (2.0-7.7); Basophil# 0.05 X10^3/uL; Basophil% 0.6 % (0-1); Eosinophil# 0.18 X10^3/uL; Hematocrit 38.2 % (37-47); Hemoglobin 12.6 g/dL (12.0-15.0); Lymphocyte % 20.3 % (19-41); Mean Corpuscular Hgb 29.8 pg (27.0-32.0); Mean Corpuscular Volume 90.3 fL (81-99); Mean Platelet Vol. 10.3 fl (6.2-12.0); Monocyte# 1.01 X10^3/uL; Monocyte% 11.4 % (0-10); NRBC Flagged by Analyzer 0 % (0-5); Neutrophil # 5.79 X10^3/uL (2.7-7.7); Neutrophil % 65.4 % (47-70); Platelet Count 147 K/mm3 (150-450); RBC Distribution Width CV 12.8 % (11.6-14.6); RBC Distribution Width SD 42.3 fl (35.1-43.9); Red Blood Count 4.23 M/mm3 (4.2-5.4); White Blood Count 8.9 K/mm3 (4.4-11.0)
[2024-10-10 02:53] LABS: Anion Gap 11 (5-15); BUN 34 mg/dL (4-19); BUN/Creat Ratio 47.3 RATIO (10-20); Calcium,Total 9.2 mg/dL (7.6-11.0); Carbon Dioxide 19.9 mmol/L (21.0-32.0); Chloride 108 mmol/L (98-108); Creatinine, Serum 0.72 mg/dL (0.70-1.20); EST Glomerular Filtration Rate 82 (>60); Estimated Creatinine Clearance 47.79 ml/min (50-250); Glucose 120 mg/dL (70-99); Potassium 3.9 mmol/L (3.3-5.1); Sodium Level 139 mmol/L (133-145)
--- OUTSIDE RECORDS SUMMARY | 2024-10-10 03:25 | XMS RPT_ITS | CCD ---
Author Organization [facility] CliniSynm Care Team Providers Care Document Management Consultant Name Role Phone Muir, Ramila Unavailable Unavailable [...] Other Provider Dr. Kimani Flowers Attending Provider [phone] Jodudleyiff, Olga Jennifer Primary Care Provider OLGA [...] Provider Dr. Francine Pierce MD Attending Provider [phone] Allergies Allergy Classification Reported Allergen(s) Allergy Type Date of Onset Reaction(s) Facility (20 sources) amoxicillin; Translations: [AMOXICILLIN] Drug Allergy 04-16-20 05 Swelling [facility] Work Phone: [phone] (20 sources) cephalexin; Translations: [CEPHALEXIN] Drug Allergy 07-16-19 13 Rash [facility] Work Phone: [phone] (20 sources) codeine; Translations: [CODEINE] Drug Allergy 06-25-19 08 GI Upset [facility] Work Phone: [phone] (5 sources) cyclobenzaprine Drug Allergy 06-19-19 17 swelling [facility] Work Phone: [phone] (5 sources) diclofenac Drug Allergy 06-27-19 17 swelling [facility] Work Phone: [phone] (18 sources) diclofenac; Translations: [DICLOFENAC] Drug Allergy 04-16-20 05 Swelling [facility] Work Phone: [phone] (20 sources) dicyclomine; Translations: [dicyclomine] Drug Allergy 06-19-19 17 swelling [facility] Work Phone: [phone] (5 sources) hydrOXYzine Drug Allergy 06-27-19 17 swelling [facility] Work Phone: [phone] (5 sources) hydrOXYzine Drug Allergy 06-19-19 17 swelling [facility] Work Phone: [phone] (20 sources) ketoprofen; Translations: [KETOPROFEN] Drug Allergy 04-16-20 05 Swelling [facility] Work Phone: [phone] (20 sources) predniSONE; Translations: [PREDNISONE] Drug Allergy 09-12-19 15 Rash [facility] Work Phone: [phone] (5 sources) PSEUDOPHEDRINE drug allergy 06-19-19 17 [facility] Work Phone: [phone] (20 sources) SULFABENZAMIDE; Translations: [SULFABENZAMIDE] drug allergy 04-16-20 05 Anaphylaxis [facility] Work Phone: [phone] (5 sources) FLEXARIL drug allergy 06-27-19 17 swelling [facility] Work Phone: [phone] (20 sources) cyclobenzaprine; Translations: [CYCLOBENZAPRINE HCL] Drug Allergy 04-16-20 05 [facility] Work Phone: (20 sources) hydrOXYzine; Translations: [HYDROXYZINE HCL] Drug Allergy 04-16-20 05 Swelling [facility] Work Phone: (13 sources) Pseudoephedrine; Translations: [PSEUDOEPHEDRINE] Drug Allergy 08-25-19 10 Intolerance [facility] Work Phone: (20 sources) traMADol; Translations: [TRAMADOL] Drug Allergy 01-01-20 15 Intolerance [facility] Work Phone: (12 sources) DICICLOMINE [Other] Propensity to adverse reactions 04-16-20 05 Swelling [facility] Work Phone: (14 sources) Clindamycin Drug Allergy 10-01-19 22 [facility] (15 sources) Diclofenac; Translations: [diclofenac sodium] Drug Allergy 10-01-19 22 [facility] (15 sources) Pseudoephedrine; Translations: [pseudoephedrine HCl] Drug Allergy 10-01-19 22 Other [facility] (1 source) OTHER; Translations: [OTHER] Propensity to adverse reactions (disorder) 04-16-20 05 [facility] Repository (1 source) Clindamycin Drug Allergy 07-14-19 [facility] Repository (1 source) cyclobenzaprine Drug Allergy 07-14-19 [facility] Repository (1 source) Hydroxychloroquine Drug Allergy 07-14-19 [facility] Repository (1 source) hydrOXYzine Drug Allergy 07-14-19 [facility] Repository (1 source) traMADol Drug Allergy 07-14-19 [facility] Repository (1 source) Hydroxychloroquine Drug Allergy 07-14-19 25 [facility] Medications Current Medications Medication Drug Class(es) Dates Sig (Normalized) Sig (Original) 8 hr acetaminophen 650 mg extended release oral tablet (1 source) Start: 10-27-2023 take 1 tablet by mouth every eight hours Acetaminophen (Tylenol Arthritis Pain) 650 mg tablet extended release Active 650 mg PO Q8H October 27, 2023 12:00am [id number] 200 actuat albuterol 0.09 mg/actuat metered dose [...] One tablet by mouth daily ATORVASTATIN CALCIUM [id number] Rubin Arriaga MD Start: 07-20-2015 take 1 [...] Start: 09-16-2022 take 2 tablets by mo [facility] twice daily Calcium Citrate-Vitamin D3 Active 2 TABLET PO TWICE A DAY September 16, 2022 1:25pm Start: 11-10-2013 End: 09-16-2022 Calcium Citrate-Vitamin D3 1 EACH tablet Discontinued 2 NMA PO NEEDED as needed for Supplement Commercial Underwriter November 10, 2013 12:00am September 16, 2022 [...] 5-325 MG TABS as directed OXYCODONE-ACETAMI ERI [id number] Daphnie Conte RN aspirin 81 mg delayed release oral tablet (20 sources) Platelet Aggregation Inhibitor, Nonsteroidal Anti-inflammatory Drug Start: 06-19-2016 take 1 tablet by mouth once daily ASPIRIN EC 81 MG TBEC One tablet by mouth daily ASPIRIN [id number] Daphnie Conte RN Start: 11-10-2013 End: 10-27-2023 [...] by mouth daily CALCIUM CITRATE-VITAMIN D TABS [id number] Daphnie Conte RN CALCIUM CITRATE-VITAMIN D TABS (3 sources) Start: 06-19-19 17 take 1 tablet by mouth once daily CALCIUM CITRATE + D TABS One tablet by mouth daily CALCIUM CITRATE-VITAMIN D TABS 58309243059 Daphnie Conte RN diazePAM 2 mg oral [...] July 31, 2022 9:57am polyethylene glycol 3350 15375 mg powder for oral solution (14 sources) [...] Test Name Value Interpretation Reference Range Facility Sub Acute Care Nurse Office Visit Reporton 07-13-2024 Sub Acute Care Nurse Office Visit Report [facility] [address], [address] [place] [address] OFFICE VISIT Date of Service: 07/13/24 MR#: [id number] Acct: [id number] Name: SUSAN SENIOR Rep #: [id number] : 1935 Provider: Dr. Francine momin MD Age/Sex: 89/F Location: [facility] Status: Signed Intake Vital Signs 06/16/24 12:59 [...] Reasons: PROLAPSE OF ANTERIOR VAGINAL WALL (MILLWLeonid) Application Security Specialist Required: No Allergies amoxicillin (Amoxicillin) Allergy (Severe, [...] mg (as 1 tab PO BID Supplement Commercial Underwriter 07/13/24 History citrate)-vitamin D3 6.25 mcg (250 [...] physical activity do you participate in: none wolf/moravian: Zoroastrian seatbelt use: always HPI PROLAPSE OF ANTERIOR VAGINAL WALL (BIG OAK FLAT) Details: SUSAN SENIOR is a 89 year old who presents for vaginal bulge and pressure, been going on recently, physician at [facility] sent her to [facility] for evaluation. she [...] sweats [place] (more content not included)... Normal [facility] Soft Tissue Neck WITH Contra ston 07-06-2024 Soft Tissue Neck WITH Contrast [facility] Imaging Services [address] [place], [place] [address] Soft Tissue Neck WITH Contrast MR#: [id number] Acct: [id number] Name: SUSAN SENIOR Rep #: [id number] : 1935 F 89 From: Israel rosenthal MD PCP: Dr. Olga Hurst MD Status: REG CLI Study: Soft Tissue Neck WITH Contrast Date of Exam: 0 07/06/24 Exam# [id number] Ordering Dr: Olga Hurst MD PROCEDURE: SOFT [...] use of iterative reconstruction technique). [facility] CC: Dr. Olga Hurst MD Fuel Storage Technician: Signed Normal [facility] Neurology Visit Reporton Neurology Visit Report [facility] [address] [facility], [address] [place] [address] OFFICE VISIT Date of Service: 06/16/24 MR#: [id number] Acct: [id number] Name: SUSAN SENIOR Rep #: [id number] : 1935 Provider: Dr. Jb carey MD Age/Sex: 89/F [place] [facility] [place] Status: Signed HPI HPI Chief Complaint: Details: [...] is tolerating this well. 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 She had [...] imaging (DWI). (more content not included)... Normal [facility] Chest PA and Lateralon 06-07 Chest PA and Lateral [facility] Imaging Services [address] [place], [place] [address] [phone] PA and Lateral MR#: [id number] Acct: [id number] Name: SUSAN SENIOR Rep #: [id number] : 1935 F 89 From: Giovany brown MD PCP: Dr. Olga Hurst MD Status: [facility] Study: Chest PA and Lateral Date of Exam: 06/07/24 Exam# [id number] Ordering Dr: Olga Hurst MD PROCEDURE: CHEST [...] or pneumothorax. Large hiatal hernia. Reading Location: [facility] CC: Dr. Olga Hurst MD Fuel Storage Technician: Signed Normal [facility] Ribs Unil 2V No CXRon 2024 Ribs Unil 2V No CXR [facility] Imaging Services [address] [place] [address] Ribs Unil 2V No CXR MR#: [id number] Acct: [id number] Name: SUSAN SENIOR Rep #: [id number] : 1935 F 89 From: Giovany brown MD PCP: Dr. Olga Hurst MD Status: REG CLI Study: Ribs Unil 2V No CXR Date of Exam: 06/07/24 Exam# [id number] Ordering Dr: Olga Hurst MD PROCEDURE: RIBS [...] ACUTE RIB FRACTURE OR PNEUMOTHORAX. Reading Location: [facility] CC: Dr. Olga Hurst MD Fuel Storage Technician: Signed Normal [facility] Thoracic Spine 2 Viewson Thoracic Spine 2 Views [facility] Imaging Services [address] [place] [address] Thoracic Spine 2 Views MR#: [id number] Acct: [id number] Name: SUSAN SENIOR Rep #: [id number] : 1935 F 89 From: Afshin Ayala DO PCP: Dr. Olga Hurst MD Status: REG CLI Study: Thoracic Spine 2 Views Date of Exam: 06/07/24 Exam# [id number] Ordering Dr: Olga Hurst MD PROCEDURE: THORACIC [...] degenerative changes. 3. Mild levoscoliosis. [facility] CC: Dr. Olga Hurst MD Fuel Storage Technician: Signed Normal [facility] Breast Limited Unilateralon 05-16-2024 Breast Limited Unilateral [facility] Imaging Services [address] [place], [place] [address] Breast Limited Unilateral MR#: [id number] Acct: [id number] Name: SUSAN SENIOR Rep #: [id number] : 1935 F 89 From: Israel rosenthal MD PCP: Dr. Olga Hurst MD Status: [facility] Study: Breast Limited Unilateral Date of Exam: Exam# [id number] Ordering [place]: [place] [id number] STUDY: ULTRASOUND BREAST - LEFT REASON FOR [...] EST , CC: Dr. Olga Hurst MD Fuel Storage Technician: Signed Normal [facility] ALEKSANDRA SCREENING W TOMOon 04-14 ALEKSANDRA SCREENING W ANTONIETA * * *Final Report* * * DATE OF EXAM: Apr 14 2024 9:37AM WRW 0582 - ALEKSANDRA SCREENING W ANTONIETA / PROCEDURE REASON: Z12.39 * * * * Physician Interpretation * * * * RESULT: [place] [address] #[id number] - AELKSANDRA SCREENING W ANTONIETA HISTORY: Patient is 89 [...] Tori Dyer M.D. Electronically signed on: 04/15/2024 Fuel Storage Technician: CHARMAINE Transcribe Date/Time: Apr 14 2024 9:24A Dictated by: TORI DYER MD This examination was interpreted and the report reviewed and electronically signed by: TORI DYER MD on Apr 15 2024 9:04AM EST [id number] Normal [facility] Orthopedic Visit Reporton Orthopedic Visit Report [facility] [address] [place] [address] [address] [place] [address] OFFICE VISIT Date of Service: 04/14/24 MR#: [id number] Acct: [id number] Name: SUSAN SENIOR Rep #: [id number] : 1935 Provider: Dr. Pavel keith MD Age/Sex: 89/F [place] [facility] [place] Status: Signed Intake Vital Signs 02/17/24 07:15 [...] mg (as 1 tab PO BID Supplement Commercial Underwriter 09/16/22 04/14/24 History citrate)-vitamin D3 6.25 mcg [...] physical activity do you participate in: none wolf/moravian: Zoroastrian seatbelt use: always HPI RIGHT WRIST Details: [...] and appro (more content not included)... Normal [facility] Orthopedic Visit Reporton Orthopedic Visit Report [facility] [address] [place] [address] OFFICE VISIT Date of Service: 03/03/24 MR#: [id number] Acct: [id number] Name: SUSAN SENIOR Rep #: [id number] : 1935 Provider: Dr. Pavel keith MD Age/Sex: 89/F [place] [facility] [place] Status: Signed Intake Vital Signs 12/22/23 08:27 [...] mg (as 1 tab PO BID Supplement Commercial Underwriter 09/16/22 03/03/24 History citrate)-vitamin D3 6.25 mcg [...] physical activity do you participate in: none wolf/moravian: Zoroastrian seatbelt use: always HPI right wrist Details: [...] and No (more content not included)... Normal [facility] Orthopedic Visit Reporton Orthopedic Visit Report [facility] [facility] [address] [place] [address] OFFICE VISIT Date of Service: 02/19/24 MR#: [id number] Acct: [id number] Name: SUSAN SENIOR Rep #: [id number] : 1935 Provider: Dr. Pavel keith MD Age/Sex: 89/F [place] [facility] [place] Status: Signed Intake Vital Signs 12/22/23 08:27 [...] mg (as 1 tab PO BID Supplement Commercial Underwriter 09/16/22 02/19/24 History citrate)-vitamin D3 6.25 mcg [...] physical activity do you participate in: none wolf/moravian: Zoroastrian seatbelt use: always HPI right wrist Details: [...] Carpal renny (more content not included)... Normal [facility] Discharge Instructionon 01-26 Discharge Instruction [facility] Medical Records Department [address] [place] [address] Instructions for Home/Discharge Instructions 02/17/24 0905 MR#: [id number] Acct: [id number] Name: SUSAN SENIOR Rep #: [id number] : 1935 89 From: Pavel Cartagena MD PCP: Dr. Olga Hurst MD Status:REG [facility] Discharge Instructions Diet Discharge Diet: No restrictions [...] Care Provider: Olga Hurst Instructions Print Language: Romansh Discharge Orders/Prescriptions Prescriptions: No Action atorvastatin 20 [...] MD CC: Dr. Olga Hurst MD Signed [facility] MR/POSTOP.Erick 02-17-2024 MR/POSTOP.[facility] Medical Records Department [address] [place] [address] Anesthesia Postop Eval I 02/17/24 09 MR#: [id number] Acct: [id number] Name: SUSAN SENIOR Rep #: [id number] : 1935 89 From: Ledy Felix PCP: Dr. Olga Hurst MD Status:REG SDC Y Race: C Location: [place] [address] Anesthesia: Postop Eval I Current Vital Signs [...] Ledy Vidalignyamini Signature: Date CC: Signed Normal [facility] MR/[id number] 02-17-2024 [facility] Medical Records Department [address] [place] [address] Anesthesia Postop Eval II 02/17/24 1345 MR#: [id number] Acct: [id number] Name: SUSAN SENIOR Rep #: [id number] : 1935 89 From: Layton Metzger MD PCP: Dr. Olga Hurst MD Status:[facility] Y Race: C Location: [facility] Anesthesia Postop Eval I Sum Postop Eval Completion status Anesthesia document: Postop Eval 1 completed: Yes Anesthesia Postop Eval I Summary Anesthesia Postop Eval I Summary: Anesthesia Postop Eval I: Assessment Summary Airway patent Yes 02/17/24 09:05 PUBLICATION EDITOR.CSIR Spontaneous unlabored Yes 02/17/24 09:05 PUBLICATION EDITOR.CSIR respirations Mental status nausea No 02/17/24 09:05 PUBLICATION EDITOR.CSIR Vomiting No 02/17/24 09:05 PUBLICATION EDITOR.CSIR Anesthesia Postop Eval I: Fluid Summary Crystalloid volume administer 10 02/17/24 09:05 PUBLICATION EDITOR.CSIR (ml) Colloids volume administered ( ml) Blood Product volume administered (ml) Total IV fluid infused 10 02/17/24 09:05 PUBLICATION EDITOR.CSIR Anesthesia Postop Eval I: Summary Notes Anesthesia Complication No 02/17/24 09:05 PUBLICATION EDITOR.CSIR Anesthesia Complication Comment: Post-operative progress note Anesthesia: Postop Eval II Evaluation Mental status: Awake and Calm Pain Level: 0 nausea: No Vomiting: No 02/17/24 1346 Date Layton Metzger MD Cosigner Signature: Date CC: Signed Normal [facility] Operative Reporton 4 Operative Report [facility] Medical Records Department [address] [place] [address] Operative Report 02/17/24902 MR#: [id number] Acct: [id number] Name: SUSAN SENIOR Rep #: [id number] : 1935 89 From: Pavel Cartagena MD PCP: Dr. Olga Hurst MD Status:[facility] Location: [place] [address] Problems Associated Problem List Diagnoses (1) Carpal [...] hand and elbow no heavy lifting. cpt 52438 Surgical Findings: right carpal tunnel syndrome Seam Steamer media director: No Complications Complications: No Admit VTE Documentation VTE Present on Admission: No VTE Mechan Device Prophylaxis: SCD's VTE Pharm Prophylaxis ordered?: No Reason prophylaxis not ordered:: Treatment Not Indicated 02/17/24 0905 Cosigner Signature (if applicable): CC: Dr. Olga Hurst MD; Dr. Pavel Cartagena MD Signed Normal [facility] Sacrum-Coccyx min 2 Viewson 02-10-2024 Sacrum-Coccyx min 2 Views [facility] Imaging Services [address] [place] [address] Sacrum-Coccyx min 2 Views MR#: [id number] Acct: [id number] Name: SUSAN SENIOR Rep #: [id number] : 1935 F 89 From: Laya whitney MD PCP: Dr. Olga Hurst MD Status: REG CLI Study: Sacrum-Coccyx min 2 Views Date of Exam: Exam# [id number] Ordering Dr: [place] [id number] INDICATION: Sacrococcygeal disorders, not elsewhere classified EXAMINATION/TECHNIQUE: [...] Olga Hurst MD; Dr. Leonid Jones MD Fuel Storage Technician: Signed Normal [facility] Orthopedic Visit Reporton Orthopedic Visit Report [facility] [address] [place] [address] [address] [place] [address] OFFICE VISIT Date of Service: 01/18/24 MR#: [id number] Acct: [id number] Name: SUSAN SENIOR Rep #: [id number] : 1935 Provider: Dr. Pavel keith MD Age/Sex: 88/F [place] [facility] [place] Status: Signed Intake Vital Signs 12/22/23 08:27 [...] 315 mg 2 tab PO BID Supplement Commercial Underwriter 09/16/22 01/18/24 History calcium-vitamin D3 6.25 mcg [...] fallen in the past year?: Yes (September) [facility] Medical History COVID-19 Rheumatoid arthritis Pure [...] physical activity do you participate in: none wolf/moravian: Zoroastrian seatbelt use: always HPI RIGHT HAND Details: This documentation accurately reflects the service provided and the decisions made by me, Dr. Pavel Cartagena MD 01/18/24 4132. Part of today???s visit was documented by [...] diabetes. no symptoms from elbow. Supplemental Info [facility] Pulmonary Services/Neurology [address] [facility] [place] [address] MR#: [id number] Acct: [id number] Name: SUSAN SENIOR Rep #: [id number] : 1935 88 From: Danilo (more content not included)... Normal [facility] CBC W/Diff, Automatedon 08-2 Absolute Lymph 1.71 X10 3/uL Normal 0.83-4.51 [facility] Comment on above: Performed By: #### L 500.4050, L100.0100 ####[facility] [address] [place], [address] Absolute Neut 3.0 X10 3/uL Normal 2.0-7.7 [facility] Comment on above: Performed By: #### L 500.4050, L100.0100 ####[facility] [address] [place], [address] Basophils/100 WBC (Bld) 1.2 % High 0-1 [facility] Comment on above: Performed By: #### L 500.4050, L100.0100 ####[facility] [address] [place], [address] Eosinophils/100 WBC (Bld) 2.5 % Normal 0-5 [facility] Comment on above: Performed By: #### L 500.4050, L100.0100 ####[facility] [address] [place], [address] Erythrocyte distribution width (RBC) [Ratio] 13.7 % Normal 11.6-14.6 [facility] Comment on above: Performed By: #### L 500.4050, L100.0100 ####[facility] [address] [place], [address] Hematocrit (Bld) [Volume fraction] 40.2 % Normal 37-47 [facility] Comment on above: Performed By: #### L 500.4050, L100.0100 ####[facility] [address] [place], [address] Hemoglobin (Bld) [Mass/Vol] 13.0 g/dL Normal 12.0-15.0 [facility] Comment on above: Performed By: #### L 500.4050, L100.0100 ####[facility] [address] [place], [address] IG% 0.400 Normal 0.0-0.9 [facility] Comment on above: Result Comment: IG% - Immature Granulocytes (promyelocytes, myelocytes and metamyelocytes) > 1% indicates that a LEFT SHIFT is Present. Performed By: #### L 500.4050, L100.0100 ####[facility] [address] [place], [address] Lymphocytes/100 WBC (Bld) 30.3 % Normal 19-41 [facility] Comment on above: Performed By: #### L 500.4050, L100.0100 ####[facility] [address] [place], [address] MCH (RBC) [Entitic mass] 30.2 pg Normal 27.0-32.0 [facility] Comment on above: Performed By: #### L 500.4050, L100.0100 ####[facility] [address] [place], [address] MCHC (RBC) [Mass/Vol] 32.3 g/dL Normal 32-36 [facility] Comment on above: Performed By: #### L 500.4050, L100.0100 ####[facility] [address] [place], [address] MCV (RBC) [Entitic vol] 93.3 fL Normal 81-99 [facility] Comment on above: Performed By: #### L 500.4050, L100.0100 ####[facility] [address] [place], [address] Monocytes/100 WBC (Bld) 12.8 % High 0-10 [facility] Comment on above: Performed By: #### L 500.4050, L100.0100 ####[facility] [address] [place], [address] Neutrophils/100 WBC (Bld) 52.8 % Normal 47-70 [facility] Comment on above: Performed By: #### L 500.4050, L100.0100 ####[facility] [address] [place], [address] Nucleated RBC (Bld) [#/Vol] 0 10*3/uL Normal 0-5 [facility] Comment on above: Performed By: #### L 500.4050, L100.0100 ####[facility] [address] [place], [address] Platelet mean volume (Bld) [Entitic vol] 11.7 fL Normal 6.2-12.0 [facility] Comment on above: Performed By: #### L 500.4050, L100.0100 ####[facility] [address] [place], [address] Platelets (Bld) [#/Vol] 142 10*3/uL Low 150-450 [facility] Comment on above: Performed By: #### L 500.4050, L100.0100 ####[facility] [address] [place], [address] RBC (Bld) [#/Vol] 4.31 10*6/uL Normal 4.2-5.4 [facility] Comment on above: Performed By: #### L 500.4050, L100.0100 ####[facility] [address] [place], [address] RDW SD 45.4 fl High 35.1-43.9 [facility] Comment on above: Performed By: #### L 500.4050, L100.0100 ####[facility] [address] [place], [address] WBC (Bld) [#/Vol] 5.6 10*3/uL Normal 4.4-11.0 [facility] Comment on above: Performed By: #### L 500.4050, L100.0100 ####[facility] [address] [place], [address] Comprehensive Metabolic Prof ilon 12-22-2023 Albumin [Mass/Vol] 3.4 g/dL Normal 3.2-5.0 [facility] Comment on above: Performed By: #### L 500.4050, L100.0100 ####[facility] [address] [place], [address] Albumin/Globulin [Mass ratio] 0.9 {ratio} Normal 0.9-2.4 [facility] Comment on above: Performed By: #### L 500.4050, L100.0100 ####[facility] [address] [place], [address] ALK P 72 U/L Normal 45-117 [facility] Comment on above: Performed By: #### L 500.4050, L100.0100 ####[facility] [address] [place], [address] ALT [Catalytic activity/Vol] 21 U/L Normal 13-56 [facility] Comment on above: Performed By: #### L 500.4050, L100.0100 ####[facility] [address] [place], [address] AST [Catalytic activity/Vol] 22 U/L Normal 15-37 [facility] Comment on above: Performed By: #### L 500.4050, L100.0100 ####[facility] [address] [place], [address] Bilirubin [Mass/Vol] 0.70 mg/dL Normal 0.20-1.00 [facility] Comment on above: Result Comment: For patients on eltrombopag therapy, use of Dimension Ardara TBIL is not recommended. Performed By: #### L 500.4050, L100.0100 ####[facility] [address] [place], [address] BUN/CRE 35.5 RATIO High 10-20 [facility] Comment on above: Performed By: #### L 500.4050, L100.0100 ####[facility] [address] [place], [address] CA,Total 9.8 mg/dL Normal 8.5-10.1 [facility] Comment on above: Performed By: #### L 500.4050, L100.0100 ####[facility] [address] [place], [address] Chloride [Moles/Vol] 108 mmol/L High 98-107 [facility] Comment on above: Performed By: #### L 500.4050, L100.0100 ####[facility] [address] [place], [address] CO2 [Moles/Vol] 23.0 mmol/L Normal 21.0-32.0 [facility] Comment on above: Performed By: #### L 500.4050, L100.0100 ####[facility] [address] [place], [address] Creatinine [Mass/Vol] 0.76 mg/dL Normal 0.55-1.02 [facility] Comment on above: Result Comment: The validity of the calculated GFR GFRAA in patients over 70 years has not been determined. Clinical correlation is essential. Performed By: #### L 500.4050, L100.0100 ####[facility] [address] [place], [address] EST GFR - AA 93 mL/min Normal >60 [facility] Comment on above: Result Comment: Afri can Belarusian GFR Calc Performed By: #### L 500.4050, L100.0100 ####[facility] [address] [place], [address] GAP 9 Normal 5-15 [facility] Comment on above: Performed By: #### L 500.4050, L100.0100 ####[facility] [address] [place], [address] GFR/1.73 sq M.predicted among non-blacks MDRD (S/P/Bld) [Vol rate/Area] 76 mL/min/{1.73_m2} Normal >60 [facility] Comment on above: Result Comment: Non- GFR Calc Performed By: #### L 500.4050, L100.0100 ####[facility] [address] [place], [address] Globulin (S) [Mass/Vol] 3.6 g/dL Normal 2.2-4.2 [facility] Comment on above: Performed By: #### L 500.4050, L100.0100 ####[facility] [address] [place], [address] Glucose [Mass/Vol] 94 mg/dL Normal 74-106 [facility] Comment on above: Performed By: #### L 500.4050, L100.0100 ####[facility] [address] [place], [address] Potassium [Moles/Vol] 4.1 mmol/L Normal 3.5-5.1 [facility] Comment on above: Performed By: #### L 500.4050, L100.0100 ####[facility] [address] [place], [address] Sodium [Moles/Vol] 140 mmol/L Normal 136-145 [facility] Comment on above: Performed By: #### L 500.4050, L100.0100 ####[facility] [address] [place], [address] T PROT 7.0 g/dL Normal 6.4-8.2 [facility] Comment on above: Performed By: #### L 500.4050, L100.0100 ####[facility] [address] [place], [address] Urea nitrogen [Mass/Vol] 27 mg/dL High 7-18 [facility] Comment on above: Performed By: #### L 500.4050, L100.0100 ####[facility] [address] [place], [address] Neurology Visit Reporton Neurology Visit Report [facility] [address], [address] [place] [address] OFFICE VISIT Date of Service: 12/22/23 MR#: [id number] Acct: [id number] Name: SUSAN SENIOR Rep #: [id number] : 1935 Provider: Dr. Jb carey MD Age/Sex: 88/F [place] [facility] [place] Status: Signed HPI HPI Chief Complaint: Details: [...] is tolerating this well. 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 She had [...] no extra-a (more content not included)... Normal [facility] Sacrum-Coccyx min 2 Viewson 12-04-2023 Sacrum-Coccyx min 2 Views [facility] Imaging Services [address] [place] [address] Sacrum-Coccyx min 2 Views MR#: [id number] Acct: [id number] Name: SUSAN SENIOR Rep #: [id number] : 1935 F 88 From: Diane yañez MD PCP: Dr. Olga Hurst MD Status: REG CLI Study: Sacrum-Coccyx min 2 Views Date of Exam: Exam# [id number] Ordering [place]: [place] [id number] HISTORY: pain after fall. TECHNIQUE: X-RAY - [...] EDT , CC: Dr. Olga Hurst MD Fuel Storage Technician: Signed Normal [facility] CBC W/Diff, Automatedon 10-25 Anisocytosis Ql (Bld) RARE Normal [facility] Comment on above: Performed By: #### L 500.4050, L100.0100 ####[facility] [address] [place], [address] Comprehensive Metabolic Prof ilon 11-04-2023 Albumin [Mass/Vol] 3.1 g/dL Low 3.2-5.0 [facility] Comment on above: Performed By: #### L 500.4050, L100.0100 ####[facility] [address] [place], [address] Albumin/Globulin [Mass ratio] 0.9 {ratio} Normal 0.9-2.4 [facility] Comment on above: Performed By: #### L 500.4050, L100.0100 ####[facility] [address] [place], [address] ALK P 65 U/L Normal 45-117 [facility] Comment on above: Performed By: #### L 500.4050, L100.0100 ####[facility] [address] [place], [address] ALT [Catalytic activity/Vol] 16 U/L Normal 13-56 [facility] Comment on above: Performed By: #### L 500.4050, L100.0100 ####[facility] [address] [place], [address] AST [Catalytic activity/Vol] 15 U/L Normal 15-37 [facility] Comment on above: Performed By: #### L 500.4050, L100.0100 ####[facility] [address] [place], [address] Bilirubin [Mass/Vol] 0.60 mg/dL Normal 0.20-1.00 [facility] Comment on above: Result Comment: For patients on eltrombopag therapy, use of Dimension Ardara TBIL is not recommended. Performed By: #### L 500.4050, L100.0100 ####[facility] [address] [place], [address] BUN/CRE 40.0 RATIO High 10-20 [facility] Comment on above: Performed By: #### L 500.4050, L100.0100 ####[facility] [address] [place], [address] CA,Total 9.0 mg/dL Normal 8.5-10.1 [facility] Comment on above: Performed By: #### L 500.4050, L100.0100 ####[facility] [address] [place], [address] Chloride [Moles/Vol] 112 mmol/L High 98-107 [facility] Comment on above: Performed By: #### L 500.4050, L100.0100 ####[facility] [address] [place], [address] CO2 [Moles/Vol] 25.0 mmol/L Normal 21.0-32.0 [facility] Comment on above: Performed By: #### L 500.4050, L100.0100 ####[facility] [address] [place], [address] Creatinine [Mass/Vol] 0.75 mg/dL Normal 0.55-1.02 [facility] Comment on above: Result Comment: The validity of the calculated GFR GFRAA in patients over 70 years has not been determined. Clinical correlation is essential. Performed By: #### L 500.4050, L100.0100 ####[facility] [address] [place], [address] EST GFR - AA 94 mL/min Normal >60 [facility] Comment on above: Result Comment: Afri can Belarusian GFR Calc Performed By: #### L 500.4050, L100.0100 ####[facility] [address] [place], [address] GAP 3 Low 5-15 [facility] Comment on above: Performed By: #### L 500.4050, L100.0100 ####[facility] [address] [place], [address] GFR/1.73 sq M.predicted among non-blacks MDRD (S/P/Bld) [Vol rate/Area] 78 mL/min/{1.73_m2} Normal >60 [facility] Comment on above: Result Comment: Non- GFR Calc Performed By: #### L 500.4050, L100.0100 ####[facility] [address] [place], [address] Globulin (S) [Mass/Vol] 3.3 g/dL Normal 2.2-4.2 [facility] Comment on above: Performed By: #### L 500.4050, L100.0100 ####[facility] [address] [place], [address] Glucose [Mass/Vol] 86 mg/dL Normal 74-106 [facility] Comment on above: Performed By: #### L 500.4050, L100.0100 ####[facility] [address] [place], [address] Potassium [Moles/Vol] 4.3 mmol/L Normal 3.5-5.1 [facility] Comment on above: Performed By: #### L 500.4050, L100.0100 ####[facility] [address] [place], [address] Sodium [Moles/Vol] 140 mmol/L Normal 136-145 [facility] Comment on above: Performed By: #### L 500.4050, L100.0100 ####[facility] [address] [place], [address] T PROT 6.4 g/dL Normal 6.4-8.2 [facility] Comment on above: Performed By: #### L 500.4050, L100.0100 ####[facility] [address] [place], [address] Urea nitrogen [Mass/Vol] 30 mg/dL High 7-18 [facility] Comment on above: Performed By: #### L 500.4050, L100.0100 ####[facility] [address] [place], [address] Cardiology Visit Reporton Cardiology Visit Report [facility] [address] [place] [address] OFFICE VISIT Date of Service: 10/27/23 MR#: [id number] Acct: [id number] Name: SUSAN SENIOR Rep #: [id number] : 1935 Provider: Dr. Vasu Gonzalez MD Age/Sex: 88/F [place] [facility] [place] Status: Signed HPI HPI History of Present [...] Monitor Intake Visit Reasons: 1 Y FU Application Security Specialist Required: No Accompanied by: Self Is patient [...] 315 mg 2 tab PO BID Supplement Commercial Underwriter 09/16/22 10/27/23 History calcium-vitamin D3 6.25 mcg [...] physical activity do you participate in: none wolf/moravian: Chr (more content not included)... Normal [facility] Emergency Department Summary on 10-06-2023 Emergency Department Summary [facility] Medical Records Department [address] [place] [address] Emergency Department Summary 10/06/23 MR#: [id number] Acct: [id number] Name: SUSAN ESNIOR Rep #: [id number] : 1935 88 From: Jack Wells DO [...] since the fall roughly 1 week ago. [facility] Medical History COVID-19 Rheumatoid arthritis Pure [...] 315 mg 2 tab PO BID Supplement Commercial Underwriter 09/16/22 Unknown History calcium-vitamin D3 6.25 mcg [...] physical activity do you participate in: none wolf/moravian: Zoroastrian seatbelt use: always ROS ROS ED Constitutional Constitutional ED: Denies chills or fever(s) Eyes Eyes: Denies change in vision or diplopia ENT ENT ED: Denies sore throat Cardiovascular Cardiovascular: Reports other Details: Negative syncope ; Denies chest pain Respiratory/Chest (more content not included)... Normal [facility] Spine Lumbar without Contras ton 10-06-2023 Spine Lumbar without Contrast [facility] Imaging Services [address] [place] [address] Spine Lumbar without Contrast MR#: [id number] Acct: [id number] Name: SUSAN SENIOR Rep #: [id number] : 1935 F 88 From: Wolf dias MD PCP: Dr. Olga Hurst MD Status: REG ER Study: Spine Lumbar without Contrast Date of Exam: Exam# [id number] Ordering [place]: [place] [id number] INDICATION: pain EXAMINATION: CT LUMBAR SPINE - [...] Dr. Olga Hurst MD; Jack Wells DO Fuel Storage Technician: Signed Normal [facility] Urine Cultureon 09-27-2023 [facility] Order Date: 09/25/23 Order Info: 630-4 - CUUR Below infection level. Mixed Gram Pos Gram Neg Org [place] Count 1000-10,000 MIXC Mixed contaminants. Submit a new specimen if indicated. Normal [facility] Comment on above: Performed By: #### M 100.2200 ####[facility] [address] [place], [address] CBC W/Diff, Automatedon 08-26 Anisocytosis Ql (Bld) 1+ Normal [facility] Comment on above: Performed By: #### L 503.6150, L100.0100 ####[facility] [address] [place], [address] Ironon 09-14-2023 Iron [Mass/Vol] 66 ug/dL Normal 50-170 [facility] Comment on above: Performed By: #### L 503.6150, L100.0100 ####[facility] [address] [place], [address] NCS and/or EMG Patienton NCS and/or EMG Patient [facility] Pulmonary Services/Neurology [address] [place] [address] MR#: [id number] Acct: [id number] Name: SUSAN SENIOR Rep #: [id number] : 1935 88 From: Kimani Flowers MD [...] Multi Select Codes Neurology Neurology Interp Codes: 33665-39 Musc test done w/n test comp (interp) and 94352-79 Nrv cndj tst 5-6 studies (interp) 08/26/23 1314 Date Kimani Flowers MD CC: Dr. Olga Hurst MD; Dr. Kimani Flowers MD; Dr. Jb Joiner MD Date Dictated: 08/26/231307 Date Transcribed: 08/26/231307 Fuel Storage Technician: AA Signed Normal [facility] Absolute lymphocyte countOrd ered By: Sherinanalisa Patel on 08-12-2023 Lymphocytes Auto (Unsp spec) [#/Vol] 1.20 10*3/uL 0.83-4.51 [facility] Automated lymphocyte count a s percentage of total leukocytesOrdered By: Sherin Patel on 08-12-2023 Lymphocytes/100 WBC Auto (Unsp spec) 24.8 % 19-41 [facility] Basophil percentageOrdered B y: Sherinanalisa Patel on 08-12-2023 Basophils/100 WBC (Bld) 1.4 % 0-1 [facility] Bilirubin [Mass/Vol] 0.70 mg/dL 0.20-1.00 [facility] Comment on above: For patients on eltr ombopag therapy, use of Dimension Ardara TBIL is not recommended. Chloride [Moles/Vol] 109 mmol/L 98-107 [facility] Eosinophils/100 WBC (Bld) 2.7 % 0-5 [facility] Glucose [Mass/Vol] 100 mg/dL 74-106 [facility] Comment on above: Fasting Glucose resu lt from 100 to 125 mg/dL suggests IMPAIRED HOMEOSTASIS per A.D.A. criteria. Hemoglobin (Bld) [Mass/Vol] 9.3 g/dL 12.0-15.0 [facility] Monocytes/100 WBC (Bld) 17.8 % 0-10 [facility] Neutrophils (Bld) [#/Vol] 2.6 10*3/uL 2.0-7.7 [facility] Neutrophils/100 WBC (Bld) 53.1 % 47-70 [facility] Potassium [Moles/Vol] 4.1 mmol/L 3.5-5.1 [facility] Protein [Mass/Vol] 6.0 g/dL 6.4-8.2 [facility] Sodium [Moles/Vol] 141 mmol/L 136-145 [facility] WBC (Bld) [#/Vol] 4.8 10*3/uL 4.4-11.0 [facility] CBC W/Diff, Automatedon 04- Absolute Lymph 1.20 X10 3/uL Normal 0.83-4.51 [facility] Comment on above: Performed By: #### L 500.4050, L100.0100 #### [facility] Laboratory [address] [place], [address] Absolute Neut 2.6 X10 3/uL Normal 2.0-7.7 [facility] Comment on above: Performed By: #### L 500.4050, L100.0100 #### [facility] Laboratory [address] [place], [address] Basophils/100 WBC (Bld) 1.4 % High 0-1 [facility] Comment on above: Performed By: #### L 500.4050, L100.0100 #### [facility] Laboratory [address] [place], [address] Eosinophils/100 WBC (Bld) 2.7 % Normal 0-5 [facility] Comment on above: Performed By: #### L 500.4050, L100.0100 #### [facility] Laboratory [address] [place], [address] Erythrocyte distribution width (RBC) [Ratio] 17.7 % High 11.6-14.6 [facility] Comment on above: Performed By: #### L 500.4050, L100.0100 #### [facility] Laboratory [address] [place], [address] Hematocrit (Bld) [Volume fraction] 30.9 % Low 37-47 [facility] Comment on above: Performed By: #### L 500.4050, L100.0100 #### [facility] Laboratory [address] [place], [address] Hemoglobin (Bld) [Mass/Vol] 9.3 g/dL Low 12.0-15.0 [facility] Comment on above: Performed By: #### L 500.4050, L100.0100 #### [facility] Laboratory [address] [place], [address] IG% 0.200 Normal 0.0-0.9 [facility] Comment on above: Result Comment: IG% - Immature Granulocytes (promyelocytes, myelocytes and metamyelocytes) > 1% indicates that a LEFT SHIFT is Present. Performed By: #### L 500.4050, L100.0100 #### [facility] Laboratory [address] [place], [address] Lymphocytes/100 WBC (Bld) 24.8 % Normal 19-41 [facility] Comment on above: Performed By: #### L 500.4050, L100.0100 #### [facility] Laboratory [address] [place], [address] MCH (RBC) [Entitic mass] 24.3 pg Low 27.0-32.0 [facility] Comment on above: Performed By: #### L 500.4050, L100.0100 #### [facility] Laboratory [address] [place], [address] MCHC (RBC) [Mass/Vol] 30.1 g/dL Low 32-36 [facility] Comment on above: Performed By: #### L 500.4050, L100.0100 #### [facility] Laboratory [address] [place], [address] MCV (RBC) [Entitic vol] 80.7 fL Low 81-99 [facility] Comment on above: Performed By: #### L 500.4050, L100.0100 #### [facility] Laboratory [address] [place], [address] Monocytes/100 WBC (Bld) 17.8 % High 0-10 [facility] Comment on above: Performed By: #### L 500.4050, L100.0100 #### [facility] Laboratory [address] [place], [address] Neutrophils/100 WBC (Bld) 53.1 % Normal 47-70 [facility] Comment on above: Performed By: #### L 500.4050, L100.0100 #### [facility] Laboratory [address] [place], [address] Nucleated RBC (Bld) [#/Vol] 0 10*3/uL Normal 0-5 [facility] Comment on above: Performed By: #### L 500.4050, L100.0100 #### [facility] Laboratory [address] [place], [address] Platelet mean volume (Bld) [Entitic vol] 10.6 fL Normal 6.2-12.0 [facility] Comment on above: Performed By: #### L 500.4050, L100.0100 #### [facility] Laboratory [address] [place], [address] Platelets (Bld) [#/Vol] 236 10*3/uL Normal 150-450 [facility] Comment on above: Performed By: #### L 500.4050, L100.0100 #### [facility] Laboratory [address] [place], [address] RBC (Bld) [#/Vol] 3.83 10*6/uL Low 4.2-5.4 [facility] Comment on above: Performed By: #### L 500.4050, L100.0100 #### [facility] Laboratory [address] [place], [address] RDW SD 50.8 fl High 35.1-43.9 [facility] Comment on above: Performed By: #### L 500.4050, L100.0100 #### [facility] Laboratory [address] [place], [address] WBC (Bld) [#/Vol] 4.8 10*3/uL Normal 4.4-11.0 [facility] Comment on above: Performed By: #### L 500.4050, L100.0100 #### [facility] Laboratory [address] [place], [address] Comprehensive Metabolic Prof ilon 08-12-2023 Albumin [Mass/Vol] 2.9 g/dL Low 3.2-5.0 [facility] Comment on above: Performed By: #### L 500.4050, L100.0100 #### [facility] Laboratory [address] [place], [address] Albumin/Globulin [Mass ratio] 0.9 {ratio} Normal 0.9-2.4 [facility] Comment on above: Performed By: #### L 500.4050, L100.0100 #### [facility] Laboratory [address] [place], [address] ALK P 72 U/L Normal 45-117 [facility] Comment on above: Performed By: #### L 500.4050, L100.0100 #### [facility] Laboratory [address] [place], [address] ALT [Catalytic activity/Vol] 14 U/L Normal 13-56 [facility] Comment on above: Performed By: #### L 500.4050, L100.0100 #### [facility] Laboratory [address] [place], [address] AST [Catalytic activity/Vol] 22 U/L Normal 15-37 [facility] Comment on above: Performed By: #### L 500.4050, L100.0100 #### [facility] Laboratory [address] [place], [address] Bilirubin [Mass/Vol] 0.70 mg/dL Normal 0.20-1.00 [facility] Comment on above: Result Comment: For patients on eltrombopag therapy, use of Dimension Ardara TBIL is not recommended. Performed By: #### L 500.4050, L100.0100 #### [facility] Laboratory [address] [place], [address] BUN/CRE 24.4 RATIO High 10-20 [facility] Comment on above: Performed By: #### L 500.4050, L100.0100 #### [facility] Laboratory [address] [place], [address] CA,Total 9.2 mg/dL Normal 8.5-10.1 [facility] Comment on above: Performed By: #### L 500.4050, L100.0100 #### [facility] Laboratory [address] [place], [address] Chloride [Moles/Vol] 109 mmol/L High 98-107 [facility] Comment on above: Performed By: #### L 500.4050, L100.0100 #### [facility] Laboratory [address] [place], [address] CO2 [Moles/Vol] 26.0 mmol/L Normal 21.0-32.0 [facility] Comment on above: Performed By: #### L 500.4050, L100.0100 #### [facility] Laboratory [address] [place], [address] Creatinine [Mass/Vol] 0.82 mg/dL Normal 0.55-1.02 [facility] Comment on above: Result Comment: The validity of the calculated GFR GFRAA in patients over 70 years has not been determined. Clinical correlation is essential. Performed By: #### L 500.4050, L100.0100 #### [facility] Laboratory [address] [place], [address] EST GFR - AA 85 mL/min Normal >60 [facility] Comment on above: Result Comment: Afri can Belarusian GFR Calc Performed By: #### L 500.4050, L100.0100 #### [facility] Laboratory [address] [place], [address] GAP 6 Normal 5-15 [facility] Comment on above: Performed By: #### L 500.4050, L100.0100 #### [facility] Laboratory [address] [place], [address] GFR/1.73 sq M.predicted among non-blacks MDRD (S/P/Bld) [Vol rate/Area] 70 mL/min/{1.73_m2} Normal >60 [facility] Comment on above: Result Comment: Non- GFR Calc Performed By: #### L 500.4050, L100.0100 #### [facility] Laboratory [address] [place], [address] Globulin (S) [Mass/Vol] 3.1 g/dL Normal 2.2-4.2 [facility] Comment on above: Performed By: #### L 500.4050, L100.0100 #### [facility] Laboratory [address] [place], [address] Glucose [Mass/Vol] 100 mg/dL Normal 74-106 [facility] Comment on above: Result Comment: Fast ing Glucose result from 100 to 125 mg/dL suggests IMPAIRED HOMEOSTASIS per A.D.A. criteria. Performed By: #### L 500.4050, L100.0100 #### [facility] Laboratory [address] [place], [address] Potassium [Moles/Vol] 4.1 mmol/L Normal 3.5-5.1 [facility] Comment on above: Performed By: #### L 500.4050, L100.0100 #### [facility] Laboratory [address] [place], [address] Sodium [Moles/Vol] 141 mmol/L Normal 136-145 [facility] Comment on above: Performed By: #### L 500.4050, L100.0100 #### [facility] Laboratory [address] [place], [address] T PROT 6.0 g/dL Low 6.4-8.2 [facility] Comment on above: Performed By: #### L 500.4050, L100.0100 #### [facility] Laboratory [address] [place], [address] Urea nitrogen [Mass/Vol] 20 mg/dL High 7-18 [facility] Comment on above: Performed By: #### L 500.4050, L100.0100 #### [facility] Laboratory [address] [place], [address] Determination of erythrocyte mean corpuscular volume (MCV)Ordered By: Sherin Patel on 08-12-2023 MCV (RBC) [Entitic vol] 80.7 fL 81-99 [facility] Erythrocyte distribution wid th ratioOrdered By: Sherin Jorge on 08-12-2023 Erythrocyte distribution width (RBC) [Ratio] 17.7 % 11.6-14.6 [facility] Erythrocyte distribution wid th standard deviationOrdered By: [facility]23 Erythrocyte distribution width (RBC) [Entitic vol] 50.8 fL 35.1-43.9 [facility] Hematocrit Auto (Bld) [Volum e fraction]Ordered By: [facility] Jorge on 08-12-2023 Hematocrit (Bld) [Volume fraction] 30.9 % 37-47 [facility] Immature granulocytes/100 WB C Auto (Bld)Ordered By: [facility] Jorge on 08-12-2023 Immature granulocytes/100 WBC (Bld) 0.200 % 0.0-0.9 [facility] Comment on above: IG% - Immature Granu locytes (promyelocytes, myelocytes and metamyelocytes) > 1% indicates that a LEFT SHIFT is Present. Laboratory - Chemistry and C hemistry - challengeOrdered By: Sherin Patel on 08-12-2023 Albumin/Globulin [Mass ratio] 0.9 {ratio} 0.9-2.4 [facility] ALP [Catalytic activity/Vol] 72 U/L 45-117 [facility] ALT [Catalytic activity/Vol] 14 U/L 13-56 [facility] CO2 [Moles/Vol] 26.0 mmol/L 21.0-32.0 [facility] Globulin (S) [Mass/Vol] 3.1 g/dL 2.2-4.2 [facility] Urea nitrogen/Creatinine [Mass ratio] 24.4 mg/mg 10-20 [facility] Laboratory - Hematology and Cell countsOrdered By: Sherin Patel on 08-12-2023 MCH (RBC) [Entitic mass] 24.3 pg 27.0-32.0 [facility] MCHC (RBC) [Mass/Vol] 30.1 g/dL 32-36 [facility] Nucleated RBC/100 WBC (Bld) [Ratio] 0 % 0-5 [facility] Platelet mean volume (Bld) [Entitic vol] 10.6 fL 6.2-12.0 [facility] Platelets (Bld) [#/Vol] 236 10*3/uL 150-450 [facility] No Panel InformationOrdered By: Sherin Patel on 08-12-2023 Estimated GFR (MDRD) Amer 85 mL/min >60 [facility] Comment on above: GFR Calc Estimated GFR (MDRD) Non-Af Amer 70 mL/min >60 [facility] Comment on above: Non- GFR Calc RBC Auto (Bld) [#/Vol]Ordere d By: Sherin Patel on 08-12-2023 RBC (Bld) [#/Vol] 3.83 10*6/uL 4.2-5.4 [facility] Serum or plasma calcium jigar urement (mass/volume)Ordered By: Sherin Patel on 08-12-2023 Calcium [Mass/Vol] 9.2 mg/dL 8.5-10.1 [facility] Serum or plasma creatinine m easurement (mass/volume)Ordered By: Sherin Patel on 08-12-2023 Creatinine [Mass/Vol] 0.82 mg/dL 0.55-1.02 [facility] Comment on above: The validity of the calculated GFR & GFRAA in patients over 70 years has not been determined. Clinical correlation is essential. Serum or plasma urea nitroge n measurement (mass/volume)Ordered By: Sherin Patel on 08-12-2023 Urea nitrogen [Mass/Vol] 20 mg/dL 7- [facility] Thin prep Papanicolaou smear with manual screeningOrdered By: Sherin Patel on 08-12-2023 Thin prep Papanicolaou smear with manual screening 2.9 g/dL 3.2-5.0 [facility] Thin prep Papanicolaou smear with manual screening 22 U/L 15- [facility] Thin prep Papanicolaou smear with manual screening 6 5-15 [facility] 12 Lead EKGon 08-02-2023 12 Lead EKG [facility] Cardiovascular Services [address] [place] [address] 12 Lead EKG 08/02/23 1443 MR#: [id number] Acct: [id number] Name: SUSAN SENIOR Rep #: [id number] : 1935 88 From: Bertin Sykes MD [...] rhythm Normal ECG Confirmed by Bertin Sykes ([id number]), offline editor DANDY HOSKINS ([id number]) on 08/03/2023 11:09:16 AM Referred By: Confirmed By:Bertin Sykes 08/03/23 1109 Date Bertin Sykes MD CC: Dr. Olga Hurst MD; Dr. Chadwick Marin DO; ASHLEIGH Holden Signed Normal [facility] Absolute lymphocyte countOrd ered By: Jyoti Pearson on 08-02-2023 Lymphocytes Auto (Unsp spec) [#/Vol] 0.98 10*3/uL 0.83-4.51 [facility] Automated lymphocyte count a s percentage of total leukocytesOrdered By: Jyoti Pearson on 08-02-2023 Lymphocytes/100 WBC Auto (Unsp spec) 18.7 % 19-41 [facility] Basic Metabolic Profile (BMP )on 08-02-2023 BUN/CRE 26.4 RATIO High 10-20 [facility] Comment on above: Order Comment: 'TROP ' Serial specimen #1, #2 or #3: 1 Performed By: #### L 100.0100, L500.2500, L501.4020 ####[facility] [address] [place], [address] CA,Total 8.8 mg/dL Normal 8.5-10.1 [facility] Comment on above: Order Comment: 'TROP ' Serial specimen #1, #2 or #3: 1 Performed By: #### L 100.0100, L500.2500, L501.4020 ####[facility] [address] [place], [address] Chloride [Moles/Vol] 107 mmol/L Normal 98-107 [facility] Comment on above: Order Comment: 'TROP ' Serial specimen #1, #2 or #3: 1 Performed By: #### L 100.0100, L500.2500, L501.4020 ####[facility] [address] [place], [address] CO2 [Moles/Vol] 26.0 mmol/L Normal 21.0-32.0 [facility] Comment on above: Order Comment: 'TROP ' Serial specimen #1, #2 or #3: 1 Performed By: #### L 100.0100, L500.2500, L501.4020 ####[facility] [address] [place], [address] Creatinine [Mass/Vol] 0.87 mg/dL Normal 0.55-1.02 [facility] Comment on above: Order Comment: 'TROP ' Serial specimen #1, #2 or #3: 1 Result Comment: The validity of the calculated GFR GFRAA in patients over 70 years has not been determined. Clinical correlation is essential. Performed By: #### L 100.0100, L500.2500, L501.4020 ####[facility] [address] [place], [address] ECRCL 45.50 ml/min Normal [facility] Comment on above: Order Comment: 'TROP ' Serial specimen #1, #2 or #3: 1 Performed By: #### L 100.0100, L500.2500, L501.4020 ####[facility] [address] [place], [address] EST GFR - AA 79 mL/min Normal >60 [facility] Comment on above: Order Comment: 'TROP ' Serial specimen #1, #2 or #3: 1 Result Comment: Afri can Bel[place]ian GFR Calc Performed By: #### L 100.0100, L500.2500, L501.4020 ####[facility] [address] [place], [address] GAP 6 Normal 5-15 [facility] Comment on above: Order Comment: 'TROP ' Serial specimen #1, #2 or #3: 1 Performed By: #### L 100.0100, L500.2500, L501.4020 ####[facility] [address] [place], [address] GFR/1.73 sq M.predicted among non-blacks MDRD (S/P/Bld) [Vol rate/Area] 66 mL/min/{1.73_m2} Normal >60 [facility] Comment on above: Order Comment: 'TROP ' Serial specimen #1, #2 or #3: 1 Result Comment: Non- GFR Calc Performed By: #### L 100.0100, L500.2500, L501.4020 ####[facility] [address] [place], [address] Glucose [Mass/Vol] 103 mg/dL Normal 74-106 [facility] Comment on above: Order Comment: 'TROP ' Serial specimen #1, #2 or #3: 1 Result Comment: Fast ing Glucose result from 100 to 125 mg/dL suggests IMPAIRED HOMEOSTASIS per A.D.A. criteria. Performed By: #### L 100.0100, L500.2500, L501.4020 ####[facility] [address] [place], [address] Potassium [Moles/Vol] 3.9 mmol/L Normal 3.5-5.1 [facility] Comment on above: Order Comment: 'TROP ' Serial specimen #1, #2 or #3: 1 Performed By: #### L 100.0100, L500.2500, L501.4020 ####[facility] [address] [place], [address] Sodium [Moles/Vol] 139 mmol/L Normal 136-145 [facility] Comment on above: Order Comment: 'TROP ' Serial specimen #1, #2 or #3: 1 Performed By: #### L 100.0100, L500.2500, L501.4020 ####[facility] [address] [place], [address] Urea nitrogen [Mass/Vol] 23 mg/dL High 7-18 [facility] Comment on above: Order Comment: 'TROP ' Serial specimen #1, #2 or #3: 1 Performed By: #### L 100.0100, L500.2500, L501.4020 ####[facility] [address] [place], [address] Basophil percentageOrdered B y: Jyoti Pearson on 08-02-2023 Basophils/100 WBC (Bld) 0.6 % 0-1 [facility] Chloride [Moles/Vol] 107 mmol/L 98-107 [facility] Eosinophils/100 WBC (Bld) 4.0 % 0-5 [facility] Glucose [Mass/Vol] 103 mg/dL 74-106 [facility] Comment on above: Fasting Glucose resu lt from 100 to 125 mg/dL suggests IMPAIRED HOMEOSTASIS per A.D.A. criteria. Hemoglobin (Bld) [Mass/Vol] 10.0 g/dL 12.0-15.0 [facility] Monocytes/100 WBC (Bld) 16.8 % 0-10 [facility] Neutrophils (Bld) [#/Vol] 3.1 10*3/uL 2.0-7.7 [facility] Neutrophils/100 WBC (Bld) 59.5 % 47-70 [facility] Potassium [Moles/Vol] 3.9 mmol/L 3.5-5.1 [facility] Sodium [Moles/Vol] 139 mmol/L 136-145 [facility] WBC (Bld) [#/Vol] 5.2 10*3/uL 4.4-11.0 [facility] CBC W/Diff, Automatedon 04-0 -2023 Absolute Lymph 0.98 X10 3/uL Normal 0.83-4.51 [facility] Comment on above: Performed By: #### L 100.0100, L500.2500, L501.4020 #### [facility] Laboratory [address] [facility] [place], [address] Absolute Neut 3.1 X10 3/uL Normal 2.0-7.7 [facility] Comment on above: Performed By: #### L 100.0100, L500.2500, L501.4020 #### [facility] Laboratory [address] [place], [address] Basophils/100 WBC (Bld) 0.6 % Normal 0-1 [facility] Comment on above: Performed By: #### L 100.0100, L500.2500, L501.4020 #### [facility] Laboratory [address] [place], [address] Eosinophils/100 WBC (Bld) 4.0 % Normal 0-5 [facility] Comment on above: Performed By: #### L 100.0100, L500.2500, L501.4020 #### [facility] Laboratory [address] [place], [address] Erythrocyte distribution width (RBC) [Ratio] 17.3 % High 11.6-14.6 [facility] Comment on above: Performed By: #### L 100.0100, L500.2500, L501.4020 #### [facility] Laboratory [address] [place], [address] Hematocrit (Bld) [Volume fraction] 33.1 % Low 37-47 [facility] Comment on above: Performed By: #### L 100.0100, L500.2500, L501.4020 #### [facility] Laboratory [address] [place], [address] Hemoglobin (Bld) [Mass/Vol] 10.0 g/dL Low 12.0-15.0 [facility] Comment on above: Performed By: #### L 100.0100, L500.2500, L501.4020 #### [facility] Laboratory [address] [place], [address] IG% 0.400 Normal 0.0-0.9 [facility] Comment on above: Result Comment: IG% - Immature Granulocytes (promyelocytes, myelocytes and metamyelocytes) > 1% indicates that a LEFT SHIFT is Present. Performed By: #### L 100.0100, L500.2500, L501.4020 #### [facility] Laboratory [address] [place], [address] Lymphocytes/100 WBC (Bld) 18.7 % Low 19-41 [facility] Comment on above: Performed By: #### L 100.0100, L500.2500, L501.4020 #### [facility] Laboratory [address] [place], [address] MCH (RBC) [Entitic mass] 24.8 pg Low 27.0-32.0 [facility] Comment on above: Performed By: #### L 100.0100, L500.2500, L501.4020 #### [facility] Laboratory [address] [place], [address] MCHC (RBC) [Mass/Vol] 30.2 g/dL Low 32-36 [facility] Comment on above: Performed By: #### L 100.0100, L500.2500, L501.4020 #### [facility] Laboratory [address] [place], [address] MCV (RBC) [Entitic vol] 82.1 fL Normal 81-99 [facility] Comment on above: Performed By: #### L 100.0100, L500.2500, L501.4020 #### [facility] Laboratory [address] [place], [address] Monocytes/100 WBC (Bld) 16.8 % High 0-10 [facility] Comment on above: Performed By: #### L 100.0100, L500.2500, L501.4020 #### [facility] Laboratory [address] [place], [address] Neutrophils/100 WBC (Bld) 59.5 % Normal 47-70 [facility] Comment on above: Performed By: #### L 100.0100, L500.2500, L501.4020 #### [facility] Laboratory [address] [place], [address] Nucleated RBC (Bld) [#/Vol] 0 10*3/uL Normal 0-5 [facility] Comment on above: Performed By: #### L 100.0100, L500.2500, L501.4020 #### [facility] Laboratory [address] [place], [address] Platelet mean volume (Bld) [Entitic vol] 9.9 fL Normal 6.2-12.0 [facility] Comment on above: Performed By: #### L 100.0100, L500.2500, L501.4020 #### [facility] Laboratory [address] [place], [address] Platelets (Bld) [#/Vol] 191 10*3/uL Normal 150-450 [facility] Comment on above: Performed By: #### L 100.0100, L500.2500, L501.4020 #### [facility] Laboratory [address] [place], [address] RBC (Bld) [#/Vol] 4.03 10*6/uL Low 4.2-5.4 [facility] Comment on above: Performed By: #### L 100.0100, L500.2500, L501.4020 #### [facility] Laboratory [address] [place], [address] RDW SD 51.1 fl High 35.1-43.9 [facility] Comment on above: Performed By: #### L 100.0100, L500.2500, L501.4020 #### [facility] Laboratory [address] [place], [address] WBC (Bld) [#/Vol] 5.2 10*3/uL Normal 4.4-11.0 [facility] Comment on above: Performed By: #### L 100.0100, L500.2500, L501.4020 #### [facility] Laboratory [address] [place], [address] Chest PA and Lateralon 08-01 Chest PA and Lateral [facility] Imaging Services [address] [place] [address] Chest PA and Lateral MR#: [id number] Acct: [id number] Name: SUSAN SENIOR Rep #: [id number] : 1935 F 88 From: Denis Bowman PCP: Dr. Olga Hurst MD Status: [facility] ER Study: Chest PA and Lateral Date of Exam: 08/02/23 Exam# [id number] Ordering Dr: Jyoti Pearson [id number] STUDY: XR Chest 2 Views 08/02/2023 2:56 [...] CC: Dr. Olga Hurst MD; ASHLEIGH Holden [employer] Technician: Signed Normal [facility] Determination of erythrocyte mean corpuscular volume (MCV)Ordered By: Jyoti Pearson on 08-02-2023 MCV (RBC) [Entitic vol] 82.1 fL 81-99 [facility] Emergency Department Summary on 08-02-2023 Emergency Department Summary [facility] Medical Records Department [address] [place] [address] Emergency Department Summary 08/02/23 MR#: [id number] Acct: [id number] Name: SUSAN SENIOR Rep #: [id number] : 1935 88 From: Chadwick Marin DO PCP: Dr. Olga Hurst MD Status:REG ER Location: ED HPI History of Present Illness Chief Complaint: General Illness Narrative Narrative: 88-year-old female with past medical history of hypertension, hyperlipidemia has had a productive cough for 3 days. This morning her chest felt tight so she went to the [facility] clinic. She states the provider listened to [...] have a history of asthma or COPD. 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 A (more content not included)... Normal [facility] Erythrocyte distribution wid th ratioOrdered By: Jyoti Pearson on 08-02-2023 Erythrocyte distribution width (RBC) [Ratio] 17.3 % 11.6-14.6 [facility] Erythrocyte distribution wid th standard deviationOrdered By: Jyoti Pearson on 08-02-2023 Erythrocyte distribution width (RBC) [Entitic vol] 51.1 fL 35.1-43.9 [facility] Hematocrit Auto (Bld) [Volum e fraction]Ordered By: Jyoti Pearson on 08-02-2023 Hematocrit (Bld) [Volume fraction] 33.1 % 37-47 [facility] Immature granulocytes/100 WB C Auto (Bld)Ordered By: Jyoti Pearson on 08-02-2023 Immature granulocytes/100 WBC (Bld) 0.400 % 0.0-0.9 [facility] Comment on above: IG% - Immature Granu locytes (promyelocytes, myelocytes and metamyelocytes) > 1% indicates that a LEFT SHIFT is Present. L501.4020on 08-02-2023 TROPONIN-I HS 7 pg/mL Normal 3.0-54.0 [facility] Comment on above: Order Comment: 'TROP ' Serial specimen #1, #2 or #3: 1 Result Comment: Plea Note: New Test Units and Gender Specific Reference Ranges. For more information see Policy Stat Procedure Ard[place] High Sensitivity Troponin (TNIH) and attachments. Performed By: #### L 100.0100, L500.2500, L501.4020 ####[facility] [id number] [place], [place], [id number] Laboratory - Chemistry and C hemistry - challengeOrdered By: Jyoti Pearson on 08-02-2023 CO2 [Moles/Vol] 26.0 mmol/L 21.0-32.0 [facility] Urea nitrogen/Creatinine [Mass ratio] 26.4 mg/mg 10-20 [facility] Laboratory - Hematology and Cell countsOrdered By: Jyoti Pearson on 08-02-2023 MCH (RBC) [Entitic mass] 24.8 pg 27.0-32.0 [facility] MCHC (RBC) [Mass/Vol] 30.2 g/dL 32-36 [facility] Nucleated RBC/100 WBC (Bld) [Ratio] 0 % 0-5 [facility] Platelet mean volume (Bld) [Entitic vol] 9.9 fL 6.2-12.0 [facility] Platelets (Bld) [#/Vol] 191 10*3/uL 150-450 [facility] Laboratory - Microbiology an d Antimicrobial susceptibilityOrdered By: Jyoti Pearson on 08-02-2023 SARS-CoV-2 (COVID-19) RNA RAVINDER+probe Ql (Unsp spec) [facility] M100.678on 08-02-2023 M100.678 SARS-CoV-2 (COVID 19 ) Negative INFLUENZA A Negative INFLUENZA B Negative RSV PCR Negative Normal [facility] Comment on above: Performed By: #### M 100.678 #### [facility] Laboratory [address] [place], [place], [id number] No Panel InformationOrdered By: Jyoti Pearson on 08-02-2023 Estimated Creatinine Clearance Calc 45.50 ml/min [facility] Estimated GFR (MDRD) Amer 79 mL/min >60 [facility] Comment on above: GFR Calc Estimated GFR (MDRD) Non-Af Amer 66 mL/min >60 [facility] Comment on above: Non- GFR Calc Troponin I High Sensitivity 7 pg/mL 3.0-54.0 [facility] Comment on above: Please Note: New Brayan t Units and Gender Specific Reference Ranges. For more information see Policy Stat Procedure Ardara High Sensitivity Troponin (TNIH) and attachments. No Panel Informationon 08-01 POC SARS CoV-2 Antigen Negative [facility] Office Visit Reporton 2023 Office Visit Report [facility] [address] [place] [address] OFFICE VISIT Date of Service: 08/02/23 MR#: [id number] Acct: [id number] Patient: SUSAN SENIOR Rep #: [id number] : 1935 Provider: ASHLEIGH Cooper Age/Sex: 88/F [place] [facility] [place] Status: Signed Intake Vital Signs 02/04/23 08:28 08/02/23 10:54 Height 5 ft 2 in BP 150/68 H Blood Pressure Location Rt brachial Position Sitting Respiration 18 Pulse 77 Pulse Source NIBP Temp 98.1 F Temp Source Temporal Pulse Oximetry (%) 96 Oxygen Delivery Method room air Intake Visit Reasons: Cough Chief Complaint: cough, chest tightness Application Security Specialist Required: No Is patient in pain?: No [...] chewable tablet 81 mg PO DAILY@0800 heart [facility] 11/10/13 [History Confirmed 08/02/23] atorvastatin 20 mg tablet 20 mg PO QHS cholesterol 30 days #30 tabs 03/15/18 [History Confirmed 08/02/23] methotrexate sodium 2.5 mg tablet 25 mg PO QWEEK 07/12/21 [History Confirmed 08/02/23] calcium citrate 315 mg calcium-vitamin D3 6.25 mcg (250 unit) tablet 2 tab PO BID Supplement Commercial Underwriter 09/16/22 [History Confirmed 08/02/23] folic acid 1 [...] physical activity do you participate in: none wolf/moravian: Zoroastrian seatbelt use: always HPI HPI Chief Complaint: [...] She does feel fatigued. She has used [id number] medications with no relief. She does have [...] drainage Eyes (more content not included)... Normal [facility] RBC Auto (Bld) [#/Vol]Ordere d By: Jyoti Pearson on 08-02-2023 RBC (Bld) [#/Vol] 4.03 10*6/uL 4.2-5.4 [facility] Serum or plasma calcium jigar urement (mass/volume)Ordered By: Jyoti Pearson on 08-02-2023 Calcium [Mass/Vol] 8.8 mg/dL 8.5-10.1 [facility] Serum or plasma creatinine m easurement (mass/volume)Ordered By: Jyoti Pearson on 08-02-2023 Creatinine [Mass/Vol] 0.87 mg/dL 0.55-1.02 [facility] Comment on above: The validity of the calculated GFR & GFRAA in patients over 70 years has not been determined. Clinical correlation is essential. Serum or plasma urea nitroge n measurement (mass/volume)Ordered By: Jyoti Pearson on 08-02-2023 Urea nitrogen [Mass/Vol] 23 mg/dL 7-18 [facility] Thin prep Papanicolaou smear with manual screeningOrdered By: Jyoti Pearson on 08-02-2023 Thin prep Papanicolaou smear with manual screening 6 5-15 [facility] Neurology Visit Reporton Neurology Visit Report [facility] [address], [address] [place] [address] OFFICE VISIT Date of Service: 07/29/23 MR#: [id number] Acct: [id number] Name: SUSAN SENIOR Rep #: [id number] : 1935 Provider: Dr. Jb carey MD Age/Sex: 88/F Location: [facility] Status: Signed with Addenda ADDENDUM by Dr. 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 Normal [facility] Absolute lymphocyte countOrd ered By: Sherin Patel on 05-13-2023 Lymphocytes Auto (Unsp spec) [#/Vol] 1.02 10*3/uL 0.83-4.51 [facility] Automated lymphocyte count a s percentage of total leukocytesOrdered By: Sherin Patel on 05-13-2023 Lymphocytes/100 WBC Auto (Unsp spec) 22.5 % 19-41 [facility] Basophil percentageOrdered B y: Sherin Patel on 05-13-2023 Basophils/100 WBC (Bld) 1.5 % 0-1 [facility] Bilirubin [Mass/Vol] 0.60 mg/dL 0.20-1.00 [facility] Comment on above: For patients on eltr ombopag therapy, use of Dimension Ardara TBIL is not recommended. Chloride [Moles/Vol] 109 mmol/L 98-107 [facility] Eosinophils/100 WBC (Bld) 5.5 % 0-5 [facility] Glucose [Mass/Vol] 104 mg/dL 74-106 [facility] Comment on above: Fasting Glucose resu lt from 100 to 125 mg/dL suggests IMPAIRED HOMEOSTASIS per A.D.A. criteria. Hemoglobin (Bld) [Mass/Vol] 10.4 g/dL 12.0-15.0 [facility] Monocytes/100 WBC (Bld) 20.1 % 0-10 [facility] Neutrophils (Bld) [#/Vol] 2.3 10*3/uL 2.0-7.7 [facility] Neutrophils/100 WBC (Bld) 50.2 % 47-70 [facility] Potassium [Moles/Vol] 4.1 mmol/L 3.5-5.1 [facility] Protein [Mass/Vol] 6.0 g/dL 6.4-8.2 [facility] Sodium [Moles/Vol] 139 mmol/L 136-145 [facility] WBC (Bld) [#/Vol] 4.5 10*3/uL 4.4-11.0 [facility] Determination of erythrocyte mean corpuscular volume (MCV)Ordered By: Sherin Patel on 05-13-2023 MCV (RBC) [Entitic vol] 84.0 fL 81-99 [facility] Erythrocyte distribution wid th ratioOrdered By: Sherin Patel on 05-13-2023 Erythrocyte distribution width (RBC) [Ratio] 17.2 % 11.6-14.6 [facility] Erythrocyte distribution wid th standard deviationOrdered By: [facility] Jorge on 05-13-2023 Erythrocyte distribution width (RBC) [Entitic vol] 52.1 fL 35.1-43.9 [facility] Hematocrit Auto (Bld) [Volum e fraction]Ordered By: [facility] Jorge on 05-13-2023 Hematocrit (Bld) [Volume fraction] 34.6 % 37-47 [facility] Immature granulocytes/100 WB C Auto (Bld)Ordered By: [facility] Jorge on 05-13-2023 Immature granulocytes/100 WBC (Bld) 0.200 % 0.0-0.9 [facility] Comment on above: IG% - Immature Granu locytes (promyelocytes, myelocytes and metamyelocytes) > 1% indicates that a LEFT SHIFT is Present. Laboratory - Chemistry and C hemistry - challengeOrdered By: Sherin Patel on 05-13-2023 Albumin/Globulin [Mass ratio] 0.9 {ratio} 0.9-2.4 [facility] ALP [Catalytic activity/Vol] 70 U/L 45-117 [facility] ALT [Catalytic activity/Vol] 15 U/L 13-56 [facility] CO2 [Moles/Vol] 25.0 mmol/L 21.0-32.0 [facility] Globulin (S) [Mass/Vol] 3.1 g/dL 2.2-4.2 [facility] Urea nitrogen/Creatinine [Mass ratio] 24.2 mg/mg 10-20 [facility] Laboratory - Hematology and Cell countsOrdered By: Sherin Patel on 05-13-2023 MCH (RBC) [Entitic mass] 25.2 pg 27.0-32.0 [facility] MCHC (RBC) [Mass/Vol] 30.1 g/dL 32-36 [facility] Nucleated RBC/100 WBC (Bld) [Ratio] 0 % 0-5 [facility] Platelets (Bld) [#/Vol] 190 10*3/uL 150-450 [facility] No Panel InformationOrdered By: Sherin Patel on 05-13-2023 Estimated GFR (MDRD) Amer 84 mL/min >60 [facility] Comment on above: GFR Calc Estimated GFR (MDRD) Non-Af Amer 70 mL/min >60 [facility] Comment on above: Non- GFR Calc Platelet mean volume Henri-Ec ker (Bld) [Entitic vol]Ordered By: Sherin Patel on 05-13-2023 Platelet mean volume (Bld) [Entitic vol] 10.0 fL 6.2-12.0 [facility] RBC Auto (Bld) [#/Vol]Ordere d By: Sherin Patel on 05-13-2023 RBC (Bld) [#/Vol] 4.12 10*6/uL 4.2-5.4 [facility] Serum or plasma calcium jigar urement (mass/volume)Ordered By: Sherin Patel on 05-13-2023 Calcium [Mass/Vol] 9.1 mg/dL 8.5-10.1 [facility] Serum or plasma creatinine m easurement (mass/volume)Ordered By: Sherin Patel on 05-13-2023 Creatinine [Mass/Vol] 0.83 mg/dL 0.55-1.02 [facility] Comment on above: The validity of the calculated GFR & GFRAA in patients over 70 years has not been determined. Clinical correlation is essential. Serum or plasma urea nitroge n measurement (mass/volume)Ordered By: Sherin Patel on 05-13-2023 Urea nitrogen [Mass/Vol] 20 mg/dL 7-18 [facility] Thin prep Papanicolaou smear with manual screeningOrdered By: Sherin Patel on 05-13-2023 Thin prep Papanicolaou smear with manual screening 2.9 g/dL 3.2-5.0 [facility] Thin prep Papanicolaou smear with manual screening 19 U/L 15-37 [facility] Thin prep Papanicolaou smear with manual screening 5 5-15 [facility] Absolute lymphocyte countOrd ered By: Sherin Patel on 01-26-2023 Lymphocytes Auto (Unsp spec) [#/Vol] 0.98 10*3/uL 0.83-4.51 [facility] Basophil percentageOrdered B y: Sherin Patel on 01-26-2023 Basophils/100 WBC (Bld) 1.4 % 0-1 [facility] Bilirubin [Mass/Vol] 0.60 mg/dL 0.20-1.00 [facility] Comment on above: For patients on eltr ombopag therapy, use of Dimension [place] TBIL is not recommended. Chloride [Moles/Vol] 109 mmol/L 98-107 [facility] Eosinophils/100 WBC (Bld) 4.1 % 0-5 [facility] Glucose [Mass/Vol] 107 mg/dL 74-106 [facility] Comment on above: Fasting Glucose resu lt from 100 to 125 mg/dL suggests IMPAIRED HOMEOSTASIS per A.D.A. criteria. Neutrophils (Bld) [#/Vol] 1.9 10*3/uL 2.0-7.7 [facility] Neutrophils/100 WBC (Bld) 51.3 % 47-70 [facility] Potassium [Moles/Vol] 4.1 mmol/L 3.5-5.1 [facility] Protein [Mass/Vol] 6.5 g/dL 6.4-8.2 [facility] Sodium [Moles/Vol] 141 mmol/L 136-145 [facility] WBC (Bld) [#/Vol] 3.7 10*3/uL 4.4-11.0 [facility] Blood erythrocytes count (nu mber/volume)Ordered By: Sherin Patel on 01-26-2023 RBC (Bld) [#/Vol] 3.91 10*6/uL 4.2-5.4 [facility] Blood hemoglobin measurement (mass/volume)Ordered By: Sherin Patel on 01-26-2023 Hemoglobin (Bld) [Mass/Vol] 10.7 g/dL 12.0-15.0 [facility] Blood lymphocytes/100 leukoc ytesOrdered By: Sherin Patel on 01-26-2023 Lymphocytes/100 WBC (Bld) 26.8 % 19-41 [facility] Blood monocytes/100 leukocyt esOrdered By: Sherin Patel on 01-26-2023 Monocytes/100 WBC (Bld) 16.1 % 0-10 [facility] Blood platelet mean volumeOr dered By: Sherin Patel on 01-26-2023 Platelet mean volume (Bld) [Entitic vol] 10.5 fL 6.2-12.0 [facility] Determination of erythrocyte mean corpuscular volume (MCV)Ordered By: Sherin Patel on 01-26-2023 MCV (RBC) [Entitic vol] 88.2 fL 81-99 [facility] Hematocrit Auto (Bld) [Volum e fraction]Ordered By: Sherin Patel on 01-26-2023 Hematocrit (Bld) [Volume fraction] 34.5 % 37-47 [facility] Laboratory - Chemistry and C hemistry - challengeOrdered By: Sherin Patel on 01-26-2023 ALP [Catalytic activity/Vol] 71 U/L 45-117 [facility] ALT [Catalytic activity/Vol] 19 U/L 13-56 [facility] CO2 [Moles/Vol] 24.0 mmol/L 21.0-32.0 [facility] Globulin (S) [Mass/Vol] 3.4 g/dL 2.2-4.2 [facility] Urea nitrogen/Creatinine [Mass ratio] 39.8 mg/mg 10-20 [facility] Laboratory - Hematology and Cell countsOrdered By: Sherin Patel on 01-26-2023 Erythrocyte distribution width (RBC) [Entitic vol] 52.3 fL 35.1-43.9 [facility] Erythrocyte distribution width (RBC) [Ratio] 16.4 % 11.6-14.6 [facility] Immature granulocytes/100 WBC (Bld) 0.300 % 0.0-0.9 [facility] Comment on above: IG% - Immature Granu locytes (promyelocytes, myelocytes and metamyelocytes) > 1% indicates that a LEFT SHIFT is Present. MCH (RBC) [Entitic mass] 27.4 pg 27.0-32.0 [facility] Nucleated RBC/100 WBC (Bld) [Ratio] 0 % 0-5 [facility] MCHC Auto (RBC) [Mass/Vol]Or dered By: Sherin Patel on 01-26-2023 MCHC (RBC) [Mass/Vol] 31.0 g/dL 32-36 [facility] No Panel InformationOrdered By: Sherin Patel on 01-26-2023 Estimated GFR (MDRD) Amer 102 mL/min >60 [facility] Comment on above: GFR Calc Estimated GFR (MDRD) Non-Af Amer 84 mL/min >60 [facility] Comment on above: Non- GFR Calc Platelets bldOrdered By: Adamaris Patel on 01-26-2023 Platelets (Bld) [#/Vol] 209 10*3/uL 150-450 [facility] Serum or plasma albumin jigar urement (mass/volume)Ordered By: Sherin Patel on 01-26-2023 Albumin [Mass/Vol] 3.1 g/dL 3.2-5.0 [facility] Serum or plasma albumin/glob ulin mass ratioOrdered By: Sherin Patel on 01-26-2023 Albumin/Globulin [Mass ratio] 0.9 {ratio} 0.9-2.4 [facility] Serum or plasma calcium jigar urement (mass/volume)Ordered By: Sherin Patel on 01-26-2023 Calcium [Mass/Vol] 8.9 mg/dL 8.5-10.1 [facility] Serum or plasma creatinine m easurement (mass/volume)Ordered By: Sherin Patel on 01-26-2023 Creatinine [Mass/Vol] 0.70 mg/dL 0.55-1.02 [facility] Comment on above: The validity of the calculated GFR & GFRAA in patients over 70 years has not been determined. Clinical correlation is essential. Serum or plasma urea nitroge n measurement (mass/volume)Ordered By: Sherin Patel on 01-26-2023 Urea nitrogen [Mass/Vol] 28 mg/dL 7-18 [facility] Thin prep Papanicolaou smear with manual screeningOrdered By: Sherin Patel on 01-26-2023 Thin prep Papanicolaou smear with manual screening 21 U/L 15-37 [facility] Thin prep Papanicolaou smear with manual screening 8 5-15 [facility] Culture, urineOrdered By: Alejandra Hurst on 01-23-2023 Bacteria identified Cx Nom (U) Negative [facility] Absolute lymphocyte countOrd ered By: Dr. Patel on 08-28-2022 Lymphocytes Auto (Unsp spec) [#/Vol] 1.03 10*3/uL 0.83-4.51 [facility] Basophil percentageOrdered B y: Dr. Patel on 08-28-2022 Basophils/100 WBC (Bld) 0.1 % 0-1 [facility] Bilirubin [Mass/Vol] 0.60 mg/dL 0.20-1.00 [facility] Comment on above: For patients on eltr ombopag therapy, use of Dimension Ardara TBIL is not recommended. Chloride [Moles/Vol] 107 mmol/L 98-107 [facility] Eosinophils/100 WBC (Bld) 0.0 % 0-5 [facility] Glucose [Mass/Vol] 103 mg/dL 74-106 [facility] Comment on above: Fasting Glucose resu lt from 100 to 125 mg/dL suggests IMPAIRED HOMEOSTASIS per A.D.A. criteria. Neutrophils (Bld) [#/Vol] 7.7 10*3/uL 2.0-7.7 [facility] Neutrophils/100 WBC (Bld) 79.2 % 47-70 [facility] Potassium [Moles/Vol] 4.2 mmol/L 3.5-5.1 [facility] Protein [Mass/Vol] 6.0 g/dL 6.4-8.2 [facility] Sodium [Moles/Vol] 141 mmol/L 136-145 [facility] WBC (Bld) [#/Vol] 9.7 10*3/uL 4.4-11.0 [facility] Blood erythrocytes count (nu mber/volume)Ordered By: Dr. Patel on 08-28-2022 RBC (Bld) [#/Vol] 4.01 10*6/uL 4.2-5.4 [facility] Blood hemoglobin measurement (mass/volume)Ordered By: Dr. Patel on 08-28-2022 Hemoglobin (Bld) [Mass/Vol] 11.1 g/dL 12.0-15.0 [facility] Blood lymphocytes/100 leukoc ytesOrdered By: Dr. Patel on 08-28-2022 Lymphocytes/100 WBC (Bld) 10.6 % 19-41 [facility] Blood monocytes/100 leukocyt esOrdered By: Dr. Patel on 08-28-2022 Monocytes/100 WBC (Bld) 9.7 % 0-10 [facility] Blood platelet mean volumeOr dered By: Dr. Patel on 08-28-2022 Platelet mean volume (Bld) [Entitic vol] 10.3 fL 6.2-12.0 [facility] Determination of erythrocyte mean corpuscular volume (MCV)Ordered By: Dr. Patel on 08-28-2022 MCV (RBC) [Entitic vol] 85.5 fL 81-99 [facility] Hematocrit Auto (Bld) [Volum e fraction]Ordered By: Dr. Patel on 08-28-2022 Hematocrit (Bld) [Volume fraction] 34.3 % 37-47 [facility] Laboratory - Chemistry and C hemistry - challengeOrdered By: Dr. Patel on 08-28-2022 ALP [Catalytic activity/Vol] 68 U/L 45-117 [facility] ALT [Catalytic activity/Vol] 24 U/L 13-56 [facility] CO2 [Moles/Vol] 24.0 mmol/L 21.0-32.0 [facility] Globulin (S) [Mass/Vol] 2.9 g/dL 2.2-4.2 [facility] Urea nitrogen/Creatinine [Mass ratio] 55.5 mg/mg 10-20 [facility] Laboratory - Hematology and Cell countsOrdered By: Dr. Patel on 08-28-2022 Erythrocyte distribution width (RBC) [Entitic vol] 52.6 fL 35.1-43.9 [facility] Erythrocyte distribution width (RBC) [Ratio] 17.1 % 11.6-14.6 [facility] Immature granulocytes/100 WBC (Bld) 0.400 % 0.0-0.9 [facility] Comment on above: IG% - Immature Granu locytes (promyelocytes, myelocytes and metamyelocytes) > 1% indicates that a LEFT SHIFT is Present. MCH (RBC) [Entitic mass] 27.7 pg 27.0-32.0 [facility] [facility] Nucleated RBC/100 WBC (Bld) [Ratio] 0 % 0-5 [facility] MCHC Auto (RBC) [Mass/Vol]Or dered By: Dr. Patel on 08-28-2022 MCHC (RBC) [Mass/Vol] 32.4 g/dL 32-36 [facility] No Panel InformationOrdered By: Dr. Patel on 08-28-2022 Estimated GFR (MDRD) Amer 105 mL/min >60 [facility] Comment on above: GFR Calc Estimated GFR (MDRD) Non-Af Amer 87 mL/min >60 [facility] Comment on above: Non- GFR Calc Platelets bldOrdered By: Dr. Patel on 08-28-2022 Platelets (Bld) [#/Vol] 217 10*3/uL 150-450 [facility] Serum or plasma albumin jigar urement (mass/volume)Ordered By: Dr. Patel on 08-28-2022 Albumin [Mass/Vol] 3.1 g/dL 3.2-5.0 [facility] Serum or plasma albumin/glob ulin mass ratioOrdered By: Dr. Patel on 08-28-2022 Albumin/Globulin [Mass ratio] 1.1 {ratio} 0.9-2.4 [facility] Serum or plasma calcium jigar urement (mass/volume)Ordered By: Dr. Patel on 08-28-2022 Calcium [Mass/Vol] 9.0 mg/dL 8.5-10.1 [facility] Serum or plasma creatinine m easurement (mass/volume)Ordered By: Dr. Patel on 08-28-2022 Creatinine [Mass/Vol] 0.68 mg/dL 0.55-1.02 [facility] Comment on above: The validity of the calculated GFR & GFRAA in patients over 70 years has not been determined. Clinical correlation is essential. Serum or plasma urea nitroge n measurement (mass/volume)Ordered By: Dr. Patel on 08-28-2022 Urea nitrogen [Mass/Vol] 38 mg/dL 7-18 [facility] Thin prep Papanicolaou smear with manual screeningOrdered By: Dr. Patel on 08-28-2022 Thin prep Papanicolaou smear with manual screening 21 U/L 15-37 [facility] Thin prep Papanicolaou smear with manual screening 10 5-15 [facility] No Panel Informationon 07-31 POC SARS CoV-2 Antigen Positive [facility] Albumin Elph [Mass/Vol]Order ed By: Dr. Joiner on 06-10-2022 Albumin [Mass/Vol] 3.4 g/dL 2.9-4.4 [facility] Basophil percentageOrdered B y: Dr. Joiner on 06-10-2022 Basophil percentage Comment . [facility] Comment on above: No monoclonality det ected.Performed at: [email or web address] [id number] Director: Zeke Schultz PhD, Phone: [phone] Interpretation of serum or p lasma protein pattern by immunofixation (narrative resultOrdered By: Dr. Joiner on 06-10-2022 Protein Fractions Immunofixation Julius [Interp] See comment [facility] Comment on above: NOT OBSERVED No Panel InformationOrdered By: Dr. Joiner on 06-10-2022 Addendum Document Comment . [facility] Comment on above: Protein electrophore sis scan will follow via computer,mail, or egg producer delivery. Serum [id number] measu rement by electrophoresisOrdered By: Dr. Joiner on 06-10-2022 Alpha 1 globulin Elph [Mass/Vol] 0.2 g/dL 0.0-0.4 [facility] Alpha 1 globulin Elph [Mass/Vol] 0.9 g/dL 0.4-1.0 [facility] Serum globulin measurement ( mass/volume)Ordered By: Dr. Joiner on 06-10-2022 Globulin (S) [Mass/Vol] 2.9 g/dL 2.2-3.9 [facility] Serum or plasma IgA measurem ent (mass/volume)Ordered By: Dr. Joiner on 06-10-2022 IgA [Mass/Vol] 127 mg/dL 64-422 [facility] Serum or plasma IgG measurem ent (mass/volume)Ordered By: Dr. Joiner on 06-10-2022 IgG [Mass/Vol] 899 mg/dL [phone] [facility] Serum or plasma IgM measurem ent (mass/volume)Ordered By: Dr. Joiner on 06-10-2022 IgM [Mass/Vol] 167 mg/dL 26-217 [facility] Serum or plasma beta globuli n measurement by electrophoresis (mass/volume)Ordered By: Dr. Joiner on 06-10-2022 Beta globulin Elph [Mass/Vol] 0.9 g/dL 0.7-1.3 [facility] Serum or plasma gamma globul in measurement by electrophoresis (mass/volume)Ordered By: Dr. Joiner on 06-10-2022 Gamma globulin Elph [Mass/Vol] 0.9 g/dL 0.4-1.8 [facility] Serum or plasma immunoelectr ophoresis interpretation (nominal result)Ordered By: Dr. Joiner on 06-10-2022 Interpretation IEP [Interp] Comment . [facility] Comment on above: No monoclonality det ected. Thin prep Papanicolaou smear with manual screeningOrdered By: Dr. Joiner on 06-10-2022 Thin prep Papanicolaou smear with manual screening 1.2 0.7-1.7 [facility] Total protein bloodOrdered B y: Dr. Joiner on 06-10-2022 Protein [Mass/Vol] 6.3 g/dL 6.0-8.5 [facility] Absolute lymphocyte countOrd ered By: Dr. Patel on 05-30-2022 Lymphocytes Auto (Unsp spec) [#/Vol] 1.65 10*3/uL 0.83-4.51 [facility] Basophil percentageOrdered B y: Dr. Patel on 05-30-2022 Basophils/100 WBC (Bld) 1.0 % 0-1 [facility] Bilirubin [Mass/Vol] 0.70 mg/dL 0.20-1.00 [facility] Comment on above: For patients on eltr ombopag therapy, use of Dimension Ardara TBIL is not recommended. Chloride [Moles/Vol] 106 mmol/L 98-107 [facility] Eosinophils/100 WBC (Bld) 3.9 % 0-5 [facility] Glucose [Mass/Vol] 114 mg/dL 74-106 [facility] Comment on above: Fasting Glucose resu lt from 100 to 125 mg/dL suggests IMPAIRED HOMEOSTASIS per A.D.A. criteria. Neutrophils (Bld) [#/Vol] 2.5 10*3/uL 2.0-7.7 [facility] Neutrophils/100 WBC (Bld) 47.7 % 47-70 [facility] Potassium [Moles/Vol] 4.1 mmol/L 3.5-5.1 [facility] Protein [Mass/Vol] 6.2 g/dL 6.4-8.2 [facility] Sodium [Moles/Vol] 142 mmol/L 136-145 [facility] WBC (Bld) [#/Vol] 5.1 10*3/uL 4.4-11.0 [facility] Blood erythrocytes count (nu mber/volume)Ordered By: Dr. Patel on 05-30-2022 RBC (Bld) [#/Vol] 4.05 10*6/uL 4.2-5.4 [facility] Blood hemoglobin measurement (mass/volume)Ordered By: Dr. Patel on 05-30-2022 Hemoglobin (Bld) [Mass/Vol] 11.5 g/dL 12.0-15.0 [facility] Blood lymphocytes/100 leukoc ytesOrdered By: Dr. Patel on 05-30-2022 Lymphocytes/100 WBC (Bld) 32.2 % 19-41 [facility] Blood monocytes/100 leukocyt esOrdered By: Dr. Patel on 05-30-2022 Monocytes/100 WBC (Bld) 14.8 % 0-10 [facility] Blood platelet mean volumeOr dered By: Dr. Patel on 05-30-2022 Platelet mean volume (Bld) [Entitic vol] 10.2 fL 6.2-12.0 [facility] Determination of erythrocyte mean corpuscular volume (MCV)Ordered By: Dr. Patel on 05-30-2022 MCV (RBC) [Entitic vol] 90.4 fL 81-99 [facility] Hematocrit Auto (Bld) [Volum e fraction]Ordered By: Dr. Patel on 05-30-2022 Hematocrit (Bld) [Volume fraction] 36.6 % 37-47 [facility] Laboratory - Chemistry and C hemistry - challengeOrdered By: Dr. Patel on 05-30-2022 ALP [Catalytic activity/Vol] 67 U/L 45-117 [facility] ALT [Catalytic activity/Vol] 17 U/L 13-56 [facility] CO2 [Moles/Vol] 25.0 mmol/L 21.0-32.0 [facility] Globulin (S) [Mass/Vol] 3.0 g/dL 2.2-4.2 [facility] Urea nitrogen/Creatinine [Mass ratio] 36.1 mg/mg 10-20 [facility] Laboratory - Hematology and Cell countsOrdered By: Dr. Patel on 05-30-2022 Erythrocyte distribution width (RBC) [Entitic vol] 49.0 fL 35.1-43.9 [facility] Erythrocyte distribution width (RBC) [Ratio] 14.9 % 11.6-14.6 [facility] Immature granulocytes/100 WBC (Bld) 0.400 % 0.0-0.9 [facility] Comment on above: IG% - Immature Granu locytes (promyelocytes, myelocytes and metamyelocytes) > 1% indicates that a LEFT SHIFT is Present. MCH (RBC) [Entitic mass] 28.4 pg 27.0-32.0 [facility] Nucleated RBC/100 WBC (Bld) [Ratio] 0 % 0-5 [facility] MCHC Auto (RBC) [Mass/Vol]Or dered By: Dr. Patel on 05-30-2022 MCHC (RBC) [Mass/Vol] 31.4 g/dL 32-36 [facility] No Panel InformationOrdered By: Dr. Patel on 05-30-2022 Estimated GFR (MDRD) Amer 84 mL/min >60 [facility] Comment on above: GFR Calc Estimated GFR (MDRD) Non-Af Amer 69 mL/min >60 [facility] Comment on above: Non- GFR Calc Platelets bldOrdered By: Dr. Patel on 05-30-2022 Platelets (Bld) [#/Vol] 192 10*3/uL 150-450 [facility] Serum or plasma albumin jigar urement (mass/volume)Ordered By: Dr. Patel on 05-30-2022 Albumin [Mass/Vol] 3.2 g/dL 3.2-5.0 [facility] Serum or plasma albumin/glob ulin mass ratioOrdered By: Dr. Patel on 05-30-2022 Albumin/Globulin [Mass ratio] 1.1 {ratio} 0.9-2.4 [facility] Serum or plasma calcium jigar urement (mass/volume)Ordered By: Dr. Patel on 05-30-2022 Calcium [Mass/Vol] 9.4 mg/dL 8.5-10.1 [facility] Serum or plasma creatinine m easurement (mass/volume)Ordered By: Dr. Patel on 05-30-2022 Creatinine [Mass/Vol] 0.83 mg/dL 0.55-1.02 [facility] Comment on above: The validity of the calculated GFR & GFRAA in patients over 70 years has not been determined. Clinical correlation is essential. Serum or plasma urea nitroge n measurement (mass/volume)Ordered By: Dr. Patel on 05-30-2022 Urea nitrogen [Mass/Vol] 30 mg/dL 7-18 [facility] Thin prep Papanicolaou smear with manual screeningOrdered By: Dr. Patel on 05-30-2022 Thin prep Papanicolaou smear with manual screening 23 U/L 15-37 [facility] Thin prep Papanicolaou smear with manual screening 11 5-15 [facility] Absolute lymphocyte countOrd ered By: Dr. Patel on 02-17-2022 Lymphocytes Auto (Unsp spec) [#/Vol] 1.82 10*3/uL 0.83-4.51 [facility] Basophil percentageOrdered B y: Dr. Patel on 02-17-2022 Basophils/100 WBC (Bld) 0.7 % 0-1 [facility] Bilirubin [Mass/Vol] 0.70 mg/dL 0.20-1.00 [facility] Comment on above: For patients on eltr ombopag therapy, use of Dimension [place] TBIL is not recommended. Chloride [Moles/Vol] 104 mmol/L 98-107 [facility] Eosinophils/100 WBC (Bld) 1.3 % 0-5 [facility] Glucose [Mass/Vol] 111 mg/dL 74-106 [facility] Comment on above: Fasting Glucose resu lt from 100 to 125 mg/dL suggests IMPAIRED HOMEOSTASIS per A.D.A. criteria. Neutrophils (Bld) [#/Vol] 5.5 10*3/uL 2.0-7.7 [facility] Neutrophils/100 WBC (Bld) 64.9 % 47-70 [facility] Potassium [Moles/Vol] 3.8 mmol/L 3.5-5.1 [facility] Protein [Mass/Vol] 6.9 g/dL 6.4-8.2 [facility] Sodium [Moles/Vol] 137 mmol/L 136-145 [facility] WBC (Bld) [#/Vol] 8.4 10*3/uL 4.4-11.0 [facility] Blood erythrocytes count (nu mber/volume)Ordered By: Dr. Patel on 02-17-2022 RBC (Bld) [#/Vol] 4.25 10*6/uL 4.2-5.4 [facility] Blood hemoglobin measurement (mass/volume)Ordered By: Dr. Patel on 02-17-2022 Hemoglobin (Bld) [Mass/Vol] 12.6 g/dL 12.0-15.0 [facility] Blood lymphocytes/100 leukoc ytesOrdered By: Dr. Patel on 10-24-2022 Lymphocytes/100 WBC (Bld) 21.6 % 19-41 [facility] Blood monocytes/100 leukocyt esOrdered By: Dr. Patel on 02-17-2022 Monocytes/100 WBC (Bld) 11.3 % 0-10 [facility] Blood platelet mean volumeOr dered By: Dr. Patel on 02-17-2022 Platelet mean volume (Bld) [Entitic vol] 10.0 fL 6.2-12.0 [facility] Determination of erythrocyte mean corpuscular volume (MCV)Ordered By: Dr. Patel on 02-17-2022 MCV (RBC) [Entitic vol] 89.6 fL 81-99 [facility] Hematocrit Auto (Bld) [Volum e fraction]Ordered By: Dr. Patel on 02-17-2022 Hematocrit (Bld) [Volume fraction] 38.1 % 37-47 [facility] Laboratory - Chemistry and C hemistry - challengeOrdered By: Dr. Patel on 02-17-2022 ALP [Catalytic activity/Vol] 79 U/L 45-117 [facility] ALT [Catalytic activity/Vol] 23 U/L 13-56 [facility] CO2 [Moles/Vol] 24.0 mmol/L 21.0-32.0 [facility] Globulin (S) [Mass/Vol] 3.3 g/dL 2.2-4.2 [facility] Urea nitrogen/Creatinine [Mass ratio] 40.8 mg/mg 10-20 [facility] Laboratory - Chemistry and C hemistry - challengeOrdered By: Dr. Joiner on 02-17-2022 Cobalamin (Vitamin B12) [Mass/Vol] 611 pg/mL 211-911 [facility] Laboratory - Hematology and Cell countsOrdered By: Dr. Patel on 02-17-2022 Erythrocyte distribution width (RBC) [Entitic vol] 48.1 fL 35.1-43.9 [facility] Erythrocyte distribution width (RBC) [Ratio] 15.1 % 11.6-14.6 [facility] Immature granulocytes/100 WBC (Bld) 0.200 % 0.0-0.9 [facility] Comment on above: IG% - Immature Granu locytes (promyelocytes, myelocytes and metamyelocytes) > 1% indicates that a LEFT SHIFT is Present. MCH (RBC) [Entitic mass] 29.6 pg 27.0-32.0 [facility] Nucleated RBC/100 WBC (Bld) [Ratio] 0 % 0-5 [facility] MCHC Auto (RBC) [Mass/Vol]Or dered By: Dr. Patel on 02-17-2022 MCHC (RBC) [Mass/Vol] 33.1 g/dL 32-36 [facility] No Panel InformationOrdered By: Dr. Patel on 02-17-2022 Estimated GFR (MDRD) Amer 84 mL/min >60 [facility] Comment on above: GFR Calc Estimated GFR (MDRD) Non-Af Amer 69 mL/min >60 [facility] Comment on above: Non- GFR Calc No Panel InformationOrdered By: Dr. Joiner on 02-17-2022 Free Lambda Light Chains, Quant 18.1 mg/L 5.7-26.3 [facility] Thyroid Stimulating Hormone (TSH) 1.31 uIU/mL 0.358-3.74 [facility] Whole Blood Vitamin B1 Level 199.6 nmol/L 66.5-200.0 [facility] Comment on above: Performed at: [address] [id number] Director: Zeke Schultz PhD, Phone: [phone] at: [facility] Lab[address] [id number] Director: Aris Freedman MD, Phone: [phone] Platelets bldOrdered By: Dr. Patel on 02-17-2022 Platelets (Bld) [#/Vol] 238 10*3/uL 150-450 [facility] Serum immunoglobulin kappa l ight chains/immunoglobulin lambda light chains mass ratioOrdered By: Dr. Joiner on 02-17-2022 Immunoglobulin light chains.kappa/Immunoglobu christiano light chains.lambda (S) [Mass ratio] 1.66 0.26-1.65 [facility] Serum or plasma albumin jigar urement (mass/volume)Ordered By: Dr. Patel on 02-17-2022 Albumin [Mass/Vol] 3.6 g/dL 3.2-5.0 [facility] Serum or plasma albumin/glob ulin mass ratioOrdered By: Dr. Patel on 02-17-2022 Albumin/Globulin [Mass ratio] 1.1 {ratio} 0.9-2.4 [facility] Serum or plasma calcium jigar urement (mass/volume)Ordered By: Dr. Patel on 02-17-2022 Calcium [Mass/Vol] 9.6 mg/dL 8.5-10.1 [facility] Serum or plasma creatinine m easurement (mass/volume)Ordered By: Dr. Patel on 02-17-2022 Creatinine [Mass/Vol] 0.83 mg/dL 0.55-1.02 [facility] Comment on above: The validity of the calculated GFR & GFRAA in patients over 70 years has not been determined. Clinical correlation is essential. Serum or plasma folate measu rement (mass/volume)Ordered By: Dr. Joiner on 02-17-2022 Folate [Mass/Vol] ng/mL 3.1-55.4 [facility] Serum or plasma immunoglobul in kappa light chains measurement (mass/volume)Ordered By: Dr. Joiner on 02-17-2022 Immunoglobulin light chains.kappa [Mass/Vol] 30.1 mg/L 3.3-19.4 [facility] Serum or plasma urea nitroge n measurement (mass/volume)Ordered By: Dr. Patel on 02-17-2022 Urea nitrogen [Mass/Vol] 34 mg/dL 7-18 [facility] Thin prep Papanicolaou smear with manual screeningOrdered By: Dr. Patel on 02-17-2022 Thin prep Papanicolaou smear with manual screening 18 U/L 15-37 [facility] Thin prep Papanicolaou smear with manual screening 9 5-15 [facility] Whole blood hemoglobin A1c/t otal hemoglobin ratio (mass fraction)Ordered By: Dr. Joiner on 02-17-2022 HbA1c (Bld) [Mass fraction] 6.3 % 3.8-5.6 [facility] Comment on above: Normal < 5.7 % Predi abetic 5.7 - 6.4 % Diabetic >or= 6.5 % Please note range changes. ALEKSANDRA SCREENINGon 01-10-2022 [facility] Absolute lymphocyte counton 12-09-2021 Lymphocytes Auto (Unsp spec) [#/Vol] 1.13 10*3/uL 0.83-4.51 [facility] Work Phone: Basophil percentageon 2021 Basophils/100 WBC (Bld) 0.7 % 0-1 [facility] Work Phone: Bilirubin [Mass/Vol] 0.50 mg/dL 0.20-1.00 [facility] Work Phone: Comment on above: For patients on eltr ombopag therapy, use of Dimension [place] TBIL is not recommended. Chloride [Moles/Vol] 107 mmol/L 98-107 [facility] Work Phone: Eosinophils/100 WBC (Bld) 1.3 % 0-5 [facility] Work Phone: Glucose [Mass/Vol] 116 mg/dL 74-106 [facility] Work Phone: Comment on above: Fasting Glucose resu lt from 100 to 125 mg/dL suggests IMPAIRED HOMEOSTASIS per A.D.A. criteria. Neutrophils (Bld) [#/Vol] 3.5 10*3/uL 2.0-7.7 [facility] Work Phone: [phone] Neutrophils/100 WBC (Bld) 64.4 % 47-70 [facility] Work Phone: Potassium [Moles/Vol] 3.9 mmol/L 3.5-5.1 [facility] Work Phone: Protein [Mass/Vol] 6.1 g/dL 6.4-8.2 [facility] Work Phone: Sodium [Moles/Vol] 140 mmol/L 136-145 [facility] Work Phone: WBC (Bld) [#/Vol] 5.5 10*3/uL 4.4-11.0 [facility] Work Phone: Blood erythrocytes count (nu mber/volume)on 12-09-2021 RBC (Bld) [#/Vol] 3.93 10*6/uL 4.2-5.4 [facility] Work Phone: Blood hemoglobin measurement (mass/volume)on 12-09-2021 Hemoglobin (Bld) [Mass/Vol] 11.9 g/dL 12.0-15.0 [facility] Work Phone: [phone] Blood lymphocytes/100 leukoc yteson 12-09-2021 Lymphocytes/100 WBC (Bld) 20.6 % 19-41 [facility] Work Phone: [phone] Blood monocytes/100 leukocyt eson 12-09-2021 Monocytes/100 WBC (Bld) 12.6 % 0-10 [facility] Work Phone: [phone] Blood platelet mean volumeon 12-09-2021 Platelet mean volume (Bld) [Entitic vol] 10.2 fL 6.2-12.0 [facility] Work Phone: Determination of erythrocyte mean corpuscular volume (MCV)on 12-09-2021 MCV (RBC) [Entitic vol] 92.9 fL 81-99 [facility] Work Phone: Hematocrit Auto (Bld) [Volum e fraction]on 12-09-2021 Hematocrit (Bld) [Volume fraction] 36.5 % 37-47 [facility] Work Phone: Laboratory - Chemistry and C hemistry - challengeon 12-09-2021 ALP [Catalytic activity/Vol] 71 U/L 45-117 [facility] Work Phone: ALT [Catalytic activity/Vol] 21 U/L 13-56 [facility] Work Phone: CO2 [Moles/Vol] 26.0 mmol/L 21.0-32.0 [facility] Work Phone: Globulin (S) [Mass/Vol] 3.0 g/dL 2.2-4.2 [facility] Work Phone: Urea nitrogen/Creatinine [Mass ratio] 40.3 mg/mg 10-20 [facility] Work Phone: Laboratory - Hematology and Cell countson 12-09-2021 Erythrocyte distribution width (RBC) [Entitic vol] 48.6 fL 35.1-43.9 [facility] Work Phone: Erythrocyte distribution width (RBC) [Ratio] 14.6 % 11.6-14.6 [facility] Work Phone: Immature granulocytes/100 WBC (Bld) 0.400 % 0.0-0.9 [facility] Work Phone: Comment on above: IG% - Immature Granu locytes (promyelocytes, myelocytes and metamyelocytes) > 1% indicates that a LEFT SHIFT is Present. MCH (RBC) [Entitic mass] 30.3 pg 27.0-32.0 [facility] Work Phone: Nucleated RBC/100 WBC (Bld) [Ratio] 0 % 0-5 [facility] Work Phone: MCHC Auto (RBC) [Mass/Vol]on 12-09-2021 MCHC (RBC) [Mass/Vol] 32.6 g/dL 32-36 [facility] Work Phone: No Panel Informationon 12-09 Estimated GFR (MDRD) Amer 83 mL/min >60 [facility] Work Phone: Comment on above: GFR Calc Estimated GFR (MDRD) Non-Af Amer 68 mL/min >60 [facility] Work Phone: Comment on above: Non- GFR Calc Platelets bldon 12-09-2021 Platelets (Bld) [#/Vol] 219 10*3/uL 150-450 [facility] Work Phone: Serum or plasma albumin jigar urement (mass/volume)on 12-09-2021 Albumin [Mass/Vol] 3.1 g/dL 3.2-5.0 [facility] Work Phone: Serum or plasma albumin/glob ulin mass ratioon 12-09-2021 Albumin/Globulin [Mass ratio] 1.0 {ratio} 0.9-2.4 [facility] Work Phone: Serum or plasma calcium jigar urement (mass/volume)on 12-09-2021 Calcium [Mass/Vol] 9.1 mg/dL 8.5-10.1 [facility] Work Phone: Serum or plasma creatinine m easurement (mass/volume)on 12-09-2021 Creatinine [Mass/Vol] 0.84 mg/dL 0.55-1.02 [facility] Work Phone: Comment on above: The validity of the calculated GFR & GFRAA in patients over 70 years has not been determined. Clinical correlation is essential. Serum or plasma urea nitroge n measurement (mass/volume)on 12-09-2021 Urea nitrogen [Mass/Vol] 34 mg/dL 7-18 [facility] Work Phone: Thin prep Papanicolaou smear with manual screeningon 12-09-2021 Thin prep Papanicolaou smear with manual screening 18 U/L 15-37 [facility] Work Phone: Thin prep Papanicolaou smear with manual screening 7 -15 [facility] Work Phone: Absolute lymphocyte counton 09-25-2021 Lymphocytes Auto (Unsp spec) [#/Vol] 1.19 10*3/uL 0.83-4.51 [facility] Work Phone: Basophil percentageon 2021 Basophils/100 WBC (Bld) 0.7 % 0-1 [facility] Work Phone: Bilirubin [Mass/Vol] 0.70 mg/dL 0.20-1.00 [facility] Work Phone: Comment on above: For patients on eltr ombopag therapy, use of Dimension [place] TBIL is not recommended. Chloride [Moles/Vol] 105 mmol/L 98-107 [facility] Work Phone: Eosinophils/100 WBC (Bld) 2.0 % 0-5 [facility] Work Phone: [phone] Glucose [Mass/Vol] 111 mg/dL 74-106 [facility] Work Phone: Comment on above: Fasting Glucose resu lt from 100 to 125 mg/dL suggests IMPAIRED HOMEOSTASIS per A.D.A. criteria. Neutrophils (Bld) [#/Vol] 3.5 10*3/uL 2.0-7.7 [facility] Work Phone: Neutrophils/100 WBC (Bld) 60.1 % 47-70 [facility] Work Phone: Potassium [Moles/Vol] 3.7 mmol/L 3.5-5.1 [facility] Work Phone: Protein [Mass/Vol] 6.3 g/dL 6.4-8.2 [facility] Work Phone: Sodium [Moles/Vol] 140 mmol/L 136-145 [facility] Work Phone: WBC (Bld) [#/Vol] 5.9 10*3/uL 4.4-11.0 [facility] Work Phone: [phone] Blood erythrocytes count (nu mber/volume)on 09-25-2021 RBC (Bld) [#/Vol] 3.91 10*6/uL 4.2-5.4 [facility] Work Phone: Blood hemoglobin measurement (mass/volume)on 09-25-2021 Hemoglobin (Bld) [Mass/Vol] 11.6 g/dL 12.0-15.0 [facility] Work Phone: Blood lymphocytes/100 leukoc yteson 09-25-2021 Lymphocytes/100 WBC (Bld) 20.3 % 19-41 [facility] Work Phone: [phone] Blood monocytes/100 leukocyt eson 09-25-2021 Monocytes/100 WBC (Bld) 16.7 % 0-10 [facility] Work Phone: Blood platelet mean volumeon 09-25-2021 Platelet mean volume (Bld) [Entitic vol] 10.3 fL 6.2-12.0 [facility] Work Phone: Determination of erythrocyte mean corpuscular volume (MCV)on 09-25-2021 MCV (RBC) [Entitic vol] 91.0 fL 81-99 [facility] Work Phone: Hematocrit Auto (Bld) [Volum e fraction]on 09-25-2021 Hematocrit (Bld) [Volume fraction] 35.6 % 37-47 [facility] Work Phone: Laboratory - Chemistry and C hemistry - challengeon 09-25-2021 ALP [Catalytic activity/Vol] 70 U/L 45-117 [facility] Work Phone: ALT [Catalytic activity/Vol] 20 U/L 13-56 [facility] Work Phone: CO2 [Moles/Vol] 27.0 mmol/L 21.0-32.0 [facility] Work Phone: Globulin (S) [Mass/Vol] 3.1 g/dL 2.2-4.2 [facility] Work Phone: Urea nitrogen/Creatinine [Mass ratio] 39.8 mg/mg 10-20 [facility] Work Phone: Laboratory - Hematology and Cell countson 09-25-2021 Erythrocyte distribution width (RBC) [Entitic vol] 51.1 fL 35.1-43.9 [facility] Work Phone: Erythrocyte distribution width (RBC) [Ratio] 15.3 % 11.6-14.6 [facility] Work Phone: Immature granulocytes/100 WBC (Bld) 0.200 % 0.0-0.9 [facility] Work Phone: Comment on above: IG% - Immature Granu locytes (promyelocytes, myelocytes and metamyelocytes) > 1% indicates that a LEFT SHIFT is Present. MCH (RBC) [Entitic mass] 29.7 pg 27.0-32.0 [facility] Work Phone: Nucleated RBC/100 WBC (Bld) [Ratio] 0 % 0-5 [facility] Work Phone: MCHC Auto (RBC) [Mass/Vol]on 09-25-2021 MCHC (RBC) [Mass/Vol] 32.6 g/dL 32-36 [facility] Work Phone: No Panel Informationon 09-25 Estimated GFR (MDRD) Amer 94 mL/min >60 [facility] Work Phone: Comment on above: GFR Calc Estimated GFR (MDRD) Non-Af Amer 78 mL/min >60 [facility] Work Phone: Comment on above: Non- GFR Calc Platelets bldon 09-25-2021 Platelets (Bld) [#/Vol] 198 10*3/uL 150-450 [facility] Work Phone: Serum or plasma albumin jigar urement (mass/volume)on 09-25-2021 Albumin [Mass/Vol] 3.2 g/dL 3.2-5.0 [facility] Work Phone: Serum or plasma albumin/glob ulin mass ratioon 09-25-2021 Albumin/Globulin [Mass ratio] 1.0 {ratio} 0.9-2.4 [facility] Work Phone: Serum or plasma calcium jigar urement (mass/volume)on 09-25-2021 Calcium [Mass/Vol] 9.2 mg/dL 8.5-10.1 [facility] Work Phone: Serum or plasma creatinine m easurement (mass/volume)on 09-25-2021 Creatinine [Mass/Vol] 0.75 mg/dL 0.55-1.02 [facility] Work Phone: Comment on above: The validity of the calculated GFR & GFRAA in patients over 70 years has not been determined. Clinical correlation is essential. Serum or plasma urea nitroge n measurement (mass/volume)on 09-25-2021 Urea nitrogen [Mass/Vol] 30 mg/dL 7-18 [facility] Work Phone: Thin prep Papanicolaou smear with manual screeningon 09-25-2021 Thin prep Papanicolaou smear with manual screening 20 U/L 15-37 [facility] Work Phone: Thin prep Papanicolaou smear with manual screening 8 5-15 [facility] Work Phone: Absolute lymphocyte counton 07-01-2021 Lymphocytes Auto (Unsp spec) [#/Vol] 1.19 10*3/uL 0.83-4.51 [facility] Work Phone: [phone] Basophil percentageon 2021 Basophils/100 WBC (Bld) 0.2 % 0-1 [facility] Work Phone: Bilirubin [Mass/Vol] 0.30 mg/dL 0.20-1.00 [facility] Work Phone: Comment on above: For patients on eltr ombopag therapy, use of Dimension [place] TBIL is not recommended. Chloride [Moles/Vol] 104 mmol/L 98-107 [facility] Work Phone: Eosinophils/100 WBC (Bld) 2.3 % 0-5 [facility] Work Phone: Glucose [Mass/Vol] 123 mg/dL 74-106 [facility] Work Phone: Comment on above: Fasting Glucose resu lt from 100 to 125 mg/dL suggests IMPAIRED HOMEOSTASIS per A.D.A. criteria. Neutrophils (Bld) [#/Vol] 2.4 10*3/uL 2.0-7.7 [facility] Work Phone: Neutrophils/100 WBC (Bld) 54.1 % 47-70 [facility] Work Phone: Potassium [Moles/Vol] 3.5 mmol/L 3.5-5.1 [facility] Work Phone: [phone] Protein [Mass/Vol] 6.7 g/dL 6.4-8.2 [facility] Work Phone: Sodium [Moles/Vol] 138 mmol/L 136-145 [facility] Work Phone: WBC (Bld) [#/Vol] 4.4 10*3/uL 4.4-11.0 [facility] Work Phone: Blood erythrocytes count (nu mber/volume)on 07-01-2021 RBC (Bld) [#/Vol] 4.02 10*6/uL 4.2-5.[facility] Blood hemoglobin measurement (mass/volume)on 07-01-2021 Hemoglobin (Bld) [Mass/Vol] 12.1 g/dL 12.0-15.0 [facility] Work Phone: Blood lymphocytes/100 leukoc yteson 07-01-2021 Lymphocytes/100 WBC (Bld) 27.0 % 19-41 [facility] Work Phone: Blood monocytes/100 leukocyt eson 07-01-2021 Monocytes/100 WBC (Bld) 15.9 % 0-10 [facility] Work Phone: Blood platelet mean volumeon 07-01-2021 Platelet mean volume (Bld) [Entitic vol] 9.7 fL 6.2-12.0 [facility] Work Phone: Determination of erythrocyte mean corpuscular volume (MCV)on 07-01-2021 MCV (RBC) [Entitic vol] 90.8 fL 81-99 [facility] Work Phone: Hematocrit Auto (Bld) [Volum e fraction]on 07-01-2021 Hematocrit (Bld) [Volume fraction] 36.5 % 37-47 [facility] Work Phone: Laboratory - Chemistry and C hemistry - challengeon 07-01-2021 ALP [Catalytic activity/Vol] 74 U/L 45-117 [facility] Work Phone: ALT [Catalytic activity/Vol] 26 U/L 13-56 [facility] Work Phone: CO2 [Moles/Vol] 29.0 mmol/L 21.0-32.0 [facility] Work Phone: Globulin (S) [Mass/Vol] 3.9 g/dL 2.2-4.2 [facility] Work Phone: Urea nitrogen/Creatinine [Mass ratio] 32.6 mg/mg 10-20 [facility] Work Phone: Laboratory - Hematology and Cell countson 07-01-2021 Erythrocyte distribution width (RBC) [Entitic vol] 48.5 fL 35.1-43.9 [facility] Work Phone: Erythrocyte distribution width (RBC) [Ratio] 14.9 % 11.6-14.6 [facility] Work Phone: Immature granulocytes/100 WBC (Bld) 0.500 % 0.0-0.9 [facility] Work Phone: Comment on above: IG% - Immature Granu locytes (promyelocytes, myelocytes and metamyelocytes) > 1% indicates that a LEFT SHIFT is Present. MCH (RBC) [Entitic mass] 30.1 pg 27.0-32.0 [facility] Work Phone: Nucleated RBC/100 WBC (Bld) [Ratio] 0 % 0-5 [facility] Work Phone: MCHC Auto (RBC) [Mass/Vol]on 07-01-2021 MCHC (RBC) [Mass/Vol] 33.2 g/dL 32-36 [facility] Work [facility]: No Panel Informationon 07-01 Estimated GFR (MDRD) Amer 84 mL/min >60 [facility] Work Phone: Comment on above: GFR Calc Estimated GFR (MDRD) Non-Af Amer 70 mL/min >60 [facility] Work Phone: Comment on above: Non- GFR Calc Platelets bldon 07-01-2021 Platelets (Bld) [#/Vol] 232 10*3/uL 150-450 [facility] Work Phone: Serum or plasma albumin jigar urement (mass/volume)on 07-01-2021 Albumin [Mass/Vol] 2.8 g/dL 3.2-5.0 [facility] Work Phone: Serum or plasma albumin/glob ulin mass ratioon 07-01-2021 Albumin/Globulin [Mass ratio] 0.7 {ratio} 0.9-2.4 [facility] Work Phone: Serum or plasma calcium jigar urement (mass/volume)on 07-01-2021 Calcium [Mass/Vol] 8.7 mg/dL 8.5-10.1 [facility] Work Phone: Serum or plasma creatinine m easurement (mass/volume)on 07-01-2021 Creatinine [Mass/Vol] 0.83 mg/dL 0.55-1.02 [facility] Work Phone: Comment on above: The validity of the calculated GFR & GFRAA in patients over 70 years has not been determined. Clinical correlation is essential. Serum or plasma urea nitroge n measurement (mass/volume)on 07-01-2021 Urea nitrogen [Mass/Vol] 27 mg/dL 7-18 [facility] Work Phone: Thin prep Papanicolaou smear with manual screeningon 07-01-2021 Thin prep Papanicolaou smear with manual screening 23 U/L 15-37 [facility] Work Phone: Thin prep Papanicolaou smear with manual screening 5 5-15 [facility] Work Phone: Office Visit: [facility] 02-27-20 17 Dietary management education, guidance, and counseling (procedure) yes Invalid Interpretation Code [facility] Work Phone: Documentation of current medications (procedure) Done Invalid Interpretation Code [facility] Work Phone: Tobacco use CPHS Never smoker Invalid Interpretation Code [facility] Work Phone: Office Visit: [facility] 08-26-19 17 Fall risk assessment No Invalid Interpretation Code [facility] Work Phone: [phone] Lab Report: Serum Creatinine AND GFRon 07-03-2016 Creatinine [Mass/Vol] 0.96 mg/dL Invalid Interpretation Code 0.55-1.02 [employer] Phone: [phone] eGFR (non-black) 72 mL/min/{1.73_m2} Invalid Interpretation Code >60 [employer] Work Phone: [phone] GFR/1.73 sq M.predicted among non-blacks MDRD (S/P/Bld) [Vol rate/Area] 59 mL/min/{1.73_m2} Low >60 [employer] Phone: [phone] Glomerular Filtration rate 72 mL/min Invalid Interpretation Code >60 [employer] Phone: [phone] Replaced Document: Sebas WATSON Observationson 06-26-2016 EKG QRS axis 6 deg Invalid Interpretation Code [employer] Phone: [phone] electrocardiogram interpretation 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 Invalid Interpretation Code [employer] Phone: [phone] P [place] 32 deg Invalid Interpretation Code [employer] Phone: [phone] P wave axis, electrocardiogram 32 deg Invalid Interpretation Code [employer] Phone: [phone] AZ Interval 174 ms Invalid Interpretation Code [employer] Phone: [phone] AZ interval, electrocardiogram 174 ms Invalid Interpretation Code [employer] Phone: [phone] QRS axis, electrocardiogram 6 deg Invalid Interpretation Code [employer] Phone: [phone] QRS Duration 96 ms Invalid Interpretation Code [employer] Phone: [phone] QRS duration, electrocardiogram 96 ms Invalid Interpretation Code [employer] Phone: [phone] QT Interval new path ms Invalid Interpretation Code [employer] Work Phone: [phone] QT interval, electrocardiogram new path ms Invalid Interpretation Code [employer] Work Phone: [phone] QTc Potts 424 ms Invalid Interpretation Code [employer] Work Phone: [phone] T [place] 42 deg Invalid Interpretation Code [employer] Work Phone: [phone] T wave axis, electrocardiogram 42 deg Invalid Interpretation Code [employer] Work Phone: [phone] Clinical Lists Update: 06-19-2016 Tobacco use status CPHS Never smoker Invalid Interpretation Code [employer] Work Phone: [phone] Clinical Lists Update: 04-30-2016 Alkaline phosphatase (ALP) 66 U/L Invalid Interpretation Code [employer] Work Phone: [phone] ALP (Bld) [Catalytic activity/Vol] 66 U/L Invalid Interpretation Code [employer] Work Phone: [phone] ALT [Catalytic activity/Vol] 19 U/L Invalid Interpretation Code [employer] Work Phone: [phone] AST [Catalytic activity/Vol] 22 U/L Invalid Interpretation Code [employer] Work Phone: [phone] Bilirubin [Mass/Vol] 0.50 mg/dL Invalid Interpretation Code [employer] Work Phone: [phone] Calcium [Mass/Vol] 8.7 mg/dL Invalid Interpretation Code [employer] Work Phone: [phone] Chloride [Moles/Vol] 107 mmol/L Invalid Interpretation Code [employer] Work Phone: [phone] CO2 26.0 mmol/L Invalid Interpretation Code [employer] Work Phone: [phone] CO2 (BldV) [Partial pressure] 26.0 mmol/L Invalid Interpretation Code [employer] Work Phone: [phone] Glucose [Mass/Vol] 79 mg/dL Invalid Interpretation Code [employer] Work Phone: [phone] Hematocrit (Bld) [Volume fraction] 39.7 % Invalid Interpretation Code [employer] Work Phone: [phone] Hematocrit (HCT) 39.7 % Invalid Interpretation Code [employer] Work Phone: [phone] Hemoglobin (Bld) [Mass/Vol] 13.6 g/dL Invalid Interpretation Code [employer] Work Phone: [phone] Platelets 216 10*3/mm3 Invalid Interpretation Code [facility] Work Phone: [phone] Platelets (Bld) [#/Vol] 216 10*3/uL Invalid Interpretation Code [employer] Work Phone: [phone] Potassium [Moles/Vol] 3.4 mmol/L Invalid Interpretation Code [employer] Work Phone: [phone] Protein [Mass/Vol] 7.4 g/dL Invalid Interpretation Code [employer] Work Phone: [phone] Sodium [Moles/Vol] 138 mmol/L Invalid Interpretation Code [employer] Work Phone: [phone] Urea nitrogen [Mass/Vol] 22 mg/dL Invalid Interpretation Code [facility] Work Phone: [phone] Urea nitrogen/Creatinine [Mass ratio] 28.7 mg/mg Invalid Interpretation Code [employer] Work Phone: [phone] WBC (Bld) [#/Vol] 7.1 10*3/uL Invalid Interpretation Code [employer] Work Phone: [phone] WBC (Leukocytes) 7.1 10*3/uL Invalid Interpretation Code [facility] Work Phone: [phone] 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 Olga Hurst MD Work Phone: [facility] 07-13-2024 09:40-0400 Body mass index (BMI) [Ratio] 30.8 kg/m2 Dr. Olga Hurst MD Work Phone: [facility] 07-13-2024 09:40-0400 Body weight 74.[address] Olga Hurst MD Work Phone: [phone] [place] [address] 07-13-2024 09:40-0400 Diastolic blood pressure 69 mm[Hg] Dr. Olga Hurst MD Work Phone: [facility] 07-13-2024 09:40-0400 Systolic blood pressure 135 mm[Hg] Dr. Olga Hurst MD Work Phone: [phone] [address] 06-16-2024 12:59-0500 Body mass index (BMI) [Ratio] 30.2 kg/m2 Dr. Olga Hurst MD Work Phone: [phone] [place] [address] 06-16-2024 12:59-0500 Body temperature 98.2 [degF] Dr. Olga Hurst MD Work Phone: [facility] 06-16-2024 12:59-0500 Body weight 74.[address] Olga Hurst MD Work Phone: [facility] 06-16-2024 12:59-0500 Diastolic blood pressure 68 mm[Hg] Dr. Olga Hurst MD Work Phone: [facility] 06-16-2024 12:59-0500 Heart rate 77 /min Dr. Olga Hurst MD Work Phone: [facility] 06-16-2024 12:59-0500 Respiratory rate 16 /min Dr. Olga Hurst MD Work Phone: [facility] 06-16-2024 12:59-0500 SaO2% (BldA) [Mass fraction] 97 % Dr. Olga Hurst MD Work Phone: [phone] [place] [address] 06-16-2024 12:59-0500 Systolic blood pressure 126 mm[Hg] Dr. Olga Hurst MD Work Phone: [facility] 08-02-2023 15:14-0400 Body temperature 97.8 [degF] Dr. Olga Hurst Work Phone: [facility] 08-02-2023 15:14-0400 Diastolic blood pressure 76 mm[Hg] Dr. Olga Hurst Work Phone: [facility] 08-02-2023 15:14-0400 Heart rate 91 /min Dr. Olga Hurst Work Phone: [facility] 08-02-2023 15:14-0400 Respiratory rate 14 /min Dr. Olga Hurst Work Phone: [facility] 08-02-2023 15:14-0400 SaO2% (BldA) [Mass fraction] 99 % Dr. Olga Hurst Work Phone: [facility] 08-02-2023 15:14-0400 Systolic blood pressure 147 mm[Hg] Dr. Olga Hurst Work Phone: [facility] 08-02-2023 14:48-0400 Body mass index (BMI) [Ratio] 32.3 kg/m2 Dr. Olga Hurst Work Phone: [facility] 08-02-2023 14:48-0400 Body weight 80.[address] Olga Hurst Work Phone: [facility] 08-02-2023 14:14-0400 Body height 157.[address] Olga Hurst Work Phone: [facility] 08-02-2023 10:54-0400 Body temperature 98.1 [degF] Dr. Olga Hurst Work Phone: [facility] 08-02-2023 10:54-0400 Diastolic blood pressure 68 mm[Hg] Dr. Olga Hurst Work Phone: [facility] 08-02-2023 10:54-0400 Heart rate 77 /min Dr. Olga Hurst Work Phone: [facility] 08-02-2023 10:54-0400 Respiratory rate 18 /min Dr. Olga Hurst Work Phone: [facility] 08-02-2023 10:54-0400 SaO2% (BldA) [Mass fraction] 96 % Dr. Olga Hurst Work Phone: [facility] 08-02-2023 10:54-0400 Systolic blood pressure 150 mm[Hg] Dr. Olga Hurst Work Phone: [facility] 07-29-2023 08:19-0400 Body temperature 97.8 [degF] Dr. Olga Hurst Work Phone: [facility] 07-29-2023 08:19-0400 Body weight 76.[address] Olga Hurst Work Phone: [facility] 07-29-2023 08:19-0400 Diastolic blood pressure 78 mm[Hg] Dr. Olga Hurst Work Phone: [facility] 07-29-2023 08:19-0400 Heart rate 76 /min Dr. Olga Hurst Work Phone: [facility] 07-29-2023 08:19-0400 Respiratory rate 14 /min Dr. Olga Hurst Work Phone: [facility] 07-29-2023 08:19-0400 SaO2% (BldA) [Mass fraction] 99 % Dr. Olga Hurst Work Phone: [facility] 07-29-2023 08:19-0400 Systolic blood pressure 140 mm[Hg] Dr. Olga Hurst Work Phone: [facility] 02-04-2023 08:28-0400 Body height 157.[address] Olga Hurst Work Phone: [facility] 02-04-2023 08:28-0400 Body mass index (BMI) [Ratio] 30.7 kg/m2 Dr. Olga Hurst Work Phone: [facility] 02-04-2023 08:28-0400 Body temperature 98.6 [degF] Dr. Olga Hurst Work Phone: [facility] 02-04-2023 08:28-0400 Body weight 76.[address] Olga Hurst Work Phone: [facility] 02-04-2023 08:28-0400 Diastolic blood pressure 64 mm[Hg] Dr. Olga Hurst Work Phone: [facility] 02-04-2023 08:28-0400 Heart rate 82 /min Dr. Olga Hurst Work Phone: [facility] 02-04-2023 08:28-0400 Respiratory rate 17 /min Dr. Olga Hurst Work Phone: [facility] 02-04-2023 08:28-0400 SaO2% (BldA) [Mass fraction] 99 % Dr. Olga Hurst Work Phone: [facility] 02-04-2023 08:28-0400 Systolic blood pressure 120 mm[Hg] Dr. Olga Hurst Work Phone: [facility] 09-16-2022 13:28-0400 Body height 157.[address] Olga Hurst Work Phone: [facility] 09-16-2022 13:28-0400 Body mass index (BMI) [Ratio] 31.1 kg/m2 Dr. Olga Hurst Work Phone: [facility] 09-16-2022 13:28-0400 Body weight 77.[address] Olga Hurst Work Phone: [facility] 09-16-2022 13:28-0400 Diastolic blood pressure 61 mm[Hg] Dr. Olga Hurst Work Phone: [facility] 09-16-2022 13:28-0400 Heart rate 77 /min Dr. Olga Hurst Work Phone: [facility] 09-16-2022 13:28-0400 Respiratory rate 20 /min Dr. Olga Hurst Work Phone: [facility] 09-16-2022 13:28-0400 Systolic blood pressure 97 mm[Hg] Dr. Olga Hurst Work Phone: [facility] 08-01-2022 22:03-0400 Diastolic blood pressure 61 mm[Hg] Dr. Olga Hurst Work Phone: [facility] 08-01-2022 22:03-0400 Heart rate 67 /min Dr. Olga Hurst Work Phone: [facility] 08-01-2022 22:03-0400 Respiratory rate 23 /min Dr. Olga Hurst Work Phone: [facility] 08-01-2022 22:03-0400 SaO2% (BldA) [Mass fraction] 99 % Dr. Olga Hurst Work Phone: [facility] 08-01-2022 22:03-0400 Systolic blood pressure 126 mm[Hg] Dr. Olga Hurst Work Phone: [facility] 08-01-2022 19:41-0400 Body temperature 96.3 [degF] Dr. Olga Hurst Work Phone: [facility] 08-01-2022 19:37-0400 Body height 157.[address] Olga Hurst Work Phone: [facility] 08-01-2022 19:37-0400 Body mass index (BMI) [Ratio] 31.8 kg/m2 Dr. Olga Hurst Work Phone: [facility] 08-01-2022 19:37-0400 Body weight [address] Olga Hurst Work Phone: [facility] 07-31-2022 09:21-0400 Body temperature 98.6 [degF] Dr. Olga Hurst Work Phone: [facility] 07-31-2022 09:21-0400 Diastolic blood pressure 74 mm[Hg] Dr. Olga Hurst Work Phone: [facility] 07-31-2022 09:21-0400 Heart rate 81 /min Dr. Olga Hurst Work Phone: [facility] 07-31-2022 09:21-0400 Respiratory rate 15 /min Dr. Olga Hurst Work Phone: [facility] 07-31-2022 09:21-0400 SaO2% (BldA) [Mass fraction] 97 % Dr. Olga Hurst Work Phone: [facility] 07-31-2022 09:21-0400 Systolic blood pressure 120 mm[Hg] Dr. Olga Hurst Work Phone: [facility] 07-21-2022 13:36-0400 Body weight 78.38 kg Kamille Melendez MD Work Phone: [facility] 07-21-2022 13:36-0400 Diastolic blood pressure 60 mm[Hg] Kamille Melendez MD Work Phone: [facility] 07-21-2022 13:36-0400 Systolic blood pressure 110 mm[Hg] Kamille Melendez MD Work Phone: [facility] 07-09-2022 08:15-0400 Body weight 78.47 kg Kamille Melendez MD Work Phone: [facility] 07-09-2022 08:15-0400 Diastolic blood pressure 60 mm[Hg] Kamille Melendez MD Work Phone: [facility] 07-09-2022 08:15-0400 Systolic blood pressure 128 mm[Hg] Kamille Melendez MD Work Phone: [facility] 06-10-2022 08:01-0500 Body height 154.[address] Olga Hurst Work Phone: [facility] 06-10-2022 08:01-0500 Body mass index (BMI) [Ratio] 32.8 kg/m2 Dr. Olga Hurst Work Phone: [facility] 06-10-2022 08:01-0500 Body temperature 97.8 [degF] Dr. Olga Hurst Work Phone: [facility] 06-10-2022 08:01-0500 Body weight 78.[address] Olga Hurts Work Phone: [facility] 06-10-2022 08:01-0500 Diastolic blood pressure 60 mm[Hg] Dr. Olga Hurst Work Phone: [facility] 06-10-2022 08:01-0500 Heart rate 75 /min Dr. Olga Hurst Work Phone: [facility] 06-10-2022 08:01-0500 Respiratory rate 16 /min Dr. Olga Hurst Work Phone: [facility] 06-10-2022 08:01-0500 SaO2% (BldA) [Mass fraction] 99 % Dr. Olga Hurst Work Phone: [facility] 06-10-2022 08:01-0500 Systolic blood pressure 118 mm[Hg] Dr. Olga Hurst Work Phone: [facility] 05-28-2022 10:03-0500 Body weight 78.47 kg Kamille Melendez MD Work Phone: [facility] 05-28-2022 10:03-0500 Diastolic blood pressure 64 mm[Hg] Kamille Melendez MD Work Phone: [facility] 05-28-2022 10:03-0500 Systolic blood pressure 120 mm[Hg] Kamille Melendez MD Work Phone: [facility] 02-24-2022 11:15-0400 Body weight 78.47 kg Kamille Melendez MD Work Phone: [facility] 02-24-2022 11:15-0400 Diastolic blood pressure 62 mm[Hg] Kamille Melendez MD Work Phone: [facility] 02-24-2022 11:15-0400 Systolic blood pressure 100 mm[Hg] Kamille Melendez MD Work Phone: [facility] 12-25-2021 08:09-0400 Body weight 78.02 kg Kamille Melendez MD Work Phone: [facility] 12-25-2021 08:09-0400 Diastolic blood pressure 64 mm[Hg] Kamille Melendez MD Work Phone: [facility] 12-25-2021 08:09-0400 Systolic blood pressure 118 mm[Hg] Kamille Melendez MD Work Phone: [facility] 11-13-2021 15:16-0400 Body weight 74.39 kg Kamille Melendez MD Work Phone: [facility] 11-13-2021 15:16-0400 Diastolic blood pressure 64 mm[Hg] Kamille Melendez MD Work Phone: [facility] 11-13-2021 15:16-0400 Systolic blood pressure 116 mm[Hg] Kamille Melendez MD Work Phone: [facility] 10-02-2021 08:06-0400 Body weight 76.2 kg Kamille Melendez MD Work Phone: [facility] 10-02-2021 08:06-0400 Diastolic blood pressure 60 mm[Hg] Kamille Melendez MD Work Phone: [facility] 10-02-2021 08:06-0400 Systolic blood pressure 108 mm[Hg] Kamille Melendez MD Work Phone: [facility] 09-30-2021 11:54-0400 Diastolic blood pressure 51 mm[Hg] Dr. Olga Hurst Work Phone: [facility] Work Phone: 09-30-2021 11:54-0400 Heart rate 65 /min Dr. Olga Hurst Work Phone: [facility] Work Phone: 09-30-2021 11:54-0400 Respiratory rate 16 /min Dr. Olga Hurst Work Phone: [facility] Work Phone: 09-30-2021 11:54-0400 SaO2% (BldA) [Mass fraction] 100 % Dr. Olga Hurst Work Phone: [facility] Work Phone: 09-30-2021 11:54-0400 Systolic blood pressure 133 mm[Hg] Dr. Olga Hurst Work Phone: [facility] Work Phone: 09-30-2021 10:00-0400 Body height 154.[address] Olga Hurst Work Phone: [facility] Work Phone: 09-30-2021 10:00-0400 Body mass index (BMI) [Ratio] 32.3 kg/m2 Dr. Olga Hurst Work Phone: [facility] Work Phone: 09-30-2021 10:00-0400 Body weight 77.[address] Olga Hurst Work Phone: [facility] Work Phone: 09-30-2021 09:23-0400 Body temperature 98 [degF] Dr. Olga Hurst Work Phone: [facility] Work Phone: 08-21-2021 08:38-0400 Body weight 74.39 kg Kamille Melendez MD Work Phone: [facility] 08-21-2021 08:38-0400 Diastolic blood pressure 62 mm[Hg] Kamille Melendez MD Work Phone: [facility] 08-21-2021 08:38-0400 Systolic blood pressure 120 mm[Hg] Kamille Melendez MD Work Phone: [facility] 07-12-2021 15:03-0400 Body weight 75.[address] Olga Hurst Work Phone: [facility] Work Phone: 07-12-2021 15:03-0400 Diastolic blood pressure 62 mm[Hg] Dr. Olga Hurst Work Phone: [facility] Work Phone: 07-12-2021 15:03-0400 Heart rate 76 /min Dr. Olga Hurst Work Phone: [facility] Work Phone: 07-12-2021 15:03-0400 Respiratory rate 18 /min Dr. Olga Hurst Work Phone: [facility] Work Phone: 07-12-2021 15:03-0400 Systolic blood pressure 124 mm[Hg] Dr. Olga Hurst Work Phone: [facility] Work Phone: 07-12-2021 15:03-0400 Body weight 75.[address] Olga Hurst Work Phone: [facility] Work Phone: 07-12-2021 15:03-0400 Diastolic blood pressure 62 mm[Hg] Dr. Olga Hurst Work Phone: [facility] Work Phone: 07-12-2021 15:03-0400 Heart rate 76 /min Dr. Olga Hurst Work Phone: [facility] Work Phone: 07-12-2021 15:03-0400 Respiratory rate 18 /min Dr. Olga Hurst Work Phone: [facility] Work Phone: 07-12-2021 15:03-0400 Systolic blood pressure 124 mm[Hg] Dr. Olga Hurst Work Phone: [facility] Work Phone: 10-04-2020 08:58-0400 Body mass index (BMI) [Ratio] 32.5 kg/m2 Dr. Olga Hurst Work Phone: [facility] Work Phone: 10-04-2020 08:58-0400 Body mass index (BMI) [Ratio] 32.5 kg/m2 Dr. Olga Hurst Work Phone: [facility] Work Phone: 02-26-2017 13:01-0400 BMI (Body Mass Index) 33.83 kg/m2 [facility] Work Phone: 02-26-2017 13:01-0400 BP Diastolic 66 mm[Hg] [facility] Work Phone: 02-26-2017 13:01-0400 BP Systolic 122 mm[Hg] [facility] Work Phone: 02-26-2017 13:01-0400 Height 157.48 cm [facility] Work Phone: 02-26-2017 13:01-0400 Pulse (Heart Rate) 76 /min [facility] Work Phone: 02-26-2017 13:01-0400 Weight 83.92 kg [facility] Work Phone: 08-25-2016 09:45-0400 Body height 157.48 cm Ramila Muir [facility] Work Phone: 08-25-2016 09:45-0400 Body [...] Patient encounter procedure Dr. Francine Pierce MD -[facility] Work Phone: Start: 07-13-2024 End: 07-13-2024 ambulatory Olga Hurst [place] [place]: 07-06-2024 End: 07-06-[address] Olga Hurst MD Work Phone: [facility] Work Phone: Start: 07-06-2024 End: 07-06-[address] Olga Hurst MD -[facility] Work Phone: Start: 07-06-2024 End: 07-06-2024 ambulatory Olga Hurst Facility:[facility] Start: 06-16-2024 End: 06-16-[address] Jb Joiner MD -[facility] Work Phone: Start: 06-16-2024 End: 06-16-2024 ambulatory Olga Hurst Facility:[facility] Start: 06-07-2024 End: 06-07-[address] Olga Hurst MD -Radiology, [place] Work Phone: Start: 06-07-2024 End: 06-07-2024 ambulatory Olga Hurst Facility:[facility] Start: 05-16-2024 End: 05-16-[address] Olga Hurst MD -[facility] Work Phone: Start: 05-16-2024 End: 05-16-2024 ambulatory Olga Hurst Facility:[facility] Start: 04-14-2024 End: 04-14-2024 ambulatory OLGA HURST Facility:[facility] Start: 04-14-2024 End: 04-14-2024 Subsequent hospital visit by physician [facility] Start: 04-14-2024 End: 04-14-[address] Pavel Cartagena MD -[facility] Work Phone: Start: 04-14-2024 End: 04-14-2024 ambulatory Pavel Munizison Facility:[facility] Start: 03-03-2024 End: 03-03-2024 ambulatory Pavel Munizison Facility:[facility] Start: 02-19-2024 End: 02-19-2024 ambulatory Pavel Munizison Facility:[facility] Start: 02-17-2024 ambulatory Pavel Munizison Facility :[facility] Start: 02-17-2024 End: 02-17-2024 ambulatory Pavel Flavioison Facility:[facility] Start: 02-10-2024 End: 02-10-2024 ambulatory Leonid oJnes Facility:[facility] Start: 01-18-2024 End: 01-18-2024 ambulatory Pavel Cartagena Facility:[facility] Start: 12-22-2023 End: 12-22-2023 ambulatory Jb Joiner Facility:[facility] Start: 12-22-2023 End: 12-22-2023 ambulatory Sherin Patel Facility:[facility] Start: 12-04-2023 End: 12-04-2023 ambulatory Olga Hurst Facility:[facility] Start: 11-04-2023 End: 11-04-2023 ambulatory Sherin Jorge Facility:[facility] Start: 10-27-2023 End: 10-27-2023 ambulatory Olga Hurst [place] [place] Start: 10-06-2023 End: 10-06-2023 Emergency department patient visit Olga Hurst Facility:[facility] Start: 09-25-2023 End: 09-25-2023 ambulatory Olga Hurst Facility:[facility] Start: 09-14-2023 End: 09-14-2023 ambulatory Olga Husrt Facility:[facility] Start: 08-26-2023 ambulatory Jb Ramírezrhona Facilit y:[facility] Start: 08-26-2023 Non-patient / Non-visit Dr. Alejandra Hurst Work Phone: [facility] Start: 08-26-2023 End: 08-26-[address] Olga Hurst Work Phone: [facility] Work Phone: Start: 08-26-2023 End: 08-26-[address] Olga Hurst Work Phone: [facility]-Pulmonary Services/Neurology Work Phone: Start: 08-26-2023 End: 08-26-2023 ambulatory Jb Joiner Facility:[facility] Start: 08-12-2023 End: 08-12-[address] Olga Hurst Work Phone: [facility] Work Phone: Start: 08-12-2023 End: 08-12-[address] Olga Hurst Work Phone: [facility] Start: 08-12-2023 End: 08-12-2023 ambulatory Sherin Patel Facility:[facility] Start: 08-02-2023 End: 08-02-2023 Emergency department patient [facility] Hur[facility] Start: 08-02-2023 End: 08-02-[address] Olga Hurst Work Phone: [facility] Work Phone: Start: 08-02-2023 End: 08-02-2023 ambulatory Olga Hurst Facility:[facility] Start: 07-29-2023 End: 07-29-[address] Olga Hurst Work Phone: [facility] Work Phone: Start: 07-29-2023 End: 07-29-2023 ambulatory Olga Hurst [place] [place] Start: 05-13-2023 End: 05-13-[address] Olga Hurst Work Phone: [facility] Work Phone: Start: 05-13-2023 End: 05-13-[address] Olga Hurst Work Phone: [facility] Start: 02-04-2023 End: 02-04-[address] Olga Hurst Work Phone: [facility] Work Phone: Start: 01-29-2023 Documentation procedure Mammog chucky Coordinator [facility] Start: 01-29-2023 Letter encounter Mammography Coordinator [facility] Department Start: 01-26-2023 End: 01-26-[address] Olga Hurst Work Phone: [facility] Start: 01-23-2023 End: 01-23-[address] Olga Hurst Work Phone: [facility] Work Phone: Start: 10-22-2022 End: 10-22-[address] Olga Hurst Work Phone: [facility] Work Phone: Start: 10-22-2022 End: 10-22-[address] Olga Hurst Work Phone: [facility]-Cardiovascul ar Services Work Phone: Start: 09-16-2022 End: 09-16-[address] Olga Hurst Work Phone: [facility] Work Phone: Start: 08-28-2022 End: 08-28-[address] Olga Hurst Work Phone: [facility] Work Phone: Start: 08-28-2022 End: 08-28-[address] Olga Hurst Work Phone: [facility] Start: 08-01-2022 End: 08-01-2022 Emergency department patient visit Dr. Olga Hurst Work Phone: [facility]-Emergency Department Start: 07-31-2022 End: 07-31-[address] Olga Hurst Work Phone: [facility] Start: 07-21-2022 End: 07-21-2022 Patient encounter [...] 06-10-[address] Olga Hurst Work Phone: [facility] Work Phone: Start: 06-10-2022 End: 06-10-[address] Olga Hurst Work Phone: [facility] Start: 06-10-2022 End: 06-10-[address] Olga Hurst Work Phone: [facility] Neu[facility] Start: 05-30-2022 End: 05-30-[address] Olga Hurst Work Phone: [facility] Work Phone: Start: 05-30-2022 End: 05-30-[address] Olga Hurst Work Phone: [facility] Start: 05-28-2022 End: 05-28-2022 Patient encounter [...] encounter procedure Dr. Olga Hurst Work Phone: [facility] Start: 02-17-2022 End: 02-17-[address] Olga Hurst Work Phone: [facility] Start: 01-10-2022 Documentation procedure Mammog chucky Coordinator [facility] Start: 01-10-2022 Letter encounter Mammography Coordinator [facility] Department Start: 01-10-2022 End: 01-10-2022 Subsequent hospital visit by physician Screen Mammo [facility] Start: 12-25-2021 End: 12-25-2021 Patient encounter procedure Kamille Neyhart Melendez MD Work Phone: OB/Gynecology Comment on above: Female genital prola pse, unspecified type (Primary Dx); Pessary maintenance; Vaginal irritation from pessary (HCC); Yeast dermatitis Start: 12-09-2021 End: 12-09-2021 Patient encounter procedure [facility] Start: 11-13-2021 End: 11-13-2021 Patient encounter procedure Kamille Melendez MD Work Phone: OB/Gynecology Comment on above: Pessary maintenance (Primary Dx); Female genital prolapse, unspecified type Start: 10-14-2021 End: 10-14-[address] Olga Hurst Work Phone: [facility] Start: 10-02-2021 End: 10-02-2021 Patient encounter procedure Kamille Melendez MD Work Phone: OB/Gynecology Comment on above: Pessary maintenance (Primary Dx); Female genital prolapse, unspecified type Start: 09-30-2021 End: 09-30-2021 Emergency department patient visit Dr. Olga Hurst Work Phone: [facility]-Emergency Department Start: 09-25-2021 End: 09-25-[address] Olga Hurst Work Phone: [facility] Start: 08-21-2021 End: 08-21-2021 Patient encounter procedure Kamille Melendez MD Work Phone: OB/Gynecology Comment on above: Pessary maintenance (Primary Dx); Female genital prolapse, unspecified type Start: 07-12-2021 End: 07-12-[address] Olga Hurst Work Phone: [facility] Start: 07-01-2021 End: 07-01-[address] [facility] Hurst [facility] Start: 11-28-2008 End: 09-23-2011 Patient encounter status [facility] End: 09-23-2011 Patient encounter status Screen [facility] Procedures Date Procedure Procedure Detail [...] art compl bi study Chaitanya Puente Bass ALARM FIELD TECHNICIAN-C Start: 08-25-2016 End: 08-25-2016 Follow Up Appt 6 months Chaitanya Puente Bass ALARM FIELD TECHNICIAN -C Start: 08-25-2016 End: 08-25-2016 PFM Chaitanya Puente Bass ALARM FIELD TECHNICIAN-C Start: 08-25-2016 End: 08-25-2016 Documentation of current medications Ramila Muir Start: 08-25-2016 End: 08-25-2016 Follow Up Appt 6 months Chaitanya Puente Bass ALARM FIELD TECHNICIAN -C Start: 08-25-2016 End: 08-25-2016 PFM Chaitanya Puente Bass ALARM FIELD TECHNICIAN-C Start: 07-01-2016 End: 07-04-2016 Ct head/brain [...] 04-11-2024 Covid-19 Vaccine () Covid-19 Vaccine () [facility] Start: 08-02-2023 [facility] Start: 04-27-2023 Advance Directive Discussion Advance Directive Discussion [facility] Start: 03-16-2023 Covid-19 Vaccine (6 - Pfizer risk series) Covid-19 Vaccine (6 - Pfizer risk series) [facility] Start: 08-01-2022 [facility] Start: 06-10-2022 Serum immunofixation [facility] Start: 06-10-2022 Urine immunofixation [facility] Start: 04-27-2022 ADVANCE DIRECTIVE DISCUSSION ADVANCE DIRECTIVE DISCUSSION [facility] Start: 04-27-2022 DEPRESSION ASSESSMENT DEPRESSION ASSESSMENT [facility] Start: 01-01-2022 COVID-19 VACCINE (5 - Booster for Pfizer series) COVID-19 VACCINE (5 - Booster for Pfizer series) [facility] Start: 12-26-2021 Influenza vaccination INFLUENZA (#1) [facility] Start: 05-07-2021 COVID-19 VACCINE (4 - Booster for Pfizer series) COVID-19 VACCINE (4 - Booster for Pfizer series) [facility] Start: 01-01-2022 ADVANCE DIRECTIVE DISCUSSION ADVANCE DIRECTIVE DISCUSSION [facility] Start: 04-27-2021 DEPRESSION ASSESSMENT DEPRESSION ASSESSMENT [facility] Start: 08-27-2018 FECAL OCCULT BLOOD FECAL OCCULT BLOOD [facility] Start: 03-15-2018 End: 03-15-2018 Appointment Appointment [facility] Work Phone: Start: 10-05-2017 DIABETES SCREEN DIABETES SCREEN [facility] Start: 10-05-2017 Diabetes Screening Diabetes Screening [facility] Start: 08-31-2017 End: 08-31-2017 Patient encounter procedure Appointment [facility] Work Phone: Start: 03-09-2017 Shingrix Vaccine (1 of 2) Shingrix Vaccine (1 of 2) [facility] Start: 02-26-2017 End: 02-26-2017 Follow Up Appt 1 year Follow Up Appt 1 year [facility] Work Phone: Start: 02-26-2017 End: 02-26-2017 PFM PFM [facility] Work Phone: Start: 02-26-2017 End: 02-26-2017 Patient encounter procedure Appointment [facility] Work Phone: Start: 08-25-2016 End: 08-25-2016 Duplex scan extracranial art compl bi study Carotid Duplex Bilateral - Routine [facility] Work Phone: Start: 08-25-2016 End: 08-25-2016 Follow Up Appt 6 months Follow Up Appt 6 months [facility] Work Phone: Start: 08-25-2016 End: 08-25-2016 PFM PFM [facility] Work Phone: Start: 08-25-2016 End: [...] Phone: Start: 08-25-2016 End: 08-25-2016 PFM PFM [facility] Work Phone: Start: 06-26-2016 End: 06-26-2016 Ct head/brain w/o & w/contrast material CT Head/Brain with and without Contrast [employer] Work Phone: Start: 06-26-2016 End: 06-26-2016 Ecg routine ecg w/least 12 lds w/i&r EKG (In office) [employer] [facility] Work Phone: Start: 06-26-2016 End: 06-26-2016 Echocardiography Echocardiogram (complete) [employer] Work Phone: Start: 06-26-2016 End: 06-26-2016 Follow Up Appt 2 months Follow Up Appt 2 months [employer] Work Phone: Start: 06-26-2016 End: 06-26-2016 MMM MMM [employer] Work Phone: Start: 06-26-2016 End: 06-26-2016 Mayi Zhaopinrnl mobile cv telemetry w/i&report 30 days 30 Day Holter Monitor [employer] Work Phone: Start: 06-26-2016 End: 06-26-2016 Ct head/brain w/o & w/contrast material CT Head/Brain with and without Contrast [employer] Work Phone: Start: 06-26-2016 End: 06-26-2016 Ecg routine ecg w/least 12 lds w/i&r EKG (In office) [facility] Work Phone: Start: 06-26-2016 End: 06-26-2016 Echocardiography Echocardiogram (complete) [employer] Work Phone: Start: 06-26-2016 End: 06-26-2016 Follow Up Appt 2 months Follow Up Appt 2 months [employer] Work Phone: Start: 06-26-2016 End: 06-26-2016 MMM MMM [employer] Work Phone: Start: 06-26-2016 End: 06-26-2016 Xtrnl mobile cv telemetry w/i&report 30 days 30 Day Holter Monitor [facility] Work Phone: Start: 10-18-2015 Urine microalbumin profile [facility] Start: 04-23-2012 Screening for malignant neoplasm of cervix Cervical Cancer Screening [facility] Start: 01-29-2012 RSV Vaccine (1 - 1-dose 75+ series) RSV Vaccine (1 - 1-dose 75+ series) [facility] Start: 01-19-2007 Pneumococcal Vaccine: 50+ (2 of 2 - PCV) Pneumococcal Vaccine: 50+ (2 of 2 - PCV) [facility] Start: 01-19-2007 Pneumococcal Vaccine: 65+ (2 - PCV) Pneumococcal Vaccine: 65+ (2 - PCV) [facility] Start: 01-19-2007 PNEUMOCOCCAL: 65+ (2 - PCV) PNEUMOCOCCAL: 65+ (2 - PCV) [facility] Start: 1987 SHINGRIX VACCINE (1 of 2) SHINGRIX VACCINE (1 of 2) [facility] Start: 01-29-1956 SHINGRIX VACCINE (1 of 2) SHINGRIX VACCINE (1 of 2) [facility] Start: 1955 Anxiety Screening Anxiety Screening [facility] Start: 1955 Depression Screening Depression Screening [facility] Albumin [Moles/volum e] in Serum or Plasma [facility] Albumin/Globulin ratio [facility] Electrophoresis: [id number] [facility] Electrophoresis: josep ma globulin [facility] Globulin measurement [facility] IgA [Mass/volume] in Serum or Plasma [facility] IgG [Mass/volume] in Serum or Plasma [facility] IgM [Mass/volume] in Serum or Plasma [facility] Patient Education [facility] Work Phone: Patient referral [facility] Work Phone: Protein electrophore sis panel - Serum or Plasma [facility] Serum protein electrophoresis [facility] Immunizations Immunization Date Immunization Notes Care Provider Vera franco 07-19-2020 COVID-19 vaccine, ag e 12+ yr (PFIZER-BIONTECH - PURPLE TOP) Kamille Melendez MD Work Phone: [facility] 06-26-2020 COVID-19 vaccine, ag e 12+ yr (PFIZER-BIONTECH - PURPLE TOP) Kamille Melendez MD Work Phone: [facility] 02-01-2011 influenza virus vacc ine, unspecified formulation Kamille Melendez MD Work Phone: [facility] Work Phone: 02-06-2010 influenza virus vacc ine, unspecified formulation Kamille Melendez MD Work Phone: [facility] Work Phone: 02-06-2009 influenza virus vacc ine, unspecified formulation Kamille Melendez MD Work Phone: [facility] Work Phone: 03-01-2008 influenza virus vacc ine, unspecified formulation Kamille Melendez MD Work Phone: [facility] Work Phone: 03-02-2007 influenza virus vacc ine, unspecified formulation Kamille Melendez MD Work Phone: [facility] Work Phone: 03-02-2006 influenza virus vacc ine, unspecified formulation Kamille Melendez MD Work Phone: [facility] Work Phone: 01-19-2006 pneumococcal polysaccharide vaccine, 23 valent Kamille Melednez MD Work Phone: [facility] Work Phone: 10-17-2005 diphtheria and tetan us toxoids, adsorbed for pediatric use Kamille Melendez MD Work Phone: [facility] Work Phone: 03-06-2005 influenza virus vacc ine, unspecified formulation Kamille Melendez MD Work Phone: [facility] Work Phone: Payers Date Payer Category Payer Self-pay [id number] 2021 Medicare AETNA MEDICARE A ETNA MEDICARE PPO [id number] 2021-Present [phone] [address] [place] [address] PPO [id number] 2021 Medicare AETNA MEDICARE A ETNA MEDICARE PPO [id number] 2021-Present [phone] [address] [place] [address] PPO [id number] 2015 Private Health Insurance [id number] Unknown [id number] 2.16.840.1.206378.3.579.2.4 62 Unknown [id number] 2.16.840.1.728610.3.579.2.4 62 Unknown [id number] 2.16.840.1.948534.3.579.2.4 62 Unknown [id number] 2.16.840.1.837763.3.579.2.4 62 Unknown [id number] 2.16.840.1.958457.3.579.2.4 62 Unknown [id number] 2.16.840.1.040805.3.579.2.4 62 Unknown [id number] 2.16.840.1.329803.3.579.2.4 62 Unknown [id number] 2.16.840.1.373219.3.579.2.4 62 Unknown [id number] 2.16.840.1.363474.3.579.2.4 62 Unknown [id number] 2.16.840.1.757256.3.579.2.4 62 Unknown [id number] 2.16.840.1.754462.3.579.2.4 62 Unknown [id number] 2.16.840.1.592082.3.579.2.4 62 Unknown [id number] 2.16.840.1.712611.3.579.2.4 62 Unknown [id number] 2.16.840.1.999257.3.579.2.4 62 Unknown [id number] 2.16.840.1.075261.3.579.2.4 62 Unknown [id number] 2.16.840.1.835188.3.579.2.4 62 Unknown [id number] 2.16.840.1.694867.3.579.2.4 62 Unknown [id number] 2.16.840.1.074970.3.579.2.4 62 Unknown [id number] 2.16.840.1.130496.3.579.2.4 62 Unknown [id number] 2.16.840.1.562360.3.579.2.4 62 Unknown [id number] 2.16.840.1.637745.3.579.2.4 62 Unknown [id number] 2.16.840.1.904801.3.579.2.4 62 Unknown [id number] 2.16.840.1.494859.3.579.2.4 62 Unknown [id number] 2.16.840.1.138065.3.579.2.4 62 Unknown [id number] 2.16.840.1.817895.3.579.2.4 62 Unknown [id number] 2.16.840.1.989254.3.579.2.4 62 Social History Date Type Detail Facility Start: 12-25-2021 End: 07-13-2024 Tobacco smoking status NHIS Never smoked tobacco [facility] Start: 08-21-2021 End: 07-21-2022 Alcohol intake Current non-drinker of alcohol (finding) [facility] Start: 1935 Sex Assigned At Not on file [facility] Start: 09-30-2021 End: 08-02-2023 Tobacco smoking status NHIS Unknown if ever smoked [facility] Start: 1935 Sex Assigned At Female [facility] Start: 09-22-2021 End: 01-03-2022 Exposure to SARS-CoV-2 (event) Not sure [facility] Start: 12-25-2021 Tobacco use and exposure Smokeless tobacco non-user [facility] Start: 07-19-2015 None [facility] Start: 07-19-2015 Non-smoker [facility] Start: 07-21-2022 End: 04-14-2024 History of Social function [facility] Start: 07-21-2022 End: 04-14-2024 Tobacco use panel [facility] National Score (1-100), lower number is lower risk 48 [facility] Start: 07-13-2024 Sex Female (finding) [facility] Medical Equipment Procedure Code Equipment Code Equipment Origin al Text Equipment Identifier Dates Graft Dura 2x2in [facility] - [id number] Start: 03-03-2011 Comment on above: Description: duragen plus Maupin Hole Cover 10mm - [id number] Start: 03-03-2011 Comment on above: Description: lauren ho le cover Plate Micro 2-Ho le 10mm Bar - [id number] Start: 03-03-2011 Comment on above: Description: 2-hole plate Screw Self Drilling 1.5x4mm - [id number] Start: 03-03-2011 Comment on above: Description: screw Mental Status Date Assessment Result Facility 08-02-2023 Cognitive function Level Of Cons ciousness Awake;Alert;Appropriate;Drowsy [facility] Work Phone: 09-30-2021 Cognitive function Voice/Name [facility] Work Phone: Clinical Notes 03-27-2009 to 07-06-2024 Note Date & Type Note Facility 07-06-2024 Radiology Diagnostic study note [facility] Imaging Services [address] [place], [place] [address] Soft Tissue Neck WITH Contrast MR#: [id number] Acct: [id number] Name: SUSAN SENIOR Rep #: [id number] : 1935 F 89 From: Marco Antonio Denton MD PCP: Dr. Olga Hurst MD Status: REG CLI Study:Soft Tissue Neck WITH Contrast Date of Exam: 07/06/24 Exam# [id number] Ordering Dr: Olga Hurst MD PROCEDURE: SOFT [...] use of iterative reconstruction technique). Reading Location: [place] [address] CC: Dr. Olga Hurst MD ~ Fuel Storage Technician: Signed [facility] 04-14-2024 Evaluation note Diagnosis Onset Date Resolution Carpal tunnel syndrome, right resolved April 14, 2 024 8:19am Trigeminal neuropathy chronic Fe ru2024 12:52pm Carpal tunnel syndrome, right resolved June 16, 025 12:52pm Cubital tunnel syndrome on right inactive June 16, 2024 12:52pm Candidal intertrigo acute July 13, 2024 9:35am Cystocele acute July 13 9:35am [facility] Work Phone: 1(386) 192-605012-19-2024 History of Present illness Narrative* Rosmery Perez [...] PATIENT PRESENTS WITH AN IMPLANTABLE OR ATTACHED BAND TIER: No RADIOLOGY DEPARTMENT: Mammography PERIPHERAL IV DATA: Not applicable SIGNED BY: Zelda Ventura April 14, 2024 10:29 AM documented [facility]12-[facility]-2024 NoteHNO ID: [id number] Author: ROSMERY PEREZ Mammo Tech Service: ? Author Type: Project Scheduler Type: Progress Notes Filed: 04/14/2024 10:29 Note [...] PATIENT PRESENTS WITH AN IMPLANTABLE OR ATTACHED BAND TIER: No RADIOLOGY DEPARTMENT: Mammography PERIPHERAL IV DATA: Not applicable SIGNED BY: Rosmery Perez [email or web address] April 14, 2024 10:29 [facility]10-23-2024 [facility] Medical Records Department [address] [place] [address] History Physical Exam 02/17/24 0809 MR#: [id number] Acct: [id number] Name: SUSAN SENIOR Rep #: [id number] : 1935 89 From: Pavel Cartagena MD PCP: Dr. Olga Hurst MD Status:[facility] Location: [place] [address] HPI - General HPI Narrative SUSAN SENIOR, is a 89 F who presents for right endoscopic carpal tunnel release. no changes to h and p. Ok to proceed. right wrist marked. rab and post op instructions discussed. typically no narcotics after surgery. no further questions or concerns. will proceed. MR#: [id number] Acct: [id number] Name: SUSAN SENIOR Rep #: [id number] : 1935 Provider: Dr. Pavel Cartagena MD Age/Sex: 88/F [place] [facility] [place] Status: Signed Intake Vital Signs 12/22/2407:27 Height [...] 315 mg 2 tab PO BID Supplement Commercial Underwriter 09/16/22 01/18/24 History calcium-vitamin D3 6.25 mcg [...] physical activity do you participate in: none wolf/moravian: Zoroastrian seatbelt use: always HPI RIGHT HAND Details: This documentation accurately reflects the service provided and the decisions made by me, Dr. Pavel Cartagena MD 01/18/24 1304. Part of today???s visit was documented by [ ], acting as scribe. SUSAN NATEDUDLEY is a 88 year old F he (more content not included)...[facility]05-01-2024 Procedure [facility]04-07-2024 Discharge summary Author Chadwick Marin [facility] August 02, 2023 4:04pm Note Date/Time August 02, 2023 3:05 pm [facility] Medical Records Department [address] [place] [address] Emergency Department Summary 08/02/23 MR#: [id number] Acct: [id number] Name: THIERRYSUSAN ANNEMARIE Rep #:[id number] : [...] felt tight so she went to the [facility] clinic. She states the provider listened to [...] have a history of asthma or COPD. [facility] <ASHLEIGH Holden - Last Filed: 08/02/23 15:58> [facility] Medical History Arthritis Back pain Brain [...] unit) tablet 2 tab PO BID Supplement Commercial Underwriter 09/16/22 [History Last Taken Unknown] folic acid [...] physical activity do you participate in: none wolf/moravian: Zoroastrian seatbelt use: always ROS <Jyoti Glauthier, PA [...] (Auto) 59.5 Lymph % (Auto) 18.7 L [place] % (Auto) 16.8 H Eos % (Auto) [...] Marin, DO - Last Filed: 08/02/23 16:04> [facility] Narrative Medical decision making narrative: Patient has [...] condition. This patient was seen with a PA/GAMES MANAGER Individually assessed they patient including history and physical. I have reviewed everything on the chart that is availableand agree with the documentation provided by the PA/GAMES MANAGER including discussion about the assessment, treatment plan, [...] (Auto) 59.5 Lymph % (Auto) 18.7 L [place] % (Auto) 16.8 H Eos % (Auto) [...] 15:14 EDT Reading Location ID and State: [facility] / [place] , Service support , Discharge Plan Triage [...] your Primary Care Provider. Call [facility] ([phone]) or report to the closest Emergency Room. Call 911 if necessary. 08/02/23 1604 <Electronically signed by Chadwick Marin DO> Cosigner Signature (if applicable): 08/02/23 1559 <Electronically signed by Jyoti SOTELO> CC: Dr. Olga Hurst MD ~ Signed [facility] Work Phone: 1(283) 265-472210-05-2023 Miscellaneous Notes* Letter - Coordinator, Mammography - 01/29/2023 12:19 PM EDT January 30, 2023 PID: [id number] Susan Senior [address] [place] [address] Dear Ms. Senior, We are pleased to [...] report will be kept on file at [facility] as part of your permanent medical record and are available for your continuing care. Thank you for allowing us to help in meeting your health care needs. Sincerely, Dr. Bella Interpreting Radiologist [facility] (Normal over 40) documented in this encounterMiami [facility] Hospital03-27-2023 History of Present illness Narrative* Kamille Melendez MD - 07/21/2022 1:23 PM EDT Cloth [employer] Range Back Tender offered: godwin Senior is a 87 year [...] L3 SAB0 IAB0 Ectopic0 Multiple0 Live Births0 Environmental Lawyer History LMP: Postmenopausal Age at Menarche: Age at First : Age at Menopause: Environmental Lawyer History Comments: Sexual Activity: Not Currently; Male [...] external genitalia normal, normal Bartholin's glands, urethra, Beacon's glands, no vulvar lesions, no cervical lesions, [...] which included preparing to see the patient, [id number] patient care, completing clinical documentation, obtaining and/or reviewing separately obtained history, performing a medically appropriate examination, and counseling and educating the patient/family/caregiver Medical Decision Making: Medical Decision Making Level: 1 - N/A Kamille Lemus MD documented in this encounterMiami [facility]03-15-2023 History of Present illness Narrative* Kamille Melendez [...] no apparent distress Pelvic: Bartholin's, urethra and Beacon's glands were normal. The ring with support [...] which included preparing to see the patient, [id number]-[id number] patient care, completing clinical documentation, obtaining and/or reviewing separately obtained history, performing a medically appropriate examination, and counseling and educating the patient/family/caregiver. Kamille Lemus MD documented in this encounterMi[facility] Hospital02-01-2023 History of Present illness Narrative* Kamille Melendez MD - 05/28/2022 10:02 AM EST Cloth Bleaching Range Back Tender offered: Patient declines. Susan Senior is a 87 year old female who presents for pessary maintenance. Patient reports is doing well. Denies any vaginal bleeding, foul odor. Patient reports minimal itching on the outside of the vagina at times but nothing that is bothersome. Patient offers no other concerns today. 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 LMP: Postmenopausal Age at Menarche: Age at First : Age at Menopause: Environmental Lawyer History Comments: Sexual Activity: Not Currently; Male [...] which included preparing to see the patient, [id number] patient care, completing clinical documentation, obtaining and/or reviewing separately obtained history, and performing a medically appropriate examination counseling/educating patient. Medical Decision Making: Medical Decision Making Level: 1 - N/A Kamille Lemus MD documented in this encounterMiami [facility] Hospital10-31-2022 History of Present illness Narrative* Kamille Melendez MD - 02/24/2022 11:04 AM EDT Cloth Bleaching Range Back Tender offered: Patient declines. Susan Senior is a [...] L3 SAB0 IAB0 Ectopic0 Multiple0 Live Births0 Environmental Lawyer History LMP: Postmenopausal Age at Menarche: Age at First : Age at Menopause: Environmental Lawyer History Comments: Sexual Activity: Not Currently; Male [...] which included preparing to see the patient, [id number] patient care, completing clinical documentation, obtaining and/or reviewing separately obtained history, performing a medically appropriate examination, and counseling and educating the patient/family/caregiver Medical Decision Making: Medical Decision Making Level: 1 - N/A Kamille Lemus MD documented in this encounterMiami [facility] Hospital09-16-2022 Miscellaneous Notes* Letter - Mammography Coordinator - 01/10/2022 3:04 PM EDT January 10, 2022 PID: [id number] Susan Senior [address] [place] [address] Dear Ms. Senior, We are pleased to [...] report will be kept on file at [facility] as part of your permanent medical record and are available for your continuing care. Thank you for allowing us to help in meeting your health care needs. Sincerely, Dr. Anthony Interpreting Radiologist [facility] (Normal over 40) documented in this encounterMiami Valley Hospital09-16-2022 History of Present illness Narrative* RT Ashly(R) [...] 10, 2022 12:32 PM documented in this encounterMiami Valley Hospital08-31-2022 History of Present illness Narrative* Kamille Melendez MD - 12/25/2021 8:04 AM EDT Cloth Bleaching Range Back Tender offered: Patient declines. Susan Senior is a [...] L3 SAB0 IAB0 Ectopic0 Multiple0 Live Births0 Environmental Lawyer History LMP: Postmenopausal Age at Menarche: Age at First : Age at Menopause: Environmental Lawyer History Comments: Sexual Activity: Not Currently; Male [...] maintenance Z46.89 3. Vaginal irritation from pessary ([facility]) T83.89XA N89.8 4. Yeast dermatitis B37.2 5. Lotrisone and Diflcuan ordered. Medical Decision Making: Problems: Low: Acute, uncomplicated illness or injury Risk: Moderate: Drug management Medical Decision Making Level: 3 - Low Kamille Lemus MD documented in this encounterMiami [facility] Hospital07-20-2022 History of Present illness Narrative* Kamille Melendez MD - 11/13/2021 3:09 PM EDT Susan Senior is a 86 year old female who presents for pessary maintenance. Patient is doing well.Patient denies any vaginal bleeding, odors, itching or burning. She reports no dysuria. Patient offers no other concerns today. 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 LMP: Postmenopausal Age at Menarche: Age at First : Age at Menopause: Environmental Lawyer History Comments: Sexual Activity: Not Currently; Male [...] which included preparing to see the patient, [id number]-zojo patient care, completing clinical documentation, obtaining and/or reviewing separately obtained history, performing a medically appropriate examination and counseling and educating the patient/family/caregiver Kamille Lemus MD documented in this encounterMiami [facility] Hospital06-08-2022 History of Present illness Narrative* Kamille Melendez [...] L3 SAB0 IAB0 Ectopic0 Multiple0 Live Births0 Environmental Lawyer History LMP: Postmenopausal Age at Menarche: Age at First : Age at Menopause: Environmental Lawyer History Comments: Sexual Activity: Not Currently; Male [...] which included preparing to see the patient, rfrl-re-ctab patient care, completing clinical documentation, obtaining and/or reviewing separately obtained history, performing a medically appropriate examination and counseling and educating the patient/family/caregiver Kamille Lemus MD documented in this encounterMiami [facility] Hospital04-27-2022 History of Present illness Narrative* Kamille Melendez MD - 08/21/2021 8:37 AM EDT Susan Senior is a 86 year old female who presents for pessary maintenance. Patient reports is doing well. Denies any vaginal discharge, odors, vaginal bleeding. She reports occasional external irritation and itching. No difficulty with urination. 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 LMP: Postmenopausal Age at Menarche: Age at First : Age at Menopause: Environmental Lawyer History Comments: Sexual Activity: Not Currently; Male [...] which included preparing to see the patient, zlgz-lz-hjmc patient care, completing clinical documentation, obtaining and/or reviewing separately obtained history, performing a medically appropriate examination and counseling and educating the patient/family/caregiver Kamille Lemus MD documented in this encounterMiami Valley Hospital05-01-2017 Fall risk [facility] Work Phone: 1(980) 273-377712-01-2009 History of Past illness Narrative* Problem Noted [...] examination 11/28/2008 09/23/2011 Overview: Dr. Maxwell Qureshi, [facility] Pain in joint, lower leg 05/02/2005 008 Hypertension 09/23/2011 Preop exam for internal medicine 09/23/2011 documented as of this encounter (statuses as of 08/21/2021) [facility]12-01-2009 History of Past illness Narrative* Problem [...] examination 11/28/2008 09/23/2011 Overview: Dr. Maxwell Qureshi, [facility], [facility] Pain in joint, lower leg 05/02/2005 008 Hypertension 09/23/2011 Preop exam for internal medicine 09/23/2011 documented as of this encounter (statuses as of 10/02/2021) [facility]12-01-2009 History of Past illness Narrative* Problem [...] examination 11/28/2008 09/23/2011 Overview: Dr. Maxwell Qureshi, [facility], [facility] Pain in joint, lower leg 05/02/2005 008 Hypertension 09/23/2011 Preop exam for internal medicine 09/23/2011 documented as of this encounter (statuses as of 11/13/2021) [facility]12-01-[facility] History of Past illness Narrative* Problem [...] examination 11/28/2008 09/23/2011 Overview: Dr. Maxwell Qureshi, [facility], [facility] Pain in joint, lower leg 05/02/2005 008 Hypertension 09/23/2011 Preop exam for internal medicine 09/23/2011 documented as of this encounter (statuses as of 12/25/2021) [facility]12-[facility] History of Past illness Narrative* Problem [...] examination 11/28/2008 09/23/2011 Overview: Dr. Maxwell Qureshi, [facility], [facility] Pain in joint, lower leg 05/02/2005 008 Hypertension 09/23/2011 Preop exam for internal medicine 09/23/2011 documented as of this encounter (statuses as of 01/12/2022) [facility]12-01-[facility] History of Past illness Narrative* Problem [...] examination 11/28/2008 09/23/2011 Overview: Dr. Maxwell Qureshi, [facility], [facility] Pain in joint, lower leg 05/02/2005 008 Hypertension 09/23/2011 Preop exam for internal medicine 09/23/2011 documented as of this encounter (statuses as of 01/14/2022) [facility]12-01-2009 History of Past illness Narrative* Problem [...] examination 11/28/2008 09/23/2011 Overview: Dr. Maxwell Qureshi, [facility], [facility] [place] Pain in joint, lower leg 05/02/2005 008 Hypertension 09/23/2011 Preop exam for internal medicine 09/23/2011 documented as of this encounter (statuses as of 02/24/2022) [facility]12-01-2009 History of Past illness Narrative* Problem [...] examination 11/28/2008 09/23/2011 Overview: Dr. Maxwell Qureshi, [facility], [facility] [place] Pain in joint, lower leg 05/02/2005 008 Hypertension 09/23/2011 Preop exam for internal medicine 09/23/2011 documented as of this encounter (statuses as of 05/28/2022) [facility]12-[facility]-2009 History of Past illness Narrative* Problem [...] examination 11/28/2008 09/23/2011 Overview: Dr. Maxwell Qureshi, [facility], [facility] [place] Pain in joint, lower leg 05/02/2005 008 Hypertension 09/23/2011 Preop exam for internal medicine 09/23/2011 documented as of this encounter (statuses as of 07/09/2022) [facility]12-[facility]-2009 History of Past illness Narrative* Problem [...] examination 11/28/2008 09/23/2011 Overview: Dr. Maxwell Qureshi, [facility], [facility] [place] Pain in joint, lower leg 05/02/2005 008 Hypertension 09/23/2011 Preop exam for internal medicine 09/23/2011 documented as of this encounter (statuses as of 07/21/2022) [facility] History of Past illness Narrative* Problem [...] Overview: Dr. Maxwell Qureshi, [facility], [facility] Pain in joint, lower leg 05/02/2005 Hypertension 09/23/2011 Preop exam for internal medicine 09/23/2011 documented as of this encounter (statuses as of 01/31/2023) [facility] complaint+Reason for visit Narrative* Chief Complaint COVID 19 sob 1 y fu PREV PFM PT RULE OUT DVT Reason for Visit COVID-19 Essential hypertension Pure hypercholesterolemia [facility] Work Phone: Evaluation note* Diagnosis Pessary maintenance- Primary Fitting and adjustment of other device Female genital prolapse, unspecified type [facility] Diagnosis Onset Date Resolution Status Essential hypertension chron ic Pure hypercholesterolemia ch ronic [facility] Work Phone: Evaluation noteNo assessment information available [facility] Work Phone: Evaluation note* Diagnosis Female genital prolapse, unspecified type- Primary Pessary maintenance Fitting and adjustment of other device Vaginal irritation from pessary (HCC) Unspecified noninflammatory disorder of vagina Yeast dermatitis Candidiasis of skin and nails [facility] Diagnosis Pessary maintenance- Primary Fitting and adjustment of other device Female genital prolapse, unspecified type [facility] Diagnosis Female genital prolapse, unspecified type- Primary Pessary maintenance Fitting and adjustment of other device [facility] Diagnosis Onset Date Resolution Status Polyneuropathy acute 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 [facility] Work Phone: Evaluation note* Diagnosis Onset Date Resolution Status Polyneuropathy acute Trigeminal neuropathy chroni c [facility] Work Phone: Evaluation note* Diagnosis Vaginal inflammation from pessary, initial encounter (HCC)- Primary Female genital prolapse, unspecified type Pessary maintenance Fitting and adjustment of other device [facility] Diagnosis Female genital prolapse, unspecified type- Primary [facility] Diagnosis Onset Date Resolution Status Polyneuropathy acute Trigeminal neuropathy chroni c [facility] Work Phone: Evaluation note* Diagnosis Onset Date Resolution Status COVID-19 acute Essential hypertension chron ic Pure hypercholesterolemia ch ronic [facility] Work Phone: Evaluation note* Diagnosis Onset Date Resolution Status Sinusitis, acute acute Polyneuropathy chronic Trigeminal neuropathy chroni c [facility] Work Phone: Evaluation note* Diagnosis Onset Date Resolution Status Carpal tunnel syndrome, right acute Sinusitis, acute acute Polyneuropathy chronic Pneumonia acute [facility] Work Phone: Hospital Discharge instructions Additional Instructions I think you have a virus causing the cough. I prescribed an albuterol inhaler and doxycycline. You can stop taking the Z-Mathew. Please follow-up with your primary care doctor. [facility] Work Phone: Reason for referral (narrative)No reason for referral information [facility]WC[facility] Work Phone: Chief Complaint and Reason for [...] September 30, 2021 9 :58am Power of Edging Machine Feeder Yes September 30, 2021 9:58am Advance Directive Response Recorded Date/ Time Name of Medical Power of Edging Machine Feeder daughter, debr a September 30, 2021 9:58am Advance Directives Yes July 02 11:57pm Living Will Yes September 30, 2021 9 :58am Power of Edging Machine Feeder Yes September 30, 2021 9:58am Advance Directive Response Recorded Date/ Time Advance Directives Yes July 02 10:57pm Living Will Yes September 30, 2021 8 :58am Power of Edging Machine Feeder Yes September 30, 2021 8:58am Advance Directive Response Recorded Date/ Time Name of Medical Power of Edging Machine Feeder HELENA CARRILLO August 01, 2022 7:41pm Advance Directives Yes July 02 11:57pm Living Will Yes August 01, 2022 7:41pm Power of Edging Machine Feeder Yes August 01 7:41pm Advance Directive Response Recorded Date/ Time Advance Directives Yes July 02 10:57pm Living Will Yes August 01, 2022 6:41pm Power of Edging Machine Feeder Yes August 01 6:41pm Advance Directive Response Recorded Date/ Time Advance Directives Yes July 02 11:57pm Living Will No August 02, 2023 2:14pm Power of Edging Machine Feeder No August 01 2:14pm Advance Directive Response Recorded Date/ Time Living Will No October 06, 2023 11:39pm Do you have a Healthcare Power of Edging Machine Feeder? No October 06, 2023 11:39pm Advance Directives Yes July 02 11:57pm Summary Purpose Additional Source Comments Source Comments (unrecognize d section and content) In the event this informatio n is protected by the Federal Confidentiality of Alcohol and Drug Abuse Patient Records regulations: The Federal rules restrict any use of the information to criminally investigate or prosecute any alcohol or drug abuse patient.[facility] the event this information is protected by the Federal Confidentiality of Alcohol and Drug Abuse Patient Records regulations: The Federal rules restrict any use of the information to criminally investigate or prosecute any alcohol or drug abuse patient.[facility] the event this information is protected by the Federal Confidentiality of Alcohol and Drug Abuse Patient Records regulations: The Federal rules restrict any use of the information to criminally investigate or prosecute any alcohol or drug abuse patient.[facility] the event this information is protected by the Federal Confidentiality of Alcohol and Drug Abuse Patient Records regulations: The Federal rules restrict any use of the information to criminally investigate or prosecute any alcohol or drug abuse patient.[facility] the event this information is protected by the Federal Confidentiality of Alcohol and Drug Abuse Patient Records regulations: The Federal rules restrict any use of the information to criminally investigate or prosecute any alcohol or drug abuse patient.[facility] the event this information is protected by the Federal Confidentiality of Alcohol and Drug Abuse Patient Records regulations: The Federal rules restrict any use of the information to criminally investigate or prosecute any alcohol or drug abuse patient.[facility] the event this information is protected by the Federal Confidentiality of Alcohol and Drug Abuse Patient Records regulations: The Federal rules restrict any use of the information to criminally investigate or prosecute any alcohol or drug abuse patient.[facility] the event this information is protected by the Federal Confidentiality of Alcohol and Drug Abuse Patient Records regulations: The Federal rules restrict any use of the information to criminally investigate or prosecute any alcohol or drug abuse patient.[facility] the event this information is protected by the Federal Confidentiality of Alcohol and Drug Abuse Patient Records regulations: The Federal rules restrict any use of the information to criminally investigate or prosecute any alcohol or drug abuse patient.[facility] the event this information is protected by the Federal Confidentiality of Alcohol and Drug Abuse Patient Records regulations: The Federal rules restrict any use of the information to criminally investigate or prosecute any alcohol or drug abuse patient.[facility] the event this information is protected by the Federal Confidentiality of Alcohol and Drug Abuse Patient Records regulations: The Federal rules restrict any use of the information to criminally investigate or prosecute any alcohol or drug abuse patient.[facility] the event this information is protected by the Federal Confidentiality of Alcohol and Drug Abuse Patient Records regulations: The Federal rules restrict any use of the information to criminally investigate or prosecute any alcohol or drug abuse patient.[facility] Reason for Visit (unrecogniz ed section and content) Reason Comments Pessary Reason Comments Follow Up Pessary insertion Care Teams (unrecognized sec tion and content) Document Management Consultant Relationship Specialty Start Date End Date Olga Hurst PCP - General Family Practice 07/09/16 Document Management Consultant Relationship Specialty Start Date End Date Olga Hurst PCP - General Family Practice 07/09/16 Document Management Consultant Relationship Specialty Start Date End Date Olga Hurst PCP - General Family Practice 07/09/16 Document Management Consultant Relationship Specialty Start Date End Date Olga Hurst PCP - General Family Practice 07/09/16 Document Management Consultant Relationship Specialty Start Date End Date Olga [...] Status: Inactive Member Role Status Dates Dr. lOga Hurst MD Primary Care Provider Active Dr. [...] Dr. Jb Joiner MD Attending Provider Active Document Management Consultant Relationship Specialty Start Date End Date Olga Hurst PCP - General Family Medicine 07/09/16 Document Management Consultant Relationship Specialty Start Date End Date Olga [...] Inactive Member Role Status Dates Dr. Olga uHrst MD Primary Care Provider Active Dr. Fred [...] MD Attending Provider, Referring Provide r Active Document Management Consultant Relationship Specialty Start Date End Date Olga [...] Care Provider Active Dr. Jb Joiner MD Referring Provider, Other Pro vider Active Dr. Kimani Flowers MD Attending Provider Active Team Status: Inactive Member Role Status Dates Dr. Olga Hurst MD Primary Care Provider Active Dr. Jb Joiner MD Attending Provider, Referring Provider Active Document Management Consultant Relationship Specialty Start Date End Date Olga [...] Inactive Member Role Status Dates Dr. Olga Husrt MD Primary Care Provider Active Start: June [...] 13, 2024 End: July 13, 2024 Dr. Francine Pierce MD Attending Provider Active Start: July [...] section and content) DATE CREATED AUTHOR 04/17/2024 [facility] DATE CREATED AUTHOR AUTHOR'S ORGANIZ ATION 07/16/2024 [facility] FOR RECORDS PERTAINING TO PATIENTS WHO [...] BE BASED ON THE PRIMARY CLINICAL RECORDS. [facility] [employer] [facility]. provides no warranty or guarantee of the accuracy or completeness of information in this document.
[2024-10-10] MEDS: 0.9% Saline Lock 10 ML Syringe IV (04:26)
[2024-10-10] MEDS: Acetaminophen 500 MG Tablet 1000 MG PO ×3 (04:27→21:29)
[2024-10-10] MEDS: Gabapentin 100 MG Capsule PO ×3 (04:27→21:28)
[2024-10-10] MEDS: Tolterodine Tartrate 2 MG CAP.SA PO (09:10)
[2024-10-10] MEDS: Calcium Carb/Vitamin D 1 TABLET Tablet PO ×2 (09:10→21:29)
[2024-10-10] MEDS: Lisinopril 10 MG Tablet PO ×2 (09:10→21:30)
[2024-10-10] MEDS: Senna/Docusate Sodium 1 Tablet 2 TABLET PO (09:10)
[2024-10-10] MEDS: Enoxaparin 40 MG/0.4 ML Syringe SC (09:10)
[2024-10-10] MEDS: Nystatin Powder 15gm Bottle 1 APPLIC TOPICAL ×2 (09:11→21:28)
[2024-10-10] MEDS: Menthol/Lanolin/Calamine/Znox 113 GM Tube 1 APPLIC TOPICAL ×2 (09:11→21:28)
[2024-10-10] MEDS: oxyCODONE 5 MG Tablet PO (09:13)
--- NOTE | 2024-10-10 10:31 | CASEMGMT ---
Discharge Planning A list of?SNF providers including quality and resource use data and consistent with the patient's preferred geographic region, medical needs, and insurance network was created in [employer] Guide.? This list was provided to the SW. Jeanine Roy Discharge Planning Asst.
--- NOTE | 2024-10-10 14:27 | CASEMGMT ---
Noted therapy kathie. GEMA CM into pt room, pt lying in bed in no distress with sister at bedside. Pt agreeable to discussion with sister present. Pt states she lives alone and is typically indep. She does not drive. Pt dtr takes her to get groceries. Pt uses a rollator and states she has for the last 8 years. Pt states she realizes she needs further therapy prior to returning home and thinks she wants to go to [facility]. She would like to speak to her dtrs about this when they come in. Updated SW. Pt denies further needs at this time.
--- NOTE | 2024-10-10 14:38 | CASEMGMT ---
DUTTA Met with patient to complete DUTTA form. DUTTA form and its content were verbally explained and patient's questions were answered to the best of my ability.? Patient voiced understanding and signed DUTTA form.? Patient provided a copy of signed DUTTA form and original placed in patient's chart.? Patient had no further questions. Jeanine Roy, Discharge Planning Asst
--- NOTE | 2024-10-10 15:21 | CASEMGMT ---
Social Work- SW met with pt to discuss discharge planning. SW introduced self and role; pt agreeable to meeting. Pt reports that she would like [facility] or [facility] and agreeable to referrals sent to both facilities. A list of SNF providers including quality and resource use data and consistent with the patient?s preferred geographic region, medical needs, and insurance network were [facility] for pt to review if needed. [facility] notified of referral request. MELINDA sent referral to [facility] admissions. MELINDA remains available to follow. MELANY Barnard
--- NOTE | 2024-10-10 15:22 | CASEMGMT ---
Addendum entered by Jeainne Roy 10/11/24 08:52: Pt has chosen to discharge to [facility]CU. [facility] updated. Jeanine Roy DC Planning Asst. Addendum entered by Jeanine Roy 10/10/24 16:28: [facility] has accepted. updated. Jeanine Roy DC Planning Asst. Original Note: Discharge Planning Referral sent to [facility]. Jeanine Roy DC Planning Asst.
[2024-10-10] MEDS: Atorvastatin Calcium 20 MG Tablet PO (21:29)
[2024-10-11 02:50] VITALS: BP 120/65; PULSE 69; RESP 16; TEMP 36.6; O2SAT 96
[2024-10-11] MEDS: Gabapentin 100 MG Capsule PO (06:00)
[2024-10-11] MEDS: Acetaminophen 500 MG Tablet 1000 MG PO (06:00)
[2024-10-11 07:27] VITALS: BP 134/53; PULSE 69; RESP 14; TEMP 36.4; O2SAT 97
[2024-10-11] MEDS: Enoxaparin 40 MG/0.4 ML Syringe SC (07:30)
[2024-10-11] MEDS: Vibegron 75 MG TABLET PO (07:30)
[2024-10-11] MEDS: Calcium Carb/Vitamin D 1 TABLET Tablet PO (07:30)
[2024-10-11] MEDS: Tolterodine Tartrate 2 MG CAP.SA PO (07:31)
[2024-10-11] MEDS: Lisinopril 10 MG Tablet PO (07:31)
[2024-10-11] MEDS: Menthol/Lanolin/Calamine/Znox 113 GM Tube 1 APPLIC TOPICAL (07:31)
[2024-10-11] MEDS: Nystatin Powder 15gm Bottle 1 APPLIC TOPICAL (07:31)
[2024-10-11] MEDS: oxyCODONE 5 MG Tablet PO (07:35)
--- NOTE | 2024-10-11 09:30 | CASEMGMT ---
Social Work- SW updated pt that [facility] and [facility] accepted pt referrals. Pt selected TCU. TCU has precert. Hospitalist updated. SW remains available to follow. MELANY Barnard
--- NOTE | 2024-10-11 09:32 | TREXTCAR_ITS ---
Diet Diet Order/Speech Therapy: INPATIENT Hospital Diet / Speech Therapy Order(s) 10/10/24 04:02 Diet: Regular - General Food consistency:: Regular Liquid Consistency:: Regular/Thin Routine Orders/Code Status Routine Lab Work: CBC and BMP Code Status: DNRCC-A DC O2, CPAP, BIPAP needs Home O2 Discharge instructions: No Therapies Physical Therapy: Eval and Treat Occupational Therapy: Eval and Treat Problem/Diagnosis (1) Contusion of elbow, left: Status: Acute Code(s): S50.02XA - Contusion of left elbow, initial encounter (2) Fall: Status: Acute Code(s): W19.XXXA - Unspecified fall, initial encounter (3) Back pain: Status: Acute Code(s): M54.9 - Dorsalgia, unspecified (4) Difficulty in walking: Status: Acute Code(s): R26.2 - Difficulty in walking, not elsewhere classified Allergies/Procedures Done in Hospital Allergies amoxicillin (Amoxicillin) Allergy (Severe, Verified 10/09/24 20:07) Swelling cyclobenzaprine HCl (From Flexeril) Allergy (Severe, Verified 10/09/24 20:07) Swelling diclofenac sodium (From Voltaren) Allergy (Severe, Verified 10/09/24 20:07) Swelling dicyclomine Allergy (Severe, Verified 10/09/24 20:07) Swelling ketoprofen (From Oruvail) Allergy (Severe, Verified 10/09/24 20:07) Swelling sulfabenzamide Allergy (Severe, Verified 10/09/24 20:07) Anaphylaxis tramadol Allergy (Unknown, Verified 10/09/24 20:07) Unknown hydroxychloroquine (From Plaquenil) Allergy (Verified 10/09/24 20:07) Hives hydroxyzine HCl (From Atarax) Allergy (Verified 10/09/24 20:07) Swelling prednisone Allergy (Verified 10/09/24 20:07) Hives pseudoephedrine HCl (From Sudafed) Allergy (Verified 10/09/24 20:07) Other cephalexin Adverse Reaction (Severe, Verified 10/09/24 20:07) Rash clindamycin Adverse Reaction (Severe, Verified 10/09/24 20:07) Hives codeine Adverse Reaction (Severe, Verified 10/09/24 20:07) Upset Stomach Procedures: None Type of Care/Length of Stay Estimated LOS: Convalescent Care Less Than 30 days Type of Care Needed: Skilled Rehab Potential: Good Prognosis: Good Additional Orders/Day of Discharge Day of Discharge: 10/11/24 Discharge Plan Admission Admit Date/Time: 10/10/24 02:56 Attending Provider: Brooks Gonzalez Primary Care Provider: Rubin Rodriguez Consulting Providers: Priyanka Cobos Instructions Patient Instructions: ED Back Sprain/Strain, ED Coccyx or Sacrum Contusion, ED Contusion, Elbow Discharge Orders/Prescriptions Prescriptions: New bisacodyl 5 mg Tablet,Delayed Release (Dr/Ec) 5 mg PO DAILY PRN PRN (Reason: Constipation) Qty: 0 0RF oxycodone 5 mg Tablet 5 mg PO Q4H PRN PRN (Reason: Pain Score 4-10) Qty: 0 0RF Continued atorvastatin 20 mg tablet 20 mg PO DAILY acetaminophen [Tylenol Arthritis Pain] 650 mg tablet extended release 650 mg PO Q8H ferrous sulfate [FeroSul] 325 mg (65 mg iron) tablet 325 mg PO QDAY PRN (Reason: supplement) gabapentin 100 mg capsule 100 mg PO TID Qty: 90 8RF calcium citrate-vitamin D3 315 mg-6.25 mcg (250 unit) tablet 1 tab PO BID Patient Comments: vitamin albuterol sulfate [Ventolin HFA] 90 mcg/actuation HFA aerosol inhaler 2 puff inhalation Q4H PRN PRN (Reason: Wheezing) 30 Days Qty: 6.7 0RF mirabegron [Myrbetriq] 25 mg tablet extended release 24 hr 25 mg PO BID lisinopril 10 mg tablet 10 mg PO BID Qty: 180 3RF Referrals / Follow Up: Rubin Rodriguez MD [Primary Care Provider] - 1 Week if not improving Disposition Disposition (needs filled in before D/C Order can be placed): [facility]
--- NOTE | 2024-10-11 09:53 | PHA.DC_ITS ---
Pharmacy IN Med Reconciliation Pharmacy Service has performed discharge medication reconciliation for this patient. The patient's discharge medication list was reviewed for discrepancies and discrepancies were resolved. Medications at Discharge Home Medications calcium 315 mg (as citrate)-vitamin D3 6.25 mcg (250 unit) tablet 1 tab PO BID Supplement Agriculture Intern 09/16/22 albuterol sulfate 90 mcg/actuation aerosol inhaler (Ventolin HFA) 2 puff inhalation Q4H PRN PRN Wheezing 30 days #6.7 grams 08/02/23 acetaminophen 650 mg tablet,extended release (Tylenol Arthritis Pain) 650 mg PO Q8H 10/27/23 atorvastatin 20 mg tablet 20 mg PO DAILY 10/27/23 gabapentin 100 mg capsule 100 mg PO TID #90 caps 06/16/24 ferrous sulfate 325 mg (65 mg iron) tablet (FeroSul) 325 mg PO QDAY PRN supplement 07/13/24 lisinopril 10 mg tablet 10 mg PO BID blood pressure #180 tabs 10/04/24 mirabegron 25 mg tablet,extended release 24 hr (Myrbetriq) 25 mg PO BID overactive bladder 10/10/24 bisacodyl 5 mg tablet,delayed release 5 mg PO DAILY PRN PRN Constipation #0 tabs 10/11/24 oxycodone 5 mg tablet 5 mg PO Q4H PRN PRN Pain Score 4-10 #0 tabs 10/11/24
--- NOTE | 2024-10-11 12:18 | NURSING ---
report called to [facility]. pt will go to room 16
--- NOTE | 2024-10-11 12:45 | CASEMGMT ---
Social Work Precert has been obtained.? Physician updated and pt is ready for discharge today.?SW met with pt and they are agreeable to discharge plan as stated above.? Bedside nurse notified of discharge. Disposition:TCU, skilled level of care MELANY Barnard
--- NOTE | 2024-10-11 13:27 | DS.PCM_ITS ---
Providers Date of Admission: 10/10/24 Primary Care Physician: Dr. Rubin Rodriguez MD Reason For Visit: FALL WITH INABILITY TO AMBULATE Diagnosis Discharge Diagnosis (1) Contusion of elbow, left: Status: Acute Code(s): S50.02XA - Contusion of left elbow, initial encounter (2) Fall: Status: Acute Code(s): W19.XXXA - Unspecified fall, initial encounter (3) Back pain: Status: Acute Code(s): M54.9 - Dorsalgia, unspecified (4) Difficulty in walking: Status: Acute Code(s): R26.2 - Difficulty in walking, not elsewhere classified Medications at Discharge Home Medications calcium 315 mg (as citrate)-vitamin D3 6.25 mcg (250 unit) tablet 1 tab PO BID Supplement [employer] 09/16/22 albuterol sulfate 90 mcg/actuation aerosol inhaler (Ventolin HFA) 2 puff inhalation Q4H PRN PRN Wheezing 30 days #6.7 grams 08/02/23 acetaminophen 650 mg tablet,extended release (Tylenol Arthritis Pain) 650 mg PO Q8H 10/27/23 atorvastatin 20 mg tablet 20 mg PO DAILY 10/27/23 gabapentin 100 mg capsule 100 mg PO TID #90 caps 06/16/24 ferrous sulfate 325 mg (65 mg iron) tablet (FeroSul) 325 mg PO QDAY PRN supplement 07/13/24 lisinopril 10 mg tablet 10 mg PO BID blood pressure #180 tabs 10/04/24 mirabegron 25 mg tablet,extended release 24 hr (Myrbetriq) 25 mg PO BID overactive bladder 10/10/24 bisacodyl 5 mg tablet,delayed release 5 mg PO DAILY PRN PRN Constipation #0 tabs 10/11/24 oxycodone 5 mg tablet 5 mg PO Q4H PRN PRN Pain Score 4-10 #0 tabs 10/11/24 Hospital Course Operations None Procedures None Summary of Care Provided Minutes Spent on Discharge: 31 Hospital Course: Per HPI: BA GUADARRAMA, is a 89 F who presented to the emergency department [facility] on 10/09/2024 with a chief complaint of mechanical fall. Patient states that she had placed her wheeled walker behind her and was taking her shoes off and lost her balance and fell backwards landing in a sitting position and then coming back down on her left elbow. On presentation, she complained about pain in her low back and tailbone as well as the left posterior hip region. She also had some mild elbow pain. She did not strike her head. She is having no upper back pain. She does have chronic pain as well as rheumatoid arthritis and follows with Dr. Jones. In fact, she has an appointment to see him tomorrow. She was able to get up from the position she was in and ambulate with assistance of family and they brought her to the emergency department. She had extensive imaging none of which showed any acute fracture however when the emergency department physician tried to get her up to mobilize her she had significant difficulty and did poorly ambulating due to pain in her back and pelvis. Vital signs on presentation showed a temperature of 97.8, heart rate 72, respiratory 20, blood pressure was 144/61 and pulse ox is 100% on room air. CBC shows chronic thrombocytopenia which is stable but is otherwise unremarkable. Chemistry panel was pending at the time of admission. CT of the lumbar spine shows straightened lumbar lordosis due to muscle spasm, first-degree anterior listhesis at L4 which is stable, stable L3 vertebral body compression fracture with previous kyphoplasty and significant degenerative disc disease as well as lumbar spondylosis with facet arthropathy at multiple levels. CT of the pelvis shows no obvious fracture or dislocation, mild bilateral hip osteoarthritic changes and degenerative changes of the sacroiliac joint. X-ray of the elbow is unremarkable. Initial plan was try to get her home however she had difficulty ambulating therefore require observation with anticipated less than 2 midnight hospitalization for pain management and therapy evaluation. Hospital Course: 1. Acute back pain and difficulty ambulating after mechanical fall in the setting of chronic back pain?89-year-old female who fell backwards while trying to take her shoes off and exacerbated her chronic back pain. She was having significant pain in the emergency room and would struggle to even get out of bed. She was admitted to the hospital for pain management and for PT/OT. She was evaluated and they felt that she would be best served with physical therapy, case management was consulted who was able to get her her excepted to the transitional care unit. She did have imaging studies on admission that did not demonstrate a fracture, her CT scan of her lumbar spine showed her chronic findings with a first-degree anterolisthesis of L4 a stable L3 vertebral body compression fracture that is been previously treated in the lumbar spondylosis with multilevel facet arthropathy and diffuse posterior disc bulges. I discussed with her today the plan for discharge to the transitional. She is understanding of the risks and benefits of going to the care home and would like to go today. 2. Essential hypertension, hyperlipidemia, urinary incontinence, rheumatoid arthritis are all chronic medical conditions which complicate her care. Her home medications were continued where appropriate Physical Exam Narrative General: Alert, Oriented x3, Cooperative, No apparent distress HEENT: Atraumatic, PERRLA, EOMI, Normocephalic Oral: Moist Mucosa Neck: Supple, No JVD Lungs: Diminished, Normal air movement, No rhonchi, No wheeze, No rales Cardiovascular: Regular rate, Regular Rhythm, Normal S1, Normal S2, ANTHONY Abdomen: Soft, Non Tender, Non-Distended, No Hepato-splenomegaly Extremities: No edema, Capillary Refill Less than 3 Seconds Skin: No rashes, No breakdown Musculoskeletal: No Tenderness to Palpation of Joints or Extremities Neurological: No focal neurological deficits, Motor Exam 5/5 strength throughout, Sensory exam intact to light touch and pain Psych/Mental Status: Normal Affect, Appropriate Weight / BMI Weight Weight: 162 lb 7.691 oz Body Mass Index (BMI) 30.7 ABG / Lab / Microbiology Data 10/10/24 02:00 10/10/24 02:00 D/C Instructions DC O2, CPAP, BIPAP Needs Home O2 Discharge instructions: No Meaningful Use Info Meaningful Use Meaningful Use Diagnoses (Choose all that apply): None applicable Ischemic Stroke Statin Dosing Therapy Reference: STATIN DOSE THERAPY REFERENCE: * Patients > 75 years receive moderate or high dose statin therapy. * Patients 75 years or YOUNGER should receive HIGH intensity statin dose unless contraindicated. You will be required to document reason for non-treatment if statin daily dose does not meet guidelines. HIGH DOSE STATIN THERAPY DAILY Atorvastatin > than or = to 40 mg Rosuvastatin > than or = to 20 mg Amlodipine + Atorvastatin > than or = to 2.5/40 mg Ezetimibe + Simvastatin 10/80 mg Simvastatin 80mg Discharge Plan Admission Admit Date/Time: 10/10/24 02:56 Attending Provider: Brooks Gonzalez Primary Care Provider: Rubin Rodriguez Consulting Providers: Priyanka Cobos Instructions Patient Instructions: ED Back Sprain/Strain, ED Coccyx or Sacrum Contusion, ED Contusion, Elbow Discharge Orders/Prescriptions Prescriptions: New bisacodyl 5 mg Tablet,Delayed Release (Dr/Ec) 5 mg PO DAILY PRN PRN (Reason: Constipation) Qty: 0 0RF oxycodone 5 mg Tablet 5 mg PO Q4H PRN PRN (Reason: Pain Score 4-10) Qty: 0 0RF Continued atorvastatin 20 mg tablet 20 mg PO DAILY acetaminophen [Tylenol Arthritis Pain] 650 mg tablet extended release 650 mg PO Q8H ferrous sulfate [FeroSul] 325 mg (65 mg iron) tablet 325 mg PO QDAY PRN (Reason: supplement) gabapentin 100 mg capsule 100 mg PO TID Qty: 90 8RF calcium citrate-vitamin D3 315 mg-6.25 mcg (250 unit) tablet 1 tab PO BID Patient Comments: vitamin albuterol sulfate [Ventolin HFA] 90 mcg/actuation HFA aerosol inhaler 2 puff inhalation Q4H PRN PRN (Reason: Wheezing) 30 Days Qty: 6.7 0RF mirabegron [Myrbetriq] 25 mg tablet extended release 24 hr 25 mg PO BID lisinopril 10 mg tablet 10 mg PO BID Qty: 180 3RF Referrals / Follow Up: Rubin Rodriguez MD [Primary Care Provider] - 1 Week if not improving Disposition Disposition (needs filled in before D/C Order can be placed): [facility] Facility Charges/Coding Visit Charges Inpatient E&M: 51942 Disch Hosp >30min
== END 2024-10-11 13:10 | disposition skilled nursing facility (03) ==
LOC: ED 10-10 01:54 → MS3 10-10 03:22
PROVIDERS: Admitting Provider Internal Medicine; Emergency Provider Emergency Medicine; PCP Family Medicine; Visit Provider Family Medicine
DX: G89.29 Other chronic pain (principal); M06.9 Rheumatoid arthritis, unspecified; S50.02XA Contusion of left elbow, initial encounter; M43.16 Spondylolisthesis, lumbar region; R32 Unspecified urinary incontinence; W19.XXXA Unspecified fall, initial encounter; R26.2 Difficulty in walking, not elsewhere classified; M47.816 Spondylosis without myelopathy or radiculopathy, lumbar region; E78.00 Pure hypercholesterolemia, unspecified; I10 Essential (primary) hypertension; D69.6 Thrombocytopenia, unspecified; Z79.899 Other long term (current) drug therapy; E66.9 Obesity, unspecified; Z68.31 Body mass index [BMI] 31.0-31.9, adult
CPT/HCPCS: 72131; 72192; 73080; 80048; 85025; 94668; 96372; 97162; 97166; 99221; 99284; A4216; G0378

== ENCOUNTER 2024-10-11 13:20 | Inpatient (IN) | payer MEDICARE, SELFPAY ==
[2024-10-11 13:41] VITALS: BP 109/51; PULSE 64; PULSE 67; RESP 16; RESP 18; TEMP 36.7; O2SAT 97
[2024-10-11 14:05] VITALS: BMI 31.8
[2024-10-11] MEDS: Gabapentin 100 MG Capsule PO ×2 (15:16→21:37)
[2024-10-11] MEDS: Acetaminophen 325 MG Tablet 650 MG PO ×2 (15:16→21:40)
--- NOTE | 2024-10-11 21:03 | HP.PCM_ITS ---
HPI - General General Date of Admission: 10/11/24 Date of Service: 10/11/24 Chief Complaint: Here for rehabilitation. HPI Narrative BA GUADARRAMA, is a 89 Female who presents with followin10/09/2024 [facility] ED with fall. Fell backwards, landing in sitting position, coming down on left elbow. Pain low back, tailbone, left posterior hip region, pain left elbow. No head injury, able to get up and walk with assistance. X-ray left elbow negative. CT L spine, pelvis negative for fracture. Unable to walk. 10/10/2024 Admit [facility]. Tylenol, Oxycodone, bowel regimen, antiemetics, PT/OT/CM. Low back pain after fall. Continue home medications. 10/11/2024 Admit to TCU with debility, here for rehabilitation, strengthening, prior to discharge home alone. 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 09/16/22 10/11/24 07:30 History citrate)-vitamin D3 6.25 mcg (250 unit) tablet albuterol sulfate 90 mcg/actuation 2 puff inhalation Q 4H PRN PRN 08/02/23 Unknown Rx aerosol inhaler (Ventolin HFA) Wheezing 30 days #6.7 g alberto acetaminophen 650 mg 650 mg PO Q8H pain 10/27/23 10/10/24 History tablet,extended release (Tylenol Arthritis Pain) atorvastatin 20 mg tablet 20 mg PO DAILY blood pressur e 10/27/23 10/10/24 21:30 History gabapentin 100 mg capsule 100 mg PO TID nerve pain #90 caps 06/16/24 10/11/24 06:00 Rx ferrous sulfate 325 mg (65 mg 325 mg PO QDAY PRN suppl ement 07/13/24 04/27/24 History iron) tablet (FeroSul) lisinopril 10 mg tablet 10 mg PO BID blood pressure #180 10/04/24 10/11/24 07:30 Rx tabs mirabegron 25 mg tablet,extended 25 mg PO BID overacti ve bladder 10/10/24 10/11/24 07:30 History release 24 hr (Myrbetriq) bisacodyl 5 mg tablet,delayed 5 mg PO DAILY PRN PRN Co nstipation 10/11/24 Unknown Rx release #0 tabs oxycodone 5 mg tablet 5 mg PO Q4H PRN PRN Pain Sco re 10/11/24 10/11/24 07:30 Rx 4-10 #0 tabs Allergy/AdvReac Type Severity Reaction Status Date / Time amoxicillin (Amoxicillin) Allergy Severe Swelling Verified 10/09/24 20:07 cyclobenzaprine HCl (From Allergy Severe Swelling Verified 10/09/24 20:07 Flexeril) diclofenac sodium (From Allergy Severe Swelling Verified 10/09/24 20:07 Voltaren) dicyclomine Allergy Severe Swelling Verified 10/09/24 20:07 ketoprofen (From Oruvail) Allergy Severe Swelling Verified 10/09/24 20:07 sulfabenzamide Allergy Severe Anaphylaxis Verified 10/09/24 20:07 tramadol Allergy Unknown Unknown Verified 10/09/24 20:07 hydroxychloroquine (From Allergy Hives Verified 10/09/24 20:07 Plaquenil) hydroxyzine HCl (From Atarax) Allergy Swelling Verified 10/09/24 20:07 prednisone Allergy Hives Verified 10/09/24 20:07 pseudoephedrine HCl (From Allergy Other Verified 10/09/24 20:07 Sudafed) cephalexin AdvReac Severe Rash Verified 10/09/24 20:07 clindamycin AdvReac Severe Hives Verified 10/09/24 20:07 codeine AdvReac Severe Upset Verified 10/09/24 20:07 Stomach Family History Mother Heart disease Father Heart disease Other Cancer Surgical History History of back surgery History of breast biopsy History of appendectomy History of knee replacement procedure of left knee History of brain surgery Social History number of children: 3 Smoking Status: Never smoker second hand exposure: No alcohol intake: never substance use type: does not use what type of physical activity do you participate in: none wolf/pentecostalism: [employer] seatbelt use: always ROS Constitutional Constitutional: Reports weakness; Denies chills, fever(s) or weight gain ENT HEENT: Denies headache(s), nasal congestion or nasal discharge Cardiovascular Cardiovascular: Denies chest pain or palpitations Respiratory/Chest Respiratory/Chest: Denies cough, excessive phlegm production or shortness of breath with exertion Gastrointestinal Gastrointestinal: Denies abdominal pain, nausea or vomiting Genitourinary Genitourinary: Denies dysuria Musculoskeletal Musculoskeletal: Denies joint pain or joint swelling Integumentary Integumentary: Denies rash or wounds Neurologic Neurologic: Denies focal weakness, numbness or tingling Psychiatric Psychiatric: Denies anxiety, auditory hallucinations, depression, homicidal ideation or suicidal ideation Vital Signs Vital Signs Vital Signs: 10/11/24 13:41 10/11/24 13:41 Temperature 98.1 F Temperature Source Temporal Pulse Rate 67 64 Pulse Rhythm Regular Respiratory Rate 16 18 Respiratory Effort Normal Blood Pressure 109/51 L Blood Pressure Mean 70 Blood Pressure Source Monitor Blood Pressure Position Semi-Fowlers Blood Pressure Location Right Arm Pulse Ox 97 Oxygen Delivery Method Room Air Room Air Weight Weight: 76.294 kg Body Mass Index (BMI) 31.8 Physical Exam Const alert General Appearance: cooperative HEENT normocephalic Eyes PERRL and EOMs intact bilaterally Neck supple, no JVD and no carotid bruits Resp normal respiratory effort, normal air movement and clear to auscultation bilaterally Cardio regular rate and regular rhythm GI normal to inspection, nondistended, normoactive bowel sounds, non-tender and non-distended Extremity normal capillary refill General Extremity: Negative for edema Skin no rashes or lesions noted General Skin Exam: no breakdown Psych affect normal Appearance: appropriate Assessment & Plan Assessment/Plan (1) Debility: (2) Low back pain: (3) Rheumatoid arthritis: (4) Hyperlipidemia: (5) Neuropathic pain: (6) Iron deficiency anemia: (7) Wheezing: (8) Tinea corporis: (9) Overactive bladder: (10) Essential (primary) hypertension: PLAN: Plan 89 year old female with below past medical history hospitalized for low back pain after fall, no fractures on imaging, admitted to TCU with debility, here for rehabilitation, strengthening, prior to discharge home alone. * Debility - PT/OT. * Pain - Tylenol 650mg q8, Oxycodone 5mg q4 prn. * Bowel - Miralax 17gm daily, senna/coalce 1 tablet bid, Magnesium citrate 300mL daily prn, Dulcolax 5mg daily prn. * Adult immunization - Administer pneumonia vaccine, covid vaccine, flu vaccine as appropriate. * DVT prophylaxis - Hold, monitor. * Wheezing - Albuterol 2.5mg neb q4 prn. * Indigestion - MOM 30mL daily prn. * Hyperlipidemia - Atorvastatin 20mg qhs. * Calcium deficiency - Calcium D 1 tablet bid. * Iron deficiency anemia - Ferrous sulfate 325mg daily prn. * Neuropathic pain - Gabapentin 100mg tid. * Hypertension - Lisinopril 10mg bid. * Overactive bladder - Gemtesa 75mge daily.
[2024-10-11] MEDS: Senna/Docusate Sodium 1 Tablet PO (21:38)
[2024-10-11] MEDS: Calcium Carb/Vitamin D 1 TABLET Tablet PO (21:38)
[2024-10-11] MEDS: oxyCODONE 5 MG Tablet PO (21:43)
[2024-10-11] MEDS: Lisinopril 10 MG Tablet PO (21:43)
[2024-10-12 05:40] LABS: Absolute Lymphocyte Count 1.63 X10^3/uL (0.83-4.51); Absolute Neutrophil Count 2.2 X10^3/uL (2.0-7.7); Basophil# 0.03 X10^3/uL; Basophil% 0.6 % (0-1); Eosinophil# 0.19 X10^3/uL; Eosinophils% 3.9 % (0-5); Hemoglobin 11.1 g/dL (12.0-15.0); Lymphocyte # 1.63 X10^3/ul (0.83-4.51); Lymphocyte % 33.4 % (19-41); Mean Corp Hgb Conc 32.6 g/dL (32-36); Mean Corpuscular Hgb 30.1 pg (27.0-32.0); Mean Corpuscular Volume 92.1 fL (81-99); Mean Platelet Vol. 10.1 fl (6.2-12.0); Monocyte# 0.83 X10^3/uL; NRBC Flagged by Analyzer 0 % (0-5); Neutrophil # 2.19 X10^3/uL (2.7-7.7); Neutrophil % 44.9 % (47-70); Platelet Count 141 K/mm3 (150-450); RBC Distribution Width CV 13.1 % (11.6-14.6); Red Blood Count 3.69 M/mm3 (4.2-5.4); White Blood Count 4.9 K/mm3 (4.4-11.0)
[2024-10-12] MEDS: Acetaminophen 325 MG Tablet 650 MG PO ×3 (05:53→21:49)
[2024-10-12] MEDS: oxyCODONE 5 MG Tablet PO ×2 (05:53→21:47)
[2024-10-12] MEDS: Gabapentin 100 MG Capsule PO ×3 (05:53→21:52)
[2024-10-12] MEDS: 0.9% Saline Lock 10 ML Syringe IV ×2 (05:56→16:47)
[2024-10-12 06:06] LABS: Anion Gap 9 (5-15); BUN 29 mg/dL (4-19); BUN/Creat Ratio 40.7 RATIO (10-20); Calcium,Total 9.2 mg/dL (7.6-11.0); Carbon Dioxide 21.9 mmol/L (21.0-32.0); Chloride 108 mmol/L (98-108); EST Glomerular Filtration Rate 83 (>60); Glucose 98 mg/dL (70-99); Potassium 4.1 mmol/L (3.3-5.1); Sodium Level 138 mmol/L (133-145)
[2024-10-12] MEDS: Vibegron 75 MG TABLET PO (08:59)
[2024-10-12] MEDS: Polyethylene Glycol 3350 17 GM PACKET PO (09:00)
[2024-10-12] MEDS: Atorvastatin Calcium 20 MG Tablet PO (09:00)
[2024-10-12] MEDS: Calcium Carb/Vitamin D 1 TABLET Tablet PO ×2 (09:00→21:48)
[2024-10-12] MEDS: Lisinopril 10 MG Tablet PO ×2 (09:00→21:49)
[2024-10-12 09:03] VITALS: BP 107/43; PULSE 64; RESP 18; TEMP 36.3; O2SAT 98
[2024-10-12] MEDS: Tuberculin,Purif.prot.deriv. 50 TU/ML Vial 0.1 ML ID (12:22)
--- NOTE | 2024-10-12 13:27 | PCM.PN.DRR ---
Documented by User: Sheela Bass 10/12/24 15:13 TCU RX Drug Regimen Review Subjective/Objective Subjective/Objective Subjective: TCU Admission. 89 YOF presented to the ER with a fall. Hospitalized for low back pain after fall, no fractures on imaging. Admitted to TCU with debility for strengthening and rehabilitation. Objective: Allergies amoxicillin (Amoxicillin) Allergy (Severe, Verified 10/09/24 20:07) Swelling cyclobenzaprine HCl (From Flexeril) Allergy (Severe, Verified 10/09/24 20:07) Swelling diclofenac sodium (From Voltaren) Allergy (Severe, Verified 10/09/24 20:07) Swelling dicyclomine Allergy (Severe, Verified 10/09/24 20:07) Swelling ketoprofen (From Oruvail) Allergy (Severe, Verified 10/09/24 20:07) Swelling sulfabenzamide Allergy (Severe, Verified 10/09/24 20:07) Anaphylaxis tramadol Allergy (Unknown, Verified 10/09/24 20:07) Unknown hydroxychloroquine (From Plaquenil) Allergy (Verified 10/09/24 20:07) Hives hydroxyzine HCl (From Atarax) Allergy (Verified 10/09/24 20:07) Swelling prednisone Allergy (Verified 10/09/24 20:07) Hives pseudoephedrine HCl (From Sudafed) Allergy (Verified 10/09/24 20:07) Other cephalexin Adverse Reaction (Severe, Verified 10/09/24 20:07) Rash clindamycin Adverse Reaction (Severe, Verified 10/09/24 20:07) Hives codeine Adverse Reaction (Severe, Verified 10/09/24 20:07) Upset Stomach Current Medications Generic Name Dose Route Start Last Admin Trade Name Freq PRN Reason Stop Dose Admin Acetaminophen 650 mg 10/11/24 14:30 10/12/24 13:07 Acetaminophen 325 Mg Tablet PO 650 mg Q8 ALECIA Administration Albuterol Sulfate 2.5 mg 10/11/24 14:30 Albuterol 2.5 Mg/3 Ml Vial.Neb. INHALATION Q4H PRN Wheezing Atorvastatin Calcium 20 mg 10/12/24 10:00 10/12/24 09:00 Atorvastatin Calcium 20 Mg Tablet PO 20 mg DAILY ALECIA Administration Bisacodyl 5 mg 10/12/24 10:00 Bisacodyl 5 Mg Tablet PO DAILY PRN PRN Constipation Calcium/Vitamin D 1 tablet 10/11/24 22:00 10/12/24 09:00 Calcium Carb/Vitamin D 1 Tablet Tablet PO 1 tablet BID [facility] Administration Enoxaparin Sodium 40 mg 10/13/24 06:00 Enoxaparin 40 Mg/0.4 Ml Syringe SC DAILY@0600 ALECIA Ferrous Sulfate 325 mg 10/12/24 12:00 Ferrous Sulfate 325 Mg Tablet PO DAILY@1200 PRN supplement Gabapentin 100 mg 10/11/24 14:00 10/12/24 13:06 Gabapentin 100 Mg Capsule PO 100 mg TID [facility] Administration Lisinopril 10 mg 10/11/24 22:00 10/12/24 09:00 Lisinopril 10 Mg Tablet PO 10 mg BID [facility] Administration Protocol Magnesium Citrate 300 ml 10/11/24 14:13 Magnesium Citrate 300 Ml PO X1 PRN Constipation Magnesium Hydroxide 30 ml 10/12/24 10:00 Magnesium Hydroxide 30 Ml Udc PO DAILY PRN PRN Constipation Oxycodone HCl 5 mg 10/11/24 14:30 10/12/24 05:53 Oxycodone 5 Mg Tablet PO 5 mg Q4H PRN PRN Administration Pain Score 4-10 Polyethylene Glycol 17 gm 10/12/24 10:00 10/12/24 09:00 Polyethylene Glycol 3350 17 Gm Packet PO 17 gm DAILY [facility] Administration Senna/Docusate Sodium 1 tablet 10/11/24 22:00 10/12/24 08:59 Senna/Docusate Sodium 1 Tablet PO Not Given BID [facility] Sodium Chloride 10 - 40 ml 10/11/24 14:30 10/12/24 05:56 0.9% Saline Lock 10 Ml Syringe IV 10 ml UD PRN Administration SALINE FLUSH Tuberculin PPD 0.1 ml 10/19/24 10:00 Tuberculin,Purif.Prot.Deriv. 50 Tu/Ml Vial ID 10/19/24 10:01 X1 ONE Problem List Essential (primary) hypertension (Acute) Overactive bladder (Acute) Tinea corporis (Acute) Wheezing (Acute) Iron deficiency anemia (Acute) Neuropathic pain (Acute) Hyperlipidemia (Acute) Low back pain (Acute) Debility (Acute) Rheumatoid arthritis (Acute) Vital Signs Temp Pulse Resp BP Pulse Ox O2 Del Method 97.3 F L 64 18 107/43 L 98 Room Air 10/12/24 09:03 10/12/24 09:03 10/12/24 09:03 10/12/24 09:03 10/12/24 09:03 10/12/24 09:03 Oxygen Delivery Method Room Air Weight: 76.294 kg Body Mass Index (BMI) 31.8 Sodium 138 mmol/L (133-145) 10/12/24 05:19 Potassium 4.1 mmol/L (3.3-5.1) 10/12/24 05:19 Chloride 108 mmol/L (98-108) 10/12/24 05:19 Carbon Dioxide 21.9 mmol/L (21.0-32.0) 10/12/24 05:19 Anion Gap 9 (5-15) 10/12/24 05:19 BUN 29 mg/dL (4-19) H 10/12/24 05:19 Creatinine 0.70 mg/dL (0.70-1.20) 10/12/24 05:19 Est GFR (MDRD) Non-Af 83 (>60) 10/12/24 05:19 BUN/Creatinine Ratio 40.7 RATIO (10-20) H 10/12/24 05:19 Glucose 98 mg/dL (70-99) 10/12/24 05:19 Assessment/Plan: 1. Pain: acetaminophen 1000mg PO Q8 and oxycodone 5mg PO Q4H PRN pain 4-10. Resident has had 2 doses of oxycodone for pain scores of 8-9 in the back/buttock/hip. Please continue to monitor for increased pain, PRN usage, constipation, respiratory depression, falls (BEERs) and LFTs (last 12/22/23). 2. Bowel: Miralax 17gm PO daily, senna/docusate 1T PO BID, magnesium citrate 300mL PO daily PRN constipation, MOM 30mL PO daily PRN constipation and bisacodyl 5mg PO daily PRN constipation. No PRN doses have been given. Please continue to monitor for constipation, PRN usage. Last documented bowel movement was 10/10/24. 3. DVT prophylaxis: enoxaparin 40mg SC daily. Please continue to monitor for S/S of bleeding/DVT, hemoglobin (last 11.1g/dL), renal function and platelets (last 141,000). 4. Hyperlipidemia: atorvastatin 20mg PO QHS. Please consider ordering a lipid panel as the last panel is from 2022. Thanks. Please continue to monitor LFTs (last 12/22/23) and muscle pain. 5. Hypertension: lisinopril 10mg PO BID. Please continue to monitor BP (range 107-109/43-51), potassium (last 4.1mmol/L), cough and renal function. 6. Iron deficiency anemia: ferrous sulfate 325mg PO daily PRN supplement. Please consider adding clearer instructions as to the PRN reason or changing to scheduled daily. Thanks. Please continue to monitor hemoglobin (last 11.1g/dL), constipation and dark stools. 7. Neuropathic pain: gabapentin 100mg PO TID. Please consider changing to BID as appropriate for CrCl of 46 mL/min. Thanks. Please continue to monitor for neuropathic pain, renal function, confusion, falls/fractures (BEERs). 8. Overactive bladder: vibegron 75mg PO daily. Please continue to monitor for S/S of OAB, constipation and dry mouth. 9. Wheezing: albuterol 2.5mg inhalation Q4H PRN wheezing. No PRN doses so far. Please continue to monitor for PRN usage and wheezing. 10. Calcium deficiency: calcium/vitamin D 1T PO BID. Please consider ordering a vitamin D level as there is no level in the chart. Thanks. Please continue to monitor calcium (last 9.2mg/dL). Assessment/Plan for indications treated with psychotropic medications: Resident is not prescribed scheduled or prn psychotropic medications at the time of this drug regimen review. Medical chart and medication regimen reviewed. The following medication irregularities or issues were identified: 1. Atorvastatin 20mg PO QHS. Please consider ordering a lipid panel as the last panel is from 2022. Thanks. 2. Ferrous sulfate 325mg PO daily PRN supplement. Please consider adding clearer instructions as to the PRN reason or changing to scheduled daily. Thanks. 3. Calcium/vitamin D 1T PO BID. Please consider ordering a vitamin D level as there is no level in the chart. Thanks. Date Date of Note: 10/12/24 Documented by User: Dr. Philip Russ MD 10/12/24 17:24 TCU RX Drug Regimen Review Provider Comments Provider responsibility Provider Comments to Recommendations by Pharmacy Agree
[2024-10-13] MEDS: Gabapentin 100 MG Capsule PO ×3 (05:15→22:06)
[2024-10-13] MEDS: Acetaminophen 325 MG Tablet 650 MG PO ×3 (05:15→22:09)
[2024-10-13] MEDS: Enoxaparin 40 MG/0.4 ML Syringe SC (05:17)
[2024-10-13 09:48] LABS: Cholesterol 119 mg/dL (<=200); High Density Lipoprotein 46 mg/dL; Low Density Lipoprotein Calc. 55 mg/dL; Triglycerides 92 mg/dL; Very Low Density Lipoprotein 18 mg/dL (5-40); Vitamin D,25 Hydroxy 19.6 ng/mL (30-100); cholesterol:hdl ratio screen 2.59
[2024-10-13 10:26] VITALS: BP 144/78; PULSE 64; RESP 17; TEMP 36.2; O2SAT 97
[2024-10-13] MEDS: Vibegron 75 MG TABLET PO (10:29)
[2024-10-13] MEDS: Calcium Carb/Vitamin D 1 TABLET Tablet PO ×2 (10:30→22:08)
[2024-10-13] MEDS: Polyethylene Glycol 3350 17 GM PACKET PO (10:30)
[2024-10-13] MEDS: Atorvastatin Calcium 20 MG Tablet PO (10:30)
[2024-10-13] MEDS: Lisinopril 10 MG Tablet PO ×2 (10:30→22:09)
--- NOTE | 2024-10-13 17:27 | CASEMGMT ---
Social Work SW met with patient to complete initial assessment. Introduced self and role. Verified contacts. Patient confirmed code status of DNRCCA W/ intubation. Educated on [employer] insurance with continued stay not guaranteed with each review. Patients goal is to return home . SW will continue to follow for DC planning. Hortensia Jaramillo, GRINDING WHEEL FACER, SUPERVISOR CELL OPERATION
[2024-10-13 22:00] VITALS: PULSE 71; RESP 16
[2024-10-14] MEDS: oxyCODONE 5 MG Tablet PO ×3 (00:24→22:24)
[2024-10-14] MEDS: Acetaminophen 325 MG Tablet 650 MG PO ×3 (05:58→22:26)
[2024-10-14] MEDS: Enoxaparin 40 MG/0.4 ML Syringe SC (05:58)
[2024-10-14] MEDS: Gabapentin 100 MG Capsule PO ×3 (05:59→22:24)
[2024-10-14 06:13] VITALS: PULSE 68; RESP 18
[2024-10-14] MEDS: Vibegron 75 MG TABLET PO (09:43)
[2024-10-14] MEDS: Calcium Carb/Vitamin D 1 TABLET Tablet PO ×2 (09:43→22:25)
[2024-10-14] MEDS: Polyethylene Glycol 3350 17 GM PACKET PO (09:43)
[2024-10-14] MEDS: Atorvastatin Calcium 20 MG Tablet PO (09:43)
[2024-10-14] MEDS: Lisinopril 10 MG Tablet PO ×2 (09:44→22:27)
[2024-10-14 10:00] VITALS: BP 134/59; PULSE 67; RESP 16; TEMP 36.4; O2SAT 96
--- NOTE | 2024-10-14 10:22 | NURSING ---
Leaf Conditioner Helper Note; Activity Asset: Adrienne Davis prefers to be called Kareen. She is independent in her choice of daily activities such as reading, word search, tv and her family will visit. She welcomes visits from the pipe fitter marine and therapy dog when available. Staff will encourage social activities, remind her of weekly activities and respect her right to say no.
[2024-10-14] MEDS: Ferrous Sulfate 325 MG Tablet PO (13:44)
--- NOTE | 2024-10-14 15:26 | CHAPLAIN ---
Type of Pastoral Visit ___ Initial Visit ___ Follow-up Visit ___ On-call Visit ___ General Patient Visit ___ Spiritual Assessment ___ Family Conference ___ Bereavement ___ Rapid Response ___ Code Blue ___ Other (describe below) Pastoral Care Referral From ___ Patient ___ Family ___ Nurse ___ Physician ___ Special Education Educational Assistant ___ Security Assurance Analyst ___ Other (describe below) Sacrament/Intervention ___ Active listening ___ Anointing ___ Muslim ___ Bereavement ___ Communion ___ Deneen exploration ___ ___ Life review ___ Prayer ___ Reconciliation ___ Sacrament of Sick ___ Supportive presence ___ Wedding ___ Other (describe below) Pastoral Comments patient and daughter are in the room; pt is open to talk about her life and situation; pt has a son that is a chicken stuffer and gives some common background on topics of common interest; daughter joins in the conversation too; pt gives more life review; pt has a long time connection to a [employer]onism and expresses sadness that it is floundering with low attendance and very few young people; pt welcomes prayers for support today
[2024-10-14] MEDS: 0.9% Saline Lock 10 ML Syringe IV ×2 (17:39→22:24)
[2024-10-14] MEDS: MELATONIN 3 MG TABLET PO (22:25)
[2024-10-14 22:36] VITALS: BP 136/55; PULSE 62
[2024-10-15 03:55] VITALS: RESP 16
[2024-10-15] MEDS: Enoxaparin 40 MG/0.4 ML Syringe SC (05:37)
[2024-10-15] MEDS: Acetaminophen 325 MG Tablet 650 MG PO ×3 (05:37→21:29)
[2024-10-15] MEDS: Gabapentin 100 MG Capsule PO ×3 (05:37→21:27)
[2024-10-15 10:16] VITALS: BP 114/51; PULSE 66; RESP 16; TEMP 36.4; O2SAT 97
[2024-10-15] MEDS: Atorvastatin Calcium 20 MG Tablet PO (10:28)
[2024-10-15] MEDS: Vibegron 75 MG TABLET PO (10:28)
[2024-10-15] MEDS: Calcium Carb/Vitamin D 1 TABLET Tablet PO ×2 (10:28→21:29)
[2024-10-15] MEDS: Lisinopril 10 MG Tablet PO ×2 (10:29→21:30)
[2024-10-15] MEDS: oxyCODONE 5 MG Tablet PO (10:29)
[2024-10-15] MEDS: Ferrous Sulfate 325 MG Tablet PO (12:19)
[2024-10-15] MEDS: MELATONIN 3 MG TABLET PO (21:28)
[2024-10-15 21:38] VITALS: BP 129/52; PULSE 70
[2024-10-16] MEDS: Enoxaparin 40 MG/0.4 ML Syringe SC (05:25)
[2024-10-16] MEDS: Acetaminophen 325 MG Tablet 650 MG PO ×3 (05:25→20:16)
[2024-10-16] MEDS: Gabapentin 100 MG Capsule PO ×3 (05:25→20:16)
[2024-10-16 05:45] VITALS: RESP 16
[2024-10-16] MEDS: Lisinopril 10 MG Tablet PO ×2 (09:10→20:15)
[2024-10-16] MEDS: Vibegron 75 MG TABLET PO (09:10)
[2024-10-16] MEDS: Calcium Carb/Vitamin D 1 TABLET Tablet PO ×2 (09:10→20:15)
[2024-10-16] MEDS: Atorvastatin Calcium 20 MG Tablet PO (09:10)
[2024-10-16] MEDS: 0.9% Saline Lock 10 ML Syringe IV (09:11)
[2024-10-16] MEDS: Senna/Docusate Sodium 1 Tablet PO ×2 (09:11→20:16)
[2024-10-16] MEDS: oxyCODONE 5 MG Tablet PO (12:23)
[2024-10-16] MEDS: Ferrous Sulfate 325 MG Tablet PO (12:23)
[2024-10-16 12:53] VITALS: BP 105/50; PULSE 74; RESP 16; TEMP 36.6; O2SAT 96
[2024-10-16] MEDS: MELATONIN 3 MG TABLET PO (20:15)
[2024-10-17] MEDS: Gabapentin 100 MG Capsule PO ×3 (05:20→21:09)
[2024-10-17] MEDS: Acetaminophen 325 MG Tablet 650 MG PO ×3 (05:21→21:12)
[2024-10-17] MEDS: Enoxaparin 40 MG/0.4 ML Syringe SC (05:22)
[2024-10-17] MEDS: Lisinopril 10 MG Tablet PO ×2 (08:57→21:12)
[2024-10-17] MEDS: Polyethylene Glycol 3350 17 GM PACKET PO (08:57)
[2024-10-17] MEDS: Atorvastatin Calcium 20 MG Tablet PO (08:57)
[2024-10-17] MEDS: Calcium Carb/Vitamin D 1 TABLET Tablet PO ×2 (08:57→21:12)
[2024-10-17] MEDS: Senna/Docusate Sodium 1 Tablet PO (08:57)
[2024-10-17] MEDS: Vibegron 75 MG TABLET PO (08:58)
[2024-10-17 09:01] VITALS: BP 111/46; PULSE 71; RESP 16; TEMP 36.1; O2SAT 98
[2024-10-17] MEDS: Ferrous Sulfate 325 MG Tablet PO (11:59)
[2024-10-17] MEDS: 0.9% Saline Lock 10 ML Syringe IV (13:11)
--- NOTE | 2024-10-17 15:35 | CASEMGMT ---
Social Work SW completed BIMS () and PHQ-2 () for MDS assessment. Tenisha Stroud FIXTURE RELAMPER COMPENSATION CONSULTING MANAGER
[2024-10-17] MEDS: COVID VAC 24-25 (12UP)(MODERNA)/PF 50 MCG/0.5 ML SYRINGE IM (17:36)
[2024-10-17] MEDS: oxyCODONE 5 MG Tablet PO (17:36)
[2024-10-17 20:00] VITALS: PULSE 68; RESP 18; O2SAT 98
[2024-10-17] MEDS: Nystatin Powder 15gm Bottle 1 APPLIC TOPICAL (21:08)
[2024-10-17] MEDS: MELATONIN 3 MG TABLET PO (21:12)
[2024-10-17 21:19] VITALS: BP 111/43; PULSE 68; RESP 16; O2SAT 98
[2024-10-18] MEDS: oxyCODONE 5 MG Tablet PO ×2 (03:49→20:44)
[2024-10-18] MEDS: Acetaminophen 325 MG Tablet 650 MG PO ×3 (06:27→20:46)
[2024-10-18] MEDS: Gabapentin 100 MG Capsule PO ×3 (06:27→20:46)
[2024-10-18] MEDS: Enoxaparin 40 MG/0.4 ML Syringe SC (06:27)
[2024-10-18 06:34] VITALS: PULSE 70; RESP 16; O2SAT 98
[2024-10-18] MEDS: Calcium Carb/Vitamin D 1 TABLET Tablet PO ×2 (08:57→20:45)
[2024-10-18] MEDS: Lisinopril 10 MG Tablet PO ×2 (08:57→20:46)
[2024-10-18] MEDS: Atorvastatin Calcium 20 MG Tablet PO (08:57)
[2024-10-18] MEDS: Vibegron 75 MG TABLET PO (08:58)
[2024-10-18] MEDS: Nystatin Powder 15gm Bottle 1 APPLIC TOPICAL ×2 (08:58→20:47)
[2024-10-18] MEDS: Ferrous Sulfate 325 MG Tablet PO (12:56)
[2024-10-18 13:13] VITALS: BP 117/53; PULSE 69; RESP 16; TEMP 36.6; O2SAT 98
[2024-10-18 13:49] VITALS: BMI 31.9
[2024-10-18] MEDS: MELATONIN 3 MG TABLET PO (20:45)
[2024-10-18] MEDS: Senna/Docusate Sodium 1 Tablet PO (20:46)
[2024-10-19] MEDS: Enoxaparin 40 MG/0.4 ML Syringe SC (05:45)
[2024-10-19] MEDS: Gabapentin 100 MG Capsule PO ×3 (05:45→21:16)
[2024-10-19] MEDS: Acetaminophen 325 MG Tablet 650 MG PO ×3 (05:46→21:18)
[2024-10-19 06:11] LABS: Absolute Lymphocyte Count 1.78 X10^3/uL (0.83-4.51); Absolute Neutrophil Count 1.7 X10^3/uL (2.0-7.7); Basophil# 0.04 X10^3/uL; Basophil% 0.9 % (0-1); Eosinophil# 0.16 X10^3/uL; Eosinophils% 3.4 % (0-5); Hemoglobin 11.1 g/dL (12.0-15.0); Lymphocyte # 1.78 X10^3/ul (0.83-4.51); Lymphocyte % 38.2 % (19-41); Mean Corp Hgb Conc 32.6 g/dL (32-36); Mean Corpuscular Volume 91.9 fL (81-99); Mean Platelet Vol. 9.6 fl (6.2-12.0); Monocyte# 0.97 X10^3/uL; Monocyte% 20.8 % (0-10); NRBC Flagged by Analyzer 0 % (0-5); Neutrophil % 36.5 % (47-70); Platelet Count 152 K/mm3 (150-450); RBC Distribution Width SD 43.8 fl (35.1-43.9); White Blood Count 4.7 K/mm3 (4.4-11.0)
[2024-10-19 06:45] LABS: Anion Gap 10 (5-15); BUN 27 mg/dL (4-19); Calcium,Total 9.2 mg/dL (7.6-11.0); Chloride 105 mmol/L (98-108); Creatinine, Serum 0.85 mg/dL (0.70-1.20); EST Glomerular Filtration Rate 66 (>60); Estimated Creatinine Clearance 43.72 ml/min (50-250); Glucose 118 mg/dL (70-99); Potassium 4.3 mmol/L (3.3-5.1); Sodium Level 138 mmol/L (133-145)
--- NOTE | 2024-10-19 08:42 | NURSING ---
Contract Negotiation Specialist Note; MDS for 10/18/2024 Complete
[2024-10-19 09:40] VITALS: BP 106/96; PULSE 68; RESP 18; TEMP 36.6; O2SAT 96
[2024-10-19] MEDS: Lisinopril 10 MG Tablet PO ×2 (09:49→21:18)
[2024-10-19] MEDS: Vibegron 75 MG TABLET PO (09:49)
[2024-10-19] MEDS: Atorvastatin Calcium 20 MG Tablet PO (09:49)
[2024-10-19] MEDS: Calcium Carb/Vitamin D 1 TABLET Tablet PO ×2 (09:49→21:18)
[2024-10-19] MEDS: oxyCODONE 5 MG Tablet PO ×2 (09:53→21:16)
--- NOTE | 2024-10-19 10:08 | CASEMGMT ---
Social Work IDT met with patient and two dtrs for care plan meeting. Discussed patient's progress in PT/OT/ST/SN/RDN. Educated to [facility] insurance with NRD 10/17 and continued stay is not guaranteed with each review. Outcome is still pending. SW discussed skilled HHC vs OP therapy and DME needs at DC. Pt denied any DME needs and will decide on therapy at time of DC. Pt/family voiced no concerns with DC home. SW will continue to follow for DC planning. Tenisha Stroud CARTON COUNTER FEEDER DRAY TRUCK DRIVER
[2024-10-19] MEDS: Tuberculin,Purif.prot.deriv. 50 TU/ML Vial 0.1 ML ID (12:07)
[2024-10-19] MEDS: Ferrous Sulfate 325 MG Tablet PO (12:07)
[2024-10-19] MEDS: Nystatin Powder 15gm Bottle 1 APPLIC TOPICAL ×2 (12:10→21:18)
--- NOTE | 2024-10-19 16:30 | CASEMGMT ---
Social Work Insurance issued LCD 10/21, DC 10/22 SW presented to room. Pt had two visitors. SW requested to speak with pt and pt granted permission for SW to speak with family visitors present. SW informed of insurance DC 10/22. SW provided NOMNC to pt and educated to appeal rights. Pt verbalized understanding and denied appeal. Pt is agreeable to DC and prefers skilled HHC. SW provided list of skilled HHC agencies within geographical area, [place] with insurance, that include quality and resource data via [facility] guide. SW educated HHC agency will contact pt for SOC date date, but typically 2-3 days after DC, pending PCP signing orders. Pt to discuss with family and notify SW of HHC preferences and any DME needs. SW will follow to finalize needs. Plan: DC home 10/22, HHC PT/OT/SN Tenisha DARLINGW
--- NOTE | 2024-10-19 20:27 | PCM.DC.SUM ---
Providers Date of Admission: 10/11/24 Primary Care Physician: Dr. Rubin Rodriguez MD Reason For Visit: FALL WITH INABILITY TO AMBULATE Diagnosis Discharge Diagnosis (1) Debility: Status: Acute Code(s): R53.81 - Other malaise (2) Low back pain: Status: Acute Code(s): M54.50 - Low back pain, unspecified (3) Rheumatoid arthritis: Status: Acute Code(s): M06.9 - Rheumatoid arthritis, unspecified (4) Hyperlipidemia: Status: Acute Code(s): E78.5 - Hyperlipidemia, unspecified (5) Neuropathic pain: Status: Acute Code(s): M79.2 - Neuralgia and neuritis, unspecified (6) Iron deficiency anemia: Status: Acute Code(s): D50.9 - Iron deficiency anemia, unspecified (7) Wheezing: Status: Acute Code(s): R06.2 - Wheezing (8) Tinea corporis: Status: Acute Code(s): B35.4 - Tinea corporis (9) Overactive bladder: Status: Acute Code(s): N32.81 - Overactive bladder (10) Essential (primary) hypertension: Status: Acute Code(s): I10 - Essential (primary) hypertension Plan 89 year old female with below past medical history hospitalized for low back pain after fall, no fractures on imaging, admitted to TCU with debility, here for rehabilitation, strengthening, prior to discharge home alone. Debility - PT/OT. Pain - Tylenol 650mg q8, Oxycodone 5mg q4 prn. Bowel - Miralax 17gm daily, senna/coalce 1 tablet bid, Magnesium citrate 300mL daily prn, Dulcolax 5mg daily prn. Adult immunization - Administer pneumonia vaccine, covid vaccine, flu vaccine as appropriate. DVT prophylaxis - Hold, monitor. Wheezing - Albuterol 2.5mg neb q4 prn. Indigestion - MOM 30mL daily prn. Hyperlipidemia - Atorvastatin 20mg qhs. Calcium deficiency - Calcium D 1 tablet bid. Iron deficiency anemia - Ferrous sulfate 325mg daily prn. Neuropathic pain - Gabapentin 100mg tid. Hypertension - Lisinopril 10mg bid. Overactive bladder - Gemtesa 75mge daily. 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 Cutting Machine Operator 09/16/22 atorvastatin 20 mg tablet 20 mg PO DAILY blood pressure 10/27/23 gabapentin 100 mg capsule 100 mg PO TID nerve pain #90 caps 06/16/24 ferrous sulfate 325 mg (65 mg iron) tablet (FeroSul) 325 mg PO QDAY PRN supplement 07/13/24 lisinopril 10 mg tablet 10 mg PO BID blood pressure #180 tabs 10/04/24 mirabegron 25 mg tablet,extended release 24 hr (Myrbetriq) 25 mg PO BID overactive bladder 10/10/24 bisacodyl 5 mg tablet,delayed release 5 mg PO DAILY PRN PRN Constipation #0 tabs 10/11/24 acetaminophen 325 mg tablet 650 mg (2 x 325 mg) PO Q8 #0 tabs 10/19/24 calcium carbonate 500 mg (2.5 x 200 mg calcium (500 mg)) PO Q4H PRN PRN Indigestion #0 tabs 10/19/24 melatonin 3 mg tablet 3 mg PO QHS #0 tabs 10/19/24 oxycodone 5 mg tablet 5 mg PO Q4H PRN PRN Pain Score 4-10 7 days #42 tabs 10/19/24 sennosides 8.6 mg-docusate sodium 50 mg tablet (Stimulant Laxative Plus) 1 tab PO BID 30 days #60 tabs 10/19/24 Hospital Course Operations None Procedures None Summary of Care Provided Minutes Spent on Discharge: 35 Hospital Course: 89 year old female with below past medical history hospitalized for low back pain after fall, no fractures on imaging, admitted to TCU with debility, here for rehabilitation, strengthening, prior to discharge home alone. Discharge home 10/22/2024, [facility] PT/OT/SN. Physical Exam Const alert General Appearance: cooperative HEENT normocephalic Eyes PERRL and EOMs intact bilaterally Neck supple, no JVD and no carotid bruits Resp normal respiratory effort, normal air movement and clear to auscultation bilaterally Cardio regular rate and regular rhythm GI normal to inspection, nondistended, normoactive bowel sounds, non-tender and non-distended Extremity normal capillary refill General Extremity: Negative for edema Skin no rashes or lesions noted General Skin Exam: no breakdown Psych affect normal Appearance: appropriate Weight / BMI Weight Weight: 76.793 kg Body Mass Index (BMI) 31.9 ABG / Lab / Microbiology Data 10/19/24 06:05 10/19/24 06:05 Laboratory: Laboratory Results - last 24 hr 10/19/24 06:05: WBC 4.7, RBC 3.70 L, Hgb 11.1 L, Hct 34.0 L, MCV 91.9, MCH 30.0, MCHC 32.6, RDW Std Deviation 43.8, RDW Coeff of Lizbet 13.0, Plt Count 152, MPV 9.6, Immature Gran % (Auto) 0.200, Neut % (Auto) 36.5 L, Lymph % (Auto) 38.2, Hood % (Auto) 20.8 H, Eos % (Auto) 3.4, Baso % (Auto) 0.9, Absolute Neuts (auto) 1.7 L, Absolute Lymphs (auto) 1.78, Nucleated RBC % 0, Sodium 138, Potassium 4.3, Chloride 105, Carbon Dioxide 23.0, Anion Gap 10, BUN 27 H, Creatinine 0.85, Estim Creat Clear Calc 43.72 L, Est GFR (MDRD) Non-Af 66, BUN/Creatinine Ratio 32.0 H, Glucose 118 H, Calcium 9.2 D/C Instructions Discharge Diet: No restrictions Discharge Activity: Return to Normal Activity, May Shower and Use Walker Weight Bearing Status: Weight bearing as tolerated Call your doctor if you observe: Fever of 101 or Higher, Inability to urinate, Inability to have a bowel movement, Shortness of breath, Dizziness, Fainting spells, Swelling in the ankles, Chest pain and Uncontrolled pain DC O2, CPAP, BIPAP Needs Home O2 Discharge instructions: No Additional Instructions: Discharge home 10/22/2024, [facility] PT/OT/SN. Meaningful Use Info Meaningful Use Meaningful Use Diagnoses (Choose all that apply): None applicable Ischemic Stroke Statin Dosing Therapy Reference: STATIN DOSE THERAPY REFERENCE: * Patients > 75 years receive moderate or high dose statin therapy. * Patients 75 years or YOUNGER should receive HIGH intensity statin dose unless contraindicated. You will be required to document reason for non-treatment if statin daily dose does not meet guidelines. HIGH DOSE STATIN THERAPY DAILY Atorvastatin > than or = to 40 mg Rosuvastatin > than or = to 20 mg Amlodipine + Atorvastatin > than or = to 2.5/40 mg Ezetimibe + Simvastatin 10/80 mg Simvastatin 80mg Discharge Plan Admission Admit Date/Time: 10/11/24 13:20 Primary Reason for Your Visit: Debility. Attending Provider: Philip Russ Chi Primary Care Provider: Rubin Rodriguez Instructions Additional Instructions / Restrictions: Discharge home 10/22/2024, [facility] PT/OT/SN. Discharge Orders/Prescriptions Prescriptions: New acetaminophen 325 mg Tablet 650 mg PO Q8 Qty: 0 0RF sennosides-docusate sodium [Stimulant Laxative Plus] 8.6-50 mg Tablet 1 tab PO BID 30 Days Qty: 60 0RF melatonin 3 mg Tablet 3 mg PO QHS Qty: 0 0RF calcium carbonate 200 mg calcium (500 mg) Tablet,Chewable 500 mg PO Q4H PRN PRN (Reason: Indigestion) Qty: 0 0RF oxycodone 5 mg Tablet 5 mg PO Q4H PRN PRN (Reason: Pain Score 4-10) 7 Days Qty: 42 0RF Continued atorvastatin 20 mg tablet 20 mg PO DAILY ferrous sulfate [FeroSul] 325 mg (65 mg iron) tablet 325 mg PO QDAY PRN (Reason: supplement) gabapentin 100 mg capsule 100 mg PO TID Qty: 90 8RF calcium citrate-vitamin D3 315 mg-6.25 mcg (250 unit) tablet 1 tab PO BID Patient Comments: vitamin mirabegron [Myrbetriq] 25 mg tablet extended release 24 hr 25 mg PO BID bisacodyl 5 mg Tablet,Delayed Release (Dr/Ec) 5 mg PO DAILY PRN PRN (Reason: Constipation) Qty: 0 0RF lisinopril 10 mg tablet 10 mg PO BID Qty: 180 3RF Discontinued acetaminophen [Tylenol Arthritis Pain] 650 mg tablet extended release 650 mg PO Q8H albuterol sulfate [Ventolin HFA] 90 mcg/actuation HFA aerosol inhaler 2 puff inhalation Q4H PRN PRN (Reason: Wheezing) 30 Days Qty: 6.7 0RF oxycodone 5 mg Tablet 5 mg PO Q4H PRN PRN (Reason: Pain Score 4-10) Qty: 0 0RF Referrals / Follow Up: Rubin Rodriguez MD [Primary Care Provider] - Disposition Disposition (needs filled in before D/C Order can be placed): Home Health Service
[2024-10-19] MEDS: Calcium Carbonate 500 MG Tablet PO (21:17)
[2024-10-19] MEDS: MELATONIN 3 MG TABLET PO (21:17)
[2024-10-19 21:30] VITALS: BP 142/59; PULSE 68
[2024-10-20] MEDS: Enoxaparin 40 MG/0.4 ML Syringe SC (06:14)
[2024-10-20] MEDS: Acetaminophen 325 MG Tablet 650 MG PO ×3 (06:14→21:27)
[2024-10-20] MEDS: Gabapentin 100 MG Capsule PO ×3 (06:14→21:26)
[2024-10-20 08:53] VITALS: BP 110/44; PULSE 71; RESP 17; TEMP 36.6; O2SAT 96
[2024-10-20] MEDS: Nystatin Powder 15gm Bottle 1 APPLIC TOPICAL ×2 (08:57→21:27)
[2024-10-20] MEDS: Polyethylene Glycol 3350 17 GM PACKET PO (08:57)
[2024-10-20] MEDS: Atorvastatin Calcium 20 MG Tablet PO (08:57)
[2024-10-20] MEDS: Vibegron 75 MG TABLET PO (08:57)
[2024-10-20] MEDS: Calcium Carb/Vitamin D 1 TABLET Tablet PO ×2 (08:58→21:28)
[2024-10-20] MEDS: Lisinopril 10 MG Tablet PO ×2 (08:58→21:27)
--- NOTE | 2024-10-20 09:36 | CASEMGMT ---
Social Work SW received call from dtrLillian, with [facility]HC [facility]. SW to place referral. SW answered dtr's questions pertaining to HHC. SW educated to insurance determining frequency and duration after evaluations.SW educated HHC agency will contact pt for SOC date date, but typically 2-3 days after DC, pending PCP signing orders. Dtr requested she be contacted for SOC and ongoing visits. SW agreed to notify HHC. Dtr appreciative. Dtr voiced on behalf of pt and her family, they have been very happy with care pt has been receiving - staff is just so wonderful. SW appreciative of compliment. - MELINDA phoned referral to [facility] for PT/OT/SN Tenisha DARLINGW
[2024-10-20] MEDS: Ferrous Sulfate 325 MG Tablet PO (12:31)
[2024-10-20] MEDS: oxyCODONE 5 MG Tablet PO (21:26)
[2024-10-20] MEDS: MELATONIN 3 MG TABLET PO (21:28)
[2024-10-21] MEDS: oxyCODONE 5 MG Tablet PO (06:24)
[2024-10-21] MEDS: Gabapentin 100 MG Capsule PO ×3 (06:24→20:51)
[2024-10-21] MEDS: Enoxaparin 40 MG/0.4 ML Syringe SC (06:24)
[2024-10-21] MEDS: Acetaminophen 325 MG Tablet 650 MG PO ×3 (06:25→20:57)
[2024-10-21] MEDS: Vibegron 75 MG TABLET PO (09:21)
[2024-10-21] MEDS: Senna/Docusate Sodium 1 Tablet PO (09:22)
[2024-10-21] MEDS: Atorvastatin Calcium 20 MG Tablet PO (09:22)
[2024-10-21] MEDS: Lisinopril 10 MG Tablet PO ×2 (09:22→20:57)
[2024-10-21] MEDS: Calcium Carb/Vitamin D 1 TABLET Tablet PO ×2 (09:23→20:57)
[2024-10-21] MEDS: Nystatin Powder 15gm Bottle 1 APPLIC TOPICAL ×2 (09:24→20:56)
[2024-10-21] MEDS: Menthol/Lanolin/Calamine/Znox 113 GM Tube 1 APPLIC TOPICAL ×2 (09:27→20:56)
[2024-10-21 09:30] VITALS: BP 104/71; PULSE 61; RESP 15; TEMP 36.5; O2SAT 100
--- NOTE | 2024-10-21 12:35 | CASEMGMT ---
Social Work SW completed BIMS () and PHQ-2 () for MDS assessment. Tenisha Stroud TRAVOGRAPH OPERATOR PATTERN PUNCHER
[2024-10-21] MEDS: Ferrous Sulfate 325 MG Tablet PO (13:06)
[2024-10-21 20:53] VITALS: BP 123/46
[2024-10-21] MEDS: MELATONIN 3 MG TABLET PO (20:57)
[2024-10-22] MEDS: Enoxaparin 40 MG/0.4 ML Syringe SC (05:54)
[2024-10-22] MEDS: Gabapentin 100 MG Capsule PO (05:54)
[2024-10-22] MEDS: Acetaminophen 325 MG Tablet 650 MG PO (05:54)
[2024-10-22 06:39] VITALS: PULSE 81; RESP 16; O2SAT 96
[2024-10-22 06:44] VITALS: BP 118/53; PULSE 66; RESP 16; TEMP 36.3; O2SAT 98
[2024-10-22 09:44] VITALS: BP 111/57; PULSE 71; RESP 16; TEMP 36.6; O2SAT 98
[2024-10-22] MEDS: Menthol/Lanolin/Calamine/Znox 113 GM Tube 1 APPLIC TOPICAL (09:46)
[2024-10-22] MEDS: Atorvastatin Calcium 20 MG Tablet PO (09:47)
[2024-10-22] MEDS: Vibegron 75 MG TABLET PO (09:47)
[2024-10-22] MEDS: Nystatin Powder 15gm Bottle 1 APPLIC TOPICAL (09:47)
[2024-10-22] MEDS: Calcium Carb/Vitamin D 1 TABLET Tablet PO (09:47)
[2024-10-22] MEDS: Lisinopril 10 MG Tablet PO (09:48)
[2024-10-22] MEDS: Ferrous Sulfate 325 MG Tablet PO (11:34)
--- NOTE | 2024-10-24 08:48 | MDS.RN ---
Information for the MDS was obtained from review of the clinical record, interview of resident, staff, and direct observation of resident?s care.
== END 2024-10-22 13:06 | disposition home health service (06) | DRG 552 ==
PROVIDERS: Admitting Provider Family Medicine Geriatric Medicine; PCP Family Medicine; Referring Provider Family Medicine Geriatric Medicine; Visit Provider Family Medicine Geriatric Medicine
DX: M54.50 Low back pain, unspecified (principal); B35.4 Tinea corporis; M06.9 Rheumatoid arthritis, unspecified; D50.9 Iron deficiency anemia, unspecified; E78.00 Pure hypercholesterolemia, unspecified; I10 Essential (primary) hypertension; N32.81 Overactive bladder; Z79.899 Other long term (current) drug therapy; G47.00 Insomnia, unspecified; Z23 Encounter for immunization
CPT/HCPCS: 36415; 80048; 80061; 82306; 85025; 90480; 91322; 97110; 97116; 97162; 97166; 97530; 97535; 97802; A4216

== ENCOUNTER → 2025-02-03 | Outpatient (CLI) | payer MEDICARE, SELFPAY | END | disposition home or self-care (01) | LOC: OPBI 13:46 | PROVIDERS: PCP Family Medicine; Referring Provider Family Medicine; Visit Provider Family Medicine | DX: N64.4 Mastodynia (principal) | CPT/HCPCS: 76642; 77066 ==